=== PATIENT | female | born 1950 | race Caucasian/White ===

== ENCOUNTER 2022-07-15 12:17 | Outpatient (CLI) | payer BC, SELFPAY ==
--- NOTE | 2022-07-15 13:02 | ECHO_ITS ---
Patient Info Name: Elena Fernández Age: 71 years : 1950 Gender: Female Ht: 63 in Wt: 146 lbs BSA: 1.73 m2 HR: 78 bpm BP: 142 / 83 mmHg Technical Quality: Good Exam Date: 07/15/2022 1:45 PM Exam Location: [facility] Patient Status: Outpatient Admit Date: 07/15/2022 Staff Ordering Physician: Jareth Lopez MD Director Of Retail Operations: Zulay Izquierdo RDCS Attending Provider: Jareth Lopez MD Referring Physician: John MALIK; Exam Type: CA echo doppler color flow Study Info Indications - cardiac murmur Complete two-dimensional, color flow and Doppler transthoracic echocardiogram is performed. Summary 1. Complete two-dimensional, color flow and Doppler transthoracic echocardiogram is performed. 2. Left ventricular chamber dimension is normal. 3. Left ventricular systolic function is normal, estimated at 65-70%. 4. The left ventricular diastolic function is grade I diastolic dysfunction. 5. E/e' 10 is mildly elevated. 6. There is moderate aortic valve sclerosis. 7. There is mild aortic valve stenosis with a peak velocity of 222 cm/s, mean gradient of 11 mmHg, and aortic valve area of 1.7 cm2. 8. The mitral valve has mildly calcified annulus. 9. There is trace mitral valve regurgitation. 10. There is trace tricuspid valve regurgitation. 11. No pulmonary hypertension, estimated pulmonary arterial systolic pressure is 27 mmHg. Left Ventricle E/e' 10 is mildly elevated. Left ventricular chamber dimension is normal. Left ventricular systolic function is normal, estimated at 65-70%. The left ventricular diastolic function is grade I diastolic dysfunction. Right Ventricle Right ventricular chamber dimension is normal. Right ventricular systolic function is normal. Left Atria Left atrial chamber dimension is normal. Right Atria Right atrial chamber dimension is normal. Aortic Valve The aortic valve is trileaflet. There is moderate aortic valve sclerosis. There is mild aortic valve stenosis with a peak velocity of 222 cm/s, mean gradient of 11 mmHg, and aortic valve area of 1.7 cm2. There is no aortic valve regurgitation. Pulmonic Valve There is no pulmonic regurgitation. Mitral Valve The mitral valve has mildly calcified annulus. There is no mitral valve stenosis. There is trace mitral valve regurgitation. Tricuspid Valve There is trace tricuspid valve regurgitation. No pulmonary hypertension, estimated pulmonary arterial systolic pressure is 27 mmHg. Pericardium/Pleural There is no pericardial effusion. Inferior Vena Cava Normal inferior vena cava with >50% collapse upon inspiration consistent with normal right atrial pressure, 5 mmHg. Aorta The aortic root size at the sinus of Valsalva is normal. Left Ventricular Outflow Tract Name Value Normal LVOT 2D LVOT Diameter 2.0 cm LVOT Doppler LVOT Peak Gradient 8 mmHg LVOT Mean Gradient 5 mmHg LVOT VTI 26 cm LVOT VTI/AV VTI Ratio 0.5 LVOT Stroke Volume 80 ml
== END 2022-07-15 12:18 | disposition home or self-care (01) ==
LOC: ANHCARD 12:19
PROVIDERS: PCP Family Medicine; Visit Provider Family Medicine
DX: R01.1 Cardiac murmur, unspecified (principal); I70.0 Atherosclerosis of aorta; I77.1 Stricture of artery
CPT/HCPCS: 93306

== ENCOUNTER 2022-11-21 18:27 | Inpatient (IN) | payer MEDICARE, BC, SELFPAY ==
--- NOTE | ~2022-11-21 | XR_ITS ---
EXAMINATION: XR chest 2V Exam Date/Time: 11/21/2022 20:02 STACK SUPERVISOR HISTORY: Dyspnea on exertion, diarrhea, lightheadedness. hx htn Comparison: 11/30/2018. RESULT: Lines, tubes, and devices: Cholecystectomy clips. Lungs and pleura: Clear. Cardiomediastinal silhouette: Stable. Other: No acute osseous or upper abdominal finding. IMPRESSION: No acute cardiopulmonary process. Reviewed, dictated and finalized at location K. K SUPERVISOR
--- NOTE | ~2022-11-21 | CT_ITS ---
EXAMINATION: CT abdomen pelvis w con DATE: 11/21/2022 22:03 INDICATION: Diverticulitis. Diarrhea. Weakness. TECHNIQUE: Computed tomography (CT) of the abdomen and pelvis was performed with 100 cc Omnipaque 350 intravenous contrast. The dose-length product was 335.27 mGy-cm. Automated exposure control and iter ative reconstruction technique were employed. COMPARISON: CT dated 12/15/2012 FINDINGS: Lung bases are unremarkable. Heart size normal. No significant pleural or pericardial effus ion. Mild bilateral hydronephrosis. No obstructing stone or mass. Bladder is distended. There is alcira beto distention containing a large amount of debris. There are surgical changes of Whipple procedure. Proximal small bowel loops are mildly dilated possible transition point in the left lower abdomen. Ca nnot exclude obstruction. The liver otherwise is unremarkable. The spleen, adrenal glands and kidneys are unremarkable. No free air or free fluid there is mild diffuse thickening of the colon, consistent with colitis. There is a therosclerosis of the aorta without aneurysm. Severe lower thoracic and lumbar spondylosis. The appen konrad is not positively visualized. There is no pericecal inflammatory change to suggest appendicitis. No significant lymphadenopathy. IMPRESSION: 1. Diffuse colon wall thickening, consistent with colitis, most likely infectious or inflammatory. 2: Prominently distended stomach and proximal small bowel with associated surgical changes of Whipple procedure. Cannot exclude partial small bowel obstruction. 3: Mild bilateral hydronephrosis. No obstructing stone or mass identified. Reviewed, dictated and finalized at location A. E FLEX DEVELOPER IMPRESSION: 1. Diffuse colon wall thickening, consistent with colitis, most likely infectio us or inflammatory. 2: Prominently distended stomach and proximal small bowel with associated surgi lila changes of Whipple procedure. Cannot exclude partial small bowel obstructio n. 3: Mild bilateral hydronephrosis. No obstructing stone or mass identified.
[2022-11-21 18:38] VITALS: BP 146/62; PULSE 102; RESP 18; TEMP 36.7; O2SAT 100
[2022-11-21 19:13] LABS: Hematocrit 33.3 % (37.0-47.0); Hemoglobin 9.3 g/dL (12.0-15.0); Mean Corpuscular HGB Conc 27.9 g/dl (32-36); Mean Corpuscular Hemoglobin 20.7 pg (26-34); Mean Corpuscular Volume 74.2 fl (80-100); Platelet Count Result 356 k/mm3 (150-375); Red Blood Count 4.49 M/mm3 (4.2-5.4); Red Cell Distribution Width 16.6 % (11.5-14.5)
[2022-11-21 19:31] LABS: INR 1.2; Prothrombin Time 14.5 Seconds (11.1-14.7)
--- NOTE | 2022-11-21 19:31 | ECG_ITS ---
Measurements Intervals [place] Rate: 104 P: 26 MD: 104 QRS: 9 QRSD: 90 T: 47 QT: 362 QTc: 477 Interpretive Statements SINUS TACHYCARDIA WITH SHORT MD INTERVAL LOW-VOLTAGE QRS IN PRECORDIAL LEADS NONSPECIFIC ST ABNORMALITY BORDERLINE ECG NO PREVIOUS ECG AVAILABLE FOR COMPARISON Electronically Signed On 11-22-2022 14:40:17 FIRMWARE TEST ENGINEER by Jl Augustine M.D.
[2022-11-21 19:32] LABS: Partial Thromboplastin Time 23.2 SECONDS (22.3-36.8)
--- NOTE | 2022-11-21 19:32 | ED.GENADULT ---
HPI - General Adult General Chief complaint: GI Bleed Stated complaint: swollen epiglottis, chills Time Seen by Provider: 11/21/22 19:07 History of Present Illness HPI narrative: Is a 71-year-old female presenting to ED with chief complaint of sore throat. Symptoms started this morning associated with pain on swallowing, hoarse voice and generalized weakness. Patient has had chills but no fevers. She denies chest pain difficulty breathing, nausea vomiting or abdominal pain. Patient does note that she has been having multiple episodes of black diarrhea today. She denies any history of GI bleed although she has a history of pancreatic cancer treated with surgery. She does not take blood thinners. She does note dyspnea on exertion and generalized weakness. Related Data Home Medications Medication Instructions Recorded Confirmed albuterol sulfate 90 mcg/actuation 1 puff inhalation Q4H PRN 09/04/19 10/30/22 aerosol inhaler (ProAir HFA) rimegepant 75 mg disintegrating 75 mg PO ONCE PRN 02/24/21 10/30/22 tablet (Nurtec ODT) Allergies Allergy/AdvReac Type Severity Reaction Status Date / Time adhesive Allergy Mild Rash Verified 11/21/22 18:42 codeine Allergy Unknown Itching Verified 11/21/22 18:42 nickel Allergy Unknown Rash Verified 11/21/22 18:42 Penicillins Allergy Unknown Rash Verified 11/21/22 18:42 Sulfa (Sulfonamide Allergy Unknown Hives Verified 11/21/22 18:42 Antibiotics) acetaminophen AdvReac Intermediate ITCHING Verified 11/21/22 18:42 OVER ENTIRE BODY fish oil AdvReac Nausea Verified 11/21/22 18:42 sertraline [From Zoloft] AdvReac Blurry Verified 11/21/22 18:42 Vision METALS Allergy Mild BLISTERS Uncoded 11/21/22 18:42 Otley Allergy Mild Vomiting Uncoded 11/21/22 18:42 SULFA Allergy Unknown Rash Uncoded 11/21/22 18:42 lipitor AdvReac Severe elevated Uncoded 10/30/22 09:06 liver levels HYDROCODONE BIT AdvReac Intermediate ITCHING Uncoded 10/30/22 09:04 OVER ENTIRE BODY PMFSH Past Medical History Medical History BMI 25.0-25.9,adult BMI 26.0-26.9,adult Emesis, persistent Essential (primary) hypertension Heart murmur History of pancreatic cancer Leg pain, right Migraine headache Need for vaccination Sleep arousal disorder Spasm of thoracic back muscle Type 2 diabetes mellitus with hyperglycemia Surgical History Surgical History History of 2 sections 1972, 1976 History of appendectomy 2018 History of cataract extraction History of pancreatic surgery Whipple - 2013 Family History Family History Mother Family history of lung cancer Grandparent Family history of lung cancer Other Family history of malignant neoplasm Family history of malignant neoplasm of cervix Social History Social History Smoking status: Never smoker Alcohol intake: never Exam Narrative: APPEARANCE: No apparent distress. Head: atraumatic. EYES: EOMI, Pale conjunctiva NOSE: Atraumatic NECK: Trachea midline RESPIRATORY: No increased rate of breathing, clear to auscultation CARDIOVASCULAR: tachycardic, no peripheral edema ABDOMINAL: Non-distended soft nontender no guarding or rebound MUSCULOSKELETAl: No obvious deformities NEURO: Alert. Moving 4/4 extremities SKIN:: Warm, dry. Normal color PSYCHIATRIC: Normal affect Course Vital Signs Vital signs: Vital Signs Temperature 98.0 F 11/21/22 18:38 Pulse Rate 102 H 11/21/22 18:38 Respiratory Rate 18 11/21/22 18:38 Blood Pressure 146/62 H 11/21/22 18:38 Pulse Oximetry 100 11/21/22 18:38 Oxygen Delivery Room Air 11/21/22 18:38 Temperature 98.0 F 11/21/22 18:38 Pulse Rate 101 H 11/21/22 22:17 Respiratory Rate 18 11/21/22 22:17 Blood Pressure 129/69 11/21/22
[2022-11-21 19:41] LABS: Band Neutrophils Percent 4 % (0-6); Monocytes Absolute Manual 1.68 K/mm3 (0.1-0.90); Monocytes Percent Manual 7 % (3-9); Neutrophils Absolute Manual 21.12 K/mm3 (1.7-7.2); Neutrophils Percent Manual 84 % (46-73); Platelet Estimate Adequate (Adequate); Schistocytes None Seen (NORMAL); Total Cells Counted 100
[2022-11-21 19:42] LABS: Alanine Aminotransferase 43 U/L (6-35); Albumin Level 4.5 g/dL (3.5-5.1); Alkaline Phosphatase 109 U/L (38-126); Anion Gap 6 mmol/L (8-16); Anisocytosis 2+ (NORMAL); Aspartate Amino Transferase 61 U/L (14-36); Bilirubin,Total 0.3 mg/dL (0.2-1.3); Blood Urea Nitrogen 21 mg/dL (7-17); Calcium 8.7 mg/dL (8.4-10.2); Carbon Dioxide 28 mmol/L (22-30); Chloride 96 mmol/L (98-107); Estimated CRCL calculation 61 ml/min; Estimated Glomerular Filt Rate > 60; Glucose 150 mg/dL (65-110); Hypochromasia 1+ (NORMAL); Potassium 3.2 mmol/L (3.4-5.0); Sodium 130 mmol/L (137-145)
[2022-11-21 20:15] LABS: Strep Group A RT-PCR NOT DETECTED (Negative)
[2022-11-21 20:24] LABS: Influenza A QL RT-PCR Negative (Negative); Influenza B QL RT-PCR Negative (Negative); RSV RNA, RT-PCR Negative (Negative); SARS-CoV-2 RNA PCR Negative
[2022-11-21 20:44] LABS: Appearance Urine Clear (Clear); Bilirubin Urine Negative (Negative); Blood Urine Negative (Negative); Color Urine Yellow (Yellow); Glucose Urine UA 3+ mg/dL (Negative); Ketones Urine Negative (Negative); Leukocyte Esterase Ur Negative LEU/UL (Negative); Nitrate Urine Negative (Negative); Protein Urine Negative (Negative); Urobilinogen Urine 0.2 mg/dL (<2.0); pH Urine 5.5 (5.0-9.0)
[2022-11-21] MEDS: SODIUM CHLORIDE 0.9% IV 2,000 ML 999 ML IV CONT (20:51)
[2022-11-21 21:04] LABS: Mucus Urine Rare /lpf; RBC Urine 0-2 /hpf (0-2)
[2022-11-21 21:06] LABS: Add Urine Microscopic? YES
[2022-11-21] MEDS: POTASSIUM CHLORIDE INJ 40 MEQ in SODIUM CHLORIDE 0.9% IV 500 ML 130 MEQ IVPB (22:15)
[2022-11-21 22:17] VITALS: BP 129/69; PULSE 101; RESP 18; O2SAT 98
--- NOTE | 2022-11-21 23:30 | PC.NURSE ---
Received report from Ada STALLWORTH. First encounter w/ pt. Pt resting comfortably in bed, respirations even and unlabored, skin warm/dry. Updated pt on plan of care. All needs addressed, no question at this time.
[2022-11-22] VITALS (16 sets, daily range): BP systolic 103–147; BP diastolic 51–78; PULSE 77–103; RESP 14–20; TEMP 35.8–36.7; O2SAT 96–100; BMI 23.8
[2022-11-22 00:57] LABS: Hematocrit 29.1 % (37.0-47.0); Hemoglobin 8.1 g/dL (12.0-15.0)
[2022-11-22] MEDS: metroNIDAZOLE 500 MG/ISO 100ML 500 MG/100 ML BAG 100 MG IVPB ×3 (01:08→18:06)
--- NOTE | 2022-11-22 02:25 | PC.NURSE ---
This patient, Elena Fernández, was admitted to Medical Room 342-01. Patient/family oriented to hospital policies and general routines including ID bracelet, bed and alarms, visiting hours, pain management, procedures, bathroom and other care routines, personal items, smoking policy, room service/diet, and visiting hours. Information on how to activate the Rapid Response Team has been discussed. Patient/Family are encouraged to report perceived risks to care and to ask questions if they do not understand what they are told or what they should do.
[2022-11-22] MEDS: LACTATED RINGERS 1,000 ML 125 ML IV CONT (02:31)
--- NOTE | 2022-11-22 05:56 | PM.IMHP ---
H&P: HPI History of Present Illness Date/Time: 11/22/22 04:30 Chief Complaint: Diarrhea, swelling of her uvula Narrative: 71-year-old female with a past medical history of type 2 diabetes mellitus, pancreatic cancer status post Whipple procedure 2013, exocrine pancreatic insufficiency, essential hypertension, and hyperlipidemia who presented to the ER via private vehicle due to dry throat, swelling of her uvula, and black diarrheal stools. The patient reports that her primary care physician has recently been trying to start her on various fish wheels. He is him she tries fissure will it seems to cause severe GERD with acid washing up the back of her throat and burning her throat and uvula. This is resulted in decreased oral intake. She denies any true nausea but is having burning sour taste in her mouth. She had not discussed the recurrence of the symptoms with her primary care doctor but had stopped taking her facial will about 5-7 days ago. Heartburn symptoms have improved but the burning dry sensation in her throat and the swelling of her uvula has persisted. However she reports her uvula does not feel quite as swollen as it did previously. She denies any sensation of globus. She denies any him and emesis or coffee-ground emesis. She states that she is on omeprazole at home but this is not listed are home med rec. She states the following her removal procedures she has had frequent EGDs and colonoscopies as often as every 3 months immediately following her procedure but has graduated to where she only needs repeat scopes every 3 years. Her last scopes were in March 2021. She reports that today she had 1 large formed bowel movement that was black in color normal caliber with some cracked. After that bowel movement she then had a couple of episodes of dark black watery stools. Then the last several bowel movements that she has had have been yellow and watery in color. She has had a couple of episodes of near fecal incontinence. She denies any prior known history of a GI bleed. She has not been on any blood thinners. She does not take iron. In the ER hemoglobin was noted to be 9.3 down from prior values of 13.9 in April 2021. She is not mention a prior history of anemia. She denies any chest pain but does mention the burning sensation she had in her throat up into her chest associated with official will. She denies any dyspnea on exertion. She does frequently have sensation of resting her head when she stands too quickly but this is been going on for years and is unchanged from baseline. She has not had any loss of consciousness double vision blurred vision or history of CVA. She has a distant history kidney stones but denies any hematuria or dysuria. She does report that she urinates frequently. She denies sensation of incomplete bladder emptying. The last meal she was able to be with some Cheerios on the morning prior to coming to the ER for evaluation. She denies any abdominal pain associated with her diarrhea or other symptoms. She denies any fevers or chills or recent ill contacts. She has not had any recent travel or recent antibiotic use. In the ears contrasted CT was ordered which demonstrated diffuse colon wall thickening consistent with colitis most likely infectious or inflammatory chronic changes of prior Whipple procedure with prominently distended stomach and partial small-bowel obstruction cannot be excluded. Mild bilateral hydronephrosis without obstructing stone or mass. In the ER physician tried to obtain a rectal exam for Hemoccult stool. But there was no stool in the patient's rectal vault. Subsequently since her was no specimen the test came back negative. The patient reports that she has intentionally lost 6 lb over the last month or so code due to recommendations from her mobile product manager Dr. Grove. Viral in strep testing in the ER was negative. Patient was noted to be hyponatremic, hypokalemic and met sepsis criteria with leuko
[2022-11-22 08:13] LABS: Glucose Point of Care 118 mg/dl (65-105)
[2022-11-22 08:45] LABS: Basophils Percent Auto 0.2 % (0.2-1.2); Eosinophils Absolute Auto 0.1 K/mm3 (0-0.3); Eosinophils Percent Auto 0.7 % (0-4.4); Hematocrit 26.7 % (37.0-47.0); Hemoglobin 7.6 g/dL (12.0-15.0); Immature Granulocyte Absolute 0.07 K/mm3 (0.00-0.031); Immature Granulocyte Percent A 0.6 % (0-0.5); Immature Reticulocyte Fraction 27.4 % (3.0-15.9); Lymphocytes Absolute Auto 1.04 K/mm3 (0.9-3.2); Lymphocytes Percent Auto 9.1 % (18.3-44.2); Mean Corpuscular HGB Conc 28.5 g/dl (32-36); Mean Corpuscular Hemoglobin 21.5 pg (26-34); Mean Corpuscular Volume 75.4 fl (80-100); Mean Platelet Volume 10.3 fl (7.4-10.4); Monocytes Absolute Auto 0.9 K/mm3 (0.1-0.6); Monocytes Percent Auto 8.1 % (2.6-8.5); Neutrophils Absolute Auto 9.3 K/mm3 (1.3-6.7); Neutrophils Percent Auto 81.3 % (45.5-73.1); Platelet Count Result 265 k/mm3 (150-375); Red Blood Count 3.54 M/mm3 (4.2-5.4); Red Cell Distribution Width 16.9 % (11.5-14.5); Reticulocyte Hemoglobin Conten 19.8 pg (28.2-35.7); Reticulocyte Percent 1.83 % (0.7-4.3); Reticulocytes Absolute 0.07 B/L (32.2-175.7); White Blood Count 11.4 K/mm3 (4.5-10.0)
[2022-11-22 09:05] LABS: Transferrin 347 mg/dL (206-381)
[2022-11-22 09:07] LABS: Alanine Aminotransferase 35 U/L (6-35); Albumin Level 3.1 g/dL (3.5-5.1); Alkaline Phosphatase 82 U/L (38-126); Anion Gap 5 mmol/L (8-16); Aspartate Amino Transferase 30 U/L (14-36); Bilirubin,Total 0.3 mg/dL (0.2-1.3); Blood Urea Nitrogen 12 mg/dL (7-17); Calcium 7.7 mg/dL (8.4-10.2); Carbon Dioxide 24 mmol/L (22-30); Chloride 105 mmol/L (98-107); Estimated CRCL calculation 61 ml/min; Estimated Glomerular Filt Rate > 60; Glucose 107 mg/dL (65-110); Magnesium 1.7 mg/dL (1.6-2.3); Phosphorus 2.9 mg/dL (2.5-4.5); Potassium 2.7 mmol/L (3.4-5.0); Sodium 134 mmol/L (137-145)
[2022-11-22] MEDS: METOPROLOL SUCCINATE EXT REL 50 MG TABCR PO (09:25)
[2022-11-22] MEDS: EZETIMIBE 10 MG TABLET PO (09:25)
[2022-11-22] MEDS: PANTOPRAZOLE SODIUM IV 40 MG VIAL IV PUSH ×2 (09:26→20:28)
[2022-11-22 09:39] LABS: Iron 15 ug/dL (37-170)
[2022-11-22 09:48] LABS: Percent Iron Saturation 3 % (20-50)
[2022-11-22 10:05] LABS: Folic Acid > 20.0 ng/mL (2.76->20)
[2022-11-22] MEDS: POTASSIUM CHLORIDE 20 MEQ TABLET 40 MEQ PO (10:05)
[2022-11-22] MEDS: MAGNESIUM SULF 2 GM/WATER 50ML 2 GM/50 ML BAG IVPB (10:06)
[2022-11-22 10:12] LABS: Hepatitis B Surface Antigen Negative (Negative)
[2022-11-22 10:16] LABS: Ferritin 3.81 ng/mL (11.1-264)
[2022-11-22 10:18] LABS: HAV RESULT Negative (Negative); Hepatitis B Core IgM Result Negative (Negative)
[2022-11-22 10:22] LABS: Platelet Estimate Adequate (Adequate)
[2022-11-22 10:23] LABS: Anisocytosis 1+ (NORMAL); Hypochromasia 2+ (NORMAL); Poikilocytosis 1+ (NORMAL); Schistocytes None Seen (NORMAL)
[2022-11-22 10:29] LABS: Hepatitis C Virus Antibody Negative (Negative)
[2022-11-22 12:32] LABS: Glucose Point of Care 116 mg/dl (65-105)
[2022-11-22] MEDS: LIPASE/AMYLASE/PROTEASE 12,000 UNITS CAP 12 CAP PO (12:50)
[2022-11-22] MEDS: POTASSIUM CHLORIDE INJ 40 MEQ in SODIUM CHLORIDE 0.9% IV 500 ML 130 MEQ IVPB (12:51)
--- NOTE | 2022-11-22 13:27 | PHAR ---
The patient's home med of Creon [id number] units has been verified.
--- NOTE | 2022-11-22 14:42 | PM.IMPN ---
Progress Note: A&P Assessment and Plan (1) Sepsis: Qualifiers: Sepsis type: sepsis due to unspecified organism Sepsis acute organ dysfunction status: without acute organ dysfunction Qualified Code(s): A41.9 - Sepsis, unspecified organism Code(s): A41.9 - Sepsis, unspecified organism Status: Acute Assessment and Plan: Patient meets sepsis criteria with leukocytosis, tachycardia and source of infection with colitis. Patient received 2 L IV fluid bolus. Antibiotics were initiated in the ER as discussed below. leukocytosis improving. Will discontinue IV fluids at this time as patient has been adequately rehydrated and tolerating oral intake (2) Colitis: Code(s): K52.9 - Noninfective gastroenteritis and colitis, unspecified Status: Acute Assessment and Plan: I suspect likely infectious in nature given the patient's marked leukocytosis. Patient has been started on antibiotic therapy with Rocephin and Flagyl in the ER which is being continued. continue supportive care. Continue low-fat, diabetic diet. (3) Leukocytosis: Qualifiers: Leukocytosis type: leukemoid reaction Qualified Code(s): D72.823 - Leukemoid reaction Code(s): D72.829 - Elevated white blood cell count, unspecified Status: Acute Assessment and Plan: Likely due to colitis. marked improvement to 11 today. continue to monitor CBC with differential (4) Uvular edema: Code(s): K13.79 - Other lesions of oral mucosa Status: Acute Assessment and Plan: Likely due to reflux pharyngitis. Symptoms are not obstructing patient's airway. Continue to monitor. Will place patient on Protonix for reflux. (5) Reflux pharyngitis: Code(s): J02.9 - Acute pharyngitis, unspecified Status: Acute Assessment and Plan: Protonix as discussed above. (6) Acute hyponatremia: Code(s): E87.1 - Hypo-osmolality and hyponatremia Status: Acute Assessment and Plan: likely due to volume depletion. Sodium improved to 134 today. Continue to monitor. Holding triamterene-hydrochlorothiazide (7) Hypokalemia: Code(s): E87.6 - Hypokalemia Status: Acute Assessment and Plan: potassium declined to 2.7 today despite supplementation in the ED. administered 40 mEq IV KCl and 40 mEq p.o. KCl. Recheck potassium this afternoon and continue to supplement as needed. Mag 1.7 patient received 2 g IV magnesium sulfate and this will also be rechecked this afternoon (8) Transaminitis: Code(s): R74.01 - Elevation of levels of liver transaminase levels Status: Acute Assessment and Plan: resolved. Hepatitis panel negative. (9) Microcytic anemia: Code(s): D50.9 - Iron deficiency anemia, unspecified Status: Acute Assessment and Plan: The patient had a hemoglobin of 13 in 2020. No other recent hemoglobins available for comparison. hemoglobin 9.3 on presentation. Could be more acute in nature or a slow chronic anemia given multiple medical problems. Iron panel reviewed with mixed picture. Iron saturation very low and will begin iron supplementation. B12 is low and will begin supplementation. Stool occult blood test pending. May have GI losses in light of colitis. Consider GI consultation based on results. hemoglobin declined to 7.6 today. May have dilutional component, however given decline, will continue to trend H&H. Recheck this afternoon and monitor q.6 hours to ensure remaining stable. Subjective Date/time seen: 11/22/22 14:42 Interval history: date of service: 11/22/2022 Elena Fernández is a 71-year-old female with a history of pancreatic cancer s/p Whipple, hypertension, mitral valve prolapse, type 2 diabetes mellitus, and hyperlipidemia who is seen in follow-up for colitis. patient reports that she is feeling well. Ice she had 2 episodes of diarrhea today. She has no abdominal
[2022-11-22 15:04] LABS: Immunochemical Fecal Occult Bl Negative (N)
[2022-11-22 15:05] LABS: IFOB Positive Control Positive
[2022-11-22 15:23] LABS: Hemoglobin 7.3 g/dL (12.0-15.0)
[2022-11-22 15:32] LABS: Magnesium 2.3 mg/dL (1.6-2.3); Potassium 3.3 mmol/L (3.4-5.0)
[2022-11-22] MEDS: LACTATED RINGERS 1,000 ML 75 ML IV CONT (16:32)
[2022-11-22] MEDS: POTASSIUM CHLORIDE 20 MEQ TABLET.ER PO (16:38)
[2022-11-22 16:41] LABS: Glucose Point of Care 122 mg/dl (65-105)
[2022-11-22 20:28] LABS: Glucose Point of Care 196 mg/dl (65-105)
[2022-11-22] MEDS: POTASSIUM CHLORIDE 20 MEQ TABLET PO (21:12)
[2022-11-22] MEDS: IRON SUCROSE COMPLEX 500 MG in SODIUM CHLORIDE 0.9% IV 250 ML 78.57 MG IVPB (21:12)
[2022-11-22 21:58] LABS: Hematocrit 25.5 % (37.0-47.0); Hemoglobin 7.2 g/dL (12.0-15.0)
[2022-11-22 22:05] LABS: Lactate Dehydrogenase 122 U/L (120-246)
[2022-11-23] VITALS (11 sets, daily range): BP systolic 112–123; BP diastolic 52–57; PULSE 70–83; RESP 16–18; TEMP 36.7–36.8; O2SAT 96–100
[2022-11-23] MEDS: metroNIDAZOLE 500 MG/ISO 100ML 500 MG/100 ML BAG 100 MG IVPB ×3 (02:18→17:44)
[2022-11-23 05:50] LABS: Hematocrit 26.7 % (37.0-47.0); Hemoglobin 7.4 g/dL (12.0-15.0); Mean Corpuscular HGB Conc 27.7 g/dl (32-36); Mean Corpuscular Volume 75.9 fl (80-100); Mean Platelet Volume 11.2 fl (7.4-10.4); Platelet Count Result 286 k/mm3 (150-375); Red Blood Count 3.52 M/mm3 (4.2-5.4); Red Cell Distribution Width 17.3 % (11.5-14.5); White Blood Count 7.8 K/mm3 (4.5-10.0)
[2022-11-23 05:56] LABS: Alanine Aminotransferase 32 U/L (6-35); Alkaline Phosphatase 89 U/L (38-126); Anion Gap 2 mmol/L (8-16); Aspartate Amino Transferase 32 U/L (14-36); Bilirubin,Total 0.3 mg/dL (0.2-1.3); Blood Urea Nitrogen 8 mg/dL (7-17); Calcium 7.8 mg/dL (8.4-10.2); Carbon Dioxide 26 mmol/L (22-30); Chloride 109 mmol/L (98-107); Estimated CRCL calculation 61 ml/min; Estimated Glomerular Filt Rate > 60; Glucose 118 mg/dL (65-110); Magnesium 2.1 mg/dL (1.6-2.3); Potassium 3.8 mmol/L (3.4-5.0); Sodium 137 mmol/L (137-145)
[2022-11-23] MEDS: EZETIMIBE 10 MG TABLET PO (08:32)
[2022-11-23] MEDS: FERROUS SULFATE 324 MG TABLET PO (08:32)
[2022-11-23] MEDS: POTASSIUM CHLORIDE 20 MEQ TABLET.ER PO ×2 (08:34→16:41)
[2022-11-23] MEDS: CYANOCOBALAMIN 1,000 MCG TABLET 1000 MCG PO (08:34)
[2022-11-23] MEDS: PANTOPRAZOLE SODIUM IV 40 MG VIAL IV PUSH ×2 (08:34→19:49)
[2022-11-23] MEDS: METOPROLOL SUCCINATE EXT REL 50 MG TABCR PO (08:34)
[2022-11-23 09:09] LABS: Glucose Point of Care 127 mg/dl (65-105)
[2022-11-23 12:31] LABS: Glucose Point of Care 183 mg/dl (65-105)
--- NOTE | 2022-11-23 14:04 | PM.IMPN ---
Progress Note: A&P Assessment and Plan (1) Sepsis: Qualifiers: Sepsis type: sepsis due to unspecified organism Sepsis acute organ dysfunction status: without acute organ dysfunction Qualified Code(s): A41.9 - Sepsis, unspecified organism Code(s): A41.9 - Sepsis, unspecified organism Status: Acute Assessment and Plan: Patient met sepsis criteria on admission with leukocytosis, tachycardia and source of infection with colitis. Patient received 2 L IV fluid bolus. Continue antibiotics as below. Leukocytosis resolved. Preliminary blood cultures negative to date (2) Colitis: Code(s): K52.9 - Noninfective gastroenteritis and colitis, unspecified Status: Acute Assessment and Plan: CT of the abdomen/pelvis showed diffuse colon wall thickening consistent with colitis. Suspect likely infectious in nature given the patient's marked leukocytosis. Continue Rocephin and Flagyl. continue supportive care. Continue low-fat, diabetic diet. (3) Microcytic anemia: Code(s): D50.9 - Iron deficiency anemia, unspecified Status: Acute Assessment and Plan: The patient had a hemoglobin of 13 in 2020. No other recent labs available for comparison. Hemoglobin 9.3 on presentation with declined to 7.2 during admission. No evidence of active bleeding. Stool occult blood test is negative. Suspect acute on chronic anemia. May have dilutional component. iron panel reviewed with mixed picture. Iron saturation very low and patient has been started on iron supplementation. B12 also low and is being supplemented. H&H remaining stable at this time, hemoglobin 7.4 this morning. Recheck this evening to ensure remaining stable. Patient will need to follow-up with her primary napper runner for colonoscopy for complete workup as an outpatient following resolution of colitis. (4) Leukocytosis: Qualifiers: Leukocytosis type: leukemoid reaction Qualified Code(s): D72.823 - Leukemoid reaction Code(s): D72.829 - Elevated white blood cell count, unspecified Status: Resolved Assessment and Plan: Resolved. likely due to colitis as above. continue to monitor CBC with differential (5) Uvular edema: Code(s): K13.79 - Other lesions of oral mucosa Status: Acute Assessment and Plan: Likely due to reflux pharyngitis. Symptoms are not obstructing patient's airway. Continue to monitor. Continue protonix for reflux. (6) Reflux pharyngitis: Code(s): J02.9 - Acute pharyngitis, unspecified Status: Acute Assessment and Plan: Protonix as discussed above. Patient attributes reflux to fish oil medication which she has recently been started on. She has taken herself off of this as she did not tolerate. (7) Acute hyponatremia: Code(s): E87.1 - Hypo-osmolality and hyponatremia Status: Acute Assessment and Plan: Resolved. Sodium 137 today likely due to volume depletion and improved with rehydration. Home triamterene-hydrochlorothiazide on hold (8) Hypokalemia: Code(s): E87.6 - Hypokalemia Status: Acute Assessment and Plan: Resolved. Potassium improved with supplementation today to 3.8. Magnesium within normal limits. continue to monitor electrolytes. (9) Transaminitis: Code(s): R74.01 - Elevation of levels of liver transaminase levels Status: Acute Assessment and Plan: resolved. Hepatitis panel negative. Time Spent With Patient Time: 50 minutes Time with patient: Greater than 35 minutes Subjective Date/time seen: 11/23/22 14:04 Interval history: date of service: 11/22/2022 Elena Fernández is a 71-year-old female with a history of pancreatic cancer s/p Whipple, hypertension, mitral valve prolapse, type 2 diabetes mellitus, and hyperlipidemia who is seen in follow-up for colitis. She is feeling well. She has no abdominal pain. Reports no
[2022-11-23 17:02] LABS: Glucose Point of Care 133 mg/dl (65-105)
[2022-11-23 18:27] LABS: Hemoglobin 7.4 g/dL (12.0-15.0)
[2022-11-23 21:28] LABS: Glucose Point of Care 168 mg/dl (65-105)
[2022-11-24] VITALS (14 sets, daily range): BP systolic 109–126; BP diastolic 56–66; PULSE 70–97; RESP 16–18; TEMP 36.6–37.2; O2SAT 100
[2022-11-24] MEDS: metroNIDAZOLE 500 MG/ISO 100ML 500 MG/100 ML BAG 100 MG IVPB ×3 (02:21→17:39)
[2022-11-24 05:46] LABS: Hematocrit 27.5 % (37.0-47.0); Mean Corpuscular HGB Conc 25.5 g/dl (32-36); Mean Corpuscular Hemoglobin 21.1 pg (26-34); Mean Corpuscular Volume 83.1 fl (80-100); Mean Platelet Volume 10.9 fl (7.4-10.4); Platelet Count Result 261 k/mm3 (150-375); Red Blood Count 3.31 M/mm3 (4.2-5.4); Red Cell Distribution Width 17.5 % (11.5-14.5)
[2022-11-24 06:02] LABS: Anion Gap 4 mmol/L (8-16); Blood Urea Nitrogen 6 mg/dL (7-17); Calcium 8.1 mg/dL (8.4-10.2); Carbon Dioxide 24 mmol/L (22-30); Chloride 107 mmol/L (98-107); Estimated CRCL calculation 72 ml/min; Estimated Glomerular Filt Rate > 60; Glucose 112 mg/dL (65-110); Potassium 3.7 mmol/L (3.4-5.0); Sodium 135 mmol/L (137-145)
[2022-11-24] MEDS: CYANOCOBALAMIN 1,000 MCG TABLET 1000 MCG PO (08:32)
[2022-11-24] MEDS: PANTOPRAZOLE SODIUM IV 40 MG VIAL IV PUSH ×2 (08:32→21:13)
[2022-11-24] MEDS: POTASSIUM CHLORIDE 20 MEQ TABLET.ER PO ×2 (08:32→16:10)
[2022-11-24] MEDS: EZETIMIBE 10 MG TABLET PO (08:32)
[2022-11-24] MEDS: FERROUS SULFATE 324 MG TABLET PO (08:32)
[2022-11-24] MEDS: METOPROLOL SUCCINATE EXT REL 50 MG TABCR PO (08:34)
[2022-11-24 08:51] LABS: Glucose Point of Care 123 mg/dl (65-105)
[2022-11-24] MEDS: SODIUM CHLORIDE 0.9% IV 250 ML 30 ML IV CONT (11:59)
[2022-11-24 12:05] LABS: Glucose Point of Care 156 mg/dl (65-105)
--- NOTE | 2022-11-24 13:39 | PM.IMPN ---
Progress Note: A&P Assessment and Plan (1) Sepsis: Qualifiers: Sepsis type: sepsis due to unspecified organism Sepsis acute organ dysfunction status: without acute organ dysfunction Qualified Code(s): A41.9 - Sepsis, unspecified organism Code(s): A41.9 - Sepsis, unspecified organism Status: Acute Assessment and Plan: Patient met sepsis criteria on admission with leukocytosis, tachycardia and source of infection with colitis. Patient received 2 L IV fluid bolus. Continue antibiotics as below. Leukocytosis resolved. Preliminary blood cultures negative to date (2) Colitis: Code(s): K52.9 - Noninfective gastroenteritis and colitis, unspecified Status: Acute Assessment and Plan: CT of the abdomen/pelvis showed diffuse colon wall thickening consistent with colitis. Suspect likely infectious in nature given the patient's marked leukocytosis. Continue Rocephin and Flagyl. continue supportive care. Continue low-fat, diabetic diet. (3) Microcytic anemia: Code(s): D50.9 - Iron deficiency anemia, unspecified Status: Acute Assessment and Plan: The patient had a hemoglobin of 13 in 2020. No other recent labs available for comparison. Hemoglobin 9.3 on presentation with decline to 7.0 today. Proceed with 1 unit packed RBC transfusion. Check H&H 1 hour following completion of transfusion. Etiology is unclear. Concern for GI losses in the setting of colitis, however stool occult blood test is negative. Will proceed with GI consultation to consider colonoscopy for evaluation. Patient does have cancer history. iron panel was reviewed with mixed picture, however iron saturation very low and patient has been started on oral iron supplementation. B12 is low and is being supplemented. Retic count and LDH are within normal limits. (4) Leukocytosis: Qualifiers: Leukocytosis type: leukemoid reaction Qualified Code(s): D72.823 - Leukemoid reaction Code(s): D72.829 - Elevated white blood cell count, unspecified Status: Resolved Assessment and Plan: Resolved. likely due to colitis as above. continue to monitor CBC with differential (5) Uvular edema: Code(s): K13.79 - Other lesions of oral mucosa Status: Acute Assessment and Plan: Likely due to reflux pharyngitis. Symptoms are not obstructing patient's airway. Continue to monitor. Continue protonix for reflux. (6) Reflux pharyngitis: Code(s): J02.9 - Acute pharyngitis, unspecified Status: Acute Assessment and Plan: Protonix as discussed above. Patient attributes reflux to fish oil medication which she has recently been started on. She has taken herself off of this as she did not tolerate. (7) Acute hyponatremia: Code(s): E87.1 - Hypo-osmolality and hyponatremia Status: Acute Assessment and Plan: Resolved. Sodium 135 today. likely due to volume depletion and improved with rehydration. Home triamterene-hydrochlorothiazide on hold (8) Hypokalemia: Code(s): E87.6 - Hypokalemia Status: Acute Assessment and Plan: Resolved. Potassium improved with supplementation. Magnesium within normal limits. continue to monitor electrolytes. (9) Transaminitis: Code(s): R74.01 - Elevation of levels of liver transaminase levels Status: Acute Assessment and Plan: resolved. Hepatitis panel negative. Subjective Date/time seen: 11/24/22 13:39 Interval history: date of service: 11/24/2022 Elena Fernández is a 71-year-old female with a history of pancreatic cancer s/p Whipple, hypertension, mitral valve prolapse, type 2 diabetes mellitus, and hyperlipidemia who is seen in follow-up for colitis. doing well today. No bowel movements so far. She denies any rectal bleeding or dark and tarry stools. She denies hematuria. No dysuria, urgency, or frequency. She does endorse feeli
--- NOTE | 2022-11-24 13:51 | WPDGICN ---
Assessment and Plan Assessment and plan (1) Acute blood loss anemia: Code(s): D62 - Acute posthemorrhagic anemia Status: Acute Assessment and Plan: s/p blood transfusion monitor h/h (2) GERD (gastroesophageal reflux disease): Code(s): K21.9 - Gastro-esophageal reflux disease without esophagitis Status: Acute Assessment and Plan: more symptomatic gerd, given drop of hb, possible melena and previous history of pancreatic cancer s/p whipple will proceed with egd in am iv protonix (3) Sepsis: Qualifiers: Sepsis type: sepsis due to unspecified organism Sepsis acute organ dysfunction status: without acute organ dysfunction Qualified Code(s): A41.9 - Sepsis, unspecified organism Code(s): A41.9 - Sepsis, unspecified organism Status: Acute Assessment and Plan: on abx, ? from colitis (4) Colitis: Code(s): K52.9 - Noninfective gastroenteritis and colitis, unspecified Status: Acute Assessment and Plan: on antibiotics, denies abdominal pain (5) Leukocytosis: Qualifiers: Leukocytosis type: leukemoid reaction Qualified Code(s): D72.823 - Leukemoid reaction Code(s): D72.829 - Elevated white blood cell count, unspecified Status: Resolved (6) History of pancreatic cancer: Code(s): Z85.07 - Personal history of malignant neoplasm of pancreas Status: Acute GI Consult Note Consult date/time: 11/24/22 13:51 Reason for consult: gerd, colitis, acute blood loss anemia, h/o whipple procedure HPI: Elena Fernández is a 71 year old female with history of type 2 diabetes mellitus, pancreatic cancer status post Whipple procedure 2013, exocrine pancreatic insufficiency, essential hypertension, GERD on omeprazole since her abdominal surgery who had several egd (last one in 2020) who presented to the ER via private vehicle due to dry throat, swelling of her uvula , and black stools.?She says that her GERD has been acting up last 2 weeks and day before admission caused significant irritation to her uvula and sore throat. Also has been feeling very fatigue feeling like legs giving up on her, has not been drinking much and became dehydrated. Also had couple of episodes of dark black watery stools then yellow and watery in color.?Hemoglobin was noted to be 9.3 down from prior values of 13.9 in April 2021 but dropped further and now received blood transfusion. She denies any fevers or chills or recent ill contacts.? She has not had any recent travel or recent antibiotic use.? CT reviewed and demonstrated diffuse colon wall thickening consistent with colitis most likely infectious or inflammatory, chronic changes of prior Whipple procedure with prominently distended stomach and partial small-bowel obstruction cannot be excluded.? Mild bilateral hydronephrosis without obstructing stone or mass. She has been eating, doing better after blood transfusion. Started on iv protonix and antibiotics. She had colonoscopy in 2020 per patient. Review of Systems Constitutional: Constitutional: Reports fatigue and Reports weakness Eyes: Eyes: Denies blurry vision ENT: Reports Normal hearing present Cardiovascular: Cardiovascular: Denies chest pain Respiratory: Respiratory: Denies chest congestion Gastrointestinal: Gastrointestinal: Reports diarrhea Genitourinary: Genitourinary: Denies hematuria Musculoskeletal: Musculoskeletal: Denies arthralgias Integumentary/Breasts: Skin/Breast: Denies dry skin Neurologic: Denies Abnormal speech present Psychiatric: Psychiatric: Denies behavioral changes [facility] Past Medical History Medical History (Updated 11/24/22 @ 13:58 by Anselmo Flores MD) Acute blood loss anemia Aortic valve stenosis Echocardiogram 07/2022: EF 65-70%, grade 1 diastolic dysfunction, E/E 10 mildly elevated, moderate aortic valve sclerosis, mild aortic valve stenosis velocity of 222, gradient 11, valve area 1.7, trace
[2022-11-24 17:03] LABS: Glucose Point of Care 114 mg/dl (65-105)
[2022-11-24 18:20] LABS: Hemoglobin 9.7 g/dL (12.0-15.0)
[2022-11-24 21:18] LABS: Glucose Point of Care 143 mg/dl (65-105)
[2022-11-24 23:41] LABS: Hematocrit 31.4 % (37.0-47.0); Hemoglobin 9.3 g/dL (12.0-15.0)
[2022-11-25] VITALS (17 sets, daily range): BP systolic 71–145; BP diastolic 29–85; PULSE 68–83; RESP 14–30; TEMP 36.2–36.6; O2SAT 98–100
[2022-11-25] MEDS: metroNIDAZOLE 500 MG/ISO 100ML 500 MG/100 ML BAG 100 MG IVPB ×2 (01:38→12:31)
[2022-11-25 06:09] LABS: Basophils Percent Auto 0.5 % (0.2-1.2); Eosinophils Absolute Auto 0.3 K/mm3 (0-0.3); Eosinophils Percent Auto 4.4 % (0-4.4); Hematocrit 32.2 % (37.0-47.0); Hemoglobin 9.1 g/dL (12.0-15.0); Immature Granulocyte Absolute 0.06 K/mm3 (0.00-0.031); Immature Granulocyte Percent A 0.8 % (0-0.5); Lymphocytes Absolute Auto 1.19 K/mm3 (0.9-3.2); Lymphocytes Percent Auto 16.3 % (18.3-44.2); Mean Corpuscular HGB Conc 28.3 g/dl (32-36); Mean Corpuscular Hemoglobin 21.2 pg (26-34); Mean Corpuscular Volume 75.1 fl (80-100); Monocytes Absolute Auto 0.8 K/mm3 (0.1-0.6); Monocytes Percent Auto 10.4 % (2.6-8.5); Neutrophils Percent Auto 67.6 % (45.5-73.1); Nucleated Red Blood Cells Perc 0.5 % (0.0-0.2); Platelet Count Result 294 k/mm3 (150-375); Red Blood Count 4.29 M/mm3 (4.2-5.4); Red Cell Distribution Width 17.7 % (11.5-14.5); White Blood Count 7.3 K/mm3 (4.5-10.0)
[2022-11-25 06:25] LABS: Alanine Aminotransferase 32 U/L (6-35); Alkaline Phosphatase 74 U/L (38-126); Anion Gap 3 mmol/L (8-16); Aspartate Amino Transferase 38 U/L (14-36); Bilirubin,Total 0.3 mg/dL (0.2-1.3); Blood Urea Nitrogen 5 mg/dL (7-17); Calcium 8.1 mg/dL (8.4-10.2); Carbon Dioxide 26 mmol/L (22-30); Chloride 110 mmol/L (98-107); Estimated CRCL calculation 72 ml/min; Estimated Glomerular Filt Rate > 60; Glucose 124 mg/dL (65-110); Potassium 3.8 mmol/L (3.4-5.0); Sodium 139 mmol/L (137-145)
[2022-11-25 07:10] LABS: Anisocytosis 1+ (NORMAL); Hypochromasia 1+ (NORMAL); Microcytosis 1+ (NORMAL); Platelet Estimate Adequate (Adequate); Schistocytes None Seen (NORMAL)
[2022-11-25 08:34] LABS: Glucose Point of Care 133 mg/dl (65-105)
--- NOTE | 2022-11-25 10:30 | WPDANESEPPF ---
Anes - Initial Pre Proc Eval Procedure: Operation Date: 11/25/22 15:00 Proposed Procedures p Esophagogastroduodenoscopy - Anselmo Flores MD Date/Time: 11/25/22 10:30 Surgeon: Cassie Arriola DO Pre Op Diagnosis: colitis Patient Data Age: 71 Gender: F Height: 1.6 m Weight: 61.1 kg Last Vital Signs Temp 97.1 F L 11/25/22 10:10 Pulse 77 11/25/22 10:10 Resp 16 11/25/22 10:10 BP 145/72 H 11/25/22 10:10 Pulse Ox 100 11/25/22 10:10 O2 Del Method Room Air 11/25/22 10:10 Allergies Allergy/AdvReac Type Severity Reaction Status Date / Time Penicillins Allergy Severe Other Verified 11/25/22 10:23 adhesive Allergy Mild Rash Verified 11/25/22 10:23 codeine Allergy Unknown Itching Verified 11/25/22 10:23 nickel Allergy Unknown Rash Verified 11/25/22 10:23 Sulfa (Sulfonamide Allergy Unknown Hives Verified 11/25/22 10:23 Antibiotics) atorvastatin AdvReac Severe elevated Verified 11/25/22 10:25 liver levels fish oil AdvReac Nausea Verified 11/25/22 10:23 sertraline [From Zoloft] AdvReac Blurry Verified 11/25/22 10:23 Vision Ismay Allergy Mild Vomiting Uncoded 11/25/22 10:23 Home Medications Medication Instructions Recorded Confirmed Type albuterol sulfate 90 mcg/actuation 1 puff inhalation Q4H PRN 09/04/19 11/25/22 History aerosol inhaler (ProAir HFA) Shortness Of Breath Or Wheezing rimegepant 75 mg disintegrating 75 mg PO ONCE PRN Allergy Symptoms 02/24/21 11/25/22 History tablet (Nurtec ODT) empagliflozin 5 mg-metformin ER 2 tablet PO QAM #180 ea 08/13/22 11/25/22 Rx 1,000 mg tablet,extended release 24 hr (Synjardy XR) vdwysh-cdgowhvb-hszubfg 4 cap PO QID #1,080 caps 08/31/22 11/25/22 Rx 36,000-114,000-180,000 unit capsule,delay rel (Creon) ezetimibe 10 mg tablet (Zetia) 10 mg PO DAILY #90 tabs 10/30/22 11/25/22 Rx icosapent ethyl 1 gram capsule 2 g PO BID #120 caps 10/30/22 11/25/22 Rx (Vascepa) alprazolam 0.5 mg tablet (Xanax) 0.5 mg PO TID PRN anxiety #30 tabs 11/16/22 11/25/22 Rx metoprolol succinate 50 mg 50 mg PO DAILY 11/22/22 11/25/22 History tablet,extended release 24 hr triamterene 37.5 1 tablet PO DAILY 11/22/22 11/25/22 History mg-hydrochlorothiazide 25 mg tablet Laboratory Tests 11/21/22 11/24/22 11/24/22 19:00 12:00 16:58 WBC RBC Hgb Hct MCV MCH MCHC RDW Plt Count MPV Immature Gran % (Auto) Neut % (Auto) Lymph % (Auto) [place] % (Auto) Eos % (Auto) Baso % (Auto) Lymph # (Auto) [place] # (Auto) Eos # (Auto) Baso # (Auto) Abs Immat Gran (auto) Absolute Neuts (auto) Absolute Nucleated RBC Nucleated RBC % Platelet Estimate Hypochromasia Anisocytosis Microcytosis Schistocytes Sodium Potassium Chloride Carbon Dioxide Anion Gap BUN Creatinine Estim Creat Clear Calc Estimated GFR Glucose POC Capillary Glucose 156 mg/dl H mg/dl 114 mg/dl H mg/dl (65-105) (65-105) Calcium Total Bilirubin AST ALT Alkaline Phosphatase Total Protein Albumin Blood Type O Positive Antibody Screen Negative Crossmatch See Detail 11/24/22 11/24/22 11/24/22 18:12 19:48 23:11 WBC RBC Hgb 9.7 g/dL L g/dL 9.3 g/dL L g/dL (12.0-15.0) (12.0-15.0) Hct 33.0 % L % 31.4 % L % (37.0-47.0) (37.0-47.0) MCV MCH MCHC RDW Plt Count MP
[2022-11-25] MEDS: LACTATED RINGERS 1,000 ML 150 ML IV CONT (10:37)
[2022-11-25 10:39] LABS: Glucose Point of Care 114 mg/dl (65-105)
[2022-11-25 12:31] LABS: Glucose Point of Care 132 mg/dl (65-105)
[2022-11-25] MEDS: CYANOCOBALAMIN 1,000 MCG TABLET 1000 MCG PO (12:31)
[2022-11-25] MEDS: FERROUS SULFATE 324 MG TABLET PO (12:31)
[2022-11-25] MEDS: EZETIMIBE 10 MG TABLET PO (12:31)
[2022-11-25 16:34] LABS: Glucose Point of Care 261 mg/dl (65-105)
--- NOTE | 2022-11-25 17:00 | PM.IMPN ---
Progress Note: A&P Assessment and Plan (1) Sepsis: Qualifiers: Sepsis acute organ dysfunction status: without acute organ dysfunction Sepsis type: sepsis due to unspecified organism Qualified Code(s): A41.9 - Sepsis, unspecified organism Code(s): A41.9 - Sepsis, unspecified organism Status: Acute Assessment and Plan: Patient met sepsis criteria on admission with leukocytosis, tachycardia and source of infection with colitis. Patient received 2 L IV fluid bolus. Continue antibiotics as below. Leukocytosis resolved. Preliminary blood cultures negative to date (2) Colitis: Code(s): K52.9 - Noninfective gastroenteritis and colitis, unspecified Status: Acute Assessment and Plan: CT of the abdomen/pelvis showed diffuse colon wall thickening consistent with colitis. Suspect likely infectious in nature given the patient's marked leukocytosis. Continue Rocephin and Flagyl. continue supportive care. Continue low-fat, diabetic diet. (3) Microcytic anemia: Code(s): D50.9 - Iron deficiency anemia, unspecified Status: Acute Assessment and Plan: The patient had a hemoglobin of 13 in 2020. No other recent labs available for comparison. Hemoglobin 9.3 on presentation with decline to 7.0 this admission. Given 1 unit packed RBC transfusion. Repeat H/H 9.7 Etiology is unclear. Concern for GI losses in the setting of colitis, however stool occult blood test is negative. GI consulted and EGD shows some gastritis. Appreciate any further recommendations. Continue PPI daily. Patient does have cancer history. iron panel was reviewed with mixed picture, however iron saturation very low and patient has been started on oral iron supplementation. B12 is low and is being supplemented. Retic count and LDH are within normal limits. (4) Leukocytosis: Qualifiers: Leukocytosis type: leukemoid reaction Qualified Code(s): D72.823 - Leukemoid reaction Code(s): D72.829 - Elevated white blood cell count, unspecified Status: Resolved Assessment and Plan: Resolved. likely due to colitis as above. continue to monitor CBC with differential (5) Uvular edema: Code(s): K13.79 - Other lesions of oral mucosa Status: Resolved Assessment and Plan: Likely due to reflux pharyngitis. Symptoms are not obstructing patient's airway. Continue to monitor. Continue protonix for reflux. (6) Reflux pharyngitis: Code(s): J02.9 - Acute pharyngitis, unspecified Status: Resolved Assessment and Plan: Resolving. Protonix as discussed above. Patient attributes reflux to fish oil medication which she has recently been started on. She has taken herself off of this as she did not tolerate. (7) Acute hyponatremia: Code(s): E87.1 - Hypo-osmolality and hyponatremia Status: Acute Assessment and Plan: Resolved. Sodium 139 and stable. likely due to volume depletion and improved with rehydration. Holding triamterene-hydrochlorothiazide (8) Hypokalemia: Code(s): E87.6 - Hypokalemia Status: Acute Assessment and Plan: Resolved. Potassium improved with supplementation. Magnesium within normal limits. continue to monitor electrolytes. (9) Transaminitis: Code(s): R74.01 - Elevation of levels of liver transaminase levels Status: Acute Assessment and Plan: resolved. Hepatitis panel negative. Plan Code status: full code Disposition: home when stable. Time Spent With Patient Time: 30 minutes time spent reviewing nursing and specialist documentation, labs, vitals, and patient assessment.? Subjective Date/time seen: 11/25/22 17:00 Interval history: Patient is a 71-year-old female with a history of pancreatic cancer s/p Whipple, hypertension, mitral valve prolapse, type 2 diabetes mellitus, and hyperlipidemia admitted for management of colitis.
[2022-11-25] MEDS: levoFLOXacin 750 MG TABLET PO (17:31)
[2022-11-25] MEDS: POTASSIUM CHLORIDE 20 MEQ TABLET.ER PO (17:32)
[2022-11-25] MEDS: INSULIN ASPART (*BKC) 100 UNITS/ML SUB-Q (17:34)
[2022-11-25 21:19] LABS: Glucose Point of Care 137 mg/dl (65-105)
[2022-11-25] MEDS: metroNIDAZOLE 250 MG TABLET 500 MG PO (22:29)
[2022-11-26] VITALS: PULSE 82
[2022-11-26 04:00] VITALS: PULSE 75
[2022-11-26 04:29] VITALS: BP 133/69; PULSE 85; RESP 18; TEMP 36.2; O2SAT 100
[2022-11-26] MEDS: metroNIDAZOLE 250 MG TABLET 500 MG PO (05:35)
[2022-11-26 05:42] LABS: Hematocrit 32.5 % (37.0-47.0); Hemoglobin 9.6 g/dL (12.0-15.0)
[2022-11-26 08:00] VITALS: PULSE 78
[2022-11-26] MEDS: EZETIMIBE 10 MG TABLET PO (08:36)
[2022-11-26] MEDS: levoFLOXacin 750 MG TABLET PO (08:36)
[2022-11-26] MEDS: CYANOCOBALAMIN 1,000 MCG TABLET 1000 MCG PO (08:36)
[2022-11-26] MEDS: POTASSIUM CHLORIDE 20 MEQ TABLET.ER PO (08:36)
[2022-11-26] MEDS: FERROUS SULFATE 324 MG TABLET PO (08:36)
[2022-11-26] MEDS: PANTOPRAZOLE 40 MG TABLET PO (08:37)
[2022-11-26 08:39] VITALS: PULSE 87
[2022-11-26] MEDS: METOPROLOL SUCCINATE EXT REL 50 MG TABCR PO (08:39)
[2022-11-26 08:47] LABS: Glucose Point of Care 136 mg/dl (65-105)
--- NOTE | 2022-11-26 10:16 | WPDANESPN ---
Anes - Prog Note Post-Op Date/Time: 11/26/22 10:16 Cardiovascular status: normal Respiratory status: normal Airway patency: baseline Mental status: baseline Post-Op hydration status: normal Vital Signs: Last Vital Signs Temp 36.2 C L 11/26/22 04:29 Pulse 87 11/26/22 08:39 Resp 18 11/26/22 04:29 BP 133/69 11/26/22 04:29 Pulse Ox 100 11/26/22 04:29 O2 Del Method Room Air 11/26/22 08:00 Pain Score (VAS): 0 I/O: Intake & Output 11/25/22 11/26/22 11/26/22 23:59 07:59 15:59 Intake Total 290 300 240 Balance 290 300 240 Laboratory Tests 11/26/22 05:28 11/25/22 05:24 11/25/22 11/25/22 11/25/22 10:35 12:29 16:32 Hgb Hct POC Capillary Glucose 114 H 132 H 261 H 11/25/22 11/26/22 11/26/22 20:17 05:28 08:40 Hgb 9.6 L Hct 32.5 L POC Capillary Glucose 137 H 136 H Post-procedural complaints: none Patient Feedback: Patient satisfied with anesthetic care.
[2022-11-26 11:59] LABS: Glucose Point of Care 237 mg/dl (65-105)
[2022-11-26 12:00] VITALS: PULSE 85
[2022-11-26] MEDS: INSULIN ASPART (*BKC) 100 UNITS/ML SUB-Q (12:19)
--- NOTE | 2022-11-26 12:34 | PM.DS ---
DS: Admitting Diagnosis Discharge Date 11/26/22 1258 Admitting Diagnosis Sepsis Colitis Leukocytosis Uvular edema: Reflux pharyngitis Acute hyponatremia Hypokalemia Transaminitis Microcytic anemia DS: Discharge Diagnosis Discharge Diagnosis (1) Sepsis: Qualifiers: Sepsis acute organ dysfunction status: without acute organ dysfunction Sepsis type: sepsis due to unspecified organism Qualified Code(s): A41.9 - Sepsis, unspecified organism Code(s): A41.9 - Sepsis, unspecified organism Status: Acute Assessment and Plan: Patient met sepsis criteria on admission with leukocytosis, tachycardia and source of infection with colitis. Patient received 2 L IV fluid bolus. Treated with antibiotics as below. Leukocytosis resolved. blood cultures negative x2 (2) Colitis: Code(s): K52.9 - Noninfective gastroenteritis and colitis, unspecified Status: Acute Assessment and Plan: CT of the abdomen/pelvis showed diffuse colon wall thickening consistent with colitis. Suspect likely infectious in nature given the patient's marked leukocytosis. Treated with IV Rocephin and Flagyl, first dose 11/22/22. Transitioned to Levaquin 750 mg PO Q24 hours and PO metronidazole 500 mg PO TID on 11/25/22 and continue for 6 more days after discharge. Supportive care given. Continue low-fat, diabetic diet. (3) Microcytic anemia: Code(s): D50.9 - Iron deficiency anemia, unspecified Status: Acute Assessment and Plan: The patient had a hemoglobin of 13 in 2020. No other recent labs available for comparison. Hemoglobin 9.3 on presentation with decline to 7.0 this admission. Given 1 unit packed RBC transfusion. Repeat H/H 9.7 Etiology is unclear. Concern for GI losses in the setting of colitis, however stool occult blood test is negative. GI consulted and EGD completed 11/25/22 shows some gastritis. Continued PPI daily. Iron panel was reviewed with mixed picture, however iron saturation very low and patient has been started on oral iron supplementation. B12 is low and is being supplemented. Retic count and LDH are within normal limits. Presumed secondary to colitis. Repeat H/H in 1 week outpatient. (4) Leukocytosis: Qualifiers: Leukocytosis type: leukemoid reaction Qualified Code(s): D72.823 - Leukemoid reaction Code(s): D72.829 - Elevated white blood cell count, unspecified Status: Resolved Assessment and Plan: Resolved. likely due to colitis as above. (5) Uvular edema: Code(s): K13.79 - Other lesions of oral mucosa Status: Resolved Assessment and Plan: Resolved. Likely due to reflux pharyngitis. Symptoms are not obstructing patient's airway. Treated with protonix for reflux and significantly improved. (6) Reflux pharyngitis: Code(s): J02.9 - Acute pharyngitis, unspecified Status: Resolved Assessment and Plan: Resolved. Protonix as discussed above. Patient attributes reflux to fish oil medication which she has recently been started on. She has taken herself off of this as she did not tolerate. (7) Acute hyponatremia: Code(s): E87.1 - Hypo-osmolality and hyponatremia Status: Acute Assessment and Plan: Resolved. Sodium 130 on admission and up to 139 at discharge. likely due to volume depletion and improved with rehydration. Held triamterene-hydrochlorothiazide inpatient, but resumed on discharge. Repeat BMP in 1 week. (8) Hypokalemia: Code(s): E87.6 - Hypokalemia Status: Acute Assessment and Plan: Resolved. Potassium improved with supplementation inpatient and continued on discharge. Magnesium within normal limits. Monitor outpatient in 1 week. (9) Transaminitis: Code(s): R74.01 - Elevation of levels of liver transaminase levels Status: Acute Assessment and Plan: Resolved. Hepatitis panel negative. Likely secondary to s
== END 2022-11-26 14:02 | disposition home or self-care (01) | DRG 872 ==
LOC: ANHED 11-22 00:10 → ANH3MED 11-22 07:01
PROVIDERS: Internal Medicine Gastroenterology; Physician Assistant; Admitting Provider Internal Medicine; Emergency Provider Emergency Medicine; PCP Family Medicine; Visit Provider Nurse Practitioner Family
PROC: 0DJ08ZZ Inspection of Upper Intestinal Tract, Via Natural or Artificial Opening Endoscopic (ICD-10-PCS; CPT 43235; principal; 2022-11-25 15:00)
DX: A41.9 Sepsis, unspecified organism (principal); K52.9 Noninfective gastroenteritis and colitis, unspecified; E87.1 Hypo-osmolality and hyponatremia; D50.9 Iron deficiency anemia, unspecified; K13.79 Other lesions of oral mucosa; J02.9 Acute pharyngitis, unspecified; E87.6 Hypokalemia; I10 Essential (primary) hypertension; E11.9 Type 2 diabetes mellitus without complications; E78.5 Hyperlipidemia, unspecified; Z20.822 Contact with and (suspected) exposure to COVID-19; Z98.84 Bariatric surgery status; Z85.07 Personal history of malignant neoplasm of pancreas; Z88.5 Allergy status to narcotic agent; Z88.0 Allergy status to penicillin; Z88.2 Allergy status to sulfonamides; Z88.1 Allergy status to other antibiotic agents; Z79.899 Other long term (current) drug therapy; Z80.1 Family history of malignant neoplasm of trachea, bronchus and lung; Z80.8 Family history of malignant neoplasm of other organs or systems
CPT/HCPCS: 36415; 36430; 71046; 74177; 80048; 80053; 80074; 81001; 82274; 82607; 82728; 82746; 82948; 83540; 83550; 83615; 83735; 84100; 84132; 84443; 84466; 85014; 85018; 85025; 85027; 85046; 85610; 85730; 86850; 86900; 86901; 86923; 87040; 87637; 87651; 88305; 93005; 96361; 96365; 96366; 96367; 96375; 96376; 99285; A9270; C9113; G0378; J0696; J1756; J1815; J2704; J3475; J3480; J7030; J7040; J7050; J7120; P9016; Q9967

== ENCOUNTER 2022-12-04 06:33 | Outpatient (CLI) | payer BC, SELFPAY ==
[2022-12-04 07:30] LABS: Hematocrit 42.5 % (37.0-47.0); Hemoglobin 12.3 g/dL (12.0-15.0)
[2022-12-04 07:38] LABS: Anion Gap 5 mmol/L (8-16); Blood Urea Nitrogen 22 mg/dL (7-17); Calcium 9.1 mg/dL (8.4-10.2); Carbon Dioxide 33 mmol/L (22-30); Chloride 97 mmol/L (98-107); Estimated Glomerular Filt Rate > 60; Glucose 109 mg/dL (65-110); Potassium 4.2 mmol/L (3.4-5.0); Sodium 135 mmol/L (137-145)
== END 2022-12-04 06:34 | disposition home or self-care (01) ==
PROVIDERS: PCP Family Medicine; Visit Provider Nurse Practitioner Family
DX: D62 Acute posthemorrhagic anemia (principal); E87.6 Hypokalemia; E87.1 Hypo-osmolality and hyponatremia
CPT/HCPCS: 36415; 80048; 85014; 85018

== ENCOUNTER 2023-02-24 08:48 | Outpatient (CLI) | payer BC, SELFPAY ==
--- NOTE | ~2023-02-24 | DEXA_ITS ---
Bone Density Report Name: REBEL SCHULTZ Age: 72 Sex: Female Ethnicity: White Date of : 1950 Indication: postmenopausal; screening for osteoporosis; height loss; cancer; Referring Provider: DIONICIO BINGHAM Study: Bone densitometry was performed. Exam Date: February 24, 2023 Accession number: [id number] Bone Density: Region BMD T-score Z-score Classification AP Spine(L1, L2) 1.015 0.3 2.4 Normal Femoral Neck (Left) 0.707 -1.3 0.6 Osteopenia Total Hip (Left) 0.857 -0.7 0.9 Normal Femoral Neck (Right) 0.727 -1.1 0.8 Osteopenia Total Hip (Right) 0.856 -0.7 0.9 Normal Total Hip Mean 0.857 -0.7 0.9 Normal World Health Organization criteria for BMD impression classify patients as: Normal (T-score at or above -1.0), Osteopenia (T-score between -1.0 and -2.5), or Osteoporosis (T-score at or below -2.5). 10-year Fracture Risk(1): Major Osteoporotic Fracture 9.8% Hip Fracture 1.3% Reported Risk Factors: [place] (), Neck BMD=0.707, BMI=26.0 (1) FRAX(R) Version 3.08. Fracture probability calculated for an untreated patient. Fracture probability may be lower if the patient has received treatment. Previous Exams: Region Exam Age BMD T-score BMD Change BMD Change Date g/cm2 vs Baseline vs Previous AP Spine (L1-L2) 02/24/2023 72 1.015 0.3 -0.052 (-4.8%) -0.038 (-3.6%) 07/22/2019 68 1.053 0.7 -0.014 (-1.3%) 0.027 (2.6%)* 12/19/2016 66 1.026 0.4 -0.041 (-3.8%) -0.041 (-3.8%) 11/10/2014 63 1.067 0.8 Total Hip(Left) 02/24/2023 72 0.857 -0.7 -0.205 (-19.3% -0.136 (-13.7% 07/22/2019 68 0.993 0.4 -0.069 (-6.5%) -0.034 (-3.3%) 12/19/2016 66 1.027 0.7 -0.035 (-3.3%) -0.035 (-3.3%) 11/10/2014 63 1.062 1.0 Total Hip(Right) 02/24/2023 72 0.856 -0.7 -0.215 (-20.1% -0.143 (-14.4% 07/22/2019 68 1.000 0.5 -0.072 (-6.7%) 0.027 (2.8%)* 12/19/2016 66 0.972 0.2 -0.099 (-9.3%) -0.099 (-9.3%) 11/10/2014 63 1.071 1.1 *Denotes significance at 95% confidence level, LSC for AP Spine = 0.022 g/cm2, LSC for Total Hip = 0.027 g/cm2 Clinical Information Provided by Patient: Has used the following medications: Vitamin D Has the following medical conditions: Cancer Patient maximum height was 65 Menopause Age: 53 Onset of menses at age 10 Number of children 2 Impression: The patient has low bone mass, based on the Left Femoral Neck T-score. The patient has an e
--- NOTE | ~2023-02-24 | MM_ITS ---
EXAMINATION: MM screening [facility] w denny HISTORY: Screening mammogram TECHNIQUE: Craniocaudal and mediolateral oblique 3-D tomosynthesis images were obtained and synthetic 2-D images were generated. CAD analysis was submitted and interpreted. COMPARISON: 09/04/2019, 07/22/2019, 04/23/2018, 11/12/2015 BREAST PARENCHYMAL COMPOSITION: There are scattered areas of fibroglandular density. FINDINGS: No suspicious mass, calcification, or architectural distortion are identified in either sharon ast to suggest malignancy. There has been no suspicious interval change. IMPRESSION: 1. No mammographic evidence of malignancy. 2. Recommend routine screening mammography in one year. BI-RADS Category 1: Negative Reviewed, dictated and finalized at location A.
== END 2023-02-24 08:49 | disposition home or self-care (01) ==
LOC: ANHIMG 08:52
PROVIDERS: PCP Family Medicine; Visit Provider Obstetrics & Gynecology
DX: Z12.31 Encounter for screening mammogram for malignant neoplasm of breast (principal); Z78.0 Asymptomatic menopausal state; M85.852 Other specified disorders of bone density and structure, left thigh; M85.851 Other specified disorders of bone density and structure, right thigh
CPT/HCPCS: 77063; 77067; 77080

== ENCOUNTER 2023-06-22 12:46 | Outpatient (CLI) | payer BC, SELFPAY ==
--- NOTE | ~2023-06-22 | XR_ITS ---
Clinical Indication: Cough PA and lateral views of the chest: Comparison: 11/21/2022 Findings: The lungs are clear, without evidence of focal consolidation or pleural effusion. Cardiome diastinal silhouette is within normal limits. Bones and soft tissues are unremarkable. Impression: Normal chest. Reviewed, dictated and finalized at location . Impression: Normal chest.
== END 2023-06-22 12:47 | disposition home or self-care (01) ==
PROVIDERS: PCP Family Medicine; Visit Provider Nurse Practitioner Family
DX: R05.9 Cough, unspecified (principal); R06.02 Shortness of breath
CPT/HCPCS: 71046

== ENCOUNTER 2023-07-22 13:17 | Outpatient (CLI) | payer BC, SELFPAY ==
--- NOTE | 2023-07-22 13:30 | ECHO_ITS ---
Patient Info Name: Elena Fernández Age: 72 years : 1950 Gender: Female Ht: 63 in Wt: 155 lbs BSA: 1.79 m2 BP: 131 / 75 mmHg Technical Quality: Good Exam Date: 07/22/2023 1:39 PM Exam Location: [facility] Pulmonary Patient Status: Outpatient Admit Date: 07/22/2023 Staff Ordering Physician: Hany Grove DO Automatic Steel Tie Adjuster: Velma Caicedo RDCS Attending Provider: Hany Grove DO Referring Physician: Perfecto PATTERSON; Exam Type: CA echo doppler color flow Study Info Indications I35.0 - Nonrheumatic aortic (valve) stenosis Complete two-dimensional, color flow and Doppler transthoracic echocardiogram is performed. Summary 1. Complete two-dimensional, color flow and Doppler transthoracic echocardiogram is performed. 2. Left ventricular chamber dimension is normal. 3. Left ventricular systolic function is normal, estimated at 60-65%. 4. There is mild concentric increased left ventricular wall thickness. 5. The left ventricular diastolic function is grade II diastolic dysfunction. 6. E/e' 10 is mildly elevated. 7. Global longitudinal strain is mildly abnormal at -16.8%. 8. Left atrial chamber dimension is mildly enlarged. 9. There is severe aortic valve sclerosis. 10. There is mild aortic valve stenosis with a peak velocity of 181 cm/s, mean gradient of 8 mmHg, and aortic valve area of 1.8 cm2. 11. The mitral valve has moderately calcified annulus. 12. There is trace tricuspid valve regurgitation. 13. No pulmonary hypertension, estimated pulmonary arterial systolic pressure is 35 mmHg. Left Ventricle E/e' 10 is mildly elevated. Global longitudinal strain is mildly abnormal at -16.8%. Left ventricular chamber dimension is normal. Left ventricular systolic function is normal, estimated at 60-65%. There is mild concentric increased left ventricular wall thickness. The left ventricular diastolic function is grade II diastolic dysfunction. Right Ventricle Right ventricular chamber dimension is normal. Right ventricular systolic function is normal. Left Atria Left atrial chamber dimension is mildly enlarged. Right Atria Right atrial chamber dimension is normal. Aortic Valve The aortic valve is trileaflet. There is severe aortic valve sclerosis. There is mild aortic valve stenosis with a peak velocity of 181 cm/s, mean gradient of 8 mmHg, and aortic valve area of 1.8 cm2. There is no aortic valve regurgitation. Pulmonic Valve There is no pulmonic regurgitation. Mitral Valve The mitral valve has moderately calcified annulus. There is no mitral valve stenosis. There is no mitral valve regurgitation. Tricuspid Valve There is trace tricuspid valve regurgitation. No pulmonary hypertension, estimated pulmonary arterial systolic pressure is 35 mmHg. Pericardium/Pleural There is no pericardial effusion. Inferior Vena Cava Normal inferior vena cava with >50% collapse upon inspiration consistent with normal right atrial pressure, 5 mmHg. Aorta The aortic root size at the sinus of Valsalva is normal. Left Ventricular Outflow Tract Name Value Normal LVOT 2D LVOT Diameter 1.9 cm LVOT Doppler LVOT Peak Gradient 5 mmHg LVOT Mean Gradient 4 mmHg LVOT VTI
== END 2023-07-22 13:18 | disposition home or self-care (01) ==
PROVIDERS: PCP Family Medicine; Visit Provider Internal Medicine Cardiovascular Disease
DX: I35.0 Nonrheumatic aortic (valve) stenosis (principal); R93.1 Abnormal findings on diagnostic imaging of heart and coronary circulation
CPT/HCPCS: 93306

== ENCOUNTER 2024-08-12 16:41 | Emergency (ER) | payer BC, SELFPAY ==
--- NOTE | ~2024-08-12 | CT_ITS ---
EXAMINATION: CT abdomen pelvis wo con DATE: 08/12/2024 17:45 INDICATION: Right flank pain TECHNIQUE: Computed tomography (CT) of the abdomen and pelvis was performed without intravenous contr ast. Automated exposure control and iterative reconstruction technique were employed. The dose-length product was 280.30 mGy-cm. COMPARISON: 11/21/2022. FINDINGS: Lower thorax: Aortic valve and coronary artery calcification. Liver: Normal. Biliary/Gallbladder: Gallbladder is absent. No bile duct dilation. Pancreas: No mass or duct dilation. Surgical changes of a Whipple procedure. Spleen: Normal. Adrenals:No mass. Kidneys: No suspicious mass, obstructing stone, or hydronephrosis. GI tract: Gastric distention. Large volume of colonic feces. No small or large bowel dilation. Append ix not confidently identified. Diverticulosis without diverticulitis. Mesentery/Peritoneum: No ascites, mass, or free air. Retroperitoneum: No mass. Atherosclerotic abdominal aortic and/or arterial calcifications. Pelvis: Pelvic organs are within normal limits. Soft Tissues: Soft tissues and body wall unremarkable. Bones: No acute osseous finding. IMPRESSION: Gastric distention. Large volume of colonic feces as can be seen with constipation. Otherwise unremarkable CT abdomen and pelvis findings. Specifically, there is no evidence of obstruct chepe uropathy or nephrolithiasis Reviewed, dictated and finalized at location K. NT REP IMPRESSION: Gastric distention. Large volume of colonic feces as can be seen with constipat ion. Otherwise unremarkable CT abdomen and pelvis findings. Specifically, there is n o evidence of obstructive uropathy or nephrolithiasis
[2024-08-12 16:47] VITALS: BP 158/74; PULSE 86; RESP 16; TEMP 36.3; O2SAT 100
--- NOTE | 2024-08-12 17:13 | ED.GENADULT ---
HPI - General Adult General Chief complaint: Back Pain/Injury Stated complaint: R. flank pain x3 days Time Seen by Provider: 08/12/24 17:05 History of Present Illness HPI narrative: Patient is a 71-year-old female who presents emergency department chief complaint of right flank pain. Patient reports the pain is sharp reports that it is worsened by movement and improved with rest. The patient reports the pain has been ongoing for the last 3 days but has had some intermittent discomfort for the last few weeks. The patient reports she has prior history of a crystallization kidney reports that she has had kidney stones before in the past reports that she has prior history of a Whipple procedure for pancreatic cancer approximately 10 years ago patient reports also had appendectomy Related Data Home Medications Medication Instructions Recorded Confirmed coffee extract 50 mg-phosphatidyl tablet PO 12/25/22 07/28/24 serine 50 mg chewable tablet (Neuriva Original) niacin 500 mg tablet 500 mg PO DAILY 03/12/23 07/28/24 Allergies Allergy/AdvReac Type Severity Reaction Status Date / Time Penicillins Allergy Severe Other Verified 08/12/24 16:43 adhesive Allergy Mild Rash Verified 08/12/24 16:43 codeine Allergy Unknown Itching Verified 08/12/24 16:43 nickel Allergy Unknown Rash Verified 08/12/24 16:43 Sulfa (Sulfonamide Allergy Unknown Hives Verified 08/12/24 16:43 Antibiotics) atorvastatin AdvReac Severe elevated Verified 08/12/24 16:43 liver levels fish oil AdvReac Nausea Verified 08/12/24 16:43 sertraline [From Zoloft] AdvReac Blurry Verified 08/12/24 16:43 Vision [place] Allergy Mild Vomiting Uncoded 08/12/24 16:43 Review of Systems Review of Systems: A 10 system review of systems was completed on the patient and is negative except for what is stated in the HPI. Nursing and ancillary documentation was reviewed. 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 Essential (primary) hypertension Exocrine pancreatic insufficiency Fatigue Foot pain, bilateral GERD (gastroesophageal reflux disease) History of pancreatic cancer Hyperlipidemia Elevated LDL, high HDL Inflammatory arthritis Insomnia Kidney stones Migraine headache Mitral valve prolapse PAT (paroxysmal atrial tachycardia) Positive NICOLE (antinuclear antibody) Skin cancer screening Sleep arousal disorder Spasm of thoracic back muscle Type 2 diabetes mellitus Surgical History Surgical History History of 2 sections 1971, 1976 History of appendectomy 2017 History of colonoscopy History of esophagogastroduodenoscopy History of tonsillectomy and adenoidectomy History of Whipple procedure (2013) Status post cataract extraction of both eyes with insertion of intraocular lens Status post cholecystectomy Status post open reduction with internal fixation of fracture Family History Family History Mother Family history of lung cancer Tobacco abuse Grandparent Family history of lung cancer Father Blood infection Sibling Acute myocardial infarction Sibling No problems noted. Other Family history of malignant neoplasm Family history of malignant neoplasm of cervix Social History Social History Social History: Patient lives with her of 53 years. She retired from the [employer] 10/02/2022. She has 2 children. Code status: Full code. However she would not want to be on a ventilator long-term and would not want a tracheostomy or long-term care. 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 HEAD: Normocephalic, atraumatic. EYES: PERRLA and EOMI. ENT: Nares clear, no rhinorrhea or epistaxis. Mucous membranes moist. NECK: Supple. CHEST: Clear to auscultation. No respiratory distress. HEART: Regular rate and rhythm. No murmur heard. Normal peripheral pulses. ABDOMEN: Soft, nontender, nondistended, normal active bowel sounds. back: tenderness right flank EXTREMITIES: Normal range of motion. No edema. SKIN: Warm, dry, no rash. NEURO: No focal deficits. Alert and oriented x3. PSYCH: Normal mood and affect. Course Vital Signs Vital signs: Vital Signs Temperature 36.3 C L 08/12/24 16:47 Pulse Rate 86 08/12/24 16:47 Respiratory Rate 16 08/12/24 16:47 Blood Pressure 158/74 H 08/12/24 16:47 Pulse Oximetry 100 08/12/24 16:47 Temperature 36.3 C L 08/12/24 16:47 Pulse Rate 86 08/12/24 16:47 Respiratory Rate 16 08/12/24 16:47 Blood Pressure 158/74 H 08/12/24 16:47 Pulse Oximetry 100 08/12/24 16:47 Medical Decision Making MDM Narrative Medical decision making narrative: Differential diagnosis includes UTI, ureterolithiasis, intra-abdominal infection, abdominal aortic aneurysm, musculoskeletal back pain, constipation Laboratory studies were obtained on the patient showed CBC with white count 6.9 hemoglobin was 10.7 electrolytes are within normal limits glucose was 162 urinalysis showed trace leukocyte esterase no white blood cells no bacteria CT scan of the abdomen pelvis showed Gastric distention. Large volume of colonic feces as can be seen with constipation. Otherwise unremarkable CT abdomen and pelvis findings. Specifically, there is no evidence of obstructive uropathy or nephrolithiasis The patient will be given a dose of magnesium citrate will be started on Norflex for the back pain Vital Signs Vital Signs: Vital Signs Temperature 36.3 C L 08/12/24 16:47 Pulse Rate 86 08/12/24 16:47 Respiratory Rate 16 08/12/24 16:47 Blood Pressure 158/74 H 08/12/24 16:47 Pulse Oximetry 100 08/12/24 16:47 Temperature 36.3 C L 08/12/24 16:47 Pulse Rate 86 08/12/24 16:47 Respiratory Rate 16 08/12/24 16:47 Blood Pressure 158/74 H 08/12/24 16:47 Pulse Oximetry 100 08/12/24 16:47 Lab Data 08/12/24 17:05 08/12/24 17:06 Labs: Lab Results 08/12/24 08/12/24 Range/Units 17:05 17:06 WBC 6.9 (4.5-10.0) K/mm3 RBC 4.08 L (4.2-5.4) M/mm3 Hgb 10.7 L (12.0-15.0) g/dL Hct 36.4 L (37.0-47.0) % MCV 89.2 (80-100) fl MCH 26.2 (26-34) pg MCHC 29.4 L (32-36) g/dl RDW 18.3 H (11.5-14.5) % Plt Count 334 (150-375) k/mm3 MPV 10.9 H (7.4-10.4) fl Immature Gran % (Auto) 0.3 (0-0.5) % Neut % (Auto) 74.3 H (45.5-73.1) % Lymph % (Auto) 15.3 L (18.3-44.2) % [place] % (Auto) 8.1 (2.6-8.5) % Eos % (Auto) 1.7 (0-4.4) % Baso % (Auto) 0.3 (0.2-1.2) % Lymph # (Auto) 1.05 (0.9-3.2) K/mm3 [place] # (Auto) 0.6 (0.1-0.6) K/mm3 Eos # (Auto) 0.1 (0-0.3) K/mm3 Baso # (Auto) 0.0 (0.0-0.1) K/mm3 Abs Immat Gran (auto) 0.02 (0.00-0.031) K/mm3 Absolute Neuts (auto) 5.1 (1.3-6.7) K/mm3 Absolute Nucleated RBC 0.000 (0.0-0.012) K/mm3 Nucleated RBC % 0.0 (0.0-0.2) % Platelet Estimate Adequate (Adequate) Hypochromasia 1+ Anisocytosis 2+ Schistocytes None seen Sodium 137 (137-145) mmol/L Potassium 4.1 (3.4-5.0) mmol/L Chloride 100 (98-107) mmol/L Carbon Dioxide 27 (22-30) mmol/L Anion Gap 10 (4-12) mmol/L BUN 19 H (7-17) mg/dL Creatinine 0.70 (0.7-1.0) mg/dL Estim Creat Clear Calc 52 ml/min Estimated GFR > 60 (59 - ) Glucose 162 H (65-110) mg/dL Calcium 9.1 (8.4-10.2) mg/dL Total Bilirubin 0.1 L (0.2-1.3) mg/dL AST 22 (14-36) U/L ALT 18 (6-35) U/L Alkaline Phosphatase 119 (38-126) U/L Total Protein 7.0 (6.3-8.2) g/dL Albumin 3.8 (3.5-5.1) g/dL Urine Color Yellow (Yellow) Urine Appearance Clear (Clear) Urine pH 5.5 (5.0-9.0) Ur Specific [place] 1.018 (1.001-1.035) Urine Protein Negative (Negative) mg/dL Urine Glucose (UA) 3+ H (Negative) mg/dL Urine Ketones Negative (Negative) mg/dL Ur Blood (Man) Negative (Negative) Urine Nitrate Negative (Negative) Urine Bilirubin Negative (Negative) Urine Urobilinogen 0.2 (<2.0) mg/dL Leukocyte Esterase Rfl Trace H (Negative) OBINNA/UL Urine RBC 0-2 (0-2) /hpf Urine WBC 0-5 (0-3) /hpf Ur Squamous Epith Cells None seen (Few) /hpf Urine Bacteria None seen /hpf Urine Casts 0-2 Discharge Plan Discharge Clinical Impression: Acute right flank pain, Constipation Patient Disposition: Home, Self-Care Condition: Stable Instructions: Antibiotic Form, Constipation (ED), Flank Pain (ED) Additional Instructions: yoour CT scan showed no significant abnormality other than constipation. Laboratory studies did not show any significant abnormality improved improved follow-up with your primary care provider if your symptoms worsen please return to the emergency department Prescriptions: New orphenadrine citrate 100 mg tablet extended release 100 mg PO Q12H PRN (Reason: back pain) Qty: 20 0RF No Action niacin 500 mg tablet 500 mg PO DAILY Neuriva Original 50-50 mg tablet,chewable PO azithromycin [Zithromax] 250 mg tablet See Rx Instructions PO .COMPLEX Qty: 6 0RF Rx Instructions: take 500 mg today (day 1), then 250 mg for 4 days (days 2-5) PO trazodone 50 mg tablet 50 mg PO .qhs Qty: 30 2RF albuterol sulfate [ProAir HFA] 90 mcg/actuation HFA aerosol inhaler 2 inh inhalation Q4H PRN (Reason: shortness of breath or wheezing) Qty: 6.7 3RF cyanocobalamin (vitamin B-12) [Vitamin B-12] 1,000 mcg Tablet 1,000 mcg PO QAM Qty: 100 0RF potassium chloride [K-Tab] 20 mEq tablet extended release 20 meq PO DAILY Qty: 14 0RF Synjardy XR 10-1,000 mg tablet, IR - ER, biphasic 24hr 1 tablet PO QAM Qty: 90 1RF ferrous sulfate 325 mg (65 mg iron) tablet 325 mg PO DAILY@0800 Qty: 100 3RF clobetasol 0.05 % ointment 1 applic topical BID Qty: 45 0RF Zenpep 25,000-79,000- 105,000 unit capsule,delayed release(DR/EC) 3 cap PO QID Qty: 360 2RF Rx Instructions: administer with meals and/or snacks metoprolol succinate 50 mg tablet extended release 24 hr 50 mg PO DAILY Qty: 90 1RF Rx Instructions: Take 1 tablet by mouth once daily alprazolam 0.5 mg tablet 0.5 mg PO TID PRN (Reason: anxiety) Qty: 30 0RF levothyroxine 75 mcg tablet 75 mcg PO DAILY Qty: 90 0RF Rx Instructions: take by itself on an empty stomach and do not take iron within 3 hours of taking pantoprazole 40 mg tablet,delayed release (DR/EC) 40 mg PO QAM 30 Days Qty: 90 1RF Follow-up/Referrals: Jareth Lopez MD [Primary Care Provider] - Time of Disposition: 18:40
[2024-08-12 17:14] LABS: Basophils Percent Auto 0.3 % (0.2-1.2); Eosinophils Absolute Auto 0.1 K/mm3 (0-0.3); Eosinophils Percent Auto 1.7 % (0-4.4); Hematocrit 36.4 % (37.0-47.0); Hemoglobin 10.7 g/dL (12.0-15.0); Immature Granulocyte Absolute 0.02 K/mm3 (0.00-0.031); Immature Granulocyte Percent A 0.3 % (0-0.5); Lymphocytes Absolute Auto 1.05 K/mm3 (0.9-3.2); Lymphocytes Percent Auto 15.3 % (18.3-44.2); Mean Corpuscular HGB Conc 29.4 g/dl (32-36); Mean Corpuscular Hemoglobin 26.2 pg (26-34); Mean Corpuscular Volume 89.2 fl (80-100); Mean Platelet Volume 10.9 fl (7.4-10.4); Monocytes Absolute Auto 0.6 K/mm3 (0.1-0.6); Monocytes Percent Auto 8.1 % (2.6-8.5); Neutrophils Absolute Auto 5.1 K/mm3 (1.3-6.7); Neutrophils Percent Auto 74.3 % (45.5-73.1); Platelet Count Result 334 k/mm3 (150-375); Red Blood Count 4.08 M/mm3 (4.2-5.4); Red Cell Distribution Width 18.3 % (11.5-14.5); White Blood Count 6.9 K/mm3 (4.5-10.0)
[2024-08-12 17:20] LABS: Add Urine Microscopic? YES; Appearance Urine Clear (Clear); Bacteria Urine None Seen /hpf; Bilirubin Urine Negative (Negative); Blood Urine Negative (Negative); Color Urine Yellow (Yellow); Glucose Urine UA 3+ mg/dL (Negative); Ketones Urine Negative (Negative); Leukocyte Esterase Ur Trace LEU/UL (Negative); Nitrate Urine Negative (Negative); Non Pathogenic Casts 0-2; Protein Urine Negative (Negative); RBC Urine 0-2 /hpf (0-2); Specific Grav Ur 1.018 (1.001-1.035); Squamous Epithelial Cell Urine None Seen /hpf (Few); Urobilinogen Urine 0.2 mg/dL (<2.0); WBC Urine 0-5 /hpf (0-3); pH Urine 5.5 (5.0-9.0)
[2024-08-12 17:24] LABS: Alanine Aminotransferase 18 U/L (6-35); Albumin Level 3.8 g/dL (3.5-5.1); Alkaline Phosphatase 119 U/L (38-126); Anion Gap 10 mmol/L (4-12); Aspartate Amino Transferase 22 U/L (14-36); Bilirubin,Total 0.1 mg/dL (0.2-1.3); Blood Urea Nitrogen 19 mg/dL (7-17); Calcium 9.1 mg/dL (8.4-10.2); Carbon Dioxide 27 mmol/L (22-30); Chloride 100 mmol/L (98-107); Estimated CRCL calculation 52 ml/min; Estimated Glomerular Filt Rate > 60; Glucose 162 mg/dL (65-110); Potassium 4.1 mmol/L (3.4-5.0); Sodium 137 mmol/L (137-145)
[2024-08-12] MEDS: ONDANSETRON INJ 4 MG/2 ML VIAL IV PUSH (17:29)
[2024-08-12] MEDS: MORPHINE SULFATE (*CRX) 4 MG/ML INJ IV PUSH (17:29)
[2024-08-12 17:33] LABS: Platelet Estimate Adequate (Adequate); Schistocytes None Seen
[2024-08-12 17:34] LABS: Anisocytosis 2+; Hypochromasia 1+
[2024-08-12] MEDS: MAGNESIUM CITRATE 300 ML BTL PO (19:10)
[2024-08-12 19:12] VITALS: BP 142/84; PULSE 79; RESP 16; O2SAT 99
== END 2024-08-12 19:13 | disposition home or self-care (01) ==
PROVIDERS: Emergency Medicine; Emergency Provider Emergency Medicine; PCP Family Medicine
DX: K59.00 Constipation, unspecified (principal); I35.0 Nonrheumatic aortic (valve) stenosis; I10 Essential (primary) hypertension; I34.1 Nonrheumatic mitral (valve) prolapse; E08.9 Diabetes mellitus due to underlying condition without complications; K86.81 Exocrine pancreatic insufficiency; E03.9 Hypothyroidism, unspecified; E78.5 Hyperlipidemia, unspecified; K21.9 Gastro-esophageal reflux disease without esophagitis; Z85.07 Personal history of malignant neoplasm of pancreas; Z87.442 Personal history of urinary calculi; Z96.1 Presence of intraocular lens; Z98.42 Cataract extraction status, left eye; Z98.41 Cataract extraction status, right eye; Z90.49 Acquired absence of other specified parts of digestive tract; Z79.84 Long term (current) use of oral hypoglycemic drugs; Z79.899 Other long term (current) drug therapy
CPT/HCPCS: 36415; 74176; 80053; 81001; 85025; 96374; 96375; 99284; A9270; J2270; J2405

== ENCOUNTER 2024-09-18 13:53 | Inpatient (IN) | payer MEDICARE, BC, SELFPAY ==
--- NOTE | ~2024-09-18 | XR_ITS ---
EXAMINATION: [id number] DATE: 09/18/2024 17:20 INDICATION: Left rib pain post fall TECHNIQUE: A frontal inspiratory view of the chest and 3 views of the left ribs were obtained. COMPARISON: Chest radiograph dated 06/22/23 FINDINGS: No rib fractures identified. Lungs are clear with no focal airspace opacities, pulmonary edema, pleur al effusion or pneumothorax. Heart size is normal. Cholecystectomy clips in the right upper quadrant. Mild S-shaped scoliosis of the lumbar spine with severe spondylosis. IMPRESSION: 1. No rib fracture or acute cardiopulmonary disease. Reviewed, dictated and finalized at location A. [employer]
--- NOTE | ~2024-09-18 | XR_ITS ---
EXAMINATION: XR hip LT 2V w AP pelvis DATE: 09/18/2024 14:53 INDICATION: Left hip pain post fall TECHNIQUE: Anteroposterior view of the pelvis and anteroposterior and frog-leg lateral views of the l eft hip were obtained. COMPARISON: None. FINDINGS: Mildly displaced fracture of the left superior and inferior pubic rami. No other fractures identified . Mild osteoarthritis at the bilateral hip and sacroiliac joints. Mild lower lumbar dextrocurvature w ith moderate to severe spondylosis. IMPRESSION: 1. Mildly displaced left superior and inferior pubic rami fractures. Reviewed, dictated and finalized at location A. [employer]
[2024-09-18 14:02] VITALS: BP 150/95; PULSE 117; RESP 20; TEMP 36.8; O2SAT 100
--- NOTE | 2024-09-18 16:08 | ED_ITS ---
HPI - Extremity Injury (Lower) General Chief Complaint: Extremity Injury, Lower Stated Complaint: left hip pain after fall Time Seen by Provider: 09/18/24 14:04 History of Present Illness HPI Narrative: Patient is a 73-year-old female who presents ER with pain to left hip region. She was in [facility] when she was walking to her cabin that she is staying the night in and tripped and fell landing on her side. She is able to get to her room. Then in her room she felt a pop and has been unable to ambulate since then due to pain. She did not strike her head or lose consciousness. No shortening or external rotation leg. She is on no blood thinning medications. Related Data Home Medications ?Medication ?Instructions ?Recorded ?Confirmed ?Last Taken ?Type niacin 500 mg tablet 500 mg PO DAILY 03/12/23 09/18/24 09/17/24 History Allergies Allergy/AdvReac Type Severity Reaction Status Date / Time Penicillins Allergy Severe Other Verified 09/18/24 18:28 adhesive Allergy Mild Rash Verified 09/18/24 18:28 codeine Allergy Unknown Itching Verified 09/18/24 18:28 nickel Allergy Unknown Rash Verified 09/18/24 18:28 Sulfa (Sulfonamide Allergy Unknown Hives Verified 09/18/24 18:28 Antibiotics) atorvastatin AdvReac Severe elevated Verified 09/18/24 18:28 liver levels fish oil AdvReac Nausea Verified 09/18/24 18:28 sertraline (From Zoloft) AdvReac Blurry Verified 09/18/24 18:28 Vision [place] Allergy Mild Vomiting Uncoded 09/18/24 18:28 Review of Systems 2 Review of Systems: All systems reviewed & are unremarkable except as noted in HPI and below Constitutional: Constitutional: Reports no additional constitutional complaints Cardiovascular: Cardiovascular: Reports no additional cardiovascular complaints Respiratory: Respiratory: Reports no additional respiratory complaints [facility] Past Medical History Medical History Acquired hypothyroidism Acute blood loss anemia Aortic valve stenosis Echocardiogram 07/2022: EF 65-70%, grade 1 diastolic dysfunction, E/E 10 mildly elevated, moderate aortic valve sclerosis, mild aortic valve stenosis velocity of 222, gradient 11, valve area 1.7, trace mitral valve regurgitation, trace tricuspid regurgitation Arthralgia Bilateral hydronephrosis Bronchitis 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 Essential (primary) hypertension Exocrine pancreatic insufficiency Fatigue Foot pain, bilateral GERD (gastroesophageal reflux disease) History of pancreatic cancer Hyperlipidemia Elevated LDL, high HDL Inflammatory arthritis Insomnia Kidney stones Migraine headache Mitral valve prolapse PAT (paroxysmal atrial tachycardia) Positive NICOLE (antinuclear antibody) Skin cancer screening Sleep arousal disorder Spasm of thoracic back muscle Type 2 diabetes mellitus Surgical History Surgical History History of 2 sections 1971, 1976 History of appendectomy 2017 History of colonoscopy History of esophagogastroduodenoscopy History of tonsillectomy and adenoidectomy History of Whipple procedure (2013) Status post cataract extraction of both eyes with insertion of intraocular lens Status post cholecystectomy Status post open reduction with internal fixation of fracture Family History Family History Mother Family history of lung cancer Tobacco abuse Grandparent Family history of lung cancer Father Blood infection Sibling Acute myocardial infarction Sibling No problems noted. Other Family history of malignant neoplasm Family history of malignant neoplasm of cervix Social History Social History Social History: Patient lives with her of 53 years. She retired from the [employer] 10/02/2022. She has 2 children. Code status: Full code. However she would not want to be on a ventilator long- term and would not want a tracheostomy or long-term care. Surrogate decision maker: Smoking status: Never smoker Second hand tobacco smoke exposure: Yes Alcohol intake: never Substance use: never Substance use type: does not use Do You Feel Safe in your Home?: Yes Lack of Transportation: No Lack of Food: Never True Current Housing: I Have Housing Concerned About Future Housing: Decline to Answer Difficulty Paying Gas/Electric Bills: Decline to Answer Difficulty Paying for Meds: Decline to Answer Currently Unemployed: Decline to Answer Education: High School Diploma/GED Difficulty w/ Childcare or Family Care: Decline to Answer Living arrangements: with family Occupation/Education: retired 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 HEAD: Normocephalic, atraumatic. ENT: Mucous membranes moist. CHEST: Clear to auscultation. No respiratory distress. HEART: Regular rate and rhythm. Normal peripheral pulses. ABDOMEN: Soft, nontender, nondistended. EXTREMITIES: Limited range of motion left hip due to pain. Mainly uncomfortable at the inguinal crease. No deformity of the right lower extremity or upper extremities. SKIN: Warm, dry, no rash. NEURO: Alert and oriented x3. PSYCH: Normal mood and affect. Course Course Emergency Course: Admit to hospitalist service for pain control and PT/OT. May require placement. Orthopedic surgery consulted. Vital Signs Vital signs: Vital Signs Temperature 98.3 F 09/18/24 14:02 Pulse Rate 117 H 09/18/24 14:02 Respiratory Rate 20 09/18/24 14:02 Blood Pressure 150/95 H 09/18/24 14:02 Pulse Oximetry 100 09/18/24 14:02 Oxygen Delivery Room Air 09/18/24 14:02 Temperature 98.4 F 09/18/24 21:36 Pulse Rate 100 09/18/24 21:36 Respiratory Rate 18 09/18/24 21:36 Blood Pressure 155/61 H 09/18/24 21:36 Pulse Oximetry 98 09/18/24 21:36 Oxygen Delivery Room Air 09/18/24 14:02 MDM - Extremity Injury (Lower) Lab Data 09/18/24 16:21 09/18/24 16:21 Labs: Lab Results 09/18/24 Range/Units 16:21 WBC 10.3 H (4.5-10.0) K/mm3 RBC 3.62 L (4.2-5.4) M/mm3 Hgb 9.5 L (12.0-15.0) g/dL Hct 32.0 L (37.0-47.0) % MCV 88.4 (80-100) fl MCH 26.2 (26-34) pg MCHC 29.7 L (32-36) g/dl RDW 18.6 H (11.5-14.5) % Plt Count 360 (150-375) k/mm3 MPV 10.1 (7.4-10.4) fl Immature Gran % (Auto) 0.3 (0-0.5) % Neut % (Auto) 86.7 H (45.5-73.1) % Lymph % (Auto) 6.1 L (18.3-44.2) % [place] % (Auto) 6.7 (2.6-8.5) % Eos % (Auto) 0.1 (0-4.4) % Baso % (Auto) 0.1 L (0.2-1.2) % Lymph # (Auto) 0.63 L (0.9-3.2) K/mm3 [place] # (Auto) 0.7 H (0.1-0.6) K/mm3 Eos # (Auto) 0.0 (0-0.3) K/mm3 Baso # (Auto) 0.0 (0.0-0.1) K/mm3 Abs Immat Gran (auto) 0.03 (0.00-0.031) K/mm3 Absolute Neuts (auto) 9.0 H (1.3-6.7) K/mm3 Absolute Nucleated RBC 0.000 (0.0-0.012) K/mm3 Nucleated RBC % 0.0 (0.0-0.2) % Platelet Estimate Adequate (Adequate) Hypochromasia 1+ Anisocytosis 1+ Schistocytes None seen Sodium 136 L (137-145) mmol/L Potassium 3.9 (3.4-5.0) mmol/L Chloride 108 H (98-107) mmol/L Carbon Dioxide 26 (22-30) mmol/L Anion Gap 2 L (4-12) mmol/L BUN 13 D (7-17) mg/dL Creatinine 0.50 L (0.7-1.0) mg/dL Estim Creat Clear Calc 70 ml/min Estimated GFR > 60 (59 - ) Glucose 111 H (65-110) mg/dL Calcium 8.6 (8.4-10.2) mg/dL Total Bilirubin 0.4 (0.2-1.3) mg/dL AST 25 (14-36) U/L ALT 16 (6-35) U/L Alkaline Phosphatase 116 (38-126) U/L Total Protein 6.0 L (6.3-8.2) g/dL Albumin 3.4 L (3.5-5.1) g/dL Imaging Data Radiologist's impression: ITS Impressions Hip/Pelvis X-Ray 09/18/24 16:18 IMPRESSION: 1. Mildly displaced left superior and inferior pubic rami fractures. Discharge Plan Discharge Clinical Impression: Pelvic fracture Patient Disposition: Still a Patient Condition: Stable
[2024-09-18 16:12] VITALS: BP 138/65; PULSE 97; RESP 18; O2SAT 100
[2024-09-18] MEDS: MORPHINE SULFATE (*CRX) 2 MG/ML INJ IV PUSH (16:17)
[2024-09-18 16:26] LABS: Basophils Percent Auto 0.1 % (0.2-1.2); Eosinophils Percent Auto 0.1 % (0-4.4); Hemoglobin 9.5 g/dL (12.0-15.0); Immature Granulocyte Absolute 0.03 K/mm3 (0.00-0.031); Immature Granulocyte Percent A 0.3 % (0-0.5); Lymphocytes Absolute Auto 0.63 K/mm3 (0.9-3.2); Lymphocytes Percent Auto 6.1 % (18.3-44.2); Mean Corpuscular HGB Conc 29.7 g/dl (32-36); Mean Corpuscular Hemoglobin 26.2 pg (26-34); Mean Corpuscular Volume 88.4 fl (80-100); Mean Platelet Volume 10.1 fl (7.4-10.4); Monocytes Absolute Auto 0.7 K/mm3 (0.1-0.6); Monocytes Percent Auto 6.7 % (2.6-8.5); Neutrophils Percent Auto 86.7 % (45.5-73.1); Platelet Count Result 360 k/mm3 (150-375); Red Blood Count 3.62 M/mm3 (4.2-5.4); Red Cell Distribution Width 18.6 % (11.5-14.5); White Blood Count 10.3 K/mm3 (4.5-10.0)
[2024-09-18 16:35] LABS: Alanine Aminotransferase 16 U/L (6-35); Albumin Level 3.4 g/dL (3.5-5.1); Alkaline Phosphatase 116 U/L (38-126); Anion Gap 2 mmol/L (4-12); Aspartate Amino Transferase 25 U/L (14-36); Bilirubin,Total 0.4 mg/dL (0.2-1.3); Blood Urea Nitrogen 13 mg/dL (7-17); Calcium 8.6 mg/dL (8.4-10.2); Carbon Dioxide 26 mmol/L (22-30); Chloride 108 mmol/L (98-107); Estimated CRCL calculation 70 ml/min; Estimated Glomerular Filt Rate > 60; Glucose 111 mg/dL (65-110); Potassium 3.9 mmol/L (3.4-5.0); Sodium 136 mmol/L (137-145)
[2024-09-18 16:56] LABS: Platelet Estimate Adequate (Adequate)
[2024-09-18 16:57] LABS: Anisocytosis 1+; Hypochromasia 1+; Schistocytes None Seen
--- NOTE | 2024-09-18 18:15 | PC.NURSE ---
This patient, Elena Fernández, was admitted to 3 [facility] Surg Room 320-01. Patient/family oriented to hospital policies and general routines including ID bracelet, bed and alarms, visiting hours, pain management, procedures, bathroom and other care routines, personal items, smoking policy, room service/diet, and visiting hours. Information on how to activate the Rapid Response Team has been discussed. Patient/Family are encouraged to report perceived risks to care and to ask questions if they do not understand what they are told or what they should do.
[2024-09-18 18:23] VITALS: BP 146/66; PULSE 95; RESP 18; TEMP 36.5; O2SAT 100
[2024-09-18 18:28] VITALS: BMI 24.5
[2024-09-18] MEDS: fentaNYL CITRATE INJ (*CRX) 100 MCG/2 ML VIAL 25 MCG IV PUSH ×2 (20:48→23:49)
[2024-09-18 21:36] VITALS: BP 155/61; PULSE 100; RESP 18; TEMP 36.9; O2SAT 98
--- NOTE | 2024-09-18 23:38 | P.CONOP_ITS ---
Assessment and Plan Assessment and plan (1) Pelvic fracture: Qualifiers: Encounter type: initial encounter Fracture alignment: with stable disruption of pelvic ring Fracture type: closed Pelvic bone location: multiple parts Qualified Code(s): S32.810A - Multiple fractures of pelvis with stable disruption of pelvic ring, initial encounter for closed fracture Code(s): S32.9XXA - Fracture of unspecified parts of lumbosacral spine and pelvis, initial encounter for closed fracture Status: Acute Assessment and Plan: New patient evaluation status post injury. The history, physical exam and radiographs reviewed with the patient. fall at home onto left side. Type of fracture discussed in detail. Left pelvic fractures. Treatment options including operative and non operative treatment reviewed. Risks, benefits and alternatives of each treatment discussed in detail. The patient has declined surgical treatment. Risks of treatment decision discussed in detail. Potential problems with displacement of the fracture, loss of alignment, nonunion, malunion and dysfunction discussed in detail. The patient's questions were answered. They verbalized understanding and agreement. Conservative treatment with immobilization, ice, compression and elevation. Pain control. PT/OT with weight-bearing as tolerated. Will most likely need placement due to immobility. Currently unable to use commode. Will place Jeffers catheter until able to mobilize. History of Present Illness HPI Consult date: 09/19/24 Requesting physician: Adam Scott MD Chief complaint: pelvic fracture Narrative: 73yo woman lost balance and fell onto left side. Left hip pain, unable to bear weight. Presented to emergency room. Found to have left-sided pelvis fracture. Complains of severe pain left hip. Difficulty moving the leg. Denies loss of consciousness. Denies numbness or tingling Review of Systems 2 Constitutional: Constitutional: Denies fever(s) Eyes: Eyes: Denies blurry vision ENT: Reports Normal hearing present Cardiovascular: Cardiovascular: Denies chest pain and Denies dyspnea Respiratory: Respiratory: Denies dyspnea and Denies wheezing Gastrointestinal: Gastrointestinal: Denies abdominal pain Genitourinary: Genitourinary: Denies urinary urgency Musculoskeletal: Musculoskeletal: Reports as per HPI and Denies numbness Integumentary/Breasts: Skin/Breast: Denies changing lesions and Denies sores Neurologic: Reports Normal hearing present, Denies behavioral changes, Denies confusion, Denies numbness and Denies convulsions Psychiatric: Psychiatric: Denies behavioral changes, Denies confusion and Denies hallucinations Endocrine: Endocrine: Denies heat intolerance Hematologic/Lymphatic: Hematologic/Lymphatic: Denies easy bleeding Allergic/Immunologic: Allergic/Immunologic: Denies wheezing PMFSH Past Medical History Medical History Positive NICOLE (antinuclear antibody) Inflammatory arthritis Acquired hypothyroidism Arthralgia Foot pain, bilateral Bronchitis Insomnia Fatigue GERD (gastroesophageal reflux disease) Acute blood loss anemia Kidney stones Exocrine pancreatic insufficiency 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 Bilateral hydronephrosis Mitral valve prolapse Type 2 diabetes mellitus Sleep arousal disorder PAT (paroxysmal atrial tachycardia) Aortic valve stenosis Echocardiogram 07/2022: EF 65-70%, grade 1 diastolic dysfunction, E/E 10 mildly elevated, moderate aortic valve sclerosis, mild aortic valve stenosis velocity of 222, gradient 11, valve area 1.7, trace mitral valve regurgitation, trace tricuspid regurgitation Spasm of thoracic back muscle History of pancreatic cancer Hyperlipidemia Elevated LDL, high HDL Skin cancer screening Migraine headache Essential (primary) hypertension Surgical History Surgical History Status post open reduction with internal fixation of fracture Status post cholecystectomy History of colonoscopy History of esophagogastroduodenoscopy History of tonsillectomy and adenoidectomy History of Whipple procedure (2013) Status post cataract extraction of both eyes with insertion of intraocular lens History of appendectomy 2018 History of 2 sections 1971, 1976 Family History Family History Mother Family history of lung cancer Tobacco abuse Grandparent Family history of lung cancer Father Blood infection Sibling Acute myocardial infarction Sibling No problems noted. Other Family history of malignant neoplasm Family history of malignant neoplasm of cervix Social History Social History Social History: Patient lives with her of 53 years. She retired from the [employer] 10/02/2022. She has 2 children. Code status: Full code. However she would not want to be on a ventilator long- term and would not want a tracheostomy or long-term care. Surrogate decision maker: Smoking status: Never smoker Second hand tobacco smoke exposure: Yes Alcohol intake: never Substance use: never Substance use type: does not use Do You Feel Safe in your Home?: Yes Lack of Transportation: No Lack of Food: Never True Current Housing: I Have Housing Concerned About Future Housing: Decline to Answer Difficulty Paying Gas/Electric Bills: Decline to Answer Difficulty Paying for Meds: Decline to Answer Currently Unemployed: Decline to Answer Education: High School Diploma/GED Difficulty w/ Childcare or Family Care: Decline to Answer Living arrangements: with family Occupation/Education: retired 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[employer] Gender identity (if verbalized by the patient): Female Spiritual care concerns: No Meds Home Medications and Allergies Home Medications ?Medication ?Instructions ?Recorded ?Confirmed ?Type cyanocobalamin (vitamin B-12) 1,000 mcg PO QAM #100 tabs 11/26/22 09/18/24 Rx 1,000 mcg tablet (Vitamin B-12) potassium chloride 20 mEq 20 meq PO DAILY #14 tabs 11/26/22 09/18/24 Rx tablet,extended release (K-Tab) niacin 500 mg tablet 500 mg PO DAILY 03/12/23 09/18/24 History albuterol sulfate 90 mcg/actuation 2 inh inhalation Q4H PRN shortness 07/19/23 09/18/24 Rx aerosol inhaler (ProAir HFA) of breath or wheezing #6.7 grams ferrous sulfate 325 mg (65 mg 325 mg PO DAILY@0800 #100 tabs 03/05/24 09/18/24 Rx iron) tablet clobetasol 0.05 % topical ointment 1 applic topical BID #45 grams 03/27/24 09/18/24 Rx fbovir-[id number] 3 cap PO QID #360 caps 03/27/24 09/18/24 Rx 25,000-79,000-105,000 unit capsule,delayed rel (Zenpep) metoprolol succinate 50 mg 50 mg PO DAILY #90 tabs 06/05/24 09/18/24 Rx tablet,extended release 24 hr alprazolam 0.5 mg tablet 0.5 mg PO TID PRN anxiety #30 tabs 06/08/24 09/18/24 Rx levothyroxine 75 mcg tablet 75 mcg PO DAILY #90 tabs 07/26/24 09/18/24 Rx trazodone 50 mg tablet 50 mg PO .qhs #30 tabs 07/28/24 09/18/24 Rx pantoprazole 40 mg tablet,delayed 40 mg PO QAM 30 days #90 tabs 08/07/24 09/18/24 Rx release dicyclomine 10 mg capsule 10 mg PO TID PRN abdominal pain 08/15/24 09/18/24 Rx #60 caps empagliflozin 10 mg-metformin ER 1 tablet PO QAM #90 ea 08/18/24 09/18/24 Rx 1,000 mg tablet,extended release 24hr (Synjardy XR) plecanatide 3 mg tablet (Trulance) 3 mg PO DAILY #90 tabs 08/21/24 09/18/24 Rx Allergies Allergy/AdvReac Type Severity Reaction Status Date / Time Penicillins Allergy Severe Other Verified 09/18/24 18:28 adhesive Allergy Mild Rash Verified 09/18/24 18:28 codeine Allergy Unknown Itching Verified 09/18/24 18:28 nickel Allergy Unknown Rash Verified 09/18/24 18:28 Sulfa (Sulfonamide Allergy Unknown Hives Verified 09/18/24 18:28 Antibiotics) atorvastatin AdvReac Severe elevated Verified 09/18/24 18:28 liver levels fish oil AdvReac Nausea Verified 09/18/24 18:28 sertraline (From Zoloft) AdvReac Blurry Verified 09/18/24 18:28 Vision [place] Allergy Mild Vomiting Uncoded 09/18/24 18:28 Vital Signs Vital Signs - 24 hr 09/18/24 14:02 09/18/24 16:12 09/18/24 18:23 Temperature 98.3 F 97.7 F Pulse Rate 117 H 97 95 Respiratory Rate 20 18 18 Blood Pressure 150/95 H 138/65 146/66 H Pulse Oximetry 100 100 100 Oxygen Delivery Room Air 09/18/24 21:36 Temperature 98.4 F Pulse Rate 100 Respiratory Rate 18 Blood Pressure 155/61 H Pulse Oximetry 98 Oxygen Delivery Exam 2 Const: General: No confusion Orientation/consciousness: No confusion HENMT: Head: normal to inspection, normocephalic and atraumatic Eyes: Conjunctivae: conjunctivae normal Sclera: sclerae normal Neck: Neck: supple and nontender Chest: Chest palpation & inspection: normal inspection of the chest Resp: Effort & Inspection: normal respiratory effort and no audible wheezes Cardio: Rate: regular rate Rhythm: regular rhythm : General: Yes deferred Skin: General skin exam: no rashes or lesions noted Neuro: General: No confusion Extrem: General: capillary refill normal Right upper extremity: normal to inspection Left upper extremity: normal to inspection Right lower extremity: normal to inspection, hip/thigh Details: normal to inspection and normal ROM; no tenderness and no swelling, knee Details: no tenderness and no swelling, ankle Details: normal ROM (Able to flex and extend the ankle) and foot Details: vascular exam Details: dorsalis pedis pulse present and normal capillary refill, tendon exam (Moves all toes) and motor-sensory exam Details: light-touch normal Location: in all toes Left lower extremity: hip/thigh Details: tenderness Location: of the hip Location: laterally and anteriorly, swelling Location: of the hip and abnormal ROM Details: pain with passive ROM (Full motion deferred secondary to fracture) Details: with flexion, with internal rotation and with external rotation, ankle (no calf tenderness) Details: normal ROM (Able to flex/ extend ankle) and foot Details: toes with normal ROM (Moves all toes), vascular exam Details: dorsalis pedis pulse present and normal capillary refill and motor-sensory exam light-touch normal in all toes; no tenderness Psych: Affect: normal affect Results Labs 09/19/24 07:53 09/19/24 07:53 Labs: Abnormal lab results 09/18/24 Range/Units 16:21 WBC 10.3 H (4.5-10.0) K/mm3 RBC 3.62 L (4.2-5.4) M/mm3 Hgb 9.5 L (12.0-15.0) g/dL Hct 32.0 L (37.0-47.0) % MCHC 29.7 L (32-36) g/dl RDW 18.6 H (11.5-14.5) % Neut % (Auto) 86.7 H (45.5-73.1) % Lymph % (Auto) 6.1 L (18.3-44.2) % Baso % (Auto) 0.1 L (0.2-1.2) % Lymph # (Auto) 0.63 L (0.9-3.2) K/mm3 [place] # (Auto) 0.7 H (0.1-0.6) K/mm3 Absolute Neuts (auto) 9.0 H (1.3-6.7) K/mm3 Sodium 136 L (137-145) mmol/L Chloride 108 H (98-107) mmol/L Anion Gap 2 L (4-12) mmol/L Creatinine 0.50 L (0.7-1.0) mg/dL Glucose 111 H (65-110) mg/dL Total Protein 6.0 L (6.3-8.2) g/dL Albumin 3.4 L (3.5-5.1) g/dL H & H 12/16/24 Range/Units 16:21 Hgb 9.5 L (12.0-15.0) g/dL Hct 32.0 L (37.0-47.0) % All other labs normal. Diagnostic results Hip x-ray: image reviewed (left pelvis sup/inf rami fxs) Hip CT: image reviewed (left pubic rami fxs, lumbar spondylosis) Fracture/Casting/Strapping Pre Procedure Consent was obtained, Procedures/risks were explained, Questions were answered, Correct patient identified and Correct side and site confirmed Episode of Care New episode Location: Left hip Fracture Care Pelvis/hip/femur Pelvis, Hip, Femur: CLOSED TX PELVIC RING FX Application Exam of Affected Area: Color: Normal, Temp: Normal, Pulse: Normal, Blanching: Normal, Capillary Refill: Normal and Sensory Exam: Normal Swelling: No and Tenderness: Yes Skin Apperance: Clean and Dry and Intact Patient Tolerated Procedure Well: Yes Post Procedure Patient tolerated the procedure well?: Tolerated procedure well
[2024-09-19] MEDS: fentaNYL CITRATE INJ (*CRX) 100 MCG/2 ML VIAL 25 MCG IV PUSH (05:40)
[2024-09-19 06:00] VITALS: BP 155/67; PULSE 99; RESP 16; TEMP 36.9; O2SAT 99
--- NOTE | 2024-09-19 07:19 | PM.IMHP ---
H&P: HPI History of Present Illness Date/Time: 09/19/24 07:19 Chief Complaint: Left pelvic fractures Narrative: This is a 73-year-old female patient who reports that she was out of state when she tried to walk down a hill and began trying to run to keep from falling but ended up falling landing on her left pelvis and left ribs and left arm. Despite heavy clothing she had some scrapes to her left arm as well as felt a crack in her left pelvis. Patient had severe pain was not able to ambulate fully on her own. Her could not drive at nighttime so he helped her to bed and the next day drove back here from [facility]. Patient found to have mildly displaced left superior and inferior pubic rami fractures. Patient was evaluated by Orthopedics and decision made for non operative management. Patient was unable to stand with Orthopedics this morning so she was placed on bed rest and Jeffers catheter was inserted. PT and OT will be on board. Patient reports a past medical history of type 2 diabetes hypothyroidism pancreatic insufficiency related to Whipple procedure 10 years ago, inflammatory arthritis, recurrent bronchitis and hypertension. Patient reports having Whipple procedure in 2013 for pancreatic cancer with 3 tumors, no metastasis. Review of Systems Review of Systems: All systems reviewed & are unremarkable except as noted in HPI and below PMFSH Past Medical History Medical History Positive NICOLE (antinuclear antibody) Inflammatory arthritis Acquired hypothyroidism Arthralgia Foot pain, bilateral Bronchitis Insomnia Fatigue GERD (gastroesophageal reflux disease) Acute blood loss anemia Kidney stones Exocrine pancreatic insufficiency 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 Bilateral hydronephrosis Mitral valve prolapse Type 2 diabetes mellitus Sleep arousal disorder PAT (paroxysmal atrial tachycardia) Aortic valve stenosis Echocardiogram 07/2022: EF 65-70%, grade 1 diastolic dysfunction, E/E 10 mildly elevated, moderate aortic valve sclerosis, mild aortic valve stenosis velocity of 222, gradient 11, valve area 1.7, trace mitral valve regurgitation, trace tricuspid regurgitation Spasm of thoracic back muscle History of pancreatic cancer Hyperlipidemia Elevated LDL, high HDL Skin cancer screening Migraine headache Essential (primary) hypertension Surgical History Surgical History Status post open reduction with internal fixation of fracture Status post cholecystectomy History of colonoscopy History of esophagogastroduodenoscopy History of tonsillectomy and adenoidectomy History of Whipple procedure (2013) Status post cataract extraction of both eyes with insertion of intraocular lens History of appendectomy 2018 History of 2 sections 1972, 1976 Family History Family History Mother Family history of lung cancer Tobacco abuse Grandparent Family history of lung cancer Father Blood infection Sibling Acute myocardial infarction Sibling No problems noted. Other Family history of malignant neoplasm Family history of malignant neoplasm of cervix Social History Social History Social History: Patient lives with her of 53 years. She retired from the [employer] 10/02/2022. She has 2 children. Code status: Full code. However she would not want to be on a ventilator long-term and would not want a tracheostomy or long-term care. Surrogate decision maker: Smoking status: Never smoker Second hand tobacco smoke exposure: Yes Alcohol intake: never Substance use: never Substance use type: does not use Do You Feel Safe in your Home?: Yes Lack of Transportation: No Lack of Food: Never True Current Housing: I Have Housing Concerned About Future Housing: Decline to Answer Difficulty Paying Gas/Electric Bills: Decline to Answer Difficulty Paying for Meds: Decline to Answer Currently Unemployed: Decline to Answer Education: High School Diploma/GED Difficulty w/ Childcare or Family Care: Decline to Answer Living arrangements: with family Occupation/Education: retired 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[employer] Gender identity (if verbalized by the patient): Female Spiritual care concerns: No Meds Home Medications and Allergies Home Medications ?Medication ?Instructions ?Recorded ?Confirmed ?Type cyanocobalamin (vitamin B-12) 1,000 mcg PO QAM #100 tabs 11/26/22 09/18/24 Rx 1,000 mcg tablet (Vitamin B-12) potassium chloride 20 mEq 20 meq PO DAILY #14 tabs 11/26/22 09/18/24 Rx tablet,extended release (K-Tab) niacin 500 mg tablet 500 mg PO DAILY 03/12/23 09/18/24 History albuterol sulfate 90 mcg/actuation 2 inh inhalation Q4H PRN shortness 07/19/23 09/18/24 Rx aerosol inhaler (ProAir HFA) of breath or wheezing #6.7 grams ferrous sulfate 325 mg (65 mg 325 mg PO DAILY@0800 #100 tabs 03/05/24 09/18/24 Rx iron) tablet clobetasol 0.05 % topical ointment 1 applic topical BID #45 grams 03/27/24 09/18/24 Rx atmvdl-jngchxcm-vmcwvnv 3 cap PO QID #360 caps 03/27/24 09/18/24 Rx 25,000-79,000-105,000 unit capsule,delayed rel (Zenpep) metoprolol succinate 50 mg 50 mg PO DAILY #90 tabs 06/05/24 09/18/24 Rx tablet,extended release 24 hr alprazolam 0.5 mg tablet 0.5 mg PO TID PRN anxiety #30 tabs 06/08/24 09/18/24 Rx levothyroxine 75 mcg tablet 75 mcg PO DAILY #90 tabs 07/26/24 09/18/24 Rx trazodone 50 mg tablet 50 mg PO .qhs #30 tabs 07/28/24 09/18/24 Rx pantoprazole 40 mg tablet,delayed 40 mg PO QAM 30 days #90 tabs 08/07/24 09/18/24 Rx release dicyclomine 10 mg capsule 10 mg PO TID PRN abdominal pain 08/15/24 09/18/24 Rx #60 caps empagliflozin 10 mg-metformin ER 1 tablet PO QAM #90 ea 08/18/24 09/18/24 Rx 1,000 mg tablet,extended release 24hr (Synjardy XR) plecanatide 3 mg tablet (Trulance) 3 mg PO DAILY #90 tabs 08/21/24 09/18/24 Rx Allergies Allergy/AdvReac Type Severity Reaction Status Date / Time Penicillins Allergy Severe Other Verified 09/18/24 18:28 adhesive Allergy Mild Rash Verified 09/18/24 18:28 codeine Allergy Unknown Itching Verified 09/18/24 18:28 nickel Allergy Unknown Rash Verified 09/18/24 18:28 Sulfa (Sulfonamide Allergy Unknown Hives Verified 09/18/24 18:28 Antibiotics) atorvastatin AdvReac Severe elevated Verified 09/18/24 18:28 liver levels fish oil AdvReac Nausea Verified 09/18/24 18:28 sertraline (From Zoloft) AdvReac Blurry Verified 09/18/24 18:28 [facility] [place] Allergy Mild Vomiting Uncoded 09/18/24 18:28 Vital Signs Vital Signs - 24 hr 09/18/24 14:02 09/18/24 16:12 09/18/24 18:23 Temperature 36.8 C 36.5 C Pulse Rate 117 H 97 95 Respiratory Rate 20 18 18 Blood Pressure 150/95 H 138/65 146/66 H Pulse Oximetry 100 100 100 Oxygen Delivery Room Air 09/18/24 21:36 09/19/24 06:00 Temperature 36.9 C 36.9 C Pulse Rate 100 99 Respiratory Rate 18 16 Blood Pressure 155/61 H 155/67 H Pulse Oximetry 98 99 Oxygen Delivery Exam Narrative: GENERAL: Well-appearing, well-nourished, and in no acute distress. HEAD: Normocephalic, atraumatic. ENT: Mucous membranes moist. CHEST: Clear to auscultation. No respiratory distress. HEART: Regular rate and rhythm. Normal peripheral pulses. ABDOMEN: Soft, nontender, nondistended. EXTREMITIES: Limited range of motion left hip due to pain. Mainly uncomfortable at the inguinal crease. No deformity of the right lower extremity or upper extremities. SKIN: Warm, dry, no rash. Abrasions noted to the left knee left elbow left hand and a bruise to the right hand NEURO: Alert and oriented x3. PSYCH: Normal mood and affect. H&P: Results Labs Labs: Short CBC 09/18/24 Range/Units 16:21 WBC 10.3 H (4.5-10.0) K/mm3 Hgb 9.5 L (12.0-15.0) g/dL Hct 32.0 L (37.0-47.0) % Plt Count 360 (150-375) k/mm3 [facility] 09/18/24 16:21 Sodium 136 L Potassium 3.9 Chloride 108 H Carbon Dioxide 26 BUN 13 D Creatinine 0.50 L Glucose 111 H Calcium 8.6 Liver Function 09/18/24 Range/Units 16:21 Total Bilirubin 0.4 (0.2-1.3) mg/dL AST 25 (14-36) U/L ALT 16 (6-35) U/L Alkaline Phosphatase 116 (38-126) U/L Albumin 3.4 L (3.5-5.1) g/dL Pulse Oximetry SpO2 results: 95-99% on room air Attestation: I personally reviewed and interpreted this pulse oximetry as follows: Interpretation: No need for supplemental oxygenation at this time Imaging X-ray pelvis and left hip: Radiologist's impression: EXAMINATION: XR hip LT 2V w AP pelvis DATE: 09/18/2024 14:53 INDICATION: Left hip pain post fall TECHNIQUE: Anteroposterior view of the pelvis and anteroposterior and frog-leg lateral views of the left hip were obtained. COMPARISON: None. FINDINGS: Mildly displaced fracture of the left superior and inferior pubic rami. No other fractures identified. Mild osteoarthritis at the bilateral hip and sacroiliac joints. Mild lower lumbar dextrocurvature with moderate to severe spondylosis. IMPRESSION: 1. Mildly displaced left superior and inferior pubic rami fractures. Reviewed, dictated and finalized at location A. WARE DESIGN ANALYST Chest x-ray: Radiologist's impression: EXAMINATION: [id number] DATE: 09/18/2024 17:20 INDICATION: Left rib pain post fall TECHNIQUE: A frontal inspiratory view of the chest and 3 views of the left ribs were obtained. COMPARISON: Chest radiograph dated 06/22/23 FINDINGS: No rib fractures identified. Lungs are clear with no focal airspace opacities, pulmonary edema, pleural effusion or pneumothorax. Heart size is normal. Cholecystectomy clips in the right upper quadrant. Mild S-shaped scoliosis of the lumbar spine with severe spondylosis. IMPRESSION: 1. No rib fracture or acute cardiopulmonary disease. Reviewed, dictated and finalized at location A. WARE DESIGN ANALYST Assessment and Plan Assessment and plan (1) Pelvic fracture: Qualifiers: Encounter type: initial encounter Fracture alignment: with stable disruption of pelvic ring Fracture type: closed Pelvic bone location: multiple parts Qualified Code(s): S32.810A - Multiple fractures of pelvis with stable disruption of pelvic ring, initial encounter for closed fracture Code(s): S32.9XXA - Fracture of unspecified parts of lumbosacral spine and pelvis, initial encounter for closed fracture Status: Acute Assessment and Plan: Left inferior and superior pubic rami fractures Patient evaluated by Dr. Fowler, non operative management Patient currently on bed rest with Jeffers catheter per orthopedics PT and OT to see Patient will likely require SNF placement for rehab (2) Hypothyroidism: Code(s): E03.9 - Hypothyroidism, unspecified Status: Acute Assessment and Plan: Continue home levothyroxine (3) Inflammatory arthritis: Code(s): M19.90 - Unspecified osteoarthritis, unspecified site Status: Acute Assessment and Plan: Continue home medications, and no current inflamed joints (4) Type 2 diabetes mellitus with hyperglycemia: Qualifiers: Diabetes mellitus mcfp insulin use: without assistant terminal manager use Qualified Code(s): E11.65 - Type 2 diabetes mellitus with hyperglycemia Code(s): E11.65 - Type 2 diabetes mellitus with hyperglycemia Status: Acute Assessment and Plan: Type 2 diabetes family to bring Synjardy A1c 5.9 (5) Essential (primary) hypertension: Code(s): I10 - Essential (primary) hypertension Status: Acute Assessment and Plan: Continue home medications, blood pressure reviewed and no acute intervention necessary Quality VTE Prophylaxis VTE prophylaxis: mechanical ordered (Patient declining use stating that she is moving her legs frequently to keep them mobile) If No VTE Prophylaxis Answer both mechanical and pharmacologic: Reason no mechanical VTE proph: medical contraindication (Fresh left pubic rami fractures, defer to Orthopedics) Hospitalist MIPS Advance Care Plan I have confirmed that the patient's Advanced Care Plan is present, code status is documented, or surrogate decision maker is listed in patient medical record.: Yes Medication Reconciliation I have utilized all available resources to obtain, update and review the patients current medications (includes all prescriptions, OTC, herbals, cannabis, and nutritional supplements).: Yes
[2024-09-19 08:05] LABS: Basophils Percent Auto 0.1 % (0.2-1.2); Eosinophils Absolute Auto 0.1 K/mm3 (0-0.3); Eosinophils Percent Auto 0.8 % (0-4.4); Hematocrit 31.1 % (37.0-47.0); Hemoglobin 9.2 g/dL (12.0-15.0); Immature Granulocyte Absolute 0.05 K/mm3 (0.00-0.031); Immature Granulocyte Percent A 0.5 % (0-0.5); Lymphocytes Absolute Auto 0.57 K/mm3 (0.9-3.2); Lymphocytes Percent Auto 5.9 % (18.3-44.2); Mean Corpuscular HGB Conc 29.6 g/dl (32-36); Mean Corpuscular Hemoglobin 26.4 pg (26-34); Mean Corpuscular Volume 89.1 fl (80-100); Mean Platelet Volume 10.1 fl (7.4-10.4); Monocytes Absolute Auto 0.7 K/mm3 (0.1-0.6); Monocytes Percent Auto 7.1 % (2.6-8.5); Neutrophils Absolute Auto 8.2 K/mm3 (1.3-6.7); Neutrophils Percent Auto 85.6 % (45.5-73.1); Platelet Count Result 336 k/mm3 (150-375); Red Blood Count 3.49 M/mm3 (4.2-5.4); Red Cell Distribution Width 18.4 % (11.5-14.5); White Blood Count 9.6 K/mm3 (4.5-10.0)
[2024-09-19 08:13] LABS: Alanine Aminotransferase 13 U/L (6-35); Albumin Level 3.1 g/dL (3.5-5.1); Alkaline Phosphatase 101 U/L (38-126); Anion Gap 5 mmol/L (4-12); Aspartate Amino Transferase 22 U/L (14-36); Bilirubin,Total 0.3 mg/dL (0.2-1.3); Blood Urea Nitrogen 12 mg/dL (7-17); Calcium 8.4 mg/dL (8.4-10.2); Carbon Dioxide 27 mmol/L (22-30); Chloride 105 mmol/L (98-107); Estimated CRCL calculation 60 ml/min; Estimated Glomerular Filt Rate > 60; Glucose 139 mg/dL (65-110); Lipase 14 U/L (23-300); Magnesium 1.8 mg/dL (1.6-2.3); Potassium 3.8 mmol/L (3.4-5.0); Sodium 137 mmol/L (137-145)
[2024-09-19 08:38] VITALS: O2SAT 99
[2024-09-19 08:52] LABS: Anisocytosis 1+; Platelet Estimate Adequate (Adequate); Schistocytes None Seen
[2024-09-19 09:10] VITALS: PULSE 88
[2024-09-19] MEDS: METOPROLOL SUCCINATE EXT REL 50 MG TABCR PO (09:10)
[2024-09-19] MEDS: CYANOCOBALAMIN 1,000 MCG TABLET 1000 MCG PO (09:10)
[2024-09-19] MEDS: POTASSIUM CHLORIDE 20 MEQ ER TABLET PO (09:10)
[2024-09-19] MEDS: EMPAGLIFLOZIN 10 MG TABLET BY MOUTH (09:10)
[2024-09-19 09:25] LABS: Glucose Point of Care 185 mg/dl (65-105)
[2024-09-19] MEDS: NIACIN SA 500 MG TABLET PO (09:26)
[2024-09-19] MEDS: HYDROcodone/acetaminophen (*CRX) 5-325 MG TABLET 1 TAB PO ×2 (09:55→21:49)
[2024-09-19 11:57] LABS: Glucose Point of Care 147 mg/dl (65-105)
[2024-09-19] MEDS: FERROUS SULFATE 325 MG TABLET DR BY MOUTH (12:04)
[2024-09-19 13:19] LABS: Hemoglobin A1C 5.9 % (<5.7)
[2024-09-19 14:00] VITALS: BP 141/70; PULSE 86; RESP 17; TEMP 36.6; O2SAT 95
[2024-09-19 16:40] LABS: Glucose Point of Care 135 mg/dl (65-105)
[2024-09-19] MEDS: metFORMIN HCL 500 MG TABLET PO (18:32)
--- NOTE | 2024-09-19 18:56 | PHAR ---
PT'S HOME MED ZENPEP [id number] UNITS DELAYED RELEASE CAPSULE VERIFIED BY PHARMACY
[2024-09-19] MEDS: traZODone HCL 50 MG TABLET PO (21:49)
[2024-09-19] MEDS: PANTOPRAZOLE 40 MG TABLET PO (21:49)
[2024-09-19 22:00] VITALS: BP 136/68; PULSE 87; RESP 18; TEMP 36.5; O2SAT 97
[2024-09-19 22:14] LABS: Glucose Point of Care 136 mg/dl (65-105)
[2024-09-20 06:00] VITALS: BP 124/65; PULSE 82; RESP 16; TEMP 36.8; O2SAT 98
[2024-09-20] MEDS: LEVOTHYROXINE SODIUM 75 MCG TABLET PO (06:46)
[2024-09-20 07:16] LABS: Basophils Percent Auto 0.3 % (0.2-1.2); Eosinophils Absolute Auto 0.2 K/mm3 (0-0.3); Eosinophils Percent Auto 2.5 % (0-4.4); Hematocrit 33.2 % (37.0-47.0); Hemoglobin 9.6 g/dL (12.0-15.0); Immature Granulocyte Absolute 0.02 K/mm3 (0.00-0.031); Immature Granulocyte Percent A 0.3 % (0-0.5); Mean Corpuscular HGB Conc 28.9 g/dl (32-36); Mean Corpuscular Hemoglobin 26.2 pg (26-34); Mean Corpuscular Volume 90.5 fl (80-100); Mean Platelet Volume 10.4 fl (7.4-10.4); Monocytes Absolute Auto 0.8 K/mm3 (0.1-0.6); Monocytes Percent Auto 10.6 % (2.6-8.5); Neutrophils Absolute Auto 5.5 K/mm3 (1.3-6.7); Neutrophils Percent Auto 75.3 % (45.5-73.1); Platelet Count Result 336 k/mm3 (150-375); Red Blood Count 3.67 M/mm3 (4.2-5.4); Red Cell Distribution Width 17.8 % (11.5-14.5); White Blood Count 7.3 K/mm3 (4.5-10.0)
[2024-09-20 07:20] LABS: Alanine Aminotransferase 12 U/L (6-35); Albumin Level 3.5 g/dL (3.5-5.1); Alkaline Phosphatase 102 U/L (38-126); Anion Gap 5 mmol/L (4-12); Aspartate Amino Transferase 19 U/L (14-36); Bilirubin,Total 0.4 mg/dL (0.2-1.3); Blood Urea Nitrogen 12 mg/dL (7-17); Calcium 8.8 mg/dL (8.4-10.2); Carbon Dioxide 28 mmol/L (22-30); Chloride 102 mmol/L (98-107); Estimated CRCL calculation 60 ml/min; Estimated Glomerular Filt Rate > 60; Glucose 124 mg/dL (65-110); Magnesium 1.9 mg/dL (1.6-2.3); Potassium 4.1 mmol/L (3.4-5.0); Sodium 135 mmol/L (137-145)
[2024-09-20] MEDS: HYDROcodone/acetaminophen (*CRX) 5-325 MG TABLET 1 TAB PO ×2 (07:28→20:36)
[2024-09-20 07:40] LABS: Anisocytosis 1+; Platelet Estimate Adequate (Adequate); Schistocytes None Seen
[2024-09-20 07:52] LABS: Glucose Point of Care 114 mg/dl (65-105)
[2024-09-20] MEDS: AMYLASE PO ×4 (08:37→20:38)
[2024-09-20] MEDS: METOPROLOL SUCCINATE EXT REL 50 MG TABCR PO (08:37)
[2024-09-20] MEDS: [UNRECOGNIZED DRUG - OTHER] PO ×4 (08:37→20:38)
[2024-09-20] MEDS: CYANOCOBALAMIN 1,000 MCG TABLET 1000 MCG PO (08:37)
[2024-09-20] MEDS: NIACIN SA 500 MG TABLET PO (08:37)
[2024-09-20] MEDS: LIPASE PO ×4 (08:37→20:38)
[2024-09-20] MEDS: PROTEASE PO ×4 (08:37→20:38)
[2024-09-20] MEDS: POTASSIUM CHLORIDE 20 MEQ ER TABLET PO (08:37)
[2024-09-20] MEDS: EMPAGLIFLOZIN 10 MG TABLET BY MOUTH (08:37)
[2024-09-20] MEDS: metFORMIN HCL 500 MG TABLET PO ×2 (08:37→16:59)
[2024-09-20] MEDS: IBUPROFEN IV 800 MG/200 ML 800 MG/200 ML BAG 400 MG IVPB (10:44)
[2024-09-20] MEDS: ALPRAZolam (*CRX) 0.5 MG TABLET PO (10:44)
[2024-09-20] MEDS: FERROUS SULFATE 325 MG TABLET DR BY MOUTH (11:38)
[2024-09-20 11:39] LABS: Glucose Point of Care 143 mg/dl (65-105)
[2024-09-20 13:52] VITALS: BP 102/50; PULSE 71; RESP 16; TEMP 36.6; O2SAT 97
--- NOTE | 2024-09-20 15:35 | PM.IMPN ---
Progress Note: A&P Assessment and Plan (1) Pelvic fracture: Qualifiers: Encounter type: initial encounter Fracture alignment: with stable disruption of pelvic ring Fracture type: closed Pelvic bone location: multiple parts Qualified Code(s): S32.810A - Multiple fractures of pelvis with stable disruption of pelvic ring, initial encounter for closed fracture Code(s): S32.9XXA - Fracture of unspecified parts of lumbosacral spine and pelvis, initial encounter for closed fracture Status: Acute Assessment and Plan: Left inferior and superior pubic rami fractures Patient evaluated by Dr. Fowler, non operative management Patient currently on bed rest with Jeffers catheter per orthopedics PT and OT to see Patient will likely require SNF placement for rehab 09/20/24: Pt does not want to go to SNF. To be determined still. She is working with therapy. We will continue to monitor. APPRECIATE ORTHOPEDICS PERMISSION AND ADVISEMENT ON STARTING ANTICOAGULATION. (2) Hypothyroidism: Code(s): E03.9 - Hypothyroidism, unspecified Status: Chronic Assessment and Plan: Continue home levothyroxine (3) Inflammatory arthritis: Code(s): M19.90 - Unspecified osteoarthritis, unspecified site Status: Chronic Assessment and Plan: Continue home medications, and no current inflamed joints (4) Type 2 diabetes mellitus with hyperglycemia: Qualifiers: Diabetes mellitus vermin exterminator insulin use: without vermin exterminator use Qualified Code(s): E11.65 - Type 2 diabetes mellitus with hyperglycemia Code(s): E11.65 - Type 2 diabetes mellitus with hyperglycemia Status: Chronic Assessment and Plan: Type 2 diabetes family to bring Synjardy A1c 5.9 09/20/24: Continue current meds. Monitor glucose and trend. (5) Essential (primary) hypertension: Code(s): I10 - Essential (primary) hypertension Status: Chronic Assessment and Plan: Continue home medications, blood pressure reviewed and no acute intervention necessary Time Spent With Patient Time with patient: 15 - 25 minutes Subjective Date/time seen: 09/20/24 15:35 Interval history: This pleasant 73 year old was examined at the bedside and found to be sitting up in no acute distress. She is here and being followed by Ortho after sustaining a fall and displaced fractures of her pubic rami. She is working with PT and feels as though she is improving. Pain is currently well controlled. No CP, dyspnea, leg swelling Review of Systems Review of Systems: All systems reviewed & are unremarkable except as noted in HPI and below Exam Narrative: GENERAL: Well-appearing, well-nourished, and in no acute distress. HEAD: Normocephalic, atraumatic. ENT: Mucous membranes moist. CHEST: Clear to auscultation. No respiratory distress. HEART: Regular rate and rhythm. Normal peripheral pulses. ABDOMEN: Soft, nontender, nondistended. EXTREMITIES: Limited range of motion left hip due to pain. Mainly uncomfortable at the inguinal crease. No deformity of the right lower extremity or upper extremities. SKIN: Warm, dry, no rash. Abrasions noted to the left knee left elbow left hand and a bruise to the right hand NEURO: Alert and oriented x3. PSYCH: Normal mood and affect. Objective Data Vital Signs Vital Signs: Vital Signs - 24 hr 09/19/24 22:00 09/20/24 06:00 09/20/24 08:00 Temperature 97.7 F 98.2 F Pulse Rate 87 82 Respiratory Rate 18 16 Blood Pressure 136/68 124/65 Pulse Oximetry 97 98 Oxygen Delivery Room Air 09/20/24 08:29 09/20/24 09:58 09/20/24 13:52 Temperature 97.8 F Pulse Rate 71 Respiratory Rate 16 Blood Pressure 102/50 L Pulse Oximetry 97 Oxygen Delivery Room Air Room Air Intake/Output Intake/Output: Intake & Output 09/17/24 09/18/24 09/19/24 09/20/24 23:59 23:59 23:59 23:59 Intake Total 1367 1056 Output Total 1900 2700 Balance -536 -2921 Meds/Results Medications: Active Medications Generic Name Dose Route Start Last Admin Trade Name Freq PRN Reason Stop Dose Admin Acetaminophen 650 mg 09/18/24 16:35 Acetaminophen 325 Mg Tablet PO Q4H PRN Mild Pain (1-3) or Fever Hydrocodone Bitart/Acetaminophen 1 tab 09/19/24 09:06 09/20/24 07:28 Hydrocodone/Acetaminophen (*Crx) 5-325 Mg Tablet PO 1 tab Q4H PRN Administration Pain Rated 4-6 Albuterol 2 puff 09/19/24 07:25 Albuterol Sulfate (*Sp) Aerosol 1 Puff INHALATION Q4H PRN shortness of breath or wheezing Alprazolam 0.5 mg 09/19/24 07:25 09/20/24 10:44 Alprazolam (*Crx) 0.5 Mg Tablet PO 0.5 mg TID PRN Administration anxiety Clobetasol Propionate 1 applic 09/19/24 09:00 Clobetasol Propionate 0.05% Oint 30 Gm TOPICAL BID PRN Rash Cyanocobalamin 1,000 mcg 09/19/24 09:00 09/20/24 08:37 Cyanocobalamin 1,000 Mcg Tablet PO 1,000 mcg QAM ELODIA Administration Dextrose 12.5 gm 09/19/24 07:28 Dextrose 50% 25 Gm/50 Ml Syringe IV PUSH PRN PRN Hypoglycemia Protocol Dicyclomine HCl 10 mg 09/19/24 07:25 Dicyclomine Hcl 10 Mg Capsule PO TID PRN abdominal pain Empagliflozin 10 mg 09/19/24 09:00 09/20/24 08:37 Empagliflozin 10 Mg Tablet BY MOUTH 10 mg QAM ELODIA Administration Fentanyl Citrate 25 mcg 09/18/24 16:35 09/19/24 05:40 Fentanyl Citrate Inj (*Crx) 100 Mcg/2 Ml Vial IV PUSH 25 mcg Q2H PRN Administration Pain Rated 7-10 Ferrous Sulfate 325 mg 09/19/24 12:00 09/20/24 11:38 Ferrous Sulfate [address] BY MOUTH 325 mg Q24H ELODIA Administration Glucagon 1 mg 09/19/24 07:28 Glucagon For Inj 1 Mg Vial IM PRN PRN Hypoglycemia Protocol Glucose 15 gm 09/19/24 07:28 Glucose Oral Gel 15 Gm Of Glucse In 37.5 Gm Tube PO PRN PRN Hypoglycemia Protocol Dextrose 1,000 mls @ 100 mls/hr 09/19/24 07:28 Dextrose 5% 1,000 Ml IVPB PRN PRN Hypoglycemia Protocol Ibuprofen 800 mg in 200 mls @ 400 mls/hr 09/19/24 09:06 09/20/24 11:14 Caldolor 800 Mg/200 Ml IVPB Infused Q8HR PRN Infusion Pain Rated 4-6 Insulin Aspart 2 - 5 units 09/19/24 08:00 09/20/24 11:37 Insulin Aspart (*Bkc) 100 Units/Ml SUB-Q Not Given [facility] Protocol Levothyroxine Sodium 75 mcg 09/19/24 07:25 09/20/24 06:46 Levothyroxine Sodium 75 Mcg Tablet PO 75 mcg DAILY@0630 ELODIA Administration Metformin HCl 500 mg 09/19/24 08:00 09/20/24 08:37 Metformin Hcl 500 Mg Tablet PO 500 mg BIDWM ELODIA Administration Metoprolol Succinate 50 mg 09/19/24 09:00 09/20/24 08:37 Metoprolol Succinate Ext Rel 50 Mg Tabcr PO 50 mg DAILY ELODIA Administration Niacin 500 mg 09/19/24 09:00 09/20/24 08:37 Niacin Sa 500 Mg Tablet PO 500 mg QAM ELODIA Administration Non-Formulary ( 3 each 09/19/24 21:00 09/20/24 11:56 Lipase/Protease/ PO 10/19/24 20:59 3 each Amylase 25,000 Unit- QID ELODIA Administration 79,000 Unit-105,000 Unit Oral C...) Ondansetron HCl 4 mg 09/18/24 16:35 Ondansetron Inj 4 Mg/2 Ml Vial IV PUSH Q4H PRN Nausea Pantoprazole Sodium 40 mg 09/19/24 21:00 09/19/24 21:49 Pantoprazole 40 Mg Tablet PO 40 mg HS ELODIA Administration Potassium Chloride 20 meq 09/19/24 09:00 09/20/24 08:37 Potassium Chloride 20 Meq Er Tablet PO 20 meq DAILY ELODIA Administration Trazodone HCl 50 mg 09/19/24 21:00 09/19/24 21:49 Trazodone Hcl 50 Mg Tablet PO 50 mg HS ELODIA Administration Radiology Results: ITS Impressions Hip/Pelvis X-Ray 09/18/24 16:18 IMPRESSION: 1. Mildly displaced left superior and inferior pubic rami fractures. Ribs w/Chest X-Ray 09/18/24 17:21 IMPRESSION: 1. No rib fracture or acute cardiopulmonary disease. Labs Labs: Laboratory Results - last 24 hr 09/19/24 09/19/24 09/20/24 16:29 22:11 06:25 WBC 7.3 RBC 3.67 L Hgb 9.6 L Hct 33.2 L MCV 90.5 MCH 26.2 MCHC 28.9 L RDW 17.8 H Plt Count 336 MPV 10.4 Immature Gran % (Auto) 0.3 Neut % (Auto) 75.3 H Lymph % (Auto) 11.0 L [place] % (Auto) 10.6 H Eos % (Auto) 2.5 Baso % (Auto) 0.3 Lymph # (Auto) 0.80 L [place] # (Auto) 0.8 H Eos # (Auto) 0.2 Baso # (Auto) 0.0 Abs Immat Gran (auto) 0.02 Absolute Neuts (auto) 5.5 Absolute Nucleated RBC 0.000 Nucleated RBC % 0.0 Platelet Estimate Adequate Anisocytosis 1+ Schistocytes None seen Sodium 135 L Potassium 4.1 Chloride 102 Carbon Dioxide 28 Anion Gap 5 BUN 12 Creatinine 0.60 L Estim Creat Clear Calc 60 Estimated GFR > 60 Glucose 124 H POC Capillary Glucose 135 H 136 H Calcium 8.8 Magnesium 1.9 Total Bilirubin 0.4 AST 19 ALT 12 Alkaline Phosphatase 102 Total Protein 7.0 Albumin 3.5 09/20/24 09/20/24 07:44 11:36 WBC RBC Hgb Hct MCV MCH MCHC RDW Plt Count MPV Immature Gran % (Auto) Neut % (Auto) Lymph % (Auto) [place] % (Auto) Eos % (Auto) Baso % (Auto) Lymph # (Auto) [place] # (Auto) Eos # (Auto) Baso # (Auto) Abs Immat Gran (auto) Absolute Neuts (auto) Absolute Nucleated RBC Nucleated RBC % Platelet Estimate Anisocytosis Schistocytes Sodium Potassium Chloride Carbon Dioxide Anion Gap BUN Creatinine Estim Creat Clear Calc Estimated GFR Glucose POC Capillary Glucose 114 H 143 H Calcium Magnesium Total Bilirubin AST ALT Alkaline Phosphatase Total Protein Albumin Quality VTE Prophylaxis VTE prophylaxis: mechanical ordered
[2024-09-20 16:49] LABS: Glucose Point of Care 118 mg/dl (65-105)
[2024-09-20] MEDS: PANTOPRAZOLE 40 MG TABLET PO (20:35)
[2024-09-20] MEDS: traZODone HCL 50 MG TABLET PO (20:35)
[2024-09-20 21:11] LABS: Glucose Point of Care 180 mg/dl (65-105)
[2024-09-20 21:22] VITALS: BP 116/62; PULSE 78; RESP 18; TEMP 36.4; O2SAT 100
[2024-09-21] MEDS: LEVOTHYROXINE SODIUM 75 MCG TABLET PO (05:50)
[2024-09-21] MEDS: HYDROcodone/acetaminophen (*CRX) 5-325 MG TABLET 1 TAB PO ×3 (05:50→14:52)
[2024-09-21 06:00] VITALS: BP 130/52; PULSE 83; RESP 16; TEMP 36.4; O2SAT 97
[2024-09-21 06:53] LABS: Basophils Percent Auto 0.4 % (0.2-1.2); Eosinophils Absolute Auto 0.4 K/mm3 (0-0.3); Eosinophils Percent Auto 6.5 % (0-4.4); Hemoglobin 8.9 g/dL (12.0-15.0); Immature Granulocyte Absolute 0.08 K/mm3 (0.00-0.031); Immature Granulocyte Percent A 1.4 % (0-0.5); Lymphocytes Absolute Auto 0.73 K/mm3 (0.9-3.2); Lymphocytes Percent Auto 12.9 % (18.3-44.2); Mean Corpuscular HGB Conc 28.7 g/dl (32-36); Mean Corpuscular Hemoglobin 25.5 pg (26-34); Mean Corpuscular Volume 88.8 fl (80-100); Monocytes Absolute Auto 0.8 K/mm3 (0.1-0.6); Monocytes Percent Auto 14.1 % (2.6-8.5); Neutrophils Absolute Auto 3.7 K/mm3 (1.3-6.7); Neutrophils Percent Auto 64.7 % (45.5-73.1); Platelet Count Result 310 k/mm3 (150-375); Red Blood Count 3.49 M/mm3 (4.2-5.4); Red Cell Distribution Width 17.5 % (11.5-14.5); White Blood Count 5.7 K/mm3 (4.5-10.0)
[2024-09-21 07:07] LABS: Alanine Aminotransferase 10 U/L (6-35); Albumin Level 3.2 g/dL (3.5-5.1); Alkaline Phosphatase 89 U/L (38-126); Anion Gap 4 mmol/L (4-12); Aspartate Amino Transferase 16 U/L (14-36); Bilirubin,Total 0.3 mg/dL (0.2-1.3); Blood Urea Nitrogen 17 mg/dL (7-17); Calcium 8.5 mg/dL (8.4-10.2); Carbon Dioxide 28 mmol/L (22-30); Chloride 102 mmol/L (98-107); Estimated CRCL calculation 46 ml/min; Estimated Glomerular Filt Rate > 60; Glucose 136 mg/dL (65-110); Magnesium 1.9 mg/dL (1.6-2.3); Potassium 4.2 mmol/L (3.4-5.0); Sodium 134 mmol/L (137-145)
[2024-09-21 07:27] LABS: Glucose Point of Care 141 mg/dl (65-105)
[2024-09-21 07:27] LABS: Anisocytosis 1+; Platelet Estimate Adequate (Adequate); Schistocytes None Seen
[2024-09-21] MEDS: CYANOCOBALAMIN 1,000 MCG TABLET 1000 MCG PO (08:57)
[2024-09-21 08:58] VITALS: PULSE 83
[2024-09-21] MEDS: METOPROLOL SUCCINATE EXT REL 50 MG TABCR PO (08:58)
[2024-09-21] MEDS: POTASSIUM CHLORIDE 20 MEQ ER TABLET PO (08:58)
[2024-09-21] MEDS: metFORMIN HCL 500 MG TABLET PO ×2 (08:58→17:29)
[2024-09-21] MEDS: EMPAGLIFLOZIN 10 MG TABLET BY MOUTH (08:58)
[2024-09-21] MEDS: AMYLASE PO ×3 (08:59→17:29)
[2024-09-21] MEDS: NIACIN SA 500 MG TABLET PO (08:59)
[2024-09-21] MEDS: PROTEASE PO ×3 (08:59→17:29)
[2024-09-21] MEDS: [UNRECOGNIZED DRUG - OTHER] PO ×3 (08:59→17:29)
[2024-09-21] MEDS: LIPASE PO ×3 (08:59→17:29)
[2024-09-21 11:33] LABS: Glucose Point of Care 189 mg/dl (65-105)
[2024-09-21] MEDS: FERROUS SULFATE 325 MG TABLET DR BY MOUTH (11:59)
--- NOTE | 2024-09-21 12:19 | P.PNIM_ITS ---
Progress Note: A&P Assessment and Plan (1) Pelvic fracture: Qualifiers: Encounter type: initial encounter Fracture alignment: with stable disruption of pelvic ring Fracture type: closed Pelvic bone location: multiple parts Qualified Code(s): S32.810A - Multiple fractures of pelvis with stable disruption of pelvic ring, initial encounter for closed fracture Code(s): S32.9XXA - Fracture of unspecified parts of lumbosacral spine and pelvis, initial encounter for closed fracture Status: Acute Assessment and Plan: Left inferior and superior pubic rami fractures Patient evaluated by Dr. Fowler, non operative management Patient currently on bed rest with Jeffers catheter per orthopedics PT and OT to see Patient will likely require SNF placement for rehab 09/20/24: Pt does not want to go to SNF. To be determined still. She is working with therapy. We will continue to monitor. APPRECIATE ORTHOPEDICS PERMISSION AND ADVISEMENT ON STARTING ANTICOAGULATION. 09/21/24: Still no word from Ortho on anticoagulation, so they are messaged and I am awaiting to hear back. Continue pain meds as ordered prn. Continue PT/OT therapies. Currently awaiting Rehab placement. Pt was ordered an incentive spirometer to encourage deep breaths as she mentioned it was painful upon inspiration due to the bruised ribs. 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 Monitor glucose and trend. 09/21/24: Fasting glucose today is 136. Continue current regimen. (5) Essential (primary) hypertension: Code(s): I10 - Essential (primary) hypertension Status: Chronic Assessment and Plan: Continue home medications, blood pressure reviewed and no acute intervention necessary Subjective Date/time seen: 09/21/24 1115 Interval history: This pt was examined today at the bedside, sitting up in the chair immediately after physical therapy. She does complain of some pain in the hip today. She also states it is painful when she takes a deep breath, but no change in VS. No radiological evidence of rib fracture. She has chosen a non-operative course of management and is currently attempting to find placement. She has no new complaints to speak of. Review of Systems Review of Systems: All systems reviewed & are unremarkable except as noted in HPI and below Exam Narrative: GENERAL: Well-appearing, well-nourished, and in no acute distress. HEAD: Normocephalic, atraumatic. ENT: Mucous membranes moist. CHEST: Clear to auscultation. No respiratory distress. HEART: Regular rate and rhythm. Normal peripheral pulses. ABDOMEN: Soft, nontender, nondistended. EXTREMITIES: Limited range of motion left hip due to pain. Mainly uncomfortable at the inguinal crease. No deformity of the right lower extremity or upper extremities. SKIN: Warm, dry, no rash. Abrasions noted to the left knee left elbow left hand and a bruise to the right hand NEURO: Alert and oriented x3. PSYCH: Normal mood and affect. Objective Data Vital Signs Vital Signs: Vital Signs - 24 hr 09/20/24 13:52 09/20/24 20:00 09/20/24 21:22 Temperature 97.8 F 97.6 F Pulse Rate 71 78 Respiratory Rate 16 18 Blood Pressure 102/50 L 116/62 Pulse Oximetry 97 100 Oxygen Delivery Room Air 09/21/24 06:00 09/21/24 08:58 09/21/24 09:00 Temperature 97.6 F Pulse Rate 83 83 Respiratory Rate 16 Blood Pressure 130/52 L Pulse Oximetry 97 Oxygen Delivery Room Air Intake/Output Intake/Output: Intake & Output 09/18/24 09/19/24 09/20/24 09/21/24 23:59 23:59 23:59 23:59 Intake Total 1367 1976 740 Output Total 8147 [id number] [facility] [phone] Meds/Results Medications: Active Medications Generic Name Dose Route Start Last Admin Trade Name Freq PRN Reason Stop Dose Admin Acetaminophen 650 mg 09/18/24 16:35 Acetaminophen 325 Mg Tablet PO Q4H PRN Mild Pain (1-3) or Fever Hydrocodone Bitart/Acetaminophen 1 tab 09/19/24 09:06 09/21/24 10:13 Hydrocodone/Acetaminophen (*Crx) 5-325 Mg Tablet PO 1 tab Q4H PRN Administration Pain Rated 4-6 Albuterol 2 puff 09/19/24 07:25 Albuterol Sulfate (*Sp) Aerosol 1 Puff INHALATION Q4H PRN shortness of breath or wheezing Alprazolam 0.5 mg 09/19/24 07:25 09/20/24 10:44 Alprazolam (*Crx) 0.5 Mg Tablet PO 0.5 mg TID PRN Administration anxiety Clobetasol Propionate 1 applic 09/19/24 09:00 Clobetasol Propionate 0.05% Oint 30 Gm TOPICAL BID PRN Rash Cyanocobalamin 1,000 mcg 09/19/24 09:00 09/21/24 08:57 Cyanocobalamin 1,000 Mcg Tablet PO 1,000 mcg QAM ELODIA Administration Dextrose 12.5 gm 09/19/24 07:28 Dextrose 50% 25 Gm/50 Ml Syringe IV PUSH PRN PRN Hypoglycemia Protocol Dicyclomine HCl 10 mg 09/19/24 07:25 Dicyclomine Hcl 10 Mg Capsule PO TID PRN abdominal pain Empagliflozin 10 mg 09/19/24 09:00 09/21/24 08:58 Empagliflozin 10 Mg Tablet BY MOUTH 10 mg QAM ELODIA Administration Fentanyl Citrate 25 mcg 09/18/24 16:35 09/19/24 05:40 Fentanyl Citrate Inj (*Crx) 100 Mcg/2 Ml Vial IV PUSH 25 mcg Q2H PRN Administration Pain Rated 7-10 Ferrous Sulfate 325 mg 09/19/24 12:00 09/21/24 11:59 Ferrous Sulfate [address] BY MOUTH 325 mg Q24H ELODIA Administration Glucagon 1 mg 09/19/24 07:28 Glucagon For Inj 1 Mg Vial IM PRN PRN Hypoglycemia Protocol Glucose 15 gm 09/19/24 07:28 Glucose Oral Gel 15 Gm Of Glucse In 37.5 Gm Tube PO PRN PRN Hypoglycemia Protocol Dextrose 1,000 mls @ 100 mls/hr 09/19/24 07:28 Dextrose 5% 1,000 Ml IVPB PRN PRN Hypoglycemia Protocol Ibuprofen 800 mg in 200 mls @ 400 mls/hr 09/19/24 09:06 09/20/24 11:14 Caldolor 800 Mg/200 Ml IVPB Infused Q8HR PRN Infusion Pain Rated 4-6 Insulin Aspart 2 - 5 units 09/19/24 08:00 09/21/24 11:36 Insulin Aspart (*Bkc) 100 Units/Ml SUB-Q Not Given TIDWM [facility] Protocol Levothyroxine Sodium 75 mcg 09/19/24 07:25 09/21/24 05:50 Levothyroxine Sodium 75 Mcg Tablet PO 75 mcg DAILY@0630 ELODIA Administration Metformin HCl 500 mg 09/19/24 08:00 09/21/24 08:58 Metformin Hcl 500 Mg Tablet PO 500 mg BIDWM ELODIA Administration Metoprolol Succinate 50 mg 09/19/24 09:00 09/21/24 08:58 Metoprolol Succinate Ext Rel 50 Mg Tabcr PO 50 mg DAILY ELODIA Administration Niacin 500 mg 09/19/24 09:00 09/21/24 08:59 Niacin Sa 500 Mg Tablet PO 500 mg QAM ELODIA Administration Non-Formulary ( 3 each 09/19/24 21:00 09/21/24 12:00 Lipase/Protease/ PO 10/19/24 20:59 3 each Amylase 25,000 Unit- QID ELODIA Administration 79,000 Unit-105,000 Unit Oral C...) Ondansetron HCl 4 mg 09/18/24 16:35 Ondansetron Inj 4 Mg/2 Ml Vial IV PUSH Q4H PRN Nausea Pantoprazole Sodium 40 mg 09/19/24 21:00 09/20/24 20:35 Pantoprazole 40 Mg Tablet PO 40 mg HS ELODIA Administration Potassium Chloride 20 meq 09/19/24 09:00 09/21/24 08:58 Potassium Chloride 20 Meq Er Tablet PO 20 meq DAILY ELODIA Administration Trazodone HCl 50 mg 09/19/24 21:00 09/20/24 20:35 Trazodone Hcl 50 Mg Tablet PO 50 mg HS ELODIA Administration Radiology Results: ITS Impressions Hip/Pelvis X-Ray 09/18/24 16:18 IMPRESSION: 1. Mildly displaced left superior and inferior pubic rami fractures. Ribs w/Chest X-Ray 09/18/24 17:21 IMPRESSION: 1. No rib fracture or acute cardiopulmonary disease. Labs Labs: Laboratory Results - last 24 hr 09/20/24 09/20/24 09/21/24 16:41 20:42 06:36 WBC 5.7 RBC 3.49 L Hgb 8.9 L Hct 31.0 L MCV 88.8 MCH 25.5 L MCHC 28.7 L RDW 17.5 H Plt Count 310 MPV 10.0 Immature Gran % (Auto) 1.4 H Neut % (Auto) 64.7 Lymph % (Auto) 12.9 L [place] % (Auto) 14.1 H Eos % (Auto) 6.5 H Baso % (Auto) 0.4 Lymph # (Auto) 0.73 L [place] # (Auto) 0.8 H Eos # (Auto) 0.4 H Baso # (Auto) 0.0 Abs Immat Gran (auto) 0.08 H Absolute Neuts (auto) 3.7 Absolute Nucleated RBC 0.000 Nucleated RBC % 0.0 Platelet Estimate Adequate Anisocytosis 1+ Schistocytes None seen Sodium 134 L Potassium 4.2 Chloride 102 Carbon Dioxide 28 Anion Gap 4 BUN 17 Creatinine 0.80 Estim Creat Clear Calc 46 Estimated GFR > 60 Glucose 136 H POC Capillary Glucose 118 H 180 H Calcium 8.5 Magnesium 1.9 Total Bilirubin 0.3 AST 16 ALT 10 Alkaline Phosphatase 89 Total Protein 6.0 L Albumin 3.2 L 09/21/24 09/21/24 07:18 11:31 WBC RBC Hgb Hct MCV MCH MCHC RDW Plt Count MPV Immature Gran % (Auto) Neut % (Auto) Lymph % (Auto) [place] % (Auto) Eos % (Auto) Baso % (Auto) Lymph # (Auto) [place] # (Auto) Eos # (Auto) Baso # (Auto) Abs Immat Gran (auto) Absolute Neuts (auto) Absolute Nucleated RBC Nucleated RBC % Platelet Estimate Anisocytosis Schistocytes Sodium Potassium Chloride Carbon Dioxide Anion Gap BUN Creatinine Estim Creat Clear Calc Estimated GFR Glucose POC Capillary Glucose 141 H 189 H Calcium Magnesium Total Bilirubin AST ALT Alkaline Phosphatase Total Protein Albumin Quality VTE Prophylaxis VTE prophylaxis: mechanical ordered
--- NOTE | 2024-09-21 12:59 | PM.PNORT ---
Progress Note: A&P Assessment and Plan (1) Pelvic fracture: Qualifiers: Encounter type: initial encounter Fracture alignment: with stable disruption of pelvic ring Fracture type: closed Pelvic bone location: multiple parts Qualified Code(s): S32.810A - Multiple fractures of pelvis with stable disruption of pelvic ring, initial encounter for closed fracture Code(s): S32.9XXA - Fracture of unspecified parts of lumbosacral spine and pelvis, initial encounter for closed fracture Status: Acute Assessment and Plan: Radiographs on admission reveal mildly displaced left superior and inferior pubic rami fractures. Conservative and operative treatment options reviewed. Recommended conservative treatment with immobilization, ice, compression and elevation. Pain control. PT/OT with weight-bearing as tolerated. Discussed anticoagulation with the patient today. She adamantly refuses and states she will do all of the necessary exercises to prevent blood clotting. Discussed risks. Patient verbalized understanding and continues to refuse. Dispo: Awaiting placement currently. Follow up in 6-7 weeks in the outpatient orthopedic clinic for repeat radiographs. Will arrange appointment. Will follow peripherally in the interim. Please contact with us any further concerns or change in orthopedic condition. Subjective Subjective Date/Time Seen: 09/21/24 12:59 Interval history: Patient sitting up in chair at time of exam. Pain well controlled. Reports improvement in overall mobility. Review of Systems Constitutional: Constitutional: Denies fever(s) Eyes: Eyes: Denies blurry vision ENT: Reports Normal hearing present Cardiovascular: Cardiovascular: Denies chest pain and Denies dyspnea Respiratory: Respiratory: Denies dyspnea and Denies wheezing Gastrointestinal: Gastrointestinal: Denies abdominal pain Genitourinary: Genitourinary: Denies urinary urgency Musculoskeletal: Musculoskeletal: Reports as per HPI and Denies numbness Integumentary/Breasts: Skin/Breast: Denies changing lesions and Denies sores Neurologic: Reports Normal hearing present, Denies behavioral changes, Denies confusion, Denies numbness and Denies convulsions Psychiatric: Psychiatric: Denies behavioral changes, Denies confusion and Denies hallucinations Endocrine: Endocrine: Denies heat intolerance Hematologic/Lymphatic: Hematologic/Lymphatic: Denies easy bleeding Allergic/Immunologic: Allergic/Immunologic: Denies wheezing Exam Const: General: No confusion Orientation/consciousness: No confusion HENMT: Head: normal to inspection, normocephalic and atraumatic Eyes: Conjunctivae: conjunctivae normal Sclera: sclerae normal Neck: Neck: supple and nontender Chest: Chest palpation & inspection: normal inspection of the chest Resp: Effort & Inspection: normal respiratory effort and no audible wheezes Cardio: Rate: regular rate Rhythm: regular rhythm : General: Yes deferred Skin: General skin exam: no rashes or lesions noted Neuro: General: No confusion Extrem: General: capillary refill normal Right upper extremity: normal to inspection Left upper extremity: normal to inspection Right lower extremity: normal to inspection, hip/thigh Details: normal to inspection and normal ROM; no tenderness and no swelling, knee Details: no tenderness and no swelling, ankle Details: normal ROM (Able to flex and extend the ankle) and foot Details: vascular exam Details: dorsalis pedis pulse present and normal capillary refill, tendon exam (Moves all toes) and motor-sensory exam Details: light-touch normal Location: in all toes Left lower extremity: hip/thigh Details: tenderness Location: of the hip Location: laterally and anteriorly, swelling Location: of the hip and abnormal ROM Details: pain with passive ROM (Full motion deferred secondary to fracture) Details: with flexion, with internal rotation and with external rotation, ankle (no calf tenderness) Details: normal ROM (Able to flex/ extend ankle) and foot Details: toes with normal ROM (Moves all toes), vascular exam Details: dorsalis pedis pulse present and normal capillary refill and motor-sensory exam light-touch normal in all toes; no tenderness Psych: Affect: normal affect Objective Data Vital Signs Vital Signs: Vital Signs - 24 hr 09/20/24 13:52 09/20/24 20:00 09/20/24 21:22 Temperature 36.6 C 36.4 C Pulse Rate 71 78 Respiratory Rate 16 18 Blood Pressure 102/50 L 116/62 Pulse Oximetry 97 100 Oxygen Delivery Room Air 09/21/24 06:00 09/21/24 08:58 09/21/24 09:00 Temperature 36.4 C Pulse Rate 83 83 Respiratory Rate 16 Blood Pressure 130/52 L Pulse Oximetry 97 Oxygen Delivery Room Air Intake/Output Intake/Output: Intake & Output 09/18/24 09/19/24 09/20/24 09/21/24 23:59 23:59 23:59 23:59 Intake Total 1367 1976 740 Output Total 1900 4050 2350 Balance [phone] Meds/Results Medications: Active Medications Generic Name Dose Route Start Last Admin Trade Name Freq PRN Reason Stop Dose Admin Acetaminophen 650 mg 09/18/24 16:35 Acetaminophen 325 Mg Tablet PO Q4H PRN Mild Pain (1-3) or Fever Hydrocodone Bitart/Acetaminophen 1 tab 09/19/24 09:06 09/21/24 10:13 Hydrocodone/Acetaminophen (*Crx) 5-325 Mg Tablet PO 1 tab Q4H PRN Administration Pain Rated 4-6 Albuterol 2 puff 09/19/24 07:25 Albuterol Sulfate (*Sp) Aerosol 1 Puff INHALATION Q4H PRN shortness of breath or wheezing Alprazolam 0.5 mg 09/19/24 07:25 09/20/24 10:44 Alprazolam (*Crx) 0.5 Mg Tablet PO 0.5 mg TID PRN Administration anxiety Clobetasol Propionate 1 applic 09/19/24 09:00 Clobetasol Propionate 0.05% Oint 30 Gm TOPICAL BID PRN Rash Cyanocobalamin 1,000 mcg 09/19/24 09:00 09/21/24 08:57 Cyanocobalamin 1,000 Mcg Tablet PO 1,000 mcg QAM ELODIA Administration Dextrose 12.5 gm 09/19/24 07:28 Dextrose 50% 25 Gm/50 Ml Syringe IV PUSH PRN PRN Hypoglycemia Protocol Dicyclomine HCl 10 mg 09/19/24 07:25 Dicyclomine Hcl 10 Mg Capsule PO TID PRN abdominal pain Empagliflozin 10 mg 09/19/24 09:00 09/21/24 08:58 Empagliflozin 10 Mg Tablet BY MOUTH 10 mg QAM ELODIA Administration Fentanyl Citrate 25 mcg 09/18/24 16:35 09/19/24 05:40 Fentanyl Citrate Inj (*Crx) 100 Mcg/2 Ml Vial IV PUSH 25 mcg Q2H PRN Administration Pain Rated 7-10 Ferrous Sulfate 325 mg 09/19/24 12:00 09/21/24 11:59 Ferrous Sulfate [address] BY MOUTH 325 mg Q24H ELODIA Administration Glucagon 1 mg 09/19/24 07:28 Glucagon For Inj 1 Mg Vial IM PRN PRN Hypoglycemia Protocol Glucose 15 gm 09/19/24 07:28 Glucose Oral Gel 15 Gm Of Glucse In 37.5 Gm Tube PO PRN PRN Hypoglycemia Protocol Dextrose 1,000 mls @ 100 mls/hr 09/19/24 07:28 Dextrose 5% 1,000 Ml IVPB PRN PRN Hypoglycemia Protocol Ibuprofen 800 mg in 200 mls @ 400 mls/hr 09/19/24 09:06 09/20/24 11:14 Caldolor 800 Mg/200 Ml IVPB Infused Q8HR PRN Infusion Pain Rated 4-6 Insulin Aspart 2 - 5 units 09/19/24 08:00 09/21/24 11:36 Insulin Aspart (*Bkc) 100 Units/Ml SUB-Q Not Given TIDWM [facility] Protocol Levothyroxine Sodium 75 mcg 09/19/24 07:25 09/21/24 05:50 Levothyroxine Sodium 75 Mcg Tablet PO 75 mcg DAILY@0630 ELODIA Administration Metformin HCl 500 mg 09/19/24 08:00 09/21/24 08:58 Metformin Hcl 500 Mg Tablet PO 500 mg BIDWM ELODIA Administration Metoprolol Succinate 50 mg 09/19/24 09:00 09/21/24 08:58 Metoprolol Succinate Ext Rel 50 Mg Tabcr PO 50 mg DAILY ELODIA Administration Niacin 500 mg 09/19/24 09:00 09/21/24 08:59 Niacin Sa 500 Mg Tablet PO 500 mg QAM ELODIA Administration Non-Formulary ( 3 each 09/19/24 21:00 09/21/24 12:00 Lipase/Protease/ PO 10/19/24 20:59 3 each Amylase 25,000 Unit- QID ELODIA Administration 79,000 Unit-105,000 Unit Oral C...) Ondansetron HCl 4 mg 09/18/24 16:35 Ondansetron Inj 4 Mg/2 Ml Vial IV PUSH Q4H PRN Nausea Pantoprazole Sodium 40 mg 09/19/24 21:00 09/20/24 20:35 Pantoprazole 40 Mg Tablet PO 40 mg HS ELODIA Administration Potassium Chloride 20 meq 09/19/24 09:00 09/21/24 08:58 Potassium Chloride 20 Meq Er Tablet PO 20 meq DAILY ELODIA Administration Trazodone HCl 50 mg 09/19/24 21:00 09/20/24 20:35 Trazodone Hcl 50 Mg Tablet PO 50 mg HS ELODIA Administration Radiology Results: ITS Impressions Hip/Pelvis X-Ray 09/18/24 16:18 IMPRESSION: 1. Mildly displaced left superior and inferior pubic rami fractures. Ribs w/Chest X-Ray 09/18/24 17:21 IMPRESSION: 1. No rib fracture or acute cardiopulmonary disease. Labs Labs: Laboratory Results - last 24 hr 09/20/24 09/20/24 09/21/24 16:41 20:42 06:36 WBC 5.7 RBC 3.49 L Hgb 8.9 L Hct 31.0 L MCV 88.8 MCH 25.5 L MCHC 28.7 L RDW 17.5 H Plt Count 310 MPV 10.0 Immature Gran % (Auto) 1.4 H Neut % (Auto) 64.7 Lymph % (Auto) 12.9 L [place] % (Auto) 14.1 H Eos % (Auto) 6.5 H Baso % (Auto) 0.4 Lymph # (Auto) 0.73 L [place] # (Auto) 0.8 H Eos # (Auto) 0.4 H Baso # (Auto) 0.0 Abs Immat Gran (auto) 0.08 H Absolute Neuts (auto) 3.7 Absolute Nucleated RBC 0.000 Nucleated RBC % 0.0 Platelet Estimate Adequate Anisocytosis 1+ Schistocytes None seen Sodium 134 L Potassium 4.2 Chloride 102 Carbon Dioxide 28 Anion Gap 4 BUN 17 Creatinine 0.80 Estim Creat Clear Calc 46 Estimated GFR > 60 Glucose 136 H POC Capillary Glucose 118 H 180 H Calcium 8.5 Magnesium 1.9 Total Bilirubin 0.3 AST 16 ALT 10 Alkaline Phosphatase 89 Total Protein 6.0 L Albumin 3.2 L 09/21/24 09/21/24 07:18 11:31 WBC RBC Hgb Hct MCV MCH MCHC RDW Plt Count MPV Immature Gran % (Auto) Neut % (Auto) Lymph % (Auto) [place] % (Auto) Eos % (Auto) Baso % (Auto) Lymph # (Auto) [place] # (Auto) Eos # (Auto) Baso # (Auto) Abs Immat Gran (auto) Absolute Neuts (auto) Absolute Nucleated RBC Nucleated RBC % Platelet Estimate Anisocytosis Schistocytes Sodium Potassium Chloride Carbon Dioxide Anion Gap BUN Creatinine Estim Creat Clear Calc Estimated GFR Glucose POC Capillary Glucose 141 H 189 H Calcium Magnesium Total Bilirubin AST ALT Alkaline Phosphatase Total Protein Albumin
[2024-09-21 14:00] VITALS: BP 107/64; PULSE 83; RESP 16; TEMP 36.8; O2SAT 98
--- NOTE | 2024-09-21 14:39 | PM.DS ---
DS: Admitting Diagnosis Discharge Date 09/21/24 Admitting Diagnosis Pelvic Fracture DS: Discharge Diagnosis Discharge Diagnosis (1) Pelvic fracture: Qualifiers: Encounter type: initial encounter Fracture alignment: with stable disruption of pelvic ring Fracture type: closed Pelvic bone location: multiple parts Qualified Code(s): S32.810A - Multiple fractures of pelvis with stable disruption of pelvic ring, initial encounter for closed fracture Code(s): S32.9XXA - Fracture of unspecified parts of lumbosacral spine and pelvis, initial encounter for closed fracture Status: Acute Assessment and Plan: Left inferior and superior pubic rami fractures Patient evaluated by Dr. Fowler, non operative management Patient currently on bed rest with Jeffers catheter per orthopedics PT and OT to see Patient will likely require SNF placement for rehab 09/20/24: Pt does not want to go to SNF. To be determined still. She is working with therapy. We will continue to monitor. APPRECIATE ORTHOPEDICS PERMISSION AND ADVISEMENT ON STARTING ANTICOAGULATION. 09/21/24: Still no word from Ortho on anticoagulation, so they are messaged and I am awaiting to hear back. Continue pain meds as ordered prn. Continue PT/OT therapies. Currently awaiting Rehab placement. Pt was ordered an incentive spirometer to encourage deep breaths as she mentioned it was painful upon inspiration due to the bruised ribs. 09/21/24: 1440 - Accepted for placement at rehab today. (2) Hypothyroidism: Code(s): E03.9 - Hypothyroidism, unspecified Status: Chronic Assessment and Plan: Continue home levothyroxine (3) Inflammatory arthritis: Code(s): M19.90 - Unspecified osteoarthritis, unspecified site Status: Chronic Assessment and Plan: Continue home medications, and no current inflamed joints (4) Type 2 diabetes mellitus with hyperglycemia: Qualifiers: Diabetes mellitus manifold operator insulin use: without longterm use Qualified Code(s): E11.65 - Type 2 diabetes mellitus with hyperglycemia Code(s): E11.65 - Type 2 diabetes mellitus with hyperglycemia Status: Chronic Assessment and Plan: Type 2 diabetes family to bring Synjardy A1c 5.9 09/20/24: Continue current meds. Monitor glucose and trend. 09/21/24: Fasting glucose today is 136. Continue current regimen. (5) Essential (primary) hypertension: Code(s): I10 - Essential (primary) hypertension Status: Chronic Assessment and Plan: Continue home medications, blood pressure reviewed and no acute intervention necessary DS: Summary Hospital Course Reason for hospitalization: Pelvic fracture Hospital Course: This is a 73-year-old female patient who reports that she was out of state when she tried to walk down a hill and began trying to run to keep from falling but ended up falling landing on her left pelvis and left ribs and left arm. Despite heavy clothing she had some scrapes to her left arm as well as felt a crack in her left pelvis. Patient had severe pain was not able to ambulate fully on her own. Her could not drive at nighttime so he helped her to bed and the next day drove back here from [facility]. Patient found to have mildly displaced left superior and inferior pubic rami fractures. Patient was evaluated by Orthopedics and decision made for non operative management. Pt was evaluated by PT and OT who recommended rehab/SNF. Pt has been compliant and after talking with her today is agreeable to starting anticoagulation with full strength aspirin at 325 mg daily for 4 weeks. She is stable for discharge to rehab at this time and I believe has a good improvement potential for recovery. Status at Discharge Cognitive/behavioral status at discharge: At baseline Functional status at discharge: uses cane/walker Overall status at discharge: patient is progressing back to baseline Time Spent with Patient Time attestation: Total time spent providing and/or coordinating discharge services: Time spent: Greater than 30 minutes Specific discharge activities: follow up, medications Exam Narrative: GENERAL: Well-appearing, well-nourished, and in no acute distress. HEAD: Normocephalic, atraumatic. ENT: Mucous membranes moist. CHEST: Clear to auscultation. No respiratory distress. HEART: Regular rate and rhythm. Normal peripheral pulses. ABDOMEN: Soft, nontender, nondistended. EXTREMITIES: Limited range of motion left hip due to pain. Mainly uncomfortable at the inguinal crease. No deformity of the right lower extremity or upper extremities. SKIN: Warm, dry, no rash. Abrasions noted to the left knee left elbow left hand and a bruise to the right hand NEURO: Alert and oriented x3. PSYCH: Normal mood and affect. DS: Data Data Completed and Pending Completed studies during hospitalization: ITS Impressions Hip/Pelvis X-Ray 09/18/24 16:18 IMPRESSION: 1. Mildly displaced left superior and inferior pubic rami fractures. Ribs w/Chest X-Ray 09/18/24 17:21 IMPRESSION: 1. No rib fracture or acute cardiopulmonary disease. Labs on day of discharge: Labs from last 24 hours 09/21/24 09/21/24 09/21/24 11:31 07:18 06:36 WBC 5.7 RBC 3.49 L Hgb 8.9 L Hct 31.0 L MCV 88.8 MCH 25.5 L MCHC 28.7 L RDW 17.5 H Plt Count 310 MPV 10.0 Immature Gran % (Auto) 1.4 H Neut % (Auto) 64.7 Lymph % (Auto) 12.9 L Citrus % (Auto) 14.1 H Eos % (Auto) 6.5 H Baso % (Auto) 0.4 Lymph # (Auto) 0.73 L Citrus # (Auto) 0.8 H Eos # (Auto) 0.4 H Baso # (Auto) 0.0 Abs Immat Gran (auto) 0.08 H Absolute Neuts (auto) 3.7 Absolute Nucleated RBC 0.000 Nucleated RBC % 0.0 Platelet Estimate Adequate Anisocytosis 1+ Schistocytes None seen Sodium 134 L Potassium 4.2 Chloride 102 Carbon Dioxide 28 Anion Gap 4 BUN 17 Creatinine 0.80 Estim Creat Clear Calc 46 Estimated GFR > 60 Glucose 136 H POC Capillary Glucose 189 H 141 H Calcium 8.5 Magnesium 1.9 Total Bilirubin 0.3 AST 16 ALT 10 Alkaline Phosphatase 89 Total Protein 6.0 L Albumin 3.2 L 09/20/24 09/20/24 20:42 16:41 WBC RBC Hgb Hct MCV MCH MCHC RDW Plt Count MPV Immature Gran % (Auto) Neut % (Auto) Lymph % (Auto) Citrus % (Auto) Eos % (Auto) Baso % (Auto) Lymph # (Auto) Citrus # (Auto) Eos # (Auto) Baso # (Auto) Abs Immat Gran (auto) Absolute Neuts (auto) Absolute Nucleated RBC Nucleated RBC % Platelet Estimate Anisocytosis Schistocytes Sodium Potassium Chloride Carbon Dioxide Anion Gap BUN Creatinine Estim Creat Clear Calc Estimated GFR Glucose POC Capillary Glucose 180 H 118 H Calcium Magnesium Total Bilirubin AST ALT Alkaline Phosphatase Total Protein Albumin Discharge Plan Discharge Attending physician on discharge: Randi Salazar Consulting providers: Joel White Discharging Clinician: Randi Salazar Anticipated Discharge Date/Time: 09/21/24 14:44 Patient Disposition: Inpatient Rehab Facility Activity: may shower, no driving and follow weight bearing status Diet: as tolerated Wound Care Instructions: follow printed instructions Discharge Instructions: Orthopedic Recommendations Dr. Joel White/Shilpa Bourne NP [phone] Continue PT/OT. Weight bearing as tolerated. Pain control. Ice. Compression stockings. Incentive spirometry. Follow up appointment to be scheduled. See your PCP also within one week. If any new or worsening symptoms, return to the ER. Patient Instructions: Pelvic Fracture (DC) Patient Language: German Stand Alone Forms: General Discharge Information Follow-up/Referrals: Joel White MD [Physician] - 11/01/24 8:30 am Discharge Medications: New hydrocodone-acetaminophen 5-325 mg Tablet 1 tablet PO Q4H PRN (Reason: Pain Rated 4-6) Qty: 30 0RF aspirin 325 mg Tablet,Delayed Release (Dr/Ec) 325 mg PO QAM 30 Days Qty: 30 0RF insulin aspart U-100 [Novolog U-100 Insulin aspart] 100 unit/mL Solution 2 - 5 unit subcut TIDWM Qty: 10 0RF Protocol: Insulin Corrective Low-Dose Condition: glucose < 70 mg/dl Dose/Route: Follow Hypoglycemia Order Condition: glucose 70-200 mg/dl Dose/Route: No additional insulin Condition: glucose 201-250 mg/dl Dose/Route: 2 units sub-Q Condition: glucose 251-300 mg/dl Dose/Route: 3 units sub-Q Condition: glucose 301-350 mg/dl Dose/Route: 4 units sub-Q Condition: glucose 351-400 mg/dl Dose/Route: 5 units sub-Q Condition: glucose > 400 mg/dl Dose/Route: Call Protocol Text: *No Correction Dose at Bedtime* Continued niacin 500 mg tablet 500 mg PO DAILY trazodone 50 mg tablet 50 mg PO .qhs Qty: 30 2RF dicyclomine 10 mg capsule 10 mg PO TID PRN (Reason: abdominal pain) Qty: 60 0RF albuterol sulfate [ProAir HFA] 90 mcg/actuation HFA aerosol inhaler 2 inh inhalation Q4H PRN (Reason: shortness of breath or wheezing) Qty: 6.7 3RF cyanocobalamin (vitamin B-12) [Vitamin B-12] 1,000 mcg Tablet 1,000 mcg PO QAM Qty: 100 0RF potassium chloride [K-Tab] 20 mEq tablet extended release 20 meq PO DAILY Qty: 14 0RF ferrous sulfate 325 mg (65 mg iron) tablet 325 mg PO DAILY@0800 Qty: 100 3RF clobetasol 0.05 % ointment 1 applic topical BID Qty: 45 0RF Patient Comments: use if needed Zenpep 25,000-79,000- 105,000 unit capsule,delayed release(DR/EC) 3 cap PO QID Qty: 360 2RF Patient Comments: can take up to 4 a day Rx Instructions: administer with meals and/or snacks metoprolol succinate 50 mg tablet extended release 24 hr 50 mg PO DAILY Qty: 90 1RF Rx Instructions: Take 1 tablet by mouth once daily alprazolam 0.5 mg tablet 0.5 mg PO TID PRN (Reason: anxiety) Qty: 30 0RF levothyroxine 75 mcg tablet 75 mcg PO DAILY Qty: 90 0RF Rx Instructions: take by itself on an empty stomach and do not take iron within 3 hours of taking pantoprazole 40 mg tablet,delayed release (DR/EC) 40 mg PO QAM 30 Days Qty: 90 1RF Patient Comments: Takes at HS Synjardy XR 10-1,000 mg tablet, IR - ER, biphasic 24hr 1 tablet PO QAM Qty: 90 1RF Discontinued Trulance 3 mg tablet 3 mg PO DAILY Qty: 90 0RF Date of admission: 09/21/24 09:48 Primary Care Provider: Jareth Lopez Admitting Provider: Olga Lidia Lobato Attending physician on admission: Randi Salazar Condition: Stable Quality VTE Prophylaxis VTE prophylaxis: pharmacologic ordered Hospitalist MIPS Heart Failure (Exclusion) Patient has history of Heart Transplant or Left Ventricular Assistive Device?: No IF YES, STOP HERE Heart Failure (Qualifier) Patient has current or prior documentation of LVEF less than or equal to 40%, or mod/servere depressed LVSF?: No IF NO, STOP HERE
[2024-09-21] MEDS: polyethylene glycoL 3350 17 GM POWD.PACK PO (15:55)
[2024-09-21 17:02] LABS: Glucose Point of Care 120 mg/dl (65-105)
--- OUTSIDE RECORDS SUMMARY | 2024-09-27 17:39 | XMS_ITS | Encounter Summary ---
Author Organization [facility] Address [address] [place] [address] Care Team Providers Care Aircraft Design Engineer Name Role Phone Jareth Lopez MD Primary Care Provider Encounter Details Date Type Department Care Team (Late st Contact Info) Description 09/15/2023 External Device Data [facility] ABSTRACTION Provider, Abstract NO ADDRESS ON FILE Social History Tobacco Use Types Packs/Day Years Used Date Smoking Tobacco: Never Smokeless Tobacco: Never Alcohol Use Standard Drinks/Week Comments Not Currently 0 (1 standard drink = 0.6 oz pur e alcohol) rarely Sex and Gender Information Value Date Recorded Sex Assigned at Not on file Gender Identity Not on file Sexual Orientation Not on file documented as of this encounter Plan of Treatment Not on file documented as of this encounter Visit Diagnoses Not on filedocumented in this encounter Care Teams Aircraft Design Engineer Relationship Specialty Start Date End Date Jareth Lopez MD [address] [place] [address] PCP - General Family Practice 04/11/13 documented as of this encounter
--- OUTSIDE RECORDS SUMMARY | 2024-09-27 17:39 | XMS_ITS | Encounter Summary ---
Author Organization [facility] Address [address] [place] [address] Care Team Providers Care Field Care Manager Name Role Phone Jareth Lopez MD Primary Care Provider [phone] Reason for Visit * Auth/Cert Specialty Diagnoses / Procedures Referred By Contac t Referred To Contact Perioperative Procedures ESOPHAGOGASTRODUODENOSCOPY COLONOSCOPY [facility] [address] [place] [address] Referral ID Status Reason Start Date Expiration Date Visits Re quested Visits Authorized [id number] 1 1 Encounter Details Date Type Department Care Team (Late st Contact Info) Description 04/24/2021 11:38 AM CDT Anesthesia Event [facility] [place] [address] [address] Zan Londono MD [address] [place] [address] Brian Chaves, JACKELINE-Monserrat [address] [place] [address] Anesthesia Record Procedure Summary Procedure Name Responsible Anesthesiologist Anesthesia Start Time Anesthesia Stop Time COLONOSCOPY (Anus) Zan Londono MD 04/24/21 1138 04/24/21 1218 Events Date Time Event Comment 04/24/2021 1118 1118 AN Equip Check Anesthesia eq uipment and materials checked in accordance with local policy. 1138 An Start 1139 In Room This event disp lays the In Room time documented in the Surgical Log. Deleting this event will not remove it from the log but will remove it from the Grid and Graph timeline. 1139 An Start Data 1142 Pre-Induction Immediate pre- induction anesthetic assessment performed. Vital signs as noted on graphic. 1146 Quick Note Pulse-ox unable to get accurate reading 1149 An Induction 1149 Procedure Start This event d isplays the Procedure Start time documented in the Surgical Log. Deleting this event will not remove it from the log but will remove it from the Grid and Graph timeline. 1149 Anesthesia Ready 1150 Quick Note Pulse-ox placed on right ear lobe; accurate readings 1210 Procedure Stop This event di splays the Procedure Stop time documented in the Surgical Log. Deleting this event will not remove it from the log but will remove it from the Grid and Graph timeline. 1213 an stop data 1215 Out of Room This event disp lays the Out of Room time documented in the Surgical Log. Deleting this event will not remove it from the log but will remove it from the Grid and Graph timeline. 1218 An Stop 1218 Hand-off to Receiving Clinic pancho Post-Anesthetic transfer of care report elements to appropriate post-anesthesia recovery environment completed in accordance with procedure. Meds Name Total lidocaine PF (XYLOCAINE MPF) 20 mg/mL sy ringe 100 mg propofol (DIPRIVAN) 10??mg/mL injection 200 mg phenylephrine 1 mg/10 mL (100 mcg/mL) in jection 100 mcg lactated ringers infusion 900 mL * Agents Name O2 Inspired O2 N2O Inspired N2O * Blood No blood administrations on file. Lines, Drains, and Airways Type Details Placement Removal Peripheral IV Orientation: Anterio r, Distal, Left, Lower; Location: Arm; Device: Angiocath; Gauge: 22 gauge; Needle Length: 1 in length; Insertion Attempts: 1; Patient Tolerance: tolerated well 04/24/21 1042 by Judy Nye RN 04/24/21 1228 by Dorothea Romero RN Supraglottic Airway Type: simple mask; Confirmation: end tidal CO2, satisfactory chest rise 04/24/21 1142 by Brian Chaves AA-C 04/24/21 1212 by Brian Chaves AA-C documented in this encounter Social History Tobacco Use Types Packs/Day Years Used Date Smoking Tobacco: Never Smokeless Tobacco: Never Alcohol Use Standard Drinks/Week Comments Not Currently 0 (1 standard drink = 0.6 oz pur e alcohol) rarely Sex and Gender Information Value Date Recorded Sex Assigned at Not on file Gender Identity Not on file Sexual Orientation Not on file COVID-19 Exposure Response Date Recorded In the last month, have you been in contact with someone who was confirmed or suspected to have Coronavirus / COVID-19? No / Unsure 04/24/2021 10:05 AM CDT documented as of this encounter OR Notes * Anesthesia Postprocedure Evaluation - Zan Londono MD - 04/24/2021 12:57 PM CDT Post Anesthesia Evaluation Vitals: Vitals Value Taken Time BP 117/59 04/24/21 1230 Temp 36.1 ??C 04/24/21 1217 Resp 18 04/24/21 1230 SpO2 100 % 04/24/21 1230 Pulse 74 04/24/21 1230 Heart Rate Pain Rating: Anesthesia Post Evaluation Patient participation: patient was able to participate in the post op evaluation Level of consciousness: 0 = alert, responsive, answers simple questions appropriately, able to perform simple tasks Pain management: adequate Airway patency: patent Nausea or Vomiting: none Anesthetic complications: no Cardiovascular status: regular rate and rhythm Respiratory status: no respiratory symptoms Hydration status: well hydrated Phase II Postanesthesia Evaluation Including [facility] Modified Valerie Score Patient seen and evaluated: yes [facility] Modified Valerie Score: Score: 20 (04/24/211217) COMMENTS: No apparent Anesthesia related complications RESPIRATORY FUNCTION: Respiration: able to breath and cough freely (04/24/211217) [2=able to breathe and cough freely, 1=dyspnea, limited breathing or tachypnea, 0=apnea or mechanicventilator] O2 Saturation: able to maintain O2 saturation greater than 92% on room air (04/24/211217) [2=able to maintain O2 saturation greater than 92% on room air, 1=needs O2 inhalation to maintain O2 saturation greater than 90%, 0=O2 saturation less than 90% even with O2 supplement] Resp: 18 (04/24/21 1230)SpO2: 100 % (04/24/21 1230) CARDIOVASCULAR FUNCTION: BP: 117/59 (04/24/21 1230) Circulation: BP within 20% of preanesthetic level (04/24/211217) [2=BP within 20% of preanesthetic level, 1=BP within 20-49% of preanesthetic level, 0=BP within 50%of preanesthetic level] MENTAL STATUS, NEURO, ACTIVITY: PATIENT PARTICIPATION IN EVALUATIONyes Consciousness: fully awake (04/24/211217) [2=fully awake, 1=arousable on calling, 0=not responding] Activity: able to move 4 extremities voluntarily or on command (04/24/211217) [2=able to move 4 extremities voluntarily or on command, 1=able to move 2 extremities voluntarily or on command, 0=unable to move extremities voluntarily or on command] Ambulation: able to stand up and walk straight, on ordered bedrest, or performing at patient's prior level of function (04/24/211217) [2=able to stand up and walk straight, on ordered bedrest, or performing at patient's prior level of function, 1=vertigo when erect, 0=dizziness when supine] TEMPERATURE: Temp: 36.1 ??C (04/24/211216) PAIN: Pain: pain free (04/24/211217) [2=pain free, 1=pain handled by oral medication, 0=pain requiring parenteral medication] NAUSEA AND VOMITING: no nausea and no vomiting Fasting/Feeding: able to drink fluids, ice chips or NPO (04/24/211217) [2=able to drink fluids, ice chips or NPO, 1=nauseated, 0=nausea and vomiting] POSTOPERATIVE HYDRATION: well hydrated Intake/Output Summary (Last 24 hours) at 04/24/2021 1257 Last data filed at 04/24/2021 1221 Gross per 24 hour Intake 1020 ml Output -- Net 1020 ml Urine Output: has voided, adequate urine output per device, or not applicable (04/24/211217) [2=has voided, adequate urine output per device, or not applicable, 1=unable to void but comfortable, 0=unable to void and uncomfortable] WOUND: Dressing: dry and clean or not applicable (07/22/21 1218) [2=dry and clean or not applicable, 1=wet, marked and not increasing, 0=growing area of wetness] Zan Londono MD 04/24/2021 12:57 PM Zan Londono MD * Anesthesia Handoff - Brian Chaves AA-C - 04/24/2021 12:18 PM CDT Post-Anesthetic transfer of care report elements to appropriate post-anesthesia recovery environment completed in accordance with procedure. I completed my handoff to the receiving nurse during which we: 1. Identified the patient 2. Identified the responsible provider 3. Reviewed the pertinent medical history 4. Discussed the surgical course 5. Reviewed intra-op anesthesia management and issues during anesthesia 6. Set expectations for post-procedure period 7. Orders as necessary and appropriate for continuation of care are present in Epic. 8. Allowed opportunity for questions and acknowledgement of understanding. Vital Signs: BP: (!) 122/41 (04/24/2021 12:17 PM) Pulse: 74 (04/24/2021 12:17 PM) Temp: 36.1 ??C (04/24/2021 12:17 PM) Resp: 18 (04/24/2021 12:17 PM) SpO2: 100 % (04/24/2021 12:17 PM) 12:19 PM Brian Chaves AA-C * Anesthesia Preprocedure Evaluation - Zan Londono MD - 04/24/2021 11:17 AM CDT Relevant Problems No relevant active problems Anesthesia Evaluation Patient summary reviewed Airway Mallampati: II TM distance: >3 FB Neck ROM: full Dental - normal exam Pulmonary - normal exam breath sounds clear to auscultation (+) asthma (no recent issues), Cardiovascular - normal exam Exercise tolerance: good (+) hypertension, Rhythm: regular Rate: normal Neuro/Psych - negative ROS GI/Hepatic/Renal (+) GERD, bowel prep Endo/Other (+) diabetes mellitus type 2 well controlled, arthritis Abdominal - normal exam (-) obese Abdomen: soft. Anesthesia History No history of anesthetic complications. Anesthesia Plan ASA Final: 2 MAC Intravenous induction NPO status: >2 hours clears, >8 hours solids. Anesthetic plan and risks discussed with Patient. Plan discussed with Anesthesiologist Forensic Analyst. Post-op Pain Control Plan to use IV or IM medication for post-op pain control. Smoking Compliance Patient did not smoke on day of surgery documented in this encounter Plan of Treatment Not on file documented as of this encounter Visit Diagnoses Not on filedocumented in this encounter Administered Medications Inactive Administered Medications - up to 3 most recent administrations Medication Order MAR Action Action Date Dose Rate Site lactated ringers infusion IV, at 125 mL/hr, PRE-PROCEDURE CONTINUOUS, Starting on Marina 04/24/21 at 1045, Until Marina 04/24/21 at 1514, Routine, Pre-Procedure Continue from Pre-Op 04/24/2021 11:38 AM CDT 125 mL/hr New Bag 04/24/2021 10:42 AM CDT 125 mL/hr lidocaine (PF) (XYLOCAINE MPF) 60 mg/3 mL (2 %) injection syringe IV, INTRA-PROCEDURE PRN, Starting on Marina 04/24/21 at 1149, Until Marina 04/24/21 at 1218, Routine, Anesthesia Intra-op Given 04/24/2021 11:49 AM CDT 100 mg phenylephrine 1 mg/10 mL (100 mcg/mL) injection IV, INTRA-PROCEDURE PRN, Starting on Marina 04/24/21 at 1152, Until Marina 04/24/21 at 1218, Routine, Anesthesia Intra-op Given 04/24/2021 11:52 AM CDT 100 mcg propofoL (DIPRIVAN) injection IV, INTRA-PROCEDURE PRN, Starting on Marina 04/24/21 at 1149, Until Marina 04/24/21 at 1218, Anesthesia Intra-op Given 04/24/2021 12:05 PM CDT 30 mg Given 04/24/2021 12:02 PM CDT 30 mg Given 04/24/2021 11:59 AM CDT 20 mg documented in this encounter Care Teams Field Care Manager Relationship Specialty Start Date End Date Jareth Lopez MD [address] [place] [address] PCP - General Family Practice 04/11/13 documented as of this encounter
--- OUTSIDE RECORDS SUMMARY | 2024-09-27 17:39 | XMS_ITS | Encounter Summary ---
Author Organization [facility] Address [address] [place] [address] Care Team Providers Care Poacher Operator Name Role Phone Jareth Lopez MD Primary Care Provider [phone] Encounter Details Date Type Department Care Team (Late st Contact Info) Description 10/31/2023 External Device Data ST[facility] ABSTRACTION Provider, Abstract [...] on filedocumented in this encounter Care Teams Poacher Operator Relationship Specialty Start Date End Date Jareth Lopez MD [address] [place] [address] PCP - General Family Practice 04/11/13 documented as of this encounter
--- OUTSIDE RECORDS SUMMARY | 2024-09-27 17:39 | XMS_ITS | Encounter Summary ---
Author Organization [facility] Address 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 Name Role Phone Jareth Lopez MD Primary Care Provider Reason for Visit * Auth/Cert Specialty Diagnoses / Procedures Referred By Contmaggie t Referred To Contact Perioperative Diagnoses Cyclical vomiting syndrome unrelated to migraine Personal history of malignant neoplasm of pancreas Procedures ESOPHAGOGASTRODUODENOSCOPY [facility] [address] [place] [address] Referral ID Status Reason Start Date Expiration Date Visits Re quested Visits Authorized [id number] 1 1 Encounter Details Date Type Department Care Team (Latest Contact Info) Description 07/24/2021 6:09 AM CDT - 07/24/2021 8:19 AM T Hospital Encounter [facility] S [facility] [address] [place] [address] Edmond Gant MD [address] [address] Cyclical vomiting syndrome unrelated to migraine Discharge Disposition: Home or Self Care Social History Tobacco Use Types Packs/Day Years [...] have Coronavirus / COVID-19? No / Unsure 07/24/2021 6:11 AM CDT documented as of this encounter Last Filed Vital Signs Vital Sign Reading Time Taken Comments Blood Pressure 125/54 07/24/2021 8:06 AM CDT Pulse 75 07/24/2021 8:06 AM CDT Temperature 36.2 ??C (97.1 ??F) 07/24/2021 7:48 AM CD T Respiratory Rate 18 07/24/2021 8:06 AM CDT Oxygen Saturation 99% 07/24/2021 8:06 AM CDT Inhaled Oxygen Concentration - - Weight 65.6 kg (144 lb 9.6 oz) 07/24/2021 6:41 A M CDT Height 160 cm (5' 3 ) 07/24/2021 6:41 AM CDT Body Mass Index 25.61 07/24/2021 6:41 AM CDT documented in this encounter Discharge Instructions * Discharge Instructions* Paul Cuello RN - 07/24/2021 7:57 AM CDT If you should experience: Severe abdominal pain, chest pain, fever, chills, shortness of breath, inability to swallow, abnormal bleeding or any other concerns following your procedure. Call your physician or come to the Emergency Department. Please follow these instructions: 1. During your procedure you may have received sedation. You should rest at home for the remainder of the day. You should NOT drive or perform any activities that require a completely alert mind during this recovery period. Alcohol should NOT be used for at least 24 hours. 2. Following your upper endoscopy, you may have a sore throat. Try gargling with warm water or use Chloraseptic lozenges as needed. Once you are fully alert and feel you can swallow without difficulty, you may have a light meal. You may then progress on to your usual diet, unless otherwise instructed by your physician. 3. This includes your current and historical medications prescribed by your physician (s). Continue your current medications and any newly prescribed during this visit. If you have questions, please call the physician who prescribed the medication. documented in this encounter Medications at Time of Discharge Medication Sig Dispensed Refills Start Date End Date lipase/protease/amylase (CREON ORAL) Take 2 Capsules by mouth 2 times daily. metoprolol succinate (TOPROL XL) 50 mg Extended Release 24 hour tablet TAKE 1 TABLET BY MOUTH ONCE DAILY 11/14/2018 empagliflozin/metformin HCl (SYNJARDY ORAL)Indications:2 a day in the morning Take by mouth. docusate sodium (COLACE) 100 mg capsule Take 1 Capsule (100 mg) by mouth 2 times daily Take while taking narcotics for pain. 30 Capsule 0 02/07/2016 POTASSIUM GLUCONATE ORAL Take 595 mg by mouth Daily LATE. Cholecalciferol, Vitamin D3, 3,000 unit Tablet Take 2,000 Units by mouth daily. MULTIVITAMIN WITH MINERALS (HAIR,SKIN AND NAILS ORAL) Take by mouth. omeprazole (PRILOSEC) 20 mg Capsule, Delayed Release(E.C.) Take 20 mg by mouth daily. multivitamin (DAILY-JASPER) tablet Take 1 Tab by mouth daily. triamterene-hydrochloro thiazide (MAXZIDE 25) 37.5-25 mg tablet Take 1 Tab by mouth daily. L GASSERI/B BIFIDUM/B LONGUM ([employer] ORAL) Take by mouth. documented as of this encounter H&P Notes * Edmond Gant MD - 07/24/2021 7:28 AM CDT PRE PROCEDURE EVALUATION - EGD DATE: 07/24/2021 HPI: This is a 70 y.o. female patient scheduled for EGD for- nausea, vomiting. Diarrhea. History of gastric hyperplastic polyp Patient Active Problem List Diagnosis Date Noted ??? Uncomplicated alcohol abuse 12/16/2018 ??? Pancreatic adenocarcinoma 01/04/2014 Overview Note: Found incidentally at the time of her Whipple pathology. Tumors were small in the setting of a intraductal papillary mucinous neoplasm and no further adjuvant therapy is needed. She will need a screening CAT scan every 6 months for 2 years to be sure there is no sign of recurrence ??? Electrolyte imbalance 12/06/2013 ??? Hypertension 12/05/2013 ??? Diabetes mellitus 12/05/2013 ??? GERD (gastroesophageal reflux disease) 12/05/2013 ??? Hyperlipidemia 12/05/2013 ??? Elevated LFTs 12/05/2013 Past Medical History: Diagnosis Date ??? Arthritis ??? Asthma as a child ??? At risk for obstructive sleep apnea 01/27/2016 stop bang 2 ??? Cancer pancreas- surg only ??? COVID-19 vaccine series completed Pfizer ??? Diabetes mellitus type 2 ??? Diverticulitis ??? Edema, lower extremity pt takes triameterene/hctz ??? HTN (hypertension) ??? Kidney calculus Crystals in my kidneys ??? MVP (mitral valve prolapse) does not cause CP/SOB ??? 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 CHG ANES COLONOSCOPY,DIAGNOSTIC ??? CHG ANESTH,DX ARTHROSCOPIC PROC KNEE JOINT right ??? ENDOSCOPY, GI ??? HX APPENDECTOMY ??? HX SECTION 1971 1976 ??? HX CYST REMOVAL Left index and pointer finger ??? HX EYE SURGERY age 5 cross eyed/glaucoma ??? HX FOOT SURGERY Bilateral four different surgeries ??? HX HERNIA INCISIONAL REPAIR N/A 02/07/2016 HERNIA VENTRAL INCISIONAL REPAIR performed by Andi Marley MD at [facility] OR [facility] ??? HX LUMBAR DISKECTOMY Left 03/29/2015 SPINAL MICRODISCECTOMY MINIMALLY INVASIVE - LEFT L5-S1 M.I. DISCECTOMY performed by Truman Streeter MD at [facility] OR [facility] ??? HX SINUS SURGERY ??? HX TONSILLECTOMY age 6 ??? MI COLONOSCOPY FLX DX W/COLLJ SPEC WHEN PFRMD N/A 04/11/2018 COLONOSCOPY performed by Edmond Gant MD at [facility] GI [facility] ??? MI COLONOSCOPY FLX DX W/COLLJ SPEC WHEN PFRMD N/A 04/24/2021 COLONOSCOPY performed by Edmond Gant MD at [facility] ??? MI ESOPHAGOGASTRODUODENOSCOPY TRANSORAL DIAGNOSTIC N/A 04/11/2018 ESOPHAGOGASTRODUODENOSCOPY performed by Edmond Gant MD at [facility] ??? MI PART REMV PANC,PROX+REMV DUOD 12/04/2013 WHIPPLE performed by Andi Marley MD at [facility] OR [facility] Medications Prior to Admission Medication Sig Dispense Refill Last Dose ??? lipase/protease/amylase (CREON ORAL) Take 2 Capsules by mouth 2 times daily. Past Week at Unknown time ??? metoprolol succinate (TOPROL XL) 50 mg Extended Release 24 hour tablet TAKE 1 TABLET BY MOUTH ONCE DAILY 07/23/2021 at Unknown time ??? empagliflozin/metformin HCl (SYNJARDY ORAL) Take by mouth. Past Week at Unknown time ??? docusate sodium (COLACE) 100 mg capsule Take 1 Capsule (100 mg) by mouth 2 times daily Take while taking narcotics for pain. 30 Capsule 0 ??? POTASSIUM GLUCONATE ORAL Take 595 mg by mouth Daily LATE. Past Week at Unknown time ??? Cholecalciferol, Vitamin D3, 3,000 unit Tablet Take 2,000 Units by mouth daily. Past Week at Unknown time ??? MULTIVITAMIN WITH MINERALS (HAIR,SKIN AND NAILS ORAL) Take by mouth. Past Week at Unknown time ??? omeprazole (PRILOSEC) 20 mg Capsule, Delayed Release(E.C.) Take 20 mg by mouth daily. Past Weekat Unknown time ??? multivitamin (DAILY-JASEPR) tablet Take 1 Tab by mouth daily. Past Week at Unknown time ??? triamterene-hydrochlorothiazide (MAXZIDE 25) 37.5-25 mg tablet Take 1 Tab by mouth daily. Past Week at Unknown time ??? L GASSERI/B BIFIDUM/B LONGUM ([employer] ORAL) Take by mouth. Past Week at Unknown time Allergies Allergen Reactions ??? Penicillins Anaphylaxis ??? Sulfa (Sulfonamide Antibiotics) Hives ??? Codeine Other (See Comments) Respiratory arrest ??? Oxycodone Other (See Comments) Can tolerate small dose ??? Adhesive Other (See Comments) Blisters ??? Nickel Other (See Comments) Sores Social History Tobacco Use ??? Smoking status: Never Smoker ??? Smokeless tobacco: Never Used Substance Use Topics ??? Alcohol use: Not Currently Comment: rarely Family History Problem Relation Name Age of Onset ??? Healthy Father ??? Other Father blood poisoning ??? Lung Cancer Mother ??? Lung Cancer Maternal Grandfather ??? Cancer Maternal Aunt colon ??? Cancer Maternal Aunt leukemia ??? Lung Cancer Maternal Aunt ??? Colon Cancer Neg Hx Head: atraumatic, Normocephalic, without obvious abnormality Lungs: clear to auscultation bilaterally, normal respiratory effort Airway: No apparent abnormality Heart: normal rate, regular rhythm, normal S1, S2, no murmurs, rubs, clicks or gallops Abdomen: Soft, non-tender. Bowel sounds normal. No masses, no organomegaly. Neurologic: Grossly normal ASA Classification: ASA 2 - Patient with mild systemic disease with no functional limitations Informed Consent: The patient was informed of the indications for the procedure, the risks/benefits and the alternatives, and agreed to proceed. In particular, the patient was informed of the risk of perforation/(1:1000), medication side effect, infection, a missed lesion, or incomplete examination. In the case of dilatation, the patient was informed of the risk of perforation (1 to 5%). There was nothing onhistory or physical examination precluding the procedure. IMPRESSION & PLAN: Indications for procedure as noted in HPI. Will proceed with the above mentioned procedure(s) as scheduled. Edmond Gant MD Advanced Endoscopy, EUS/ERCP documented in this encounter Procedure Notes * Edmond Gant MD - 07/24/2021 8:00 AM CDTAssociated Order(s): UPPER ENDOSCOPY REPORT [facility] Endoscopy Patient Name: Elena Fernández Procedure Date: 07/24/2021 Date of : 1950 Attending MD: Edmond Gant MD Procedure: Upper GI endoscopy Indications: Nausea vomiting diarrhea. History of Whipple surgery with anatomy. History of hyperplastic gastric polyp. Providers: Edmond Gant MD Referring MD: Jareth Lopez MD Medicines: Propofol per Anesthesia Complications: No immediate complications. Procedure: Informed consent was obtained for the procedure, including moderate sedation after risks were discussed. Based on the pre-procedure assessment, including review of the patient's medical history, medications, allergies, and review of systems, the patient was deemed to be an appropriate candidate for sedation. A timeout was performed. Continuous ECG monitoring, pulse oximetry, blood pressure monitoring, and direct observation were performed. The Endoscope was introduced through the mouth, and advanced to the third part of duodenum. The upper GI endoscopy was accomplished without difficulty. The patient tolerated the procedure well. Estimated Blood Loss: Estimated blood loss: none. Findings: The esophageal mucosa was without erythema or ulceration. The GE junction was intact. The gastric mucosa showed diffuse erythematous changes but was without discrete ulcerations or erosions. There were surgical changes consistent with previous Whipple surgery involving the distal stomach. The gastro enteral anastomosis was patent. The small bowel afferent and efferent limb were identified and normal in appearance. The enteral mucosa and lumen were normal in appearance. The endoscope was withdrawn to the gastric body. Biopsies were taken from the gastric mucosa and sent for histologic review. There was mild friability of the gastric mucosa post biopsy. Self-limited bleeding. Retroflexion showed a grossly normal proximal stomach. Impression: Mild gastropathy by endoscopic appearance. Biopsies taken from the stomach body and sent for histologic review. Patent gastro enteral anastomosis with normal antral mucosa and lumen. Normal esophagus. Recommendation: Continue PPI regimen. Continue pancreatic enzyme supplement. Further management pending clinical course. Edmond Gant MD 07/24/2021 8:00:34 AM This report has been signed electronically. Number of Addenda: 0 [address] [facility]; [place] [address] * Elena John RN - 07/17/2021 12:35 PM CDT Images from the original note were not included. [facility] GI Nurse Assessment Patient: Elena Fernández : 1950 Endoscopist: Surgeon(s): Edmond Gant MD Upcoming Procedure: Procedure to be Performed: Procedure(s): ESOPHAGOGASTRODUODENOSCOPY Procedure Date/Time: 07/24/2021 at 0700 Diagnosis/Indication for procedure: Pre-Op Diagnosis Codes: * Cyclical vomiting syndrome unrelated to migraine [R11.15] * Personal history of malignant neoplasm of pancreas [Z85.07] Location: [facility] GI LAB Referring Physician: Jareth Lopez Patient's BMI: Body mass index is 26.57 kg/m??. Is patient a candidate for offsite location? no Medications Type of prep given: EGD with 3 days of clear liquids Anticoagulants: no none Relevant prior procedure/pathology: Last Pathology: Past Surgical History: Past Surgical History: Procedure Laterality Date ??? CHG ANES COLONOSCOPY,DIAGNOSTIC ??? CHG ANESTH,DX ARTHROSCOPIC PROC KNEE JOINT right ??? ENDOSCOPY, GI ??? HX APPENDECTOMY ??? HX SECTION 1972 1976 ??? HX CYST REMOVAL Left index and pointer finger ??? HX EYE SURGERY age 5 cross eyed/glaucoma ??? HX FOOT SURGERY Bilateral four different surgeries ??? HX HERNIA INCISIONAL REPAIR N/A 02/07/2016 HERNIA VENTRAL INCISIONAL REPAIR performed by Andi Marley MD at [facility] OR [facility] ??? HX LUMBAR DISKECTOMY Left 03/29/2015 SPINAL MICRODISCECTOMY MINIMALLY INVASIVE - LEFT L5-S1 M.I. DISCECTOMY performed by Truman Streeter MD at [facility] OR [facility] ??? HX SINUS SURGERY ??? HX TONSILLECTOMY age 6 ??? MI COLONOSCOPY FLX DX W/COLLJ SPEC WHEN PFRMD N/A 04/11/2018 COLONOSCOPY performed by Edmond Gant MD at [facility] GI [facility] ??? MI COLONOSCOPY FLX DX W/COLLJ SPEC WHEN PFRMD N/A 04/24/2021 COLONOSCOPY performed by Edmond Gant MD at [facility] GI [facility] ??? MI ESOPHAGOGASTRODUODENOSCOPY TRANSORAL DIAGNOSTIC N/A 04/11/2018 ESOPHAGOGASTRODUODENOSCOPY performed by Edmond Gant MD at [facility] GI [facility] ??? MI PART REMV PANC,PROX+REMV DUOD 12/04/2013 WHIPPLE performed by Andi Marley MD at [facility] OR [facility] Past Medical History: Past Medical History: Diagnosis Date ??? Arthritis ??? Asthma as a child ??? At risk for obstructive sleep apnea 01/27/2016 stop bang 2 ??? Cancer pancreas- surg only ??? COVID-19 vaccine series completed Pfizer ??? Diabetes mellitus type 2 ??? Diverticulitis ??? Edema, lower extremity pt takes triameterene/hctz ??? HTN (hypertension) ??? Kidney calculus Crystals in my kidneys ??? MVP (mitral valve prolapse) does not cause CP/SOB ??? 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 Current Outpatient Medications on File Prior to Encounter Medication Sig Dispense Refill ??? lipase/protease/amylase (CREON ORAL) Take 2 Capsules by mouth 2 times daily. ??? metoprolol succinate (TOPROL XL) 50 mg Extended Release 24 hour tablet TAKE 1 TABLET BY MOUTH ONCE DAILY ??? empagliflozin/metformin HCl (SYNJARDY ORAL) Take by mouth. ??? docusate sodium (COLACE) 100 mg capsule Take 1 Capsule (100 mg) by mouth 2 times daily Take while taking narcotics for pain. 30 Capsule 0 ??? POTASSIUM GLUCONATE ORAL Take 595 mg by mouth Daily LATE. ??? Cholecalciferol, Vitamin D3, 3,000 unit Tablet Take 2,000 Units by mouth daily. ??? MULTIVITAMIN WITH MINERALS (HAIR,SKIN AND NAILS ORAL) Take by mouth. ??? omeprazole (PRILOSEC) 20 mg Capsule, Delayed Release(E.C.) Take 20 mg by mouth daily. ??? multivitamin (DAILY-JASPER) tablet Take 1 Tab by mouth daily. ??? triamterene-hydrochlorothiazide (MAXZIDE 25) 37.5-25 mg tablet Take 1 Tab by mouth daily. ??? L GASSERI/B BIFIDUM/B LONGUM ([employer] ORAL) Take by mouth. documented in this encounter OR Notes * Amirah-OP - Candice Aguirre RN - 07/24/2021 6:43 AM CDT Patient/Family discussion included an explanation that: Standard practice for endoscopists at [facility] includes use of an oral bite block to facilitate upper endoscopy and to prevent you from biting onto the scope or yourself during the procedure.This bite block is placed by a [facility] procedure room nurse/nuclear medicine technician prior to the procedure. Pressure that you place on this bite block during the procedure may cause damage to teeth, fillings, and/or dental appliances that may be due to pre-existing dental disease or the age/wear of your dental appliance or structural weakness of teeth or a dental appliance; that may be a known or unknown condition. Should you experience new dental symptoms or a dental complication, if you choose, an effort will be made to facilitate a same day or prompt dental evaluation by [facility] Dental Medicine. * Amirah-OP - Elena John RN - 07/17/2021 12:35 PM CDT Routine Pre-Anesthesia Protocol for GI Lab Procedures [facility] Approved by: [facility] - Medical Executive Committee Approval Date: 02/20/2021 ORDERS ARE ENTERED ???PER PROTOCOL?? Enter the protocol in the patient???s electronic health record using [employer]: [email or web address] NURSING ORDERS: Monitoring: o Obtain and record vital signs o Continuous vital signs (Non-invasive blood pressure, pulse oximetry and cardiac monitoring) for all inpatients and all patients currently taking beta-blockers o Place #20 gauge IV in non-dominant, non-operative or not otherwise excluded upper extremity o Contact responsible anesthesiologist if recommending use of a #22 gauge IV o See medication section for local Anesthetic to use to initiate IV LABORATORY ORDERS: Screening Protocol: o Urine bHCG (serum if necessary) Female of menses, or age > 12 y/o Point of Care Testing: FOR PATIENTS WITH A HISTORY OF DIABETES, RECEIVING INSULIN, OR EXHIBITING SIGNS AND SYMPTOMS OF HYPOGLYCEMIA. o POC glucose on initial assessment o POC glucose every 4 hours if NPO o POC glucose within 30 minutes of discharge or transfer to another unit (the time based intra-procedure POC check may be deferred during short procedures at the discretion of the provider) o POC for any patient exhibiting signs and symptoms of hypoglycemia o If POC Glucose results are critical, do not delay treatment. If appropriate, may confirm POC with: Nursing Only [id number] (this lab can be obtained at no cost to the patient when confirming a criticalhigh or critical low POC glucose MEDICATION ORDERS: o Local Anesthetic to use to initiate IV line: Lidocaine 2% 0.3mL intradermal ONE TIME to numb areaof IV catheter insertion PRN. IV Fluid - Adult patients (age 18 years or greater): o Lactated ringer???s solution to infuse at 125mL/hr, may discontinue upon discharge from procedurearea o Patient specific modification as indicated: ? If patient is found to have a serum creatinine >2 or history of renal failure, RN may change fluid to NS at 10ml/hr Contact provider to consider dextrose containing fluids for: o NPO patients who have received PO or injectable antihyperglycemic agents and glucose is less [id number] mg/dl o NPO patients who have NOT received PO or injectable antiHYPERglycemic agents and POC glucose is less than 70 mg/dL. o When receiving report on an inpatient, confirm if patient is receiving dextrose containing fluidsto prevent hypoglycemia. Communicate with the anesthesiologist and request glucose containing fluids be continued or added to intraoperative Fluids. o Any time a patient???s enteral or parenteral nutrition is interrupted for longer than four hours and POC glucose or serum glucose is less than 100 mg/dL contact provider for dextrose containing fluids o Notify provider for any POC glucose or serum glucose less than 70 mg/dL. RESCUE MEDICATION ORDERS - entered by the Pharmacist conveyor loader RESCUE ORDERS - entered by the Pharmacist or the newspaper managing editor Orders Patient has IV access and UNCONCIOUS, UNWILLING to swallow or NPO Glucose Level Treatment 40-69 mg/dL Dextrose 50% IV, give 12.5 grams (25 ml), IV push ONE TIME Less than 40 mg/dL Dextrose 50% IV, give 25 grams (50 ml), IV push ONE TIME Patient has no IV access, patient UNCONCIOUS, unable to swallow or NPO Glucose Level Treatment Less than 70 mg/dL Administer IM GLUCAGON 1 mg one time. After administration of glucagon is complete insert peripheral IV and notify physician. Patient is CONCIOUS and able to swallow and no longer NPO Glucose Level Treatment 40-69 mg/dL Give 15 gram food choice such as: Regular soda (6 oz), Apple juice (4 oz), or 1/2 cup regular jello Less Than 40 mg/dL Give 30 gram food choice such as: Regular soda (12 oz), Apple juice (8 oz), or 1cup regular jello Nursing Communication for Subsequent Care: ??? Check POC glucose 15 minutes after rescue. ??? Recheck and retreat every 15 minutes until blood glucose is greater than or equal to 70 mg/dL. ??? Once POC glucose result is 70 mg/dL or greater: o Check POC glucose every 30 minutes for 3 occurrences o Resume previous POC Glucose check orders. After Hypoglycemic Symptoms Subside, Give a Snack or Ask Provider for Dextrose Containing Fluids SNACK CHOICES: 1 carb and 1 fat servin saltine crackers and 2 teaspoons peanut butter; or 1 slice of bread and 2 teaspoons peanut butter; or 1 oz cheese and 6 saltine crackers; or 1 cup 2% milk and 6 saltine crackers. * Amirah-OP - Elena John RN - 07/17/2021 12:33 PM CDT Precall completed. Already has prep , diabetic, and preprocedure instructions. Is to be on clear liquids 3 days per physician instructions. Reviewed with pt. Discussed visitor restrictions, use of masks, and COVID 19 screenings prior to entering hospital. Verbalizes understanding. Pt aware of need for skip load driver. All of the patients questions answered. Encouraged to call back with any further questions. documented in this encounter Plan of Treatment Not on file documented as of this encounter Procedures Procedure Name Priority Date/Time Associated Diagnosis Comments UPPER ENDOSCOPY REPORT 8:01 AM CDT POC GLUCOSE Routine 07/24/2021 7:53 AM CDT PATHOLOGY Pathology 07/24/2021 7:45 AM CDT Cyclical vomiting syndrome unrelated to migraine Personal history of malignant neoplasm of pancreas ESOPHAGOGASTRODUODENOSCOPY 07/24 7:00 AM CDT Cyclical vomiting syndrome unrelated to migraine Personal history of malignant neoplasm of pancreas Case Notes 07/17 no mm or email POC GLUCOSE Routine 07/24/2021 6:52 AM CDT documented in this encounter Results * UPPER ENDOSCOPY REPORT (07/24/2021 8:01 AM CDT) Narrative Procedure Note Edmond Gant MD - 07/24/2021 8:00 AM CDT [facility] Endoscopy Patient Name: Elena Fernández Procedure Date: 07/24/2021 Date of : 1950 Attending MD: Edmond Gant MD Procedure: Upper GI endoscopy Indications: Nausea vomiting diarrhea. History of Whipple surgery with anatomy. History of hyperplastic gastric polyp. Providers: Edmond Gant MD Referring MD: Jareth Lopez MD Medicines: Propofol per Anesthesia Complications: No immediate complications. Procedure: Informed consent was obtained for the procedure, including moderate sedation after risks were discussed. Based on the pre-procedure assessment, including review of the patient's medical history, medications, allergies, and review of systems, the patient was deemed to be an appropriate candidate for sedation. A timeout was performed. Continuous ECG monitoring, pulse oximetry, blood pressure monitoring, and direct observation were performed. The Endoscope was introduced through the mouth, and advanced to the third part of duodenum. The upper GI endoscopy was accomplished without difficulty. The patient tolerated the procedure well. Estimated Blood Loss: Estimated blood loss: none. Findings: The esophageal mucosa was without erythema or ulceration. The GE junction was intact. The gastric mucosa showed diffuse erythematous changes but was without discrete ulcerations or erosions. There were surgical changes consistent with previous Whipple surgery involving the distal stomach. The gastro enteral anastomosis was patent. The small bowel afferent and efferent limb were identified and normal in appearance. The enteral mucosa and lumen were normal in appearance. The endoscope was withdrawn to the gastric body. Biopsies were taken from the gastric mucosa and sent for histologic review. There was mild friability of the gastric mucosa post biopsy. Self-limited bleeding. Retroflexion showed a grossly normal proximal stomach. Impression: Mild gastropathy by endoscopic appearance. Biopsies taken from the stomach body and sent for histologic review. Patent gastro enteral anastomosis with normal antral mucosa and lumen. Normal esophagus. Recommendation: Continue PPI regimen. Continue pancreatic enzyme supplement. Further management pending clinical course. Edmond Gant MD 07/24/2021 8:00:34 AM This report has been signed electronically. Number of Addenda: 0 [address] [facility] [place] [address] Edmond Gant MD GI PROCEDURE ORDERAB LES * POC GLUCOSE (07/24/2021 7:53 AM CDT) GLUCOSE POC 84 74 - 99 mg/dL 07/24/2021 7:53 AM CDT [facility] FLEECE TIER NAME LÓPEZ MEDINA (SCHOELCH) 07/24/2021 7:53 AM CDT [facility] Blood, whole 07/24/2021 7:53 AM CDT 07/24/2021 8:03 AM CDT Edmond Gant MD POINT OF CARE TESTIN G [facility]# [id number] [address] [place] [id number] * PATHOLOGY (07/24/2021 7:45 AM CDT) CASE REPORT Surgical Pathology R eport ? Case: [id number] ? Authorizing Provider: ??Edmond Gant MD ?Collected: ? 07/24/2021 07:45 AM ? Ordering Location: ? [facility] [address] ??Received: ?07/24/2021 09:26 AM ? Pathologist: ? Staci Lu MD ? Specimen: ?Small Intestine, bx ? 9:37 AM [facility] FINAL DIAGNOSIS Small intestine, biopsy: - Oxyntic mucosa with proton pump inhibitor effect (see microscopic). - No Helicobacter-type organisms identified on routine sections. 9:37 AM [facility] S DESCRIPTION Received in one container labeled Elena Fernández and small intestine biopsy are 4 pieces of pink-mackay tissue ranging from 0.1 to 0.2 cm in greatest dimension. All are submitted in cassette A1. [facility] 9:37 AM [facility] MICROSCOPIC DESCRIPTION The slides are labeled [id number] and Elena Fernández. Although the specimen is labeled small intestine biopsy, the endoscopic report states that biopsies of the gastric body were performed. Histologic sections show oxyntic mucosa with proton pump inhibitor effect with no significant inflammation. No Helicobacter-type organisms are identified on routine sections. 9:37 AM [facility] OPERATIVE PROCEDURE 1: ESOPHAGOGASTRODUODENOSCOP Y 9:37 AM [facility] CLINICAL INFORMATION Small bowel Bx's. Rule out sprue (chronic diarrhea and/or Iron deficiency anemia). Cyclical vomiting syndrome unrelated to migraine [R11.15] Personal history of malignant neoplasm of pancreas [Z85.07] 9:37 AM [facility] COMMENT Special stain and/or immunohistochemical results are interpreted with controls that demonstrate appropriate staining reactions. Note on use of immunocytochemistry reagents: This test was developed and its performance characteristics determined by [facility], Department of Laboratory Medicine. It has not been cleared or approved by the U.S. Food and Drug Administration. The FDA has determined that such clearance or approval is not necessary. The test is used for clinical purposes. It should not be regarded as investigational or for research. This laboratory is certified to perform high complexity testing. Frozen section/operating room consultation, gross examination and dissection, and case sign out may have been performed in part or completely in the following laboratories: [facility], [place] #[id number] [address] [place] [address] [facility][id number] [address] [place] [address] [facility]/[place], [place] #[id number] [address] [place] [address] This report was created with the Emme E2MS voice-activated dictation system. Inherent to this system is the possibility of syntax, grammar, punctuation and other errors that could impact the interpretation of the report. If there are interpretative questions about aspects of this report, please contact the performing pathologist. 9:37 AM CDT [facility] Tissue (Small Intestine) Collection / Unknown 07/24/2021 7:45 AM CDT 07/24/2021 9:26 AM CDT Comment:Small bowel Bx's. Ru le out sprue (chronic diarrhea and/or Iron deficiency anemia. Edmond Gant MD PATHOLOGY[facility] [id number] [address] [address] * POC GLUCOSE (07/24/2021 6:52 AM CDT) GLUCOSE POC 98 74 - 99 mg/dL 07/24/2021 6:52 AM CDT [facility] FLEECE TIER NAME POC OCTAVIO ADAMES 07/24/2021 6:52 AM CDT [facility] Blood, whole 07/24/2021 6:52 AM CDT 07/24/2021 6:59 AM CDT Edmond Gant MD POINT OF CARE TESTIN G [facility] CLIA# [id number] [address] [place] [address] documented in this encounter Visit Diagnoses Diagnosis Cyclical vomiting syndrome unrelated to migraine Personal history of malignant neoplasm of pancreas Personal history of malignant neoplasm of other site in gastrointestinal tract documented in this encounter Administered Medications Inactive Administered Medications - up to 3 most recent administrations Medication Order MAR Action Action Date Dose Rate Site lactated ringers infusion IV, at 125 mL/hr, PRE-PROCEDURE CONTINUOUS, Starting on Marina 07/24/21 at 0645, Until Marina 07/24/21 at 1103, Routine, Pre-Procedure Restarted 07/24/2021 7:40 AM CDT Continue from Pre-Op 07/24/2021 7:35 AM CDT 125 mL/hr New Bag 07/24/2021 6:52 AM CDT 125 mL/hr documented in this encounter Active and Recently Administered Medications Times are shown in CDT. Continuous Medication Order 07/22/2021 07/23/2021 07/24/2021 lactated ringers infusion IV, at 125 mL/hr, PRE-PROCEDURE CONTINUOUS, Starting on Marina 07/24/21 at 0645, Until Marina 07/24/21 at 1103, Routine, Pre-Procedure 0652 (New Bag - Prov ider: Candice Aguirre RN)0735 (Continue from Pre-Op - Provider: CASANDRA Thompson)0739 (Paused - Provider: CASANDRA Thompson - Comment: Switch to gravity)0740 (Restarted - Provider: CASANDRA Thompson)0750 (Stopped - Provider: CASANDRA Thompson) documented in this encounter Care Teams Juke Box Mechanic Relationship Specialty Start Date End Date Jareth Lopez MD [address] [place] [address] PCP - General Family Practice 04/11/13 documented as of this encounter
--- OUTSIDE RECORDS SUMMARY | 2024-09-27 17:39 | XMS_ITS | Encounter Summary ---
Author Organization [facility] Address [address] [place] [address] Care Team Providers Care Skin Tanner Name Role Phone Jareth Lopez MD Primary Care Provider Encounter Details Date Type Department Care Team (Late st Contact Info) Description 05/15/2021 Orders Only [facility] Gastroenterology [place] A [address] [place] [address] Edmond Gant MD [address] [place] [address] Social History Tobacco Use Types Packs/Day Years [...] AM CDT documented as of this encounter Progress Notes * Tamika Danielle - 05/15/2021 8:45 AM CDT Received on 05/14/2021 a incoming referral (outside [facility]) entered referral into chart electronically and scanned referral + outside records into chart under Media tab. documented in this encounter Plan of Treatment Not on file documented as of this encounter Visit Diagnoses Not on filedocumented in this encounter Care Teams Skin Tanner Relationship Specialty Start Date End Date Jareth Lopez MD [address] [place] [address] PCP - General Family Practice 04/11/13 documented as of this encounter
--- OUTSIDE RECORDS SUMMARY | 2024-09-27 17:39 | XMS_ITS | Patient Health Summary ---
Author Organization [facility] Address [address] [place] [address] Care Team Providers Care Stone Breaker Name Role Phone Jareth Lopez MD Primary Care Provider [phone] Note from [facility],non-owned Affiliates and Associated Physician Practices is amultiple site organization consisting of ambulatory clinics and hospital sitesin [place], [place], [place] and [place]. This disclosure is being madepursuant to the Care Everywhere program and may not contain all information available regarding this patient. Last updated 18.[facility] Allergies * Codeine(Shortness of Breath) * Penicillins(Shortness of Breath) * Sulfa Drugs(Skin Reactions) Active Problems Problem Noted Date Diagnosed Date Other specified disorders of nose and nasal sinu ses 06/21/2012 Dysphonia 02/16/2012 Allergic rhinitis 08/14/2011 Chronic maxillary sinusitis 08/14/2011 Immunizations * TDAP (7yrs+)(Given 04/19/2020) Social History Tobacco Use Types Packs/Day Years Used Date Smoking Tobacco: Never Smokeless Tobacco: Never Alcohol Use Standard Drinks/Week Comments No 0 (1 standard drink = 0.6 oz pur e alcohol) Sex and Gender Information Value Date Recorded Sex Assigned at Not on file Gender Identity Not on file Sexual Orientation Not on file Procedures * LAB HISTORICAL RESULTS-ONBASE(Performed 11/24/2011) * LAB HISTORICAL RESULTS-ONBASE(Performed 11/24/2011) * LAB HISTORICAL RESULTS-ONBASE(Performed 11/24/2011) Results * LAB HISTORICAL RESULTS-ONBASE (11/24/2011) Only the most recent of3 resultswithin the time period is included. 11/24/2011 Charan Wang MD LAB - CHEMISTRY ORD ERABLES Performing Organization Address City/State/[facility] Co de Phone Number [facility] [address] [place] [address], [facility] Care Teams Stone Breaker Relationship Specialty Start Date End Date Jareth Lopez MD [address] [place] [address] PCP - General 05/31/09
--- OUTSIDE RECORDS SUMMARY | 2024-09-27 17:39 | XMS_ITS | Encounter Summary ---
Author Organization [facility] Address [address] [place] [address] Dr. Downingn: Epic Prelude ADT [place] [address] Care Team Providers Care Training And Development Professional Name Role Phone Jareth Lopez MD Primary Care Provider Encounter Details Date Type Department Care Team (Latest Contact Info) Description 01/22/2023 Travel Social History Tobacco Use Types Packs/Day Years [...] Exposure Response Date Recorded In the last 10 days, have yo u been in contact with someone who was confirmed or suspected to have Coronavirus/COVID-19? No / Unsure 01/22/2023 8:53 AM CDT documented as of this encounter Plan of Treatment Not on file documented as of this encounter Visit Diagnoses Not on filedocumented in this encounter Care Teams Training And Development Professional Relationship Specialty Start Date End Date Jareth Lopez MD [address] [place] [address] PCP - General Family Practice 04/11/13 documented as of this encounter
--- OUTSIDE RECORDS SUMMARY | 2024-09-27 17:39 | XMS_ITS | Encounter Summary ---
Author Organization [facility] Address [address] [place] [address] Care Team Providers Care Lens Edge Grinder Machine Name Role Phone Jareth Lopez MD Primary Care Provider [phone] Encounter Details Date Type Department Care Team (Latest Contact Info) Description 04/19/2020 Travel Social History Tobacco Use Types Packs/Day [...] have Coronavirus / COVID-19? No / Unsure 04/19/2020 9:56 AM CDT documented as of this encounter Plan of Treatment Not on file documented as of this encounter Visit Diagnoses Not on filedocumented in this encounter Care Teams Lens Edge Grinder Machine Relationship Specialty Start Date End Date Jareth Lopez MD [address] [place] [address] PCP - General 05/31/09 documented as of this encounter
--- OUTSIDE RECORDS SUMMARY | 2024-09-27 17:39 | XMS_ITS | Encounter Summary ---
Author Organization [facility] Address [address] [place] [address] Attn: Epic Prelude ADT [place] [address] Care Team Providers Care Junior Web Designer Name Role Phone Jareth Lopez MD Primary Care Provider [phone] Encounter Details Date Type Department Care Team (Latest Contact Info) Description 04/24/2021 Travel Social History Tobacco Use Types Packs/Day [...] on filedocumented in this encounter Care Teams Junior Web Designer Relationship Specialty Start Date End Date Jareth Lopez MD [address] [place] [address] PCP - General Family Practice 04/11/13 documented as of this encounter
--- OUTSIDE RECORDS SUMMARY | 2024-09-27 17:39 | XMS_ITS ---
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 Tumors were small in the setting of a intraductal papillary mucinous neoplasm and no further adjuvant therapy is needed. She will need a screening CAT scan every 6 months for 2 years to be sure there is no sign of recurrence Electrolyte imbalance 12/06/2013 Hypertension 12/05/2013 Diabetes mellitus 12/05/2013 GERD (gastroesophageal reflux disease) 4 Hyperlipidemia 12/05/2013 Elevated LFTs 12/05/2013 Current Oncology Plans No current plan information found. Past Plans No past plan information found. Radiation Treatments * No radiation treatments are documented for this patient in [facility]. Treatments may have been administered in another system. Lifetime Dose Tracking * Chemical Lifetime Dose Automatic Entry Manual Entr y Effective Dose 33.7 mSv 33.7 mSv 0 mSv Total DLP 1,971 DLP 1,971 DLP 0 DLP CTDIvol Max 33.5 mGy 33.5 mGy 0 mGy CTDIvol Min 30.8 mGy 30.8 mGy 0 mGy Resolved Problems Problem Noted Date Diagnosed Date Resolved Date Pancreas cyst 04/13/2013 01/04/2014 Overview (04/13/2013): Multiple cysts/mucinous neoplasm of the pancreatic head less than 2 cm being observed with serial endoscopic ultrasound
--- OUTSIDE RECORDS SUMMARY | 2024-09-27 17:39 | XMS_ITS | Referral Summary ---
Author Organization [facility] Address [address] [place] [address] Care Team Providers Care Silicator Name Role Phone Jareth Lopez MD Primary Care Provider [phone] Source Comments [facility],non-owned Affiliates and Associated Physician Practices is amultiple site organization consisting of ambulatory clinics and hospital sitesin [place], [place], [place] and [place]. This disclosure is being madepursuant to the Care Everywhere program and may not contain all information available regarding this patient. Last updated 18.[facility] Allergies Active Allergy Reactions Criticality Noted Date Comments Codeine Shortness of Breath 08/14/2011 Penicillins Shortness of Breath 08/14/2011 Sulfa Drugs Skin Reactions 08/14/2011 Active Problems Problem Noted Date Diagnosed Date Other specified disorders of nose and nasal sinu ses 06/21/2012 Dysphonia 02/16/2012 Allergic rhinitis 08/14/2011 Chronic maxillary sinusitis 08/14/2011 Immunizations Name Administration Dates Next Due TDAP (7yrs+) 04/19/2020 Social History Tobacco Use Types Packs/Day Years Used Date Smoking Tobacco: Never Smokeless Tobacco: Never Alcohol Use Standard Drinks/Week Comments No 0 (1 standard drink = 0.6 oz pur e alcohol) Sex and Gender Information Value Date Recorded Sex Assigned at Not on file Gender Identity Not on file Sexual Orientation Not on file Plan of Treatment Not on file Care Teams Silicator Relationship Specialty Start Date End Date Jareth Lopez MD [address] [place] [address] PCP - General 05/31/09
--- OUTSIDE RECORDS SUMMARY | 2024-09-27 17:39 | XMS_ITS | Encounter Summary ---
Author Organization [facility] Address [address] [place] [address] Care Team Providers Care Respiratory Support Technician Name Role Phone Jareth Lopez MD Primary Care Provider Reason for Visit * Auth/Cert Specialty Diagnoses / Procedures Referred By Contmaggie t Referred To Contact Perioperative Procedures ESOPHAGOGASTRODUODENOSCOPY COLONOSCOPY [facility] [address] [place] [address] Referral ID Status Reason Start Date Expiration Date Visits Re quested Visits Authorized [id number] 1 1 Encounter Details Date Type Department Care Team (Late st Contact Info) Description 04/24/2021 11:00 AM CDT - 04/24/2021 11:40 AM CDT Surgery [facility] [address] [place] [address] Edmond Gant MD [address] [address] COLONOSCOPY Surgery Details Date/Time Status Location OR Service Patient Class Case Class Case Type Trauma Case? 04/24/2021 11:00 AM Posted [facility] GI 05 Gastroenterology Outpatient Elective No Panel 1 Procedure LRB Anes Op Region Wound Class Comments COLONOSCOPY N/A General Anus Surgeon Surgeon Role Service Panel Edmond Gant MD Primary Gastroenterology 1 documented in this encounter Social History Tobacco [...] Sign Reading Time Taken Comments Blood Pressure 155/71 04/24/2021 10:39 AM CDT Pulse 83 04/24/2021 10:39 AM CDT Temperature 36.3 ??C (97.3 ??F) 04/24/2021 10:39 AM C DT Respiratory Rate 18 04/24/2021 10:39 AM CDT Oxygen Saturation 100% 04/24/2021 10:39 AM CDT Inhaled Oxygen Concentration - - Weight 65.6 kg (144 lb 9.6 oz) 04/24/2021 10:39 AM CDT Height 160 cm (5' 3 ) 04/24/2021 10:39 AM CDT Body Mass Index 25.61 04/24/2021 10:39 AM CDT documented in this encounter Discharge Instructions * Discharge Instructions* FriendDorothea RN - 04/24/2021 12:22 PM CDT If you should experience: Severe abdominal [...] at least 24 hours. 2. Following your colonoscopy you may expect your bowel habits to return to normal in 2-3 days. 3. Following your upper endoscopy, you may have a sore throat. Try gargling with warm water or use Chloraseptic lozenges as needed. Once you are fully alert and feel you can swallow without difficulty, you may have a light meal. You may then progress on to your usual diet, unless otherwise instructed by your physician. 4. This includes your current and historical medications prescribed by your physician (s). Continue your current medications and any newly prescribed during this visit. If you have questions, please call the physician who prescribed the medication. documented in this encounter Medications at Time of Discharge Medication Sig Dispensed Refills Start Date End Date metoprolol succinate (TOPROL XL) 50 mg Extended [...] by mouth daily. L GASSERI/B BIFIDUM/B LONGUM ([employer] ORAL) Take by mouth. documented as of this encounter H&P Notes * Edmond Gant MD - 04/24/2021 11:40 AM CDT PRE PROCEDURE EVALUATION - Colonoscopy DATE: 04/24/2021 HPI: This is a 70 y.o. female patient scheduled for Colonoscopy for- diarrhea. History of pancreatic cancer, sp whipple. History of gastric hyperplastic polyps in 2018. Planned for endoscopic surveillance of the gastric hyperplastic polyp noting risk for malignant transformation. However insurance company does not approve surveillance for hyperplastic polyps. Discussed peer to peer with Dr Tabitha Bain on the denial of c overage. In discussion with the patient today she does admit to episodes of severe abdominal pain and vomiting. Will need to schedule procedure (EGD) on separate day after re submitting for insurance approval. Patient Active Problem List Diagnosis Date Noted [...] Edema, lower extremity pt takes triameterene/hctz ??? GERD (gastroesophageal reflux disease) patient denies ??? Kidney calculus Crystals in my kidneys ??? MVP (mitral valve prolapse) does not cause CP/SOB ??? 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 [...] REPAIR performed by Andi Marley MD at [facility] OR [facility] ??? HX LUMBAR DISKECTOMY Left 03/29/2015 SPINAL MICRODISCECTOMY MINIMALLY INVASIVE - LEFT L5-S1 M.I. DISCECTOMY performed by Truman Streeter MD at [facility] OR [facility] ??? HX SINUS SURGERY ??? HX TONSILLECTOMY age 6 ??? MA COLONOSCOPY FLX DX W/COLLJ SPEC WHEN PFRMD N/A 04/11/2018 COLONOSCOPY performed by Edmond Gant MD at [facility] GI LAB ??? MA ESOPHAGOGASTRODUODENOSCOPY TRANSORAL DIAGNOSTIC N/A 04/11/2018 ESOPHAGOGASTRODUODENOSCOPY performed by Edmond Gant MD at [facility] GI [facility] ??? MA PART REMV PANC,PROX+REMV DUOD 12/04/2013 WHIPPLE performed by Andi Marley MD at [facility] OR [facility]IN Medications Prior to Admission Medication Sig Dispense Refill Last Dose ??? metoprolol succinate (TOPROL XL) 50 mg Extended Release 24 hour tablet TAKE 1 TABLET BY MOUTH ONCE DAILY 04/24/2021 at Unknown time ??? empagliflozin/metformin HCl (SYNJARDY ORAL) Take by mouth. 04/23/2021 at Unknown time ??? docusate sodium (COLACE) 100 mg capsule Take 1 Capsule (100 mg) by mouth 2 times daily Take while taking narcotics for pain. 30 Capsule 0 04/23/2021 at Unknown time ??? POTASSIUM GLUCONATE ORAL Take 595 mg by mouth Daily LATE. Past Week at Unknown time ??? Cholecalciferol, Vitamin D3, 3,000 unit Tablet Take 2,000 Units by mouth daily. ??? MULTIVITAMIN WITH MINERALS (HAIR,SKIN AND NAILS ORAL) Take by mouth. Past Week at Unknown time ??? omeprazole (PRILOSEC) 20 mg Capsule, Delayed Release(E.C.) Take 20 mg by mouth daily. 04/23/2021t Unknown time ??? multivitamin (DAILY-JASPER) tablet Take 1 Tab by mouth daily. Past Week at Unknown time ??? triamterene-hydrochlorothiazide (MAXZIDE 25) 37.5-25 mg tablet Take 1 Tab by mouth daily. 04/23/2021 at Unknown time ??? L GASSERI/B BIFIDUM/B LONGUM ([employer] ORAL) Take by mouth. Allergies Allergen Reactions ??? Penicillins Anaphylaxis ??? [...] organomegaly. Neurologic: Grossly normal ASA Classification: ASA 3 - Patient with moderate systemic disease with functional limitations Informed Consent: The patient was [...] Procedure Notes * Edmond Gant MD - 04/24/2021 12:19 PM CDTAssociated Order(s): COLONOSCOPY REPORT [facility] Endoscopy Patient Name: Elena Fernández Procedure Date: 04/24/2021 Date of : 1950 Attending MD: Edmond Gant MD Procedure: Colonoscopy Indications: Surveillance: Personal history of adenomatous polyps on last colonoscopy > 5 years ago Providers: Edmond Gant MD Referring MD: Jareth [...] monitoring, and direct observation were performed. The Colonoscope was introduced through the anus and advanced to the cecum, identified by appendiceal orifice and ileocecal valve. The colonoscopy was performed without difficulty. The patient tolerated the procedure well. The quality of the bowel preparation was good. Estimated Blood Loss: Estimated blood loss: none. Findings: The colonic mucosa was without erythema or ulceration. There was left-sided diverticulosis noted. The colon prep was good. Within the cecum there was a flat 12 mm benign-appearing polyp removed using cold snare polypectomy technique and collected for pathologic review. Within the ascending colon there was a 10 to 11 mm benign-appearing polyp removed using cold snare polypectomy technique. Slightly more distal within the ascending colon there was a benign 7 to 8 mm benign-appearing polyp removed using cold snare polypectomy technique and collected for pathologic review. Retroflexion showed internal hemorrhoids. Impression: Benign-appearing colon polyps status post polypectomy as dictated. Internal hemorrhoids. Left-sided diverticulosis. Recommendation: For colon polyp surveillance recommend follow-up colonoscopy in 5 years Edmond Gant MD 04/24/2021 12:19:04 PM This report has been signed electronically. Number of Addenda: 0 [address] [facility]; [place] [address] * Elena John RN - 04/16/2021 12:02 PM CDT Images from the original note were not included. [facility] GI Nurse Assessment Patient: Elena Fernández : 1950 Endoscopist: Surgeon(s): Edmond Gant MD Upcoming Procedure: Procedure to be Performed: Procedure(s): ESOPHAGOGASTRODUODENOSCOPY COLONOSCOPY Procedure Date/Time: 04/24/2021 at 1100 Diagnosis/Indication for procedure: Z86.010-hx colonic polyps, K31.7 Gastric polyps Location: [facility] Referring Physician: Jareth Lopez Patient's BMI: Body mass index is 25.15 kg/m??. Is patient a candidate for offsite location? yes Medications Type of prep given: CSP Anticoagulants: no none Relevant prior procedure/pathology: Findings: The colonic mucosa was without erythema or ulceration. There was moderate left sided diverticulosis. Within the right colon there were several (5-6) adenomatous appearing polyps ranging in size from 5-15 mm. The polyps were resected using cold snare polypectomy and collected for pathologic review. Retroflexion showed internal hemorrhoids. Impression: Benign appearing colon polyps sp polypectomy as indicted. Mild left sided diverticulosis. Internae hemorrhoids. Recommendation: For colon polyp surveillance recommend follow up colonoscopy in 3-4 years (2020). Edmond Gant MD 04/11/2018 8:19:02 AM This report has been signed electronically. Number of Addenda: [address]; [place] [address] Last Pathology: Collected: 04/11/2018 ??7:56 AM Received: 04/11/2018 ??8:56 AM Colon Polyp(s). ??Adenomatous vs hyperplastic vs other. PATHOLOGY: [id number] Order: [id number] Collected: 04/11/2018 07:39 Status: Final result ?Visible to patient: No (not released) 1 Result Note ?? 1 Follow-up Encounter Component FINAL DIAGNOSIS Stomach, distal nodule, endoscopic biopsy: - Hyperplastic polyp, inflamed. - Adjacent mucosa with reactive (chemical) gastropathy. ?? Large bowel, right colon polyps, endoscopic biopsy: - Tubular adenoma. - Sessile serrated adenoma, several fragments. at 1811 SPECIMEN DESCRIPTION (A) Distal stomach nodule; (B) right colon polyps. Past Surgical History: Past Surgical History: Procedure [...] REPAIR performed by Andi Marley MD at [facility] OR [facility] ??? HX LUMBAR DISKECTOMY Left 03/29/2015 SPINAL MICRODISCECTOMY MINIMALLY INVASIVE - LEFT L5-S1 M.I. DISCECTOMY performed by Truman Streeter MD at [facility] OR [facility] ??? HX SINUS SURGERY ??? HX TONSILLECTOMY age 6 ??? MA COLONOSCOPY FLX DX W/COLLJ SPEC WHEN PFRMD N/A 04/11/2018 COLONOSCOPY performed by Edmond Gant MD at [facility] GI LAB ??? MA ESOPHAGOGASTRODUODENOSCOPY TRANSORAL DIAGNOSTIC N/A 04/11/2018 ESOPHAGOGASTRODUODENOSCOPY performed by Edmond Gant MD at [facility] GI [facility] ??? MA PART REMV PANC,PROX+REMV DUOD 12/04/2013 WHIPPLE performed by Andi Marley MD at [facility] OR [facility] Past Medical History: Past Medical History: Diagnosis Date ??? Arthritis ??? Asthma as a child ??? At risk for obstructive sleep apnea 01/27/2016 stop bang 2 ??? Cancer pancreas- surg only ??? COVID-19 vaccine series completed Pfizer ??? Diabetes mellitus type 2 ??? Diverticulitis ??? Edema, lower extremity pt takes triameterene/hctz ??? GERD (gastroesophageal reflux disease) patient denies ??? Kidney calculus Crystals in my kidneys ??? MVP (mitral valve prolapse) does not cause CP/SOB ??? 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 Current Outpatient Medications on File Prior to Encounter Medication Sig Dispense Refill ??? empagliflozin/metformin HCl (SYNJARDY ORAL) Take by mouth. ??? POTASSIUM GLUCONATE ORAL Take 595 mg by mouth Daily LATE. ??? Cholecalciferol, Vitamin D3, 3,000 unit Tablet Take 2,000 Units by mouth daily. ??? omeprazole (PRILOSEC) 20 mg Capsule, Delayed Release(E.C.) Take 20 mg by mouth daily. ??? multivitamin (DAILY-JASPER) tablet Take 1 Tab by mouth daily. ??? triamterene-hydrochlorothiazide (MAXZIDE 25) 37.5-25 mg tablet Take 1 Tab by mouth daily. ??? metoprolol succinate (TOPROL XL) 50 mg Extended Release 24 hour tablet TAKE 1 TABLET BY MOUTH ONCE DAILY ??? docusate sodium (COLACE) 100 mg capsule Take 1 Capsule (100 mg) by mouth 2 times daily Take while taking narcotics for pain. 30 Capsule 0 ??? MULTIVITAMIN WITH MINERALS (HAIR,SKIN AND NAILS ORAL) Take by mouth. ??? [DISCONTINUED] docusate sodium (COLACE) 100 mg capsule Take 100 mg by mouth 2 times daily as needed for Constipation. ??? L GASSERI/B BIFIDUM/B LONGUM ([employer] ORAL) Take by mouth. documented in this encounter OR Notes * Amirah-OP - Judy Nye RN - 04/24/2021 10:43 AM CDT Patient/Family discussion included an explanation that: Standard practice for endoscopists at [facility] includes use of an oral bite block to facilitate upper endoscopy and to prevent you from biting onto the scope or yourself during the procedure.This bite block is placed by a [facility] procedure room nurse/structured cabling technician prior to the procedure. Pressure that [...] same day or prompt dental evaluation by [facility] Dental Medicine. * Amirah-OP Judy Paul RN - 04/24/2021 10:29 AM CDT Patient/Family discussion included an explanation that: Standard practice for endoscopists at [facility] includes use of an oral bite block to facilitate upper endoscopy and to prevent you from biting onto the scope or yourself during the procedure.This bite block is placed by a [facility] procedure room nurse/structured cabling technician prior to the procedure. Pressure that [...] same day or prompt dental evaluation by [facility] Dental Medicine. * Amirah-OP - Elena John RN - 04/16/2021 12:02 PM CDT Routine Pre-Anesthesia Protocol for GI Lab Procedures [facility] Approved by: [facility] - Medical Executive Committee Approval Date: 02/20/2021 ORDERS ARE ENTERED ???PER PROTOCOL?? Enter the protocol in the patient???s electronic health record using [employer]: .anestprotocolgilab NURSING ORDERS: Monitoring: o Obtain and [...] appropriate, may confirm POC with: Nursing Only [id number] (this lab can be obtained at no [...] injectable antihyperglycemic agents and glucose is less [id number] mg/dl o NPO patients who have NOT [...] MEDICATION ORDERS - entered by the Pharmacist motorman/woman RESCUE ORDERS - entered by the Pharmacist or the machine precision engraver Orders Patient has IV access and UNCONCIOUS, [...] * Amirah-OP - Elena John RN - 04/16/2021 11:51 AM CDT Precall completed. Pt familiar with prep and preprocedure instructions. Reviewed briefly. Prescription for prep sent to pt's pharmacy. Faxed Colyte prep, COVID and preprocedure instructions to pt. Instructed to take beta melvin with a sip of water the morning of the procedure. Given specific instructions concerning use of diabetic medicines the day of the preparation and the day of the procedure. Discussed visitor restrictions, use of masks, and COVID 19 screenings prior to entering hospital. Verbalizes understanding. Pt aware of need for swing driver. All of the patients questions answered. Encouraged to call back with any further questions. documented in this encounter Miscellaneous Notes * Query - Edmond Gant MD - 04/24/2021 6:49 AM CDT Please respond within 48 hours. Thank you! The authenticated query note is part of the Legal Health Record Patient Name: Elena Fernández Admission Date: 04/24/2021 [facility] #: [id number] Dear Doctor, Clinical indicators and/or treatment for this patient include diarrhea and screening colonoscopy. Screening test - testing for disease/disease precursors in a seemingly well individual (no signs and symptoms present) so that early detection/treatment can be provided for those who test positive. Diagnostic test - testing of an individual with signs and/or symptoms to rule out or confirm a suspected diagnosis. The signs and symptoms are the reason for the test; when a definitive diagnosis is made, assign that diagnosis code. Follow-Up - As documented by the Physician, the follow-up codes are used to explain continuing surveillance following completed treatment of a disease, condition, or injury. They imply that the condition has been fully treated and no longer exists. Follow-up is usually within designated time framesor intervals following removal of the pathology (i.e. 6 months, 1 yr.) Note: To answer the following question(s), please click EDIT button on the activity bar then click F2 in front of the highlighted area(s). OP note Procedure: Colonoscopy Indications: Surveillance: Personal history of adenomatous polyps on last colonoscopy > 5 years ago H&P?? DATE: 04/24/2021 HPI: This is a 70 y.o. female patient scheduled for Colonoscopy for- diarrhea. Answer 1: High Risk Screening/Surveillance for Personal Hx of adenomatous colon polyp(s) Question 2: The symptom(s) of diarrhea found in the H&P, conflicts with the indication for the procedure stated as Screening found in the operative report. Clarify the significance of the symptom(s) as it relates to the clinical indication(s) for the procedure: - The listed symptom(s) is a clinically significant indication(s) for the procedure ( diarrhea of unexplained origin requiring diagnostic work-up). - The listed symptom(s) is not a clinically significant indication(s) for the procedure ( Screening procedure). - Other (Specify) Answer 2: Other (Specify) - error in cafeteria server. No biopsies for diarrhea taken in diagnostic In responding to this query, please exercise your independent professional judgment. Please be advised that coding regulations for inpatient admissions allow the physician to document presumptive/probable diagnoses. The fact that a question is asked does not imply that any particular answer is desired or expected. Thank you, This query was initiated by Linda Dudley. For questions on this coding query please contact me Jozef Dudley at [phone] documented in this encounter Plan of Treatment Not on file documented as of this encounter Procedures Procedure Name Priority Date/Time Associated Diagnosis Comments POC GLUCOSE Routine 04/24/2021 12:22 PM CDT COLONOSCOPY REPORT 04/24/2021 12 :19 PM CDT PATHOLOGY Pathology 04/24/2021 12:05 PM CDT COLONOSCOPY 04/24/2021 11:00 AM CDT POC GLUCOSE Routine 04/24/2021 10:38 AM CDT documented in this encounter Results * POC GLUCOSE (04/24/2021 12:22 PM CDT) GLUCOSE POC 83 74 - 99 mg/dL 04/24/2021 12:22 PM CDT [facility] LEGAL OFFICE ADMINISTRATOR NAME POC SHUBHAM CORTES 04/24/2021 12:22 PM CDT [facility] Blood, whole 04/24/2021 12:2 2 PM CDT 04/24/2021 12:31 PM CDT Edmond Gant MD POINT OF CARE TESTIN G [facility]# [id number] [address] [place] [address] * COLONOSCOPY REPORT (04/24/2021 12:19 PM CDT) Narrative Procedure Note Edmond Gant MD - 04/24/2021 12:19 PM CDT [facility] Endoscopy Patient Name: Elena Fernández Procedure Date: 04/24/2021 Date of : 1950 Attending MD: Edmond Gant MD Procedure: Colonoscopy Indications: Surveillance: Personal history of adenomatous polyps on last colonoscopy > 5 years ago Providers: Edmond Gant MD Referring MD: Jareth [...] monitoring, and direct observation were performed. The Colonoscope was introduced through the anus and advanced to the cecum, identified by appendiceal orifice and ileocecal valve. The colonoscopy was performed without difficulty. The patient tolerated the procedure well. The quality of the bowel preparation was good. Estimated Blood Loss: Estimated blood loss: none. Findings: The colonic mucosa was without erythema or ulceration. There was left-sided diverticulosis noted. The colon prep was good. Within the cecum there was a flat 12 mm benign-appearing polyp removed using cold snare polypectomy technique and collected for pathologic review. Within the ascending colon there was a 10 to 11 mm benign-appearing polyp removed using cold snare polypectomy technique. Slightly more distal within the ascending colon there was a benign 7 to 8 mm benign-appearing polyp removed using cold snare polypectomy technique and collected for pathologic review. Retroflexion showed internal hemorrhoids. Impression: Benign-appearing colon polyps status post polypectomy as dictated. Internal hemorrhoids. Left-sided diverticulosis. Recommendation: For colon polyp surveillance recommend follow-up colonoscopy in 5 years Edmond Gant MD 04/24/2021 12:19:04 PM This report has been signed electronically. Number of Addenda: 0 [address] ; [place] [address] Edmond Gant MD GI PROCEDURE ORDERAB LES * PATHOLOGY (04/24/2021 12:05 PM CDT) CASE REPORT Surgical Pathology Report ? Case: [id number] ? Authorizing Provider: ??Edmond Gant MD ?Collected: ? 04/24/2021 12:05 PM ? Ordering Location: ? [facility] [address] ??Received: ?04/24/2021 02:00 PM ? Pathologist: ? Jarred Butler MD ? Specimen: ?Colon, polyps ? 04/25/2021 12:35 PM [facility] [employer] [facility] FINAL DIAGNOSIS A. Colon, polyps, biopsy: - Tubular adenoma, fragments of. - Sessile serrated adenoma, separate fragments of. 04/25/2021 12:35 PM [facility] S DESCRIPTION Received in one container labeled Elena Fernández and colon polyps are multiple (greater than 10) pieces of red-mackay tissue ranging from 0.2 to 1.0 cm in greatest dimension. All are submitted in cassette A1. [facility] 04/25/2021 12:35 PM [facility] [employer] [facility] MICROSCOPIC DESCRIPTION The slides are labeled [id number] and Elena Fernández. The colon polyps show multiple fragments of colonic mucosa with altered tubular glands lined by cells with cytologic dysplasia (reduced mucus content, nuclear pseudostratification, and nuclear hyperchromasia). High grade dysplasia and malignancy are not identified. Separate fragments show a mucosal proliferation with architectural serrations that extend to the base of glandular crypts and with branching, blunted, and/or and dilated crypts that are irregular in shape or contour. 04/25/2021 12:35 PM CDT [facility] OPERATIVE PROCEDURE 1: COLONOSCOPY 04/25/2021 12:35 PM CDT [facility] CLINICAL INFORMATION 04/25/2021 12:35 PM CDT [facility] COMMENT Special stain and/or immunohistochemical results are interpreted with controls that demonstrate appropriate staining reactions. Note on use of immunocytochemistry reagents: This test was developed and its performance characteristics determined by [facility], Department of Laboratory Medicine. It has not [...] part or completely in the following laboratories: [facility], CLIA #[id number] [address] [place] [address] [id number] [address] [place] [address] [id number] [address] [place] [address] 04/25/2021 12:35 PM CDT [facility] Tissue SPECIMEN FROM COLON / Unknown Collection / Unknown 04/24/2021 12:05 PM CDT 04/24/2021 2:00 PM CDT Edmond Gant MD PATHOLOGY/CYTOLOGY O RDERABLES [facility] CLIA# [id number] [address] [place] [address] * POC GLUCOSE (04/24/2021 10:38 AM CDT) GLUCOSE POC 88 74 - 99 mg/dL 04/24/2021 10:38 AM CDT [facility] LEGAL OFFICE ADMINISTRATOR NAME POC PRISCILA ( pn. - JUDY SINGLETARY 04/24/2021 10:38 AM CDT [facility] Blood, whole 04/24/2021 10:3 8 AM CDT 04/24/2021 10:51 AM CDT Edmond Gant MD POINT OF CARE TESTIN G [facility] CLIA# [id number] [address] [place] [address] documented in this encounter Visit Diagnoses Not on filedocumented [...] Bag 04/24/2021 10:42 AM CDT 125 mL/hr documented in this encounter Active and Recently Administered Medications Times are shown in CDT. Continuous Medication Order 04/22/2021 04/23/2021 04/24/2021 lactated ringers infusion IV, at 125 mL/hr, PRE-PROCEDURE CONTINUOUS, Starting on Marina 04/24/21 at 1045, Until Marina 04/24/21 at 1514, Routine, Pre-Procedure 1042 (New Bag - Prov ider: Judy Nye RN)1138 (Continue from Pre-Op - Provider: Edmond Gant MD)1218 (Fluid Volume - Provider: CASANDRA Iniguez)1223 (Stopped - Provider: Dorothea Romero RN) documented in this encounter Care Teams Respiratory Support Technician Relationship Specialty Start Date End Date Jareth Lopez MD [address] [place] [address] PCP - General Family Practice 04/11/13 documented as of this encounter
--- OUTSIDE RECORDS SUMMARY | 2024-09-27 17:39 | XMS_ITS | Encounter Summary ---
Author Organization [facility] Address [address] [place] [address] Care Team Providers Care Vendor Management Specialist Name Role Phone Jareth Lopez MD Primary Care Provider [phone] Encounter Details Date Type Department Care Team (Late st Contact Info) Description 11/03/2023 External Device Data ST[facility] ABSTRACTION Provider, Abstract [...] on filedocumented in this encounter Care Teams Vendor Management Specialist Relationship Specialty Start Date End Date Jareth Lopez MD [address] [place] [address] PCP - General Family Practice 04/11/13 documented as of this encounter
--- OUTSIDE RECORDS SUMMARY | 2024-09-27 17:39 | XMS_ITS | Encounter Summary ---
Author Organization [facility] Address 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 Personal history of malignant neoplasm of pancreas Procedures ESOPHAGOGASTRODUODENOSCOPY [facility] [address] [place] [address] Referral ID Status Reason Start Date Expiration Date Visits Re quested Visits Authorized [id number] 1 1 Encounter Details Date Type Department Care Team (Late st Contact Info) Description 07/24/2021 7:35 AM CDT Anesthesia Event [facility] S [facility] [address] [place] [address] Paul De Paz DO [address] [place] [address] Anesthesia Record Procedure Summary Procedure Name Responsible Anesthesiologist Anesthesia Start Time Anesthesia Stop Time ESOPHAGOGASTRODUODENOSCOPY (Mouth) Paul De Paz DO 07/24/21 0735 07/24/21 0750 Events Date Time Event Comment 07/24/2021 0645 AN Equip Check Anesthesia eq uipment and materials checked in accordance with local policy. 0654 0735 An Start 0737 An Start Data 0737 In Room This event disp lays the In Room time documented in the Surgical Log. Deleting this event will not remove it from the log but will remove it from the Grid and Graph timeline. 0739 Pre-Induction Immediate pre- induction anesthetic assessment performed. Vital signs as noted on graphic. 0740 An Induction 0741 Anesthesia Ready 0742 Procedure Start This event d isplays the Procedure Start time documented in the Surgical Log. Deleting this event will not remove it from the log but will remove it from the Grid and Graph timeline. 0744 Procedure Stop This event di splays the Procedure Stop time documented in the Surgical Log. Deleting this event will not remove it from the log but will remove it from the Grid and Graph timeline. 0746 an stop data 0748 Out of Room This event disp lays the Out of Room time documented in the Surgical Log. Deleting this event will not remove it from the log but will remove it from the Grid and Graph timeline. 0750 An Stop 0750 Hand-off to Receiving Clinic pancho Post-Anesthetic transfer of care report elements to appropriate post-anesthesia recovery environment completed in accordance with procedure. BP: (!) 96/36 (07/24/2021 7:48 AM) Pulse: 76 (07/24/2021 7:48 AM) Temp: 36.2 ??C (07/24/2021 7:48 AM) Resp: 16 (07/24/2021 7:48 AM) SpO2: 100 % (07/24/2021 7:48 AM) Meds Name Total lidocaine (XYLOCAINE) 2% injection 30 mg propofol (DIPRIVAN) 10??mg/mL injection 90 mg ketamine (KETALAR) 10??mg/mL injection 1 0 mg benzocaine (HURRICAINE ONE) 20% PF spray 2 [place] lactated ringers infusion 600 mL * Agents Name O2 Inspired O2 N2O Inspired N2O O2 * Blood No blood administrations on file. Lines, Drains, and Airways Type Details Placement Removal Supraglottic Airway Type: nasal cannula; Confirmation: end tidal CO2, satisfactory chest rise 07/24/21 0645 by Jacki Latham AA-C 07/24/21 0805 by Samantha Martin RN Peripheral IV Orientation: Anterio r, Left; Location: Wrist; Gauge: 20 gauge; Insertion Attempts: 1; Patient Tolerance: tolerated well 07/24/21 0651 by Candice Agarwal RN 07/24/21 08 by Samantha Martin RN documented in this encounter Social History Tobacco [...] OR Notes * Anesthesia Postprocedure Evaluation - Jacki Latham AA-C - 07/24/2021 8:14 AM CDT Post Anesthesia Evaluation Vitals: Vitals Value Taken Time BP 125/54 07/24/21 0806 Temp 36.2 ??C 07/24/21 0748 Resp 18 07/24/21 0806 SpO2 99 % 07/24/21 0806 Pulse 75 07/24/21 0806 Heart Rate Pain Rating: Anesthesia Post Evaluation Patient location during evaluation: PACU Patient participation: patient was able to participate in the post op evaluation Level of consciousness: 0 = alert, responsive, answers simple questions appropriately, able to perform simple tasks Pain management: adequate Airway patency: patent Nausea or Vomiting: none Anesthetic complications: no Respiratory status: no respiratory symptoms Hydration status: well hydrated CASANDRA Mathews * Anesthesia Postprocedure Evaluation - Paul De Paz DO - 07/24/2021 8:01 AM CDT Phase II Postanesthesia Evaluation Including Juliy Modified Valerie Score Patient seen and evaluated: Chiquis Modified Valerie Score: Score: 20 (07/24/21749) COMMENTS: No apparent Anesthesia related complications RESPIRATORY FUNCTION: Respiration: able to breath and cough freely (07/24/21 075) [2=able to breathe and cough freely, 1=dyspnea, limited breathing or tachypnea, 0=apnea or mechanicventilator] O2 Saturation: able to maintain O2 saturation greater than 92% on room air (07/24/21749) [2=able to maintain O2 saturation greater than 92% on room air, 1=needs O2 inhalation to maintain O2 saturation greater than 90%, 0=O2 saturation less than 90% even with O2 supplement] Resp: 16 (07/24/21758)SpO2: 99 % (07/24/21758) CARDIOVASCULAR FUNCTION: BP: 124/64 (07/24/21758) Circulation: BP within 20% of preanesthetic level (07/24/21749) [2=BP within 20% of preanesthetic level, 1=BP within 20-49% of preanesthetic level, 0=BP within 50%of preanesthetic level] MENTAL STATUS, NEURO, ACTIVITY: PATIENT PARTICIPATION IN EVALUATIONyes Consciousness: fully awake (07/24/21749) [2=fully awake, 1=arousable on calling, 0=not responding] Activity: able to move 4 extremities voluntarily or on command (07/24/21749) [2=able to move 4 extremities voluntarily or on command, 1=able to move 2 extremities voluntarily or on command, 0=unable to move extremities voluntarily or on command] Ambulation: able to stand up and walk straight, on ordered bedrest, or performing at patient's prior level of function (07/24/21749) [2=able to stand up and walk straight, on ordered bedrest, or performing at patient's prior level of function, 1=vertigo when erect, 0=dizziness when supine] TEMPERATURE: Temp: 36.2 ??C (07/24/21 0748) PAIN: Pain: pain free (07/24/21749) [2=pain free, 1=pain handled by oral medication, 0=pain requiring parenteral medication] NAUSEA AND VOMITING: no nausea and no vomiting Fasting/Feeding: able to drink fluids, ice chips or NPO (07/24/21749) [2=able to drink fluids, ice chips or NPO, 1=nauseated, 0=nausea and vomiting] POSTOPERATIVE HYDRATION: well hydrated Intake/Output Summary (Last 24 hours) at 07/24/2021 0801 Last data filed at 07/24/2021 0755 Gross per 24 hour Intake 840 ml Output -- Net 840 ml Urine Output: has voided, adequate urine output per device, or not applicable (07/24/21 0750) [2=has voided, adequate urine output per device, or not applicable, 1=unable to void but comfortable, 0=unable to void and uncomfortable] WOUND: Dressing: dry and clean or not applicable (07/24/21 0750) [2=dry and clean or not applicable, 1=wet, marked and not increasing, 0=growing area of wetness] Paul De Paz DO 07/24/2021 8:01 AM * Anesthesia Handoff - Jacki Latham AA-C - 07/24/2021 7:50 AM CDT Post-Anesthetic transfer of care report elements [...] acknowledgement of understanding. Vital Signs: BP: (!) 96/36 (07/24/2021 7:48 AM) Pulse: 76 (07/24/2021 7:48 AM) Temp: 36.2 ??C (07/24/2021 7:48 AM) Resp: 16 (07/24/2021 7:48 AM) SpO2: 100 % (07/24/2021 7:48 AM) 7:50 AM CASANDRA Mathews * Anesthesia Preprocedure Evaluation - Paul De Paz DO - 07/24/2021 6:49 AM CDT Relevant Problems CARDIOVASCULAR (+) Hypertension GI (+) GERD (gastroesophageal reflux disease) Anesthesia Evaluation Patient summary reviewed and Nursing notes reviewed Airway Mallampati: II TM distance: >3 FB Neck ROM: full Dental - normal exam (+) natural Pulmonary - normal exam breath sounds clear to auscultation (+) asthma, Cardiovascular - normal exam Exercise tolerance: good (+) hypertension well controlled, valvular problems/murmurs MVP, Rhythm: regular Rate: normal Neuro/Psych (+) psychiatric history GI/Hepatic/Renal (+) GERD well controlled, Endo/Other (+) diabetes mellitus type 2 well controlled, arthritis Abdominal - normal exam Anesthesia History No history of anesthetic complications. Anesthesia Plan ASA Final: 2 General and MAC Intravenous induction Supraglottic airway maintenance NPO status: prep finished 1929. Anesthetic plan and risks discussed with Patient. Plan discussed with Anesthesiologist Android Framework Developer and Surgeon. Post-op Pain Control Plan to use Per surgeon for post-op pain control. Smoking Compliance Patient did not smoke on day of surgery documented in this encounter Plan of Treatment Not on file documented as of this encounter Visit Diagnoses Not on filedocumented in this encounter Administered Medications Inactive Administered Medications - up to 3 most recent administrations Medication Order MAR Action Action Date Dose Rate Site benzocaine PF (HURRICAINE ONE) 20 % spray Mouth/Throat, INTRA-PROCEDURE PRN, Starting on Marina 07/24/21 at 0738, Until Marina 07/24/21 at 0751, Routine, Anesthesia Intra-op Given 07/24/2021 7:38 AM CDT 2 Sprays ketamine (KETALAR) 10 mg/mL injection IV, INTRA-PROCEDURE PRN, Starting on Marina 07/24/21 at 0740, Until Marina 07/24/21 at 0750, Routine, Anesthesia Intra-op Given 07/24/2021 7:40 AM CDT 10 mg lactated ringers infusion IV, at 125 mL/hr, PRE-PROCEDURE CONTINUOUS, Starting on Marina 07/24/21 at 0645, Until Marina 07/24/21 at 1103, Routine, Pre-Procedure Restarted 07/24/2021 7:40 AM CDT Continue from Pre-Op 07/24/2021 7:35 AM CDT 125 mL/hr New Bag 07/24/2021 6:52 AM CDT 125 mL/hr lidocaine 2 % (XYLOCAINE) injection IV, INTRA-PROCEDURE PRN, Starting on Marina 07/24/21 at 0743, Until Marina 07/24/21 at 0750, Routine, Anesthesia Intra-op Given 07/24/2021 7:40 AM CDT 30 mg propofoL (DIPRIVAN) injection IV, INTRA-PROCEDURE PRN, Starting on Marina 07/24/21 at 0740, Until Marina 07/24/21 at 0750, Anesthesia Intra-op Given 07/24/2021 7:43 AM CDT 20 mg Given 07/24/2021 7:41 AM CDT 20 mg Given 07/24/2021 7:40 AM CDT 50 mg documented in this encounter Care Teams Information Security Consultant Relationship Specialty Start Date End Date Jareth Lopez MD [address] [place] [address] PCP - General Family Practice 04/11/13 documented as of this encounter
--- OUTSIDE RECORDS SUMMARY | 2024-09-27 17:39 | XMS_ITS | Encounter Summary ---
Author Organization [facility] Address [address] [place] [address] Care Team Providers Care Remotely Piloted Vehicle Controller Name Role Phone Jareth Lopez MD Primary Care Provider [phone] Encounter Details Date Type Department Care Team (Late st Contact Info) Description 12/04/2022 Abstract [facility] Gastroenterology [facility] [address] [facility] [address] [place] [address] Edmond Gant MD [address] [facility] [address] [place] [address] Social History Tobacco Use Types [...] on filedocumented in this encounter Care Teams Remotely Piloted Vehicle Controller Relationship Specialty Start Date End Date Jareth Lopez MD [address] [place] [address] PCP - General Family Practice 04/11/13 documented as of this encounter
--- OUTSIDE RECORDS SUMMARY | 2024-09-27 17:39 | XMS_ITS | Clinical Summary ---
Author Organization [facility] Address [address] [place] [address] Phone Care Team Providers Care Machine Maintenance Supervisor Name Role Phone Jareth Lopez MD Primary Care Provider [phone] Allergies Active Allergy Reactions Criticality Noted Date Comments Adhesive Other (See Comments) Low 04/11/2013 Blisters Codeine Other (See Comments) 04/11/2013 Respiratory arrest Nickel Other (See Comments) Low 04/11/2013 Sores Ozmit-8-Jtb-Fish Oil Unknown 01/22/2023 Oxycodone Other (See Comments) 03/21/2015 Can tolerate small dose Penicillins Anaphylaxis High 04/11/2013 Sulfa (Sulfonamide Antibiotics) Hives High 04/11/2013 Medications Medication Sig Dispensed Refills Start Date End Date Status triamterene-hydroch lorothiazide (MAXZIDE 25) 37.5-25 mg tablet Take 1 Tab by mouth daily. Active L GASSERI/B BIFIDUM/B LONGUM (Second Funnel HEALTH ORAL) Take by mouth. Active omeprazole (PRILOSEC) 20 mg Capsule, Delayed Release(E.C.) Take 20 mg by mouth daily. Active multivitamin (DAILY-JASPRE) tablet Take 1 Tab by mouth daily. Active POTASSIUM GLUCONATE ORAL Take 595 mg by mouth Daily LATE. Active Cholecalciferol, Vitamin D3, 3,000 unit Tablet Take 2,000 Units by mouth daily. Active MULTIVITAMIN WITH MINERALS (HAIR,SKIN AND NAILS ORAL) Take by mouth. Activ e docusate sodium (COLACE) 100 mg capsule Take 1 Capsule (100 mg) by mouth 2 times daily Take while taking narcotics for pain. 30 Capsule 0 02/07/2016 Active empagliflozin/metfo rmin HCl (SYNJARDY ORAL)Indications:2 a day in the morning Take by mouth. Active metoprolol succinate (TOPROL XL) 50 mg Extended Release 24 hour tablet TAKE 1 TABLET BY MOUTH ONCE DAILY 11/14/2018 Active lipase/protease/prieto lase (CREON ORAL) Take 2 Capsules by mouth 2 times daily. Active pantoprazole (PROTONIX) 40 mg Tablet, Delayed Release (E.C.) Take 40 mg by mouth daily. Active ezetimibe (ZETIA) 10 mg tablet Take 10 mg by mouth daily. Active ALPRAZolam (XANAX) 0.5 mg tablet Take 0.5 mg by mouth nightly as needed for Anxiety. Active Active Problems Problem Noted Date Diagnosed Date [...] disease) 4 Hyperlipidemia 12/05/2013 Elevated LFTs 12/05/2013 Resolved Problems Problem Noted Date Diagnosed Date Resolved Date Pancreas cyst 04/13/2013 01/04/2014 Overview (04/13/2013): Multiple cysts/mucinous neoplasm of the pancreatic head less than 2 cm being observed with serial endoscopic ultrasound Immunizations Name Administration Dates Next Due Influenza Seasonal Unspecified Formulation IM Family History Medical History Relation Name Comments Healthy Father Other Father blood poisoning Cancer Maternal Aunt 1 colon Cancer Maternal Aunt 2 leukemia Lung Cancer Maternal Aunt 3 Lung Cancer Maternal Grandfather Lung Cancer Mother Colon Cancer Neg Hx Relation Name Status Comments Father Maternal Aunt 1 Maternal Aunt 2 Maternal Aunt 3 Maternal Grandfather Mother Social History Tobacco Use Types Packs/Day Years Used Date Smoking Tobacco: Never Smokeless Tobacco: Never Alcohol Use Standard Drinks/Week Comments Not Currently 0 (1 standard drink = 0.6 oz pur e alcohol) rarely Sex and Gender Information Value Date Recorded Sex Assigned at Not on file Gender Identity Not on file Sexual Orientation Not on file Last Filed Vital Signs Vital Sign Reading Time Taken Comments Blood Pressure 137/73 01/22/2023 9:07 AM CDT Pulse 73 01/22/2023 9:07 AM CDT Temperature 36.2 ??C (97.1 ??F) 07/24/2021 7:48 AM CD T Respiratory Rate 18 07/24/2021 8:06 AM CDT Oxygen Saturation 99% 07/24/2021 8:06 AM CDT Inhaled Oxygen Concentration - - Weight 68 kg (150 lb) 01/22/2023 9:07 AM CDT Height 160 cm (5' 3 ) 01/22/2023 9:07 AM CDT Body Mass Index 26.57 01/22/2023 9:07 AM CDT Plan of Treatment Health Maintenance Due Date Last Done Comments PNEUMOCOCCAL VACCINE 65+ YEA RS (1 of 2 - PCV) 12/08/1957 DIABETES ANNUAL FOOT EXAM 12/08/1969 DIABETES ANNUAL RETINAL EXAM 12/08/1969 DIABETES HBA1C Q 6 MONTHS 12/08/1969 DIABETES MICROALBUMIN ANNUAL SCREEN 12/08/1969 LDL CHOLESTEROL ANNUAL 12/08/1969 BREAST CANCER SCREENING 1991 FIT-DNA Q 3 years 12/08/1996 FIT/FOBT Q 1 year 12/08/1996 Flex Sig/CT Colonography Q 5 years 12/08/1996 ZOSTER VACCINE (1 of 2) 12/08/2001 RSV VACCINE (60+ or ) (1 - Risk 60-74 years 1-dose series) 2011 OSTEOPOROSIS SCREENING 12/08/2016 INFLUENZA VACCINE (#1) 2024 08/04/2015 COLORECTAL SCREENING 04/24/2026 04/24/2021, 04/24/2021, 04/11/2018, Additional history exists Colorectal Cancer Screening 04/24/2026 DTAP/TDAP/TD VACCINES (2 - T d or Tdap) 04/19/2030 04/19/2020 Medical Devices Implanted Type Area Filler Sifter Machine Device Identifier Shelf Expiration Date Model / Serial / Lot Tube Feed Odessa [id number] - [id number] Implanted:Qty : 1 on 12/04/2013 by Andi Marley MD at [facility] Feeding Device [employer]IFF- [employer] [place] [id number] / / [id number] Description:used as stent in duct Mesh Proceed Med Pvpm - Spvpm Implanted:Qty : 1 on 02/07/2016 by Andi Marley MD at [facility] Mesh N/A: Abdomen J[employer]J- [employer] 06/03/2017 PVPM / PVPM / [id number] Sealant Floseal W/ Adptr 10ml [id number] - [id number] Implanted:Qty : 1 on 03/29/2015 by Truman Streeter MD at [facility] Sealant Left: Spine Lumbar Kibin- [employer] 06/03/2016 [id number] / / [id number] Procedures Procedure Name Priority Date/Time Associated Diagnosis Comments COLONOSCOPY REPORT 04/24/2021 12 :19 PM CDT from Last 3 Months or Most Recently Relevant to Health Maintenance Results * COLONOSCOPY REPORT (04/24/2021 12:19 PM CDT) Narrative Procedure Note Edmond Gant MD - 04/24/2021 12:19 PM CDT [facility] Endoscopy Patient Name: Elena Fernández Procedure Date: [...] Number of Addenda: [address]; [place] [address] Edmond Gant MD GI PROCEDURE ORDERAB LES from Last 3 Months or Most Recently Relevant to Health Maintenance Advance Directives For more information, please contact: [phone] * Full Code (Latest Code Status on File) Date Activated Date Inactivated Comments 04/11/2018 6:39 AM 04/11/2018 11:04 AM * Full Code Date Activated Date Inactivated Comments 02/07/2016 12:44 PM 02/07/2016 6:39 PM * Full Code Date Activated Date Inactivated Comments 02/07/2016 8:43 AM 02/07/2016 12:44 PM * Full Code Date Activated Date Inactivated Comments 03/29/2015 11:14 AM 03/29/2015 4:32 PM * Full Code Date Activated Date Inactivated Comments 03/29/2015 9:16 AM 03/29/2015 11:14 AM Care Teams Machine Maintenance Supervisor Relationship Specialty Start Date End Date Jareth Lopez MD [address] [place] [address] PCP - General Family Practice 04/11/13
--- OUTSIDE RECORDS SUMMARY | 2024-09-27 17:39 | XMS_ITS | Clinical Summary ---
Author Organization [facility] Address [address] [place] [address] Care Team Providers Care Certified Marine Mechanic Name Role Phone Jareth Lopez MD Primary Care Provider [phone] Source Comments [facility],non-owned Affiliates and Associated Physician Practices is amultiple site organization consisting of ambulatory clinics and hospital sitesin [place], [place], [place] and [place]. This disclosure is being madepursuant to the Care Everywhere program and may not contain all information available regarding this patient. Last updated 18.[facility] Allergies Active Allergy Reactions Criticality Noted Date Comments Codeine Shortness of Breath 08/14/2011 Penicillins Shortness of Breath 08/14/2011 Sulfa Drugs Skin Reactions 08/14/2011 Active Problems Problem Noted Date Diagnosed Date Other specified disorders of nose and nasal sinu ses 06/21/2012 Dysphonia 02/16/2012 Allergic rhinitis 08/14/2011 Chronic maxillary sinusitis 08/14/2011 Immunizations Name Administration Dates Next Due TDAP (7yrs+) 04/19/2020 Family History Medical History Relation Name Comments Cancer Mother Relation Name Status Comments Mother Social History Tobacco Use Types Packs/Day Years Used Date Smoking Tobacco: Never Smokeless Tobacco: Never Alcohol Use Standard Drinks/Week Comments No 0 (1 standard drink = 0.6 oz pur e alcohol) Sex and Gender Information Value Date Recorded Sex Assigned at Not on file Gender Identity Not on file Sexual Orientation Not on file Plan of Treatment Health Maintenance Due Date Last Done Comments BONE DENSITY TESTING 1950 COLOGUARD (AGES 45-75) - COL ON CA SCREENING 1950 COLON MONITORING 1950 COLONOSCOPY - COLON CA SCREENING 1950 CT COLONOGRAPHY - COLON CA SCREENING 1950 Colorectal Cancer Screening 1950 FIT - COLON CA SCREENING 1950 FLEX SIG - COLON CA SCREENING 1950 LIPID TESTING 1950 MAMMOGRAM 1950 HEPATITIS C SCREENING 12/04/1969 ZOSTER VACCINE (1 of 2) 12/08/2001 PNEUMOCOCCAL VACCINE 65+ (1 of 1 - PCV) 12/08/2016 DEPRESSION SCREENING 10/04/2023 COVID-19 VACCINE ( - 2023-2 5 season) 2024 INFLUENZA VACCINE (#1) 2024 08/04/2015 Respiratory Syncytial Virus (RSV) Vaccine Pt: or over 60 yrs (1 - 1-dose 75+ series) 12/08/2026 DTAP/TDAP/TD VACCINES (2 - T d or Tdap) 04/19/2030 04/19/2020 HEPATITIS B VACCINE Aged Out No longe r eligible based on patient's age to complete this topic HIB VACCINE Aged Out No longer eligi ble based on patient's age to complete this topic HPV VACCINE Aged Out No longer eligi ble based on patient's age to complete this topic MENINGOCOCCAL VACCINE Aged Out No nathanael kenji eligible based on patient's age to complete this topic Care Teams Certified Marine Mechanic Relationship Specialty Start Date End Date Jareth Lopez MD [address] [place] [address] PCP - General 05/31/09
--- OUTSIDE RECORDS SUMMARY | 2024-09-27 17:39 | XMS_ITS | Encounter Summary ---
Author Organization [facility] Address [address] [place] [address] Care Team Providers Care Prosthetic Dentist Name Role Phone Jareth Lopez MD Primary Care Provider [phone] Encounter Details Date Type Department Care Team (Late st Contact Info) Description 04/19/2020 10:00 AM CDT Office Visit [facility] [address] [place] [address] Provider, Joie Exp Nameokcydney Encounter for vaccination (Primary Dx) Social History Tobacco Use Types Packs/Day Years [...] as of this encounter Progress Notes * Megan Reed APRN-CNP - 04/19/2020 10:10 AM CDT Patient here for TDaP vaccine today. Patient stepped on a nail, and was instructed by physician to receive a TdaP vaccination. Allergies reviewed. Vaccine consent signed, reviewed with patient, and scanned into record. Education materials provided to patient. Patient tolerated well. Megan Reed APRN, MEAT BUTCHER-C documented in this encounter Plan of Treatment Not on file documented as of this encounter Visit Diagnoses Diagnosis Encounter for vaccination- Primary documented in this encounter Care Teams Prosthetic Dentist Relationship Specialty Start Date End Date Jareth Lopez MD [address] [place] [address] PCP - General 05/31/09 documented as of this encounter
--- OUTSIDE RECORDS SUMMARY | 2024-09-27 17:39 | XMS_ITS | Clinical Summary ---
Author Organization [facility] Care Team Providers Care Body Maker Machine Setter Name Role Phone Unavailable Primary Care Provider Unavailabl e Allergies Active Allergy Reactions Criticality Noted Date Comments Adhesive Tape Unknown Codeine Sulfate Unknown Other Unknown metals Penicillins Unknown Sulfa Antibiotics Unknown Medications methylcellulose (CITRUCEL) 500 MG Tablet daily. Active Multiple Vitamin (MULTI-VITAMIN) Tablet daily. Active Calcium Carbonate-Vit D-Min (CALTRATE 600+D PLUS MINERALS) 600-800 MG-UNIT Chewable Tablet daily. Active Probiotic Product (Brightkit) Capsule daily. Acti ve Ginkgo Biloba 120 MG Tablet daily. Active Omeprazole Magnesium (PRILOSEC OTC) 20 MG Tablet Delayed Response daily. Active Nutritional Supplements (ESTROVEN MAXIMUM STRENGTH) Tablet daily. Act chepe triamterene-hydro chlorothiazide (MAXZIDE) 37.5-25 MG Tablet daily. Active Choline Fenofibrate (TRILIPIX) 135 MG CAPSULE DELAYED RELEASE daily. Active metFORMIN (GLUCOPHAGE-XR) 500 MG TABLET SR 24 HR daily. Active Active Problems Problem Noted Date Diagnosed Date DM (diabetes mellitus) Disease of pancreas Pancreatic disorder Overview (08/26/2015): Pancreatic cyst IPMN Pancreatic neoplasm Pancreatic cyst Social History Tobacco Use Types Packs/Day Years Used Date Smoking Tobacco: Never Assessed Comments Unknown Sex and Gender Information Value Date Recorded Sex Assigned at Not on file Legal Sex Female 7:14 PM CDT Gender Identity Not on file Sexual Orientation Not on file Plan of Treatment Health Maintenance Due Date Last Done Comments DEXA Bone Density 1950 Diabetes: Eye Exam 1950 Diabetes: Foot Exam 1950 Diabetes: Hemoglobin A1c 1950 Hepatitis C Virus (HCV) Screening 1950 TdaP Immunization 1950 Pneumococcal Immunization (5 0+ years) (1 of 2 - PCV) 12/08/1957 Diabetes: Nephropathy Screening 12/08/1969 Cologuard 12/08/2001 Immunochemical Fecal Occult Blood 12/08/2001 Mammogram 12/08/2001 Zoster Immunization (1 of 2) 12/08/2001 SARS-COV-2 Immunization ( - season) 2023 Influenza Immunization (Seas on Ended) 2024 Colonoscopy 08/03/2024 08/03/2014 Colorectal Cancer Screening 08/03/2024 08/03/2014 Hepatitis B Immunization Aged Out No longer eligible based on patient's age to complete this topic Meningococcal Immunization (ACWY) Aged Out No longer eligible based on patient's age to complete this topic Rotavirus Immunization Aged Out No lo nger eligible based on patient's age to complete this topic Procedures Procedure Name Priority Date/Time Associated Diagnosis Comments COLONOSCOPY Routine 08/03/2014 from Last 3 Months or Most Recently Relevant to Health Maintenance Results * HM COLONOSCOPY (08/03/2014) us Jarethsrinath Lopez MD PROCEDURE/MINOR SURGICAL ORDE AMANDA Final Result from Last 3 Months or Most Recently Relevant to Health Maintenance
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
--- OUTSIDE RECORDS SUMMARY | 2024-09-27 17:39 | XMS_ITS | Encounter Summary ---
Author Organization [facility] Address [address] [place] [address] Attn: Epic Prelude ADT LOLA RIVERA [address] Care Team Providers Care Woodyard Crane Operator Name Role Phone Jareth Lopez MD Primary Care Provider [phone] Encounter Details Date Type Department Care Team (Latest Contact Info) Description 07/23/2021 Travel Social History Tobacco Use Types Packs/Day [...] have Coronavirus / COVID-19? No / Unsure 07/23/2021 8:50 AM CDT documented as of this encounter Plan of Treatment Not on file documented as of this encounter Visit Diagnoses Not on filedocumented in this encounter Care Teams Woodyard Crane Operator Relationship Specialty Start Date End Date Jareth Lopez MD [address] [place] [address] PCP - General Family Practice 04/11/13 documented as of this encounter
--- OUTSIDE RECORDS SUMMARY | 2024-09-27 17:39 | XMS_ITS | Encounter Summary ---
Author Organization [facility] Address [address] [place] [address] Attn: Epic Prelude ADT [place] [address] Care Team Providers Care Communication Center Operator Name Role Phone Jareth Lopez MD Primary Care Provider Encounter Details Date Type Department Care Team (Latest Contact Info) Description 07/24/2021 Travel Social History Tobacco Use Types Packs/Day [...] on filedocumented in this encounter Care Teams Communication Center Operator Relationship Specialty Start Date End Date Jareth Lopez MD [address] [place] [address] PCP - General Family Practice 04/11/13 documented as of this encounter
--- OUTSIDE RECORDS SUMMARY | 2024-09-27 17:39 | XMS_ITS | Encounter Summary ---
Author Organization [facility] Address [address] [place] [address] Care Team Providers Care Science Job Titles Name Role Phone Jareth Lopez MD Primary Care Provider Encounter Details Date Type Department Care Team (Late st Contact Info) Description 10/30/2023 External Device Data STL ABSTRACTION Provider, Abstract [...] on filedocumented in this encounter Care Teams Science Job Titles Relationship Specialty Start Date End Date Jareth Lopez MD [address] [place] [address] PCP - General Family Practice 04/11/13 documented as of this encounter
--- OUTSIDE RECORDS SUMMARY | 2024-09-27 17:39 | XMS_ITS | Encounter Summary ---
Author Organization [facility] Address [address] [place] [address] Care Team Providers Care Kardex Clerk Name Role Phone Jareth Lopez MD Primary Care Provider Reason for Visit * Reason Comments Follow Up Encounter Details Date Type Department Care Team (Latest Contact Info) Description 01/22/2023 9:00 AM CDT Office Visit [facility] Gastroenterology [address] [address] Edmond Gant MD [address] [place] [phone] Acute blood loss anemia (Primary Dx) Social History Tobacco Use Types [...] Pulse 73 01/22/2023 9:07 AM CDT Temperature - - Respiratory Rate - - Oxygen Saturation - - Inhaled Oxygen Concentration - - Weight 68 kg (150 lb) 01/22/2023 9:07 AM CDT Height 160 cm (5' 3 ) 01/22/2023 9:07 AM CDT Body Mass Index 26.57 01/22/2023 9:07 AM CDT documented in this encounter Progress Notes * Edmond Gant MD - 01/22/2023 9:57 AM CDT [facility] Gastroenterology - Advanced Endoscopy Office Note- Edmond Gant M.D. Patient: Elena Fernández / 72 y.o. / female : 1950 Date: 01/22/2023 CSN: [id number] PCP: Jareth Lopez MD Impression/Plan: Anemia. Unclear etiology however responding to blood transfusion during hospitalization with stableblood counts. She is up-to-date on colonoscopy. Will not pursue at this time unless there is signs of lack of response/drop in her hemoglobin levels. Suspect was an upper GI related source or non-GI related source. We will follow clinically. If any significant drop in hemoglobin levels will consider repeat endoscopic evaluations. Otherwise due for colonoscopy in 2025. History of Present Illness: Elena Fernández is a 72 y.o. female Here for follow-up recent hospitalization at [facility] secondary to oropharyngeal pain thought secondary to medication allergy. Significant reflux related to the oral pharyngeal pain. Underwent upper endoscopy which overall showed mild reactive changes but was otherwise unremarkable. Also noted to have significant anemia requiring blood transfusion. Her blood counts per report have returned to normal levels. No visible blood per rectum. Denies melena. She states she feels was upper related noting a metallic taste within her mouth she thought secondary to blood. She is up-to-date on colonoscopy. She has had colon polyps but colonoscopy was within the past 2 years with a good bowel prep. Upper endoscopy performed at that time. She does have surgical anatomy with history of a Whipplesurgery. She reports overall she is doing well. Denies complaints. No issues with nausea or vomiting or bowel habit changes. Review of Systems: See also HPI. 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 MVP (mitral valve prolapse) does not cause CP/SOB Temporomandibular joint disorder wears border guard Past Surgical History: Procedure Laterality Date CHG ANES COLONOSCOPY,DIAGNOSTIC CHG ANESTH,DX ARTHROSCOPIC PROC KNEE JOINT right ENDOSCOPY, GI HX APPENDECTOMY HX SECTION 1971 1976 HX CYST REMOVAL Left index and pointer finger HX EYE SURGERY age 5 cross eyed/glaucoma HX FOOT SURGERY Bilateral four different surgeries HX HERNIA INCISIONAL REPAIR N/A 02/07/2016 HERNIA VENTRAL INCISIONAL REPAIR performed by Andi Marley MD at [facility] OR [facility] LUMBAR DISKECTOMY Left 03/29/2015 SPINAL MICRODISCECTOMY MINIMALLY INVASIVE - LEFT L5-S1 M.I. DISCECTOMY performed by Truman Streeter MD at [facility] OR [facility] HX SINUS SURGERY HX TONSILLECTOMY age 6 GA COLONOSCOPY FLX DX W/COLLJ SPEC WHEN PFRMD N/A 04/11/2018 COLONOSCOPY performed by Edmond Gant MD at [facility] GI LAB GA COLONOSCOPY FLX DX W/COLLJ SPEC WHEN PFRMD N/A 04/24/2021 COLONOSCOPY performed by Edmond Gant MD at [facility] GI LAB GA ESOPHAGOGASTRODUODENOSCOPY TRANSORAL DIAGNOSTIC N/A 04/11/2018 ESOPHAGOGASTRODUODENOSCOPY performed by Edmond Gant MD at [facility] GI LAB GA ESOPHAGOGASTRODUODENOSCOPY TRANSORAL DIAGNOSTIC N/A 07/24/2021 ESOPHAGOGASTRODUODENOSCOPY performed by Edmond Gant MD at [facility] GI LAB GA PNCRTECT WHIPPLE W/O PANCREATOJEJUNOSTOMY 12/04/2013 WHIPPLE performed by Andi Marley MD at [facility] OR [facility] Family History Problem Relation Name Age of Onset Healthy Father Other Father blood poisoning Lung Cancer Mother Lung Cancer Maternal Grandfather Cancer Maternal Aunt colon Cancer Maternal Aunt leukemia Lung Cancer Maternal Aunt Colon Cancer Neg Hx Social History Socioeconomic History Marital status: Spouse name: Not on file Number of children: Not on file Years of education: Not on file Highest education level: Not on file Occupational History Employer: [employer] Tobacco Use Smoking status: Never Smokeless tobacco: Never Vaping Use Vaping Use: Never used Substance and Sexual Activity Alcohol use: Not Currently Comment: rarely Drug use: No Sexual activity: Not on file Other Topics Concern Not on file Social History Narrative Not on file Social Determinants of Health Financial Resource Strain: Not on file Food Insecurity: Not on file Transportation Needs: Not on file Social Connections: Not on file Intimate Partner Violence: Not on file Housing Stability: Not on file (Not in a hospital admission) Allergies Allergen Reactions Penicillins Anaphylaxis Sulfa (Sulfonamide Antibiotics) Hives Codeine Other (See Comments) Respiratory arrest [id number]-Fish Oil Unknown Oxycodone Other (See Comments) Can tolerate small dose Adhesive Other (See Comments) Blisters Nickel Other (See Comments) Sores TOBACCO COUNSELING She is not a tobacco user. Physical Exam: General appearance: alert, oriented x 3, in no distress. Head: - icterus. EOM's intact. Lungs: normal respiratory effort Heart: normal rate Abdomen: Soft, non tender, non distended. - guarding. Skin: Skin color without jaundice. Neurologic: Grossly normal 30 minutes were spent in the care of this patient in direct contact including interview, exam, and over 50% counseling. I discussed risks, benefits, alternatives and complications of endoscopic procedure as above including the possibility of dilatation, biopsy, injection, cautery, and polypectomy, stent placement in detail with the patient. Risks informed and discussed included but not limited to risks of conscious sedation, risks of infection, perforation, intraprocedural and post procedural bleeding, adverse drug reaction, missed identification of polyps and aspiration. The patient understood the risks, benefits, alternatives and complications and consented for the procedure. Thank you for allowing me to participate in the care of your patient. If I can provide any additional information or further assistance, please do not hesitate to call. This note was transcribed using [employer] speaking computerized voice recognition without a human spectroscopist. This report may or may not have been adjusted for typographical, grammaticaland syntax errors. Edmond Gant MD Advanced Endoscopy, EUS/ERCP Office: documented in this encounter Plan of Treatment Not on file documented as of this encounter Visit Diagnoses Diagnosis Acute blood loss anemia- Primary Acute posthemorrhagic anemia documented in this encounter Care Teams Kardex Clerk Relationship Specialty Start Date End Date Jareth Lopez MD [address] [place] [address] PCP - General Family Practice 04/11/13 documented as of this encounter
--- OUTSIDE RECORDS SUMMARY | 2024-09-27 17:39 | XMS_ITS | Encounter Summary ---
Author Organization [facility] Address [address] [place] [address] Care Team Providers Care Bark Scaler Name Role Phone Jareth Lopez MD Primary Care Provider Encounter Details Date Type Department Care Team (Late st Contact Info) Description 12/30/2020 Orders Only [facility] - COVID Vax [address] [place] [address] Sanjay Dinh MD [address] [facility] [address] [place] [address] Need for vaccination Social History Tobacco Use Types Packs/Day Years [...] as of this encounter Visit Diagnoses Diagnosis Need for vaccination Need for prophylactic vaccination and inoculation against unspecified single disease documented in this encounter Care Teams Bark Scaler Relationship Specialty Start Date End Date Jareth Lopez MD [address] [place] [address] PCP - General 05/31/09 documented as of this encounter
--- OUTSIDE RECORDS SUMMARY | 2024-09-27 17:39 | XMS_ITS | Encounter Summary ---
Author Organization [facility] Address [address] [place] [address] Care Team Providers Care Jig And Fixture Builder Apprentice Name Role Phone Jareth Lopez MD Primary Care Provider [phone] Encounter Details Date Type Department Care Team (Late st Contact Info) Description 10/29/2023 External Device Data [facility] ABSTRACTION Provider, Abstract [...] on filedocumented in this encounter Care Teams Jig And Fixture Builder Apprentice Relationship Specialty Start Date End Date Jareth Lopez MD [address] [place] [address] PCP - General Family Practice 04/11/13 documented as of this encounter
--- OUTSIDE RECORDS SUMMARY | 2024-09-27 17:40 | XMS_ITS | Encounter Summary ---
Author Organization [facility] Address [address] [place] [address] Care Team Providers Care Smoking Pipe Coater Name Role Phone Jareth Lopez MD Primary Care Provider Encounter Details Date Type Department Care Team (Late st Contact Info) Description 12/29/2017 Orders Only [facility] [address] [facility] [address] [place] [address] Edmond Gant MD [address] [place] [address] Social History Tobacco Use Types Packs/Day Years Used Date Smoking Tobacco: Never Smokeless Tobacco: Never Alcohol Use Standard Drinks/Week Comments Yes 0 (1 standard drink = 0.6 oz pur e alcohol) rarely Sex and Gender Information Value Date Recorded Sex Assigned at Not on file Gender Identity Not on file Sexual Orientation Not on file documented as of this encounter Plan of Treatment Not on file documented as of this encounter Visit Diagnoses Not on filedocumented in this encounter Care Teams Smoking Pipe Coater Relationship Specialty Start Date End Date Jareth Lopez MD [address] [place] [address] PCP - General Family Practice 04/11/13 documented as of this encounter
--- OUTSIDE RECORDS SUMMARY | 2024-09-27 17:40 | XMS_ITS | Encounter Summary ---
Author Organization [facility] Address [address] [place] [address] Care Team Providers Care Marketing Senior Recruiter Name Role Phone Jareth Lopez MD Primary Care Provider Reason for Visit * Auth/Cert Specialty Diagnoses / Procedures Referred By Contac t Referred To Contact General Surgery Diagnoses Ventral incisional hernia Procedures HERNIA VENTRAL REPAIR [facility] Or [address] [place] [address] Referral ID Status Reason Start Date Expiration Date Visits Re quested Visits Authorized [id number] 1 1 Encounter Details Date Type Department Care Team (Late st Contact Info) Description 02/07/2016 11:15 AM CDT - 02/07/2016 12:45 PM CDT Surgery [facility] Operating Room [address] [place] [address] Andi Marley MD [address] [facility] [address] [place] [address] HERNIA VENTRAL INCISIONAL REPAIR Surgery Details Date/Time Status Location OR Service Patient Class Case Class Case Type Trauma Case? 02/07/2016 11:[address] OR MAIN OR 12 General Surgery Surgical OP/Extended Care Elective No Panel 1 Procedure LRB Anes Op Region Wound Class Comments HERNIA VENTRAL INCISIONAL REPAIR N/A General Abdomen Clean-I Surgeon Surgeon Role Service Panel Andi Marley MD Primary General Surgery 1 documented in this encounter Social History [...] on file documented as of this encounter Last Filed Vital Signs Vital Sign Reading Time Taken Comments Blood Pressure 109/61 02/07/2016 12:45 PM CDT Pulse 73 02/07/2016 12:45 PM CDT Temperature 36.8 ??C (98.3 ??F) 02/07/2016 12:42 PM C DT Respiratory Rate 8 02/07/2016 12:45 PM CDT Oxygen Saturation 100% 02/07/2016 12:45 PM CDT Inhaled Oxygen Concentration - - Weight 76 kg (167 lb 8 oz) 02/07/2016 8:41 AM CD T Height 160 cm (5' 3 ) 01/27/2016 3:10 PM CDT Body Mass Index 29.67 01/27/2016 3:10 PM CDT documented in this encounter Discharge Instructions * Discharge Instructions* Renea Cary RN - 02/07/2016 3:48 PM CDT POSTOPERATIVE INSTRUCTIONS AFTER ABDOMINAL SURGERY 1. You may resume a regular diet as soon as tolerated. Small frequent meals to begin with may be tolerated easier in the early postoperative stage. Increase at your own pace. 2. The patient may experience either constipation or diarrhea after surgery and this may be caused by anesthesia, pain medications or reaction to surgery. This is not uncommon. The patient may take any ahhd-qzl-nzwaskr medication(s) that have worked previously to correct the situation of diarrhea or constipation. Suggestions are: Milk of Magnesia, Dulcolax tablets or suppositories as directed forconstipation. Also increasing fluids such as water, juices, etc. will help with elimination. Suggestions for diarrhea include Pepto-Bismol and Imodium AD as directed for diarrhea. Also drinking Gatorade and BRAT diet (bananas, rice, applesauce, toast) may help to alleviate and correct some of the side effects of diarrhea. 3. The patient may shower 48 hours after surgery. The patient may remove the dressing at this time.The dressing may be replaced if the patient desires or left off. This is strictly the choice of thepatient. Suggestion: Some patients state a light dressing to the incisional area(s) (which may drain) is more comfortable if clothing at the incision site(s) rubs or irritates. If the patient observes Steri-strips (small strips of textured adhesive tape at the incisions or over sutures), please leave intact. The patient may get them wet in the shower and pat dry. The sutures or niya (if the patient has sutures of niya) should be left intact. 4. The patient needs to call the office for postoperative appointment ([phone]). The patient will need to be seen in the office 1-2 weeks after the surgery date. Please call ahead for appointment. At the time of postoperative office visit, physical activity/work release will be discussed and release forms given. 5. The patient may resume activity slowly. The patient may not engage in strenuous activity or heavy lifting (>10lbs) until cleared by physician, which can be discussed at postoperative appointment. However, the patient should listen to their body in response to certain activities. Gradually increase activities at a comfortable individual pace. There are no restrictions regarding stairs, however, the patient should be cautious initially and advance slowly. 6. The patient may resume driving when not taking pain medication which may impair judgment and response during driving. The patient should also feel capable of having physical strength and capability to respond quickly to any situation which may occur while driving. 7. The patient may use ice to incisional sites postoperatively to decrease pain and/or swelling on days 1 to 3. It is not at all uncommon for patients to have swelling and bruising at incision(s), which may extend to genital areas. 8. 9. The patient may experience some drainage from the incisions, which is not uncommon. If patient experiences a small amount of bloody drainage, ice to the area should alleviate this. Any other drainage may be due to normal body response which a light dressing can be applied and changed as needed. The patient may also experience slight redness at incision ends where a suture may be noted. These areas can be cleaned a few times per day with Hydrogen Peroxide and a Q-tip. Bruising at these sites is not uncommon. 10. Please contact the office should you develop any problems such as prolonged nausea/vomiting, temperature elevations above 101.5 or other difficulties. These recommendations are suggested for otherwise healthy postoperative patients without underlyinghealth problems. Please call if there are any concerns or questions. SAFETY For the next 24 hours, you may feel sleepy due to medicines used during your procedure. For the next 24 hour period or while you are on pain medication, DO NOT make any important decisions or sign any important papers. DO NOT drink any alcoholic beverages, including beer. DO NOT drive a car or operate machinery and power tools. For your safety and protection, we strongly recommend that a responsible adult be with you today and throughout the night. Medication Pain Medication Percocet given at 3:45pm. Next dose due at 7:45pm, if needed. ADDITIONAL INFORMATION Once you are home, if you develop any of the following symptoms, call your physician. Difficulty in breathing, persistent nausea or vomiting, pain that is unusual, excessive swelling orredness at incision site, trouble swallowing, temperature greater than 101 degrees, excessive bleeding at incision site. If you cannot contact your physician, call or come to the Emergency Room at [facility] ([phone]) or the nearest Emergency Room. In an emergency, Call 911. documented in this encounter Medications at Time of Discharge Medication Sig Dispensed Refills Start Date End Date docusate sodium (COLACE) 100 mg capsule Take [...] tablet Take 1 Tab by mouth daily. triamterene-hydrochlor othiazide (MAXZIDE 25) 37.5-25 mg tablet Take 1 Tab by mouth daily. L GASSERI/B BIFIDUM/B LONGUM (Cernium ORAL) Take by mouth. cyclobenzaprine (FLEXERIL) 10 mg tablet Take 1 Tablet (10 mg) by mouth 3 times daily as needed for Pain or Spasm. 20 Tablet 0 02/07/2016 12/15/2016 oxyCODONE-acetaminophe n (PERCOCET) 5-325 mg tablet Take 1-2 Tablet by mouth every 4 hours as needed for Pain. Max Daily Amount: 12 Tablet 30 Tablet 0 02/07/2016 03/17/2016 docusate sodium (COLACE) 100 mg capsule Take 100 mg by mouth 2 times daily as needed for Constipation. 04/16/2021 documented as of this encounter H&P Notes * Andi Marley MD - 02/07/2016 10:56 AM CDT Subjective:?? 65-year-old female follows up for her pancreatic adenocarcinoma resected 2 years ago. She has a continued bulge in the center of her abdomen at her incision. She has no nausea or vomiting. Her bowel movements are normal in color. She has been gaining some weight. The bulge in her abdomen becomes more prominent when she stands or lifts something heavy. There is mild pain which is a 3 on scale of 1- 10 and does not radiate. She has no trouble with micturition ? Patient Active Problem List? Diagnosis?? Date Noted? Incisional hernia?? 12/26/2015? Pancreatic adenocarcinoma?? 01/04/2014? Overview Note:? Found incidentally at the time of her Whipple pathology. Tumors were small in the setting of a intraductal papillary mucinous neoplasm and no further adjuvant therapy is needed. She will need ascreening CAT scan every 6 months for 2 years to be sure there is no sign of recurrence ? Electrolyte imbalance?? 12/06/2013? Hypertension?? 12/05/2013? Diabetes mellitus?? 12/05/2013? GERD (gastroesophageal reflux disease)?? 12/05/2013? Hyperlipidemia?? 12/05/2013? Elevated LFTs?? 12/05/2013?? Past Medical History Past Medical History?? Diagnosis?? Date? Diabetes mellitus? Gastrointestinal disorder? diverticulitis? Heart disease, unspecified? MVP? Arthritis? Hyperlipidemia? Diverticulitis? GERD (gastroesophageal reflux disease)? patient denies? Cancer? Pancrease? Past Surgical History Past Surgical History?? Procedure?? Laterality?? Date? Hx eye surgery? age 5? cross eyed/glaucoma? Hx appendectomy? Hx section? 1972 1977? Hx sinus surgery? Hx foot surgery?? Bilateral? four different surgeries? Hx tonsillectomy? age 6? Hx cyst removal?? Left? index and pointer finger? Chg anesth,dx arthroscopic proc knee joint? right? Endoscopy, gi? Chg colonoscopy,diagnostic? Pr part remv panc,prox+remv duod? 12/04/2013? WHIPPLE?? performed by Andi Marley MD at [facility] OR [facility]? Hx lumbar diskectomy?? Left?? 03/29/2015? SPINAL MICRODISCECTOMY MINIMALLY INVASIVE - LEFT L5-S1 M.I. DISCECTOMY performed by Truman Streeter MD at [facility] OR [facility]? Prescriptions Prior to Admission (Not in a hospital admission) Allergies?? Allergen?? Reactions? Adhesive?? Other (See Comments)? Blisters? Codeine?? Other (See Comments)? Respiratory arrest? Nickel?? Other (See Comments)? Sores? Oxycodone?? Other (See Comments)? Can tolerate small dose? Penicillins?? Anaphylaxis? Respiratory distress? Sulfa (Sulfonamide Antibiotics)?? Hives? Internal and external hives? History?? Substance Use Topics? Smoking status:?? Never Smoker ? Smokeless tobacco:?? Not on file? Alcohol Use:?? No? Family History Family History?? Problem?? Relation?? Age of Onset? Healthy?? Father? Other?? Father? blood poisoning? Lung Cancer?? Mother? Lung Cancer?? Maternal Grandfather? Cancer?? Maternal Aunt? colon? Cancer?? Maternal Aunt? leukemia? Lung Cancer?? Maternal Aunt? Review of Symptoms Head-no headaches or recent trauma Eyes-no eye pain or blurred vision Ears, nose, throat-no tinnitus epistaxis or dysphasia Endocrine-no intolerance to heat or cold, no polyuria or polydipsia Cardiac-no chest pain or palpitations Pulmonary-no cough hemoptysis or recent bouts of pneumonia GI-no constipation diarrhea -no dysuria frequency or hematuria Heme/lymph-no difficulty finding off infections no episodes of bruising easily Skin-no abnormal rashes or lesions Neurologic-no history of stroke or seizures Psychiatric-no suicidal ideation no major depressive episodes requiring hospitalization ? Objective:?? BP 126/75 mmHg Pulse 105 Resp 20 Ht 5' 3 (1.6 m) Wt 76.658 kg (169 lb) BMI 29.94 kg/m2 General: ?? Alert, cooperative, no distress, appears stated age.?? Head: ?? Normocephalic, without obvious abnormality, atraumatic.?? Eyes: ?? Conjunctivae/corneas clear. PERRL, EOMs intact. Fundi benign.?? Ears: ?? Normal TMs and external ear canals both ears.?? Nose:?? Nares normal. Septum midline. Mucosa normal. No drainage or sinus tenderness.?? Throat:?? Lips, mucosa, and tongue normal. Teeth and gums normal.?? Neck:?? Supple, symmetrical, trachea midline, no adenopathy, thyroid: no enlargment/tenderness/nodules, no carotid bruit and no JVD.?? Back:? Symmetric, no curvature. ROM normal. No CVA tenderness.?? Lungs:? Clear to auscultation bilaterally.?? Chest wall: ?? No tenderness or deformity.?? Heart: ?? Regular rate and rhythm, S1, S2 normal, no murmur, click, rub or gallop.?? Abdomen:? Soft, non-tender. Bowel sounds normal. No masses,?? No organomegaly.reducible ventralincisional hernia ? Extremities:?? Extremities normal, atraumatic, no cyanosis or edema.?? Pulses:?? 2+ and symmetric all extremities.?? Skin:?? Skin color, texture, turgor normal. No rashes or lesions.?? Lymph nodes:?? Cervical, supraclavicular, and axillary nodes normal.?? Neurologic:?? CNII-XII intact. Normal strength, sensation and reflexes throughout. ?? DATA REVIEW CT scan of the abdomen and pelvis was reviewed by myself shows no signs of metastatic or locally recurrent pancreatic adenocarcinoma. There is a ventral incisional hernia containing omentum Assessment:?? 65-year-old female status post Whipple for pancreatic adenocarcinoma with no recurrence and a ventral incisional hernia ? Plan:?? Ventral incisional hernia repair. We had a long discussion on the nature of hernias and there etiology and the need for repair to prevent future complications such as incarceration and/or strangulation of underlying organs. We talked about the elective versus emergent repairs and the fact that elective operations tend to have better outcomes. We discussed the repair utilizing mesh as this decreases recurrence rates of the hernia. We talked about the possible complications such as bleeding, infection, injury to adjacent structures and/or organs and the possibility of hernia recurrence. We Talked about the need for weight limitations on lifting after surgery and the use of a binder.?? I also p rovided an informational packet to the patient documented in this encounter OR Notes * Operative Report - Andi Marley MD - 02/07/2016 11:04 PM CDT [place], [place] [address] Operative Report CSN: [id number] DATE OF SERVICE: 02/07/2016 SURGEON Andi Marley M.D. PREOPERATIVE DIAGNOSIS Ventral incisional hernia. POSTOPERATIVE DIAGNOSIS Ventral incisional hernia. OPERATION NAME 1. Ventral incisional hernia repair. 2. Abdominal scar revision. ANESTHESIA General. EBL Minimal. OPERATIVE FINDINGS 2 x 3 cm ventral hernia repaired with a 6.4 cm mesh in the preperitoneal position. DESCRIPTION OF PROCEDURE The patient was identified in the preoperative area and brought to the operating room where she underwent general anesthesia, was prepped and draped in usual sterile fashion over the abdominal cavity. Preoperative antibiotics already given and pneumatic compression boots on for DVT prophylaxis. Thepatient complains of pain under previous scar. Both lateral aspects of the previous scar were excised and carried in the subcutaneous tissue where in the midline I was able to dissect out the hernia sac and separate this from the surrounding subcutaneous structures down to the midline fascia. The defect was in the midline. I was able to elevate this with Iván clamps once the hernia sac was from the fascia. Preperitoneal dissection then proceeded for 3 to 4 cm on all sides, and once there was no injury noted to adjacent structures with sharp dissection with Metzenbaum scissors I was able to then have enough space to place a 6.4 cm mesh into the preperitoneal position and it was secured at 4 quadrants with interrupted 0 Tycron sutures. Interrupted 0 Tycron sutures were then used to close the fascia in a superior inferior direction in a figure-eight fashion and the mesh was completely covered. At this point, I then reapproximated the space left by the hernia with interrupted 3-0 Vicryl sutures. Interrupted 3-0 Vicryl sutures were then used to close the dermis and Rupal's fascia. Running 4-0 Monocryls were then used to close the skin. Dressings were placed, and the patient was brought to recovery room in stable condition. RLN:MEDQ DID: [id number] Dictated by: Andi Marley M.D. * Amirah-OP - Мария Alatorre RN - 02/07/2016 2:01 PM CDT Patient instructed on use of incentive spirometer. * Brief Op Note - Andi Marley MD - 02/07/2016 12:42 PM CDT Brief Postoperative Note Elena Fernández [id number] Pre-operative Diagnosis: Ventral incisional hernia [K43.2] Post-operative Diagnosis: Same Procedure(s) and Anesthesia Type: * HERNIA VENTRAL INCISIONAL REPAIR - General Surgeon(s) and Role: * Andi Marley MD - Primary Procedure Start: 1154 Procedure End: 1235 Findings: See path Specimens: ID Type Source Tests Collected by Time Destination A : abdominal scar Tissue Abdomen PATHOLOGY Andi Marley MD 02/07/2016 1220 Implants: Implant Name Type Inv. Item Serial No. String Cutter Lot No. LRB No. Used Action MESH PROCEED MED PVPM - [id number] Mesh MESH PROCEED MED PVPM pvpm [employer] [id number] N/A1 Implanted Estimated Blood Loss: [address] Andi Marley MD * Amirah-OP - Lorna Yepez RN - 02/07/2016 9:31 AM CDT glucoscan 142 documented in this encounter Miscellaneous Notes * Care Plan - Renea Cary RN - 02/07/2016 3:57 PM CDT Potential for pain related to surgical/procedural intervention Interventions: Assess level of pain/comfort utilizing verbal/nonverbal pain scales; assess culturalor gnosticism indicators attached to pain; administer pain medications as prescribed; utilize non-pharmacologic pain control and comfort measures Expected Outcome: Patient demonstrates and reports adequate pain control Outcome Met: yes * Care Plan - Nathalie Jovel - 02/07/2016 3:07 PM CDT Knowledge deficit related to post-discharge care Interventions: Assess learning needs and willingness to learn; give clear, concise explanations of the care required post-discharge; address patient/family questions and concerns; provide teaching asindicated Expected Outcome: Patient and/or family/significant other demonstrate(s) behaviors required for performance of activities enhancing recovery post-discharge Outcome Met: Discharge instructions explained to patient and responsible green party understanding verified. * Care Ksenia - Мария Alatorre RN - 02/07/2016 12:52 PM CDT Potential for pain related to surgical/procedural intervention Interventions: Assess level of pain/comfort utilizing verbal/nonverbal pain scales; assess culturalor gnosticism indicators attached to pain; administer pain medications as prescribed; utilize non-pharmacologic pain control and comfort measures Expected Outcome: Patient demonstrates and reports adequate pain control Outcome Met: Pain meds effective. Potential for alteration in thermoregulatory, circulatory, respiratory fluid & electrolyte status Interventions: Perform ongoing physical assessment; maintenance of airway or mechanical ventilation; monitor level of consciousness; initiate safety measures; observe patient???s respiratory status and oxygen saturation; obtain measurements of ongoing hemodynamic parameters, cardiac rhythm, and temperature; monitor intake and output; inspect wound dressings and/or drain output; perform prescribedtherapeutic regimens, treatments and tests; document and/or communicate care given Expected Outcome: Patient will maintain functional status compatible with preoperative status Outcome Met: Weaned from face mask. * Care Ksenia - Lorna Yepez RN - 02/07/2016 8:46 AM CDT Potential for anxiety related to surgical intervention Interventions: convey caring/supportive attitude; offer emotional support as needed; provide comfort measures (warm blanket, pillow, quiet environment); allow patient opportunity to verbalize concerns/fears/questions; explore coping behaviors; allow age-specific/special needs family support Expected Outcome: Patient will demonstrate decreased anxiety or adaptive coping strategies Outcome Met: calm comfortable Knowledge deficit related to procedure/environment Interventions: Assess learning needs and willingness to learn; give clear, concise explanations of the environment and sequence of events surrounding the periop experience; address patient/family questions and concerns; provide teaching as indicated, provide teaching related to postoperative pain assessment utilizing pain scales Expected Outcome: Patient verbalizes or demonstrates awareness/understanding of surgery and perioperative experience Outcome Met: discussed pre op protocols questions answered pt and family understand documented in this encounter Plan of Treatment Not on file documented as of this encounter Procedures Procedure Name Priority Date/Time Associated Diagnosis Comments TELEMETRY REPORT 02/07/2016 9:56 PM CDT POC GLUCOSE Routine 02/07/2016 1:07 PM CDT PATHOLOGY Pathology 02/07/2016 12:20 PM CDT HERNIA VENTRAL REPAIR 02/07/2016 11:00 AM CDT Ventral incisional hernia POC GLUCOSE Routine 02/07/2016 9:29 AM CDT documented in this encounter Results * TELEMETRY REPORT (02/07/2016 9:56 PM CDT) Provider Scanning ECG ORDERABLES * (ABNORMAL) POC GLUCOSE (02/07/2016 1:07 PM CDT) GLUCOSE POC 117(H) 79 - 99 mg/dL 02/07/2016 1:10 PM CDT [facility] Whole blood specimen (specimen) 02/07/2016 1:07 PM CDT 02/07/2016 1:10 PM CDT Andi Marley MD POINT OF CARE GREER Carrasco Performing Organization Address [facility] Co de Phone Number [facility]# [id number] [address] [place] [address] * PATHOLOGY (02/07/2016 12:20 PM CDT) CASE REPORT Surgical Pathology Report ? Case: [id number] ? Authorizing Provider: ??Andi Marley MD ? Collected: ? 02/07/2016 12:20 PM ? Ordering Location: ? [facility] ?Received: ?02/07/2016 12:48 PM ? Operating Room ? Pathologist: ? Isai Olson MD ? Specimen: ?Skin, abdominal scar ? 02/10/2016 11:35 AM [facility] FINAL DIAGNOSIS SKIN, ABDOMEN, EXCISION: - DERMAL SCAR AND KELOID. 02/10/2016 11:35 AM [facility] IMEN DESCRIPTION Abdominal scar. 02/10/2016 11:35 AM [facility] OPERATIVE PROCEDURE Hernia ventral incisional repair. 02/10/2016 11:35 AM [facility] CLINICAL INFORMATION Ventral incisional hernia, K43.2. 02/10/2016 11:35 AM [facility] GROSS DESCRIPTION Received in a single container labeled Elena Fernández, abdominal scar is a 20.5 x 1.7 x 1.9-cm unoriented excision of mackay skin. The skin surface is remarkable for a 20.5-cm long healed linear scar. No additional lesions are identified. Maintenance Shop Technician sections are submitted in cassette A1. MARTIR/silvia 02/10/2016 11:35 AM [facility] MICROSCOPIC DESCRIPTION The slide is labeled [id number] and Elena Fernández. The abdominal excision demonstrates dermal scar with lobulated collections of increased number of fibroblasts, blood vessels, and entrapped thick, eosinophilic, keloidal collagen bundles. 02/10/2016 11:35 AM [facility] COMMENT Special stain and/or immunohistochemical results are interpreted with controls that demonstrate appropriate staining reactions. Note on use of immunocytochemistry reagents: This test was developed and its performance characteristic determined by [facility], Department of Laboratory Medicine. It has not been cleared or approved by the U.S. Food and Drug Administration. The FDA has determined that such clearance or approval is not necessary. The test is used for clinical purpose. It should not be regarded as investigational or for research. This laboratory is certified to perform high complexity testing. Case types starting with WS, WF, WB and WH are performed by [address], [address]. All other case types are performed by [address], [address]. 02/10/2016 11:35 AM [facility] Tissue TISSUE SPECIMEN FROM SKIN / Unknown 02/07/2016 12:20 PM CDT 02/07/2016 12:48 PM CDT Andi Marley MD PATHOLOGY/CYTOLOGY O RDERABLES Performing Organization Address [facility]/ZIP Co de Phone Number [facility] [employer] [facility]# [id number] [address] [place] [address] * (ABNORMAL) POC GLUCOSE (02/07/2016 9:29 AM CDT) GLUCOSE POC 142(H) 79 - 99 mg/dL 02/07/2016 9:40 AM CDT [facility] [facility] Whole blood specimen (specimen) 02/07/2016 9:29 AM CDT 02/07/2016 9:40 AM CDT Andi Marley MD POINT OF CARE TESTIN G Performing Organization Address [facility]/ZIP Co de Phone Number [facility] [employer] [facility]# [id number] [address] [place] [address] documented in this encounter Visit Diagnoses Diagnosis Incisional hernia, without obstruction or gangrene- Primary Incisional hernia without mention of obstruction or gangrene Incisional hernia Incisional hernia without mention of obstruction or gangrene Ventral incisional hernia documented in this encounter Administered Medications Inactive Administered Medications - up to 3 most recent administrations Medication Order MAR Action Action Date Dose Rate Site bupivacaine-EPINEPHrine (SENSORCAINE-EPINEPHRIN E) 0.5 %-1:200,000 injection INTRA-PROCEDURE PRN, Starting on Wed02/07/16 at 1200, Until Wed02/07/16 at 1239, Routine, Intra-op Given 02/07/2016 12:00 PM CDT 10 mL Operative Site lactated ringers solution IV, at 100 mL/hr, PRE-PROCEDURE CONTINUOUS, Starting on Wed02/07/16 at 0930, Until Wed02/07/16 at 1839, Routine New Bag 02/07/2016 9:26 AM CDT 1,000 mL 100 mL/hr Arm, Left morphine 4 mg/mL injection 2 mg 2 mg, IV, POST-PROCEDURE Q 5 MINUTES PRN, 5 doses, Starting on Wed02/07/16 at 0941, Until Wed02/07/16 at 1839, Pain, Mild, For pain scale 1-3, Routine, PACU Given 02/07/2016 1:14 PM CDT 2 mg oxyCODONE-acetaminophen (PERCOCET) 5-325 mg per tablet 1 Tablet 1 Tablet, Oral, EVERY 4 HOURS PRN, Starting on Wed02/07/16 at 1243, Until Wed02/07/16 at 1839, Pain, Moderate, For Pain Scale 4-6, Routine, Post-op Phase II Given 02/07/2016 3:47 PM CDT 1 Tablet sodium chloride 0.9% infusion CONTINUOUS PRN, Starting on Wed02/07/16 at 1201, Until Wed02/07/16 at 1239, Routine, Intra-op New Bag 02/07/2016 12:01 PM CDT 1,000 mL Operative Site vancomycin in sodium chloride 0.9% (VANCOCIN) 1250 MG IVPB 1,250 mg 1,250 mg (rounded from 1,140 mg = 15 mg/kg ? 76 kg), IV, PRE-PROCEDURE ONCE, 1 dose, Starting on Wed02/07/16 at 0843, Until Wed02/07/16 at 1207, Routine, Pre-op, Antibiotic Indication: Surgical prophylaxis New Bag 02/07/2016 10:37 AM CDT 1,250 mg 167 mL/hr Arm, Left documented in this encounter Active and Recently Administered Medications Times are shown in CDT. Scheduled Medication Order 02/05/2016 02/06/2016 02/07/2016 vancomycin in sodium chloride 0.9% (VANCOCIN) 1250 MG IVPB 1,250 mg (COMPLETED)(Linked Group 1) 1,250 mg (rounded from 1,140 mg = 15 mg/kg ? 76 kg), IV, PRE-PROCEDURE ONCE, 1 dose, Starting on Wed02/07/16 at 0843, Until Wed02/07/16 at 1207, Routine, Pre-op, Antibiotic Indication: Surgical prophylaxis 1037 (New Bag - Prov ider: Lorna Yepez RN)1207 (Due: Stopped - Provider: Lorna Yepez RN) Continuous Medication Order 02/05/2016 02/06/2016 02/07/2016 lactated ringers solution (CANCELED) IV, at 100 mL/hr, PRE-PROCEDURE CONTINUOUS, Starting on Wed02/07/16 at 0930, Until Wed02/07/16 at 1839, Routine 0926 (New Bag - Prov ider: Lorna Yepez, RN)1235 (Fluid Volume - Provider: Michaela Ryan CRNA)1621 (Stopped - Provider: Renea Cary RN) PRN Medication Order 02/05/2016 02/06/2016 02/07/2016 bupivacaine-EPINEPHrine (SENSORCAINE-EPINEPHRINE) 0.5 %-1:200,000 injection (CANCELED) INTRA-PROCEDURE PRN, Starting on Wed02/07/16 at 1200, Until Wed02/07/16 at 1239, Routine, Intra-op 1200 (Given - Provid er: Andi Marley MD) cyclobenzaprine (FLEXERIL) tablet 10 mg 10 mg, Oral, THREE TIMES DAILY PRN, Starting on Wed02/07/16 at 1243, Until Wed02/07/16 at 1839, Spasm, Routine morphine 4 mg/mL injection 2 mg (CANCELED) 2 mg, IV, POST-PROCEDURE Q 5 MINUTES PRN, 5 doses, Starting on Wed02/07/16 at 0941, Until Wed02/07/16 at 1839, Pain, Mild, For pain scale 1-3, Routine, PACU 1314 (Given - Provid er: Мария Alatorre RN) oxyCODONE-acetaminophen (PERCOCET) 5-325 mg per tablet 1 Tablet (CANCELED) 1 Tablet, Oral, EVERY 4 HOURS PRN, Starting on Wed02/07/16 at 1243, Until Wed02/07/16 at 1839, Pain, Moderate, For Pain Scale 4-6, Routine, Post-op Phase II 1547 (Given - Provid er: Renea Cary, [place]) sodium chloride 0.9% infusion (CANCELED) CONTINUOUS PRN, Starting on Wed02/07/16 at 1201, Until Wed02/07/16 at 1239, Routine, Intra-op 1201 (New Bag - Prov ider: Andi Marley MD - Comment: irrigation prn and clean up) Linked Groups Order Group 1: vancomycin in sodium chloride 0.9% (VANCOCIN) 1250 MG IVPB 1,250 mg (COMPLETED)Jump to med 1,250 mg (rounded from 1,140 mg = 15 mg/kg ? 76 kg), IV, PRE-PROCEDURE ONCE, 1 dose, Starting on Wed02/07/16 at 0843, Until Wed02/07/16 at 1207, Routine, Pre-op, Antibiotic Indication: Surgical prophylaxis And REASON FOR ADMINISTERING VANCOMYCIN (CANCELED) Routine, ONGOING, Starting on Wed02/07/16 at 0845, Until Specified, Reason for using as an antimicrobial prophylaxis: Other, Pre-op documented in this encounter Care Teams Marketing Senior Recruiter Relationship Specialty Start Date End Date Jareth Lopez MD [address] [place] [address] PCP - General Family Practice 04/11/13 documented as of this encounter
--- OUTSIDE RECORDS SUMMARY | 2024-09-27 17:40 | XMS_ITS | Encounter Summary ---
Author Organization [facility] Address [address] [place] [address] Care Team Providers Care Chief Dog License Inspector Name Role Phone Jareth Lopez MD Primary Care Provider Reason for Referral * Outpatient Services (Urgent) - Closed Specialty Diagnoses / Procedures Referred By Armandoac bernie Referred To Contact CT Scan Diagnoses Pancreas cancer Vomiting bile Procedures CT ABDOMEN PELVIS W CONTRAST Andi Marley MD [address] [place] [address] Referral ID Status Reason Start Date Expiration Date V isits Requested Visits Authorized [id number] Closed [facility] 02/07/2014 03/08/2014 1 1 Reason for Visit * Outpatient Services (Urgent) - Closed Specialty Diagnoses / Procedures Referred By Contac bernie Referred To Contact CT Scan Diagnoses Pancreas cancer Vomiting bile Procedures CT ABDOMEN PELVIS W CONTRAST Andi Marley MD [address] [place] [id number] Referral ID Status Reason Start Date Expiration Date V isits Requested Visits Authorized [id number] Closed [facility] 02/07/2014 03/08/2014 1 1 Encounter Details Date Type Department Care Team (Latest Contact Info) Description 02/07/2014 1:58 PM CDT - 02/07/2014 11:59 PM CDT Hospital Encounter [facility] CT Scan [address] [place] [address] Andi Marley MD [address] [place] [address] Discharge Disposition: Home or Self Care Social History Tobacco Use Types Packs/Day Years Used Date Smoking Tobacco: Never Alcohol Use Standard Drinks/Week Comments No 0 (1 standard drink = 0.6 oz pur e alcohol) Sex and Gender Information Value Date Recorded Sex Assigned at Not on file Gender Identity Not on file Sexual Orientation Not on file documented as of this encounter Medications at Time of Discharge Medication Sig Dispensed Refills Start Date End Date triamterene-hydrochloro thiazide (MAXZIDE 25) 37.5-25 mg tablet Take 1 Tab by mouth daily. L GASSERI/B BIFIDUM/B LONGUM ([facility] HEALTH ORAL) Take by mouth. cyclobenzaprine (FLEXERIL) 5 mg TabletIndications:Pancr eas cyst Take 1 Tab by mouth 3 times daily as needed for Spasm. 30 Tab 0 01/04/2014 07/03/2014 docusate sodium (COLACE) 100 mg capsule Take 1 Cap by mouth 2 times daily. Take while taking narcotics for pain 30 Cap 0 12/10/2013 12/25/2014 METFORMIN HCL (METFORMIN ORAL) Take 500 mg by mouth Daily LATE. 12/25/2014 FENOFIBRIC ACID, CHOLINE, (TRILIPIX ORAL) Take 135 mg by mouth daily. 07/03/2014 METHYLCELLULOSE (CITRUCEL ORAL) Take by mouth daily. 06/05 documented as of this encounter Progress Notes * Megan Allen RN - 02/07/2014 2:32 PM CDT IMAGING SERVICES MEDICATION and FLUSH PROTOCOL [facility] ORDERS ARE ENTERED ???PER PROTOCOL?? Communication Orders: o For ordered imaging procedures requiring intravenous access: Initiate a peripheral IV, if not already in place, and discontinue IV prior to discharge. Medication Orders: o For respiratory distress, initiate oxygen and/or increase O2 to maintain saturations greater than90% o Sodium chloride 0.9% (normal saline) flush 10 mLs PRN for saline lock or medication administration. Procedure Specific Medications: o Hepatobiliary scan with ejection fraction give: For immediate use - Kinevac (Sincalide) 0.02 micrograms/Kg, one time, diluted with NS to a total infused volume of 30 mLs. Infuse via an infusion device over 30 minutes. o Thyroid cancer Thyrogen injections give: Thyrogen 0.9 mg deep IM every 24 hours for two doses. o Renal scan with Lasix give: Lasix (Furosemide) 1 mg/kg one time IV push over 2 minutes. Maximum dose of 40mg. o Renal scan with Enalapril give: Vasotec (Enalapril) 0.04 mg/kg one time diluted with NS to a total infused volume of 5mLs. Infuse via an infusion device over 5 minutes. Maximum dose 2.5mg. o Lymphoscintigraphy: Tc99m(Technetcium 99) 0.2mL filtered sulfur colloid with 0.2mL lidocaine 1% and 0.6mL sodium chloride. Give 500uCi (0.5mL) subcutaneously, in divided doses, ONE TIME at specified site(s). Add any instructions here Initiating Department(s): 10/2013 Nuclear Medicine and Pharmacy Reviewed: Revised: Approved by: Medical Executive Committee, Imaging Services and Pharmacy & Therapeutics_ Date: _10/2013 IMAGING SERVICES MEDICATION and FLUSH PROTOCOL [facility] ORDERS ARE ENTERED ???PER PROTOCOL?? Communication Orders: o For ordered imaging procedures requiring intravenous access: Initiate a peripheral IV, if not already in place, and discontinue IV prior to discharge. Medication Orders: o For respiratory distress, initiate oxygen and/or increase O2 to maintain saturations greater than90% o Sodium chloride 0.9% (normal saline) flush 10 mLs PRN for saline lock or medication administration. Procedure Specific Medications: o Hepatobiliary scan with ejection fraction give: For immediate use - Kinevac (Sincalide) 0.02 micrograms/Kg, one time, diluted with NS to a total infused volume of 30 mLs. Infuse via an infusion device over 30 minutes. o Thyroid cancer Thyrogen injections give: Thyrogen 0.9 mg deep IM every 24 hours for two doses. o Renal scan with Lasix give: Lasix (Furosemide) 1 mg/kg one time IV push over 2 minutes. Maximum dose of 40mg. o Renal scan with Enalapril give: Vasotec (Enalapril) 0.04 mg/kg one time diluted with NS to a total infused volume of 5mLs. Infuse via an infusion device over 5 minutes. Maximum dose 2.5mg. o Lymphoscintigraphy: Tc99m(Technetcium 99) 0.2mL filtered sulfur colloid with 0.2mL lidocaine 1% and 0.6mL sodium chloride. Give 500uCi (0.5mL) subcutaneously, in divided doses, ONE TIME at specified site(s). Add any instructions here Initiating Department(s): 10/2013 Nuclear Medicine and Pharmacy Reviewed: Revised: Approved by: Medical Executive Committee, Imaging Services and Pharmacy & Therapeutics_ Date: _10/2013 IMAGING SERVICES MEDICATION and FLUSH PROTOCOL [facility] ORDERS ARE ENTERED ???PER PROTOCOL?? Communication Orders: o For ordered imaging procedures requiring intravenous access: Initiate a peripheral IV, if not already in place, and discontinue IV prior to discharge. Medication Orders: o For respiratory distress, initiate oxygen and/or increase O2 to maintain saturations greater than90% o Sodium chloride 0.9% (normal saline) flush 10 mLs PRN for saline lock or medication administration. Procedure Specific Medications: o Hepatobiliary scan with ejection fraction give: For immediate use - Kinevac (Sincalide) 0.02 micrograms/Kg, one time, diluted with NS to a total infused volume of 30 mLs. Infuse via an infusion device over 30 minutes. o Thyroid cancer Thyrogen injections give: Thyrogen 0.9 mg deep IM every 24 hours for two doses. o Renal scan with Lasix give: Lasix (Furosemide) 1 mg/kg one time IV push over 2 minutes. Maximum dose of 40mg. o Renal scan with Enalapril give: Vasotec (Enalapril) 0.04 mg/kg one time diluted with NS to a total infused volume of 5mLs. Infuse via an infusion device over 5 minutes. Maximum dose 2.5mg. o Lymphoscintigraphy: Tc99m(Technetcium 99) 0.2mL filtered sulfur colloid with 0.2mL lidocaine 1% and 0.6mL sodium chloride. Give 500uCi (0.5mL) subcutaneously, in divided doses, ONE TIME at specified site(s). Add any instructions here Initiating Department(s): 10/2013 Nuclear Medicine and Pharmacy Reviewed: Revised: Approved by: Medical Executive Committee, Imaging Services and Pharmacy & Therapeutics_ Date: IMAGING SERVICES MEDICATION and FLUSH PROTOCOL [facility] ORDERS ARE ENTERED ???PER PROTOCOL?? Communication Orders: o For ordered imaging procedures requiring intravenous access: Initiate a peripheral IV, if not already in place, and discontinue IV prior to discharge. Medication Orders: o For respiratory distress, initiate oxygen and/or increase O2 to maintain saturations greater than90% o Sodium chloride 0.9% (normal saline) flush 10 mLs PRN for saline lock or medication administration. Procedure Specific Medications: o Hepatobiliary scan with ejection fraction give: For immediate use - Kinevac (Sincalide) 0.02 micrograms/Kg, one time, diluted with NS to a total infused volume of 30 mLs. Infuse via an infusion device over 30 minutes. o Thyroid cancer Thyrogen injections give: Thyrogen 0.9 mg deep IM every 24 hours for two doses. o Renal scan with Lasix give: Lasix (Furosemide) 1 mg/kg one time IV push over 2 minutes. Maximum dose of 40mg. o Renal scan with Enalapril give: Vasotec (Enalapril) 0.04 mg/kg one time diluted with NS to a total infused volume of 5mLs. Infuse via an infusion device over 5 minutes. Maximum dose 2.5mg. o Lymphoscintigraphy: Tc99m(Technetcium 99) 0.2mL filtered sulfur colloid with 0.2mL lidocaine 1% and 0.6mL sodium chloride. Give 500uCi (0.5mL) subcutaneously, in divided doses, ONE TIME at specified site(s). Add any instructions here Initiating Department(s): 10/2013 Nuclear Medicine and Pharmacy Reviewed: Revised: Approved by: Medical Executive Committee, Imaging Services and Pharmacy & Therapeutics_ Date: documented in this encounter Plan of Treatment Not on file documented as of this encounter Procedures Procedure Name Priority Date/Time Associated Diagnosis Comments CT ABDOMEN PELVIS W CONTRAST Stat 02/07/2014 3:58 PM CDT Pancreas cancer Vomiting bile documented in this encounter Results * CT ABDOMEN PELVIS W CONTRAST (02/07/2014 3:58 PM CDT) Anatomical Region Laterality Modality Abdomen Computed Tomogra phy 02/07/2014 3:34 PM CDT Impressions 02/07/2014 4:25 PM CDT IMPRESSION: 1. Minimal distention of the proximal jejunum, however there is no evidence of obstruction, wall thickening, active inflammatory change, or other acute process. 2. Right omental infarct. 3. Other incidental findings as discussed above. Dictated from [facility] 02/07/2014 4:[address] abdomen pelvis with contrast, 02/07/2014 INDICATION: Pancreas cancer, vomiting bile, postoperative Whipple Technique: Multislice helical axial with oral and intravenous contrast COMPARISON: None FINDINGS: Post surgical changes related to prior Whipple surgery are seen. The liver is normal. The gallbladder is absent. The spleen is normal. The residual pancreatic body and neck are normal. There is no pancreatic ductal dilatation, pseudocyst formation, or surrounding inflammation. The adrenal glands and kidneys are within normal limits. Oral contrast passes into the distal ileum. There is mild distention of the proximal jejunum measuring 3 cm in diameter, however no abnormal wall thickening or fold thickening is seen. There is no contrast extravasation, free air, free fluid, abscess, lymphadenopathy, or localized inflammatory change. A rounded fat density abnormality in the anterior omentum measuring 2 cm within the right abdomen is most compatible with an omental infarct. Colonic diverticulosis is present without acute diverticulitis. Atherosclerotic aortic calcification is present without aneurysm. The uterus is small. No large adnexal mass or cyst is seen. The lung bases are clear. There are no acute osseous abnormalities. A calcified granuloma within the posterior right lower lobe is incidentally noted. Procedure Note Farooq Montes MD - 02/07/2014 CT abdomen pelvis with contrast, 02/07/2014 INDICATION: Pancreas cancer, vomiting bile, postoperative Whipple Technique: Multislice helical axial with oral and intravenous contrast COMPARISON: None FINDINGS: Post surgical changes related to prior Whipple surgery are seen. The liver is normal. The gallbladder is absent. The spleen is normal. The residual pancreatic body and neck are normal. There is no pancreatic ductal dilatation, pseudocyst formation, or surrounding inflammation. The adrenal glands and kidneys are within normal limits. Oral contrast passes into the distal ileum. There is mild distention of the proximal jejunum measuring 3 cm in diameter, however no abnormal wall thickening or fold thickening is seen. There is no contrast extravasation, free air, free fluid, abscess, lymphadenopathy, or localized inflammatory change. A rounded fat density abnormality in the anterior omentum measuring 2 cm within the right abdomen is most compatible with an omental infarct. Colonic diverticulosis is present without acute diverticulitis. Atherosclerotic aortic calcification is present without aneurysm. The uterus is small. No large adnexal mass or cyst is seen. The lung bases are clear. There are no acute osseous abnormalities. A calcified granuloma within the posterior right lower lobe is incidentally noted. IMPRESSION IMPRESSION: 1. Minimal distention of the proximal jejunum, however there is no evidence of obstruction, wall thickening, active inflammatory change, or other acute process. 2. Right omental infarct. 3. Other incidental findings as discussed above. Dictated from [facility] Andi Marley MD CT ORDERABLES documented in this encounter Visit Diagnoses Diagnosis Pancreas cancer Malignant neoplasm of pancreas, part unspecified Vomiting bile Bilious emesis documented in this encounter Administered Medications Inactive Administered Medications - up to 3 most recent administrations Medication Order MAR Action Action Date Dose Rate Site iohexol (OMNIPAQUE) 240 mg/mL oral solution 50 mL 50 mL, Oral, PRE-PROCEDURE ONCE, 1 dose, Starting on Wed02/07/14 at 1534, Until Wed02/07/14 at 1534, Routine Given 02/07/2014 3:34 PM CDT 50 mL ioversol (OPTIRAY 320) 320 mg iodine/mL syringe 125 mL 125 mL, IV, INTRA-PROCEDURE ONCE, 1 dose, Starting on Wed02/07/14 at 1534, Until Wed02/07/14 at 1558 Given 02/07/2014 3:58 PM CDT 125 mL documented in this encounter Care Teams Chief Dog License Inspector Relationship Specialty Start Date End Date Jareth Lopez MD [address] [place] [id number] PCP - General Family Practice 04/11/13 documented as of this encounter
--- OUTSIDE RECORDS SUMMARY | 2024-09-27 17:40 | XMS_ITS | Encounter Summary ---
Author Organization [facility] Address [address] [place] [address] Care Team Providers Care Athletic Agent Name Role Phone Jareth Lopez MD Primary Care Provider Encounter Details Date Type Department Care Team (Late st Contact Info) Description 04/03/2021 Abstract [facility] [place] [address] [place] [address] Edmond Gant MD [address] [facility] [place][note 2] [address] [place] [address] Social History Tobacco Use Types [...] on filedocumented in this encounter Care Teams Athletic Agent Relationship Specialty Start Date End Date Jareth Lopez MD [address] [place] [address] PCP - General Family Practice 04/11/13 documented as of this encounter
--- OUTSIDE RECORDS SUMMARY | 2024-09-27 17:40 | XMS_ITS | Encounter Summary ---
Author Organization [facility] Address [address] [place] [address] Care Team Providers Care Hose Sprayer Name Role Phone Jareth Lopez MD Primary Care Provider Reason for Visit * Reason Comments Follow Up Encounter Details Date Type Department Care Team (Latest Contact Info) Description 12/15/2016 1:00 PM CDT Office Visit [facility] Surgical Spec [place] [id number] [place] [address] Andi Marley MD [address] [place] [address] Pancreatic adenocarcinoma (Primary Dx) Social History Tobacco Use Types [...] Sign Reading Time Taken Comments Blood Pressure 153/96 12/15/2016 12:46 PM CDT rt wrist Pulse 79 12/15/2016 12:46 PM CDT Temperature - - Respiratory Rate - - Oxygen Saturation - - Inhaled Oxygen Concentration - - Weight 81.2 kg (179 lb) 12/15/2016 12:46 PM CDT Height 160 cm (5' 2.99 ) 12/15/2016 12:46 PM CDT Body Mass Index 31.72 12/15/2016 12:46 PM CDT documented in this encounter Progress Notes * Andi Marley MD - 12/16/2016 4:23 PM CDT Subjective: 66-year-old female presents 3 years after her Whipple procedure for pancreatic adenocarcinoma. She has gained all of her weight back, 30 pounds over the past year since prior to her surgery. She has no nausea or vomiting. Her bowel movements are normal in color. She has some abdominal discomfort onthe right side from time to time but nothing persistent and it is a one on a scale of 1- 10. She hasno vomiting. There are no hospital problems to display for this patient. Past Medical History Diagnosis Date ??? Arthritis ??? Asthma as a child ??? At risk for obstructive sleep apnea 01/27/2016 stop bang 2 ??? Cancer pancreas ??? Diabetes mellitus ??? Diverticulitis ??? Edema, lower extremity pt takes triameterene/hctz ??? Gastrointestinal disorder diverticulitis ??? GERD (gastroesophageal reflux disease) patient denies ??? Heart disease, unspecified MVP ??? Temporomandibular joint disorder wears overnight associate Past Surgical History Procedure Laterality Date ??? Hx eye surgery age 5 cross eyed/glaucoma ??? Hx appendectomy ??? Hx section 1972 1976 ??? Hx sinus surgery ??? Hx foot surgery Bilateral four different surgeries ??? Hx tonsillectomy age 6 ??? Hx cyst removal Left index and pointer finger ??? Chg anesth,dx arthroscopic proc knee joint right ??? Endoscopy, gi ??? Chg anes colonoscopy,diagnostic ??? Pr part remv panc,prox+remv duod 12/04/2013 WHIPPLE performed by Andi Marley MD at [facility] OR [facility] ??? Hx lumbar diskectomy Left 03/29/2015 SPINAL MICRODISCECTOMY MINIMALLY INVASIVE - LEFT L5-S1 M.I. DISCECTOMY performed by Truman Streeter MD at [facility] ??? Hx hernia incisional repair N/A 02/07/2016 HERNIA VENTRAL INCISIONAL REPAIR performed by Andi Marley MD at [facility] (Not in a hospital admission) Allergies Allergen Reactions ??? Adhesive Other (See Comments) Blisters ??? Codeine Other (See Comments) Respiratory arrest ??? Nickel Other (See Comments) Sores ??? Oxycodone Other (See Comments) Can tolerate small dose ??? Penicillins Anaphylaxis Respiratory distress ??? Sulfa (Sulfonamide Antibiotics) Hives Internal and external hives Social History Substance Use Topics ??? Smoking status: Never Smoker ??? Smokeless tobacco: Never Used ??? Alcohol use Yes Comment: rarely Family History Problem Relation Age of Onset ??? Healthy Father ??? Other Father blood poisoning ??? Lung Cancer Mother ??? Lung Cancer Maternal Grandfather ??? Cancer Maternal Aunt colon ??? Cancer Maternal Aunt leukemia ??? Lung Cancer Maternal Aunt Review of Symptoms Head-no headaches or recent [...] ideation no major depressive episodes requiring hospitalization Objective: Visit Vitals ??? BP (!) 153/96 Comment: rt wrist ??? Pulse 79 ??? Ht 5' 2.99 (1.6 m) ??? Wt 81.2 kg (179 lb) ??? BMI 31.72 kg/m2 General: Alert, cooperative, no distress, appears stated age. Head: Normocephalic, without obvious abnormality, atraumatic. Eyes: Conjunctivae/corneas clear. PERRL, EOMs intact. Fundi benign. Ears: Normal TMs and external ear canals both ears. Nose: Nares normal. Septum midline. Mucosa normal. No drainage or sinus tenderness. Throat: Lips, mucosa, and tongue normal. Teeth and gums normal. Neck: Supple, symmetrical, trachea midline, no adenopathy, thyroid: no enlargment/tenderness/nodules, no carotid bruit and no JVD. Back: Symmetric, no curvature. ROM normal. No CVA tenderness. Lungs: Clear to auscultation bilaterally. Chest wall: No tenderness or deformity. Heart: Regular rate and rhythm, S1, S2 normal, no murmur, click, rub or gallop. Abdomen: Soft, non-tender. Bowel sounds normal. No masses, No organomegaly.Well- healed upper abdominal incision with no signs of recurrent hernia or ascites Extremities: Extremities normal, atraumatic, no cyanosis or edema. Pulses: 2+ and symmetric all extremities. Skin: Skin color, texture, turgor normal. No rashes or lesions. Lymph nodes: Cervical, supraclavicular, and axillary nodes normal. Neurologic: CNII-XII intact. Normal strength, sensation and reflexes throughout. DATA REVIEW CT scan of the chest abdomen and pelvis was reviewed by myself which shows trace no sign of metastatic disease and repair of a previous ventral hernia Assessment: 66-year-old female 3 years status post Whipple procedure for pancreatic adenocarcinoma Plan: See me back in 6 monthsContinue efforts at weight loss If everything is okay on clinical examination 6 months I will repeat a CAT scan in one year documented in this encounter Plan of Treatment Not on file documented as of this encounter Visit Diagnoses Diagnosis Pancreatic adenocarcinoma- Primary Malignant neoplasm of pancreas, part unspecified documented in this encounter Care Teams Hose Sprayer Relationship Specialty Start Date End Date Jareth Lopez MD [address] [place] [id number] PCP - General Family Practice 04/11/13 documented as of this encounter
--- OUTSIDE RECORDS SUMMARY | 2024-09-27 17:40 | XMS_ITS | Encounter Summary ---
Author Organization [facility] Address [address] [place] [address] Care Team Providers Care Supervisor Fireworks Assembly Name Role Phone Jareth Lopez MD Primary Care Provider [phone] Reason for Visit * Auth/Cert - Closed Specialty Diagnoses / Procedures Referred By Contac t Referred To Contact General Surgery Diagnoses HERNIATED LUMBAR DISC Procedures SPINAL MICRODISCECTOMY MINIMALLY INVASIVE [facility] [address] [place] [address] Referral ID Status Reason Start Date Expiration Date Visits Re quested Visits Authorized [id number] Closed 1 1 Encounter Details Date Type Department Care Team (Latest Contact Info) Description 03/29/2015 6:53 AM CDT - 03/29/2015 2:31 PM CDT Hospital Encounter [facility] [address] [place] [address] Truman Streeter MD [address] [place] [phone] Discharge Disposition: Home or Self Care Social [...] Sign Reading Time Taken Comments Blood Pressure 132/76 03/29/2015 1:45 PM CDT Pulse 80 03/29/2015 1:45 PM CDT Temperature 36.4 ??C (97.6 ??F) 03/29/2015 12:47 PM C DT Respiratory Rate 18 03/29/2015 1:45 PM CDT Oxygen Saturation 96% 03/29/2015 1:45 PM CDT Inhaled Oxygen Concentration - - Weight 68.2 kg (150 lb 6.4 oz) 03/29/2015 7:20 A M CDT Height 160 cm (5' 3 ) 03/21/2015 3:39 PM CDT Body Mass Index 26.64 03/21/2015 3:39 PM CDT documented in this encounter Discharge Instructions * Discharge Instructions* Clau Guzmán RN - 03/29/2015 1:33 PM CDT SAFETY For the next 24 hours, you may feel sleepy due to medicines used during your procedure. For this 24hour period or while you are on pain medication, DO NOT make any important decisions or sign any important papers. DO NOT drink any alcoholic beverages, including beer. DO NOT drive a car or operate machinery and power tools. For your safety and protection, we strongly recommend that a responsible adult be with you today and throughout the night. ACTIVITY Do not bend, twist or lift heavy objects (more than 10 pounds) until you see your physician. Do Walk. Walking is beneficial exercise and should be your only form of exercise until you see the physician. You should be walking with little or no assistance at home. There may be some numbness and/or tingling in your extremities. You also may climb stairs at your home. You may ride in a car, but do not drive until you have your physician???s permission. You may return to work when advised by your physician. DIET Stay on light diet today, you may resume a regular diet as tolerated. Small frequent meals to begin with may be tolerated more easily in the early post-operative stage. MEDICATIONS Use over the counter pain relievers such as Tylenol, Advil, Nuprin, Ibuprofen for discomfort. It is not uncommon to experience constipation or diarrhea due to anesthesia, pain medications or reaction to surgery. For Constipation-Use Milk of Magnesia, Dulcolax tablets or suppositories as directed. Drink fluids such as water, juices, etc. Eat more fruit and high fiber. For Diarrhea--Use Pepto-Bismol or Imodium AD as directed. Drink Gatorade and eat the BRAT diet (Bananas, Rice, Applesauce and [place]). Pain Medication given at . Next dose due @ . WOUND CARE Daily showering helps to keep the incision clean and can be taken days after surgery. No tub baths or swimming for 1 week. FOLLOW-UP Call the office to make a follow-up appointment with your surgeon. Once you are home, if you develop any of the following symptoms, call your physician: Difficulty in Breathing, excessive swelling or redness at the incision site, persistent nausea or vomiting, pain that is severe in your arms or legs, excessive bleeding, temperature greater than 101 degrees, significant increase in numbness, tingling in arms or legs. If you cannot contact your physician, call or come to the Emergency Room at [facility] ([phone]) or the nearest Emergency Room. In an emergency, Call 911. documented in this encounter Medications at Time of Discharge Medication Sig Dispensed Refills Start Date End Date omeprazole (PRILOSEC) 20 mg Capsule, Delayed Release(E.C.) Take 20 mg by mouth daily. multivitamin (DAILY-JASPER) tablet Take 1 Tab by mouth daily. triamterene-hydrochloroth iazide (MAXZIDE 25) 37.5-25 mg tablet Take 1 Tab by mouth daily. L GASSERI/B BIFIDUM/B LONGUM ([facility] ORAL) Take by mouth. HYDROcodone-acetaminophen (NORCO) 10-325 mg Tablet Take 1 Tab by mouth every 4 hours as needed (Pain). Max Daily Amount: 6 Tabs 60 Tab 0 03/29/2015 06/25/2015 traMADol (ULTRAM) 50 mg tablet Take 2 Tabs (100 mg) by mouth every 6 hours as needed for Pain. 60 Tab 0 03/29/2015 06/25/2015 sulindac (CLINORIL) 200 mg Tablet Take 200 mg by mouth. 06/25/2015 traMADol (ULTRAM) 50 mg tablet Take 50 mg by mouth every 6 hours as needed for Pain. 06/25/2015 METHYLCELLULOSE (CITRUCEL ORAL) Take by mouth daily. 015 documented as of this encounter Progress Notes * Truman Streeter MD - 03/29/2015 12:15 PM CDT Post-Op Check S: No complaints. States that pain in right leg resolved O: AF/VSS Motor 5/5 Sensation intact Incision c/d/i A: S/p Right L5-S1 microdiscectomy P: Mobilize DC home RTC six weeks Truman Streeter MD Neurosurgery documented in this encounter H&P Notes * Truman Streeter MD - 03/29/2015 9:40 AM CDT Update H&P Patient seen and examined, previous H&P reviewed. No changes since last H&P. Plan: To OR for Right L5-S1 microdiscectomy The risks, benefits, and alternatives of the procedure were explained to the patient, including butnot limited to bleeding, infection, stroke, paralysis, coma, , pain, numbness, tingling, weakness, CSF leak, bowel and bladder dysfunction, and need for future surgery. The patient verbalized understanding of these risks and wished to proceed with surgery. Informed consent was obtained Truman Streeter MD, FACS Neurosurgery documented in this encounter OR Notes * Operative Report - Truman Streeter MD - 03/29/2015 8:15 PM CDT [place], [place] [address] Operative Report CSN: [id number] DATE OF SERVICE: 03/29/2015 SURGEON Truman Streeter MD PREOPERATIVE DIAGNOSIS Right L5-S1 disk herniation with radiculopathy. POSTOPERATIVE DIAGNOSIS Right L5-S1 disk herniation with radiculopathy. OPERATION NAME 1. Right L5-S1 microdiskectomy and foraminotomy. 2. Interpretation of intraoperative fluoroscopy. 3. Utilization of intraoperative microsurgical technique. FAILURE ANALYSIS TECHNICIAN YANCY Benjamin ANESTHESIA Endotracheal. COMPLICATION None. ESTIMATED BLOOD LOSS Minimal. INDICATION FOR PROCEDURE Ms. Fernández is a 64-year-old female who presents with right leg radicular pain. She has a right diskherniation with nerve root compression, and presents today for elective microdiskectomy. DESCRIPTION OF PROCEDURE The patient was brought to the operating room and placed under anesthetic. She was turned prone on the Shane frame which was mounted on top of the Андрей table. All pressure points were padded. Thepatient's posterior back was shaved, prepped, and draped in the normal sterile fashion. A right paramedian incision was localized over the L5-S1 interspace. The incision was infiltrated with Marcaineand epinephrine mixture. Incision was made with #10 blade, and the fascia was incised sharply. The 5 cm retractor was placed for exposure. The intraoperative microscope was draped and brought on field. Microsurgical techniques were utilized for remainder of the procedure. Soft tissue and paraspinal musculature were dissected free from the base of spinous process lamina facet of L5 on the patient's right side. The trailing edge of the L5 lamina was delineated with straight angled curettes, and confirmed with intraoperative fluoroscopy. A hemilaminotomy was performed on the inferior aspect of the L5 lamina. The medial aspect of the set was drilled with [employer] high-speed air drill. The ligamentum flavum was removed exposing the thecal sac and the exiting nerve root.These were retracted medially, and there was a large free disk fragment and clear annular tear. Using the [place] and down pushing curettes, several large free disk fragments were removed from the epidural space without difficulty. The epidural space and frame were then palpated and found to be free of compressive lesions. The wound was copiously irrigated with saline solution. Meticulous hemostasis was obtained with bipolar electrocautery and Surgiflo. 40 mg of Depo-Medrol was placed over theexiting nerve root. Closure was obtained with 0 and 3-0 Vicryl suture for successive layers of fascia and subcutaneous tissue. Skin was closed with SureClose. The patient was extubated in the operating room and transported to the recovery room in stable condition. All sponge and needle counts were correct x2. I was present for the duration of the procedure. KE:MEDQ DID: [id number] Dictated by: Truman Streeter MD * Anesthesia Handoff - Sanjay Chanel AA-C - 03/29/2015 11:46 AM CDT Post-Anesthetic transfer of care report elements to appropriate post-anesthesia recovery environment completed in accordance with procedure. Vital Signs: BP: 143/79 mmHg (03/29/2015 11:44 AM) Pulse: 92 (03/29/2015 7:20 AM) Heart Rate: 92 bpm (03/29/2015 11:44 AM) Temp: 36.9 ??C (03/29/2015 11:44 AM) Resp: 12 (03/29/2015 11:44 AM) SpO2: 100 % (03/29/2015 11:44 AM) 11:46 AM CASANDRA Estrella * Operative Report - Truman Streeter MD - 03/29/2015 11:17 AM CDT Dictation #: [id number] * Operative Report - Truman Streeter MD - 03/29/2015 11:16 AM CDT Brief Post-Operative Note Pre-Operative Diagnosis: Right L5-S1 disc herniation with radiculopathy Post-Operative Diagnosis: Right L5-S1 disc herniation with radiculopathy Operation: Right L5-S1 microdiscectomy Surgeon: Truman Streeter MD, FACS Petrophysicist: YANCY Benjamin Anesthetic: General Endotracheal Complications:None EBL: Minimal Truman Streeter MD, FACS Neurosurgery documented in this encounter Miscellaneous Notes * Care Plan - Clau Guzmán RN - 03/29/2015 1:35 PM CDT Potential for pain related to surgical/procedural intervention Interventions: Assess level of pain/comfort utilizing verbal/nonverbal pain scales; assess culturalor worship indicators attached to pain; administer pain medications as prescribed; utilize non-pharmacologic pain control and comfort measures Expected Outcome: Patient demonstrates and reports adequate pain control Outcome Met: Patient reports adequate pain control. Knowledge deficit related to post-discharge care Interventions: Assess learning needs and willingness to learn; give clear, concise explanations of the care required post-discharge; address patient/family questions and concerns; provide teaching asindicated Expected Outcome: Patient and/or family/significant other demonstrate(s) behaviors required for performance of activities enhancing recovery post-discharge Outcome Met: Parents voice understanding of post-op instructions. * Care Plan - Milady Moody RN - 03/29/2015 7:19 AM CDT Potential for anxiety related to surgical intervention Interventions: convey caring/supportive attitude; offer emotional support as needed; provide comfort measures (warm blanket, pillow, quiet environment); allow patient opportunity to verbalize concerns/fears/questions; explore coping behaviors; allow age-specific/special needs family support Expected Outcome: Patient will demonstrate decreased anxiety or adaptive coping strategies Outcome Met: comfort measures offered Potential for pain related to surgical/procedural intervention Interventions: Assess level of pain/comfort utilizing verbal/nonverbal pain scales; assess culturalor worship indicators attached to pain; administer pain medications as prescribed; utilize non-pharmacologic pain control and comfort measures Expected Outcome: Patient demonstrates and reports adequate pain control Outcome Met: denies any pain documented in this encounter Plan of Treatment Not on file documented as of this encounter Procedures Procedure Name Priority Date/Time Associated Diagnosis Comments TELEMETRY REPORT 04/01/2015 9:43 PM CDT XR FLUORO LESS THAN 1 HOUR Routine 03/29/2015 11:19 AM CDT SPINAL MICRODISCECTOMY MINIMALLY INVASIVE 03/29/2015 9:43 AM CDT HERNIATED LUMBAR DISC Case Notes [facility], # [id number], CPT: 32930 POC GLUCOSE Routine 03/29/2015 7:32 AM CDT documented in this encounter Results * TELEMETRY REPORT (04/01/2015 9:43 PM CDT) Provider Scanning ECG ORDERABLES * XR FLUORO LESS THAN 1 HOUR (03/29/2015 11:19 AM CDT) Anatomical Region Laterality Modality Computed Radiogr aphy 03/29/2015 10:4 0 AM CDT Impressions 03/31/2015 8:20 AM CDT IMPRESSION: Intraoperative fluoroscopy provided. Narrative 03/31/2015 8:20 AM CDT FLUOROSCOPY LESS THAN ONE HOUR, 03/29/2015 HISTORY: Pain. TECHNIQUE: 0.15 minutes of intraoperative fluoroscopy was provided. Four intraoperative images were obtained. FINDINGS: ??These demonstrate a metallic instrument pointed from a posterior approach at the L5-S1 disc space. Truman Streeter MD DIAGNOSTIC IMAGING O RDERABLES * (ABNORMAL) POC GLUCOSE (03/29/2015 7:32 AM CDT) GLUCOSE POC 103(H) 79 - 99 mg/dL 03/29/2015 7:35 AM CDT [facility] Blood, capillary 03/29/2015 7:32 AM CDT 03/29/2015 7:35 AM CDT Truman Streeter MD POINT OF CARE TESTIN G [facility]# [id number] [address] [place] [address] documented in this encounter Visit Diagnoses Not on filedocumented in this encounter Administered Medications Inactive Administered Medications - up to 3 most recent administrations Medication Order MAR Action Action Date Dose Rate Site hydromorPHONE (DILAUDID) 1 mg/mL injection 0.3 mg 0.3 mg, IV, POST-PROCEDURE Q 5 MINUTES PRN, Starting on Wed03/29/15 at 0916, Until Wed03/29/15 at 1631, Pain, Mild, For pain scale 1-3, Routine, PACU Given 03/29/2015 12:20 PM CDT 0.3 mg Given 03/29/2015 12:04 PM CDT 0.3 mg Given 03/29/2015 11:59 AM CDT 0.3 mg lactated ringers solution IV, at 150 mL/hr, PRE-PROCEDURE CONTINUOUS, Starting on Wed03/29/15 at 0730, Until Wed03/29/15 at 1631, Routine, Pre-op New Bag 03/29/2015 10:49 AM CDT New Bag 03/29/2015 7:29 AM CDT 150 mL/hr lidocaine 2 % (XYLOCAINE) injection 0.3 mL 0.3 mL, See Admin Instructions, PRE-PROCEDURE ONCE, Starting on Wed03/29/15 at 0725, Until Wed03/29/15 at 1631, Routine, Pre-op Given 03/29/2015 7:30 AM CDT 0.3 mL Arm, Left vancomycin (VANCOCIN) IVPB 1,000 mg 1,000 mg (rounded from 1,027.5 mg = 15 mg/kg ? 68.5 kg), IV, PRE-PROCEDURE ONCE, 1 dose, Starting on Wed03/29/15 at 0725, Until Wed03/29/15 at 0930, Routine, Pre-op, Antibiotic Indication: Surgical prophylaxis New Bag 03/29/2015 8:30 AM CDT 1,000 mg documented in this encounter Active and Recently Administered Medications Times are shown in CDT. Scheduled Medication Order 03/27/2015 03/28/2015 03/29/2015 lidocaine 2 % (XYLOCAINE) injection 0.3 mL (CANCELED) 0.3 mL, See Admin Instructions, PRE-PROCEDURE ONCE, Starting on Wed03/29/15 at 0725, Until Wed03/29/15 at 1631, Routine, Pre-op 0730 (Given - Provid er: Milady Moody RN) vancomycin (VANCOCIN) IVPB 1,000 mg (COMPLETED) 1,000 mg (rounded from 1,027.5 mg = 15 mg/kg ? 68.5 kg), IV, PRE-PROCEDURE ONCE, 1 dose, Starting on Wed03/29/15 at 0725, Until Wed03/29/15 at 0930, Routine, Pre-op, Antibiotic Indication: Surgical prophylaxis 0830 (New Bag - Prov ider: Milady Moody RN)0930 (Due: Stopped - Provider: Milady Moody RN) Continuous Medication Order 03/27/2015 03/28/2015 03/29/2015 lactated ringers solution (CANCELED) IV, at 150 mL/hr, PRE-PROCEDURE CONTINUOUS, Starting on Wed03/29/15 at 0730, Until Wed03/29/15 at 1631, Routine, Pre-op 0729 (New Bag - Prov ider: Milady Moody RN)1049 (New Bag - Provider: CASANDRA Estrella)1145 (Fluid Volume - Provider: CASANDRA Estrella)1419 (Stopped - Provider: Clau Guzmán RN) PRN Medication Order 03/27/2015 03/28/2015 03/29/2015 bacitracin (BACI-IM) 50,000 Units in sodium chloride 0.9 % irrigation 500 mL IRRIGATION (CANCELED) INTRA-PROCEDURE PRN, Starting on Wed03/29/15 at 1059, Until Wed03/29/15 at 1143, Routine, Intra-op 1059 (Given - Provid er: Truman Streeter MD - Comment: Remaining 50mL used for prep.) bupivacaine-EPINEPHrine (PF) (SENSORCAINE MPF WITH EPI) 0.5 %-1:200,000 injection (CANCELED) INTRA-PROCEDURE PRN, Starting on Wed03/29/15 at 1110, Until Wed03/29/15 at 1143, Routine, Intra-op 1110 (Given - Provid er: Truman Streeter MD) hydromorPHONE (DILAUDID) 1 mg/mL injection 0.3 mg (CANCELED) 0.3 mg, IV, POST-PROCEDURE Q 5 MINUTES PRN, Starting on Wed03/29/15 at 0916, Until Wed03/29/15 at 1631, Pain, Mild, For pain scale 1-3, Routine, PACU 1159 (Given - Provid er: Adam Bettencourt RN)1204 (Given - Provider: Adam Bettencourt RN)1220 (Given - Provider: Adam Bettencourt RN) methylPREDNISolone Acetate (DEPO-MEDROL) 40 mg/mL injection (CANCELED) INTRA-PROCEDURE PRN, Starting on Wed03/29/15 at 1105, Until Wed03/29/15 at 1143, Routine, Intra-op 1105 (Given - Provid er: Truman Streeter MD) documented in this encounter Care Teams Supervisor Fireworks Assembly Relationship Specialty Start Date End Date Jareth Lopez MD [address] [place] [address] PCP - General Family Practice 04/11/13 documented as of this encounter
--- OUTSIDE RECORDS SUMMARY | 2024-09-27 17:40 | XMS_ITS | Encounter Summary ---
Author Organization [facility] Address [address] [place] [address] Care Team Providers Care Cushion Worker Name Role Phone Jareth Lopez MD Primary Care Provider [phone] Reason for Visit * Reason Onset Date Comments Results 04/28/2018 Encounter Details Date Type Department Care Team (Late st Contact Info) Description 04/28/2018 Telephone [facility] Gastroenterology [place] A [address] [place] [address] Edmond Gant MD [address] [place] [address] Results Social History Tobacco Use Types Packs/Day Years Used Date Smoking Tobacco: Never Smokeless Tobacco: Never Alcohol Use Standard Drinks/Week Comments Yes 0 (1 standard drink = 0.6 oz pur e alcohol) rarely Sex and Gender Information Value Date Recorded Sex Assigned at Not on file Gender Identity Not on file Sexual Orientation Not on file documented as of this encounter Miscellaneous Notes * Telephone Encounter - Aarti Elizondo LPN - 04/28/2018 9:08 AM CDT Pt given results voiced understanding * Telephone Encounter - Aarti Elizondo LPN - 04/28/2018 9:08 AM CDT ----- Message from Aarti Elizondo LPN sent at 04/21/2018 2:34 PM CDT ----- Polyp identified as benign but pre cancerous lesion. Based on these results and endoscopic findingsrecommend repeat colonoscopy for surveillance in 3 years. Health maintenance updated. documented in this encounter Plan of Treatment Not on file documented as of this encounter Visit Diagnoses Not on filedocumented in this encounter Care Teams Cushion Worker Relationship Specialty Start Date End Date Jareth Lopez MD [address] [place] [address] PCP - General Family Practice 04/11/13 documented as of this encounter
--- OUTSIDE RECORDS SUMMARY | 2024-09-27 17:40 | XMS_ITS | Encounter Summary ---
Author Organization [facility] Address [address] [place] [address] Care Team Providers Care Ironing Worker Name Role Phone Jareth Lopez MD Primary Care Provider Reason for Referral * Outpatient Services (Routine) - Closed Specialty Diagnoses / Procedures Referred By Contac t Referred To Contact CT Scan Diagnoses Nodule of left lung Procedures CT CHEST W CONTRAST Andi Marley MD [address] [place] [address] Referral ID Status Reason Start Date Expiration Date V isits Requested Visits Authorized [id number] Closed [facility] CTS 09/05/2015 10/04/2015 1 1 Reason for Visit * Reason Onset Date Comments Other 06/26/[address] Chest 3 mo [facility] Encounter Details Date Type Department Care Team (Late st Contact Info) Description 06/26/2015 Patient Outreach [facility] Surgical Spec [place] [id number] [place] [address] Judy Suh, RN Other (fu CT Chest 3 months) Social History Tobacco Use Types Packs/Day Years Used Date Smoking Tobacco: Never Alcohol Use Standard Drinks/Week Comments No 0 (1 standard drink = 0.6 oz pur e alcohol) Sex and Gender Information Value Date Recorded Sex Assigned at Not on file Gender Identity Not on file Sexual Orientation Not on file documented as of this encounter Miscellaneous Notes * Telephone Encounter - Judy Suh RN - 06/26/2015 11:57 AM CDT Fu chest CT 3 months documented in this encounter Plan of Treatment Not on file documented as of this encounter Results * CT CHEST W CONTRAST (09/26/2015 8:45 AM PAPER HANGER) Anatomical Region Laterality Modality Chest Computed Tomogra phy 09/26/2015 8:36 AM PAPER HANGER Impressions 09/30/2015 7:42 AM PAPER HANGER IMPRESSION: 1. The previous described left lower lobe nodule is unchanged. With the dedicated chest imaging, several additional groundglass nodules are identified, primarily within the left lower lobe. The findings are most suggestive of an infectious or inflammatory process, but nonetheless continued followup is recommended. 2. Additional findings as above. Dictated from Location 1: [facility] Narrative 09/30/2015 7:[address] CHEST WITH INTRAVENOUS CONTRAST DATE: September 26, 2015, 09:02:33 AM HISTORY: Nodule of left lung. TECHNIQUE: Multislice helical axial imaging with intravenous Optiray 320. FINDINGS: Comparison is made with prior CT of 06/25/2015 which identified a 4 mm left lower lobe nodule. In addition to the 4 mm nodule that is previous described and unchanged within the left lower lobe, there are additional scattered groundglass nodules in the left lower lobe. The appearance is most suggestive of an infectious or inflammatory process. There is a 3 mm focus of nodular pleural thickening in the right apex. No dense consolidation is present. No pleural effusion or pneumothorax is present. There is a calcified nodule in the right lower lobe. No pathologic lymphadenopathy is present. There are postoperative changes along the stomach and there has been prior cholecystectomy. There may be a small amount of pneumobilia. Procedure Note Edmond Mcdaniels MD - 09/30/2015 CT CHEST WITH INTRAVENOUS CONTRAST DATE: September 26, 2015, 09:02:33 AM HISTORY: Nodule of left lung. TECHNIQUE: Multislice helical axial imaging with intravenous Optiray 320. FINDINGS: Comparison is made with prior CT of 06/25/2015 which identified a 4 mm left lower lobe nodule. In addition to the 4 mm nodule that is previous described and unchanged within the left lower lobe, there are additional scattered groundglass nodules in the left lower lobe. The appearance is most suggestive of an infectious or inflammatory process. There is a 3 mm focus of nodular pleural thickening in the right apex. No dense consolidation is present. No pleural effusion or pneumothorax is present. There is a calcified nodule in the right lower lobe. No pathologic lymphadenopathy is present. There are postoperative changes along the stomach and there has been prior cholecystectomy. There may be a small amount of pneumobilia. IMPRESSION IMPRESSION: 1. The previous described left lower lobe nodule is unchanged. With the dedicated chest imaging, several additional groundglass nodules are identified, primarily within the left lower lobe. The findings are most suggestive of an infectious or inflammatory process, but nonetheless continued followup is recommended. 2. Additional findings as above. Dictated from Location 1: [facility] Andi Marley MD CT ORDERABLES documented in this encounter Visit Diagnoses Diagnosis Nodule of left lung- Primary Solitary pulmonary nodule Nodule of left lung Solitary pulmonary nodule documented in this encounter Care Teams Ironing Worker Relationship Specialty Start Date End Date Jareth Lopez MD [address] [place] [address] PCP - General Family Practice 04/11/13 documented as of this encounter
--- OUTSIDE RECORDS SUMMARY | 2024-09-27 17:40 | XMS_ITS | Encounter Summary ---
Author Organization [facility] Address [address] [place] [address] Care Team Providers Care Red Cap Name Role Phone Jareth Lopez MD Primary Care Provider [phone] Reason for Referral * Outpatient Services (Routine) - Closed Specialty Diagnoses / Procedures Referred By Contac t Referred To Contact CT Scan Diagnoses Pancreatic adenocarcinoma Procedures CT ABDOMEN PELVIS W CONTRAST Andi Marley MD [address] [place] [address] Referral ID Status Reason Start Date Expiration Date V isits Requested Visits Authorized [id number] Closed [facility] CTS 12/24/2014 01/22/2015 1 1 Reason for Visit * Reason Comments Follow Up Encounter Details Date Type Department Care Team (Latest Contact Info) Description 07/03/2014 1:00 PM CDT Office Visit [facility] Surgical Spec [place] [id number] [place] [address] Andi Marley MD [address] [place] [address] Pancreatic adenocarcinoma (Primary Dx) Social [...] Sign Reading Time Taken Comments Blood Pressure 124/74 07/03/2014 12:59 PM CDT ri ght wrist Pulse 97 07/03/2014 12:59 PM CDT Temperature - - Respiratory Rate 20 07/03/2014 12:59 PM CDT Oxygen Saturation - - Inhaled Oxygen Concentration - - Weight 72.6 kg (160 lb) 07/03/2014 12:59 PM CDT Height 162.6 cm (5' 4 ) 07/03/2014 12:59 PM CDT Body Mass Index 27.46 07/03/2014 12:59 PM CDT documented in this encounter Progress Notes * Andi Marley MD - 07/06/2014 6:23 AM CDT Subjective: 63year-old female who presents for followup of a Whipple procedure done 6 months ago for an IVP andthen which found incidentally foci of adenocarcinoma of her pancreas. She is a stage I pancreatic cancer patient. She has some abdominal bloating from time to time with certain meals such as beef andpossible. The pain is self-limited and does not change with position. She has no vomiting with the pain but notices relieved with defecation. She is no blood per rectum or proximal. Her weight has stayed stable she notices a decrease in abdominal muscle tone. Patient Active Problem List Diagnosis Date Noted ??? Pancreatic adenocarcinoma 01/04/2014 Overview Note: Found [...] 12/05/2013 ??? Elevated LFTs 12/05/2013 Past Medical History Diagnosis Date ??? Diabetes mellitus ??? Gastrointestinal disorder diverticulitis ??? Heart disease, unspecified MVP ??? Arthritis ??? GERD (gastroesophageal reflux disease) patient denies ??? Hyperlipidemia ??? Diverticulitis Past Surgical History Procedure Laterality Date ??? Hx eye surgery age 5 cross eyed/glaucoma ??? Hx appendectomy ??? Hx section 1972 1977 ??? Hx sinus surgery ??? Hx foot surgery Bilateral four different surgeries ??? Hx tonsillectomy age 6 ??? Hx cyst removal Left index and pointer finger ??? Chg anesth,dx arthroscopic proc knee joint right ??? Endoscopy, gi ??? Chg colonoscopy,diagnostic ??? Pr part remv panc,prox+remv duod 12/04/2013 WHIPPLE performed by Andi Marley MD at [facility] OR [facility] (Not in a hospital admission) Allergies Allergen Reactions ??? Adhesive Other (See Comments) Blisters ??? Codeine Other (See Comments) Respiratory arrest ??? Nickel Other (See Comments) Sores ??? Penicillins Anaphylaxis Respiratory distress ??? Sulfa (Sulfonamide Antibiotics) Hives Internal and external hives History Substance Use Topics ??? Smoking status: Never Smoker ??? Smokeless tobacco: Not on file ??? Alcohol Use: No Family History Problem Relation Age of Onset [...] no major depressive episodes requiring hospitalization Objective: BP 124/74 Pulse 97 Resp 20 Ht 5' 4 (1.626 m) Wt 160 lb (72.576 kg) BMI 27.45 kg/m2 General: Alert, cooperative, no distress, appears [...] non-tender. Bowel sounds normal. No masses, No organomegaly.well- healed incision with no signs of hernia Extremities: Extremities normal, atraumatic, no cyanosis or edema. Pulses: 2+ and symmetric all extremities. Skin: Skin color, texture, turgor normal. No rashes or lesions. Lymph nodes: Cervical, supraclavicular, and axillary nodes normal. Neurologic: CNII-XII intact. Normal strength, sensation and reflexes throughout. DATA REVIEW CT scan of the abdomen and pelvis was reviewed by myself from earlier today which demonstrated no signs of local or nicholas recurrence Assessment: 63-year-old female 6 months status post a Whipple procedure for a pancreatic high p.m. in with an incidental adenocarcinoma found in 2 foci Plan: Continue observation. She's see me back in [address] scan of her abdomen and pelvis I told her to continue experimentation with diet as most people have continued improvement for up to a year after a Whipple procedure. I also told her to limit carbohydrate intake as this can producea dumping syndrome. Continue proton pump inhibitor to prevent marginal ulcer documented in this encounter Plan of Treatment Not on file documented as of this encounter Results * CT ABDOMEN PELVIS W CONTRAST (12/25/2014 9:44 AM CDT) Anatomical Region Laterality Modality Abdomen Computed Tomogra phy 12/25/2014 9:34 AM CDT Impressions 12/25/2014 11:30 AM CDT IMPRESSION: 1. Fatty infiltration of the liver. 2. Status post Whipple procedure. 3. No convincing radiographic evidence of acute abdominal or pelvic disease. Dictated from location 1 - [facility]. DLP = ??[id number] Narrative 12/25/2014 11:30 AM CDT Exam: ??CT ABDOMEN PELVIS W CONTRAST . ??Dec 25, 2014 09:46:20 AM . History: . ??Malignant neoplasm of pancreas, part unspecified . Scans were performed during the intravenous injection of 125 cc Optiray-320. There is fatty infiltration of the liver. The liver is free of distinct solid masses. No abnormalities of bile ducts are seen. The gallbladder is normal. The spleen is unremarkable. The patient is status post Whipple procedure. No recurrent masses or abnormal fluid collections are identified. No renal cyst are seen. No solid renal lesions are seen. No renal stones are seen. ??No renal obstruction is seen. The ureters descend without evidence of obstruction or displacement. The urinary bladder is grossly normal. . No pelvic masses, cysts or abnormal fluid collections are seen. No periaortic or pelvic adenopathy is seen. A normal appendix cannot be identified but no right lower quadrant inflammatory changes are seen. . No abnormalities of bowel loop and mesentery are identified. Procedure Note Alek Valverde MD - 12/25/2014 Exam: CT ABDOMEN PELVIS W CONTRAST . Dec 25, 2014 09:46:20 AM . History: . Malignant neoplasm of pancreas, part unspecified . Scans were performed during the intravenous injection of 125 cc Optiray-320. There is fatty infiltration of the liver. The liver is free of distinct solid masses. No abnormalities of bile ducts are seen. The gallbladder is normal. The spleen is unremarkable. The patient is status post Whipple procedure. No recurrent masses or abnormal fluid collections are identified. No renal cyst are seen. No solid renal lesions are seen. No renal stones are seen. No renal obstruction is seen. The ureters descend without evidence of obstruction or displacement. The urinary bladder is grossly normal. . No pelvic masses, cysts or abnormal fluid collections are seen. No periaortic or pelvic adenopathy is seen. A normal appendix cannot be identified but no right lower quadrant inflammatory changes are seen. . No abnormalities of bowel loop and mesentery are identified. IMPRESSION IMPRESSION: 1. Fatty infiltration of the liver. 2. Status post Whipple procedure. 3. No convincing radiographic evidence of acute abdominal or pelvic disease. Dictated from location 1 - [facility]. DLP = [phone] ORDERABLES documented in this encounter Visit Diagnoses Diagnosis Pancreatic adenocarcinoma- Primary Malignant neoplasm of pancreas, part unspecified Pancreatic adenocarcinoma Malignant neoplasm of pancreas, part unspecified documented in this encounter Care Teams Red Cap Relationship Specialty Start Date End Date Jareth Lopez MD [address] [place] [address] PCP - General Family Practice 04/11/13 documented as of this encounter
--- OUTSIDE RECORDS SUMMARY | 2024-09-27 17:40 | XMS_ITS | Encounter Summary ---
Author Organization [facility] Address [address] [place] [address] Care Team Providers Care Locker Room Attendant Name Role Phone Jareth Lopez MD Primary Care Provider Encounter Details Date Type Department Care Team (Late st Contact Info) Description 01/16/2021 Abstract [facility] Gastroenterology [place] A [address] [place] [address] Edmond Gant MD [address] [place] [address] Social History Tobacco Use Types [...] on filedocumented in this encounter Care Teams Locker Room Attendant Relationship Specialty Start Date End Date Jareth Lopez MD [address] [place] [address] PCP - General Family Practice 04/11/13 documented as of this encounter
--- OUTSIDE RECORDS SUMMARY | 2024-09-27 17:40 | XMS_ITS | Encounter Summary ---
Author Organization [facility] Address [address] [place] [address] Care Team Providers Care Concert Manager Name Role Phone Jareth Lopez MD Primary Care Provider Reason for Referral * Outpatient Services (Routine) - Closed Specialty Diagnoses / Procedures Referred By Contac t Referred To Contact CT Scan Diagnoses Pancreatic adenocarcinoma Procedures CT ABDOMEN PELVIS W CONTRAST Andi Marley MD [address] [place] [address] Referral ID Status Reason Start Date Expiration Date V isits Requested Visits Authorized [id number] Closed [facility] CTS 11/26/2015 12/25/2015 1 1 UCTION MACHINIST Reason for Visit * Reason Comments Follow Up spot on lung Encounter Details Date Type Department Care Team (Latest Contact Info) Description 09/26/2015 11:30 AM PRODUCTION MACHINIST Office Visit [facility] Surgical Spec [place] [id number] [place] [address] Andi Marley MD [address] [place] [address] Pancreatic adenocarcinoma (Primary Dx) Social [...] Sign Reading Time Taken Comments Blood Pressure 119/68 09/26/2015 10:41 AM PRODUCTION MACHINIST ri ght arm Pulse 80 09/26/2015 10:41 AM PRODUCTION MACHINIST Temperature - - Respiratory Rate - - Oxygen Saturation - - Inhaled Oxygen Concentration - - Weight 68.9 kg (152 lb) 09/26/2015 10:41 AM PRODUCTION MACHINIST Height 160 cm (5' 3 ) 09/26/2015 10:41 AM PRODUCTION MACHINIST Body Mass Index 26.93 09/26/2015 10:41 AM PRODUCTION MACHINIST documented in this encounter Progress Notes * Andi Marley MD - 09/26/2015 11:44 AM CST Subjective: 64-year-old female who follows up for a spot in her lung seen on surveillance CT scan of the abdomen and pelvis. She has minimal incisional pain at the skin and is tried numerous remedies to prevent a keloid formation. She has no weight loss. She has no nausea or vomiting. Her bowel movements are unchanged and have no blood to them. Patient Active Problem List Diagnosis Date Noted [...] Heart disease, unspecified MVP ??? Arthritis ??? Hyperlipidemia ??? Diverticulitis ??? GERD (gastroesophageal reflux disease) patient denies ??? Cancer Pancrease Past Surgical History Procedure Laterality Date ??? [...] WHIPPLE performed by Andi Marley MD at [facility] OR [facility] ??? Hx lumbar diskectomy Left 03/29/2015 SPINAL MICRODISCECTOMY MINIMALLY INVASIVE - LEFT L5-S1 M.I. DISCECTOMY performed by Truman Streeter MD at [facility] OR [facility] (Not in a hospital admission) Allergies Allergen [...] major depressive episodes requiring hospitalization Objective: BP 119/68 mmHg Pulse 80 Ht 5' 3 (1.6 m) Wt 152 lb (68.947 kg) BMI 26.93 kg/m2 General: Alert, cooperative, no distress, appears [...] murmur, click, rub or gallop. Abdomen: Soft, small ventral hernia at the middle portion of her incision Bowel sounds normal. No masses, No organomegaly. Extremities: Extremities normal, atraumatic, no cyanosis or edema. Pulses: 2+ and symmetric all extremities. Skin: Skin color, texture, turgor normal. No rashes or lesions. Lymph nodes: Cervical, supraclavicular, and axillary nodes normal. Neurologic: CNII-XII intact. Normal strength, sensation and reflexes throughout. 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 She is going to continue topical treatment to the incision to prevent keloid formation. She will call me if her hernia becomes painful or gets larger. Otherwise she'll see me back in December for a6 month check UCTION MACHINIST documented in this encounter Plan of Treatment Not on file documented as of this encounter Results * CT ABDOMEN PELVIS W CONTRAST (12/24/2015 11:17 AM CDT) Anatomical Region Laterality Modality Abdomen Computed Tomogra phy 12/24/2015 11:1 8 AM CDT Impressions 12/24/2015 4:58 PM CDT IMPRESSION: 1. No evidence of metastatic disease. Narrative 12/24/2015 4:[address] ABDOMEN PELVIS W IV CONTRAST DATE: ??12/24/2015 11:17 AM HISTORY: Pancreatic adenocarcinoma. TECHNIQUE: Multislice helical axial with oral and intravenous contrast. COMPARISON: CT from 06/25/2015. DLP: 568 mGy-cm. ?? FINDINGS: The abnormality described in the left hepatic lobe is not clearly seen currently. There is no focal liver lesion. Post surgical changes of a Whipple procedure are stable. The spleen, residual pancreas, adrenal glands, and kidneys are normal. Oral contrast passes into the ileum. The bowel loops demonstrate no acute change. There is mild colonic diverticulosis. No ascites, adenopathy, mass, or active inflammatory fat stranding is seen. A small midline abdominal wall hernia containing fat is stable. The abdominal aorta is normal in caliber and demonstrates atherosclerotic disease. The imaged lung bases are clear. The previously reported left lower lobe groundglass nodule is not well seen currently. No acute osseous abnormalities are seen. Procedure Note Farooq Montes MD - 12/24/2015 CT ABDOMEN PELVIS W IV CONTRAST DATE: 12/24/2015 11:17 AM HISTORY: Pancreatic adenocarcinoma. TECHNIQUE: Multislice helical axial with oral and intravenous contrast. COMPARISON: CT from 06/25/2015. DLP: 568 mGy-cm. FINDINGS: The abnormality described in the left hepatic lobe is not clearly seen currently. There is no focal liver lesion. Post surgical changes of a Whipple procedure are stable. The spleen, residual pancreas, adrenal glands, and kidneys are normal. Oral contrast passes into the ileum. The bowel loops demonstrate no acute change. There is mild colonic diverticulosis. No ascites, adenopathy, mass, or active inflammatory fat stranding is seen. A small midline abdominal wall hernia containing fat is stable. The abdominal aorta is normal in caliber and demonstrates atherosclerotic disease. The imaged lung bases are clear. The previously reported left lower lobe groundglass nodule is not well seen currently. No acute osseous abnormalities are seen. IMPRESSION IMPRESSION: 1. No evidence of metastatic disease. Andi Marley MD CT ORDERABLES documented in this encounter Visit Diagnoses Diagnosis Pancreatic adenocarcinoma- Primary Malignant neoplasm of pancreas, part unspecified Pancreatic adenocarcinoma Malignant neoplasm of pancreas, part unspecified documented in this encounter Care Teams Concert Manager Relationship Specialty Start Date End Date Jareth Lopez MD [address] [place] [address] PCP - General Family Practice 04/11/13 documented as of this encounter
--- OUTSIDE RECORDS SUMMARY | 2024-09-27 17:40 | XMS_ITS | Encounter Summary ---
Author Organization [facility] Address [address] [place] [address] Care Team Providers Care Commercial Appraiser Name Role Phone Jareth Lopez MD Primary Care Provider Encounter Details Date Type Department Care Team (Latest Contact Info) Description 01/27/2016 2:48 PM CDT - 01/27/2016 11:59 PM T Hospital Encounter [facility] [address] [place] [address] Ann Griggs MD [address] [place] [address] Discharge Disposition: Home or Self Care Anesthesia Record Procedure Summary Procedure Name Responsible Anesthesiologist Anesthesia Start Time Anesthesia Stop Time HERNIA VENTRAL INCISIONAL REPAIR (Abdomen) Jamar Syed MD 02/07/16 1135 02/07/16 1245 Events Date Time Event Comment 02/07/2016 0933 AN Equip Check Anesthesia eq uipment and materials checked in accordance with local policy. 0942 1135 An Start 1137 An Start Data 1141 Pre-Induction Immediate pre- induction anesthetic assessment performed. Vital signs as noted on graphic. 1142 An Induction 1143 An LMA 1144 Anesthesia Ready 1237 Supraglottic Removed Spontan eous respirations. LMA discontinued without difficulty. Oropharynx suctioned as indicated. 1239 an stop data 1245 An Stop 1245 Hand-off to Receiving Clinic pancho Post-Anesthetic transfer of care report elements to appropriate post-anesthesia recovery environment completed in accordance with procedure. Meds * Agents No agents on file. * Blood No blood administrations on file. Lines, Drains, and Airways Type Details Placement Removal Peripheral IV Pre-Hospital Start: No; Orientation: Right; Location: AC; Device: Angiocath; Gauge: 22 gauge; Needle Length: 1 in length; Insertion Attempts: 1; Patient Tolerance: tolerated well; Power Injectable Compatible: Yes 06/25/15923 by Beverly Montano RN 04/11/18823 by Suzan Ortiz RN Endotracheal Airway Type: ETT; Cuff Pressure: minimal leak technique, minimal occluding volume, cuff inflated; Secured: secured with tape; Verification: Auscultated bilateral breath sounds, Equal chest movement, Continuous waveform capnography 02/07/16 08 by Michaela Ryan CRNA 02/07/16 08 by Brian Chaves AA-C Peripheral IV Pre-Hospital Start: No; Orientation: Left; Location: Arm; Device: Angiocath; Gauge: 20 gauge; Insertion Attempts: 1; Patient Tolerance: tolerated well; Removal Indication: no longer indicated; Removal Interventions: pressure dressing, direct pressure, catheter intact 02/07/16 09 by Lorna Yepez RN 02/07/16 1620 by Renea Cary, [place] Adult Incision 02/07/16; 1214; surgical incision; other (comment); abdomen; 02/08/16; 0439 02/07/16 1214 by Brie León RN 02/08/16 0439 by PROVIDER, DISCHARGE PATIENT documented in this encounter Social History Tobacco [...] Sign Reading Time Taken Comments Blood Pressure 143/77 01/27/2016 3:04 PM CDT Pulse 77 01/27/2016 3:04 PM CDT Temperature - - Respiratory Rate - - Oxygen Saturation 99% 01/27/2016 3:04 PM CDT Inhaled Oxygen Concentration - - Weight 78.5 kg (173 lb) 01/27/2016 3:04 PM CDT Height 160 cm (5' 3 ) 01/27/2016 3:04 PM CDT Body Mass Index 30.65 01/27/2016 3:04 PM CDT documented in this encounter Medications at Time [...] by mouth daily. L GASSERI/B BIFIDUM/B LONGUM ([facility] [employer] HEALTH ORAL) Take by mouth. cyclobenzaprine (FLEXERIL) 10 [...] Constipation. 04/16/2021 documented as of this encounter OR Notes * OR Anesthesia - Contreras Moulton FNP - 01/27/2016 3:29 PM CDT .Pre-Procedure Anesthesiology Consultation and Evaluation (PACE) Service 01/27/2016 3:29 PM Name: Elena Schultz Age: 65 y.o. Sex: female CSN: [id number] Procedure: HERNIA VENTRAL INCISIONAL REPAIR Dr. Griggs Allergies Allergen Reactions ??? Adhesive Other (See Comments) Blisters ??? Codeine Other (See Comments) Respiratory arrest ??? Nickel Other (See Comments) Sores ??? Oxycodone Other (See Comments) Can tolerate small dose ??? Penicillins Anaphylaxis Respiratory distress ??? Sulfa (Sulfonamide Antibiotics) Hives Internal and external hives (Not in a hospital admission) Current Outpatient Prescriptions Medication Sig Dispense Refill ??? POTASSIUM GLUCONATE ORAL Take 595 mg by mouth Daily LATE. ??? docusate sodium (COLACE) 100 mg capsule Take 100 mg by mouth 2 times daily as needed for Constipation. ??? Cholecalciferol, Vitamin D3, 3,000 unit Tablet Take 2,000 mg by mouth. ??? MULTIVITAMIN WITH MINERALS (HAIR,SKIN AND NAILS ORAL) Take by mouth. ??? Ginkgo Biloba 120 mg Tablet daily.. ??? omeprazole (PRILOSEC) 20 mg Capsule, Delayed Release(E.C.) Take 20 mg by mouth daily. ??? multivitamin (DAILY-JASPER) tablet Take 1 Tab by mouth daily. ??? triamterene-hydrochlorothiazide (MAXZIDE 25) 37.5-25 mg tablet Take 1 Tab by mouth daily. ??? L GASSERI/B BIFIDUM/B LONGUM ([employer] HEALTH ORAL) Take by mouth. ??? B.ANI/L.ACI/L.YONATAN/L.PLAN/L.GUERA (PROBIOTIC FORMULA ORAL) Take by mouth daily. ??? Omeprazole Magnesium (PRILOSEC) 2.5 mg Oral SuDR Take by mouth daily. No current facility-administered medications for this encounter. Advised patient to take the following medications AM DOS with a small sip of water: maxzide and prilosec Advised patient: No asa, nsaids, or supplements one week prior to surgery per surgeons request. Patient Active Problem List Diagnosis Date Noted ??? Incisional hernia 12/26/2015 ??? Pancreatic adenocarcinoma 01/04/2014 Overview Note: Found [...] Heart disease, unspecified MVP ??? Arthritis ??? Diverticulitis ??? GERD (gastroesophageal reflux disease) patient denies ??? Cancer Pancrease ??? Asthma as a child ??? Temporomandibular joint disorder wears watch guard gate ??? At risk for obstructive sleep apnea 01/27/2016 stop bang 2 ??? Edema, lower extremity pt takes triameterene/hctz Past Surgical History Procedure Laterality Date ??? [...] remv panc,prox+remv duod 12/04/2013 WHIPPLE performed by Ann Griggs MD at [facility] OR [facility] ??? Hx lumbar diskectomy Left 03/29/2015 SPINAL MICRODISCECTOMY MINIMALLY INVASIVE - LEFT L5-S1 M.I. DISCECTOMY performed by Truman Streeter MD at [facility] OR [facility] History Substance Use Topics ??? Smoking status: Never Smoker ??? Smokeless tobacco: Never Used ??? Alcohol Use: Yes Comment: rarely Family History Problem Relation Age of Onset ??? Healthy Father ??? Other Father blood poisoning ??? Lung Cancer Mother ??? Lung Cancer Maternal Grandfather ??? Cancer Maternal Aunt colon ??? Cancer Maternal Aunt leukemia ??? Lung Cancer Maternal Aunt Previous Anesthesia Problems/Concerns: No anesthesia problems/complications History of PONV: No Review of Systems Cardiovascular: HTN, Hx of MVP negative for chest pain, chest pressure/discomfort, exertional chestpressure/discomfort, palpitations, shortness of breath/dyspnea 2 flight of stairs without SOB/CP Respiratory: negative History Smoking status ??? Never Smoker Smokeless tobacco ??? Never Used Snoring: No, JUDITH: No Gastrointestinal: positive for reflux symptoms. Ventral hernia. Genitourinary: negative. Musculoskeletal: positive for arthralgias and stiff joints. TMJ. Neurological: negative Endocrine: DM II. Controlled with diet. Hematology/Oncology: Pancreatic CA 2014. Whipple. PHYSICAL EXAM BP 143/77 mmHg Pulse 77 Ht 5' 3 (1.6 m) Wt 78.472 kg (173 lb) BMI 30.65 kg/m2 SpO2 99% ? No Weight: Weight: 78.472 kg (173 lb) (01/27/16 1504) Height: Ht Readings from Last 1 Encounters: 01/27/16 5' 3 (1.6 m) BMI: Body mass index is 30.65 kg/(m^2). General Appearance: Alert, oriented, no acute distress Airway: normal range of motion; Airway Class: II (soft palate, uvula, fauces visible); Special Considerations None Dentition: good Lungs: clear to auscultation bilaterally, normal respiratory effort Heart: regular rate and rhythm, S1, S2 normal, no murmur, click, rub or gallop Neuro: alert, oriented x 3, no defects noted in general exam. Extremities: moves all extremities equally LABS Lab Results Component Value Date/Time WBC 8.2 03/21/2015 04:12 PM WBC 12.9* 12/21/2013 04:00 PM HEMOGLOBIN 14.0 03/21/2015 04:12 PM HEMOGLOBIN 13.3 12/21/2013 04:00 PM HEMATOCRIT 40.6 03/21/2015 04:12 PM HEMATOCRIT 41.1 12/21/2013 04:00 PM PLATELETS 266 03/21/2015 04:12 PM PLATELETS 450* 12/21/2013 04:00 PM MCV 92.7 03/21/2015 04:12 PM MCV 93.6 12/21/2013 04:00 PM Lab Results Component Value Date/Time SODIUM 138 03/21/2015 04:12 PM SODIUM 139 12/21/2013 04:00 PM POTASSIUM 4.0 03/21/2015 04:12 PM POTASSIUM 4.2 12/21/2013 04:00 PM CHLORIDE 96* 03/21/2015 04:12 PM CHLORIDE 94* 12/21/2013 04:00 PM CO2 31* 03/21/2015 04:12 PM CO2 28 12/21/2013 04:00 PM CALCIUM 9.6 03/21/2015 04:12 PM CALCIUM 10.4* 12/21/2013 04:00 PM BUN 14 03/21/2015 04:12 PM BUN 20 12/21/2013 04:00 PM CREATININE 0.58 03/21/2015 04:12 PM CREATININE 0.83 12/21/2013 04:00 PM POC CREATININE 0.70 12/24/2015 10:44 AM POC CREATININE 0.7 12/25/2014 09:29 AM GLUCOSE 115* 03/21/2015 04:12 PM GLUCOSE 160* 12/21/2013 04:00 PM ANION GAP 11 03/21/2015 04:12 PM Lab Results Component Value Date/Time INR 1.1 03/21/2015 04:12 PM INR 1.0 11/27/2013 03:00 PM PROTIME 13.6 03/21/2015 04:12 PM PROTIME 13.5 11/27/2013 03:00 PM No results found for: HCGURPOC, HCGQUALUR, HCGQUAL, HCGQUANT, HCGINTACT EK01/27/2016 normal sinus rhythm Other Studies/Considerations: None See prior anesthesia record from 03/2015. No complications. Type: ETT, Oral (no stylet used); Cuff Pressure: minimal occluding volume, cuff inflated, minimal leak technique; Size: 6; Site: mouth; Attempts: 1; FOV: I; cm: 21; Device: Curved Blade; Blade: 3; Secured: secured with tape; Verification: Auscultated bilateral breath sounds, Equal chest movement, Continuous waveform capnography Risks/Alternatives discussed. Questions solicited and answered. Yes Postop pain management discussed: yes; Recommendations:None ATTESTATIONS: Patient screened for tobacco use and identified as a Non-User of tobacco. I obtained, updated or reviewed the patient's current medications including dosage, frequency, and route of administration. This information was obtained directly from the patient or sales representative adding machines or caregiver or another available healthcare resource and updated in [facility] EMR. REPORT AND NECESSARY FOLLOW-UP History and physical performed in [facility], tests (ECG and/or blood work) reviewed. Abnormal Results Found: no Further Testing or Evaluation Required: no Final [facility] Center Review: May proceed with procedure/surgery: yes Stop bang score is 2. Contreras Moulton INFORMATION SYSTEMS SECURITY ANALYST-C * Amirah-OP - Deidre Donovan RN - 01/27/2016 3:07 PM CDT Patient was instructed to avoid shaving the surgical site for 24 hours prior to surgery. Patient instructed to not use/wear lotion, oils, cream or deodorant day of surgery. documented in this encounter Plan of Treatment Not on file documented as of this encounter Procedures Procedure Name Priority Date/Time Associated Diagnosis Comments BASIC METABOLIC PANEL Stat 01/27/2016 4:36 PM CDT EKG 12-LEAD Routine 01/27/2016 3:33 PM CDT documented in this encounter Results * (ABNORMAL) BASIC METABOLIC PANEL (01/27/2016 4:36 PM CDT) SODIUM 141 136 - 145 mmol/L 01/27/2016 5:51 PM CDT [facility] POTASSIUM 3.9 3.5 - 5.0 mmol/L 01/27/2016 5:51 PM CDT [facility] CHLORIDE 99 98 - 107 mmol/L 01/27/2016 5:51 PM CDT [facility] CO2 26 22 - 29 mmol/L 01/27/2016 5:51 PM CDT [facility] . [facility] CALCIUM 8.7 8.6 - 10.2 mg/dL 01/27/2016 5:51 PM CDT [facility] BUN 14 8 - 23 mg/dL 01/27/2016 5:51 PM CDT [facility] . [facility] CREATININE 0.71 0.51 - 0.95 mg/dL 01/27/2016 5:51 PM CDT [facility] . [facility] GLUCOSE 138(H) 79 - 99 mg/dL 01/27/2016 5:51 PM CDT [facility] GFR >60 >=60 mL/min/1.7 3 sq meter 01/27/2016 5:51 PM CDT [facility] Comment: eGFR has not been validated for use in the elderly (> 70 years of age), women, patients with serious co-morbid conditions, or persons with extremes of body size or muscle mass and should also be interpreted with caution in patients with acute kidney failure, dialysis dependent patients, patients reporting exceptional dietary intake (e.g. vegetarian diet, high protein diets, creatine supplementation), and patients with severe liver disease. Based on National Kidney Disease Education Program If patient is , please refer to the GFR result. GFR, >60 >=60 mL/min/1.7 3 sq meter 01/27/2016 5:51 PM CDT [facility] ANION GAP 16 8 - 16 mmol/L 01/27/2016 5:51 PM CDT [facility] Blood Collection / Unknown 01/27/2016 4:36 PM CDT 01/27/2016 4:36 PM CDT Landen Osman MD CHEMISTRY ORDERABLES [facility]# [id number] [address] [place] [address] * EKG 12-LEAD (01/27/2016 3:33 PM CDT) 01/27/2016 3:33 PM CDT Narrative INTERFACE SYSTEM - 01/27/2016 5:00 PM CDT ? Stationary ECG Study ? [facility] ? Test Date: ?01/27/2016 3:33 PM Pat Name: ? ELENA SCHULTZ ?Department: ?? 7 ?Room: ? Gender: ? 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 : ?1950 ? Requested By: ANN GRIGGS L Order Number: [id number] ?Reading MD: ?? Allan Barrera ? Measurements Intervals ?[place] ? Rate: ? 77 ? P: ?43 [place]: ? 152 ?QRS: ?37 QRSD: ? 93 ? T: ?67 QT: ? 393 ? QTc: ?446 ? Interpretive Statements ? 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: : 1950 Requested By: ANN Wells Order Number: [id number] Reading MD: Allan Barrera Measurements Intervals [place] Rate: 77 P: 43 [place]: 152 QRS: 37 QRSD: 93 T: 67 QT: 393 QTc: 446 Interpretive Statements SINUS RHYTHM Nonspecific ST Segment Abnormality Electronically Signed On 01-27-2016 17:00:51 CDT by Allan Barrera Landen Osman MD ECG ORDERABLES Performing Organization Address City/State/[facility] Co de Phone Number INTERFACE SYSTEM Refer to clinic/hospital department documented in this encounter Visit Diagnoses Not on filedocumented in this encounter Care Teams Commercial Appraiser Relationship Specialty Start Date End Date Jareth Lopez MD [address] [place] [address] PCP - General Family Practice 04/11/13 documented as of this encounter
--- OUTSIDE RECORDS SUMMARY | 2024-09-27 17:40 | XMS_ITS | Encounter Summary ---
Author Organization [facility] Address [address] [place] [address] Care Team Providers Care Certified Legal Secretary Specialist Name Role Phone Jareth Lopez MD Primary Care Provider Reason for Visit * Auth/Cert - Closed Specialty Diagnoses / Procedures Referred By Contac t Referred To Contact General Surgery Diagnoses HERNIATED LUMBAR DISC Procedures SPINAL MICRODISCECTOMY MINIMALLY INVASIVE [facility] Or [address] [place] [address] Referral ID Status Reason Start Date Expiration Date Visits Re quested Visits Authorized [id number] Closed 1 1 Encounter Details Date Type Department Care Team (Late st Contact Info) Description 03/29/2015 10:08 AM CDT Anesthesia Event [facility] Operating Room [address] [place] [address] Celia Rowell MD [address] [place] [address] [place] [address] Anesthesia Record Procedure Summary Procedure Name Responsible Anesthesiologist Anesthesia Start Time Anesthesia Stop Time SPINAL MICRODISCECTOMY MINIMALLY INVASIVE - LEFT L5-S1 M.I. DISCECTOMY (Left: Spine Lumbar) Celia Rowell MD 03/29/15 1008 03/29/15 1146 Events Date Time Event Comment 03/29/2015 0813 AN Equip Check Anesthesia eq uipment and materials checked in accordance with local policy. 0915 1008 An Start Patient ID and chart reviewed, consent/procedure verified, anesthesia plan explained to patient & family. Questions solicited & answered. Patient and/or family verbalized understanding of plan and consent to proceed. Pre-op medication given as documented, transport to OR, patient moved self to surgical bed, all pressure/stretch points padded and confirmed with patient, ASA monitors applied, patient pre-oxygenated for at least 3 minutes. 1013 An Start Data 1013 Pre-Induction Immediate pre- induction anesthetic assessment performed. Vital signs as noted on graphic. 1015 An Induction Smooth inductio n, eyes protected immediately after induction, able to bag mask patient easily. 1018 An Intubation DLx1 by AA-S Rosibel Dudley), atraumatic, vocal cords visualized, ETT passed easily, positive CO2, BSBE, vital signs stable, all pressure/strech points padded, teeth/lips/tongue same as pre-op. 1019 Anesthesia Ready 1020 Quick Note Pt placed in pr one position, all pressure points padded/head neutral, eyes checked, breasts/groin checked, BSBE, arms abducted <90 degrees, VSS. Eyes/PPP checked every 5 minutes. 1058 Handoff - Intraop Anesthesio logy transfer of care elements completed in accordance with procedure. 1134 An Extubation Emergence unev entful Awake, spontaneous respirations. Adequate muscle strength demonstrated Adequate tidal volume. Orapharynx suctioned. Extubated with positive pressure ventilation. 1138 an stop data 1146 An Stop Meds Name Total vancomycin (VANCOCIN) IVPB 1,000 mg 0 mg midazolam (VERSED) 1??mg/mL injection 2 mg propofol (DIPRIVAN) 10??mg/mL injection 150 mg lidocaine (XYLOCAINE) 2% injection 60 mg fentaNYL (SUBLIMAZE) PF 50??mcg/mL injec tion 100 mcg rocuronium (ZEMURON) 10mg/mL injection 5 0 mg dexamethasone (DECADRON) 4 mg/mL injecti on 4 mg diphenhydrAMINE (BENADRYL) 50 mg/mL inje ction 12.5 mg ondansetron (ZOFRAN) 4??mg/2 mL injectio n 4 mg ketorolac (TORADOL) 30??mg/mL injection 15 mg glycopyrrolate (ROBINUL) 0.2 mg/mL injec tion 0.8 mg neostigmine (PROSTIGMINE) 1 mg/mL inject ion 4 mg esmolol (BREVIBLOC) 10??mg/mL injection 20 mg lactated ringers solution 1,500 mL * Agents Name Sevoflurane % Sevoflurane O2 Inspired O2 N2O Inspired N2O O2 * Blood No blood administrations on file. Lines, Drains, and Airways Type Details Placement Removal Peripheral IV Pre-Hospital Start: No; Orientation: Right; Location: AC; Device: Angiocath; Gauge: 20 gauge; Insertion Attempts: 1; Patient Tolerance: tolerated well; Removal Indication: no longer indicated; Removal Interventions: pressure dressing 02/07/14 1442 by Megan Nails RN 03/29/15 1149 by Adam Bettencourt RN Peripheral IV Pre-Hospital Start: No; Orientation: Left; Location: Arm; Device: Angiocath; Gauge: 20 gauge; Insertion Attempts: 1; Patient Tolerance: tolerated well, appears comfortable; Removal Indication: no longer indicated, removed per policy; Removal Interventions: pressure dressing, direct pressure, catheter intact 03/29/15 0729 by Milady Moody RN 03/29/15 1420 by Clau Guzmán RN Endotracheal Airway Type: ETT, Oral (no stylet used); Cuff Pressure: minimal occluding volume, cuff inflated, minimal leak technique; Size: 6; Site: mouth; Attempts: 1; FOV: I; cm: 21; Device: Curved Blade; Blade: 3; Secured: secured with tape; Verification: Auscultated bilateral breath sounds, Equal chest movement, Continuous waveform capnography 03/29/15 1018 by Sanjay Chanel AA-C 03/29/15 1134 by Sanjay Chanel AA-C Adult Incision 03/29/15; 1112; surgical incision; Right; back; 03/30/15; 0231 03/29/15 1112 by Isai Alcaraz RN 03/30/15 0231 by PROVIDER, DISCHARGE PATIENT documented in this [...] on file documented as of this encounter OR Notes * Anesthesia Postprocedure Evaluation - Yan Andrews MD - 03/29/2015 11:56 AM CDT Post Anesthesia Evaluation Vitals: BP 143/79 mmHg Pulse 95 Temp(Src) 36.9 ??C (Skin) Resp 25 Ht 5' 3 (1.6 m) Wt 150lb 6.4 oz (68.221 kg) BMI 26.65 kg/m2 SpO2 100% Phase I Postanesthesia Evaluation Including Modified Valerie Score Patient seen and evaluated: Modified Valerie Score: Score: 9 (03/29/15 114) COMMENTS: No apparent Anesthesia related complications RESPIRATORY FUNCTION: Respiration: able to breath and cough freely (03/29/151148) [2=able to breathe and cough freely, 1=dyspnea, limited breathing or tachypnea, 0=apnea or mechanicventilator] O2 Saturation: able to maintain O2 saturation greater than 92% on room air (03/29/15 114) [2=able to maintain O2 saturation greater than 92% on room air, 1=needs O2 inhalation to maintain O2 saturation greater than 90%, 0=O2 saturation less than 90% even with O2 supplement] Resp: 25 (03/29/15 1150)SpO2: 100 % (03/29/15 1150) CARDIOVASCULAR FUNCTION: Heart Rate: 96 bpm (03/29/15 1150) BP: 143/79 mmHg (03/29/15 1144) Circulation: BP within 20% of preanesthetic level (03/29/15 114) [2=BP within 20% of preanesthetic level, 1=BP within 20-49% of preanesthetic level, 0=BP within 50%of preanesthetic level] MENTAL STATUS, NEURO, ACTIVITY: PATIENT PARTICIPATION IN EVALUATION:yes Consciousness: arousable on calling (03/29/15 114) [2=fully awake, 1=arousable on calling, 0=not responding] Activity: able to move 4 extremities voluntarily or on command (03/29/15 114) [2=able to move 4 extremities voluntarily or on command, 1=able to move 2 extremities voluntarily or on command, 0=unable to move extremities voluntarily or on command] TEMPERATURE: Temp: 36.9 ??C (06/26/15 1144) PAIN: Presence of Pain: denies pain/discomfort (03/29/15 1144) NAUSEA AND VOMITING: no nausea and no vomiting POSTOPERATIVE HYDRATION: well hydrated Intake/Output Summary (Last 24 hours) at 03/29/15 1156 Last data filed at 03/29/15 1145 Gross per 24 hour Intake 1500 ml Output 25 ml Net 1475 ml Yan Andrews MD 03/29/2015 11:56 AM Yan Andrews MD * Anesthesia Preprocedure Evaluation - Celia Rowell MD - 03/29/2015 9:14 AM CDT Anesthesia Evaluation Airway Mallampati: II TM distance: >3 FB Neck ROM: full Dental - normal exam Pulmonary breath sounds clear to auscultation (-) asthma, sleep apnea ROS comment: Non-smoker Cardiovascular Exercise tolerance: good (+) hypertension, ECG reviewed Rhythm: regular Rate: normal Neuro/Psych - negative ROS GI/Hepatic/Renal (+) GERD well controlled, Comments: Diverticulitis in the past Incidentally found pancreatic CA on CT scan for diverticulitis; s/p whipple with no further intervention required Endo/Other (+) diabetes mellitus (off metformin, now diet controlled), arthritis Abdominal Anesthesia History No history of anesthetic complications. Anesthesia Plan ASA 2 General Intravenous induction Oral ETT airway maintenance NPO status > 8 hours Anesthetic plan and risks discussed with Patient and Spouse. Plan discussed with Anesthesiologist [employer] Specialist. Post-op Pain Control Plan to use IV or IM medication for post-op pain control. documented in this encounter Plan of Treatment Not on file documented as of this encounter Visit Diagnoses Not on filedocumented in this encounter Administered Medications Inactive Administered Medications - up to 3 most recent administrations Medication Order MAR Action Action Date Dose Rate Site dexamethasone (DECADRON) injection INTRA-PROCEDURE PRN, Starting on Wed03/29/15 at 1043, Until Wed03/29/15 at 1149, Routine, Anesthesia Intra-op Given 03/29/2015 10:43 AM CDT 4 mg diphenhydrAMINE (BENADRYL) injection INTRA-PROCEDURE PRN, Starting on Wed03/29/15 at 1043, Until Wed03/29/15 at 1149, Routine, Anesthesia Intra-op Given 03/29/2015 10:43 AM CDT 12.5 mg esmolol (BREVIBLOC) 100 mg/10 mL injection INTRA-PROCEDURE PRN, Starting on Wed03/29/15 at 1135, Until Wed03/29/15 at 1149, Routine, Anesthesia Intra-op Given 03/29/2015 11:35 AM CDT 20 mg fentaNYL PF (SUBLIMAZE) 50 mcg/mL injection INTRA-PROCEDURE PRN, Starting on Wed03/29/15 at 1015, Until Wed03/29/15 at 1149, Routine, Anesthesia Intra-op Given 03/29/2015 10:15 AM CDT 100 mcg glycopyrrolate (ROBINUL) injection INTRA-PROCEDURE PRN, Starting on Wed03/29/15 at 1120, Until Wed03/29/15 at 1149, Routine, Anesthesia Intra-op Given 03/29/2015 11:29 AM CDT 0.2 mg Given 03/29/2015 11:20 AM CDT 0.6 mg ketorolac (TORADOL) injection INTRA-PROCEDURE PRN, Starting on Wed03/29/15 at 1115, Until Wed03/29/15 at 1149, Routine, Anesthesia Intra-op Given 03/29/2015 11:15 AM CDT 15 mg lactated ringers solution IV, at 150 mL/hr, PRE-PROCEDURE CONTINUOUS, Starting on Wed03/29/15 at 0730, Until Wed03/29/15 at 1631, Routine, Pre-op New Bag 03/29/2015 10:49 AM CDT New Bag 03/29/2015 7:29 AM CDT 150 mL/hr lidocaine 2 % (XYLOCAINE) injection INTRA-PROCEDURE PRN, Starting on Wed03/29/15 at 1015, Until Wed03/29/15 at 1149, Other (See Comment), Routine, Anesthesia Intra-op Given 03/29/2015 10:15 AM CDT 60 mg midazolam (VERSED) injection INTRA-PROCEDURE PRN, Starting on Wed03/29/15 at 1008, Until Wed03/29/15 at 1149, Routine, Anesthesia Intra-op Given 03/29/2015 10:08 AM CDT 2 mg neostigmine (PROSTIGMINE) 1 mg/mL injection INTRA-PROCEDURE PRN, Starting on Wed03/29/15 at 1120, Until Wed03/29/15 at 1149, Routine, Anesthesia Intra-op Given 03/29/2015 11:29 AM CDT 1 mg Given 03/29/2015 11:20 AM CDT 3 mg ondansetron (ZOFRAN) 4 mg/2 mL injection INTRA-PROCEDURE PRN, Starting on Wed03/29/15 at 1112, Until Wed03/29/15 at 1149, Nausea/Emesis, Routine, Anesthesia Intra-op Given 03/29/2015 11:12 AM CDT 4 mg propofol (DIPRIVAN) injection INTRA-PROCEDURE PRN, Starting on Wed03/29/15 at 1015, Until Wed03/29/15 at 1149, Anesthesia Intra-op Given 03/29/2015 10:15 AM CDT 150 mg rocuronium (ZEMURON) injection INTRA-PROCEDURE PRN, Starting on Wed03/29/15 at 1015, Until Wed03/29/15 at 1149, Routine, Anesthesia Intra-op Given 03/29/2015 11:03 AM CDT 10 mg Given 03/29/2015 10:15 AM CDT 40 mg documented in this encounter Care Teams Certified Legal Secretary Specialist Relationship Specialty Start Date End Date Jareth Lopez MD [address] [place] [id number] PCP - General Family Practice 04/11/13 documented as of this encounter
--- OUTSIDE RECORDS SUMMARY | 2024-09-27 17:40 | XMS_ITS | Encounter Summary ---
Author Organization [facility] Address [address] [place] [address] Care Team Providers Care Wool Handler Name Role Phone Jareth Lopez MD Primary Care Provider Reason for Referral * Outpatient Services (Routine) - Closed Specialty Diagnoses / Procedures Referred By Vasquez gibbs Referred To Contact CT Scan Diagnoses Pancreatic adenocarcinoma Procedures CT CHEST ABDOMEN PELVIS W Andi Mas MD [address] [place] [address] Referral ID Status Reason Start Date Expiration Date V isits Requested Visits Authorized [id number] Closed [facility] 12/01/2016 12/30/2016 1 1 Reason for Visit * Outpatient Services (Routine) - Closed Specialty Diagnoses / Procedures Referred By Contmaggie gibbs Referred To Contact CT Scan Diagnoses Pancreatic adenocarcinoma Procedures CT CHEST ABDOMEN PELVIS W Andi Mas MD [address] [place] [address] Referral ID Status Reason Start Date Expiration Date V isits Requested Visits Authorized [id number] Closed [facility] 12/01/2016 12/30/2016 1 1 Encounter Details Date Type Department Care Team (Latest Contact Info) Description 12/15/2016 9:45 AM CDT - 12/15/2016 11:59 PM CDT Hospital Encounter [facility] CT Scan [address] [place] [address] Andi Marley MD [address] [place] [address] Discharge Disposition: Home or Self [...] by mouth daily. L GASSERI/B BIFIDUM/B LONGUM ([employer] HE[employer] ORAL) Take by mouth. docusate sodium (COLACE) 100 mg capsule Take 100 mg by mouth 2 times daily as needed for Constipation. 04/16/2021 documented as of this encounter Miscellaneous Notes * Treatment Plan - Cynthia Steele RN - 12/15/2016 10:13 AM CDT Images from the original note were not included. documented in this encounter Plan of Treatment Not on file documented as of this encounter Procedures Procedure Name Priority Date/Time Associated Diagnosis Comments CT CHEST ABDOMEN PELVIS W CONT Routine 12/15/2016 11:36 AM CDT Pancreatic adenocarcinoma POC CREATININE Routine 12/15/2016 10:48 AM CDT documented in this encounter Results * CT CHEST ABDOMEN PELVIS W CONT (12/15/2016 11:36 AM CDT) Anatomical Region Laterality Modality Chest Computed Tomogra phy 12/15/2016 11:3 6 AM CDT Impressions 12/16/2016 2:34 PM CDT IMPRESSION: 1. No evidence of metastatic disease. Abdomen and pelvis: Prior postsurgical changes of a Whipple procedure are noted. The liver is normal with no focal lesion. The spleen and residual pancreas are normal. The gallbladder is absent. There is no biliary dilatation. The adrenal glands and kidneys are within normal limits. Oral contrast passes into the ileum. Colonic diverticulosis is present. The bowel loops demonstrate no acute process. No ascites, abdominal mass, lymphadenopathy, or acute inflammatory fat stranding is seen. The abdominal aorta is normal in caliber with atherosclerotic calcification. The uterus is normal in size. There is no large adnexal mass or cyst. The bladder is normal. No osseous lesions are seen. IMPRESSION: 1. No evidence of metastatic disease. DICTATION LOCATION: Location 1 - [facility] 12/16/2016 2:[address] CHEST, ABDOMEN AND PELVIS WITH INTRAVENOUS CONTRAST DATE: ??12/15/2016 11:36 AM HISTORY: Pancreatic adenocarcinoma. TECHNIQUE: Multislice helical axial with oral and intravenous contrast. COMPARISON: None. FINDINGS: Chest: The heart size is normal. The thoracic aorta is normal in caliber. There are calcified mediastinal lymph nodes. Otherwise no adenopathy is present. 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 No osseous abnormalities are identified. No suspicious pulmonary nodule or mass is seen. There is no acute infiltrate or consolidation. A calcified granuloma within the posterior right lower lobe is noted. There is no pleural effusion or pneumothorax. Procedure Note Farooq Montes MD - 12/16/2016 CT CHEST, ABDOMEN AND PELVIS WITH INTRAVENOUS CONTRAST DATE: 12/15/2016 11:36 AM HISTORY: Pancreatic adenocarcinoma. TECHNIQUE: Multislice helical axial with oral and intravenous contrast. COMPARISON: None. FINDINGS: Chest: The heart size is normal. The thoracic aorta is normal in caliber. There are calcified mediastinal lymph nodes. Otherwise no adenopathy is present. 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 No osseous abnormalities are identified. No suspicious pulmonary nodule or mass is seen. There is no acute infiltrate or consolidation. A calcified granuloma within the posterior right lower lobe is noted. There is no pleural effusion or pneumothorax. IMPRESSION IMPRESSION: 1. No evidence of metastatic disease. Abdomen and pelvis: Prior postsurgical changes of a Whipple procedure are noted. The liver is normal with no focal lesion. The spleen and residual pancreas are normal. The gallbladder is absent. There is no biliary dilatation. The adrenal glands and kidneys are within normal limits. Oral contrast passes into the ileum. Colonic diverticulosis is present. The bowel loops demonstrate no acute process. No ascites, abdominal mass, lymphadenopathy, or acute inflammatory fat stranding is seen. The abdominal aorta is normal in caliber with atherosclerotic calcification. The uterus is normal in size. There is no large adnexal mass or cyst. The bladder is normal. No osseous lesions are seen. IMPRESSION: 1. No evidence of metastatic disease. DICTATION LOCATION: Location 1 [facility] Andi Marley MD CT ORDERABLES * POC CREATININE (12/15/2016 10:48 AM CDT) CREATININE POC 0.70 0.50 - 1.00 mg/dL 12/15/2016 10:55 AM T [facility] GFR >60 >=60 mL/min/1.7 3 sq meter 12/15/2016 10:55 AM [facility] Comment: eGFR has not been [...] GFR, >60 >=60 mL/min/1.7 3 sq meter 12/15/2016 10:55 AM [facility] Blood, capillary 12/15/2016 10:48 AM CDT 12/15/2016 10:55 AM CDT Andi Marley MD POINT OF CARE [facility]# [id number] [address] [place] [id number] documented in this encounter Visit Diagnoses Diagnosis Pancreatic adenocarcinoma Malignant neoplasm of pancreas, part unspecified documented in this encounter Administered Medications Inactive Administered Medications - up to 3 most recent administrations Medication Order MAR Action Action Date Dose Rate Site iohexol (OMNIPAQUE) 240 mg/mL oral solution 50 mL 50 mL, Oral, PRE-PROCEDURE ONCE, 1 dose, Starting on Wed12/15/16 at 1107, Until Wed12/15/16 at 1000, Routine Given 12/15/2016 10:00 AM CDT 50 mL iopamidol (ISOVUE-300) 61 % injection 125 mL 125 mL, IV, INTRA-PROCEDURE ONCE, 1 dose, Starting on Wed12/15/16 at 1107, Until Tu12/15/16 at 1108, Routine Contrast Given 12/15/2016 11:08 AM CDT 125 mL documented in this encounter Care Teams Wool Handler Relationship Specialty Start Date End Date Jareth Lopez MD [address] [place] [address] PCP - General Family Practice 04/11/13 documented as of this encounter
--- OUTSIDE RECORDS SUMMARY | 2024-09-27 17:40 | XMS_ITS | Encounter Summary ---
Author Organization [facility] Address [address] [place] [address] Care Team Providers Care Audit Practice Intern Name Role Phone Jareth Lopez MD Primary Care Provider Reason for Visit * Auth/Cert Specialty Diagnoses / Procedures Referred By Contac t Referred To Contact Gastroenterology Procedures COLONOSCOPY ESOPHAGOGASTRODUODENOSCOP [facility] [address] [place] [address] Referral ID Status Reason Start Date Expiration Date Visits Re quested Visits Authorized [id number] 1 1 Encounter Details Date Type Department Care Team (Late st Contact Info) Description 04/11/2018 7:00 AM CDT - 04/11/2018 7:[address] [facility] [address] [place] [address] Edmond Gant MD [address] [address] COLONOSCOPY Surgery Details Date/Time Status Location OR Service Patient Class Case Class Case Type Trauma Case? 04/11/2018 7:00 AM Posted [facility] GI 09 Gastroenterology Outpatient Elective No Panel 1 Procedure LRB Anes Op Region Wound Class Comments COLONOSCOPY N/A General Anus ESOPHAGOGASTRODUODENOSCOPY N/A General Mouth Surgeon Surgeon Role Service Panel Edmond Gant [...] Sign Reading Time Taken Comments Blood Pressure 152/78 04/11/2018 6:47 AM CDT Pulse 78 04/11/2018 6:47 AM CDT Temperature 36.3 ??C (97.4 ??F) 04/11/2018 6:47 AM CD T Respiratory Rate 16 04/11/2018 6:47 AM CDT Oxygen Saturation 100% 04/11/2018 6:47 AM CDT Inhaled Oxygen Concentration - - Weight 67 kg (147 lb 12.8 oz) 04/11/2018 6:37 AM CDT Height 160 cm (5' 3 ) 04/11/2018 6:37 AM CDT Body Mass Index 26.18 04/11/2018 6:37 AM CDT documented in this encounter Discharge Instructions * Discharge Instructions* Suzan Ortiz RN - 04/11/2018 8:10 AM CDT If you should experience: Severe [...] Sig Dispensed Refills Start Date End Date empagliflozin/metformi n HCl (SYNJARDY ORAL)Indications:2 a day in the [...] by mouth daily. L GASSERI/B BIFIDUM/B LONGUM (Testt ORAL) Take by mouth. docusate sodium (COLACE) 100 mg capsule Take 100 mg by mouth 2 times daily as needed for Constipation. 04/16/2021 documented as of this encounter H&P Notes * Edmond Gant MD - 04/11/2018 7:15 AM CDT PRE PROCEDURE EVALUATION - Colonoscopy/EGD DATE: 04/11/2018 HPI: This is a 67 y.o. female patient scheduled for Colonoscopy/EGD for-epigastric pain, colonoscopy for screening purposes. Patient Active Problem List Diagnosis Date Noted ??? Abdominal pain 12/21/2017 ??? Incisional hernia 12/26/2015 ??? Pancreatic adenocarcinoma [...] 2 ??? Cancer pancreas ??? Diabetes mellitus type 2 ??? Diverticulitis ??? Edema, lower extremity pt takes triameterene/hctz ??? Gastrointestinal disorder diverticulitis ??? GERD (gastroesophageal reflux disease) patient denies ??? Heart disease, unspecified MVP ??? Temporomandibular joint disorder wears aquatics lifeguard Past Surgical History: Procedure Laterality Date ??? [...] REPAIR performed by Andi Marley MD at [facility] ??? HX LUMBAR DISKECTOMY Left 03/29/2015 SPINAL MICRODISCECTOMY MINIMALLY INVASIVE - LEFT L5-S1 M.I. DISCECTOMY performed by Truman Streeter MD at [facility] ??? HX SINUS SURGERY ??? HX TONSILLECTOMY age 6 ??? AR PART REMV PANC,PROX+REMV DUOD 12/04/2013 WHIPPLE performed by Andi Marley MD at [facility] Prescriptions Prior to Admission Medication Sig Dispense Refill Last Dose ??? empagliflozin/metformin HCl (SYNJARDY ORAL) Take by mouth. 04/10/2018 at Unknown time ??? triamterene-hydrochlorothiazide (MAXZIDE 25) 37.5-25 mg tablet Take 1 Tab by mouth daily. 04/10/2018 at Unknown time ??? docusate sodium (COLACE) 100 mg capsule Take 1 Capsule (100 mg) by mouth 2 times daily Take while taking narcotics for pain. 30 Capsule 0 12/15/2016 ??? POTASSIUM GLUCONATE ORAL Take 595 mg by mouth Daily LATE. 04/09/2018 ??? docusate sodium (COLACE) 100 mg capsule Take 100 mg by mouth 2 times daily as needed for Constipation. 12/15/2016 ??? Cholecalciferol, Vitamin D3, 3,000 unit Tablet Take 2,000 mg by mouth. 04/09/2018 ??? MULTIVITAMIN WITH MINERALS (HAIR,SKIN AND NAILS ORAL) Take by mouth. 04/09/2018 ??? Ginkgo Biloba 120 mg Tablet daily.. 12/15/2016 ??? omeprazole (PRILOSEC) 20 mg Capsule, Delayed Release(E.C.) Take 20 mg by mouth daily. 04/09/2018 ??? multivitamin (DAILY-JASPER) tablet Take 1 Tab by mouth daily. 04/09/2018 ??? L GASSERI/B BIFIDUM/B LONGUM ([employer] ORAL) Take by mouth. 12/15/2016 ??? Omeprazole Magnesium (PRILOSEC) 2.5 mg Oral SuDR Take by mouth daily. 12/15/2016 ??? B.ANI/L.ACI/L.YONATAN/L.PLAN/L.GUERA (PROBIOTIC FORMULA ORAL) Take by mouth daily. 04/09/2018 Allergies Allergen Reactions ??? Adhesive Other (See [...] Procedure Notes * Edmond Gant MD - 04/11/2018 8:19 AM CDTAssociated Order(s): COLONOSCOPY REPORT [facility] Endoscopy Patient Name: Elena Fernández Procedure Date: 04/11/2018 Date of : 1950 Admit Type: Outpatient Attending MD: Edmond Gant MD Procedure: Colonoscopy Indications: Screening for colorectal malignant neoplasm Providers: Edmond Gant MD Referring MD: Jareth [...] Number of Addenda: [address]; [place] [address] * Edmond Gant MD - 04/11/2018 8:15 AM CDTAssociated Order(s): UPPER ENDOSCOPY REPORT [facility] Endoscopy Patient Name: Elena Fernández Procedure Date: 04/11/2018 Date of : 1950 Admit Type: Outpatient Attending MD: Edmond Gant MD Procedure: Upper GI endoscopy Indications: epigastric pain, history of Whipple for neoplastic process of the pancreas. Providers: Edmond Gant MD Referring MD: Jareth [...] esophageal mucosa was without erythema or ulceration. There was evidence of prior surgical anatomy consistent with her history of Whipple surgery. The anastomosis was clean and intact with patent efferent and afferent limbs. Just proximal to the anastomosis there was a 10-12 mm nodular area of tissue questionable for hyperplastic versus reactive tissue. The nodule was resected using cold snare polypectomy and collected for review. A single endoclip was placed across the wound. The efferent and afferent lumen and mucosa were normal. Retroflexion from the stomach showed a small hiatal hernia otherwise normal proximal stomach. Impression: Surgical anatomy, Whipple, intact with patent efferent and afferent limbs. no ulcers. Small distal gastric nodule/polyp, sp polypectomy. Normal efferent and afferent jejunal mucosa. Recommendation: Follow clinically Follow up histology from polyp to determine need for surveillance. Edmond Gant MD 04/11/2018 8:15:13 AM This report has been signed electronically. Number of Addenda: 0 [address] [facility]; [place] [address] documented in this encounter OR Notes * Amirah-OP - Fabiola Sapp RN - 04/11/2018 6:38 AM CDT Patient/Family discussion included an explanation that: Standard practice for endoscopists at [facility] includes use of an oral bite block to facilitate upper endoscopy and to prevent you from biting onto the scope or yourself during the procedure.This bite block is placed by a [facility] procedure room nurse/biology specimen technician prior to the procedure. Pressure that [...] same day or prompt dental evaluation by [facility] Dental Medicine. * Amirah-OP - Fabiola Sapp RN - 04/11/2018 6:38 AM CDT Routine Pre-Anesthesia Protocol for GI Lab Procedures ?? [facility] ? ORDERS ARE ENTERED ???PER PROTOCOL? Enter the protocol in the patient???s electronic health record using [employer]: .anestprotocolgilab ?? NURSING ORDERS: Monitoring: ?? Obtain and record vital signs ?? Continuous vital signs (Non-invasive blood pressure, pulse oximetry and cardiac monitoring) for all inpatients and all patients currently taking beta-blockers ?? Place #20 gauge IV in non-dominant, non-operative or not otherwise excluded upper extremity ?? Contact responsible anesthesiologist if recommending use of a #22 gauge IV ?? See medication section for local Anesthetic to use to initiate IV ?? LABORATORY ORDERS: Screening Protocol: ? Urine bHCG (serum if necessary) Female of menses, or age > 12 y/o ?? Point of Care Testing: FOR PATIENTS WITH A HISTORY OF DIABETES, RECEIVING INSULIN, OR EXHIBITING SIGNS AND SYMPTOMS OF HYPOGLYCEMIA. ? POC glucose on initial assessment ?? POC glucose every 4 hours if NPO ?? POC glucose within 30 minutes of discharge or transfer to another unit (the time based intra-procedure POC check may be deferred during short procedures at the discretion of the provider) ?? POC for any patient exhibiting signs and symptoms of hypoglycemia ?? If POC Glucose results are critical, do not delay treatment. If appropriate, may confirm POC with: Nursing Only [id number] (this lab can be obtained at no cost to the patient when confirming a criticalhigh or critical low POC glucose ?? MEDICATION ORDERS: ? Local Anesthetic to use to initiate IV line: Lidocaine 2% 0.3mL intradermal ONE TIME to numb area of IV catheter insertion PRN. ?IV Fluid - Adult patients (age 18 years or greater): ? Lactated ringer???s solution to infuse at 125mL/hr, may discontinue upon discharge from procedure area ?? Patient specific modification as indicated: ? If patient is found to have a serum creatinine >2 or history of renal failure, RN may change fluid to NS at 10ml/hr ?? Contact provider to consider dextrose containing fluids for: ? NPO patients who have received PO or injectable antihyperglycemic agents and glucose is less than 100 mg/dl ?? NPO patients who have NOT received PO or injectable antiHYPERglycemic agents and POC glucose is less than 70 mg/dL. ? When receiving report on an inpatient, confirm if patient is receiving dextrose containing fluids to prevent hypoglycemia. Communicate with the anesthesiologist and request glucose containing fluids be continued or added to intraoperative fluids. ?? Any time a patient???s enteral or parenteral nutrition is interrupted for longer than four hoursand POC glucose or serum glucose is less than 100 mg/dL contact provider for dextrose containing fluids ? Notify provider for any POC glucose or serum glucose less than 70 mg/dL. RESCUE MEDICATION ORDERS - entered by the Pharmacist second language tutor ? Meter Glucose less than 70, patient CONSCIOUS, able to swallow and allowed oral intake: ?? ? Give carbohydrates orally, choose one: ?? Give 15 gram food choice such as: Regular soda (6 oz), Apple juice (4 oz), Sugar, 1 tablespoon (4 packets or 5 cubes), or 1 container regular Jello. ?? Reminder: avoid mixing sugar into a drink such as soda or juice, as this will constitute 30 grams of carbs with the sugar and drink. ? Recheck POC Glucose: ?? Recheck POC Glucose every 15 minutes and re-treat with 15 grams of carbohydrates until blood glucose is 70 mg/dL or greater. Once POC glucose result is 70 mg/dL or greater after hypoglycemic episode, POC glucose to be checked every 30 minutes for 3 consecutive occurrences with results of 70 mg/dL or greater, then resume previous POC Glucose check orders. ? Meter Glucose less than 70, IV Access, patient UNCONSCIOUS, unable to swallow and/or NPO ?? ? Give dextrose IV: ?? Dextrose 50%, give 12.5grams IV push ONE TIME ? Recheck POC Glucose: ?? Recheck POC Glucose and re-treat every 15 minutes with 12.5 g of Dextrose 50%. Once POC Glucose 70 mg/dL or greater after hypoglycemic episode, POC glucose to be checked every 30 minutes for 3 occurrences, then resume previous POC Glucose check orders ? Meter Glucose less than 70, NO IV Accessible, patient UNCONSCIOUS, unable to swallow and/or NPO ?? ? Give glucagon IM ?? Glucagon (GLUCAGEN) 1 mg IM ONE TIME ?? Recheck POC Glucose: ?? Recheck blood glucose 15 minutes after administration of glucagon and re- treat accordingly. After administration of glucagon is complete insert peripheral IV and notify physician. ?? Once POC Glucose result is 70 mg/dL or greater after hypoglycemic episode, POC glucose to be checked every 30 minutes for 3 consecutive occurrences with results 70 mg/dL or greater, then resume previous POC orders ?? After Hypoglycemic Symptoms Subside and NOT NPO, Give a Snack o?SNACK CHOICES: Should include 1 carb and 1 fat servin saltine crackers and 2 teaspoonspeanut butter; or 1 slice of bread and 2 teaspoons peanut butter; or 1 oz cheese and 6 saltine crackers; or 1 cup 2% milk and 6 saltine crackers. ? Initiating Department(s): 07/2009 OR; Anesthesia; Nursing; GI Lab Reviewed: 09/03/2012, 06/2015, 10/2017 Revised: 09/03/2012, 06/2015 ?Approved by: Medical Executive Committee, Nursing Leadership, Pharmacy &??Therapeutics Committee ?Date:11/2017 documented in this encounter Plan of Treatment Not on file documented as of this encounter Procedures Procedure Name Priority Date/Time Associated Diagnosis Comments COLONOSCOPY REPORT 04/11/2018 8: 20 AM CDT UPPER ENDOSCOPY REPORT 8 8:16 AM CDT POC GLUCOSE Routine 04/11/2018 8:12 AM CDT PATHOLOGY Pathology 04/11/2018 7:39 AM CDT ESOPHAGOGASTRODUODENOSCOPY 04/11 7:21 AM CDT COLONOSCOPY 04/11/2018 7:21 AM CDT POC GLUCOSE Routine 04/11/2018 6:50 AM CDT documented in this encounter Results * COLONOSCOPY REPORT (04/11/2018 8:20 AM CDT) Narrative Procedure Note Edmond Gant MD - 04/11/2018 8:19 AM CDT [facility] Endoscopy Patient Name: Elena Fernández Procedure Date: 04/11/2018 Date of : 1950 Admit Type: Outpatient Attending MD: Edmond Gant MD Procedure: Colonoscopy Indications: Screening for colorectal malignant neoplasm Providers: Edmond Gant MD Referring MD: Jareth [...] of Addenda: 0 [address] ; [place] [address] Edmond Gant MD GI PROCEDURE ORDERAB LES * UPPER ENDOSCOPY REPORT (04/11/2018 8:16 AM CDT) Narrative Procedure Note Edmond Gant MD - 04/11/2018 8:15 AM CDT [facility] Patient Name: Elena Fernández Procedure Date: 04/11/2018 Date of : 1950 Admit Type: Outpatient Attending MD: Edmond Gant MD Procedure: Upper GI endoscopy Indications: epigastric pain, history of Whipple for neoplastic process of the pancreas. Providers: Edmond Gant MD Referring MD: Jareth [...] esophageal mucosa was without erythema or ulceration. There was evidence of prior surgical anatomy consistent with her history of Whipple surgery. The anastomosis was clean and intact with patent efferent and afferent limbs. Just proximal to the anastomosis there was a 10-12 mm nodular area of tissue questionable for hyperplastic versus reactive tissue. The nodule was resected using cold snare polypectomy and collected for review. A single endoclip was placed across the wound. The efferent and afferent lumen and mucosa were normal. Retroflexion from the stomach showed a small hiatal hernia otherwise normal proximal stomach. Impression: Surgical anatomy, Whipple, intact with patent efferent and afferent limbs. no ulcers. Small distal gastric nodule/polyp, sp polypectomy. Normal efferent and afferent jejunal mucosa. Recommendation: Follow clinically Follow up histology from polyp to determine need for surveillance. Edmond Gant MD 04/11/2018 8:15:13 AM This report has been signed electronically. Number of Addenda: 0 [address] ; [place] [address] Edmond Gant MD GI PROCEDURE ORDERAB LES * (ABNORMAL) POC GLUCOSE (04/11/2018 8:12 AM CDT) GLUCOSE POC 114(H) 74 - 99 mg/dL 04/11/2018 8:24 AM CDT [facility] [employer] [facility] [employer] LABORER NAME JUAN GOODMAN 04/11/2018 8:24 AM CDT [facility] Whole blood specimen (specimen) 04/11/2018 8:12 AM CDT 04/11/2018 8:24 AM CDT Edmond Gant MD POINT OF CARE TESTIN G [facility] CLIA# [id number] [address] [place] [address] * PATHOLOGY (04/11/2018 7:39 AM CDT) CASE REPORT Surgical Pathology Report ? Case: [id number] ? Authorizing Provider: ??Edmond Gant MD ?Collected: ? 04/11/2018 07:39 AM ? Ordering Location: ? [facility] [address] ??Received: ?04/11/2018 08:56 AM ? Pathologist: ? Liborio Wall, DO ? Specimens: ?? A) - Stomach, distal stomach nodule ? B) - Colon, right polyps ? 04/12/2018 6:11 PM [facility] [employer] [facility] FINAL DIAGNOSIS Stomach, distal nodule, endoscopic biopsy: - Hyperplastic polyp, inflamed. - Adjacent mucosa with reactive (chemical) gastropathy. Large bowel, right colon polyps, endoscopic biopsy: - Tubular adenoma. - Sessile serrated adenoma, several fragments. 04/12/2018 6:11 PM [facility] [employer] [facility] IMEN DESCRIPTION (A) Distal stomach nodule; (B) right colon polyps. 04/12/2018 6:11 PM [facility] OPERATIVE PROCEDURE Colonoscopy and EGD. 04/12/2018 6:11 PM [facility] CLINICAL DIAGNOSIS (A) Rule out dysplasia. (B) Colon polyp(s). Adenomatous vs. hyperplastic vs. other. 04/12/2018 6:11 PM [facility] GROSS DESCRIPTION Received are two containers labeled Elena Fernández. Received in the first container, additionally labeled (A) distal stomach nodule is a 0.9 x 0.7 x 0.5-cm, polypoid piece of glistening, pink-mackay mucosa. The margin is inked blue. The specimen is bisected and entirely submitted in cassette A1. Received in the second container labeled (B) righ colon polyps are seven pieces of red-mackay, glistening, mucosa-covered tissue ranging from 0.4 to 2.0 cm in greatest dimension. All are submitted as follows: B1-four pieces and fragments of clotted blood; B2-one piece bisected; B3-one piece bisected; B4-one piece trisected. ABEL/cassy 04/12/2018 6:11 PM [facility] [employer] [facility] MICROSCOPIC DESCRIPTION The slides are received labeled [id number] and Elena Fernández. Sections of the distal stomach nodule show a polypoid fragment of gastric mucosa with hyperplastic foveolar glands, compatible with a hyperplastic polyp. There is fairly brisk acute and chronic inflammation with associated reactive epithelial changes. At the base of the polyp, there are changes compatible with mucosal prolapse. Foci of pancreatic acinar metaplasia are noted. No dysplasia or carcinoma is identified. There is benign mucosa adjacent to the polyp with changes compatible with a reactive (chemical) gastropathy. This portion of the case has been reviewed at the pathology intradepartmental review conference on April 12, 2018. Sections of the right colon polyps show a tubular adenoma and several fragments of sessile serrated adenoma. No high grade dysplasia or invasive carcinoma is identified. 04/12/2018 6:11 PM CDT [facility] COMMENT Special stain and/or immunohistochemical results are interpreted with controls that demonstrate appropriate staining reactions. Note on use of immunocytochemistry reagents: This test was developed and its performance characteristic determined by [facility], Department of Laboratory Medicine. It has not [...] WF, WB and WH are performed by [address], [address]. All other case types are performed by [facility] [address] [facility], [address]. 04/12/2018 6:11 PM CDT [facility] Tissue ENTIRE STOMACH / Unknown Collection / Unknown 04/11/2018 7:39 AM CDT 04/11/2018 8:56 AM CDT Comment:R/o dysplasia Tissue specimen (specimen) SPECIMEN FROM COLON / Unknown 04/11/2018 7:56 AM CDT 04/11/2018 8:56 AM CDT Comment:Colon Polyp(s). El omatous vs hyperplastic vs other. Edmond Gant MD PATHOLOGY/CYTOLOGY O RDERABLES [facility] CLIA# [id number] [address] [place] [address] [place] [address] * (ABNORMAL) POC GLUCOSE (04/11/2018 6:50 AM CDT) GLUCOSE POC 121(H) 74 - 99 mg/dL 04/11/2018 7:05 AM CDT [facility]ORATORY [facility] COMMENT, GLU POC Notified RN/MD 04/11/2018 7:05 AM CDT [facility] [employer] LAB[employer]ER NAME POC FABIOLA SAPP 04/11/2018 7:05 AM CDT [facility] Whole blood specimen (specimen) 04/11/2018 6:50 AM CDT 04/11/2018 7:05 AM CDT Edmond Gant MD POINT OF CARE TESTIN G [facility] CLIA# [id number] [address] [place] [address] documented in this encounter Visit Diagnoses Not on filedocumented in this encounter Administered Medications Inactive Administered Medications - up to 3 most recent administrations Medication Order MAR Action Action Date Dose Rate Site lactated Ringers solution IV, at 125 mL/hr, PRE-PROCEDURE CONTINUOUS, Starting on Wed04/11/18 at 0645, Until Wed04/11/18 at 1104, Routine, Pre-Procedure Continue from Pre-Op 04/11/2018 7:24 AM CDT New Bag 04/11/2018 6:54 AM CDT 125 mL/hr documented in this encounter Active and Recently Administered Medications Times are shown in CDT. Continuous Medication Order 04/09/2018 04/10/2018 04/11/2018 lactated Ringers solution IV, at 125 mL/hr, PRE-PROCEDURE CONTINUOUS, Starting on Wed04/11/18 at 0645, Until Wed04/11/18 at 1104, Routine, Pre-Procedure 0654 (New Bag - Prov ider: Fabiola Sapp RN)0724 (Continue from Pre-Op - Provider: Bigg Back)0803 (Fluid Volume - Provider: Bigg Back)0820 (Stopped - Provider: Suzan Ortiz RN) documented in this encounter Care Teams Audit Practice Intern Relationship Specialty Start Date End Date Jareth Lopez MD [address] [place] [id number] PCP - General Family Practice 04/11/13 documented as of this encounter
--- OUTSIDE RECORDS SUMMARY | 2024-09-27 17:40 | XMS_ITS | Encounter Summary ---
Author Organization [facility] Address [address] [place] [address] Care Team Providers Care Sheeter Waxer Operator Name Role Phone Jareth Lopez MD Primary Care Provider [phone] Reason for Referral * Outpatient Services (Urgent) - Closed Specialty Diagnoses / Procedures Referred By Contac t Referred To Contact CT Scan Diagnoses Pancreas cancer Vomiting bile Procedures CT ABDOMEN PELVIS W CONTRAST Andi Marley MD [address] [place] [address] Referral ID Status Reason Start Date Expiration Date V isits Requested Visits Authorized [id number] Closed [facility] CTS 02/07/2014 03/08/2014 1 1 Reason for Visit * Reason Onset Date Comments Results 02/07/2014 Encounter Details Date Type Department Care Team (Late st Contact Info) Description 02/07/2014 Telephone [facility] Surgical Spec [place] [address] [place] [address] Zohreh Suh, RN Results Social History Tobacco Use Types Packs/Day Years Used Date Smoking Tobacco: Never Alcohol Use Standard Drinks/Week Comments No 0 (1 standard drink = 0.6 oz pur e alcohol) Sex and Gender Information Value Date Recorded Sex Assigned at Not on file Gender Identity Not on file Sexual Orientation Not on file documented as of this encounter Miscellaneous Notes * Addendum Note - Zohreh Suh, RN - 02/07/2014 10:59 AM CDTAddended by: ZOHREH SUH on: 02/07/2014 10:59 AM Modules accepted: Orders * Telephone Encounter - Zohreh Suh RN - 02/07/2014 10:56 AM CDT Pt made aware Dr Marley wishes her to have CT this week Will order * Telephone Encounter - Zohreh Suh RN - 02/07/2014 9:38 AM CDT Pt called and states nausea and vomiting on and off since 02/01/2014 yellow bile. Compazine not helping. Pt states on and off low grade temp but no readings done.She states and cramps but no pain Will discuss with Dr Marley documented in this encounter Plan of Treatment [...] discussed above. Dictated from [facility] Narrative 02/07/2014 4:[address] abdomen pelvis [...] discussed above. Dictated from [facility] Andi Marley MD CT ORDERABLES documented in this encounter Visit Diagnoses Diagnosis Pancreas cancer- Primary Malignant neoplasm of pancreas, part unspecified Vomiting bile Bilious emesis Pancreas cancer Malignant neoplasm of pancreas, part unspecified Vomiting bile Bilious emesis documented in this encounter Care Teams Sheeter Waxer Operator Relationship Specialty Start Date End Date Jareth Lopez MD [address] [place] [address] PCP - General Family Practice 04/11/13 documented as of this encounter
--- OUTSIDE RECORDS SUMMARY | 2024-09-27 17:40 | XMS_ITS | Encounter Summary ---
Author Organization [facility] Address [address] [place] [address] Care Team Providers Care Automotive Specialty Technician Name Role Phone Jareth Lopez MD Primary Care Provider [phone] Reason for Visit * Reason Comments Post-op Visit Encounter Details Date Type Department Care Team (Late st Contact Info) Description 02/25/2016 4:15 PM CDT Office Visit [facility] Surgical Spec [place] [address] [place] [address] Andi Marley MD [address] [place] [address] Incisional hernia, without obstruction or gangrene (Primary Dx) Social History Tobacco Use Types [...] Sign Reading Time Taken Comments Blood Pressure 128/70 02/25/2016 4:14 PM CDT rig ht wrist Pulse 88 02/25/2016 4:14 PM CDT Temperature - - Respiratory Rate 20 02/25/2016 4:14 PM CDT Oxygen Saturation - - Inhaled Oxygen Concentration - - Weight 74.4 kg (164 lb) 02/25/2016 4:14 PM CDT Height 160 cm (5' 3 ) 02/25/2016 4:14 PM CDT Body Mass Index 29.05 02/25/2016 4:14 PM CDT documented in this encounter Progress Notes * Andi Marley MD - 02/26/2016 2:57 PM CDT Patient returns after her ventral incisional hernia repair. She has no trouble with her incision other than some slight ecchymosis. She is pleased with the result of the incision. She has no need forpain medication. She has no nausea or vomiting. Exam-well healed upper transverse incision. No evidence of recurrent hernia Plan-continue light activities and wearing her binder for another 3 weeks. Return to see me at thattime. We'll do another CT scan in a year for followup of her pancreatic adenocarcinoma documented in this encounter Plan of Treatment Not on file documented as of this encounter Visit Diagnoses Diagnosis Incisional hernia, without obstruction or gangrene- Primary Incisional hernia without mention of obstruction or gangrene documented in this encounter Care Teams Automotive Specialty Technician Relationship Specialty Start Date End Date Jareth Lopez MD [address] [place] [address] PCP - General Family Practice 04/11/13 documented as of this encounter
--- OUTSIDE RECORDS SUMMARY | 2024-09-27 17:40 | XMS_ITS | Encounter Summary ---
Author Organization [facility] Address [address] [place] [address] Care Team Providers Care Sheet Rock Sander Name Role Phone Jareth Lopez MD Primary Care Provider [phone] Reason for Referral * Outpatient Services (Routine) - Closed Specialty Diagnoses / Procedures Referred By Vasquez gibbs Referred To Contact CT Scan Diagnoses Pancreatic adenocarcinoma Procedures CT ABDOMEN PELVIS W CONTRAST Andi Marley MD [address] [place] [address] Referral ID Status Reason Start Date Expiration Date V isits Requested Visits Authorized [id number] Closed [facility] CTS 12/24/2014 01/22/2015 1 1 Reason for Visit * Auth/Cert - Closed Specialty Diagnoses / Procedures Referred By Vasquez gibbs Referred To Contact Radiology [facility] Scan [address] [place] [address] Referral ID Status Reason Start Date Expiration Date Visits Re quested Visits Authorized [id number] Closed 1 1 Encounter Details Date Type Department Care Team (Latest Contact Info) Description 12/25/2014 8:59 AM CDT - 12/25/2014 11:59 PM CDT Hospital [facility] [address] [address] [place] [address] Andi Marley MD [address] [place] [id number] Discharge Disposition: Home or Self Care Social [...] Sig Dispensed Refills Start Date End Date triamterene-hydrochloroth iazide (MAXZIDE 25) 37.5-25 mg tablet Take 1 Tab by mouth daily. L GASSERI/B BIFIDUM/B LONGUM ([employer] ORAL) Take by mouth. METHYLCELLULOSE (CITRUCEL ORAL) Take by mouth daily. 015 documented as of this encounter Miscellaneous Notes * Treatment Plan - Amira Arteaga RN - 12/25/2014 9:23 AM CDT Images from the original note were not included. documented in this encounter Plan of Treatment Not on file documented as of this encounter Procedures Procedure Name Priority Date/Time Associated Diagnosis Comments CT ABDOMEN PELVIS W CONTRAST Routine 12/25/2014 9:44 AM CDT Pancreatic adenocarcinoma POC CREATININE Routine 12/25/2014 9:29 AM CDT documented in this encounter Results * CT ABDOMEN PELVIS W CONTRAST (12/25/2014 9:44 AM CDT) Anatomical Region Laterality Modality Abdomen Computed Tomogra phy 12/25/2014 9:34 AM CDT Impressions 12/25/2014 11:30 AM CDT IMPRESSION: 1. Fatty infiltration of the liver. 2. Status post Whipple procedure. 3. No convincing radiographic evidence of acute abdominal or pelvic disease. Dictated from location [address] [place] [address]. DLP = ??[id number] Narrative 12/25/2014 11:30 AM [...] abdominal or pelvic disease. Dictated from location - [facility]. DLP = [phone] ORDERABLES * POC CREATININE (12/25/2014 9:29 AM CDT) CREATININE POC 0.7 0.5 - 1.0 mg/dL INTERFACE SYSTEM Comment: The calculation for the estimated GFR on the i-STAT POC instrument has been changed to correspond to the IDMS-traceable MDRD Study, upon the recommendation of the newspaper carrier of the i-STAT instrument. ??The change was effective in our laboratory 09/10/2008. ??The impact of this change to the estimated GFR is minimal. ??This calculation is used by the main laboratory methodology also. [employer] LICENSE [id number] 1 INTERFACE SYSTEM GFR, >60 >=60 mL/min/1. 7 sq meter INTERFACE SYSTEM GFR >60 >=60 mL/min/1. 7 sq meter INTERFACE SYSTEM Blood 12/25/2014 9:29 AM CDT 12/25/2014 9:29 AM CDT Andi Marley MD POINT OF CARE TESTIN Danilo INTERFACE SYSTEM Refer to clinic/hospital department documented in this encounter Visit Diagnoses Diagnosis Pancreatic adenocarcinoma Malignant neoplasm of pancreas, part unspecified documented in this encounter Administered Medications Inactive Administered Medications - up to 3 most recent administrations Medication Order MAR Action Action Date Dose Rate Site iohexol (OMNIPAQUE) 240 mg/mL oral solution 50 mL 50 mL, Oral, PRE-PROCEDURE ONCE, 1 dose, Starting on 12/25/14 at 0944, Until Tu12/25/14 at 0900, Routine Given 12/25/2014 9:00 AM CDT 50 mL ioversol (OPTIRAY 320) 320 mg iodine/mL syringe 125 mL 125 mL, IV, INTRA-PROCEDURE ONCE, 1 dose, Starting on 12/25/14 at 0944, Until 12/25/14 at 0945 Given 12/25/2014 9:45 AM CDT 125 mL documented in this encounter Care Teams Sheet Rock Sander Relationship Specialty Start Date End Date Jareth Lopez MD [address] [place] [address] PCP - General Family Practice 04/11/13 documented as of this encounter
--- OUTSIDE RECORDS SUMMARY | 2024-09-27 17:40 | XMS_ITS | Encounter Summary ---
Author Organization [facility] Address [address] [place] [address] Care Team Providers Care Finish Specialist Name Role Phone Jareth Lopez MD Primary Care Provider Encounter Details Date Type Department Care Team (Late st Contact Info) Description 04/03/2021 Abstract [facility] Gastroenterology [place] [address] [place] [address] Edmond Gant MD [address] [facility] [address] [place] [address] Social History Tobacco Use Types [...] on filedocumented in this encounter Care Teams Finish Specialist Relationship Specialty Start Date End Date Jareth Lopez MD [address] [place] [address] PCP - General Family Practice 04/11/13 documented as of this encounter
--- OUTSIDE RECORDS SUMMARY | 2024-09-27 17:40 | XMS_ITS | Encounter Summary ---
Author Organization [facility] Address [address] [place] [address] Care Team Providers Care Clinical Statistical Programmer Name Role Phone Jareth Lopez MD Primary Care Provider Reason for Visit * Reason Comments Post-op Visit panc Encounter Details Date Type Department Care Team (Latest Contact Info) Description 01/18/2014 10:30 AM CDT Office Visit [facility] Surgical Spec [place] [address] [place] [address] Andi Marley MD [address] [place] [address] Pancreatic adenocarcinoma (Primary Dx) Social [...] Sign Reading Time Taken Comments Blood Pressure 138/83 01/18/2014 10:38 AM CDT Pulse 103 01/18/2014 10:38 AM CDT Temperature - - Respiratory Rate 18 01/18/2014 10:38 AM CDT Oxygen Saturation - - Inhaled Oxygen Concentration - - Weight 78.9 kg (174 lb) 01/18/2014 10:38 AM CDT Height 163.8 cm (5' 4.5 ) 01/18/2014 10:38 AM CD T Body Mass Index 29.41 01/18/2014 10:38 AM CDT documented in this encounter Progress Notes * Andi Marley MD - 01/18/2014 4:25 PM CDT Patient returns for further followup after her Whipple procedure. She is having intermittent nauseabut no vomiting. Her energy level is improving. Her bowel movements are normal color and are not floating. She has not lost any further weight. [id number] transverse incision with no signs of infection or hernia. Abdomen is otherwise soft nondistended nontender Plan-continue weight loss her diet. She can exercise as tolerated. Return to see me in 5 months with a repeat [address] scan to be sure there is no recurrence of her pancreatic adenocarcinoma documented in this encounter Plan of Treatment Not on file documented as of this encounter Visit Diagnoses Diagnosis Pancreatic adenocarcinoma- Primary Malignant neoplasm of pancreas, part unspecified documented in this encounter Care Teams Clinical Statistical Programmer Relationship Specialty Start Date End Date Jareth Lopez MD [address] [place] [address] PCP - General Family Practice 04/11/13 documented as of this encounter
--- OUTSIDE RECORDS SUMMARY | 2024-09-27 17:40 | XMS_ITS | Encounter Summary ---
Author Organization [facility] Address [address] [place] [address] Care Team Providers Care Hse Specialist Name Role Phone Jareth Lopez MD Primary Care Provider Reason for Referral * Outpatient Services (Routine) - Closed Specialty Diagnoses / Procedures Referred By Contac t Referred To Contact CT Scan Diagnoses History of pancreatic cancer Procedures CT ABDOMEN PELVIS W CONTRAST CT ABDOMEN PELVIS W WO CONTRAST Andi Marley MD [address] [place] [address] Referral ID Status Reason Start Date Expiration Date V isits Requested Visits Authorized [id number] Closed [facility] CTS 11/24/2017 12/23/2017 1 1 NDER RUNNER Encounter Details Date Type Department Care Team (Late st Contact Info) Description 11/10/2017 Orders Only [facility] Surgical Spec [place] [address] [place] [address] Judy Suh RN History of pancreatic cancer (Primary Dx) Social History Tobacco Use Types [...] Results * CT ABDOMEN PELVIS W CONTRAST (12/21/2017 9:44 AM CDT) Anatomical Region Laterality Modality Abdomen Computed Tomogra phy 12/21/2017 9:48 AM CDT Impressions 12/21/2017 10:03 AM CDT IMPRESSION: ?? Stable CT of the abdomen and pelvis without evidence of metastatic disease. DICTATION LOCATION: Location 1 - [facility] 12/21/2017 10:[address] OF THE ABDOMEN AND PELVIS WITH INTRAVENOUS CONTRAST DATE: 12/21/2017 9:44 AM HISTORY: History of pancreatic cancer. COMPARISON: 12/15/2016 TECHNIQUE: Spiral volumetric acquisition of the abdomen and pelvis was performed with intravenous contrast. Gastrointestinal contrast was utilized. CONTRAST: Iopamidol 61% intravenous solution Given:120 mL FINDINGS: Images of the lung bases demonstrate a calcified nodule within the right lower lobe. Images of the abdomen demonstrate homogeneous enhancement of the liver and spleen without focal lesions. The adrenal glands are unremarkable. The patient is status post Whipple procedure. No mass lesions are noted in the remaining pancreas. No pancreatic or biliary ductal dilatation is seen. The kidneys are functioning bilaterally without evidence of hydronephrosis or renal lesions. No adenopathy or ascites is present. No bowel dilatation is seen. Scattered atherosclerotic vascular calcification is noted. Images of the pelvis demonstrate no adenopathy or ascites. No bowel dilatation is seen. The uterus is within normal limits in size. No adnexal masses are seen. Diverticulosis of the sigmoid colon is present without evidence of diverticulitis. The urinary bladder is largely decompressed. Procedure Note Cristiana Rosenberg MD - 12/21/2017 CT OF THE ABDOMEN AND PELVIS WITH INTRAVENOUS CONTRAST DATE: 12/21/2017 9:44 AM HISTORY: History of pancreatic cancer. COMPARISON: 12/15/2016 TECHNIQUE: Spiral volumetric acquisition of the abdomen and pelvis was performed with intravenous contrast. Gastrointestinal contrast was utilized. CONTRAST: Iopamidol 61% intravenous solution Given:120 mL FINDINGS: Images of the lung bases demonstrate a calcified nodule within the right lower lobe. Images of the abdomen demonstrate homogeneous enhancement of the liver and spleen without focal lesions. The adrenal glands are unremarkable. The patient is status post Whipple procedure. No mass lesions are noted in the remaining pancreas. No pancreatic or biliary ductal dilatation is seen. The kidneys are functioning bilaterally without evidence of hydronephrosis or renal lesions. No adenopathy or ascites is present. No bowel dilatation is seen. Scattered atherosclerotic vascular calcification is noted. Images of the pelvis demonstrate no adenopathy or ascites. No bowel dilatation is seen. The uterus is within normal limits in size. No adnexal masses are seen. Diverticulosis of the sigmoid colon is present without evidence of diverticulitis. The urinary bladder is largely decompressed. IMPRESSION: Stable CT of the abdomen and pelvis without evidence of metastatic disease. DICTATION LOCATION: Location 1 - [facility] Andi Marley MD CT ORDERABLES documented in this encounter Visit Diagnoses Diagnosis History of pancreatic cancer- Primary Personal history of malignant neoplasm of other site in gastrointestinal tract History of pancreatic cancer Personal history of malignant neoplasm of other site in gastrointestinal tract documented in this encounter Care Teams Hse Specialist Relationship Specialty Start Date End Date Jareth Lopez MD [address] [place] [address] PCP - General Family Practice 04/11/13 documented as of this encounter
--- OUTSIDE RECORDS SUMMARY | 2024-09-27 17:40 | XMS_ITS | Encounter Summary ---
Author Organization [facility] Address [address] [place] [address] Care Team Providers Care Lawn Mower Repairer Name Role Phone Jareth Lopez MD Primary Care Provider Encounter Details Date Type Department Care Team (Latest Contact Info) Description 03/21/2015 3:06 PM CDT - 03/21/2015 11:59 PM [facility] Hospital Encounter [facility] [address] [place] [id number] Truman Streeter MD [address] [facility] [address] [place] [address] Discharge Disposition: Home or Self Care Anesthesia [...] an stop data 1146 An Stop Meds * Agents No agents on file. [...] Sign Reading Time Taken Comments Blood Pressure 134/82 03/21/2015 3:33 PM CDT Pulse 88 03/21/2015 3:33 PM CDT Temperature - - Respiratory Rate - - Oxygen Saturation 98% 03/21/2015 3:33 PM CDT Inhaled Oxygen Concentration - - Weight 68.5 kg (151 lb) 03/21/2015 3:33 PM CDT Height 160 cm (5' 3 ) 03/21/2015 3:33 PM CDT Body Mass Index 26.75 03/21/2015 3:33 PM CDT documented in this encounter Medications at Time of Discharge Medication Sig Dispensed Refills Start Date End Date omeprazole (PRILOSEC) 20 mg Capsule, Delayed Release(E.C.) Take 20 mg by mouth daily. multivitamin (DAILY-JASPER) tablet Take 1 Tab by mouth daily. triamterene-hydrochloroth iazide (MAXZIDE 25) 37.5-25 mg tablet Take 1 Tab by mouth daily. L GASSERI/B BIFIDUM/B LONGUM ([facility] Repair Report [facility] ORAL) Take by mouth. HYDROcodone-acetaminophen (NORCO) 10-325 [...] daily. 015 documented as of this encounter OR Notes * Anesthesia PAT Evaluation - Landen Osman MD - 03/21/2015 3:55 PM CDT Pre-Procedure Anesthesiology Consultation and Evaluation (PACE) Service 03/21/2015 3:55 PM Name: Elena Schultz Age: 64 y.o. Sex: female CSN: [id number] Procedure:SPINAL MICRODISCECTOMY MINIMALLY INVASIVE - LEFT L5-S1 M.I. DISCECTOMY (Left Spine Lumbar) Surgeon: Truman Streeter MD Allergies Allergen Reactions ??? Adhesive Other (See Comments) Blisters ??? Codeine Other (See Comments) Respiratory arrest ??? Nickel Other (See Comments) Sores ??? Oxycodone Other (See Comments) Can tolerate small dose ??? Penicillins Anaphylaxis Respiratory distress ??? Sulfa (Sulfonamide Antibiotics) Hives Internal and external hives Current Outpatient Prescriptions Medication Sig Dispense Refill ??? omeprazole (PRILOSEC) 20 mg Capsule, Delayed Release(E.C.) Take 20 mg by mouth daily. ??? sulindac (CLINORIL) 200 mg Tablet Take 200 mg by mouth. ??? cyclobenzaprine (FLEXERIL) 10 mg tablet Take 10 mg by mouth 2 times daily. ??? multivitamin (DAILY-JASPER) tablet Take 1 Tab by mouth daily. ??? traMADol (ULTRAM) 50 mg tablet Take 50 mg by mouth every 6 hours as needed for Pain. ??? triamterene-hydrochlorothiazide (MAXZIDE 25) 37.5-25 mg tablet Take 1 Tab by mouth daily. ??? L GASSERI/B BIFIDUM/B LONGUM ([facility] ORAL) Take by mouth. ??? Omeprazole Magnesium (PRILOSEC) 2.5 mg Oral SuDR Take by mouth daily. ??? B.ANI/L.ACI/L.YONATAN/L.PLAN/L.GUERA (PROBIOTIC FORMULA ORAL) Take by mouth daily. ??? METHYLCELLULOSE (CITRUCEL ORAL) Take by mouth daily. ??? ACETAMINOPHEN (TYLENOL ORAL) Take by mouth. Prn headache No current facility-administered medications for this encounter. Advised pt to take the following medications on the morning of surgery: Omeprazole, maxide Advised pt to stop taking the following medications one week prior to surgery: ASA/ NSAIDs Patient Active Problem List Diagnosis Date Noted [...] performed by Andi Marley MD at [facility] History Substance Use Topics ??? Smoking status: Never Smoker ??? Smokeless tobacco: Not on file ??? Alcohol Use: No Family History Problem Relation Age of Onset ??? Healthy Father ??? Other Father blood poisoning ??? Lung Cancer Mother ??? Lung Cancer Maternal Grandfather ??? Cancer Maternal Aunt colon ??? Cancer Maternal Aunt leukemia ??? Lung Cancer Maternal Aunt Previous Anesthesia Problems/Concerns:: No anesthesia problems/complications History of PONV: No S/P Whipple (12/04/2013) S/P Whipple Type: ETT; Cuff Pressure: cuff inflated; Size: 7; Site: mouth; Attempts: 1; FOV: I; cm: 23; Device:Straight Blade; Blade: 2; Secured: secured with tape; Circoid: Yes; Verification: Auscultated bilateral breath sounds, Equal chest movement, Continuous waveform capnography Review of Systems Cardiovascular: positive for lower extremity edema, negative for chest pain, chest pressure/discomfort, claudication, diaphoresis, exertional chest pressure/discomfort, fatigue, heart racing, irregular heart beats, lightheadedness, nausea, near-syncope, no new cardiac symptoms, orthopnea, palpitations, paroxysmal nocturnal dyspnea, shortness of breath/dyspnea, syncope Positive for MVP; HTN Exercise Tolerance:Level of Stairs 2 Respiratory: negative Tobacco:Never Snores: none JUDITH:no Gastroenterology: positive for reflux symptoms and history of pancreatic Cancer S/P Whipple (12/04/2013) Neurological: negative Renal:negative Endocrine: Diabetes Type II; thyroid disease negative Musculoskeletal: positive for back pain Hepatic:negative Hematologic:negative PHYSICAL EXAM BP 134/82 mmHg Pulse 88 Ht 5' 3 (1.6 m) Wt 151 lb (68.493 kg) BMI 26.76 kg/m2 SpO2 98% Weight: Weight: 151 lb (68.493 kg) (03/21/15 1533) Height: Ht Readings from Last 1 Encounters: 03/21/15 5' 3 (1.6 m) BMI: Body mass index is 26.76 kg/(m^2). General Appearance: Alert, oriented, no acute distress Airway: normal range of motion and supple; Airway Class: II (soft palate, uvula, fauces visible); Special Considerations Mouth Opening 3+ Finger Breadth Dentition: good Lungs: clear to auscultation bilaterally, normal respiratory effort Heart: regular rate and rhythm, S1, S2 normal, no murmur, click, rub or gallop Neuro: alert, oriented x 3, no defects noted in general exam. Extremities: extremities normal, atraumatic, no cyanosis or edema LABS Lab Results Component Value Date/Time WBC 12.9* 12/21/2013 04:00 PM HEMOGLOBIN 13.3 12/21/2013 04:00 PM HEMATOCRIT 41.1 12/21/2013 04:00 PM PLATELETS 450* 12/21/2013 04:00 PM MCV 93.6 12/21/2013 04:00 PM Lab Results Component Value Date/Time SODIUM 139 12/21/2013 04:00 PM POTASSIUM 4.2 12/21/2013 04:00 PM CHLORIDE 94* 12/21/2013 04:00 PM CO2 28 12/21/2013 04:00 PM CALCIUM 10.4* 12/21/2013 04:00 PM BUN 20 12/21/2013 04:00 PM CREATININE 0.83 12/21/2013 04:00 PM POC CREATININE 0.7 12/25/2014 09:29 AM GLUCOSE 160* 12/21/2013 04:00 PM Lab Results Component Value Date/Time INR 1.0 11/27/2013 03:00 PM PROTIME 13.5 11/27/2013 03:00 PM No results found for: HCGURPOC, HCGQUALUR, HCGQUAL, HCGQUANT, HCGINTACT EKG: (03/21/2015) normal sinus rhythm with sinus arrythmia, unchanged from 11/27/2013 Other Studies/Considerations: None Risks/Alternatives discussed. Questions solicited and answered. Yes Postop pain management discussed no Smoking/Tobacco Counseling: None Recommendations:GERD Attestations: (Not in a hospital admission) History Smoking status ??? Never Smoker Smokeless tobacco ??? Not on file Patient screened for tobacco use and identified as a Non-User of tobacco. I obtained, updated or reviewed the patient's current medications including dosage, frequency, and route of administration. This information was obtained directly from the patient or credit representative or caregiver or another available healthcare resource and updated in [facility] EMR. REPORT AND NECESSARY FOLLOW-UP History and physical performed in [place], tests (ECG, blood work) reviewed. Abnormal Results Found: no Further Testing or Evaluation Required: no Final [place] Center Review: May proceed with procedure/surgery: yes Landen Osman MD 3:55 PM 03/21/2015 Zone documented in this encounter Plan of Treatment Not on file documented as of this encounter Procedures Procedure Name Priority Date/Time Associated Diagnosis Comments TYPE AND SCREEN Routine 03/21/2015 4:43 PM CDT CBC WITH DIFFERENTIAL Routine 03/21/2015 4:12 PM CDT PTT Routine 03/21/2015 4:12 PM CDT PROTIME-INR Routine 03/21/2015 4:12 PM CDT BASIC METABOLIC PANEL Routine 03/21/2015 4:12 PM CDT EKG 12-LEAD Routine 03/21/2015 3:36 PM CDT URINALYSIS WITH REFLEX CULTURE Routine 03/21/2015 3:31 PM CDT URINE CULTURE Routine 03/21/2015 3:31 PM CDT documented in this encounter Results * TYPE AND SCREEN (03/21/2015 4:43 PM CDT) ABO GROUP O 03/21/2015 11:12 PM CDT [facility] RH (D) TYPE Positive 03/21/2015 11:12 PM CDT [facility] ANTIBODY SCREEN Negative 03/21/2015 11:12 PM CDT [facility] Blood specimen (specimen) 03/21/2015 4:43 PM CDT 03/21/2015 4:43 PM CDT Truman Streeter MD BLOOD BANK ORDERABLE S [facility] CLIA# [id number] [address] [place] [address] * CBC WITH DIFFERENTIAL (03/21/2015 4:12 PM CDT) WBC 8.2 4.0 - 9.8 K/uL 03/21/2015 4:35 PM CDT [facility] RBC 4.38 3.90 - 4.90 M/uL 03/21/2015 4:35 PM CDT [email or web address] HEMOGLOBIN 14.0 11.8 - 14.8 g/dL 03/21/2015 4:35 PM CDT [email or web address] HEMATOCRIT 40.6 35.5 - 44.0 % 03/21/2015 4:35 PM CDT [email or web address] MCV 92.7 82.0 - 99.0 fL 03/21/2015 4:35 PM CDT [email or web address] MCH 32.0 27.2 - 32.6 pg 03/21/2015 4:35 PM CDT [email or web address] MCHC 34.5 30.0 - 36.0 g/dL 03/21/2015 4:35 PM CDT [email or web address] RDW 12.7 11.5 - 14.5 % 03/21/2015 4:35 PM CDT [email or web address] RDW-STDEV 42.1 37.1 - 48.7 fL 03/21/2015 4:35 PM CDT [email or web address] PLATELETS 266 140 - 350 K/uL 03/21/2015 4:35 PM CDT [email or web address] MPV 11.5 9.3 - 12.4 fL 03/21/2015 4:35 PM CDT [email or web address] NEUTROPHILS 65 45 - 70 % 03/21/2015 4:35 PM CDT [email or web address] LYMPHOCYTES 23 16 - 45 % 03/21/2015 4:35 PM CDT [email or web address] - . [facility] MONOCYTES 8 3 - 13 % 03/21/2015 4:35 PM CDT [email or web address] - . [facility] EOSINOPHILS 4 <7 % 03/21/2015 4:35 PM CDT [facility] . [facility] BASOPHILS 0 <3 % 03/21/2015 4:35 PM CDT [email or web address] NEUTROPHIL ABSOLUTE 5.31 1.90 - 7.00 K/uL 03/21/2015 4:35 PM CDT [email or web address] LYMPHOCYTE ABSOLUTE 1.91 0.70 - 4.50 K/uL 03/21/2015 4:35 PM CDT [facility] . [facility] MONOCYTE ABSOLUTE 0.62 0.10 - 1.30 K/uL 03/21/2015 4:35 PM CDT [facility]. [facility] EOSINOPHIL ABSOLUTE 0.29 <0.70 K/uL 03/21/2015 4:35 PM CDT [facility] - . [facility] BASOPHILS ABSOLUTE 0.02 <0.30 K/uL 03/21/2015 4:35 PM CDT [facility] - . [facility] Blood 03/21/2015 4:12 PM CDT 03/21/2015 4:12 PM CDT Truman Streeter MD HEMATOLOGY ORDERABLE S [facility] - [facility]# [id number] [address] [facility] [place] [address] * (ABNORMAL) BASIC METABOLIC PANEL (03/21/2015 4:12 PM CDT) SODIUM 138 136 - 145 mmol/L 03/21/2015 4:59 PM CDT [email or web address] POTASSIUM 4.0 3.5 - 5.0 mmol/L 03/21/2015 4:59 PM CDT [email or web address] CHLORIDE 96(L) 98 - 107 mmol/L 03/21/2015 4:59 PM CDT [email or web address] CO2 31(H) 22 - 29 mmol/L 03/21/2015 4:59 PM CDT [email or web address] - . [facility] CALCIUM 9.6 8.6 - 10.2 mg/dL 03/21/2015 4:59 PM CDT [email or web address] - . [facility] BUN 14 8 - 23 mg/dL 03/21/2015 4:59 PM CDT [email or web address] - . [facility] CREATININE 0.58 0.51 - 0.95 mg/dL 03/21/2015 4:59 PM CDT [email or web address] - . [facility] GLUCOSE 115(H) 79 - 99 mg/dL 03/21/2015 4:59 PM CDT [email or web address] - . [facility] GFR >60 >=60 mL/min/1.7 3 sq meter 03/21/2015 4:59 PM CDT [email or web address] Comment: eGFR has not been validated for [...] GFR, >60 >=60 mL/min/1.7 3 sq meter 03/21/2015 4:59 PM CDT [facility] ANION GAP 11 8 - 16 mmol/L 03/21/2015 4:59 PM CDT [facility] Blood 03/21/2015 4:12 PM CDT 03/21/2015 4:12 PM CDT Truman Streeter MD CHEMISTRY ORDERABLES [facility] [employer] [facility]# [id number] [address] [facility] [place] [address] * PROTIME-INR (03/21/2015 4:12 PM CDT) PROTIME 13.6 12.7 - 15.1 Seconds 03/21/2015 4:39 PM CDT [facility] INR 1.1 0.9 - 1.1 03/21/2015 4:39 PM CDT [email or web address] Comment: INR Therapeutic Range: Adult: ?? 2.0 - 3.0 for pulmonary embolism or prophylaxis against venous ?thrombosis or systemic embolization. 2.0 - 3.0 for patients with tissue heart valves. 2.5 - 3.5 for patients with mechanical heart valves or post VA. Pediatric ??(12 years and under): 1.5 - 3.0 Although the target range in children is not well established, ?INR values of 1.5 - 3.0 are recommended for most patients. ?Higher values have been used in children with prosthetic ?cardiac valves and hereditary clotting disorders. [place] (<3 days) therapeutic ranges have not been established. Blood 03/21/2015 4:12 PM CDT 03/21/2015 4:12 PM CDT Truman Streeter MD HEMATOLOGY ORDERABLE S Performing Organization Address [facility] de Phone Number [facility] [employer] [facility]# [id number] [address] [place] [address] * PTT (03/21/2015 4:12 PM CDT) PTT 28.0 24.4 - 36.4 seconds 03/21/2015 4:40 PM CDT [facility] [employer] [facility] Comment: PTT Therapeutic Range: Heparin Level ? PTT (seconds) <0.10 units/mL ? <53 0.10 - 0.30 units/mL ? 53 - 67 0.30 - 0.70 units/mL* ?67 - 95* 0.70 - 1.00 units/mL ? 95 - 116 *corresponds to therapeutic range for unfractionated heparin Blood 03/21/2015 4:12 PM CDT 03/21/2015 4:12 PM CDT Truman Streeter MD HEMATOLOGY ORDERABLE S Performing Organization Address [facility] de Phone Number [facility] [employer] [facility]# [id number] [address] [place] [address] * EKG 12-LEAD (03/21/2015 3:36 PM CDT) 03/21/2015 3:36 PM CDT Narrative INTERFACE SYSTEM - 03/22/2015 8:35 AM CDT ? Stationary ECG Study ? [facility] ? Test Date: ?03/21/2015 3:36 PM Pat Name: ? ELENA SCHULTZ ?Department: ?? 7 ?Room: ? Gender: ? F ?Mill Tender Second Operator: ?? : ?1950 ? Requested By: TRUMAN Almeida Order Number: [id number] ?Reading MD: ?? López Downey ? Measurements Intervals ?[place] ? Rate: ? 88 ? P: ?53 [place]: ? 153 ?QRS: ?29 QRSD: ? 102 ?T: ?74 QT: ? 364 ? QTc: ?442 ? Interpretive Statements ? SINUS RHYTHM WITH SINUS ARRHYTHMIA IN A PATTERN OF BIGEMINY ABNORMAL RHYTHM ECG Electronically Signed On 03-22-2015 8:35:39 CDT by López Downey Procedure Note Provider, Mega Pacheco MD - 12/16/2021 Stationary ECG Study [facility] Test Date: 03/21/2015 3:36 PM Pat Name: ELENA SCHULTZ Department: 7 Room: Gender: F Mill Tender Second Operator: : 1950 Requested By: TRUMAN Almeida Order Number: [id number] Reading MD: López Downey Measurements Intervals [place] Rate: 88 P: 53 [place]: 153 QRS: 29 QRSD: 102 T: 74 QT: 364 QTc: 442 Interpretive Statements SINUS RHYTHM WITH SINUS ARRHYTHMIA IN A PATTERN OF BIGEMINY ABNORMAL RHYTHM ECG Electronically Signed On 03-22-2015 8:35:39 CDT by López Downey Truman Streeter MD ECG ORDERABLES Performing Organization Address City/State/[facility] Co de Phone Number INTERFACE SYSTEM Refer to clinic/hospital department * URINE CULTURE (03/21/2015 3:31 PM CDT) CULTURE No growth at 24 hours ANGELA METHOD AEROBIC CULTURE 03/22/2015 3:11 PM CDT [email or web address] Urine, clean catch URINE SPECIMEN OBTAINED BY CLEAN CATCH PROCEDURE / Unknown Collection / Unknown 03/21/2015 3:31 PM CDT 03/21/2015 4:11 PM CDT Truman Streeter MD MICROBIOLOGY - GENER AL ORDERABLES [facility] CLIA# [id number] [address] [facility] [place] [address] * (ABNORMAL) URINALYSIS WITH REFLEX CULTURE (03/21/2015 3:31 PM CDT) COLOR UA Yellow Pale to Dark Yellow 03/21/2015 4:55 PM CDT [email or web address] CLARITY UA Clear Clear 03/21/2015 4:55 PM T [email or web address] SPECIFIC GRAVITY UA 1.004 1.003 - 1.035 03/21/2015 4:55 PM T [email or web address] PH UA 6.0 5.0 - 8.0 03/21/2015 4:55 PM T [email or web address] LEUKOCYTE ESTERASE UA 1+(A) Negative 03/21/2015 4:55 PM T [email or web address] NITRITE UA Negative Negative 03/21/2015 4:55 PM CDT [email or web address] PROTEIN UA Negative Negative 03/21/2015 4:55 PM CDT [employer] [facility] GLUCOSE UA Negative Negative 03/21/2015 4:55 PM CDT [email or web address] KETONES UA Negative Negative 03/21/2015 4:55 PM T [email or web address] UROBILINOGEN UA Normal <2.0 mg/dL 03/21/2015 4:55 PM CDT [email or web address] BILIRUBIN UA Negative Negative 03/21/2015 4:55 PM CDT [email or web address] BLOOD UA Negative Negative 03/21/2015 4:55 PM CDT [facility] - [facility] WBC UA 6-10(A) 0 - 2 /hpf 03/21/2015 4:55 PM CDT [facility] RBC UA 0-2 0 - 2 /hpf 03/21/2015 4:55 PM CDT [facility] BACTERIA UA Negative Negative /hpf 03/21/2015 4:55 PM CDT [facility] Urine, clean catch Collection / Unknown 03/21/2015 3:31 PM CDT 03/21/2015 4:11 PM CDT Narrative [facility] - 03/21/2015 4:55 PM CDT Based on results, a urine culture has been reflexed. Truman Streeter MD URINE ORDERABLES [facility]# [id number] [address] [facility] [place] [address] documented in this encounter Visit Diagnoses Not on filedocumented in this encounter Care Teams Lawn Mower Repairer Relationship Specialty Start Date End Date Jareth Lopez MD [address] [place] [address] PCP - General Family Practice 04/11/13 documented as of this encounter
--- OUTSIDE RECORDS SUMMARY | 2024-09-27 17:40 | XMS_ITS | Encounter Summary ---
Author Organization [facility] Address [address] [place] [address] Care Team Providers Care Security Police Name Role Phone Jareth Lopez MD Primary Care Provider Reason for Visit * Reason Onset Date Comments Insurance Issues 04/17/2021 Peer to Peer Encounter Details Date Type Department Care Team (Late st Contact Info) Description 04/17/2021 Telephone [facility] [place] [address] [facility] [address] [place] [address] Edmond Gant MD [address] [address] Insurance Issues (Peer to Peer) Social History Tobacco Use Types Packs/Day Years [...] have Coronavirus / COVID-19? No / Unsure 04/11/2021 3:59 PM CDT documented as of this encounter Miscellaneous Notes * Telephone Encounter - Dorcas Greene - 04/18/2021 9:[address]T Good Morning Dr. Gant, This pt has a colon/EGD scheduled with you on 04/24/21. [facility] (Antonella) authorized the colonoscopy but they are requiring a peer to peer for the EGD. You last saw the pt in 2018. Would you like to have them in for an OV prior to the peer to peer? I can withdraw the request if so. If you would like to go ahead with a peer to peer their number is [phone] and the Order ID is [id number]. Please advise how to proceed. Thank you so much! Dorcas Greene Auth/Cert Team GI documented in this encounter Plan of Treatment Not on file documented as of this encounter Visit Diagnoses Not on filedocumented in this encounter Care Teams Security Police Relationship Specialty Start Date End Date Jareth Lopez MD [address] [place] [address] PCP - General Family Practice 04/11/13 documented as of this encounter
--- OUTSIDE RECORDS SUMMARY | 2024-09-27 17:40 | XMS_ITS | Encounter Summary ---
Author Organization [facility] Address [address] [place] [address] Care Team Providers Care Tray Packer Name Role Phone Jareth Lopez MD Primary Care Provider Reason for Referral * Outpatient Services (Routine) - Closed Specialty Diagnoses / Procedures Referred By Contac t Referred To Contact CT Scan Diagnoses Nodule of left lung Procedures CT CHEST W CONTRAST Andi Marley MD [address] [place] [phone] Referral ID Status Reason Start Date Expiration Date V isits Requested Visits Authorized [id number] Closed [facility] CTS 09/05/2015 10/04/2015 1 1 RIAL CONTROL ASSOCIATE Reason for Visit * Outpatient Services (Routine) - Closed Specialty Diagnoses / Procedures Referred By Contac bernie Referred To Contact CT Scan Diagnoses Nodule of left lung Procedures CT CHEST W CONTRAST Andi Marley MD [address] [place] [phone] Referral ID Status Reason Start Date Expiration Date V isits Requested Visits Authorized [id number] Closed STL CTS 09/05/2015 10/04/2015 1 1 Encounter Details Date Type Department Care Team (Latest Contact Info) Description 09/26/2015 8:26 AM MATERIAL CONTROL ASSOCIATE - 09/26/2015 11:59 PM MATERIAL CONTROL ASSOCIATE Hospital Encounter [facility] CT Scan [address] [place] [address] Andi Marley MD [address] [facility] [address] [place] [address] Discharge Disposition: Home or Self [...] tablet Take 1 Tab by mouth daily. triamterene-hydrochlorothi azide (MAXZIDE 25) 37.5-25 mg tablet Take 1 Tab by mouth daily. L GASSERI/B BIFIDUM/B LONGUM ([place] ORAL) Take by mouth. documented as of this encounter Miscellaneous Notes * Treatment Plan - Edmond Manuel, RT - 09/26/2015 8:35 AM CST Images from the original note were not included. RIAL CONTROL ASSOCIATE documented in this encounter Plan of Treatment Not on file documented as of this encounter Procedures Procedure Name Priority Date/Time Associated Diagnosis Comments CT CHEST W CONTRAST Routine 09/26/2015 8 :45 AM MATERIAL CONTROL ASSOCIATE Nodule of left lung POC CREATININE Routine 09/26/2015 8:35 AM MATERIAL CONTROL ASSOCIATE documented in this encounter Results * CT CHEST W CONTRAST (09/26/2015 8:45 AM MATERIAL CONTROL ASSOCIATE) Anatomical Region Laterality Modality Chest Computed Tomogra phy 09/26/2015 8:36 AM MATERIAL CONTROL ASSOCIATE Impressions 09/30/2015 7:42 AM MATERIAL CONTROL ASSOCIATE IMPRESSION: 1. The previous described left lower lobe nodule is unchanged. With the dedicated chest imaging, several additional groundglass nodules are identified, primarily within the left lower lobe. The findings are most suggestive of an infectious or inflammatory process, but nonetheless continued followup is recommended. 2. Additional findings as above. Dictated from Location 1: [facility] Narrative 09/30/2015 7:42 AM [address]ERIAL CONTROL ASS[address] CHEST WITH INTRAVENOUS CONTRAST DATE: September [...] findings as above. Dictated from Location 1: [facility] Andi Marley MD CT ORDERABLES * POC CREATININE (09/26/2015 8:35 AM MATERIAL CONTROL ASSOCIATE) CREATININE POC 0.70 0.50 - 1.00 mg/dL 09/26/2015 8:40 AM MATERIAL CONTROL ASSOCIATE [facility] GFR >60 >=60 mL/min/1.7 3 sq meter 09/26/2015 8:40 AM MATERIAL CONTROL ASSOCIATE [facility] Comment: eGFR has not been validated for [...] GFR, >60 >=60 mL/min/1.7 3 sq meter 09/26/2015 8:40 AM MATERIAL CONTROL ASSOCIATE [facility] Blood, capillary 09/26/2015 8:35 AM MATERIAL CONTROL ASSOCIATE 09/26/2015 8:40 AM MATERIAL CONTROL ASSOCIATE Andi Marley MD POINT OF CARE TESTIN G [facility]# [id number] [address] [facility] [address] documented in this encounter Visit Diagnoses Diagnosis Nodule of left lung Solitary pulmonary nodule documented in this encounter Administered Medications Inactive Administered Medications - up to 3 most recent administrations Medication Order MAR Action Action Date Dose Rate Site ioversol (OPTIRAY 320) 320 mg iodine/mL syringe 125 mL 125 mL, IV, INTRA-PROCEDURE ONCE, 1 dose, Starting on Marina 09/26/15 at 0834, Until Marina 09/26/15 at 0901 Given 09/26/2015 9:01 AM MATERIAL CONTROL ASSOCIATE 125 mL documented in this encounter Care Teams Tray Packer Relationship Specialty Start Date End Date Jareth Lopez MD [address] [place] [address] PCP - General Family Practice 04/11/13 documented as of this encounter
--- OUTSIDE RECORDS SUMMARY | 2024-09-27 17:40 | XMS_ITS | Encounter Summary ---
Author Organization [facility] Address [address] [place] [address] Care Team Providers Care Airport Representative Name Role Phone Jareth Lopez MD Primary Care Provider [phone] Reason for Referral * Outpatient Services (Routine) - Closed Specialty Diagnoses / Procedures Referred By Vasquez gibbs Referred To Contact CT Scan Diagnoses Pancreatic adenocarcinoma Procedures CT ABDOMEN PELVIS W CONTRAST Andi Marley MD [address] [place] [phone] Referral ID Status Reason Start Date Expiration Date V isits Requested Visits Authorized [id number] Closed STL CTS 06/04/2015 07/03/2015 1 1 Reason for Visit * Auth/Cert - Closed Specialty Diagnoses / Procedures Referred By Vasquez gibbs Referred To Contact Radiology [facility] Scan [address] [place] [address] Referral ID Status Reason Start Date Expiration Date Visits Re quested Visits Authorized [id number] Closed 1 1 Encounter Details Date Type Department Care Team (Latest Contact Info) Description 06/25/2015 9:10 AM CDT - 06/25/2015 11:59 PM CDT Hospital [facility] [address] [place] [address] Andi Marley MD [address] [place] [phone] Discharge Disposition: Home or Self Care Social [...] by mouth daily. L GASSERI/B BIFIDUM/B LONGUM ([place] ORAL) Take by mouth. documented as of this encounter Miscellaneous Notes * Treatment Plan - Beverly Montano RN - 06/25/2015 7:49 AM CDT Images from the original note were not included. documented in this encounter Plan of Treatment Not on file documented as of this encounter Procedures Procedure Name Priority Date/Time Associated Diagnosis Comments CT ABDOMEN PELVIS W CONTRAST Routine 06/25/2015 10:44 AM CDT Pancreatic adenocarcinoma POC CREATININE Routine 06/25/2015 9:26 AM CDT documented in this encounter Results * CT ABDOMEN PELVIS W CONTRAST (06/25/2015 10:44 AM CDT) Anatomical Region Laterality Modality Abdomen Computed Tomogra phy 06/25/2015 10:4 0 AM CDT Impressions 06/26/2015 10:58 AM CDT IMPRESSION: 1. There is a 1 cm density in the left hepatic lobe, which could represent a liver lesion. It is not seen on the prior exam and further evaluation is recommended to exclude metastatic disease. This can be obtained by MRI. 2. Colonic diverticulosis. There is some thickening of the sigmoid colon, which could be due to underdistention. Please correlate with bowel symptoms. 3. A 4 mm groundglass nodule in the left lower lobe, which is new. Chest CT in three months is recommended to exclude metastatic disease. DLP: 312.29 mGy-cm Dictated from Location 1: [facility] Narrative 06/26/2015 10:[address] ABDOMEN AND PELVIS WITH INTRAVENOUS CONTRAST, 06/25/2015 INDICATION: 64-year-old female with pancreatic adenocarcinoma. TECHNIQUE: Helical scanning of the abdomen and pelvis was performed with intravenous contrast material. COMPARISONS: CT 12/25/2014. FINDINGS: Images through the lung bases demonstrate a calcified pulmonary nodule in the right lower lobe. There is a groundglass a nodule in the left lower lobe measuring 4 mm, which is nonspecific. There is diffuse fatty infiltration of the liver. There is a possible 1 cm lesion in the left hepatic lobe lateral segment (image 49, series 2) not definitely seen on the prior exam. There is no intrahepatic biliary ductal dilatation. The spleen is within normal limits in size. There are postsurgical changes associated with prior Whipple procedure. The adrenal glands are unremarkable. Both kidneys enhance symmetrically and there is no hydronephrosis. No pathologically enlarged upper abdominal or retroperitoneal lymph nodes are seen. There is atherosclerosis of the aorta and iliac arteries. The uterus is present. There is colonic diverticulosis. There is some thickening of the proximal sigmoid colon, which could be due to underdistention or colitis. Please correlate with bowel symptoms. No inflammatory changes are seen around this segment of the colon. The appendix is not well seen. There is a small fat containing ventral hernia. There are degenerative changes in the lumbar spine. There is an 11 mm density in the right anterior abdomen. This could be due to some fat necrosis. It is grossly stable. Andi Marley MD CT ORDERABLES * POC CREATININE (06/25/2015 9:26 AM CDT) CREATININE POC 0.80 0.50 - 1.00 mg/dL 06/25/2015 9:30 AM CDT [facility] GFR >60 >=60 mL/min/1.7 3 sq meter 06/25/2015 9:30 AM CDT [facility] Comment: eGFR has not been validated for [...] GFR, >60 >=60 mL/min/1.7 3 sq meter 06/25/2015 9:30 AM CDT [facility] Blood, capillary 06/25/2015 9:26 AM CDT 06/25/2015 9:30 AM CDT Andi Marley MD POINT OF CARE TESTIN G [facility] Organization Address City/State/ZIP Co de Phone Number [facility]# [id number] [address] [facility] [place] [address] documented in this encounter Visit Diagnoses Diagnosis Pancreatic adenocarcinoma Malignant neoplasm of pancreas, part unspecified documented in this encounter Administered Medications Inactive Administered Medications - up to 3 most recent administrations Medication Order MAR Action Action Date Dose Rate Site iohexol (OMNIPAQUE) 240 mg/mL oral solution 50 mL 50 mL, Oral, PRE-PROCEDURE ONCE, 1 dose, Starting on Wed06/25/15 at 1047, Until Wed06/25/15 at 1047, Routine Given 06/25/2015 10:47 AM CDT 50 mL ioversol (OPTIRAY 320) 320 mg iodine/mL syringe 125 mL 125 mL, IV, INTRA-PROCEDURE ONCE, 1 dose, Starting on Wed06/25/15 at 1045, Until Wed06/25/15 at 1048 Given 06/25/2015 10:48 AM CDT 125 mL documented in this encounter Care Teams Airport Representative Relationship Specialty Start Date End Date Jareth Lopez MD [address] [place] [address] PCP - General Family Practice 04/11/13 documented as of this encounter
--- OUTSIDE RECORDS SUMMARY | 2024-09-27 17:40 | XMS_ITS | Encounter Summary ---
Author Organization [facility] Address [address] [place] [address] Care Team Providers Care Resource Management Specialist Name Role Phone Jareth Lopez MD Primary Care Provider Reason for Visit * Auth/Cert - Closed Specialty Diagnoses / Procedures Referred By Contac t Referred To Contact General Surgery Diagnoses HERNIATED LUMBAR DISC Procedures SPINAL MICRODISCECTOMY MINIMALLY INVASIVE [facility] [address] [place] [address] Referral ID Status Reason Start Date Expiration Date Visits Re quested Visits Authorized [id number] Closed 1 1 Encounter Details Date Type Department Care Team (Late st Contact Info) Description 03/29/2015 9:15 AM CDT - 03/29/2015 11:15 AM CDT Surgery [facility] Operating Room [address] [place] [address] Truman Streeter MD [address] [phone] SPINAL MICRODISCECTOMY MINIMALLY INVASIVE - LEFT L5-S1 M.I. DISCECTOMY Surgery Details Date/Time Status Location OR Service Patient Class Case Class Case Type Trauma Case? 03/29/2015 9:15 AM Posted [facility] OR MAIN OR 30 Neurological Surgery Surgical OP/Extended Care Elective No Panel 1 Procedure LRB Anes Op Region Wound Class Comments SPINAL MICRODISCECTOMY MINIMALLY INVASIVE - LEFT L5-S1 M.I. DISCECTOMY Left General Spine Lumbar Clean-I 23HR NICKEL NEEDS: АНДРЕЙ FLAT WITH SHANE FRAME, MICROSCOPE, MIDAS DRILL, MEDTRONIC METRIX, FLORO PQ 03/21 Surgeon Surgeon Role Service Panel Truman Streeter MD Primary Neurological Surgery 1 Case Notes BCBS, # [id number], CPT: 76612 documented in this encounter Social History Tobacco [...] Sign Reading Time Taken Comments Blood Pressure 149/79 03/29/2015 7:20 AM CDT Pulse 92 03/29/2015 7:20 AM CDT Temperature 36.4 ??C (97.5 ??F) 03/29/2015 7:20 AM CD T Respiratory Rate 18 03/29/2015 7:20 AM CDT Oxygen Saturation 99% 03/29/2015 7:20 AM CDT Inhaled Oxygen Concentration - - [...] the BRAT diet (Bananas, Rice, Applesauce and [place]). Pain Medication given at . Next dose [...] or come to the Emergency Room at [facility] ([phone]) or the nearest Emergency Room. In an [...] by mouth daily. L GASSERI/B BIFIDUM/B LONGUM ([place] ORAL) Take by mouth. HYDROcodone-acetaminophen (NORCO) 10-325 [...] Streeter MD - 03/29/2015 8:15 PM CDT [place], [place] [address] Operative Report CSN: [id number] DATE OF SERVICE: 03/29/2015 SURGEON Truman tSreeter MD PREOPERATIVE DIAGNOSIS Right L5-S1 disk herniation with radiculopathy. POSTOPERATIVE DIAGNOSIS Right L5-S1 disk herniation with radiculopathy. OPERATION NAME 1. Right L5-S1 microdiskectomy and foraminotomy. 2. Interpretation of intraoperative fluoroscopy. 3. Utilization of intraoperative microsurgical technique. PLASTICS BENCH MECHANIC YANCY Benjamin ANESTHESIA Endotracheal. COMPLICATION None. ESTIMATED [...] aspect of the set was drilled with Viewpoints high-speed air drill. The ligamentum flavum was removed exposing the thecal sac and the exiting nerve root.These were retracted medially, and there was a large free disk fragment and clear annular tear. Using the [place] and down pushing curettes, several large free [...] present for the duration of the procedure. KE:CHANDRAKANT DID: [id number] Dictated by: Truman Streeter MD * Anesthesia [...] - 03/29/2015 11:17 AM CDT Dictation #: [id number] * Operative Report - Truman Streeter MD - 03/29/2015 11:16 AM CDT Brief Post-Operative Note Pre-Operative Diagnosis: Right L5-S1 disc herniation with radiculopathy Post-Operative Diagnosis: Right L5-S1 disc herniation with radiculopathy Operation: Right L5-S1 microdiscectomy Surgeon: Truman Streeter MD, FACS Basket Braider: YANCY Benjamin Anesthetic: General Endotracheal Complications:None EBL: Minimal Truman Streeter MD, FACS Neurosurgery documented in this encounter Miscellaneous Notes * Care Plan - Clau Guzmán RN - 03/29/2015 1:35 PM CDT Potential for pain related to surgical/procedural intervention Interventions: Assess level of pain/comfort utilizing verbal/nonverbal pain scales; assess culturalor mandaen indicators attached to pain; administer pain medications [...] pain/comfort utilizing verbal/nonverbal pain scales; assess culturalor mandaen indicators attached to pain; administer pain medications [...] AM CDT HERNIATED LUMBAR DISC Case Notes BCBS, # [id number], CPT: 46709 POC GLUCOSE Routine 03/29/2015 7:32 AM CDT [...] - 99 mg/dL 03/29/2015 7:35 AM CDT [facility] Blood, capillary 03/29/2015 7:32 AM CDT 03/29/2015 7:35 AM CDT Truman Streeter MD POINT OF CARE [facility]ER [facility] Organization Address City/State/[facility] Co de Phone Number [facility]# [id number] [address] [place] [address] documented in this encounter Visit Diagnoses Not on filedocumented in this encounter Administered Medications Inactive Administered Medications - up to 3 most recent administrations Medication Order MAR Action Action Date Dose Rate Site bacitracin (BACI-IM) 50,000 Units in sodium chloride 0.9 % irrigation 500 mL IRRIGATION INTRA-PROCEDURE PRN, Starting on Wed03/29/15 at 1059, Until Wed03/29/15 at 1143, Routine, Intra-op Given 03/29/2015 10:59 AM CDT 450 mL Operative Site bupivacaine-EPINEPHrine (PF) (SENSORCAINE MPF WITH EPI) 0.5 %-1:200,000 injection INTRA-PROCEDURE PRN, Starting on Wed03/29/15 at 1110, Until Wed03/29/15 at 1143, Routine, Intra-op Given 03/29/2015 11:10 AM CDT 10 mL Operative Site hydromorPHONE (DILAUDID) 1 mg/mL injection 0.3 [...] 7:30 AM CDT 0.3 mL Arm, Left methylPREDNISolone Acetate (DEPO-MEDROL) 40 mg/mL injection INTRA-PROCEDURE PRN, Starting on Wed03/29/15 at 1105, Until Wed03/29/15 at 1143, Routine, Intra-op Given 03/29/2015 11:05 AM CDT 40 mg Operative Site vancomycin (VANCOCIN) IVPB 1,000 mg 1,000 mg [...] MD) documented in this encounter Care Teams Resource Management Specialist Relationship Specialty Start Date End Date Jareth Lopez MD [address] [place] [address] PCP - General Family Practice 04/11/13 documented as of this encounter
--- OUTSIDE RECORDS SUMMARY | 2024-09-27 17:40 | XMS_ITS | Encounter Summary ---
Author Organization [facility] Address [address] [place] [address] Attn: Epic Prelude ADT [place]A RIVERA [address] Care Team Providers Care Linen Folder Name Role Phone Jareth Lopez MD Primary Care Provider [phone] Encounter Details Date Type Department Care Team (Latest Contact Info) Description 04/11/2021 Travel Social History Tobacco Use Types Packs/Day [...] PM CDT documented as of this encounter Plan of Treatment Not on file documented as of this encounter Visit Diagnoses Not on filedocumented in this encounter Care Teams Linen Folder Relationship Specialty Start Date End Date Jareth Lopez MD [address] [place] [address] PCP - General Family Practice 04/11/13 documented as of this encounter
--- OUTSIDE RECORDS SUMMARY | 2024-09-27 17:40 | XMS_ITS | Encounter Summary ---
Author Organization [facility] Address [address] [place] [address] Care Team Providers Care Pressurised Container Filler Name Role Phone Jareth Lopez MD Primary Care Provider [phone] Encounter Details Date Type Department Care Team (Late st Contact Info) Description 12/27/2015 Orders Only [facility] Surgical Spec [place] [address] [place] [address] Andi Marley MD [address] [place] [address] Social History Tobacco Use Types Packs/Day Years [...] on filedocumented in this encounter Care Teams Pressurised Container Filler Relationship Specialty Start Date End Date Jareth Lopez MD [address] [place] [address] PCP - General Family Practice 04/11/13 documented as of this encounter
--- OUTSIDE RECORDS SUMMARY | 2024-09-27 17:40 | XMS_ITS | Encounter Summary ---
Author Organization [facility] Address [address] [place] [address] Care Team Providers Care Blast Furnace Keeper Name Role Phone Jareth Lopez MD Primary Care Provider Reason for Visit * Reason Comments Follow Up Encounter Details Date Type Department Care Team (Latest Contact Info) Description 12/24/2015 1:00 PM CDT Office Visit [facility] Surgical Spec [place] [address] [place] [address] Andi Marley MD [address] [place] [address] Pancreatic adenocarcinoma (Primary Dx); Incisional hernia, without obstruction or gangrene Social History Tobacco Use Types Packs/Day Years [...] Sign Reading Time Taken Comments Blood Pressure 126/75 12/24/2015 1:00 PM CDT rig ht wrist Pulse 105 12/24/2015 1:00 PM CDT Temperature - - Respiratory Rate 20 12/24/2015 1:00 PM CDT Oxygen Saturation - - Inhaled Oxygen Concentration - - Weight 76.7 kg (169 lb) 12/24/2015 1:00 PM CDT Height 160 cm (5' 3 ) 12/24/2015 1:00 PM CDT Body Mass Index 29.94 12/24/2015 1:00 PM CDT documented in this encounter Progress Notes * Andi Marley MD - 12/26/2015 9:14 AM CDT Subjective: 65-year-old female follows up for her pancreatic [...] radiate. She has no trouble with micturition Patient Active Problem List Diagnosis Date Noted [...] WHIPPLE performed by Andi Marley MD at [facility] ??? Hx lumbar diskectomy Left 03/29/2015 SPINAL MICRODISCECTOMY MINIMALLY INVASIVE - LEFT L5-S1 M.I. DISCECTOMY performed by Truman Streeter MD at [facility] (Not in a hospital admission) Allergies [...] major depressive episodes requiring hospitalization Objective: BP 126/75 mmHg Pulse 105 Resp 20 Ht 5' 3 (1.6 m) Wt 76.658 kg (169 lb) BMI 29.94 kg/m2 General: Alert, cooperative, no distress, appears [...] non-tender. Bowel sounds normal. No masses, No organomegaly.reducible ventral incisional hernia Extremities: Extremities normal, atraumatic, no cyanosis [...] is a ventral incisional hernia containing omentum Assessment: 65-year-old female status post Whipple for pancreatic adenocarcinoma with no recurrence and a ventral incisional hernia Plan: Ventral incisional hernia repair. We had a [...] after surgery and the use of a binder. I also pro vided an informational packet to the patient I will see her back in 6 months without a scan for her adenocarcinoma. I'll see her back in a year otherwise repeat scan documented in this encounter Plan of Treatment Not on file documented as of this encounter Visit Diagnoses Diagnosis Pancreatic adenocarcinoma- Primary Malignant neoplasm of pancreas, part unspecified Incisional hernia, without obstruction or gangrene Incisional hernia without mention of obstruction or gangrene documented in this encounter Care Teams Blast Furnace Keeper Relationship Specialty Start Date End Date Jareth Lopez MD [address] [place] [phone] PCP - General Family Practice 04/11/13 documented as of this encounter
--- OUTSIDE RECORDS SUMMARY | 2024-09-27 17:40 | XMS_ITS | Encounter Summary ---
Author Organization [facility] Address [address] [place] [address] Care Team Providers Care Cable Splicing Technician Name Role Phone Jareth Lopez MD Primary Care Provider Reason for Referral * Outpatient Services (Routine) - Closed Specialty Diagnoses / Procedures Referred By Contac t Referred To Contact CT Scan Diagnoses Pancreatic adenocarcinoma Procedures CT ABDOMEN PELVIS W CONTRAST Andi Marley MD [address] [place] [address] Referral ID Status Reason Start Date Expiration Date V isits Requested Visits Authorized [id number] Closed STL CTS 06/04/2015 07/03/2015 1 1 Reason for Visit * Reason Comments Follow Up 6 months Encounter Details Date Type Department Care Team (Latest Contact Info) Description 12/25/2014 1:00 PM CDT Office Visit [facility] Surgical Spec [place] [address] [place] [address] Andi Marley MD [address] [place] [address] Pancreatic adenocarcinoma (Primary Dx) Social [...] Sign Reading Time Taken Comments Blood Pressure 125/72 12/25/2014 12:49 PM CDT ri gt wrist Pulse 103 12/25/2014 12:49 PM CDT Temperature - - Respiratory Rate 20 12/25/2014 12:49 PM CDT Oxygen Saturation - - Inhaled Oxygen Concentration - - Weight 72.6 kg (160 lb) 12/25/2014 12:49 PM CDT Height 160 cm (5' 3 ) 12/25/2014 12:49 PM CDT Body Mass Index 28.34 12/25/2014 12:49 PM CDT documented in this encounter Progress Notes * Andi Marley MD - 12/25/2014 2:06 PM CDT Subjective: 64-year-old female who follows him one year after a 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 She is very pleased with her overall health as she has recently lost weight and off for diabetes medication. She has had one episode and nausea since being here 6 months ago but no further vomiting as she has stayed away from . She has alterations in her bowel habits but they are normal color. He has no incisional pain. She does feel a slight bulge at her incision. The bulge is slightly in the center and has minimal discomfort except when palpated. Discomfort is a 3 on scale 1-10. Patient Active Problem List Diagnosis Date Noted [...] WHIPPLE performed by Andi Marley MD at [facility] (Not in a hospital admission) Allergies [...] major depressive episodes requiring hospitalization Objective: BP 125/72 Pulse 103 Resp 20 Ht 5' 3 (1.6 m) Wt 160 lb (72.576 kg) BMI 28.35 kg/m2 General: Alert, cooperative, no distress, appears [...] non-tender. Bowel sounds normal. No masses, No organomegaly.small reducible ventral incisional hernia at the midline Extremities: Extremities normal, atraumatic, no cyanosis or edema. Pulses: 2+ and symmetric all extremities. Skin: Skin color, texture, turgor normal. No rashes or lesions. Lymph nodes: Cervical, supraclavicular, and axillary nodes normal. Neurologic: CNII-XII intact. Normal strength, sensation and reflexes throughout. DATA REVIEW CT scan abdomen pelvis was reviewed by myself which shows small ventral incisional hernia at the midline and no signs of recurrent pancreatic adenocarcinoma. Assessment: 64-year-old female one year status post Whipple procedure for a mucinous neoplasm which showed a small focus of pancreatic adenocarcinoma and currently has a ventral hernia Plan: Pancreatic carcinoma-no signs recurrence on exam. Followup with me in [address] scan Ventral incisional hernia repair. We had a [...] vided an informational packet to the patient patient will call back if this becomes more symptomatic as we discussed that we do not one to proceed with an emergent repair. documented in this encounter Plan of Treatment [...] DLP: 312.29 mGy-cm Dictated from Location 1: [facility] Narrative 06/26/2015 10:[address] ABDOMEN [...] grossly stable. Andi Marley MD CT ORDERABLES documented in this encounter Visit Diagnoses Diagnosis Pancreatic adenocarcinoma- Primary Malignant neoplasm of pancreas, part unspecified Pancreatic adenocarcinoma Malignant neoplasm of pancreas, part unspecified documented in this encounter Care Teams Cable Splicing Technician Relationship Specialty Start Date End Date Jareth Lopez MD [address] [place] [address] PCP - General Family Practice 04/11/13 documented as of this encounter
--- OUTSIDE RECORDS SUMMARY | 2024-09-27 17:40 | XMS_ITS | Encounter Summary ---
Author Organization [facility] Address [address] [place] [address] Care Team Providers Care Assembler Musical Equipment Name Role Phone Jareth Lopez MD Primary Care Provider [phone] Reason for Visit * Reason Comments Post-op Visit panc Encounter Details Date Type Department Care Team (Latest Contact Info) Description 01/04/2014 10:30 AM CDT Office Visit [facility] Surgical Spec [place] [address] [place] [address] Andi Marley MD [address] [place] [address] Pancreas cyst (Primary Dx); Pancreatic adenocarcinoma Social History Tobacco Use Types Packs/Day Years [...] Sign Reading Time Taken Comments Blood Pressure 131/80 01/04/2014 10:30 AM CDT Pulse 114 01/04/2014 10:30 AM CDT Temperature - - Respiratory Rate 18 01/04/2014 10:30 AM CDT Oxygen Saturation - - Inhaled Oxygen Concentration - - Weight 78.9 kg (174 lb) 01/04/2014 10:30 AM CDT Height 163.8 cm (5' 4.5 ) 01/04/2014 10:30 AM CD T Body Mass Index 29.41 01/04/2014 10:30 AM CDT documented in this encounter Progress Notes * Andi Marley MD - 01/04/2014 11:20 AM CDT Patient returns 3 weeks after her Whipple procedure for pancreatic adenocarcinoma. She has incisional pain which gets worse when she is since up or lifts something. She has no vomiting but has a lackof appetite. Her bowel movements are normal. She has no drainage from the incision. [id number] transverse incision with no signs of infection, abdomen is soft nondistended and other than incisional tenderness it feels appropriate Plan-follow with me in another 2 weeks. Continue small frequent meals. Report if she has any feversor persistent nausea vomiting documented in this encounter Plan of Treatment Not on file documented as of this encounter Visit Diagnoses Diagnosis Pancreas cyst- Primary Cyst and pseudocyst of pancreas Pancreatic adenocarcinoma Malignant neoplasm of pancreas, part unspecified documented in this encounter Care Teams Assembler Musical Equipment Relationship Specialty Start Date End Date Jareth Lopez MD [address] [place] [address] PCP - General Family Practice 04/11/13 documented as of this encounter
--- OUTSIDE RECORDS SUMMARY | 2024-09-27 17:40 | XMS_ITS | Encounter Summary ---
Author Organization [facility] Address [address] [place] [address] Care Team Providers Care Frame Stripper And Crusher Name Role Phone Jareth Lopez MD Primary Care Provider Reason for Visit * Auth/Cert Specialty Diagnoses / Procedures Referred By Contac t Referred To Contact General Surgery Diagnoses Ventral incisional hernia Procedures HERNIA VENTRAL REPAIR [facility] [address] [place] [address] Referral ID Status Reason Start Date Expiration Date Visits Re quested Visits Authorized [id number] 1 1 Encounter Details Date Type Department Care Team (Late st Contact Info) Description 02/07/2016 11:35 AM CDT Anesthesia Event [facility] Operating Room [address] [place] [address] Jamar Syed MD [address] [place] [address] Michaela Ryan CRNA [address] [place] [address] Anesthesia Record Procedure Summary Procedure [...] in accordance with procedure. Meds Name Total midazolam (VERSED) 1??mg/mL injection 2 mg lidocaine (XYLOCAINE) 2% injection 60 mg propofol (DIPRIVAN) 10??mg/mL injection 200 mg fentaNYL (SUBLIMAZE) PF 50??mcg/mL injec tion 100 mcg dexamethasone (DECADRON) 4 mg/mL injecti on 10 mg ondansetron (ZOFRAN) 4??mg/2 mL injectio n 4 mg diphenhydrAMINE (BENADRYL) 50 mg/mL inje ction 25 mg famotidine PF (PEPCID) 20mg/2 mL injecti on 20 mg hydromorPHONE (DILAUDID) 1 mg/mL injecti on 1 mg ketorolac (TORADOL) 30??mg/mL injection 15 mg lactated ringers solution 700 mL * Agents Name Sevoflurane % Sevoflurane O2 Inspired O2 N2O Inspired N2O * Blood No blood administrations on file. Lines, Drains, and Airways Type Details Placement Removal Peripheral IV Pre-Hospital Start: No; Orientation: Right; Location: AC; Device: Angiocath; Gauge: 22 gauge; Needle Length: 1 in length; Insertion Attempts: 1; Patient Tolerance: tolerated well; Power Injectable Compatible: Yes 06/25/15923 by Beverly Montano RN 04/11/18823 by Suzan Ortiz, [place] Endotracheal Airway Type: ETT; Cuff Pressure: minimal leak technique, minimal occluding volume, cuff inflated; Secured: secured with tape; Verification: Auscultated bilateral breath sounds, Equal chest movement, Continuous waveform capnography 02/07/16810 by Michaela Ryan, DISK GRINDER 02/07/16810 by Brian Chaves AA-C Peripheral IV Pre-Hospital Start: No; Orientation: Left; Location: Arm; Device: Angiocath; Gauge: 20 gauge; Insertion Attempts: 1; Patient Tolerance: tolerated well; Removal Indication: no longer indicated; Removal Interventions: pressure dressing, direct pressure, catheter intact 02/07/16923 by Lorna Yepez RN 02/07/16 162 by Renea Cary RN Adult Incision 02/07/16; 1214; surgical incision; other [...] OR Notes * Anesthesia Postprocedure Evaluation - Jennifer Hooper MD - 02/07/2016 1:40 PM CDT Phase I Postanesthesia Evaluation Including Modified Valerie Score Patient seen and evaluated: Modified Valerie Score: Score: 10 (02/07/161326) COMMENTS: No apparent Anesthesia related complications RESPIRATORY FUNCTION: Respiration: able to breath and cough freely (02/07/16 132) [2=able to breathe and cough freely, 1=dyspnea, limited breathing or tachypnea, 0=apnea or mechanicventilator] O2 Saturation: able to maintain O2 saturation greater than 92% on room air (02/07/16 1327) [2=able to maintain O2 saturation greater than 92% on room air, 1=needs O2 inhalation to maintain O2 saturation greater than 90%, 0=O2 saturation less than 90% even with O2 supplement] Resp: 13 (02/07/16 1330)SpO2: 94 % (02/07/16 1330) CARDIOVASCULAR FUNCTION: Heart Rate: 85 bpm (02/07/16 1330) BP: 133/63 mmHg (02/07/16 1330) Circulation: BP within 20% of preanesthetic level (02/07/16 1327) [2=BP within 20% of preanesthetic level, 1=BP within 20-49% of preanesthetic level, 0=BP within 50%of preanesthetic level] MENTAL STATUS, NEURO, ACTIVITY: PATIENT PARTICIPATION IN EVALUATION:yes Consciousness: fully awake (02/07/16 1327) [2=fully awake, 1=arousable on calling, 0=not responding] Activity: able to move 4 extremities voluntarily or on command (02/07/16 1327) [2=able to move 4 extremities voluntarily or on command, 1=able to move 2 extremities voluntarily or on command, 0=unable to move extremities voluntarily or on command] TEMPERATURE: Temp: 36.8 ??C (02/07/16 1242) PAIN: Pain Rating: Rest: 4 (02/07/16 1314) Presence of Pain: denies pain/discomfort (02/07/16 0845) NAUSEA AND VOMITING: no nausea and no vomiting POSTOPERATIVE HYDRATION: well hydrated Intake/Output Summary (Last 24 hours) at 02/07/16 1341 Last data filed at 02/07/16 1235 Gross per 24 hour Intake 700 ml Output 15 ml Net 685 ml Jennfier Hooper MD 02/07/2016 1:41 PM Jennifer Hooper MD * Anesthesia Handoff - Michaela Ryan CRNA - 02/07/2016 12:45 PM CDT Post-Anesthetic transfer of care report [...] 6. Set expectations for post-procedure period 7. Allowed opportunity for questions and acknowledgement of understanding. Vital Signs: BP: 112/63 mmHg (02/07/2016 12:42 PM) Pulse: 74 (02/07/2016 8:41 AM) Heart Rate: 75 bpm (02/07/2016 12:42 PM) Temp: 36.8 ??C (02/07/2016 12:42 PM) Resp: 16 (02/07/2016 12:42 PM) SpO2: 100 % (02/07/2016 12:42 PM) 12:45 PM Michaela Ryan CRNA * Anesthesia Preprocedure Evaluation - Jamar Syed MD - 02/07/2016 9:33 AM CDT Anesthesia Evaluation Anesthesia Plan ASA 2 MAC Intravenous induction Oral ETT airway maintenance NPO status > 8 hours Anesthetic plan and risks discussed with Patient. Plan discussed with Nurse National Accounts Recruiter. Pre-Anesthesia Evaluation - Long Form 02/07/2016 9:42 AM Name: Elena Fernández Age: 65 y.o. Sex: female CSN: [id number] Allergies Allergen Reactions ??? Adhesive Other (See Comments) Blisters ??? Codeine Other (See Comments) Respiratory arrest ??? Nickel Other (See Comments) Sores ??? Oxycodone Other (See Comments) Can tolerate small dose ??? Penicillins Anaphylaxis Respiratory distress ??? Sulfa (Sulfonamide Antibiotics) Hives Internal and external hives Prescriptions prior to admission Medication Sig Dispense Refill Last Dose ??? POTASSIUM GLUCONATE ORAL Take 595 mg by mouth Daily LATE. 02/06/2016 at Unknown time ??? docusate sodium (COLACE) 100 mg capsule Take 100 mg by mouth 2 times daily as needed for Constipation. 02/06/2016 at Unknown time ??? omeprazole (PRILOSEC) 20 mg Capsule, Delayed Release(E.C.) Take 20 mg by mouth daily. 02/07/2016 at 0530 ??? triamterene-hydrochlorothiazide (MAXZIDE 25) 37.5-25 mg tablet Take 1 Tab by mouth daily. 02/07/2016 at 0530 ??? Cholecalciferol, Vitamin D3, 3,000 unit Tablet Take 2,000 mg by mouth. 01/31/2016 ??? MULTIVITAMIN WITH MINERALS (HAIR,SKIN AND NAILS ORAL) Take by mouth. 01/31/2016 ??? Ginkgo Biloba 120 mg Tablet daily.. 01/31/2016 ??? multivitamin (DAILY-JASPER) tablet Take 1 Tab by mouth daily. 01/31/2016 ??? L GASSERI/B BIFIDUM/B LONGUM ([employer] [facility] ORAL) Take by mouth. Unknown ??? Omeprazole Magnesium (PRILOSEC) 2.5 mg Oral SuDR Take by mouth daily. not taking ??? B.ANI/L.ACI/L.YONATAN/L.PLAN/L.GUERA (PROBIOTIC FORMULA ORAL) Take by mouth daily. 06/25/2015 Current Facility-Administered Medications Medication Dose Route Frequency Provider Last Rate Last Dose ??? vancomycin in sodium chloride 0.9% (VANCOCIN) 1250 MG IVPB 1,250 mg 15 mg/kg IV Pre-Proc Once Andi Marley MD ??? lactated ringers solution IV Pre-Proc Continuous Lisandro Rose MD 100 mL/hr at 02/07/16 0926 1,000 mL at 02/07/16 09 ??? morphine 4 mg/mL injection 2 mg 2 mg IV Post-Proc q 5 min PRN Jamar Syed MD ??? fentaNYL PF (SUBLIMAZE) 50 mcg/mL injection 25 mcg 25 mcg IV Post-Proc q 3 min PRN Jamar Syed MD ??? fentaNYL PF (SUBLIMAZE) 50 mcg/mL injection 50 mcg 50 mcg IV Post-Proc q 3 min PRN Jamar Syed MD ??? ondansetron (ZOFRAN) 4 mg/2 mL injection 4 mg 4 mg IV Post-Proc Once PRN Jamar Syed MD ??? diphenhydrAMINE (BENADRYL) injection 25 mg 25 mg IV Post-Proc Once PRN Jamar Syed MD Patient Active Problem List Diagnosis Date Noted [...] GERD (gastroesophageal reflux disease) patient denies ??? Asthma as a child ??? 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 At risk for obstructive sleep apnea 01/27/2016 stop bang 2 ??? Edema, lower extremity pt takes triameterene/hctz ??? Cancer pancreas Past Surgical History Procedure Laterality Date ??? [...] Marley MD at [facility] ??? Hx lumbar diskectomy Left 03/29/2015 SPINAL MICRODISCECTOMY MINIMALLY INVASIVE - LEFT L5-S1 M.I. DISCECTOMY performed by Truman Streeter MD at [facility] History Substance Use Topics ??? Smoking status: [...] Anesthesia Problems/Concerns: No anesthesia problems/complications History of PONV No Review of Systems Cardiovascular: negative Respiratory: negative Gastroenterology: negative PHYSICAL EXAM BP 133/76 mmHg Pulse 74 Temp(Src) 36.3 ??C (Temporal) Resp 16 Ht 5' 3 (1.6 m) Wt 75.978 kg (167 lb 8 oz) BMI 29.68 kg/m2 SpO2 99% Weight: Weight: 75.978 kg (167 lb 8 oz) (02/07/16 0841) Height: Ht Readings from Last 1 Encounters: 01/27/16 5' 3 (1.6 m) BMI: Body mass index is 29.68 kg/(m^2). Airway: normal range of motion: Airway Class: II (soft palate, uvula, fauces visible); None Lungs: clear to auscultation bilaterally, normal respiratory effort Heart: regular rate and rhythm, S1, S2 normal, no murmur, click, rub or gallop Neuro: alert, oriented x 3, no defects noted in general exam. Vascular Access: None LABS Lab Results Component Value Date/Time WBC 8.2 03/21/2015 04:12 PM WBC 12.9* 12/21/2013 04:00 PM HEMOGLOBIN 14.0 03/21/2015 04:12 PM HEMOGLOBIN 13.3 12/21/2013 04:00 PM HEMATOCRIT 40.6 03/21/2015 04:12 PM HEMATOCRIT 41.1 12/21/2013 04:00 PM PLATELETS 266 03/21/2015 04:12 PM PLATELETS 450* 12/21/2013 04:00 PM MCV 92.7 03/21/2015 04:12 PM MCV 93.6 12/21/2013 04:00 PM Lab Results Component Value Date/Time SODIUM 141 01/27/2016 04:36 PM SODIUM 139 12/21/2013 04:00 PM POTASSIUM 3.9 01/27/2016 04:36 PM POTASSIUM 4.2 12/21/2013 04:00 PM CHLORIDE 99 01/27/2016 04:36 PM CHLORIDE 94* 12/21/2013 04:00 PM CO2 26 01/27/2016 04:36 PM CO2 28 12/21/2013 04:00 PM CALCIUM 8.7 01/27/2016 04:36 PM CALCIUM 10.4* 12/21/2013 04:00 PM BUN 14 01/27/2016 04:36 PM BUN 20 12/21/2013 04:00 PM CREATININE 0.71 01/27/2016 04:36 PM CREATININE 0.83 12/21/2013 04:00 PM POC CREATININE 0.70 12/24/2015 10:44 AM POC CREATININE 0.7 12/25/2014 09:29 AM GLUCOSE 138* 01/27/2016 04:36 PM GLUCOSE 160* 12/21/2013 04:00 PM ANION GAP 16 01/27/2016 04:36 PM Lab Results Component Value Date/Time INR 1.1 03/21/2015 04:12 PM INR 1.0 11/27/2013 03:00 PM PROTIME 13.6 03/21/2015 04:12 PM PROTIME 13.5 11/27/2013 03:00 PM No results found for: HCGURPOC, HCGQUALUR, HCGQUAL, HCGQUANT, HCGINTACT Lab Results Component Value Date/Time POC GLUCOSE 142* 02/07/2016 09:29 AM POC GLUCOSE 171* 12/10/2013 08:34 AM EKG: normal EKG, normal sinus rhythm Other Studies/Considerations: None Postop pain management discussed yes Smoking/Tobacco Counseling: None Recommendations: None [facility] report reviewed. No interval changes in patient's history or review of systems.Yes ASA Physical Status: ASA 2 - Patient with mild systemic disease with no functional limitations I have seen and examined this patient and confirm that all data is current and accurate. Yes Choice of Anesthesia/Anesthesia Plan: Proceed and General I have discussed the anesthetic options and the risks/benefits with the patient/family. Questions have been solicited and answered. Yes Jamar Syed MD documented in this encounter Plan of Treatment Not on file documented as of this encounter Visit Diagnoses Not on filedocumented in this encounter Administered Medications Inactive Administered Medications - up to 3 most recent administrations Medication Order MAR Action Action Date Dose Rate Site dexamethasone (DECADRON) injection INTRA-PROCEDURE PRN, Starting on Wed02/07/16 at 1148, Until Wed02/07/16 at 1245, Routine, Anesthesia Intra-op Given 02/07/2016 11:48 AM CDT 10 mg diphenhydrAMINE (BENADRYL) injection INTRA-PROCEDURE PRN, Starting on Wed02/07/16 at 1151, Until Wed02/07/16 at 1245, Routine, Anesthesia Intra-op Given 02/07/2016 11:51 AM CDT 25 mg famotidine PF (PEPCID) 20 mg/2 mL injection INTRA-PROCEDURE PRN, Starting on Wed02/07/16 at 1135, Until Wed02/07/16 at 1245, Routine, Anesthesia Intra-op Given 02/07/2016 11:35 AM CDT 20 mg fentaNYL PF (SUBLIMAZE) 50 mcg/mL injection INTRA-PROCEDURE PRN, Starting on Wed02/07/16 at 1140, Until Wed02/07/16 at 1245, Routine, Anesthesia Intra-op Given 02/07/2016 11:40 AM CDT 100 mcg HYDROmorphone (PF) (DILAUDID) 1 mg/mL injection INTRA-PROCEDURE PRN, Starting on Wed02/07/16 at 1208, Until Wed02/07/16 at 1245, Routine, Anesthesia Intra-op Given 02/07/2016 12:39 PM CDT 0.4 mg Given 02/07/2016 12:32 PM CDT 0.2 mg Given 02/07/2016 12:24 PM CDT 0.2 mg ketorolac (TORADOL) injection INTRA-PROCEDURE PRN, Starting on Wed02/07/16 at 1232, Until Wed02/07/16 at 1245, Routine, Anesthesia Intra-op Given 02/07/2016 12:32 PM CDT 15 mg lidocaine 2 % (XYLOCAINE) injection INTRA-PROCEDURE PRN, Starting on Wed02/07/16 at 1142, Until Wed02/07/16 at 1245, Other (See Comment), Routine, Anesthesia Intra-op Given 02/07/2016 11:42 AM CDT 60 m g midazolam (VERSED) injection INTRA-PROCEDURE PRN, Starting on Wed02/07/16 at 1135, Until Wed02/07/16 at 1245, Routine, Anesthesia Intra-op Given 02/07/2016 11:35 AM CDT 2 mg ondansetron (ZOFRAN) 4 mg/2 mL injection INTRA-PROCEDURE PRN, Starting on Wed02/07/16 at 1208, Until Wed02/07/16 at 1245, Nausea/Emesis, Routine, Anesthesia Intra-op Given 02/07/2016 12:08 PM CDT 4 mg propofol (DIPRIVAN) injection INTRA-PROCEDURE PRN, Starting on Wed02/07/16 at 1142, Until Wed02/07/16 at 1245, Anesthesia Intra-op Given 02/07/2016 11:49 AM CDT 50 mg Given 02/07/2016 11:42 AM CDT 150 mg documented in this encounter Care Teams Frame Stripper And Crusher Relationship Specialty Start Date End Date Jareth Lopez MD [address] [place] [id number] PCP - General Family Practice 04/11/13 documented as of this encounter
--- OUTSIDE RECORDS SUMMARY | 2024-09-27 17:40 | XMS_ITS | Encounter Summary ---
Author Organization [employer] [facility] Address [address] [place] [address] Care Team Providers Care Accounting Officer Name Role Phone Jareth Lopez MD Primary Care Provider [phone] Reason for Referral * Outpatient Services (Routine) - Closed Specialty Diagnoses / Procedures Referred By Armandoac bernie Referred To Contact CT Scan Diagnoses Pancreatic adenocarcinoma Procedures CT ABDOMEN PELVIS W CONTRAST Anid Marley MD [address] [place] [phone] Referral ID Status Reason Start Date Expiration Date V isits Requested Visits Authorized [id number] Closed [facility] CTS 11/26/2015 12/25/2015 1 1 Reason for Visit * Outpatient Services (Routine) - Closed Specialty Diagnoses / Procedures Referred By Vasquez gibbs Referred To Contact CT Scan Diagnoses Pancreatic adenocarcinoma Procedures CT ABDOMEN PELVIS W CONTRAST Andi Marley MD [address] [place] [phone] Referral ID Status Reason Start Date Expiration Date V isits Requested Visits Authorized [id number] Closed [facility] CTS 11/26/2015 12/25/2015 1 1 Encounter Details Date Type Department Care Team (Latest Contact Info) Description 12/24/2015 9:54 AM CDT - 12/24/2015 11:59 PM CDT Hospital Encounter [facility] CT Scan [address] [place] [phone] Andi Marley MD [address] [facility] [address] [place] [address] Discharge Disposition: Home or Self [...] Sign Reading Time Taken Comments Blood Pressure - - Pulse - - Temperature - - Respiratory Rate - - Oxygen Saturation - - Inhaled Oxygen Concentration - - Weight 68.9 kg (152 lb) 12/24/2015 10:29 AM CDT Height - - Body Mass Index 26.93 09/26/2015 10:41 AM 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 multivitamin (DAILY-JASPER) tablet Take 1 Tab by mouth daily. triamterene-hydrochlorothi azide (MAXZIDE 25) 37.5-25 mg tablet Take 1 Tab by mouth daily. L GASSERI/B BIFIDUM/B LONGUM (Fitfu ORAL) Take by mouth. documented as of this encounter Miscellaneous Notes * Treatment Plan - Renea Webster RN - 12/24/2015 10:28 AM CDT Images from the original note were not included. documented in this encounter Plan of Treatment Not on file documented as of this encounter Procedures Procedure Name Priority Date/Time Associated Diagnosis Comments CT ABDOMEN PELVIS W CONTRAST Routine 12/24/2015 11:17 AM CDT Pancreatic adenocarcinoma POC CREATININE Routine 12/24/2015 10:44 AM CDT documented in this encounter Results [...] metastatic disease. Andi Marley MD CT ORDERABLES * POC CREATININE (12/24/2015 10:44 AM CDT) CREATININE POC 0.70 0.50 - 1.00 mg/dL 12/24/2015 10:50 AM CDT [facility] GFR >60 >=60 mL/min/1.7 3 sq meter 12/24/2015 10:50 AM CDT [facility] Comment: eGFR has not been validated for [...] GFR, >60 >=60 mL/min/1.7 3 sq meter 12/24/2015 10:50 AM CDT [facility] Blood, capillary 12/24/2015 10:44 AM CDT 12/24/2015 10:50 AM CDT Andi Marley MD POINT OF CARE TESTIN G [facility] [facility]# [id number] [address] [place] [address] [place] [address] documented in this encounter Visit Diagnoses Diagnosis Pancreatic adenocarcinoma Malignant neoplasm of pancreas, part unspecified documented in this encounter Administered Medications Inactive Administered Medications - up to 3 most recent administrations Medication Order MAR Action Action Date Dose Rate Site iohexol (OMNIPAQUE) 240 mg/mL oral solution 50 mL 50 mL, Oral, PRE-PROCEDURE ONCE, 1 dose, Starting on Wed12/24/15 at 1115, Until Wed12/24/15 at 1005, Routine Given 12/24/2015 10:05 AM CDT 50 mL ioversol (OPTIRAY 320) 320 mg iodine/mL syringe 125 mL 125 mL, IV, INTRA-PROCEDURE ONCE, 1 dose, Starting on 12/24/15 at 1115, Until Wed12/24/15 at 1117 Given 12/24/2015 11:17 AM CDT 125 mL documented in this encounter Care Teams Accounting Officer Relationship Specialty Start Date End Date Jareth Lopez MD [address] [place] [address] PCP - General Family Practice 04/11/13 documented as of this encounter
--- OUTSIDE RECORDS SUMMARY | 2024-09-27 17:40 | XMS_ITS | Encounter Summary ---
Author Organization [facility] Address [address] [place] [address] Care Team Providers Care Log Hauler Name Role Phone Jareth Lopez MD Primary Care Provider [phone] Reason for Referral * Outpatient Services (Routine) - Closed Specialty Diagnoses / Procedures Referred By Contac t Referred To Contact CT Scan Diagnoses History of pancreatic cancer Procedures CT ABDOMEN PELVIS W CONTRAST CT ABDOMEN PELVIS W WO CONTRAST Andi Marley MD [address] [place] [phone] Referral ID Status Reason Start Date Expiration Date V isits Requested Visits Authorized [id number] Closed [facility] CTS 11/24/2017 12/23/2017 1 1 Reason for Visit * Outpatient Services (Routine) - Closed Specialty Diagnoses / Procedures Referred By Contac t Referred To Contact CT Scan Diagnoses History of pancreatic cancer Procedures CT ABDOMEN PELVIS W CONTRAST CT ABDOMEN PELVIS W WO CONTRAST Andi Marley MD [address] [place] [phone] Referral ID Status Reason Start Date Expiration Date V isits Requested Visits Authorized [id number] Closed [facility] CTS 11/24/2017 12/23/2017 1 1 Encounter Details Date Type Department Care Team (Latest Contact Info) Description 12/21/2017 8:19 AM CDT - 12/21/2017 11:59 PM CDT Hospital En[facility] [address] [facility] [address] [place] [address] Andi Marley MD [address] [facility] [address] [place] [address] Discharge Disposition: Home or Self [...] by mouth daily. L GASSERI/B BIFIDUM/B LONGUM ([employer] [facility] ORAL) Take by mouth. docusate sodium (COLACE) 100 mg capsule Take 100 mg by mouth 2 times daily as needed for Constipation. 04/16/2021 documented as of this encounter Progress Notes * Minnie Roman, RN - 12/21/2017 8:59 AM CDT For any pts 50 yrs of age or older, or any one with any history of renal disease; will need a creatine/GFR results from the past [address] Instructed pt to drink water for next 48 hrs to help flush contrast out of system. States understanding.IMAGING SERVICES- CT, MRI, and NUCLEAR MEDICINE MEDICATION and FLUSH PROTOCOL [facility] ORDERS ARE ENTERED ???PER PROTOCOL?? Enter the protocol in the patient???s electronic health record using Velti: .imagingmedflushprotocol Communication Orders: o For ordered imaging procedures requiring intravenous access : ??? Initiate a peripheral IV, if not already in place, and discontinue IV prior to discharge (if outpatient). ??? Enter order if needed: Insert Peripheral IV Medication Orders: o Local Anesthetic for use to initiate IV ADULT ??? Lidocaine 4% (L.M.X.4) applied topically ONE TIME prior to IV catheter insertion PRN (L.M.X.4 %should be applied 15 minutes prior to procedure) PEDIATRIC ??? Lidocaine 4% (L.M.X.4) applied topically ONE TIME prior to IV catheter insertion PRN (apply 15 minutes prior to procedure) ??? Sucrose 24% (Tootsweet; Sweet-Ease) oral solution, 0.2mL given orally prior to IV catheter insertion (administer 1 - 2 minutes prior to procedure) o Sodium chloride 0.9% (normal saline) flush 10 mLs PRN for saline lock or medication administration. o For respiratory distress, initiate oxygen and/or increase O2 to maintain saturation greater than 90% Procedure Specific Medications: o Cystogram (CT Pelvis): Iopamidol (Isovue 300) 61%, diluted with 270mL of sterile NS. Mix solution of Isovue and NS in a sterile bowl. Clamp lorenzo catheter prior to instilling solution via catheter. ??? Instill up to 300mL of Isovue and NS solution into bladder via catheter, one time. o Hepatobiliary scan with ejection fraction : For immediate use - Sincalide (Kinevac) 0.02 mcg/kg IV, one time, diluted with NS to a total infused volume of 30 mLs. Infuse via an infusion device over 30 minutes. o Thyroid cancer Thyrogen injections : Thyrotropin Anson (Thyrogen) 0.9 mg deep IM every 24 hours for two doses. o Renal scan with Lasix : Furosemide (Lasix) 1 mg/kg one time IV push over 2 minutes. Maximum dose of 40mg. o Renal scan with Enalapril : Enalapril (Vasotec) 0.04 mg/kg (maxium of 2.5mg) IV one time IV. Dilute to 5mL total volume with normal saline and infuse via infusion device over 5 minutes. o Lymphoscintigraphy : ??? Tc99m(Technetcium 99) 0.2mL filtered sulfur colloid with 0.2mL lidocaine 1% and 0.6mL sodium chloride. Give 500uCi (0.5mL) subcutaneously, in divided doses, ONE TIME at specified site(s). ??? Lidocaine 4% (L.M.X.4) applied topically ONE TIME PRN to the site(s) of injection (L.M.X.4 % should be applied 15 minutes prior to procedure). CT ORAL CONTRAST PROTOCOLS FOR ADULTS ??? Use Iohexol (Omnipaque) 240 mg/mL for CT scan unless patient has a documented allergy to contrast dye. ??? If allergy present, use Barium Sulfate (EZ Paque or Vanilla SILQ) for procedure. ??? If at any time the Bodybuilder has a question about which option to administer, seek clarification from a Radiologist. o Iohexol (Omnipaque) 240 mg/mL: 50ml added to 960mL of clear liquid of patients choice. Preferred route is oral. May use nasoenteric tube if needed. ??? Administer 900mL of the diluted Omnipaque 240, orally, one time only. o Barium Sulfate (EZ Paque /Vanilla Silq) 96% oral suspension: Preferred route is oral. May use nasoenteric tube if needed. ??? Administer 900mL of barium sulfate, orally, one time only. CT ORAL CONTRAST PROTOCOLS FOR PEDIATRICS Pediatrics = up to age 18 o Pediatric Radiologist will approve of one of the following products selected for procedure. ??? Barium Sulfate (EZ Paque /Vanilla Silq) 96% oral suspension: preferred route is oral. May use nasoenteric tube if needed. to 3 months Administer up to 90mL of Barium Sulfate, orally, one time only 4 months to 1 year old Administer up to 240mL of Barium sulfate , Orally, One Time Only 1 year old to 5 years old Administer up to 360mL of Barium sulfate , Orally, One Time Only 5 years old to 10 years old Administer up to 480mL of Barium sulfate , Orally, One Time Only Over 10 years old Administer up to 600mL of Barium sulfate , Orally, One Time Only ??? Iohexol (Omnipaque) 240 mg/mL oral solution ??? Dilute 25mL of iohexol with 480mL of clear liquid of patient???s choice. Administer the dilutedsolution per age as follows: Preferred route is orally. May use nasoenteric tube if needed. ??? Send any remaining diluted Iohexol solution with the pateint???s nurse to CT [place] Administer 45mL of diluted Iohexol oral solution, orally every 30 minutes x 2 doses. 1 month to 1 year old Administer 120mL of diluted Iohexol oral solution, orally every 30 min x 2 doses. 1 year old to 5 years old Administer 180mL of Iohexol orally every 30 min x 2 doses. 5 years old to 10 years old Administer 240mL of Iohexol orally every 30 min x 2 doses. Over 10 years old Administer 300mL of Iohexol orally every 30 min x [address] IV CONTRAST PROTOCOLS ADULTS: (If patient is less than 55kg and confirm dose with radiologist) o Iopadmidol (Isovue-300): Administer 2.2mL/kg (to MAX of 125mL) of Iopamidol 61%, intravenously, one time only PEDIATRICS: Use weight based dosing if patient is less than 55kg and confirm dose with radiologist. to 15 years old Administer 2.2mL/kg (to MAX of 80 mL) of Iopamidol (Isovue-300) 61%, intravenously, one time only 15 years old and older Administer 2.2mL/kg (to MAX of 125mL) of Iopamidol (Isovue-300) 61%, intravenously, one time only MRI IV CONTRAST PROTOCOLS ADULTS: o Multihance is used for most MRIs. For Liver studies, contact Radiologist to determine use of one of the following: Gadobenate Dimeglumine (Multihance) (0.1mmol/0.2mL), Administer 0.1mmol/kg = 0.2mL/kg up to MAX of 30mL, intravenously, one time only OR Gadoxetate (Eovist) 2.5 mmol/10mL, Administer 0.025mmol/kg = 0.1mL/kg MAX of 15mL, intravenously, one time only PEDIATRICS: o Radiologist to determine need for contrast Term neonates up to 2 years: Gadobutrol (Gadavist) 1mmol/mL injection, Administer 0.1mmol/kg = 0.1mL/kg up to MAX of 14mmol = 14mL, intravenously, one time only 2 years and older Gadobenate Dimeglumine (Multihance) (0.1mmol/0.2mL), Administer 0.1mmol/kg = 0.2mL/kg up to MAX of 20mL, intravenously, one time only \ Initiating Department(s): 10/2013 Nuclear Medicine and Pharmacy Reviewed: 07/2014 ,02/2016, 02/2017; 05/2017 Revised: 07/2014, 11/2016, 02/2017; 05/2017 Approved by: Medical Executive Committee, Imaging Services, and Pharmacy & Therapeutics Committee Date: 05/2017 documented in this encounter Plan of Treatment Not on file documented as of this encounter Procedures Procedure Name Priority Date/Time Associated Diagnosis Comments CT ABDOMEN PELVIS W CONTRAST Routine 12/21/2017 9:44 AM CDT History of pancreatic cancer POC CREATININE Routine 12/21/2017 9:31 AM CDT documented in this encounter Results * CT ABDOMEN PELVIS W CONTRAST (12/21/2017 9:44 AM CDT) Anatomical Region Laterality Modality Abdomen Computed Tomogra phy 12/21/2017 9:48 AM CDT Impressions 12/21/2017 10:03 AM CDT IMPRESSION: ?? Stable CT of the abdomen and pelvis without evidence of metastatic disease. DICTATION LOCATION: Location [address] [place] [address] 12/21/2017 10:[address] OF THE [...] disease. DICTATION LOCATION: Location 1 - [facility] Andi Marley MD CT ORDERABLES * POC CREATININE (12/21/2017 9:31 AM CDT) CREATININE POC 0.80 0.50 - 1.00 mg/dL 12/21/2017 9:35 AM CDT [facility] GFR >60 >=60 mL/min/1.7 3 sq meter 12/21/2017 9:35 AM CDT [facility] Comment: eGFR has not been validated [...] GFR, >60 >=60 mL/min/1.7 3 sq meter 12/21/2017 9:[address] [facility] [employer] [facility] Blood, capillary 12/21/2017 9:31 AM CDT 12/21/2017 9:35 AM CDT Andi Marley MD POINT OF CARE TESTFREDI [facility] Organization Address City/State/ZIP Co de Phone Number [facility] [employer] [facility]# [id number] [address] [facility] [address] documented in this encounter Visit Diagnoses Diagnosis History of pancreatic cancer Personal history of malignant neoplasm of other site in gastrointestinal tract documented in this encounter Administered Medications Inactive Administered Medications - up to 3 most recent administrations Medication Order MAR Action Action Date Dose Rate Site iohexol (OMNIPAQUE) 240 mg/mL oral solution 50 mL 50 mL, Oral, PRE-PROCEDURE ONCE, 1 dose, Starting on Wed12/21/17 at 0933, Until Wed12/21/17 at 0825, Routine Given 12/21/2017 8:25 AM CDT 50 mL iopamidol (ISOVUE-300) 61 % injection 120 mL 120 mL, IV, INTRA-PROCEDURE ONCE, 1 dose, Starting on Wed12/21/17 at 0933, Until Wed12/21/17 at 0944, Routine Contrast Given 12/21/2017 9:44 AM CDT 120 mL sodium chloride flush injection 10 mL 10 mL, IV, SEE ADMIN INSTRUCTIONS, 1 dose, Starting on Wed12/21/17 at 0858, Until Wed12/21/17 at 0929, Routine Given 12/21/2017 9:29 AM CDT 10 mL documented in this encounter Care Teams Log Hauler Relationship Specialty Start Date End Date Jareth Lopez MD [address] [place] [address] PCP - General Family Practice 04/11/13 documented as of this encounter
--- OUTSIDE RECORDS SUMMARY | 2024-09-27 17:40 | XMS_ITS | Encounter Summary ---
Author Organization [facility] Address [address] [place] [address] Care Team Providers Care Commercial Loan Analyst Name Role Phone Jareth Lopez MD Primary Care Provider Reason for Visit * Auth/Cert Specialty Diagnoses / Procedures Referred By Contac t Referred To Contact Gastroenterology Procedures COLONOSCOPY ESOPHAGOGASTRODUODENOSCOP Y [facility] [address] [place] [address] Referral ID Status Reason Start Date Expiration Date Visits Re quested Visits Authorized [id number] 1 1 Encounter Details Date Type Department Care Team (Late st Contact Info) Description 04/11/2018 7:24 AM CDT Anesthesia Event [facility] GI Lab S [facility] [address] [place] [address] Dorian Foster MD [address] [place] [address] Anesthesia Record Procedure Summary Procedure Name Responsible Anesthesiologist Anesthesia Start Time Anesthesia Stop Time COLONOSCOPY (Anus) Dorian Foster MD 04/11/18 0724 0811 Events Date Time Event Comment 04/11/2018 0641 0724 AN Equip Check Anesthesia eq uipment and materials checked in accordance with local policy. 0724 An Start 0724 An Start Data 0724 Pre-Induction Immediate pre- induction anesthetic assessment performed. Vital signs as noted on graphic. 0729 An Induction 0729 Anesthesia Ready 0805 an stop data 0811 An Stop Meds Name Total lidocaine PF (XYLOCAINE MPF) 2% cardiac injection 40 mg propofol (DIPRIVAN) 10??mg/mL injection 460 mg benzocaine (HURRICAINE ONE) 20% PF spray 1 Ogden lactated Ringers solution 900 mL * Agents Name O2 N2O Inspired N2O O2 * Blood No blood administrations on file. Lines, Drains, and Airways Type Details Placement Removal Peripheral IV Pre-Hospital Start: No; Orientation: Right; Location: AC; Device: Angiocath; Gauge: 22 gauge; Needle Length: 1 in length; Insertion Attempts: 1; Patient Tolerance: tolerated well; Power Injectable Compatible: Yes 06/25/15923 by Beverly Montano RN 04/11/18823 by Suzan Ortiz RN Peripheral IV Orientation: Right; Location: AC; Device: Angiocath; Gauge: 20 gauge; Insertion Attempts: 2 (started by Christi STALLWORTH); Patient Tolerance: tolerated well, appears comfortable 04/11/18651 by Fabiola Sapp RN 04/11/18819 by Suzan Ortiz RN Supraglottic Airway Type: nasal cannula; Confirmation: end tidal CO2, satisfactory chest rise 04/11/18723 by Bigg Back 04/11/18819 by Suzan Otriz RN documented in this encounter Social History [...] OR Notes * Anesthesia Postprocedure Evaluation - Bigg Back - 04/11/2018 8:12 AM CDT Post Anesthesia Evaluation Vitals: BP 108/63 (BP Location: Right arm, Patient Position (BP): Lying left side) Pulse 72 Temp 36 ??C (Temporal) Resp 16 Ht 5' 3 (1.6 m) Wt 67 kg (147 lb 12.8 oz) SpO2 100% BMI 26.18kg/m?? Pain Rating: Nausea/Vomiting: no nausea and no vomiting Post-Op hydration: well hydrated Respiratory function: no respiratory symptoms Airway patency: normal Cardiovascular function: Normal - Regular rate and rhythm Mental status, LOC: 0=alert; keenly responsive Patient participated in evaluation: yes Unanticipated Events: no Bigg Back * Anesthesia Handoff - Bigg Back - 04/11/2018 8:10 AM CDT Post-Anesthetic transfer of care report [...] and acknowledgement of understanding. Vital Signs: BP: 108/63 (04/11/2018 8:09 AM) Pulse: 72 (04/11/2018 8:09 AM) Temp: 36 ??C (04/11/2018 8:09 AM) Resp: 16 (04/11/2018 8:09 AM) SpO2: 100 % (04/11/2018 8:09 AM) 8:10 AM Bigg Back * Anesthesia Preprocedure Evaluation - Dorian Foster MD - 04/11/2018 6:40 AM CDT Relevant Problems No active problems are marked relevant to this note. Anesthesia Evaluation Patient summary reviewed Airway TM distance: >3 FB Neck ROM: full Dental - normal exam Pulmonary - normal exam breath sounds clear to auscultation (+) asthma, Cardiovascular - normal exam (+) hypertension, Rhythm: regular Rate: normal ROS comment: No cp angina, no known ASCAD, good et Neuro/Psych - negative ROS GI/Hepatic/Renal (+) GERD, Endo/Other (+) diabetes mellitus type 2, Abdominal - normal exam Anesthesia History Anesthesia Plan ASA 2 MAC Intravenous induction Mask airway maintenance NPO status > 8 hours Anesthetic plan and risks discussed with Patient. Post-op Pain Control Plan to use IV [...] benzocaine PF (HURRICAINE ONE) 20 % spray INTRA-PROCEDURE PRN, Starting on Wed04/11/18 at 0729, Until Wed04/11/18 at 0812, Routine, Anesthesia Intra-op Given 04/11/2018 7:29 AM CDT 1 Ogden lactated Ringers solution IV, at 125 mL/hr, PRE-PROCEDURE CONTINUOUS, Starting on Wed04/11/18 at 0645, Until Wed04/11/18 at 1104, Routine, Pre-Procedure Continue from Pre-Op 04/11/2018 7:24 AM CDT New Bag 04/11/2018 6:54 AM CDT 125 mL/hr lidocaine (XYLOCAINE MPF) 20 mg/mL (2 %) cardiac injection INTRA-PROCEDURE PRN, Starting on Wed04/11/18 at 0729, Until Wed04/11/18 at 0812, Other (See Comment), Routine, Anesthesia Intra-op Given 04/11/2018 7:29 AM CDT 40 mg propofol (DIPRIVAN) injection INTRA-PROCEDURE PRN, Starting on Wed04/11/18 at 0800, Until Wed04/11/18 at 0812, Anesthesia Intra-op Given 04/11/2018 8:00 AM CDT 460 mg documented in this encounter Care Teams Commercial Loan Analyst Relationship Specialty Start Date End Date Jareth Lopez MD [address] [place] [address] PCP - General Family Practice 04/11/13 documented as of this encounter
--- OUTSIDE RECORDS SUMMARY | 2024-09-27 17:40 | XMS_ITS | Encounter Summary ---
Author Organization [facility] Address [address] [place] [address] Care Team Providers Care Pr Internship Name Role Phone Jareth Lopez MD Primary Care Provider [phone] Reason for Visit * Reason Comments Follow Up pancreatic ca 1 year check, hx whipple Encounter Details Date Type Department Care Team (Latest Contact Info) Description 12/16/2018 10:00 AM CDT Office Visit [facility] Surgical Spec [place] [address] [facility] [address] [place] [address] Andi Marley MD [address] [place] [address] Pancreatic adenocarcinoma (Primary Dx); Uncomplicated alcohol abuse Social History Tobacco Use Types Packs/Day Years [...] - Inhaled Oxygen Concentration - - Weight 70.8 kg (156 lb) 12/16/2018 10:05 AM CDT Height 160 cm (5' 3 ) 12/16/2018 10:05 AM CDT Body Mass Index 27.63 12/16/2018 10:05 AM CDT documented in this encounter Progress Notes * Andi Marley MD - 12/16/2018 5:35 PM CDT Subjective: 68-year-old female who follows up 5 years after her Whipple operation for pancreatic adenocarcinoma. She has occasional incisional pain. She has no further weight loss. She is about to start on medications for diabetes type 2. She has no nausea or vomiting. Her bowel movements are normal in color. There are no hospital problems to display for this patient. Past Medical History: Diagnosis Date ??? Arthritis ??? Asthma as a child ??? At risk for obstructive sleep apnea 01/27/2016 stop bang 2 ??? Cancer pancreas ??? Diabetes mellitus type 2 ??? Diverticulitis ??? Edema, lower extremity pt takes triameterene/hctz ??? Gastrointestinal disorder diverticulitis ??? GERD (gastroesophageal reflux disease) patient denies ??? Heart disease, unspecified MVP ??? Temporomandibular joint disorder wears chief guard Past Surgical History: Procedure Laterality Date [...] REPAIR performed by Andi Marley MD at [facility] OR [facility] ??? HX LUMBAR DISKECTOMY Left 03/29/2015 SPINAL MICRODISCECTOMY MINIMALLY INVASIVE - LEFT L5-S1 M.I. DISCECTOMY performed by Truman Streeter MD at [facility] OR [facility] ??? HX SINUS SURGERY ??? HX TONSILLECTOMY age 6 ??? WI COLONOSCOPY FLX DX W/COLLJ SPEC WHEN PFRMD N/A 04/11/2018 COLONOSCOPY performed by Edmond Gant MD at [facility] GI LAB ??? WI ESOPHAGOGASTRODUODENOSCOPY TRANSORAL DIAGNOSTIC N/A 04/11/2018 ESOPHAGOGASTRODUODENOSCOPY performed by Edmond Gant MD at [facility] GI LAB ??? WI PART REMV PANC,PROX+REMV DUOD 12/04/2013 WHIPPLE performed by Andi Marley MD at [facility] OR [facility] (Not in a hospital admission) Allergies Allergen [...] Maternal Aunt ??? Colon Cancer Neg Hx Review of Symptoms Head-no headaches or recent [...] no major depressive episodes requiring hospitalization Objective: Ht 5' 3 (1.6 m) Wt 70.8 kg (156 lb) BMI 27.63 kg/m?? General: Alert, cooperative, no distress, appears stated [...] non-tender. Bowel sounds normal. No masses, No organomegaly. Well-healed incision with no hernia Extremities: Extremities normal, atraumatic, no cyanosis or edema. Pulses: 2+ and symmetric all extremities. Skin: Skin color, texture, turgor normal. No rashes or lesions. Lymph nodes: Cervical, supraclavicular, and axillary nodes normal. Neurologic: CNII-XII intact. Normal strength, sensation and reflexes throughout. DATA REVIEW CT scan of the abdomen pelvis was reviewed by myself shows no suspicious masses for pancreatic cancer metastasis Assessment: 68-year-old female who has no signs of pancreatic cancer status post Whipple 5 years ago Plan: I do not think that further surveillance is necessary for her stage I pancreatic cancer She will see me back as needed I have no dietary restrictions for although I told her that weight loss is preferred documented in this encounter Plan of Treatment Not on file documented as of this encounter Visit Diagnoses Diagnosis Pancreatic adenocarcinoma- Primary Malignant neoplasm of pancreas, part unspecified Uncomplicated alcohol abuse Alcohol abuse, unspecified documented in this encounter Care Teams Pr Internship Relationship Specialty Start Date End Date Jareth Lopez MD [address] [place] [id number] PCP - General Family Practice 04/11/13 documented as of this encounter
--- OUTSIDE RECORDS SUMMARY | 2024-09-27 17:40 | XMS_ITS | Encounter Summary ---
Author Organization [facility] Address [address] [place] [address] Care Team Providers Care Registered Radiologic Technologist Name Role Phone Jareth Lopez MD Primary Care Provider [phone] Reason for Visit * Auth/Cert Specialty Diagnoses / Procedures Referred By Contac t Referred To Contact General Surgery Diagnoses Ventral incisional hernia Procedures HERNIA VENTRAL REPAIR [facility] [address] [place] [address] Referral ID Status Reason Start Date Expiration Date Visits Re quested Visits Authorized [id number] 1 1 Encounter Details Date Type Department Care Team (Latest Contact Info) Description 02/07/2016 6:50 AM CDT - 02/07/2016 4:35 PM CDT Hospital Encounter [facility] [address] [facility] [address] [place] [address] [place] [address] Andi Marley MD [address] [facility] [place] [address] Ventral incisional hernia Discharge Disposition: Home or Self Care Social [...] Sign Reading Time Taken Comments Blood Pressure 136/72 02/07/2016 3:41 PM CDT Pulse 71 02/07/2016 3:41 PM CDT Temperature 36.7 ??C (98.1 ??F) 02/07/2016 3:41 PM CD T Respiratory Rate 18 02/07/2016 3:02 PM CDT Oxygen Saturation 95% 02/07/2016 3:41 PM CDT Inhaled Oxygen Concentration - - [...] not uncommon. The patient may take any ceml-dvu-vvzpitx medication(s) that have worked previously to correct [...] to call the office for postoperative appointment ([phone]). The patient will need to be seen [...] or come to the Emergency Room at [facility] ([phone]) or the nearest Emergency Room. In an [...] by mouth daily. L GASSERI/B BIFIDUM/B LONGUM ([facility] COLON [facility] ORAL) Take by mouth. cyclobenzaprine (FLEXERIL) 10 [...] WHIPPLE?? performed by Andi Marley MD at [facility]? Hx lumbar diskectomy?? Left?? 03/29/2015? SPINAL MICRODISCECTOMY MINIMALLY INVASIVE - LEFT L5-S1 M.I. DISCECTOMY performed by Truman Streeter MD at [facility]? Prescriptions Prior to Admission (Not in [...] Marley MD - 02/07/2016 11:04 PM CDT [place], [place] [address] Operative Report CSN: [id number] DATE OF SERVICE: 02/07/2016 SURGEON Andi Marley [...] recovery room in stable condition. RLN:MEDQ DID: [id number] Dictated by: Andi Marley M.D. * Amirah-OP - Мария Alatorre RN - 02/07/2016 2:01 PM CDT Patient instructed on use of incentive spirometer. * Brief Op Note - Andi Marley MD - 02/07/2016 12:42 PM CDT Brief Postoperative Note Elena Fernández [id number] Pre-operative Diagnosis: Ventral incisional hernia [K43.2] Post-operative [...] Implant Name Type Inv. Item Serial No. V Belt Inspector Lot No. LRB No. Used Action MESH PROCEED MED PVPM - [id number] Mesh MESH PROCEED MED PVPM pvpm [employer] [id number] N/A1 Implanted Estimated Blood Loss: [address] Andi Marley MD * Amirah-OP - Lorna Yepez RN - 02/07/2016 9:31 AM CDT glucoscan 142 documented in this encounter Miscellaneous Notes * Care Plan - Renea Cary RN - 02/07/2016 3:57 PM CDT Potential for pain related to surgical/procedural intervention Interventions: Assess level of pain/comfort utilizing verbal/nonverbal pain scales; assess culturalor yazidi indicators attached to pain; administer pain medications [...] responsible green party understanding verified. * Care Plan - Мария Alatorre RN - 02/07/2016 12:52 PM CDT Potential for pain related to surgical/procedural intervention Interventions: Assess level of pain/comfort utilizing verbal/nonverbal pain scales; assess culturalor yazidi indicators attached to pain; administer pain medications [...] Met: Weaned from face mask. * Care Plan - Lorna Yepez RN - 02/07/2016 8:46 [...] - 99 mg/dL 02/07/2016 1:10 PM CDT [facility] [employer] [facility] Whole blood specimen (specimen) 02/07/2016 1:07 PM CDT 02/07/2016 1:10 PM CDT Andi Marley MD POINT OF CARE TESTIN G [facility] [employer] [facility] CLIA# [id number] [address] [place] [address] * PATHOLOGY (02/07/2016 12:20 PM CDT) CASE REPORT Surgical Pathology Report ? Case: [id number] ? Authorizing Provider: ??Andi Marley MD ? Collected: ? 02/07/2016 12:20 PM ? Ordering Location: ? [facility] ?Received: ?02/07/2016 12:48 PM ? Operating Room ? Pathologist: ? Isai Olson MD ? Specimen: ?Skin, abdominal scar ? 02/10/2016 11:35 AM CDT [facility] FINAL DIAGNOSIS SKIN, ABDOMEN, EXCISION: - DERMAL SCAR AND KELOID. 02/10/2016 11:35 AM T [facility] IMEN DESCRIPTION Abdominal scar. 02/10/2016 11:35 AM T [facility] OPERATIVE PROCEDURE Hernia ventral incisional repair. 02/10/2016 11:35 AM T [facility] CLINICAL INFORMATION Ventral incisional hernia, K43.2. 02/10/2016 11:35 AM CDT [facility] GROSS DESCRIPTION Received in a single container labeled Elena Fernández, abdominal scar is a 20.5 x 1.7 x 1.9-cm unoriented excision of mackay skin. The skin surface is remarkable for a 20.5-cm long healed linear scar. No additional lesions are identified. Machine Turner sections are submitted in cassette A1. KLA/jmp 02/10/2016 11:35 AM T [facility] MICROSCOPIC DESCRIPTION The slide is labeled [id number] and Elena Fernández. The abdominal excision demonstrates dermal scar with lobulated collections of increased number of fibroblasts, blood vessels, and entrapped thick, eosinophilic, keloidal collagen bundles. 02/10/2016 11:35 AM T [facility] COMMENT Special stain and/or immunohistochemical results are interpreted with controls that demonstrate appropriate staining reactions. Note on use of immunocytochemistry reagents: This test was developed and its performance characteristic determined by [facility], Department of Laboratory Medicine. It has [...] WF, WB and WH are performed by [address], [address]. All other case types are performed by [address] [facility], [address]. 02/10/2016 11:35 AM T [facility] Tissue TISSUE SPECIMEN FROM SKIN / Unknown 02/07/2016 12:20 PM CDT 02/07/2016 12:48 PM CDT Andi Marley MD PATHOLOGY/CYTOLOGY Corinne JIMENEZ [facility] CLIA# [id number] [address] [place] [address] * (ABNORMAL) POC GLUCOSE (02/07/2016 9:29 AM CDT) GLUCOSE POC 142(H) 79 - 99 mg/dL 02/07/2016 9:40 AM CDT [facility] Whole blood specimen (specimen) 02/07/2016 9:29 AM CDT 02/07/2016 9:40 AM CDT Andi Marley MD POINT OF CARE TESTIN G [facility] [employer] [facility]# [id number] [address] [place] [address] documented in this encounter Visit Diagnoses Diagnosis Incisional hernia, without obstruction or gangrene- Primary Incisional hernia without mention of obstruction or gangrene Incisional hernia Incisional hernia without mention of obstruction or gangrene documented in this encounter Administered Medications Inactive Administered Medications - up to 3 most recent administrations Medication Order MAR Action Action Date Dose Rate Site lactated ringers solution IV, at 100 [...] Given 02/07/2016 3:47 PM CDT 1 Tablet vancomycin in sodium chloride 0.9% (VANCOCIN) 1250 [...] 1037 (New Bag - Prov ider: Lorna Yepez, [place])1207 (Due: Stopped - Provider: Lorna Yepez RN) Continuous Medication Order 02/05/2016 02/06/2016 02/07/2016 lactated ringers solution (CANCELED) IV, at 100 mL/hr, PRE-PROCEDURE CONTINUOUS, Starting on Wed02/07/16 at 0930, Until Wed02/07/16 at 1839, Routine 0926 (New Bag - Prov ider: Lorna Yepez RN)1235 (Fluid Volume - Provider: Michaela Ryan CRNA)1621 (Stopped - Provider: Renea Cary, [place]) PRN Medication Order 02/05/2016 02/06/2016 02/07/2016 bupivacaine-EPINEPHrine [...] II 1547 (Given - Provid er: Renea Cary RN) sodium chloride 0.9% infusion (CANCELED) CONTINUOUS PRN, [...] Pre-op documented in this encounter Care Teams Registered Radiologic Technologist Relationship Specialty Start Date End Date Jareth Lopez MD [address] [place] [address] PCP - General Family Practice 04/11/13 documented as of this encounter
--- OUTSIDE RECORDS SUMMARY | 2024-09-27 17:40 | XMS_ITS | Encounter Summary ---
Author Organization [facility] Address [address] [place] [address] Care Team Providers Care Dinkey Driver Name Role Phone Jareth Lopez MD Primary Care Provider [phone] Reason for Referral * Outpatient Services (Routine) - Closed Specialty Diagnoses / Procedures Referred By Contac t Referred To Contact CT Scan Diagnoses Pancreatic adenocarcinoma Procedures CT CHEST ABDOMEN PELVIS W CONT Andi Marley MD [address] [place] [address] Referral ID Status Reason Start Date Expiration Date V isits Requested Visits Authorized [id number] Closed [facility] CTS 12/01/2016 12/30/2016 1 1 Reason for Visit * Reason Comments Post-op Visit Encounter Details Date Type Department Care Team (Latest Contact Info) Description 03/17/2016 2:15 PM CDT Office Visit [facility] Surgical Spec [place] [address] [place] [address] Andi Marley MD [address] [place] [address] Pancreatic adenocarcinoma (Primary Dx); Incisional [...] Sign Reading Time Taken Comments Blood Pressure 153/84 03/17/2016 2:10 PM CDT rig ht wrist Pulse 97 03/17/2016 2:10 PM CDT Temperature - - Respiratory Rate 20 03/17/2016 2:10 PM CDT Oxygen Saturation - - Inhaled Oxygen Concentration - - Weight 75.3 kg (166 lb) 03/17/2016 2:10 PM CDT Height 160 cm (5' 3 ) 03/17/2016 2:10 PM CDT Body Mass Index 29.41 03/17/2016 2:10 PM CDT documented in this encounter Progress Notes * Andi Marley MD - 03/17/2016 2:28 PM CDT Patient returns after her ventral incisional hernia repair and abdominal scar revision. She has no trouble with her incision is extremely happy with the way it looks. She has minimal to no pain. She is wearing her binder reluctantly. She has no trouble bending over and lifting objects Exam-well healed abdominal incision, abdomen is completely soft nondistended nontender Plan-continue light activities for another 2 weeks. Return to see me in one year for followup of her pancreatic adenocarcinoma documented in this encounter Plan of Treatment Not on file documented as of this encounter Results * CT CHEST ABDOMEN [...] metastatic disease. DICTATION LOCATION: Location 1 - [facility] 12/16/2016 2:[address] CHEST, ABDOMEN [...] metastatic disease. DICTATION LOCATION: Location 1 - [facility] Andi Marley MD CT ORDERABLES documented in this encounter Visit Diagnoses Diagnosis Pancreatic adenocarcinoma- Primary Malignant neoplasm of pancreas, part unspecified Incisional hernia, without obstruction or gangrene Incisional hernia without mention of obstruction or gangrene Pancreatic adenocarcinoma Malignant neoplasm of pancreas, part unspecified documented in this encounter Care Teams Dinkey Driver Relationship Specialty Start Date End Date Jareth Lopez MD [address] [place] [address] PCP - General Family Practice 04/11/13 documented as of this encounter
--- OUTSIDE RECORDS SUMMARY | 2024-09-27 17:40 | XMS_ITS | Encounter Summary ---
Author Organization [facility] Address [address] [place] [address] Care Team Providers Care Side Puller Name Role Phone Jareth Lopez MD Primary Care Provider [phone] Reason for Visit * Auth/Cert Specialty Diagnoses / Procedures Referred By Vasquez gibbs Referred To Contact Perioperative Procedures ESOPHAGOGASTRODUODENOSCOPY COLONOSCOPY [facility] [address] [place] [address] Referral ID Status Reason Start Date Expiration Date Visits Re quested Visits Authorized [id number] 1 1 Encounter Details Date Type Department Care Team (Latest Contact Info) Description 04/24/2021 10:00 AM CDT - 04/24/2021 1:14 PM CDT Hospital Encounter [facility] [address] [place] [address] Edmond Gant MD [address] [address] Discharge Disposition: Home or Self Care Social [...] Sign Reading Time Taken Comments Blood Pressure 117/59 04/24/2021 12:30 PM CDT Pulse 74 04/24/2021 12:30 PM CDT Temperature 36.1 ??C (97 ??F) 04/24/2021 12:17 PM CDT Respiratory Rate 18 04/24/2021 12:30 PM CDT Oxygen Saturation 100% 04/24/2021 12:30 PM CDT Inhaled Oxygen Concentration - - Weight 65.6 kg (144 lb 9.6 oz) 04/24/2021 10:39 AM CDT Height 160 cm (5' 3 ) 04/24/2021 10:39 AM CDT Body Mass Index 25.61 04/24/2021 10:39 AM CDT documented in this encounter Discharge Instructions * Discharge Instructions* Dorothea Romero RN - 04/24/2021 12:22 PM CDT If [...] by mouth daily. L GASSERI/B BIFIDUM/B LONGUM (UYA100 ORAL) Take by mouth. documented as of [...] cause CP/SOB ??? Temporomandibular joint disorder wears plumber helper Past Surgical History: Procedure Laterality Date ??? [...] REPAIR performed by Andi Marley MD at [facility] ??? HX LUMBAR DISKECTOMY Left 03/29/2015 SPINAL MICRODISCECTOMY MINIMALLY INVASIVE - LEFT L5-S1 M.I. DISCECTOMY performed by Truman Streeter MD at [facility] ??? HX SINUS SURGERY ??? HX TONSILLECTOMY age 6 ??? [place] COLONOSCOPY FLX DX W/COLLJ SPEC WHEN PFRMD N/A 04/11/2018 COLONOSCOPY performed by Edmond Gant MD at [facility] ??? NH ESOPHAGOGASTRODUODENOSCOPY TRANSORAL DIAGNOSTIC N/A 04/11/2018 ESOPHAGOGASTRODUODENOSCOPY performed by Edmond Gant MD at [facility] ??? NH PART REMV PANC,PROX+REMV DUOD 12/04/2013 WHIPPLE performed by Andi Marley MD at [facility] OR MAIN Medications Prior to Admission Medication [...] Release(E.C.) Take 20 mg by mouth daily. 1at Unknown time ??? multivitamin (DAILY-JASPER) tablet Take 1 Tab by mouth daily. Past Week at Unknown time ??? triamterene-hydrochlorothiazide (MAXZIDE 25) 37.5-25 mg tablet Take 1 Tab by mouth daily. 04/23/2021 at Unknown time ??? L GASSERI/B BIFIDUM/B LONGUM (UYA100 ORAL) Take by mouth. Allergies Allergen Reactions [...] 04/24/2021 12:19 PM CDTAssociated Order(s): COLONOSCOPY REPORT [facility] Endoscopy Patient Name: Elena Fernández Procedure [...] electronically. Number of Addenda: 0 [address] [facility]; [place] [address] * Elena John RN - 04/16/2021 12:02 PM CDT Images from the original note were not included. [facility] GI Nurse Assessment Patient: Elena Fernández : 1950 Endoscopist: Surgeon(s): Edmond Gant MD Upcoming Procedure: Procedure to be Performed: Procedure(s): ESOPHAGOGASTRODUODENOSCOPY COLONOSCOPY Procedure Date/Time: 04/24/2021 at 1100 Diagnosis/Indication for procedure: Z86.010-hx colonic polyps, K31.7 Gastric polyps Location: [facility] Referring Physician: Jareth Lopez [...] of Addenda: [address]; [place] [address] Last Pathology: Collected: 04/11/2018 ??7:56 AM Received: 04/11/2018 ??8:56 AM Colon Polyp(s). ??Adenomatous vs hyperplastic vs other. PATHOLOGY: [id number] Order: [id number] Collected: 04/11/2018 07:39 Status: Final result ?Visible [...] REPAIR performed by Andi Marley MD at [facility] ??? HX LUMBAR DISKECTOMY Left 03/29/2015 SPINAL MICRODISCECTOMY MINIMALLY INVASIVE - LEFT L5-S1 M.I. DISCECTOMY performed by Truman Streeter MD at [facility] ??? HX SINUS SURGERY ??? HX TONSILLECTOMY age 6 ??? [place] COLONOSCOPY FLX DX W/COLLJ SPEC WHEN PFRMD N/A 04/11/2018 COLONOSCOPY performed by Edmond Gant MD at [facility] ??? NH ESOPHAGOGASTRODUODENOSCOPY TRANSORAL DIAGNOSTIC N/A 04/11/2018 ESOPHAGOGASTRODUODENOSCOPY performed by Edmond Gant MD at [facility] ??? NH PART REMV PANC,PROX+REMV DUOD 12/04/2013 WHIPPLE performed by Andi Marley MD at [facility] Past Medical History: Past Medical History: Diagnosis [...] cause CP/SOB ??? Temporomandibular joint disorder wears plumber helper No current facility-administered medications on file prior [...] for Constipation. ??? L GASSERI/B BIFIDUM/B LONGUM (Pricing Assistant HEALTH ORAL) Take by mouth. documented in this encounter OR Notes * Amirah-OP - Judy Nye RN - 04/24/2021 10:43 AM CDT Patient/Family discussion included an explanation that: Standard practice for endoscopists at [facility] includes use of an oral bite block to facilitate upper endoscopy and to prevent you from biting onto the scope or yourself during the procedure.This bite block is placed by a [facility] procedure room nurse/fuel cell technician prior to the procedure. Pressure that [...] same day or prompt dental evaluation by [facility] Dental Medicine. * Amirah-OP - Judy Nye RN - 04/24/2021 10:29 AM CDT Patient/Family discussion included an explanation that: Standard practice for endoscopists at [facility] includes use of an oral bite block to facilitate upper endoscopy and to prevent you from biting onto the scope or yourself during the procedure.This bite block is placed by a [facility] procedure room nurse/fuel cell technician prior to the procedure. Pressure that [...] same day or prompt dental evaluation by [facility] Dental Medicine. * Amirah-OP - Elena John RN - 04/16/2021 12:02 PM CDT Routine Pre-Anesthesia Protocol for GI Lab Procedures [facility] Approved by: [facility] - Medical Executive Committee Approval Date: 02/20/2021 ORDERS ARE ENTERED ???PER PROTOCOL?? Enter the protocol in the patient???s electronic health record using [employer]: .anestprotocolgilab NURSING ORDERS: Monitoring: o Obtain and [...] appropriate, may confirm POC with: Nursing Only [id number] (this lab can be obtained at no [...] injectable antihyperglycemic agents and glucose is less owat601 mg/dl o NPO patients who have NOT [...] MEDICATION ORDERS - entered by the Pharmacist doctor of medicine RESCUE ORDERS - entered by the Pharmacist or the edi programmer Orders Patient has IV access and UNCONCIOUS, [...] Verbalizes understanding. 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 All of the patients questions answered. Encouraged to call back with any further questions. documented in this encounter Miscellaneous Notes * Query - Edmond Gant MD - 04/24/2021 6:49 AM CDT Please respond within 48 hours. Thank you! The authenticated query note is part of the Legal Health Record Patient Name: Elena Fernández Admission Date: 04/24/2021 [facility] #: [id number] Dear Doctor, Clinical indicators and/or treatment for [...] Answer 2: Other (Specify) - error in line o scribe operator. No biopsies for diarrhea taken in diagnostic [...] query please contact me Jozef Dudley at [phone] documented in this encounter Plan of Treatment [...] - 99 mg/dL 04/24/2021 12:22 PM CDT [facility] FURNACE ROASTER NAME POC SHUBHAM CORTES 04/24/2021 12:22 PM CDT [facility] Blood, whole 04/24/2021 12:2 2 PM CDT 04/24/2021 12:31 PM CDT Edmond Gant MD POINT OF CARE TESTIN G Performing Organization Address City/State/[facility] Co de Phone Number [facility]# [id number] [address] [facility] [place] [address] * COLONOSCOPY REPORT (04/24/2021 12:19 PM CDT) Narrative Procedure Note Edmond Gant MD - 04/24/2021 12:19 PM CDT [facility] Endoscopy Patient Name: Elena Fernández Procedure [...] of Addenda: 0 [address] ; [place] [address] Edmond Gant MD GI PROCEDURE ORDERAB LES * PATHOLOGY (04/24/2021 12:05 PM CDT) CASE REPORT Surgical Pathology Report ? Case: [id number] ? Authorizing Provider: ??Edmond Gant MD ?Collected: ? 04/24/2021 12:05 PM ? Ordering Location: ? [facility] [address] ??Received: ?04/24/2021 02:00 PM ? Pathologist: ? Jarred Butler MD ? Specimen: ?Colon, polyps ? 04/25/2021 12:35 PM [facility] FINAL DIAGNOSIS A. Colon, polyps, biopsy: - Tubular adenoma, fragments of. - Sessile serrated adenoma, separate fragments of. 04/25/2021 12:35 PM [facility] S DESCRIPTION Received in one container labeled Elena Fernández and colon polyps are multiple (greater than 10) pieces of red-mackay tissue ranging from 0.2 to 1.0 cm in greatest dimension. All are submitted in cassette A1. [facility] 04/25/2021 12:35 PM [facility] MICROSCOPIC DESCRIPTION The slides are labeled [id number] and Elena Fernández. The colon polyps show [...] in shape or contour. 04/25/2021 12:35 PM [facility] OPERATIVE PROCEDURE 1: COLONOSCOPY 04/25/2021 12:35 PM [facility] CLINICAL INFORMATION 04/25/2021 12:35 PM [facility] COMMENT Special stain and/or immunohistochemical results are interpreted with controls that demonstrate appropriate staining reactions. Note on use of immunocytochemistry reagents: This test was developed and its performance characteristics determined by [facility] Department of Laboratory Medicine. It has not [...] part or completely in the following laboratories: [facility], CLIA #[id number] [address] [place] [address] [facility] CLIA #[id number] [address] [place] [address] [facility], CLIA #[id number] [address] [place] [address] 04/25/2021 12:35 PM CDT [facility] Tissue SPECIMEN FROM COLON / Unknown Collection / Unknown 04/24/2021 12:05 PM CDT 04/24/2021 2:00 PM CDT Edmond Gant MD PATHOLOGY/CYTOLOGY O RDERABLES Performing Organization Address [facility]/State/ZIP Co de Phone Number [id number] [address] [place] [address] * POC GLUCOSE (04/24/2021 10:38 AM CDT) GLUCOSE POC 88 74 - 99 mg/dL 04/24/2021 10:38 AM CDT [facility] FURNACE ROASTER NAME POC PRISCILA ( pn. - GUERRERO )JUDY 04/24/2021 10:38 AM CDT [facility] Blood, whole 04/24/2021 10:3 8 AM CDT 04/24/2021 10:51 AM CDT Edmond Gant MD POINT OF CARE TESTIN G [facility]# [id number] [address] [place] [address] documented in this encounter Visit Diagnoses Not [...] RN) documented in this encounter Care Teams Side Puller Relationship Specialty Start Date End Date Jareth Lopez MD [address] [place] [phone] PCP - General Family Practice 04/11/13 documented as of this encounter
--- OUTSIDE RECORDS SUMMARY | 2024-09-27 17:40 | XMS_ITS | Encounter Summary ---
Author Organization [facility] Address [address] [place] [address] Care Team Providers Care Edge Drummer Name Role Phone Jareth Lopez MD Primary Care Provider [phone] Encounter Details Date Type Department Care Team (Late st Contact Info) Description 12/28/2017 Orders Only [facility] Gastroenterology [place] [address] [place] [address] Edmond Gant MD [address] [facility] [address] [place] [address] Social History Tobacco Use Types [...] on filedocumented in this encounter Care Teams Edge Drummer Relationship Specialty Start Date End Date Jareth Lopez MD [address] [place] [address] PCP - General Family Practice 04/11/13 documented as of this encounter
--- OUTSIDE RECORDS SUMMARY | 2024-09-27 17:40 | XMS_ITS | Encounter Summary ---
Author Organization [facility] Address [address] [place] [address] Care Team Providers Care Shift Supervisor Name Role Phone Jareth Lopez MD Primary Care Provider [phone] Encounter Details Date Type Department Care Team (Late st Contact Info) Description 12/22/2017 Chart Note [facility] Gastroenterology [place] A [address] [place] [address] Edmond Gant MD [address] [place] [address] Social History Tobacco Use Types Packs/Day Years Used Date Smoking Tobacco: Never Smokeless Tobacco: Never Alcohol Use Standard Drinks/Week Comments Yes 0 (1 standard drink = 0.6 oz pur e alcohol) rarely Sex and Gender Information Value Date Recorded Sex Assigned at Not on file Gender Identity Not on file Sexual Orientation Not on file documented as of this encounter [facility] * Mihai Schultz - 12/22/2017 7:50 AM CDT Images from the original note were not included. Message Received: Yesterday Message Contents Edmond Gant MD Cook, [place] ?? Okay to schedule Previous Messages ----- Message ----- From: Mihai Schultz Sent: 12/21/2017 ?? 1:45 PM To: Edmond Gant MD, Mihai Schultz Hi, I have a referral for pt to get colon and egd, dx:Pancreatic adenocarcinoma, can you look at chart and let me know if okay to schedule for both procedures. Thanks so much. documented in this encounter Plan of Treatment Not on file documented as of this encounter Visit Diagnoses Not on filedocumented in this encounter Care Teams Shift Supervisor Relationship Specialty Start Date End Date Jareth Lopez MD [address] [place] [address] PCP - General Family Practice 04/11/13 documented as of this encounter
--- OUTSIDE RECORDS SUMMARY | 2024-09-27 17:40 | XMS_ITS | Encounter Summary ---
Author Organization [facility] Address [address] [place] [address] Care Team Providers Care Incising Machine Operator Name Role Phone Jareth Lopez MD Primary Care Provider Reason for Referral * Outpatient Services (Routine) - Closed Specialty Diagnoses / Procedures Referred By Contac t Referred To Contact CT Scan Diagnoses Pancreatic adenocarcinoma Procedures CT ABDOMEN PELVIS W CONTRAST Andi Marley MD [address] [facility] [address] [place] [address] Referral ID Status Reason Start Date Expiration Date V isits Requested Visits Authorized [id number] Closed STL CTS 12/13/2018 01/11/2019 1 1 * Eval and Treat (Routine) - Closed Specialty Diagnoses / Procedures Referred By Contac t Referred To Contact Gastroenterology Diagnoses Pancreatic adenocarcinoma Epigastric pain Andi Marley MD [address] [facility] [address] [place] [phone] Edmond Gant MD [address] [address] Referral ID Status Reason Start Date Expiration Date V isits Requested Visits Authorized [id number] Closed CRS To Schedule (STL) 12/21/2017 12/22/2018 1 1 Reason for Visit * Reason Comments Follow Up Encounter Details Date Type Department Care Team (Latest Contact Info) Description 12/21/2017 2:00 PM CDT Office Visit [facility] Surgical Spec [place] [id number] [place] [address] Andi Marley MD [address] [place] [address] Pancreatic adenocarcinoma (Primary Dx); Epigastric pain Social History Tobacco Use Types Packs/Day Years [...] Sign Reading Time Taken Comments Blood Pressure 150/87 12/21/2017 1:08 PM CDT Pulse 98 12/21/2017 1:08 PM CDT Temperature - - Respiratory Rate - - Oxygen Saturation - - Inhaled Oxygen Concentration - - Weight 70.8 kg (156 lb) 12/21/2017 1:08 PM CDT Height 160 cm (5' 3 ) 12/21/2017 1:08 PM CDT Body Mass Index 27.63 12/21/2017 1:08 PM CDT documented in this encounter [facility] * Andi Marley MD - 12/21/2017 1:37 PM CDT Subjective: 67-year-old female who is 4 years status post a Whipple operation for a stage I pancreatic adenocarcinoma. she has an intentional 15 pound weight loss. She has no change in her abdominal incision. Her bowelmovements are normal in color. Her urine is normal in color. She has no blood per rectum. There is occasional epigastric pain which occurs several times a week after eating fatty meals. She has no positional changes make the pain better or worse. The pain does not radiate. Patient is a 3 to a 5 on a scale of 1-10 in her upper abdomen. She thinks the pain is similar to the pain she had prior to surgery. The pain as I compare with bowel movements There are no hospital problems to display [...] unspecified MVP ??? Temporomandibular joint disorder wears camp guard Past Surgical History: Procedure Laterality Date [...] REPAIR performed by Andi Marley MD at [facility] ??? HX LUMBAR DISKECTOMY Left 03/29/2015 SPINAL MICRODISCECTOMY MINIMALLY INVASIVE - LEFT L5-S1 M.I. DISCECTOMY performed by Truman Streeter MD at [facility] ??? HX SINUS SURGERY ??? HX TONSILLECTOMY age 6 ??? OR PART REMV PANC,PROX+REMV DUOD 12/04/2013 WHIPPLE performed by Andi Marley MD at [facility] (Not in a hospital admission) Allergies [...] major depressive episodes requiring hospitalization Objective: BP (!) 150/87 Pulse 98 Ht 5' 3 (1.6 m) Wt 70.8 [...] sounds normal. No masses, No organomegaly.Well- healed transverse incision with no signs of hernia Extremities: Extremities normal, atraumatic, no cyanosis or edema. Pulses: 2+ and symmetric all extremities. Skin: Skin color, texture, turgor normal. No rashes or lesions. Lymph nodes: Cervical, supraclavicular, and axillary nodes normal. Neurologic: CNII-XII intact. Normal strength, sensation and reflexes throughout. DATA REVIEW CT scan of the abdomen and pelvis and chest was reviewed by myself shows trace no sign of metastatic disease and no recurrent hernia. There is no bowel obstruction. Assessment: 67-year-old female 4 years status post Whipple for pancreatic adenocarcinoma with no sign of recurrence but does have epigastric abdominal pain and is in need of a screening colonoscopy Plan: The patient's cook vacuum kettle in [facility] does not do EGDs and colonoscopies at the same time. Iwould like for her to have an EGD to see if she has an anastomotic ulcer is causing her postprandial epigastric pain. I referred her to Dr. Gant for this. Otherwise, I'll see her back in one year. documented in this encounter Plan of Treatment Scheduled Referrals Name Type Priority Associated Diagnoses Order Schedule AMB REFERRAL TO GASTROENTEROLOGY Outpatient Referral Routine Pancreatic adenocarcinoma Epigastric pain Ordered: 12/21/2017 documented as of this encounter Results * CT ABDOMEN PELVIS W CONTRAST (12/16/2018 8:17 AM CDT) Anatomical Region Laterality Modality Abdomen Computed Tomogra phy 12/16/2018 8:21 AM CDT Impressions 12/16/2018 8:39 AM CDT IMPRESSION: Stable appearance of abdomen and pelvis. No evidence of metastatic or recurrent disease. DICTATION LOCATION: Location 1 [facility] Narrative 12/16/2018 8:[address] abdomen and pelvis with contrast 12/16/2018. HISTORY: Pancreatic adenocarcinoma. TECHNIQUE: Contiguous 1.25 mm axial enhanced images were obtained through the abdomen and pelvis. The examination was performed with the adjustment of mA according to the patient size and/or the use of Iterative Reconstruction Technique. FINDINGS: Comparison study is dated 12/21/2017. The lung bases are unremarkable. The liver, spleen, and adrenal glands are normal. 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 No mass lesion is seen in the remaining pancreas. No retroperitoneal lymphadenopathy is identified. Kidneys enhance symmetrically without focal lesion or hydronephrosis. No bowel obstruction or focal bowel wall thickening is seen. The urinary bladder appears normal. No pelvic mass or lymphadenopathy is seen. Degenerative disc disease is seen in the lumbar spine. There is mild levoscoliosis. Procedure Note Nohemy Billingsley MD - 12/16/2018 CT abdomen and pelvis with contrast 12/16/2018. HISTORY: Pancreatic adenocarcinoma. TECHNIQUE: Contiguous 1.25 mm axial enhanced images were obtained through the abdomen and pelvis. The examination was performed with the adjustment of mA according to the patient size and/or the use of Iterative Reconstruction Technique. FINDINGS: Comparison study is dated 12/21/2017. The lung bases are unremarkable. The liver, spleen, and adrenal glands are normal. 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 No mass lesion is seen in the remaining pancreas. No retroperitoneal lymphadenopathy is identified. Kidneys enhance symmetrically without focal lesion or hydronephrosis. No bowel obstruction or focal bowel wall thickening is seen. The urinary bladder appears normal. No pelvic mass or lymphadenopathy is seen. Degenerative disc disease is seen in the lumbar spine. There is mild levoscoliosis. IMPRESSION: Stable appearance of abdomen and pelvis. No evidence of metastatic or recurrent disease. DICTATION LOCATION: Location 1 - [facility] Andi Marley MD CT ORDERABLES documented in this encounter Visit Diagnoses Diagnosis Pancreatic adenocarcinoma- Primary Malignant neoplasm of pancreas, part unspecified Epigastric pain Abdominal pain, epigastric Pancreatic adenocarcinoma Malignant neoplasm of pancreas, part unspecified documented in this encounter Care Teams Incising Machine Operator Relationship Specialty Start Date End Date Jareth Lopez MD [address] [place] [address] PCP - General Family Practice 04/11/13 documented as of this encounter
--- OUTSIDE RECORDS SUMMARY | 2024-09-27 17:40 | XMS_ITS | Encounter Summary ---
Author Organization [facility] Address [address] [place] [address] Care Team Providers Care Wheelchair Van Operator First Responder Name Role Phone Jareth Lopez MD Primary Care Provider [phone] Reason for Referral * Outpatient Services (Routine) - Closed Specialty Diagnoses / Procedures Referred By Contac t Referred To Contact CT Scan Diagnoses Pancreatic adenocarcinoma Procedures CT ABDOMEN PELVIS W CONTRAST [facility] Surgical [facility] [place] [address] [place] [address] [place] [phone] Referral ID Status Reason Start Date Expiration Date V isits Requested Visits Authorized [id number] Closed [facility] CTS 06/12/2014 07/13/2014 1 1 Reason for Visit * Outpatient Services (Routine) - Closed Specialty Diagnoses / Procedures Referred By Contac t Referred To Contact CT Scan Diagnoses Pancreatic adenocarcinoma Procedures CT ABDOMEN PELVIS W CONTRAST [facility] Surgical [facility] [place] [address] [address] [place] [address] Referral ID Status Reason Start Date Expiration Date V isits Requested Visits Authorized [id number] Closed [facility] CTS 06/12/2014 07/13/2014 1 1 Encounter Details Date Type Department Care Team (Latest Contact Info) Description 07/03/2014 8:18 AM CDT - 07/03/2014 11:59 PM CDT Hospital Encounter [facility] CT Scan [place] [address] [place] [address] nAdi Marley MD [address] [facility] [address] [place] [address] Discharge Disposition: Home or Self [...] by mouth daily. L GASSERI/B BIFIDUM/B LONGUM ([employer] HEALTH ORAL) Take by mouth. docusate sodium (COLACE) 100 mg capsule Take 1 Cap by mouth 2 times daily. Take while taking narcotics for pain 30 Cap 0 12/10/2013 12/25/2014 METFORMIN HCL (METFORMIN ORAL) Take 500 mg by mouth Daily LATE. 12/25/2014 METHYLCELLULOSE (CITRUCEL ORAL) Take by mouth daily. 06/05 documented as of this encounter Miscellaneous Notes * Treatment Plan - Amira Arteaga RN - 07/03/2014 9:02 AM CDT IMAGING SERVICES MEDICATION and FLUSH PROTOCOL [facility] ORDERS ARE ENTERED ???PER PROTOCOL?? Communication Orders: [...] Services and Pharmacy & Therapeutics_ Date: _10/2013 documented in this encounter Plan of Treatment Not on file documented as of this encounter Procedures Procedure Name Priority Date/Time Associated Diagnosis Comments CT ABDOMEN PELVIS W CONTRAST Routine 07/03/2014 9:51 AM CDT Pancreatic adenocarcinoma POC CREATININE Routine 07/03/2014 9:03 AM CDT documented in this encounter Results * CT ABDOMEN PELVIS W CONTRAST (07/03/2014 9:51 AM CDT) Anatomical Region Laterality Modality Abdomen Computed Tomogra phy 07/03/2014 9:34 AM CDT Impressions 07/03/2014 10:55 AM CDT IMPRESSION: 1. Prior Whipple procedure. 2. No evidence of metastatic disease or other acute abnormality. Dictated from Location 1, [facility] ? Narrative 07/03/2014 10:[address] SCAN OF THE ABDOMEN AND PELVIS WITH IV CONTRAST, 07/03/2014 CLINICAL HISTORY: Pancreatic adenocarcinoma. TECHNIQUE: Axial images were obtained from the lung bases through the symphysis pubis following oral and IV contrast administration. Comparison is made to a prior exam dated 02/07/2014. TOTAL EXAM DLP: 413.54 mGy-cm. FINDINGS: The lung bases are clear. There are postsurgical changes consistent with a prior Whipple procedure. The liver, spleen, pancreatic body and tail, adrenal glands and kidneys are within normal limits. The aorta is atherosclerotic but not aneurysmal. There is no bowel dilatation or wall thickening. There is no lymphadenopathy, free air or free fluid. In the pelvis, the bowel loops and bladder appear normal. The uterus is present. There is no lymphadenopathy or free fluid. There are degenerative changes in the thoracolumbar spine. Procedure Note Charo Palacios MD - 07/03/2014 CT SCAN OF THE ABDOMEN AND PELVIS WITH IV CONTRAST, 07/03/2014 CLINICAL HISTORY: Pancreatic adenocarcinoma. TECHNIQUE: Axial images were obtained from the lung bases through the symphysis pubis following oral and IV contrast administration. Comparison is made to a prior exam dated 02/07/2014. TOTAL EXAM DLP: 413.54 mGy-cm. FINDINGS: The lung bases are clear. There are postsurgical changes consistent with a prior Whipple procedure. The liver, spleen, pancreatic body and tail, adrenal glands and kidneys are within normal limits. The aorta is atherosclerotic but not aneurysmal. There is no bowel dilatation or wall thickening. There is no lymphadenopathy, free air or free fluid. In the pelvis, the bowel loops and bladder appear normal. The uterus is present. There is no lymphadenopathy or free fluid. There are degenerative changes in the thoracolumbar spine. IMPRESSION IMPRESSION: 1. Prior Whipple procedure. 2. No evidence of metastatic disease or other acute abnormality. Dictated from Location 1, [facility] Andi Marley MD CT ORDERABLES * POC CREATININE (07/03/2014 9:03 AM CDT) CREATININE POC 0.9 0.5 - 1.0 mg/dL INTERFACE SYSTEM Comment: The calculation for the estimated GFR on the i-STAT POC instrument has been changed to correspond to the IDMS-traceable MDRD Study, upon the recommendation of the curriculum writer of the i-STAT instrument. ??The change was effective in our laboratory 09/10/2008. ??The impact of this change to the estimated GFR is minimal. ??This calculation is used by the main laboratory methodology also. CLIA LICENSE [id number] INTERFACE SYSTEM GFR, >60 >=60 mL/min/1. 7 sq meter INTERFACE SYSTEM GFR >60 >=60 mL/min/1. 7 sq meter INTERFACE SYSTEM Blood 07/03/2014 9:03 AM CDT 07/03/2014 9:03 AM CDT Andi Marley MD POINT OF [...] Oral, PRE-PROCEDURE ONCE, 1 dose, Starting on Wed07/03/14 at 0951, Until Wed07/03/14 at 0951, Routine Given 07/03/2014 9:51 AM CDT 50 mL ioversol (OPTIRAY 320) 320 mg iodine/mL syringe 125 mL 125 mL, IV, INTRA-PROCEDURE ONCE, 1 dose, Starting on Wed07/03/14 at 0951, Until Wed07/03/14 at 0952 Given 07/03/2014 9:52 AM CDT 125 mL documented in this encounter Care Teams Wheelchair Van Operator First Responder Relationship Specialty Start Date End Date Jareth Lopez MD [address] [place] [address] PCP - General Family Practice 04/11/13 documented as of this encounter
--- OUTSIDE RECORDS SUMMARY | 2024-09-27 17:41 | XMS_ITS | Encounter Summary ---
Author Organization [facility] Address [address] [place] [address] Care Team Providers Care Organ Teacher Name Role Phone Jareth Lopez MD Primary Care Provider [phone] Reason for Visit * Reason Comments Post-op Visit Encounter Details Date Type Department Care Team (Late st Contact Info) Description 12/21/2013 3:00 PM CDT Office Visit [facility] Surgical Spec [place] [address] [place] [address] [place] [address] Andi Marley MD [address] [place] [address] Pancreas cyst (Primary Dx) Social History Tobacco Use Types [...] Sign Reading Time Taken Comments Blood Pressure 126/84 12/21/2013 2:59 PM CDT Pulse 92 12/21/2013 2:59 PM CDT Temperature - - Respiratory Rate - - Oxygen Saturation - - Inhaled Oxygen Concentration - - Weight 80.3 kg (177 lb) 12/21/2013 2:59 PM CDT Height 162.6 cm (5' 4 ) 12/21/2013 2:59 PM CDT Body Mass Index 30.38 12/21/2013 2:59 PM CDT documented in this encounter Progress Notes * Andi Marley MD - 12/26/2013 5:25 PM CDT Patient returns to the office 2 weeks after her will procedure for pancreatic adenocarcinoma. She'shad emesis on 2 separate occasions. She has no trouble with liquids but has mild nausea with large solid meals. Her bowel movements are floating sometimes and sinking at other times. She has minimal incisional pain that is controlled with medication. She is having no fevers. She has no drainage from her incision. [id number] transverse incision with no signs of infection. She has minimal incisional tenderness. Abdomen is otherwise soft and nondistended and it is still obese Plan-check labs in the office today. Follow with me in another 2 weeks. We discussed her pathology report showed 2 small foci of adenocarcinoma which I do not think she needs any adjuvant therapy fora period documented in this encounter Plan of Treatment Not on file documented as of this encounter Results * (ABNORMAL) COMPREHENSIVE METABOLIC PANEL (12/21/2013 4:00 PM CDT) SODIUM 139 135 - 145 mmol/L [facility] - [facility] POTASSIUM 4.2 3.5 - 4.9 mmol/L [facility] - . [facility] CHLORIDE 94(L) 96 - 108 mmol/L [facility] - . [facility] CO2 28 22 - 30 mmol/L [facility] - . [facility] CALCIUM 10.4(H) 8.6 - 10.2 mg/dL [facility] - . NEAL BUN 20 6 - 20 mg/dL [facility] - . [facility] CREATININE 0.83 0.51 - 0.95 mg/dL [facility] - . [facility] GLUCOSE 160(H) 65 - 99 mg/dL [facility] - . [facility] TOTAL PROTEIN 8.0 6.3 - 8.6 g/dL [facility] - . [facility] ALBUMIN 4.4 3.4 - 4.8 g/dL [facility] - . [facility] BILIRUBIN TOTAL 0.3 0.2 - 1.0 mg/dL [facility] - . [facility] ALKALINE PHOSPHATASE 75 35 - 104 U/L [facility] - [facility] AST 22 12 - 32 U/L [facility] ALT 18 0 - 31 U/L [facility] GFR, >60 >=60 mL/min/1.7 sq meter [facility] GFR >60 >=60 mL/min/1.7 sq meter [facility] Comment: eGFR has not been validated for use in the elderly (>70 years of age), women, patients with serious co-morbid conditions, or persons with extremes of body size or muscle mass and should also be interpreted with caution in patients with acute kidney failure, dialysis dependant patients, patients reporting exceptional dietary intake (e.g.vegetarian diet, high protein diets, creatine supplementation), and patients with severe liver disease. eGFR is not valid for patients <18 years of age. ?? Based on National Kidney Disease Education Program. Blood specimen (specimen) 12/21/2013 4:00 PM CDT 12/22/2013 9:16 AM CDT Andi Marley MD CHEMISTRY ORDERABLES [facility] CLIA# [id number] [address] [facility] [place] [id number] * (ABNORMAL) CBC WITH DIFFERENTIAL (12/21/2013 4:00 PM CDT) WBC 12.9(H) 4.0 - 9.8 K/uL [facility] RBC 4.39 3.90 - 4.90 M/uL [facility] HEMOGLOBIN 13.3 11.8 - 14.8 g/dL [facility] HEMATOCRIT 41.1 35.5 - 44.0 % [facility] MCV 93.6 82.0 - 99.0 fL [facility] MCH 30.3 27.2 - 32.6 pg [facility] MCHC 32.4 31.5 - 35.5 % [facility] PLATELETS 450(H) 140 - 350 K/uL [facility] MPV 11.1 9.3 - 12.4 [facility] RDW 13.7 11.5 - 14.5 % [facility] RDW-STDEV 46.1 37.1 - 48.7 [place] [facility] NEUTROPHILS 74(H) 45 - 70 % [facility] LYMPHOCYTES 17 16 - 45 % [facility] - . [facility] MONOCYTES 7 3 - 13 % [facility] EOSINOPHILS 2 0 - 7 % [facility] - . [facility] BASOPHILS 0 0 - 2 % [facility] NEUTROPHIL ABSOLUTE 9.50(H) 1.90 - 7.00 K/uL [facility] LYMPHOCYTE ABSOLUTE 2.20 0.70 - 4.50 K/uL [facility] MONOCYTE ABSOLUTE 0.96 0.10 - 1.30 K/uL [facility] EOSINOPHIL ABSOLUTE 0.22 0.00 - 0.70 K/uL [facility] BASOPHILS ABSOLUTE 0.02 0.00 - 0.20 K/uL [facility] Blood specimen (specimen) 12/21/2013 4:00 PM CDT 12/22/2013 9:38 AM CDT Andi Marley MD HEMATOLOGY ORDERABLE S [facility]# [id number] [address] [place] [address] documented in this encounter Visit Diagnoses Diagnosis Pancreas cyst- Primary Cyst and pseudocyst of pancreas documented in this encounter Care Teams Organ Teacher Relationship Specialty Start Date End Date Jareth Lopez MD [address] [place] [address] PCP - General Family Practice 04/11/13 documented as of this encounter
--- OUTSIDE RECORDS SUMMARY | 2024-09-27 17:41 | XMS_ITS | Encounter Summary ---
Author Organization [facility] Address [address] [place] [address] Care Team Providers Care Line Supervisor Name Role Phone Jareth Lopez MD Primary Care Provider Encounter Details Date Type Department Care Team (Late st Contact Info) Description 04/20/2013 Abstract [facility] Ict Programmer [address] [address] Jareth Lopez MD [address] [place] [address] Social History Tobacco Use Types Packs/Day Years Used Date Smoking Tobacco: Never Alcohol Use Standard Drinks/Week Comments Not Asked 0 (1 standard drink = 0.6 oz pur e alcohol) Sex and Gender Information Value Date Recorded Sex Assigned at Not on file Gender Identity Not on file Sexual Orientation Not on file documented as of this encounter Plan of Treatment Not on file documented as of this encounter Visit Diagnoses Not on filedocumented in this encounter Care Teams Line Supervisor Relationship Specialty Start Date End Date Jareth Lopez MD [address] [place] [address] PCP - General Family Practice 04/11/13 documented as of this encounter
--- OUTSIDE RECORDS SUMMARY | 2024-09-27 17:41 | XMS_ITS | Encounter Summary ---
Author Organization [facility] Address [address] [place] [address] Care Team Providers Care Book Publisher Name Role Phone Jareth Lopez MD Primary Care Provider Encounter Details Date Type Department Care Team (Late st Contact Info) Description 09/15/2013 Orders Only [facility] Surgical Spec [place] [address] [place] [address] Solo Capps MD [address] [facility] [address] [place] [phone] Social History Tobacco Use Types Packs/Day Years [...] Procedure Name Priority Date/Time Associated Diagnosis Comments ENDOSCOPY, UPPER GI Routine 09/07/2013 documented in this encounter Results * (ABNORMAL) ENDOSCOPY, UPPER GI (09/07/2013) Solo Capps MD GI PROCEDURE [facility] documented in this encounter Visit Diagnoses Not on filedocumented in this encounter Care Teams Book Publisher Relationship Specialty Start Date End Date Jareth Lopez MD [address] [place] [address] PCP - General Family Practice 04/11/13 documented as of this encounter
--- OUTSIDE RECORDS SUMMARY | 2024-09-27 17:41 | XMS_ITS | Encounter Summary ---
Author Organization [facility] Address 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 Automatic Name Role Phone Jareth Lopez MD Primary Care Provider [phone] Reason for Visit * Auth/Cert - Closed Specialty Diagnoses / Procedures Referred By Vasquez gibbs Referred To Contact General Surgery Procedures [facility] Or [address] [place] [address] Referral ID Status Reason Start Date Expiration Date Visits Re quested Visits Authorized [id number] Closed 1 1 Encounter Details Date Type Department Care Team (Late st Contact Info) Description 12/04/2013 7:15 AM PCAT INSTRUCTOR - 12/04/2013 12:45 PM PCAT INSTRUCTOR Surgery [facility] Operating Room [address] [place] [address] Ann Griggs MD [address] [facility] [address] [place] [address] [place] Surgery Details Date/Time Status Location OR Service Patient Class Case Class Case Type Trauma Case? 12/04/2013 7:15 AM Posted [facility] OR General Surgery Surgery Admit Elective No Panel 1 Procedure LRB Anes Op Region Wound Class Comments [place] N/A General Abdomen Clean Contaminated-I I Surgeon Surgeon Role Service Panel Ann Griggs MD Primary General Surgery 1 Case Notes JOSE RAFAEL, [phone] YULIANA Gibbs [id number] documented in this encounter Social History Tobacco [...] Sign Reading Time Taken Comments Blood Pressure 134/62 12/04/2013 12:30 PM PCAT INSTRUCTOR Pulse 84 12/04/2013 6:21 AM PCAT INSTRUCTOR Temperature 37 ??C (98.6 ??F) 12/04/2013 11:45 AM PCAT INSTRUCTOR Respiratory Rate 16 12/04/2013 12:30 PM PCAT INSTRUCTOR Oxygen Saturation 97% 12/04/2013 12:30 PM PCAT INSTRUCTOR Inhaled Oxygen Concentration - - Weight 88 kg (194 lb) 12/04/2013 6:21 AM PCAT INSTRUCTOR Height 163.8 cm (5' 4.5 ) 11/27/2013 3:20 PM PCAT INSTRUCTOR Body Mass Index 32.95 11/27/2013 3:20 PM PCAT INSTRUCTOR documented in this encounter Discharge Summaries * Ann Griggs MD - 12/10/2013 8:37 AM CDT Patient: Rebel Schultz / 63 y.o. / female : 1950 Admit date: 12/04/2013 Discharge date: 12/10/2013 Admission Dx: Patient Active Problem List Diagnosis Code ??? 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 Hypertension 401.9 ??? Diabetes mellitus 250.00 ??? GERD (gastroesophageal reflux disease) 530.81 ??? Hyperlipidemia 272.4 ??? Elevated LFTs 790.6 ??? Electrolyte imbalance 276.9 Discharge Dx: Same as problem list. Attending Physician: Dr. Ann Griggs Procedures: Procedure(s): [facility] Course: underwent [place] and was d/c'd POD 6 Discharge Condition: good. Disposition: home. Discharge medications: Current Discharge Medication List START taking these medications docusate sodium 100 mg capsule Commonly known as: COLACE Take 1 Cap by mouth 2 times daily. Take while taking narcotics for pain Provider: Ann Griggs Quantity: 30 Cap Refills: 0 oxyCODONE-acetaminophen 5-325 mg tablet Commonly known as: PERCOCET Take 1-2 Tabs by mouth every 4 hours as needed for Pain for 30 days. Provider: Ann Griggs Quantity: 30 Tab Refills: 0 CONTINUE taking these medications CALTRATE PLUS ORAL Take by mouth daily. Refills: 0 CITRUCEL ORAL Take by mouth daily. Refills: 0 ESTROVEN PM ORAL Take by mouth. Refills: 0 METFORMIN ORAL Take 500 mg by mouth Daily LATE. Refills: 0 MULTIVITAMIN ORAL Take by mouth daily. Refills: 0 [facility] ORAL Take by mouth. Refills: 0 POTASSIUM ORAL Take by mouth daily. Refills: 0 PriLOSEC 2.5 mg Sudr Take by mouth daily. Refills: 0 Generic drug: Omeprazole Magnesium PROBIOTIC FORMULA ORAL Take by mouth daily. Refills: 0 triamterene-hydrochlorothiazide 37.5-25 mg tablet Commonly known as: MAXZIDE 25 Take 1 Tab by mouth daily. Refills: 0 TRILIPIX ORAL Take 135 mg by mouth daily. Refills: 0 TYLENOL ORAL Take by mouth. Prn headache Refills: 0 Where to Get Your Medications Information on where to get these meds is not yet available. Ask your nurse or doctor. - docusate sodium 100 mg capsule - oxyCODONE-acetaminophen 5-325 mg tablet Patient instructions: 1. Discharge to home 2. Follow-up two weeks Office- [phone] 3. May shower without restrictions. No tub baths for 2 weeks. 4. Routine wound care/teach wound care if applicable. 5. Activity no restrictions 6. Prescription on chart. Please give to patient. 7. Call if temperature is greater than 101.5, severe pain, nausea, vomiting, wound drainage, questions or concerns. 8. Diet: No restriction. Signed: Dr Ann Griggs MD 12/10/2013, 8:38 AM documented in this encounter Discharge Instructions * Discharge Instructions* Ann Griggs MD - 12/10/2013 8:38 AM CDT POSTOPERATIVE INSTRUCTIONS AFTER ABDOMINAL SURGERY 1. You may resume a regular diet as soon as tolerated but avoid raw vegetables and foods that you need to chew a fair amount as this increases the amount of air you swallow and can cause abdominal discomfort. Small frequent meals to begin with may be tolerated easier in the early postoperative stage. Increase at your own pace. 2. The patient may experience either constipation or diarrhea after surgery and this may be caused by anesthesia, pain medications or reaction to surgery. This is not uncommon. The patient may take any vfps-dga-hrhyduv medication(s) that have worked previously to correct [...] to call the office for postoperative appointment ([phone]). The patient will need to be seen in the office 2 weeks after the surgery date. Please call ahead for appointment.At the time of postoperative office visit, physical activity/work release will be discussed and release forms given. 5. The patient may resume activity slowly. The patient may not engage in strenuous activity or heavy lifting (>15 lbs) until cleared by physician, which can be [...] if there are any concerns or questions. documented in this encounter Medications at Time of Discharge Medication Sig Dispensed Refills Start Date End Date triamterene-hydrochloro thiazide (MAXZIDE 25) 37.5-25 mg tablet Take 1 Tab by mouth daily. L GASSERI/B BIFIDUM/B LONGUM (whistleBox ORAL) Take by mouth. oxyCODONE-acetaminophen (PERCOCET) 5-325 mg tablet Take 1-2 Tabs by mouth every 4 hours as needed for Pain for 30 days. 30 Tab 0 12/10/2013 01/09/2014 docusate sodium (COLACE) 100 mg capsule Take 1 Cap by mouth 2 times daily. Take while taking narcotics for pain 30 Cap 0 12/10/2013 12/25/2014 MULTIVIT,CA,MIN/D3/HERB AL #161 (ESTROVEN PM ORAL) Take by mouth. 01/04/2014 METFORMIN HCL (METFORMIN ORAL) Take 500 mg by mouth Daily LATE. 12/25/2014 FENOFIBRIC ACID, CHOLINE, (TRILIPIX ORAL) Take 135 mg by mouth daily. 07/03/2014 CALCIUM CARB/VIT D2/MINERALS (CALTRATE PLUS ORAL) Take by mouth daily. 014 MULTIVITAMIN ORAL Take by mouth daily. POTASSIUM ORAL Take by mouth daily. 01/04 METHYLCELLULOSE (CITRUCEL ORAL) Take by mouth daily. 06/05 documented as of this encounter Progress Notes * Ann Griggs MD - 12/12/2013 8:00 AM CDT Response to query. 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 * Jennifer Cowan RN - 12/10/2013 9:07 AM CDT Rebel Schultz will be discharged via wheelchair to home. Rebel Schultz is accompanied by spouse andwill be transported via private vehicle. Went over AVS, scripts given. * Ann Griggs MD - 12/10/2013 8:36 AM CDT tristen PO, no n/v, pain controlled AVSS abd soft, nd Inc c/d/i Wbc nml POD 6 D/c home F/up with me in 2 weeks Ayaka * Jillian Gonzalez MD - 2013 2:59 PM CST k 2.8- replace with iv and po kcl INSTRUCTOR * Ann Griggs MD - 2013 7:29 AM CST Min nausea, no emesis, + BM AVSS abd soft, nd, inc c/d/i Drains serosang Wbc 10 POD 5 Inc diet OOB Likely home w/in the next day or two Ayaka INSTRUCTOR * Jillian Gonzalez MD - 12/08/2013 11:37 AM CST [facility] Hospitalist Progress Note Admit Date: 12/04/2013 Date of Note: 12/08/2013, 11:37 AM PCP: Jareth Lopez MD LOS: 4 days Previous history of present illness, review of systems, medications, labs, studies, notes, orders and consults have been reviewed today. Subjective: Pain controlled, no other complaints, full liquids today Objective: BP 174/75 Pulse 84 Temp(Src) 99 ??F (37.2 ??C) (Oral) Resp 16 Ht 5' 4.5 (1.638 m) Wt 195lb (88.451 kg) BMI 32.97 kg/m2 SpO2 98% Exam: General appearance alert, cooperative, no distress, appears stated age, NGT now removed Lungs clear to auscultation bilaterally Heart regular rate and rhythm, S1, S2 normal, no murmur, click, rub or gallop Abdomen abd binder on, BS [resent Extremities extremities normal, atraumatic, no cyanosis or edema Pulses 2+ and symmetric neuro No gross deficits, a and o x 3 Data Base: I have reviewed all labs and pertinent ones are noted below. 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 GERD (gastroesophageal reflux disease)- cont on iv H2 melvin , change to po in am Hyperlipidemia- on triplix at home, resume when taking po Elevated transaminases- likely due to surgery, monitor, improving Hypokalemia- replace prn, bmp in am On prophy heparin per primary team Aury present Full code Current Planned Disposition - per primary team Plan discussed with patient and her ; questions answered; patient agrees with current plan. More than 35 minutes were spent in the care of this patient today; this may include family conference, nursing conference and discussion with any consultants; of this time (time-x)minutes were spent counseling the patient and family on the following: . Jillian Gonzalez MD MD [facility] Hospitalist [phone] INSTRUCTOR * Ann Griggs MD - 12/08/2013 8:00 AM CST C/o RUQ pain this am relieved with +flatus/BM Afeb, VSS abd soft, nd Inc c/d/i Drains serosang POD 4 Trial full liquids OOB D/c epidural, d/c lorenzo 6 hrs after INSTRUCTOR * Jamar Syed MD - 12/07/2013 5:56 PM CST Patient alert and up in chair. Epidural site hurts when laying in bed but not when up walking around. This was checked by Noman WOODS earlier in the day. No erythema. Pain control good. Wiggles feet well. Itching no longer bothersome. Continue epidural till tomorrow. INSTRUCTOR * Jillian Gonzalez MD - 12/07/2013 10:31 AM CST Did not finish iv kcl as it was painful and iv infiltrated. Will give 20 meq po once NGT removed and she startes po later today, k this am was 3.4, she received up to 20 meq thru iv. BG now 70-145, changed her fluids to dextrose half NS yesterday, cont for now as she is npo, cont SSI INSTRUCTOR * Ann Griggs MD - 12/07/2013 6:44 AM CST BS better controlled Pain is a 6 of 10 Afeb, VSS abd soft, nd NGT bilious Drains serosang POD 3 Clamping trial NGT OOB Cont epidural another day Cont lorenzo / epirual INSTRUCTOR * Jillian Gonzalez MD - 12/06/2013 8:16 PM CST [facility] Hospitalist Progress Note Admit Date: 12/04/2013 Date of Note: 12/06/2013, 8:16 PM PCP: Jareth Lopez MD LOS: 2 days Previous history of present illness, review of systems, medications, labs, studies, notes, orders and consults have been reviewed today. Subjective: Pain controlled, no other complaints Objective: BP 126/45 Pulse 91 Temp(Src) 98.4 ??F (36.9 ??C) (Oral) Resp 16 Ht 5' 4.5 (1.638 m) Wt 195 lb (88.451 kg) BMI 32.97 kg/m2 SpO2 95% Exam: General appearance alert, cooperative, no distress, appears stated age, NGT noted Lungs clear to auscultation bilaterally Heart regular rate and rhythm, S1, S2 normal, no murmur, click, rub or gallop Abdomen abd binder on, drains noted, BS not heard Extremities extremities normal, atraumatic, no cyanosis or edema Pulses 2+ and symmetric neuro No gross deficits, a and o x 3 Data Base: I have reviewed all labs and pertinent ones are noted below. 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 BG low, change fluids to D5 half NS if ok with surgery GERD (gastroesophageal reflux disease)- cont on iv H2 melvin Hyperlipidemia- on triplix at home, resume when taking po Elevated transaminases- likely due to surgery, monitor, improving Hypokalemia- replace with iv kcl On prophy heparin per primary team Aury present Full code Current Planned Disposition - per primary team Plan discussed with patient; questions answered; patient agrees with current plan. More than 30 minutes were spent in the care of this patient today; this may include family conference, nursing conference and discussion with any consultants; of this time (time-x)minutes were spent counseling the patient and family on the following: . Jillian Gonzalez MD MD [facility] Hospitalist [phone] INSTRUCTOR * Yi Mckee RN - 12/05/2013 3:17 PM CST Undress and Assess performed by ADRIAN stallworth and does not have skin breakdown. Wound care consult was notinitiated. Abdominal surgical sites covered by dressing; c/d/i. INSTRUCTOR * Maile West MD - 12/05/2013 11:06 AM CST 12/05/2013 11:06 AM Acute Pain Service Name: Rebel Schultz Age: 62 y.o. Sex: female CSN: [id number] POD # 1. Rebel is doing well, she is awake, alert, pain is well controlled. Epidural Infusing at 6 cc/hr Pain scale at rest: 0/10 Pain scale with movement/cough: 2/10 Sedation: no Pruritis: no Nausea/vomiting: no--NGT in place Urinary retention: No--lorenzo catheter BP 102/41 Pulse 84 Temp(Src) 36.8 ??C (Axillary) Resp 16 Ht 5' 4.5 (1.638 m) Wt 194 lb (87.998 kg) BMI 32.8 kg/m2 SpO2 99% Alert: yes Motor block: no Sensory block: yes Epidural site C/D/I: yes Infusing: yes LABS Lab Results Component Value Date/Time WBC 13.3* 12/05/2013 4:15 AM HEMOGLOBIN 10.9* 12/05/2013 4:15 AM HEMATOCRIT 33.6* 12/05/2013 4:15 AM PLATELETS 236 12/05/2013 4:15 AM Lab Results Component Value Date/Time INR 1.0 11/27/2013 3:00 PM PROTIME 13.5 11/27/2013 3:00 PM Continue epidural at 6 cc/hr Plan to discontinue epidural on POD 3- when pt is tolerating po and NGT out.. Maile West MD INSTRUCTOR * Ann Griggs MD - 12/05/2013 11:03 AM CST No issues o/n AVSS u/o adequate abd soft, nd Inc c/d/i Drains serosang hgb stable POD 1 OOICU to 4th floor surgery only, my service hospitalist c/s Cont drains/NGT/lorenzo/epidural Lorenzo needed 2/2 epidural Ayaka INSTRUCTOR * Ann Muhammad DO - 12/05/2013 7:52 AM CST [facility] Transfer Note 12/05/2013 7:52 AM Patient transferring to Medicine Physician /PA/ SENIOR TECH MANUFACTURING ENGINEERING Communication: Ann Muhammad DO to Physician Date/Time: 12/05/13 at 0810 Is the accepting physician aware that patient needs to be seen on day of transfer? yes (regarding patient's not seen by [facility] attending prior to transfer) Family Member Communication: Physician to patient; Relationship to patient: patient Transfer orders have been reviewed with the RN and the team caring for the patient: yes Any special needs for this patient? no If yes, describe: Attending Physician changed to accepting Hospitalist, if applicable: N/A INSTRUCTOR Ann Anaya DO - 12/05/2013 7:31 AM CST CRITICAL CARE MEDICINE DAILY PROGRESS NOTE ICU Timeline: Rebel Schultz is a 62 y.o. 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 This tumor had increased in size over the last 6 months, and at the time of the procedure measured 3cm. Surgery was chosen to prevent malignant transformationand ensure no present malignancy. Rebel arrives in the ICU extubated and alert, no pain when lyingstill in bed, and 5/10 pain when moving. She denies nausea, vomiting, chest pain, sob at this time.Denies paraesthesia or numbness ?? Assessment and Plan: Neuro/Psych: Pain control: Epidural in place, pain service to manage; morphine for breakthrough Cardiovascular/Fluids: MVP: stable Hyperlipidemia: trilipix po; will hold LR 150ml/hr Pulmonary: Room air- stable Mechanical Ventilation: N/A GI/NUT: S/P Whipple procedure for pancreatic head mucinous tumor; path pending Plan for transfer to medicine floor with hospitalist consult for diabetic management per Dr. Griggs GERD- Pepcid BID Diverticulosis- Stable NG tube in place NPO Renal/LYTES/Acid-Base: To follow CMP for lytes; stable at current time Infectious Disease: Clinda/Gent/flagyl for surgical prophylaxis Hem/Onc/Coag: Hgb stable 10.9; will follow and treat per ICU protocol if necessary Heparin 5000 q12 hrs and SCDs for DVT prophy Endocrine: Diabetes Mellitus: Recent BS 146, stable; accucheck q 4, Novolog LDSSI for management Musculoskeletal/Skin: Arthritis- stable Trauma: N/a Subjective: 24 hour events- admitted to ICU s/p uncomplicated Whipple procedure, hgb stable (10.9); LDSSI Objective: Current vital signs Blood pressure 93/49, pulse 84, temperature 98.9 ??F (37.2 ??C), temperature source Axillary, resp.rate 15, height 5' 4.5 (1.638 m), weight 194 lb (87.998 kg), SpO2 98.00%. 24 hour BP and temperature range BP: (93-143)/(41-85) Temp (24hrs), Av.1 ??F (36.7 ??C), Min:96.8 ??F (36 ??C), Max:99.1 ??F (37.3 ??C) Input/Output 12/04 0700 - 12/05 0659 In: 6019.8 [I.V.:5917.5] Out: 1700 [Urine:1200; Drains:200] Physical Exam Gen: Alert, oriented x3; Pleasant. Cooperative. Neuro: Follows all commands as directed. CN II-XII intact. No neuro deficits noted. HEENT: + PERRLA. EOMI. Oropharynx clear, no oral lesions noted. Neck supple. Trachea midline. Cardiac: S1, S2 normal. Normal rate, regular rhythm. Systolic flow murmur noted; No rubs, clicks orgallops appreciated. Pulm: Lungs CTA in all lobes. Resp deep, even and unlabored. Good yesenia air entry with symmetrical chest wall movement. Abdomen: Bandage in place, C/D/I, two RYDER drains intact and draining; Round, soft, Appropriately tender, distension+ No masses or organomegaly. No bowel sounds. Skin: cool, normal cap refill Extremities: Peripheral pulses 2+ with no edema noted. Data Review: BMP: Recent Labs 12/05/13 0415 GLUCOSE 156* BUN 22* CREAT 0.87 NA 141 K 4.0 CL 104 CO2 29 estimated creatinine clearance is 73.6 ml/min (based on Cr of 0.87). LFTs: Recent Labs 12/05/13 0415 ALKPHOS 37 ALT 130* AST 118* BILITOTAL 0.4 ALBUMIN 3.5 CBC: Recent Labs 12/05/13 0415 WBC 13.3* HGB 10.9* HCT 33.6* PLT 236 MCV 93.3 Coagulation: No results found for this basename: PT, INR, APTT, in the last 72 hours ABG: No results found for this basename: PHARTERIAL, SEE0HWD, PO2ART, ZWV1XBD, BASEEXCESS, SO2ABG, FOHBABG Central VBG: No results found for this basename: PHMIXEDVEN, MW7JQSQNEB, QFK3GECFFO, GJM6YIKDR, CL5HQHD Lactic acid: No results found for this basename: LACTATE Radiology: n/a INSTRUCTOR * Clara Diaz, [place] - 12/04/2013 2:00 PM CST Undress and Assess performed by: Clara Diaz RN & Celia Mcgrath RN does not have skin breakdown. Location of breakdown: Description of breakdown: Wound care consult was not initiated. INSTRUCTOR documented in this encounter H&P Notes * Jb Ann, DO - 12/04/2013 3:47 PM CST CRITICAL CARE MEDICINE HISTORY & PHYSICAL Reason for ICU admission: Whipple Surgery HPI: Rebel Schultz is a 62 y.o. female admitted 12/04/2013 after undergoing a whipple procedure this morning for a pancreatic head mucinous tumor. This tumor had increased in size over the last 6 months, and at the time of the procedure measured 3cm. Surgery was chosen to prevent malignant transformation and ensure no present malignancy. Rebel arrives in the ICU extubated and alert, no pain when lying still in bed, and 5/10 pain when moving. She denies nausea, vomiting, chest pain, sob at this time. Denies paraesthesia or numbness Past Medical History Diagnosis Date ??? Diabetes [...] right ??? Endoscopy, gi ??? Chg colonoscopy,diagnostic Family History Problem Relation Age of Onset ??? Healthy Father ??? Other Father blood poisoning ??? Lung Cancer Mother ??? Lung Cancer Maternal Grandfather ??? Cancer Maternal Aunt colon ??? Cancer Maternal Aunt leukemia ??? Lung Cancer Maternal Aunt No current facility-administered medications on file prior to encounter. Current Outpatient Prescriptions on File Prior to Encounter Medication Sig Dispense Refill ??? METFORMIN HCL (METFORMIN ORAL) Take 500 mg by mouth Daily LATE. ??? FENOFIBRIC ACID, CHOLINE, (TRILIPIX ORAL) Take 135 mg by mouth daily. ??? Omeprazole Magnesium (PRILOSEC) 2.5 mg Oral SuDR Take by mouth daily. ??? CALCIUM CARB/VIT D2/MINERALS (CALTRATE PLUS ORAL) Take by mouth daily. ??? MULTIVITAMIN ORAL Take by mouth daily. ??? METHYLCELLULOSE (CITRUCEL ORAL) Take by mouth daily. ??? ACETAMINOPHEN (TYLENOL ORAL) Take by mouth. Prn headache ??? dexamethasone (DECADRON) 1 mg Oral Tab Take 1 mg by mouth daily. ??? POTASSIUM ORAL Take by mouth daily. ??? B.ANI/L.ACI/L.YONATAN/L.PLAN/L.GUERA (PROBIOTIC FORMULA ORAL) Take by mouth daily. Allergies Allergen Reactions ??? Adhesive Other (See Comments) Blisters ??? Codeine Other (See Comments) Respiratory arrest ??? Nickel Other (See Comments) Sores ??? Penicillins Anaphylaxis Respiratory distress ??? Sulfa (Sulfonamide Antibiotics) Hives Internal and external hives History Social History ??? Marital Status: Spouse Name: N/A Number of Children: N/A ??? Years of Education: N/A Occupational History ??? Social History Main Topics ??? Smoking status: Never Smoker ??? Smokeless tobacco: Not on file ??? Alcohol Use: No ??? Drug Use: No ??? Sexually Active: Not on file Other Topics Concern ??? Not on file Social History Narrative ??? No narrative on file Review of Systems CONSTITUTIONAL: Denies: fever, chills, diaphoresis, weakness, fatigue, weight loss, and weight gain. ALLERGIES: Denies: urticaria, hay fever, and angioedema. EYES: denies blurry vision, scotoma ENT: Denies: sore throat, nasal congestion, nasal discharge, epistaxis, tinnitus, and hearing loss. CARDIOVASCULAR: Denies: chest pain, dyspnea on exertion, orthopnea, paroxysmal nocturnal dyspnea, edema, and palpitations. RESPIRATORY: Denies: cough, hemoptysis, shortness of breath, pleuritic chest pain, and wheezing. ENDOCRINE: Denies: polydipsia/polyuria, palpitations, skin changes, temperature intolerance, and unexpected weight changes. HEME-LYMPH: Denies: swollen lymph nodes, bleeding, and bruising. GI: appropriate abd pain; Denies: flank pain, nausea, vomiting, diarrhea, constipation, black stool, and blood in stool. : Denies: dysuria, frequency/urgency, and hematuria. NEURO: Denies: dizzy/vertigo, headache, focal weakness, numbness/tingling, speech problems, loss ofconsciousness, confusion, and memory loss. MUSCULOSKELETAL: Denies: back pain, joint pain, joint stiffness, joint swelling, muscle pain, and muscle weakness. SKIN: Denies: rash, itching, and hives. PSYCH: Denies: anxiety and depression. Objective: Current vital signs Blood pressure 111/51, pulse 84, temperature 96.8 ??F (36 ??C), temperature source Axillary, resp. rate 13, height 5' 4.5 (1.638 m), weight 194 lb (87.998 kg), SpO2 95.00%. 24 hour BP and temperature range BP: (100-143)/(45-85) Temp (24hrs), Av.9 ??F (36.6 ??C), Min:96.8 ??F (36 ??C), Max:98.7 ??F (37.1 ??C) Input/Output 12/03 1500 - 12/04 1459 In: 3505 [I.V.:3500] Out: 605 [Urine:225; Drains:80] Physical Exam Gen: Alert, oriented x3; Pleasant. Cooperative. Neuro: Follows all commands as directed. CN II-XII intact. No neuro deficits noted. HEENT: + PERRLA. EOMI. Oropharynx clear, no oral lesions noted. Neck supple. Trachea midline. Cardiac: S1, S2 normal. Normal rate, regular rhythm. Systolic flow murmur noted; No rubs, clicks orgallops appreciated. Pulm: Lungs CTA in all lobes. Resp deep, even and unlabored. Good yesenia air entry with symmetrical chest wall movement. Abdomen: Bandage in place, C/D/I, two RYDER drains intact and draining; Round, soft, Appropriately tender, distension+ No masses or organomegaly. No bowel sounds. Skin: cool, normal cap refill Extremities: Peripheral pulses 2+ with no edema noted. Data Review: BMP:No results found for this basename: GLUCOSE, BUN, CREAT, NA, K, CL, CO2, ANIONGAP, CAIONIZED, MG, PO4, in the last 72 hours estimated creatinine clearance is 84.3 ml/min (based on Cr of 0.76). LFTs:No results found for this basename: ALKPHOS, ALT, AST, BILITOTAL, ALBUMIN, AMYLASE, LIPASE, inthe last 72 hours CBC: No results found for this basename: WBC, HGB, HCT, PLT, MCV, in the last 72 hours Coagulation: No results found for this basename: PT, INR, APTT, in the last 72 hours ABG: No results found for this basename: PHARTERIAL, QMW0DSM, PO2ART, NTZ4NPS, BASEEXCESS, SO2ABG, FOHBABG Central VBG: No results found for this basename: PHMIXEDVEN, [id number], [id number], [id number], OM4VHLM Lactic acid: No results found for this basename: LACTATE Radiology: n/a Assessment and Plan: Neuro/Psych: ?? Pain control: Epidural in place, pain service to manage; morphine for breakthrough Cardiovascular/Fluids: ?? MVP: stable ?? Hyperlipidemia: trilipix po; will hold ?? LR 150ml/hr Pulmonary: ?? Room air- stable ?? Mechanical Ventilation: N/A GI/NUT: ?? 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 GERD- Pepcid BID ?? Diverticulosis- Stable ?? NG tube in place Renal/LYTES/Acid-Base: ?? To follow CMP for lytes; stable at current time Infectious Disease: ?? Clinda/Gent/flagyl for surgical prophylaxis Hem/Onc/Coag: ?? CBC stable 12.9; will follow and treat per ICU protocol if necessary ?? Heparin 5000 q12 hrs and SCDs for DVT prophy Endocrine: ?? Diabetes Mellitus: Recent BS 146, stable; accucheck q 4, Novolog MDSSI for management Musculoskeletal/Skin: ?? Arthritis- stable Trauma: ?? N/a Discussed above with Fellow, who is in agreement INSTRUCTOR * Ann Griggs MD - 12/04/2013 6:40 AM CST Subjective: 62-year-old female who follows up with me for a pancreatic head mucinous tumor. She recently had a repeat endoscopic ultrasound which demonstrated that there still is a mucinous component to the cyst. She has intermittent right upper quadrant pain and a loose bowel movements. She has no nausea or vomiting. The pain as a dull constant ache which is not made better by positional changes. Patient Active Problem List Diagnosis Date Noted ??? Pancreas cyst 04/13/2013 Overview Note: Multiple cysts/mucinous neoplasm of the pancreatic head less than 2 cm being observed with serial endoscopic ultrasound Past Medical History Diagnosis Date ??? Diabetes mellitus ??? Gastrointestinal disorder diverticulitis ??? Heart disease, unspecified MVP ??? Arthritis Past Surgical History Procedure Laterality Date ??? Hx eye surgery age 5 cross eyed/glaucoma ??? Hx appendectomy ??? Hx section 1972 1976 ??? Hx sinus surgery ??? Hx foot surgery Bilateral four different surgeries ??? Hx tonsillectomy age 6 ??? Hx knee replacment Right ??? Hx cyst removal Left index and pointer finger (Not in a hospital admission) Allergies Allergen Reactions ??? Adhesive Other (See Comments) Blisters ??? Codeine Other (See Comments) Respiratory arrest ??? Nickel Other (See Comments) Sores ??? Penicillins Anaphylaxis Respiratory distress ??? Sulfa (Sulfonamide Antibiotics) Hives Internal and external hives History Substance Use Topics ??? Smoking status: Never Smoker ??? Smokeless tobacco: Not on file ??? Alcohol Use: Not on file Family History Problem Relation Age of Onset [...] major depressive episodes requiring hospitalization Objective: BP 144/81 Pulse 105 Resp 20 Ht 5' 5 (1.651 m) Wt 189 lb (85.73 kg) BMI 31.45 kg/m2 General: Alert, cooperative, no distress, appears [...] strength, sensation and reflexes throughout. DATA REVIEW MRI from an outside facility was review by myself which demonstrates a 3 cm collection of mucinous cyst in the pancreatic head with no invasion of the superior mesenteric or portal vein Assessment: 62-year-old female with a persistent pancreatic head mucinous tumor which has increased in size over the past 6 months Plan: I discussed the mucinous cyst at length with the patient and her (45 minutes) and given thesize being over 3 cm at this point she would be a candidate for surgery. Surgery would be gained atpreventing malignant transformation of the mass and further establishing that there is no malignancy present at this time. I explained to the patient that the longer she has a cyst there is a chance that it could turn into malignancy and that adenocarcinoma as of the pancreas regardless of the timeof diagnosis carry a dismal prognosis. Patient would not like to worry about the mass and even withresection of the mass being a large procedure she is going to undergo this now rather than wait forher help to deteriorate and possibly the mass enlarging in the future. Resection of the mass/cyst/tumors would entail a pancreaticoduodenectomy or Whipple procedure. I outlined the anatomy of the right upper quadrant and the close proximity of structures such as the pancreatic head/duodenum/bile duct. Surgical extirpation of masses in these regions requires an en bloc removal of the structures along with a cholecystectomy if it has not been performed already. I outlined the reconstruction necessary to provide continuity of the alimentary tract with anastomosis from the intestine to the pancreas, bile duct, and stomach. The risks of a Whipple procedure were explained in great detail which carry a 1-2% mortality and 20-30% morbidity with a hospital stay anywhere between one to 2 weeks. We talked about perioperative complications such as bleeding, infection, anastomotic leak, delayed gastric emptying, and injury to adjacent structures, and systemic complications such as DVT/pneumonia/myocardial infarction/pulmonary embolus. Postoperative recovery out of the hospital explained in this would last several weeks to months which in detail eating small frequent meals instead of 3 large meals and possible intermittent nausea and vomiting. We went over the lack of effective systemic therapies for malignancies in this region such as chemotherapy and/or radiation but the possibility of adjuvant therapy was discussed. We also talked about the prognosis for malignancies in this region. Patient verbalized their understanding of the procedure and is willing to proceed. INSTRUCTOR documented in this encounter Consult Notes * Saima Tian RN - 2013 4:42 PM CSTAssociated Order(s): IP CONSULT TO IV TEAM IV CONSULT: Request for IV consult. Reviewed electronic record and completed a vascular assessment. PIV [facility]and documented in [facility]. PIV is appropriate at this time. Bed in low position,HOB up 35 degrees,?? side rails up X2. Safety check completed. RN notified. ?? INSTRUCTOR * Jillian Gonzalez MD - 12/05/2013 12:23 PM CSTAssociated Order(s): IP CONSULT TO INTERNAL MEDICINE [facility] Hospitalist Consultation Consult requested by Ann Humphreys MD Patient Name: Rebel Schultz Primary Care Physician: Jareth Lopez MD Date of admission: 12/04/2013 Date of Service: 12/05/2013 Impression: ?? Active Problems: ?? Pancreas cyst: Multiple cysts/mucinous neoplasm of the pancreatic head 3 cm, s/p whipple's, mnmgper primary team ? Hypertension- holding home triamterene/HCTZ, kcl supplement, BP actually low, cont on fluids ?? Diabetes mellitus- cont on LD SSI, home meds on hold, now NPO with NGT to suction. Monitor for hypoglycemia ?? GERD (gastroesophageal reflux disease)- cont on iv H2 melvin ?? Hyperlipidemia- on triplix at home, resume when taking po ?? Elevated transaminases- likely due to surgery, monitor, CMP in am On prophy heparin per primary team Aury present Full code Plan d/w pt and her family at bedside Reason for consultation: mnmg of HTN,DM,HLD,GERD HPI: Patient is a 62 y.o. female who was admitted on 12/04/2013 for elective surgery of a pancreatic cyst, she underwent whipple's, was sent to ICU post op for observation, she was extubated before going to the unit, transferred out this am and hospitalists consulted for med mnmg She denies any CAD or CVD, denies any cp,sob, abd pain now controlled Past Medical History: Past Medical History Diagnosis Date ??? Diabetes mellitus ??? Gastrointestinal disorder diverticulitis ??? Heart disease, unspecified MVP ??? Arthritis ??? GERD (gastroesophageal reflux disease) patient denies ??? Hyperlipidemia ??? Diverticulitis Past Surgical History: Past Surgical History Procedure Laterality Date ??? [...] WHIPPLE performed by Ann Griggs MD at [facility] Current Medications: Current Facility-Administered Medications Medication Dose Route Frequency Provider Last Rate Last Dose ??? insulin aspart (NOVOLOG) 100 unit/mL variable dose subCUT PC TID Ann Muhammad DO ??? diphenhydrAMINE (BENADRYL) injection 12.5 mg 12.5 mg IV q 6 hour PRN Maile West MD 12.5 mg at 12/05/13 0411 ??? nalBUPHine (NUBAIN) injection 3 mg 3 mg IV q 3 hour PRN Maile West MD ??? nalOXone (NARCAN) 0.4 mg/mL injection 0.4 mg 0.4 mg IV q 5 min PRN Maile West MD ??? bupivacaine PF 0.1 %, morphine PF 0.1 mg/mL in sodium chloride 0.9% 383.3 mL EPIDURAL Epidural Continuous Maile West MD 5 mL/hr at 12/04/13 1400 ??? morphine injection 2 mg 2 mg IV q 3 hour PRN Maile West MD ??? nalOXone (NARCAN) 0.4 mg/mL injection 0.1 mg 0.1 mg IV See Admin Notes Ann Griggs MD ??? lactated ringers solution IV Continuous Ann Griggs MD 110 mL/hr at 12/05/13 1105 ??? alvimopan (ENTEREG) capsule 12 mg 12 mg Oral BID Ann Griggs MD 12 mg at 12/05/13 0858 ??? metoclopramide HCl (REGLAN) injection 10 mg 10 mg IV q 6 hour PRN Ann Griggs MD ??? ondansetron (ZOFRAN) 4 mg/2 mL injection 4 mg 4 mg IV q 6 hour PRN Ann Griggs MD ??? [COMPLETED] metroNIDAZOLE (FLAGYL) IVPB 500 mg 500 mg IV q 8 hour Ann Griggs MD 500 mg at 12/04/13 2217 And ??? [COMPLETED] gentamicin (GARAMYCIN) 100 mg in sodium chloride 0.9% 100 mL traditional dose IVPB 100 mg IV q 8 hour Ann Griggs MD 100 mg at 12/04/13 2321 ??? famotidine PF (PEPCID) 20 mg/2 mL injection 20 mg 20 mg IV BID Ayaka, Ann L, MD 20 mg at 12/05/13 0904 ??? dextrose 50% (D50) syringe 25 Gram 25 Gram IV See Admin Notes Ann Griggs MD ??? glucagon (Human Recombinant) (GLUCAGEN) 1 mg/mL injection 1 mg 1 mg IM See Admin Notes Ann Griggs MD ??? heparin injection 5,000 Units 5,000 Units subCUT q 12 hour (BID) Ann Griggs MD 5,000 Units at 12/05/13 0502 ??? [DISCONTINUED] lactated ringers solution IV Pre-Proc Continuous Lisandro Rose MD ??? [DISCONTINUED] lidocaine 2 % (XYLOCAINE) injection 0.3 mL 0.3 mL Infiltration Pre-Proc Once Lisandro Rose MD ??? [DISCONTINUED] ondansetron (ZOFRAN) 4 mg/2 mL injection 4 mg 4 mg IV q 6 hour PRN Maile West MD ??? [DISCONTINUED] fentaNYL PF (SUBLIMAZE) 50 mcg/mL injection 25 mcg 25 mcg IV Post-Proc q 3 min PRN Jamar Arora MD 25 mcg at 12/04/13 1223 ??? [DISCONTINUED] diphenhydrAMINE (BENADRYL) injection 12.5 mg 12.5 mg IV Post- Proc q 6 hours PRN Jamar Arora MD ??? [DISCONTINUED] diphenhydrAMINE (BENADRYL) injection 25 mg 25 mg IV Post-Proc Once PRN Jamar Arora MD ??? [DISCONTINUED] heparin injection 5,000 Units 5,000 Units subCUT See Admin Notes Ann Griggs MD ??? [DISCONTINUED] insulin aspart (NOVOLOG) 100 unit/mL variable dose subCUT TID Meals Ann Griggs MD ??? [DISCONTINUED] insulin aspart (NOVOLOG) 100 unit/mL variable dose subCUT Daily BEDTIME Ann Griggs MD ??? [DISCONTINUED] insulin aspart (NOVOLOG) 100 unit/mL variable dose subCUT q 4 hour Ann Muhammad DO 3 Units at 12/05/13 0409 Medication Allergies: Allergies Allergen Reactions ??? Adhesive Other (See Comments) Blisters ??? Codeine Other (See Comments) Respiratory arrest ??? Nickel Other (See Comments) Sores ??? Penicillins Anaphylaxis Respiratory distress ??? Sulfa (Sulfonamide Antibiotics) Hives Internal and external hives Family History: Family History Problem Relation Age of Onset ??? Healthy Father ??? Other Father blood poisoning ??? Lung Cancer Mother ??? Lung Cancer Maternal Grandfather ??? Cancer Maternal Aunt colon ??? Cancer Maternal Aunt leukemia ??? Lung Cancer Maternal Aunt Social History: History Substance Use Topics ??? Smoking status: Never Smoker ??? Smokeless tobacco: Not on file ??? Alcohol Use: No Review of Systems:as per hpi GEN: Has had weight loss, now tired Skin: No rashes or eruptions HEENT: no sinus complaints Lungs: No cough, shortness of breath, or wheezing Cardiac: No CP, SOB, History of OR or angina GI: abd pain controlled : No dysuria Musculoskeletal: No back pain, neck pain or joint pain or swelling NEURO: no prior cva or seizure All other ROS reviewed and are negative Physical Exam: Patient Vitals for the past 8 hrs: BP Temp Temp src Pulse Resp SpO2 12/05/13 1111 96/49 mmHg 97.3 ??F (36.3 ??C) Axillary 93 16 96 % 12/05/13 1035 - - - - 16 99 % 12/05/13 1030 102/41 mmHg - - - 17 99 % 12/05/13 1009 - - - - 13 98 % 12/05/13 1000 89/47 mmHg - - - 22 99 % 12/05/13 0900 91/37 mmHg - - - 14 98 % 12/05/13 0800 97/42 mmHg 98.3 ??F (36.8 ??C) Axillary - 16 99 % 12/05/13 0700 104/49 mmHg - - - 12 98 % 12/05/13 0600 93/49 mmHg - - - 15 98 % 12/05/13 0500 96/41 mmHg - - - 12 96 % Intake/Output Summary (Last 24 hours) at 12/05/13 1223 Last data filed at 12/05/13 1134 Gross per 24 hour Intake 3179.84 ml Output 1520 ml Net 1659.84 ml General: Alert, cooperative, no distress,ill appearing, appears stated age. Head: Normocephalic, without obvious abnormality, atraumatic. Eyes: Conjunctivae/corneas clear. PERRL, EOMs intact. Throat: Lips, mucosa, and tongue dry Neck: Supple, s Back: Epidural analgesia- noted. Lungs: Clear to auscultation bilaterally. Heart: Regular rate and rhythm, S1, S2 normal, no murmur, click, rub or gallop. Abdomen: abd binder on, 2 surgical drains with serosanguinous drainage noted, BS- not heard Extremities: Extremities normal, atraumatic, no cyanosis or edema. Pulses: 2+ and symmetric all extremities. Skin: No rashes or lesions. Lymph nodes: Cervical, supraclavicular nodes normal. Neurologic: CNII-XII intact. Normal strength, sensation and reflexes , no gross deficits. DATA BASE: Data Review: CBC: Lab Results Component Value Date/Time WBC 13.3* 12/05/2013 4:15 AM RBC 3.60* 12/05/2013 4:15 AM HGB 10.9* 12/05/2013 4:15 AM HCT 33.6* 12/05/2013 4:15 AM PLT 236 12/05/2013 4:15 AM BMP: Lab Results Component Value Date/Time GLUCOSE 156* 12/05/2013 4:15 AM NA 141 12/05/2013 4:15 AM K 4.0 12/05/2013 4:15 AM CL 104 12/05/2013 4:15 AM CO2 29 12/05/2013 4:15 AM BUN 22* 12/05/2013 4:15 AM CREAT 0.87 12/05/2013 4:15 AM CA 8.4* 12/05/2013 4:15 AM Coagulation: Lab Results Component Value Date/Time PT 13.5 11/27/2013 3:00 PM INR 1.0 11/27/2013 3:00 PM Thank you for consulting [facility] for this interesting case. I have taken the liberty of writing orders consistent with my recommendations. We will gladly follow the patient throughout their stay. Jillian Gonzalez MD INSTRUCTOR documented in this encounter OR Notes * Operative Report - Ayaka, Ann Wells MD - 12/22/2013 7:01 PM CDT [place], [place] [address] Operative Report CSN: [id number] DATE OF SERVICE: 12/04/2013 SURGEON Ann Griggs M.D. PREOPERATIVE DIAGNOSIS Pancreatic mucinous cystic neoplasm. POSTOPERATIVE DIAGNOSIS Pancreatic mucinous cystic neoplasm. OPERATION NAME Whipple procedure. ANESTHESIA General. ESTIMATED BLOOD LOSS 200 mL. OPERATIVE FINDINGS 1. Localized mass of the pancreatic head adjacent to the portal vein in the superior aspect of the uncinate process. 2. Hand-sewn, well-vascularized, end-to-side Blumgart-style pancreaticojejunostomy. 3. Very small 3-mm bile duct, which was reapproximated to the intestinal tract with a tension-free,well-vascularized, end-to-side hepaticojejunostomy. 4. Retrocolic, hand-sewn, well-vascularized, tension-free, end-to-side gastrojejunostomy. DESCRIPTION OF PROCEDURE The patient was identified in the preoperative area and brought to the operating room where she underwent general anesthesia, was then prepped and draped in usual sterile fashion over the abdominal cavity. Preoperative antibiotics were already given and pneumatic compression boots on for DVT prophylaxis. A transverse separate style incision was made, carried down throughout the subcutaneous tissues onto the midline fascia, which was elevated and entered sharply into the peritoneal cavity. The incision was then lengthened both to the left and right through the rectus muscle, anterior rectus sheath and posterior rectus sheath without injuring adjacent organs. I palpated the abdominal cavity. There were no signs of carcinomatosis. The omentum was then lifted off the transverse colon and the lesser sac was entered. Dissection then proceeded off of the anterior aspect of the pancreas, the posterior aspect of the stomach from the pancreas. I then dissected out laterally, ligated the right gastroepiploic arcade as it went down to right half of the transverse colon and then mobilized the hepatic flexure with the LigaSure. This closed the C-sweep of the duodenum. I then dissected medially onto the gastroepiploic vein on the right and followed this up to the superior mesenteric vein. Plane was entered of the superior mesenteric vein and the pancreatic neck and there was a clean plane underneath this. I then mobilized the duodenum by performing a wide Iván maneuver to evaluate and see the left renal vein. I then was able to dissect the gallbladder off of the liver in a dome down fashion, and given the fact this was a tumor in the uncinate process, I did not feel like I had to do a high portal dissection, so I stayed inferior to the edges of the cystic duct onto the bile duct and subsequently identified the cystic artery and cystic duct and clipped and transected these. I then the lymphadenopathy from the lateral aspect of the portal vein and the lateral aspect of the bile duct. I then dissected out the lesser omentum and divided the hepatogastric ligament. The right gastric artery and vein were then individually identified and ligated with HarmonicScalpel. Dissection proceeded on the lateral aspect of the hepatic artery in order to identify the 3 and 6 o'clock arteries of the bile duct, which were subsequently transected with a Harmonic scalpel. The bile duct and transected and a bulldog clamp was placed on the proximal aspect and a pursestri ng 2-0 silk suture was then used to close off the distal aspect of the bile duct. I then dissected on the anterior aspect of the portal vein to identify the gastroduodenal artery and duodenum vein and they were subsequently individually ligated with interrupted 3-0 silk ties and transected. There were two 3-0 silk ties left on the gastroduodenal artery stump. The next step in the procedure was then to dissect some lymphadenopathy off of the hepatic artery in order to free up the pancreas even further. A vessel loop was then placed around the pancreatic neck. The stomach was then transected atits junction between the antrum and body with a ALEXIS 80-mm green stapler and the lesser and greater o mentums were then transected with the LigaSure. I then was able to dissect below the transverse colon and repositioned the retractors in order to elevate up the jejunum, which was divided with a ALEXIS 80 mm blue stapler and the distal aspect was oversewn with a pursestring 3-0 silk suture. The mesentery and ligament of Treitz were then taken with a Harmonic scalpel and this was able to then free up into the right upper quadrant without injuring the inferior mesenteric vein. Once into the right upper quadrant, retractors were then repositioned and I placed pursestring sutures at the 4 corners ofthe pancreatic neck and transected the pancreatic neck with a #10 blade scalpel, and 2 of the subsequent pancreatic arteries were then cauterized. This was a 3 mm pancreatic duct and I was able to divide the superior and inferior pancreaticoduodenal veins with the Harmonic scalpel and this was a good plane as there was no evidence of any malignant tumor inferiorly, so I started inferiorly and took the uncinate process with the LigaSure and this was able to then come superiorly staying lateral to the superior mesenteric artery, and the uncinate process was then transected with the LigaSure inferiorly and I dissected superiorly the uncinate process off the portal vein, ligating the superior and inferior pancreaticoduodenal arteries with the Harmonic scalpel. The next step in the procedure was then to pass a specimen off the field. The mass was seen to be in the superior aspect of the uncinate process. Reconstruction then proceeded with a pancreaticojejunostomy as the jejunum was brought up through the ligament of Treitz, and an end-to-side tension-free, well vascularized Blumgart-style pancreaticojejunostomy was created with 5 interrupted 3-0 Maxon sutures placed full-thickness through the pancreas in order to take the posterior wall of the jejunum. A ductal mucosa pancreaticojejunostomy was completed with 9 interrupted 5-0 PDS sutures over a #5 pediatric feeding tube. The anterior aspect of the jejunum was then reapproximated to the pancreas with the 3-0 Maxon sutures. The next step in the procedure was then to remove the bulldog clamp and the bile duct was very small in nature being approximately 3 mm and a jejunotomy was created and an end-to-side hepaticojejunostomy was created with interrupted 5-0 PDS sutures with the posterior row having knots on the inside and the anterior row having knots on the outside. It was a tension-free, well-vascularized anastomosis, and the next step in the procedure was then to tack down the jejunum to the Mary's capsule of the liver to alleviate any tension on the anastomosis. Distal to the ligament of Treitz, approximately 20to 30 cm, I was able to satisfactorily piece the jejunum for a gastrojejunostomy and the transversemesocolon was then incised and the jejunum brought through this in a retrocolic fashion. The stapleline of the stomach was then oversewn with a running 3-0 Maxon suture in the superior half. The staple line in the inferior half was then excised and the next step in the procedure was then to excisethe staple line of the stomach and create a longitudinal jejunotomy and an end-to-side gastrojejunostomy was completed with interrupted 3-0 silk sutures with full-thickness bites with the posterior row having knots on the inside and the anterior row having knots on the outside. There was a good palpable lumen at this point, and there was no tension on the anastomosis. Sutures were placed at the angle of sorrow in order to alleviate any leakage at the corners of the anastomosis. At this point,sponge and needle counts were correct. The #19 Fernando drains were brought out on the right side of the abdomen posterior to the hepaticojejunostomy and pancreaticojejunostomy and anterior to the hepati cojejunostomy. At this point, the drains were secured with 2-0 silk suture and closure followed. Posterior rectus sheath was closed with running #0 Vicryl suture. The anterior rectus sheath was closed with running #0 looped Maxon suture and this closed the midline fascia as well. Skin was reapproximated with interrupted 3-0 Vicryl sutures and niya and the patient was brought to recovery room in stable condition. RLN:MEDQ DID: [id number] Dictated by: Ann Griggs M.D. * Operative Report - Ann Griggs MD - 12/20/2013 11:13 AM CDT [place], [place] [address] Operative Report CSN: [id number] DATE OF SERVICE: 12/04/2013 SURGEON Ann Griggs M.D. PREOPERATIVE DIAGNOSIS Pancreatic mucinous cystic neoplasm. POSTOPERATIVE DIAGNOSIS Pancreatic mucinous cystic neoplasm. OPERATION NAME Whipple procedure. ANESTHESIA General. EBL 200 mL. OPERATIVE FINDINGS 1. Localized mass of the uncinate process of the pancreas, just lateral and posterior to the portalvein. 2. Blumgart style pancreaticojejunostomy for reconstruction. 3. End-to-side tension-free well-vascularized hepaticojejunostomy with a 2 mm bile duct. DESCRIPTION OF PROCEDURE The patient was identified in the preoperative area and brought to the operating room where she underwent general endotracheal anesthesia. She was then prepped and draped in the usual sterile fashionover the abdominal cavity with preoperative antibiotics already given. Pneumatic compression boots on for DVT prophylaxis. Upper transverse incision was made on the abdomen, dissected down throughoutthe subcutaneous tissue through the anterior and posterior rectus sheath, dividing the rectus muscle. Posterior sheath was elevated and entered sharply to prevent injury to the underlying organs. Once in the abdominal cavity, I palpated the peritoneum. There were no signs of carcinomatosis. The omentum was raised and incised off of the transverse colon gaining entrance into the lesser sac and exposing the pancreas. I then dissected laterally and ligated the attachments from the hepatic flexure to the right retroperitoneum with the LigaSure device. The white line of Toldt on the right side wasthen divided with the LigaSure and this allowed the transverse colon and right colon to be reflected inferiorly. A wide Iván maneuver was then performed to expose the left renal vein. The middle colic vein was identified and traced superiorly to the superior mesenteric vein and a plane was created posterior to the neck of the pancreas, and this was clear. At this point, I then started my portal dissection by incising the gallbladder and taking it down in a dome down fashion down to the cysticduct. Cystic duct was clipped and transected. I then dissected the hepatic artery proper medial in the hepatoduodenal ligament and stayed lateral to this and ligated both the 3 and 6 o'clock arteriesof the bile duct. Subsequently, the portal vein was identified lateral and lymph nodes lateral to the portal vein were cleared off with a Harmonic Scalpel. The bile duct was subsequently isolated andclamped off proximally with a bulldog clamp. The distal half was then transected with cautery better exposing the anterior aspect of the portal vein. The right gastric artery and vein were then identi fied and ligated with interrupted 3-0 silk ties and continued to dissect on the hepatic artery to identify the gastroduodenal artery and vein. The gastroduodenal artery was then ligated with interrupted 3-0 silk ties x3 and transected with a 15 blade scalpel leaving a good cuff of gastroduodenal artery, ligated with two 3-0 silk ties. I then dissected down onto the gastroduodenal vein, which was ligated with interrupted 3-0 silk ties and transected with a Harmonic Scalpel. Dissection then proceeded on the anterior aspect of the portal vein and connected the dissection along the inferior aspect of the pancreatic neck, and a Vesseloop was then used to isolate this. The stomach was then identified and the lesser and greater omentum was taken with a LigaSure and subsequently the stomach was stapled at the juncture between the body and antrum with a ALEXIS 80 mm green stapler x2. I then was able to over sew the superior half of the staple line with a running 3-0 Maxon suture in a seromuscular fashion. I then flipped the transverse colon superiorly and identified the ligament of Treitz, and 20 cm distal to this, the jejunum was transected with a ALEXIS 80 mm blue stapler and the next step of the procedure was then to over sew the distal staple line with a pursestring 3-0 silk suture. I then ligated attachments to the ligament of Treitz, and the jejunal mesentery with a combination of LigaSure and Harmonic Scalpel in order to flip the jejunum up into the right upper quadrant. Transversecolon was then retracted inferiorly and I was then able to reflect the uncinate process of the pancreas off of the superior mesenteric vein and ligated the inferior pancreaticoduodenal vein with interrupted 3-0 silk ties and transected this. I then ligated the branch of the right gastroepiploic vein with interrupted 3-0 silk ties and transected this. The pancreatic neck was then isolated and repair for transection with interrupted 3-0 silk sutures placed in 4 quadrants. Subsequently, the pancreas was transected with a 15 blade scalpel and the pancreatic duct was seen. At this point, the pancreatic parenchyma was cauterized the bleeding points and the anterior aspect of the portal vein was exposed. Superior pancreaticoduodenal artery and vein were then isolated from the uncinate process right on the portal vein and superior mesenteric artery with hemostats and 3-0 silk suture ligatures. I then continued to dissect the mucinous neoplasm away from the portal vein. This was a clean plane off of the superior mesenteric artery, and subsequently this inferior pancreaticoduodenal artery wasidentified in the uncinate process and transected with a Harmonic scalpel. There was no evidence ofbleeding. At this point, I then continued to dissect the rest of the retroperitoneal attachments ofthe uncinate process and specimen was freed. At this point, there was no gross evidence of uncinateprocess left behind and there was good palpation of pulse to the superior mesenteric artery. Superior mesenteric vein and portal vein were not narrowed and I then proceeded with reconstruction. The jejunum was then brought up through ligament of Treitz and a Blumgart style pancreaticojejunostomy was performed with interrupted 3-0 Maxon sutures x5, placed through the pancreas, and the posterior bite of the jejunum was performed and brought out through the pancreas on the anterior aspect again. Ductal mucosa pancreaticojejunostomy was then performed over a #5 pediatric feeding tube with 8 interrupted 5-0 PDS sutures with the knots on the outside except for the posterior knot tying down the inside, which was used to tack down the stent, which was placed through the mucosa of the jejunum intothe duct of the pancreas. At this point, once the mucosal to duct anastomosis was complete, the anterior layer of the jejunum was brought over to the anterior aspect of the pancreas with a 3-0 Maxon and this completed my pancreaticojejunostomy. Bull dog clamp was then removed from the bile duct dania duct to mucosa well- vascularized tension-free hepaticojejunostomy was performed with interrupted 5-0 Maxon sutures for a total 8 sutures being placed with 4 sutures being placed in the posterior row and 4 sutures being placed on the anterior row with an anterior row having knots on the inside andthe posterior row having knots on the inside. Jejunum was then tacked up to the gallbladder fossa with interrupted 4- 0 PDS sutures to alleviate any tension on the anastomoses and subsequently the jejunum was brought up distal to the ligament of Treitz approximately 40 cm for a gastrojejunostomy. The staple line on the inferior aspect of the stomach was excised and the longitudinal jejunotomy was created and a hand-sewn well- vascularized tension-free anastomosis was completed with a single layer interrupted 3-0 silk sutures in order to restore intestinal continuity. There is good palpable lumen at the completion of this. There was a watertight closure of the anastomosis. At this point, 19 Fernando drains were brought out through 2 separate stab incisions to drain both the pancreatico and hepaticojejunostomy. The next step of the procedure was then to assure NG tube was in good position and subsequently the wound was closed in layers with a running #0 Vicryl suture used to close the posterior rectus sheath. The anterior rectus sheath and midline fascia were closed with a running #0 loop Maxon sutures x2. Skin was closed with niya. The patient was subsequently extubated and brought to recovery room in stable condition. RLN:MEDQ DID: [id number] Dictated by: Ann Griggs M.D. * OR Anesthesia - Jamar Syed MD - 12/08/2013 9:12 AM CST 12/08/2013 9:12 AM Acute Pain Service Name: Rebel Schultz Age: 63 y.o. Sex: female CSN: [id number] POD # 4 Epidural Infusing Pain scale at rest: 3/10 Pain scale with movement/cough: 4/10 Sedation: no Pruritis: no Nausea/vomiting: no Urinary retention: no BP 174/75 Pulse 84 Temp(Src) 37.2 ??C (Oral) Resp 16 Ht 5' 4.5 (1.638 m) Wt 195 lb (88.451 kg) BMI 32.97 kg/m2 SpO2 98% Alert: yes Motor block: no . Epidural site C/D/I: yes LABS Lab Results Component Value Date/Time WBC 14.8* 12/07/2013 6:12 AM HEMOGLOBIN 11.0* 12/07/2013 6:12 AM HEMATOCRIT 34.4* 12/07/2013 6:12 AM PLATELETS 241 12/07/2013 6:12 AM Lab Results Component Value Date/Time INR 1.0 11/27/2013 3:00 PM PROTIME 13.5 11/27/2013 3:00 PM Epidural discontinued - tip intact. No erythema or tenderness at site Epidural orders discontinued. The following pain medications were ordered: percocet Future pain management per surgeon. The Acute Pain Service may be contacted through [email or web address] phones [phone] and [phone] during daytime resourcehours, or pager [phone] at any time. If there is no answer within 20 minutes, call [phone] for the Anesthesiologist educational guidance counselor. Jamar Syed MD INSTRUCTOR * OR Anesthesia - Joe Sanchez PA - 12/07/2013 8:01 AM CST Rebel Schultz POD # 3 Epidural Infusing at 5 cc/hr Pain scale at rest: 4/10 Pain scale with movement/cough: 6/10 The patient states she is having some pain in the back where the epidural is. This is new and she feels this more than the surgical pain. Sedation: no Pruritis: yes; mild controlled with Benadryl Nausea/vomiting: no, has NGT Urinary retention: no, has lorenzo Filed Vitals: 12/07/13 1746 12/07/13 2120 12/07/13 2326 12/08/13 0358 BP: 166/73 181/73 175/68 167/71 Pulse: 90 90 84 Temp: 36.4 ??C 36.9 ??C 37 ??C TempSrc: Oral Oral Oral Resp: 20 18 18 Height: Weight: SpO2: 97% 98% 97% Alert: yes Motor block: no Epidural site C/D/I: Yes There is no erythema, or warmth around the epidural site. There is no drainage from the site. (it is easily visualized because of Tegaderm over it) There is some palpable tenderness over the insertion site and about a half dollar size area surrounding it. There is No spinal tenderness or any other area of the back that is tender. IV Morphine helps with the pain. Infusing: yes Results for orders placed during the hospital encounter of 12/04/13 (from the past 24 hour(s)) POC GLUCOSE Result Value Range POC GLUCOSE 142 (*) 65 - 99 mg/dL CLIA LICENSE [id number] POC GLUCOSE Result Value Range POC GLUCOSE 154 (*) 65 - 99 mg/dL CLIA LICENSE [id number] POC GLUCOSE Result Value Range POC GLUCOSE 155 (*) 65 - 99 mg/dL CLIA LICENSE [id number] POC GLUCOSE Result Value Range POC GLUCOSE 137 (*) 65 - 99 mg/dL CLIA LICENSE [id number] Continue epidural at 5 cc/hr Discussed the epidural tenderness with Attending MD Dr. Syed. Recommendation to continue to monitor, continue IV Morphine for breakthrough. I notified the RN caring for the patient Re: the concerns and recommendations. Plan to discontinue epidural tomorrow, sooner if any further issues with the epidural. CHUCK Perez * OR Anesthesia - Jamar Syed MD - 12/06/2013 8:32 AM CST 12/06/2013 8:32 AM Acute Pain Service Name: Rebel Schultz Age: 62 y.o. Sex: female CSN: [id number] POD # 2 Epidural Infusing at 5 cc/hr Pain scale at rest: 3/10 Pain scale with movement/cough: 5/10 Sedation: no Pruritis: yes; receiving Benadryl- discussed if itching is worse than pain epidural rate can be decreased. Pt states she does not wish for it to be turned down, as she is going to be up walking in the halls today and wants to see how she feels then. States itching is not bad enough to decrease epidural presently Nausea/vomiting: no, NGT in place Urinary retention: no, lorenzo catheter BP 114/56 Pulse 99 Temp(Src) 36.7 ??C (Oral) Resp 14 Ht 5' 4.5 (1.638 m) Wt 195 lb (88.451 kg) BMI 32.97 kg/m2 SpO2 95% Alert: yes Motor block: no Sensory block: no as noted by tess. Epidural site C/D/I: yes Infusing: yes LABS Lab Results Component Value Date/Time WBC 12.9* 12/06/2013 5:25 AM HEMOGLOBIN 10.1* 12/06/2013 5:25 AM HEMATOCRIT 32.7* 12/06/2013 5:25 AM PLATELETS 203 12/06/2013 5:25 AM Lab Results Component Value Date/Time INR 1.0 11/27/2013 3:00 PM PROTIME 13.5 11/27/2013 3:00 PM Continue epidural at 5 cc/hr Plan to discontinue epidural tomorrow, or after NGT is out and tolerating PO. Celia Diaz, FILLER AND TRIMMER Although patient is having some itching, but is happy with taking the benadryl. She is alert and with good pain control. Will leave epidural at current rate INSTRUCTOR * Anesthesia Handoff - Bria Jacobson CRNA - 12/04/2013 11:51 AM CST Post-Anesthetic transfer of care report elements to appropriate post-anesthesia recovery environment completed in accordance with procedure. Vital Signs: BP: 100/45 mmHg (12/04/2013 11:45 AM) Pulse: 84 (12/04/2013 6:21 AM) Heart Rate (Monitored): 95 bpm (12/04/2013 11:45 AM) Temp: 37 ??C (12/04/2013 11:45 AM) Resp: 16 (12/04/2013 11:45 AM) SpO2: 98 % (12/04/2013 11:45 AM) 11:51 AM Bria Jacobson CRNA INSTRUCTOR * OR Anesthesia - Maile West MD - 12/04/2013 7:35 AM CST Epidural Procedure Note 12/04/2013 7:35 AM I have discussed with the patient, and/or surrogate, the placement of an epidural catheter and/or the use of epidural narcotics/local anesthetic for postoperative pain management, including potentialrisks, benefits, complications and side effects. I have also discussed alternative methods of postoperative analgesia. The patient, and/or surrogate, understands and wishes to proceed with the epidural narcotic/local anesthetic for postoperative analgesia. A pre-procedural time-out was completed immediately before starting the procedure and confirmed thecorrect: Paitent, site, procedure, patient position and immediate availablity of correct implants and any speical equipment or requirements. Patient Position: sitting on the right, paramedian Monitors: Pulse oximetry: Yes NIBP: Yes ECG: No Sedation: Versed: Yes, total: 4 mg IV Fentanyl: No, total: 0 mcg IV Skin Prep: Betadine:No Chlorhexidine: Yes Sterile Drapes: Yes Needle: 18 ga Tuohy-Schliff: Yes Catheter: 20 ga catheter: Yes Technique: Loss of Resistance: Yes Level of Insertion: T8-9 Catheter at Skin: 13 cm Amount of catheter in epidural space: 6 cm Local Anesthetic Agents: Skin Anesthesia: 1% lidocaine 3 ml Test Dose Injectate: 1.5% Lidocaine with 1:200,000 Epi 3 ml given @ 700 Test dose response negative for intravascular or intrathecal injection: Yes Observations: Monitored vital signs remained stable throughout the procedure: Yes Blood: no CSF: no Pain: no Paresthesia: no Resistance: no Complications: None. Recommended initial epidural bolus dose: Duramorph 3 mg +fentanyl 100 mcg and Bupivacaine 0.25% with epinephrine 5 mL as BP tolerates. Maile West MD INSTRUCTOR documented in this encounter Miscellaneous Notes * Query - TannerShannon Russell - 12/12/2013 7:20 AM CDT Please respond within 48 hours. Thank you! The authenticated query note is part of the Legal Health Record Patient Name: Rebel Schultz Admission Date: 12/04/2013 [facility] #: [id number] Dear Doctor, Note: To answer the following question(s), please click F2 in front of the highlighted area(s). 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 - PANCREATIC INTRAEPITHELIAL NEOPLASIA, GRADE 2. - LYMPH NODES, NEGATIVE FOR MALIGNANCY (0/16, N0). - DUODENUM, WITH PYLORIC GLAND ADENOMA, WITH LOW-GRADE DYSPLASIA. - ALL MARGINS OF RESECTION ARE NEGATIVE FOR MALIGNANCY. GALLBLADDER, CHOLECYSTECTOMY: - CHRONIC CHOLECYSTITIS, WITH MILD ACTIVE INFLAMMATION. - CHOLESTEROLOSIS. OMENTUM, EXCISION: - NEGATIVE FOR MALIGNANCY. per pathology report: 1) Concur with insert finding(s) 2) Other (Please Specify) 3) Incidental finding without clinical relevance 4) Unable to determine Answered in Dr Griggs's 12/12 progress note In responding to this query, please exercise your independent professional judgment. Please be advised that coding regulations for inpatient admissions allow the physician to document presumptive/possible diagnoses. The fact that a question is asked does not imply that any particular answer is desired or expected. Thank you, This query was initiated by Shannon. For questions on this coding query please contact me at [email or web address] or [phone] * Care Plan - Clara Doty RN - 12/10/2013 4:40 AM CDT Problem: General Plan of Care (Adult, Obstetrics) Goal: Individualization/Patient-Specific Goal (Adult, Obstetrics) The patient and/or their community health program representative will achieve their patient-specific goals related to the plan of care. The patient-specific goals include: Rebel will have pain controlled with po medication and be free from s/s of infection. Outcome: Progressing Rebel rested well overnight. She is tolerating percocet for pain control. She continues having a lot of gas pains, zofran given for upset stomach. No other issues overnight. She is anticipating discharge home today. Fall Interventions provided throughout shift: yellow signs on door, bracelet intact, Non-skid yellow socks on, bed/chair alarms activated, gait belt available in room, SRx3, staff assist when out of bed, and Preventing Falls education handout reviewed. Call light within reach. * Care Plan - Jennifer Cowan RN - 2013 3:42 PM CST Problem: General Plan of Care (Adult, Obstetrics) Goal: Individualization/Patient-Specific Goal (Adult, Obstetrics) The patient and/or their community health program representative will achieve their patient-specific goals related to the plan of care. The patient-specific goals include: Rebel will have pain controlled with po medication and be free from s/s of infection. Outcome: Progressing Pt has done well today. Pt is voiding without difficulty and had a couple of soft bms. Dr. Griggs removed her RYDER's early this morning. Pt showered. Placed ABD pads over incision and changed dressing toold RYDER site. Binder remains in place. Pt ambulating the halls and moves around frequently in the room. Pt was advanced to a soft diet. Pt is tolerating it well, but states she got full easily. Monitoring her blood sugar and treating accordingly, however pt didn't want any insulin with the lunch dose because she didn't want to eat. Pt did drink a Glucerna. Pt's IV infiltrated. Will start a new IV since the hospitalist ordered IV Potassium for a level of 2.8. Pt was informed of possible dc tomorrow. Pt has been free of falls. Pt is aware and agrees with POC. Problem: Fall/Trauma/Injury Risk (Adult) Goal: Fall/Trauma/Injury Risk: Absence of Trauma/Injury/Falls Patient will demonstrate the desired outcomes. Outcome: Progressing Fall Interventions provided throughout shift: yellow signs on door, bracelet intact, Non-skid yellow socks on, bed/chair alarms activated, gait belt available in room, SRx3, staff assist when out of bed, and Preventing Falls education handout reviewed. Problem: Pain, Acute (Adult) Intervention: Acute Pain: Related Risk Factors Pt has only requested pain medication once and she took Percocet. INSTRUCTOR * Care Plan - Clara Doty RN - 2013 5:21 AM CST Problem: General Plan of Care (Adult, Obstetrics) Goal: Individualization/Patient-Specific Goal (Adult, Obstetrics) The patient and/or their community health program representative will achieve their patient-specific goals related to the plan of care. The patient-specific goals include: Rebel will have pain controlled with po medication and be free from s/s of infection. Outcome: Progressing Rebel rested well overnight. She is tolerating percocet for pain control. She is ambulating with SBA, voiding without difficulty. She did have a BM yesterday, entereg given per pt request. She is tolerating full liquid diet. She did complain this am of gas pain and unable to belch. Zofran given toprevent emesis. No other issues overnight. Call light within reach. INSTRUCTOR * Care Plan - Samantha Perez RN - 12/08/2013 4:07 PM CST Problem: General Plan of Care (Adult, Obstetrics) Goal: Plan of Care Review (Adult, Obstetrics) The patient and/or their community health program representative will communicate an understanding of their plan of care. Outcome: Progressing Rebel has c/o abdominal pain today, managed well with epidural in the morning and PO Percocet thisafternoon. Epidural d/c'ed per anesthesia this morning, pt tolerated well. Abdominal incision c/d, niya intact, no drainage, binder on. RYDER drains have small amount of serosanguinous ouput. VS stable, afebrile. Lorenzo removed 6 hours after epidural d/c'ed, pt has voided without difficulty since removal. Bowel sounds present, passing flatus, had BM that sank today. Tolerating full liquid diet, denies n/v. Ambulation promoted, pt walked halls today. POC discussed with pt and she is agreeable. Pt resting quietly in chair with call light in reach. Will continue to monitor. Problem: Fall/Trauma/Injury Risk (Adult) Goal: Fall/Trauma/Injury Risk: Absence of Trauma/Injury/Falls Patient will demonstrate the desired outcomes. Outcome: Progressing Pt has remained free from falls this shift. Fall precautions followed: BA utilized, sign on door, stand-by assist when ambulating. INSTRUCTOR * Care Plan - Carolyn Lei, VALENICA - 12/08/2013 10:30 AM CST Nutrition diet screen: Rebel Schultz is a 63 y.o. female admitted for Active Problems: Pancreas cyst Overview: Multiple cysts/mucinous neoplasm of the pancreatic head less than 2 cm being observed with serial endoscopic ultrasound Hypertension Diabetes mellitus GERD (gastroesophageal reflux disease) Hyperlipidemia Elevated LFTs Electrolyte imbalance PMH: diabetes, diverticulitis, GERD, HLD Labs: K+ 3.4, gluc 156, gluc POC 137, alb 3.3, AST 58, ALT 74 Meds: Pepcid, Novolog, reglan, maxzide Serafin:17 Skin:inc bilateral abd Ht: 5'4.5 Wt: 195 lbs Diet: full liq PO intake: 90% x1 LBM 3/ Pt states she needs sugar free liquids since she is diabetic. States she drinks Glucerna once/day at home. Appetite fair. Plan: Send Glucerna at lunch As diet advances will add diabetic restriction Continue to monitor po intake, wts, labs, skin and f/u q4days/prn INSTRUCTOR * Care Plan - Roddy Marley RN - 12/08/2013 5:49 AM CST Problem: General Plan of Care (Adult, Obstetrics) Goal: Individualization/Patient-Specific Goal (Adult, Obstetrics) The patient and/or their community health program representative will achieve their patient-specific goals related to the plan of care. The patient-specific goals include: Rebel will have pain controlled with po medication and be free from s/s of infection. Outcome: Progressing Rebel has been tolerating a clear liquid diet and has denied feelings of nausea throughout the night. Her pain has been well controled with her epidural. Has been sleeping between care throughout the night. She is currently resting in bed with call light and personal items within reach. Problem: Fall/Trauma/Injury Risk (Adult) Goal: Fall/Trauma/Injury Risk: Absence of Trauma/Injury/Falls Patient will demonstrate the desired outcomes. Outcome: Progressing Fall Interventions provided throughout shift: yellow signs on door, bracelet intact, Non-skid yellow socks on, bed/chair alarms activated, gait belt available in room, SRx3, staff assist when out of bed, and Preventing Falls education handout reviewed. INSTRUCTOR * Care Plan - Brea Galan RN - 12/07/2013 5:49 PM CST Problem: General Plan of Care (Adult, Obstetrics) Goal: Individualization/Patient-Specific Goal (Adult, Obstetrics) The patient and/or their community health program representative will achieve their patient-specific goals related to the plan of care. The patient-specific goals include: Rebel will have pain controlled with po medication and be free from s/s of infection. Rebel has maintained fall precautions by utilizing staff for standby assistance. Pt continues epidural, which adequately controls pain. NG tube dc'd today, pt tolerated well, diet advanced to clear liquids per MD communication order, pt is tolerating well and remains free of N/V. +BS and pt had 1 BM today. Dressings to abd are c/d/i, niya also intact and well approximated. at bedside throughout day. Pt remains in good spirits. Will continue to monitor. INSTRUCTOR * Care Plan - Roddy Marley RN - 12/07/2013 8:15 AM CST Problem: General Plan of Care (Adult, Obstetrics) Goal: Individualization/Patient-Specific Goal (Adult, Obstetrics) The patient and/or their community health program representative will achieve their patient-specific goals related to the plan of care. The patient-specific goals include: Rebel will have pain controlled with po medication and be free from s/s of infection. Outcome: Progressing Rebel's pain has been well controled with her epidural. NG was at low intermittent suction throughout the night. This A.M. Clamp trial started. Slept between care throughout the night. Call light and personal items within reach. INSTRUCTOR * Care Plan - Brea Galan RN - 12/06/2013 5:55 PM CST Problem: General Plan of Care (Adult, Obstetrics) Goal: Individualization/Patient-Specific Goal (Adult, Obstetrics) The patient and/or their community health program representative will achieve their patient-specific goals related to the plan of care. The patient-specific goals include: Rebel will have pain controlled with po medication and be free from s/s of infection. Rebel has maintained fall precautions by calling staff to assist with ambulation. Pt has denied pain throughout day, epidural adequate for pain management. Abd dressing changed per MD, sutures in place and are c/d/i. VSS. NG tube to low, intermittent suction has green output. IVF continue to infuse. Pt appears in good spirits today and has increased ambulation. Will continue to monitor. INSTRUCTOR * Care Plan - Anupam Marley RN - 12/06/2013 8:19 AM CST Problem: General Plan of Care (Adult, Obstetrics) Goal: Identify Discharge Needs Patients discharge needs are identified. Outcome: Progressing Initial Discharge Planning Assessment completed in the Discharge Planning Doc Flowsheet. Introductory Care Management letter given. Care Management reviewed patient's chart, visited with patient, and discussed Care Management role and discharge planning. Patient admitted through same day surgery. Patient s/p [facility] 12/04/13. Prior to admission, patient's functional level was independent. PCP verified as Dr. Lopez. Discussed discharge goals and possible discharge needs. Post hospital disposition is likely home. No discharge needs were identified at this time. Care Management contact information provided. Care Management will continue to follow and assist asneeded. Anupam Marley [employer] SAL[employer] REPRESENTATIVE Care Management [id number] INSTRUCTOR * Care Plan - Kay Hollingsworth RN - 12/06/2013 6:11 AM CST Problem: General Plan of Care (Adult, Obstetrics) Goal: Individualization/Patient-Specific Goal (Adult, Obstetrics) The patient and/or their community health program representative will achieve their patient-specific goals related to the plan of care. The patient-specific goals include: Rebel will have pain controlled with po medication and be free from s/s of infection. Outcome: Progressing Rebel rested well in between care and denied pain due to her epidural, she complained of generalized itching, benadryl was given patient stated some relief. NG to low-int w/Q4hr flushes and clear green output, epidural dressing w/dried drainage, catheter to bedside drainage with clear dinorah output, RYDER's w/ moderate amounts of serosanguinous output, bowels are hypoactive, per patient she is passing gas but no BM, on 2L of O2, small temp of 99.6 but went back down, ACCU checks Q 6 hr but no coverage needed, fall precautions maintained, personal belongings and call light within reach, patient is anxious to get up later this AM and walk. INSTRUCTOR * Care Plan - Yi Mckee RN - 12/05/2013 4:36 PM CST Problem: General Plan of Care (Adult, Obstetrics) Goal: Individualization/Patient-Specific Goal (Adult, Obstetrics) The patient and/or their community health program representative will achieve their patient-specific goals related to the plan of care. The patient-specific goals include: Rebel will have pain controlled with po medication and be free from s/s of infection. Outcome: Progressing Rebel has been resting comfortably since arriving to room 441. Abdominal dressings are c/d/i with binder in place. JPs draining a serosanguinous liquid. Denies flatus. BS hypoactive. NG @ LIWS with a thin green output. Remains NPO with ice chips. Epidural running at 5cc/hr; dried drainage noted todressing. She has been up to the chair with a x 1 assist and did well. VSS. On 2LO2 NC. Independently using her incentive spirometer. Will continue to monitor. Problem: Fall/Trauma/Injury Risk (Adult) Goal: Fall/Trauma/Injury Risk: Absence of Trauma/Injury/Falls Patient will demonstrate the desired outcomes. Outcome: Progressing Fall Interventions provided throughout shift: yellow signs on door, bracelet intact, Non-skid yellow socks on, bed/chair alarms activated, gait belt available in room, SRx3, staff assist when out of bed, and Preventing Falls education handout reviewed. INSTRUCTOR * Care Plan - Federico Byrd RN - 12/05/2013 1:53 PM CST Pt. Arrived to room 662 from 490 stable and un changed. Per Dr. Griggs's note pt. Trans. To room 44, report called to Adrian STALLWORTH. INSTRUCTOR * Care Plan - Sidney Tatum RN - 12/05/2013 4:58 AM CST Problem: Fall/Trauma/Injury Risk (Adult) Goal: Fall/Trauma/Injury Risk: Absence of Trauma/Injury/Falls Patient will demonstrate the desired outcomes. Outcome: Progressing Fall precautions maintained. Bed alarm on. Problem: Pain, Acute (Adult) Goal: Acute Pain: Acceptable Pain Control/Comfort Level Patient will demonstrate the desired outcomes. Outcome: Progressing Pain is managed through pt's epidermal. Pt states that pain is easily tolerable rating it a 5/10. Pt moving independently in bed without grimacing or statements of pain. Problem: Infection, Risk/Actual (Adult) Goal: Infection, Risk/Actual: Infection Prevention/Resolution/Control Patient will demonstrate the desired outcomes. Outcome: Progressing Monitoring I&O's and lab values. Monitoring temps. INSTRUCTOR * Care Plan - Clara Diaz RN - 12/04/2013 7:11 PM CST Problem: Fall/Trauma/Injury Risk (Adult) Goal: Fall/Trauma/Injury Risk: Absence of Trauma/Injury/Falls Patient will demonstrate the desired outcomes. Outcome: Progressing No fall or injury during this shift. Safety measures taken. Bed low and locked, side rails up x 3, call light in reach. Problem: Pain, Acute (Adult) Goal: Acute Pain: Acceptable Pain Control/Comfort Level Patient will demonstrate the desired outcomes. Outcome: Progressing Pt pain controlled with Epidural per DEC. Pt drowsy but awakens to voice. INSTRUCTOR * Care Plan - Nevaeh Bazzi RN - 12/04/2013 6:33 AM CST Knowledge deficit related to procedure/environment Interventions: Assess learning needs and willingness to learn; give clear, concise explanations of the environment and sequence of events surrounding the periop experience; address patient/family questions and concerns; provide teaching as indicated, provide teaching related to postoperative pain assessment utilizing pain scales Expected Outcome: Patient verbalizes or demonstrates awareness/understanding of surgery and perioperative experience Outcome Met: Pt/family understands instructions INSTRUCTOR documented in this encounter Plan of Treatment Not on file documented as of this encounter Procedures Procedure Name Priority Date/Time Associated Diagnosis Comments TELEMETRY REPORT 12/19/2013 5:32 PM CDT POC GLUCOSE Routine 12/10/2013 8:34 AM CDT BASIC METABOLIC PANEL Routine 12/10/2013 4:50 AM CDT POC GLUCOSE Routine 2013 8:50 PM PCAT INSTRUCTOR POC GLUCOSE Routine 2013 5:08 PM PCAT INSTRUCTOR POC GLUCOSE Routine 2013 2:04 PM PCAT INSTRUCTOR POC GLUCOSE Routine 2013 9:37 AM PCAT INSTRUCTOR CBC WITH DIFFERENTIAL Routine 2013 4:37 AM PCAT INSTRUCTOR BASIC METABOLIC PANEL Routine 2013 4:37 AM PCAT INSTRUCTOR POC GLUCOSE Routine 12/08/2013 9:18 PM PCAT INSTRUCTOR POC GLUCOSE Routine 12/08/2013 5:51 PM PCAT INSTRUCTOR POC GLUCOSE Routine 12/08/2013 1:43 PM PCAT INSTRUCTOR CBC WITH DIFFERENTIAL Routine 12/08/2013 11:20 AM PCAT INSTRUCTOR POC GLUCOSE Routine 12/08/2013 5:29 AM PCAT INSTRUCTOR POC GLUCOSE Routine 12/07/2013 11:24 PM PCAT INSTRUCTOR POC GLUCOSE Routine 12/07/2013 5:52 PM PCAT INSTRUCTOR POC GLUCOSE Routine 12/07/2013 12:44 PM PCAT INSTRUCTOR CBC WITH DIFFERENTIAL Routine 12/07/2013 6:12 AM PCAT INSTRUCTOR COMPREHENSIVE METABOLIC PANEL Routine 12/07/2013 6:12 AM PCAT INSTRUCTOR POC GLUCOSE Routine 12/07/2013 5:44 AM PCAT INSTRUCTOR POC GLUCOSE Routine 12/07/2013 12:50 AM PCAT INSTRUCTOR POC GLUCOSE Routine 12/06/2013 6:47 PM PCAT INSTRUCTOR POC GLUCOSE Routine 12/06/2013 12:12 PM PCAT INSTRUCTOR CBC WITH DIFFERENTIAL Routine 12/06/2013 5:25 AM PCAT INSTRUCTOR COMPREHENSIVE METABOLIC PANEL Routine 12/06/2013 5:25 AM PCAT INSTRUCTOR POC GLUCOSE Routine 12/06/2013 5:11 AM PCAT INSTRUCTOR POC GLUCOSE Routine 12/05/2013 11:13 PM PCAT INSTRUCTOR POC GLUCOSE Routine 12/05/2013 5:09 PM PCAT INSTRUCTOR POC GLUCOSE Routine 12/05/2013 1:01 PM PCAT INSTRUCTOR POC GLUCOSE Routine 12/05/2013 9:10 AM PCAT INSTRUCTOR CBC WITH DIFFERENTIAL Routine 12/05/2013 4:15 AM PCAT INSTRUCTOR COMPREHENSIVE METABOLIC PANEL Routine 12/05/2013 4:15 AM PCAT INSTRUCTOR POC GLUCOSE Routine 12/05/2013 4:06 AM PCAT INSTRUCTOR POC GLUCOSE Routine 12/04/2013 11:16 PM PCAT INSTRUCTOR POC GLUCOSE Routine 12/04/2013 8:15 PM PCAT INSTRUCTOR POC GLUCOSE Routine 12/04/2013 5:57 PM PCAT INSTRUCTOR PATHOLOGY Routine 12/04/2013 12:33 PM PCAT INSTRUCTOR POC GLUCOSE Routine 12/04/2013 11:48 AM PCAT INSTRUCTOR POC GLUCOSE Routine 12/04/2013 7:11 AM PCAT INSTRUCTOR HILTONS 12/04/2013 6:55 AM PCAT INSTRUCTOR Case Notes JOSE RAFAEL, [phone] YULIANA Gibbs [id number] documented in this encounter Results * TELEMETRY REPORT (12/19/2013 5:32 PM CDT) Provider Scanning ECG ORDERABLES * (ABNORMAL) POC GLUCOSE (12/10/2013 8:34 AM CDT) GLUCOSE POC 171(H) 65 - 99 mg/dL INTERFACE SYSTEM CLIA LICENSE [id number] INTERF YANY SYSTEM Blood specimen (specimen) 12/10/2013 8:34 AM CDT 12/10/2013 8:34 AM CDT Ann Griggs MD POINT OF CARE TESTIN G INTERFACE SYSTEM Refer to clinic/hospital department * (ABNORMAL) BASIC METABOLIC PANEL (12/10/2013 4:50 AM CDT) SODIUM 138 135 - 145 mmol/L [facility] - [facility] POTASSIUM 3.7 3.5 - 4.9 mmol/L [facility] - [facility] CHLORIDE 100 96 - 108 mmol/L [facility] - [facility] CO2 28 22 - 30 mmol/L [facility] - [facility] CALCIUM 9.1 8.6 - 10.2 mg/dL [facility] BUN 11 6 - 20 mg/dL [facility] CREATININE 0.73 0.51 - 0.95 mg/dL [facility] GLUCOSE 149(H) 65 - 99 mg/dL [facility] GFR, >60 >=60 mL/min/1. 7 sq meter [facility] GFR >60 >=60 mL/min/1. 7 sq meter [facility] Comment: GFR is calculated using the IDMS-Traceable Modification of Diet in Renal Disease (MDRD) Study formula and is only valid for patients 18 years or older. Further interpretative information is available in the Laboratory Services Policy Manual on the [facility] at: [email or web address]/ Blood specimen (specimen) 12/10/2013 4:50 AM CDT 12/10/2013 5:45 AM CDT Jillian Gonzalez MD CHEMISTRY ORDERABLES [facility] CLIA# [id number] [address] [place], [place] [address] * (ABNORMAL) POC GLUCOSE (2013 8:50 PM PCAT INSTRUCTOR) GLUCOSE POC 161(H) 65 - 99 mg/dL INTERFACE SYSTEM CLIA LICENSE [id number] INTERF YANY SYSTEM Blood specimen (specimen) 2013 8:50 PM PCAT INSTRUCTOR 2013 8:50 PM PCAT INSTRUCTOR Ann Griggs MD POINT OF CARE TESTFREDI Carrasco Performing Organization Address City/[facility] Co de Phone Number INTERFACE SYSTEM Refer to clinic/hospital department * (ABNORMAL) POC GLUCOSE (2013 5:08 PM PCAT INSTRUCTOR) GLUCOSE POC 169(H) 65 - 99 mg/dL INTERFACE SYSTEM CLIA LICENSE [id number] INTERF YANY SYSTEM Blood specimen (specimen) 2013 5:08 PM PCAT INSTRUCTOR 2013 5:08 PM PCAT INSTRUCTOR Ann Griggs MD POINT OF CARE TESTFREDI Carrasco Performing Organization Address City/[facility]/ZIP Co de Phone Number INTERFACE SYSTEM Refer to clinic/hospital department * (ABNORMAL) POC GLUCOSE (2013 2:04 PM PCAT INSTRUCTOR) GLUCOSE POC 160(H) 65 - 99 mg/dL INTERFACE SYSTEM CLIA LICENSE [id number] INTERF YANY SYSTEM Blood specimen (specimen) 2013 2:04 PM PCAT INSTRUCTOR 2013 2:04 PM PCAT INSTRUCTOR Ann Griggs MD POINT OF CARE TESTFREDI Carrasco INTERFACE SYSTEM Refer to clinic/hospital department * (ABNORMAL) POC GLUCOSE (2013 9:37 AM PCAT INSTRUCTOR) GLUCOSE POC 144(H) 65 - 99 mg/dL INTERFACE SYSTEM CLIA LICENSE [id number] INTERF YANY SYSTEM Blood specimen (specimen) 2013 9:37 AM PCAT INSTRUCTOR 2013 9:37 AM PCAT INSTRUCTOR Ann Griggs MD POINT OF CARE TESTIN G INTERFACE SYSTEM Refer to clinic/hospital department * (ABNORMAL) CBC WITH DIFFERENTIAL (2013 4:37 AM PCAT INSTRUCTOR) Pathologist [facility] WBC 10.6(H) 4.0 - 9.8 K/uL [facility] - [facility] RBC 4.00 3.90 - 4.90 M/uL [facility] - [facility] HEMOGLOBIN 12.0 11.8 - 14.8 g/dL [facility] - [facility] HEMATOCRIT 35.9 35.5 - 44.0 % [facility] MCV 89.8 82.0 - 99.0 fL [facility] - [facility] MCH 30.0 27.2 - 32.6 pg [facility] MCHC 33.4 31.5 - 35.5 % [facility] - [facility] PLATELETS 347 140 - 350 K/uL [facility] - [facility] MPV 10.7 9.3 - 12.4 fL [facility] - [facility] RDW 13.1 11.5 - 14.5 % [facility] RDW-STDEV 42.6 37.1 - 48.7 fL [facility] - [facility] NEUTROPHILS 72(H) 45 - 70 % [facility] LYMPHOCYTES 13(L) 16 - 45 % [facility] MONOCYTES 11 3 - 13 % [facility] EOSINOPHILS 3 0 - 7 % [facility] BASOPHILS 0 0 - 2 % [facility] NEUTROPHIL ABSOLUTE 7.66(H) 1.90 - 7.00 K/uL [facility] LYMPHOCYTE ABSOLUTE 1.34 0.70 - 4.50 K/uL [facility] - . [facility] MONOCYTE ABSOLUTE 1.21 0.10 - 1.30 K/uL [facility] EOSINOPHIL ABSOLUTE 0.35 0.00 - 0.70 K/uL [facility] - [facility] BASOPHILS ABSOLUTE 0.01 0.00 - 0.20 K/uL [facility] Blood specimen (specimen) 2013 4:37 AM PCAT INSTRUCTOR 2013 5:34 AM PCAT INSTRUCTOR Ann Griggs MD HEMATOLOGY ORDERABLE S [facility] [id number] [address] [facility] [place] [address] * (ABNORMAL) BASIC METABOLIC PANEL (2013 4:37 AM PCAT INSTRUCTOR) SODIUM 140 135 - 145 mmol/L [facility] POTASSIUM 2.8(L) 3.5 - 4.9 mmol/L [facility] CHLORIDE 98 96 - 108 mmol/L [facility] CO2 26 22 - 30 mmol/L [facility] CALCIUM 9.4 8.6 - 10.2 mg/dL [facility] BUN 6 6 - 20 mg/dL [facility] CREATININE 0.72 0.51 - 0.95 mg/dL [facility] GLUCOSE 160(H) 65 - 99 mg/dL [facility] GFR, >60 >=60 mL/min/1. 7 sq meter [facility] GFR >60 >=60 mL/min/1. 7 sq meter [facility] Comment: GFR is calculated using the IDMS-Traceable Modification of Diet in Renal Disease (MDRD) Study formula and is only valid for patients 18 years or older. Further interpretative information is available in the Laboratory Services Policy Manual on the [facility] [place] [facility] at: [email or web address]/ Blood specimen (specimen) 2013 4:37 AM PCAT INSTRUCTOR 2013 5:32 AM PCAT INSTRUCTOR Jillian Gonzalez MD CHEMISTRY ORDERABLES [facility] CLIA# [id number] [address] [place] [address] * (ABNORMAL) POC GLUCOSE (12/08/2013 9:18 PM PCAT INSTRUCTOR) GLUCOSE POC 176(H) 65 - 99 mg/dL INTERFACE SYSTEM CLIA LICENSE [id number] INTERF YANY SYSTEM Blood specimen (specimen) 12/08/2013 9:18 PM PCAT INSTRUCTOR 12/08/2013 9:18 PM PCAT INSTRUCTOR Ann Griggs MD POINT OF CARE TESTIN G Performing Organization Address City/[facility]/ZIP Co de Phone Number INTERFACE SYSTEM Refer to clinic/hospital department * (ABNORMAL) POC GLUCOSE (12/08/2013 5:51 PM PCAT INSTRUCTOR) GLUCOSE POC 162(H) 65 - 99 mg/dL INTERFACE SYSTEM COMMENT, GLU POC Notified RN/MD INTERFACE SYSTEM CLIA LICENSE [id number] INTERF YANY SYSTEM Blood specimen (specimen) 12/08/2013 5:51 PM PCAT INSTRUCTOR 12/08/2013 5:51 PM PCAT INSTRUCTOR Ann Griggs MD POINT OF CARE TESTIN G INTERFACE SYSTEM Refer to clinic/hospital department * (ABNORMAL) POC GLUCOSE (12/08/2013 1:43 PM PCAT INSTRUCTOR) GLUCOSE POC 137(H) 65 - 99 mg/dL INTERFACE SYSTEM CLIA LICENSE [id number] INTERF YANY SYSTEM Blood specimen (specimen) 12/08/2013 1:43 PM PCAT INSTRUCTOR 12/08/2013 1:43 PM PCAT INSTRUCTOR Ann Griggs MD POINT OF CARE TESTIN G INTERFACE SYSTEM Refer to clinic/hospital department * (ABNORMAL) CBC WITH DIFFERENTIAL (12/08/2013 11:20 AM PCAT INSTRUCTOR) WBC 12.1(H) 4.0 - 9.8 K/uL [facility] RBC 3.98 3.90 - 4.90 M/uL [facility] HEMOGLOBIN 11.9 11.8 - 14.8 g/dL [facility] - [facility] HEMATOCRIT 36.0 35.5 - 44.0 % [facility] MCV 90.5 82.0 - 99.0 fL [facility] - [facility] MCH 29.9 27.2 - 32.6 pg [facility] MCHC 33.1 31.5 - 35.5 % [facility] - [facility] PLATELETS 303 140 - 350 K/uL [facility] MPV 10.6 9.3 - 12.4 fL [facility] - [facility] RDW 13.1 11.5 - 14.5 % [facility] - [facility] RDW-STDEV 42.8 37.1 - 48.7 fL [facility] NEUTROPHILS 79(H) 45 - 70 % [facility] LYMPHOCYTES 11(L) 16 - 45 % [facility] MONOCYTES 8 3 - 13 % [facility] EOSINOPHILS 1 0 - 7 % [facility] BASOPHILS 0 0 - 2 % [facility] NEUTROPHIL ABSOLUTE 9.64(H) 1.90 - 7.00 K/uL [facility] LYMPHOCYTE ABSOLUTE 1.32 0.70 - 4.50 K/uL [facility] MONOCYTE ABSOLUTE 1.03 0.10 - 1.30 K/uL [facility] EOSINOPHIL ABSOLUTE 0.13 0.00 - 0.70 K/uL [facility] BASOPHILS ABSOLUTE 0.01 0.00 - 0.20 K/uL [facility] Blood specimen (specimen) 12/08/2013 11:20 AM PCAT INSTRUCTOR 12/08/2013 11:25 AM PCAT INSTRUCTOR Ann Griggs MD HEMATOLOGY ORDERABLE S [facility] CLIA# [id number] [address] [place] [address] * (ABNORMAL) POC GLUCOSE (12/08/2013 5:29 AM PCAT INSTRUCTOR) GLUCOSE POC 137(H) 65 - 99 mg/dL INTERFACE SYSTEM CLIA LICENSE [id number] INTERF YANY SYSTEM Blood specimen (specimen) 12/08/2013 5:29 AM PCAT INSTRUCTOR 12/08/2013 5:29 AM PCAT INSTRUCTOR Ann Griggs MD POINT OF CARE TESTIN G Performing Organization Address [facility] Co de Phone Number INTERFACE SYSTEM Refer to clinic/hospital department * (ABNORMAL) POC GLUCOSE (12/07/2013 11:24 PM PCAT INSTRUCTOR) GLUCOSE POC 155(H) 65 - 99 mg/dL INTERFACE SYSTEM CLIA LICENSE [id number] INTERF YANY SYSTEM Blood specimen (specimen) 12/07/2013 11:24 PM PCAT INSTRUCTOR 12/07/2013 11:24 PM PCAT INSTRUCTOR Ann Griggs MD POINT OF CARE TESTIN G Performing Organization Address City/[facility]/ZIP Co de Phone Number INTERFACE SYSTEM Refer to clinic/hospital department * (ABNORMAL) POC GLUCOSE (12/07/2013 5:52 PM PCAT INSTRUCTOR) GLUCOSE POC 154(H) 65 - 99 mg/dL INTERFACE SYSTEM CLIA LICENSE [id number] INTERF YANY SYSTEM Blood specimen (specimen) 12/07/2013 5:52 PM PCAT INSTRUCTOR 12/07/2013 5:52 PM PCAT INSTRUCTOR Jillian Gonzalez MD POINT OF CARE TESTIN G INTERFACE SYSTEM Refer to clinic/hospital department * (ABNORMAL) POC GLUCOSE (12/07/2013 12:44 PM PCAT INSTRUCTOR) GLUCOSE POC 142(H) 65 - 99 mg/dL INTERFACE SYSTEM CLIA LICENSE [id number] INTERF YANY SYSTEM Blood specimen (specimen) 12/07/2013 12:44 PM PCAT INSTRUCTOR 12/07/2013 12:44 PM PCAT INSTRUCTOR Ann Griggs MD POINT OF CARE TESTFREDI Carrasco INTERFACE SYSTEM Refer to clinic/hospital department * (ABNORMAL) COMPREHENSIVE METABOLIC PANEL (12/07/2013 6:12 AM PCAT INSTRUCTOR) SODIUM 138 135 - 145 mmol/L [facility] POTASSIUM 3.4(L) 3.5 - 4.9 mmol/L [facility] CHLORIDE 99 96 - 108 mmol/L [facility] CO2 27 22 - 30 mmol/L [facility] CALCIUM 8.9 8.6 - 10.2 mg/dL [facility] BUN 9 6 - 20 mg/dL [facility] CREATININE 0.67 0.51 - 0.95 mg/dL [facility] GLUCOSE 156(H) 65 - 99 mg/dL [facility] TOTAL PROTEIN 6.5 6.3 - 8.6 g/dL [facility] ALBUMIN 3.3(L) 3.4 - 4.8 g/dL [facility] BILIRUBIN TOTAL 0.6 0.2 - 1.0 mg/dL [facility] ALKALINE PHOSPHATASE 51 35 - 104 U/L [facility] AST 58(H) 12 - 32 U/L [facility] ALT 74(H) 0 - 31 U/L [facility] GFR, >60 >=60 mL/min/1. 7 sq meter [facility] GFR >60 >=60 mL/min/1. 7 sq meter [facility] Comment: GFR is calculated using the IDMS-Traceable Modification of Diet in Renal Disease (MDRD) Study formula and is only valid for patients 18 years or older. Further interpretative information is available in the Laboratory Services Policy Manual on the [facility] at: [email or web address]/ Blood specimen (specimen) 12/07/2013 6:12 AM PCAT INSTRUCTOR 12/07/2013 6:39 AM PCAT INSTRUCTOR Jillian Gonzalez MD CHEMISTRY ORDERABLES [facility] CLIA# [id number] [address] [facility] [place] [address] * (ABNORMAL) CBC WITH DIFFERENTIAL (12/07/2013 6:12 AM PCAT INSTRUCTOR) WBC 14.8(H) 4.0 - 9.8 K/uL [facility] RBC 3.68(L) 3.90 - 4.90 M/uL [facility] HEMOGLOBIN 11.0(L) 11.8 - 14.8 g/dL [facility] HEMATOCRIT 34.4(L) 35.5 - 44.0 % [facility] MCV 93.5 82.0 - 99.0 fL [facility] MCH 29.9 27.2 - 32.6 pg [facility] MCHC 32.0 31.5 - 35.5 % [facility] PLATELETS 241 140 - 350 K/uL [facility] MPV 11.2 9.3 - 12.4 fL [facility] RDW 13.4 11.5 - 14.5 % [facility] RDW-STDEV 45.8 37.1 - 48.7 fL [facility] NEUTROPHILS 83(H) 45 - 70 % [facility] LYMPHOCYTES 9(L) 16 - 45 % [facility] MONOCYTES 8 3 - 13 % [facility] EOSINOPHILS 0 0 - 7 % [facility] BASOPHILS 0 0 - 2 % [facility] NEUTROPHIL ABSOLUTE 12.28(H) 1.90 - 7.00 K/uL [facility] LYMPHOCYTE ABSOLUTE 1.36 0.70 - 4.50 K/uL [facility] MONOCYTE ABSOLUTE 1.14 0.10 - 1.30 K/uL [facility] EOSINOPHIL ABSOLUTE 0.05 0.00 - 0.70 K/uL [facility] BASOPHILS ABSOLUTE 0.01 0.00 - 0.20 K/uL [facility] Blood specimen (specimen) 12/07/2013 6:12 AM PCAT INSTRUCTOR 12/07/2013 6:38 AM PCAT INSTRUCTOR Jillian Gonzalez MD HEMATOLOGY ORDERABLE S [facility] CLIA# [id number] [address] [place] [address] * (ABNORMAL) POC GLUCOSE (12/07/2013 5:44 AM PCAT INSTRUCTOR) GLUCOSE POC 148(H) 65 - 99 mg/dL INTERFACE SYSTEM CLIA LICENSE [id number] [facility] Blood specimen (specimen) 12/07/2013 5:44 AM PCAT INSTRUCTOR 12/07/2013 5:44 AM PCAT INSTRUCTOR Jillian Gonzalez MD POINT OF CARE TESTIN G INTERFACE SYSTEM Refer to clinic/hospital department * (ABNORMAL) POC GLUCOSE (12/07/2013 12:50 AM PCAT INSTRUCTOR) GLUCOSE POC 102(H) 65 - 99 mg/dL INTERFACE SYSTEM CLIA LICENSE [id number] [facility] Blood specimen (specimen) 12/07/2013 12:50 AM PCAT INSTRUCTOR 12/07/2013 12:50 AM PCAT INSTRUCTOR Ann Griggs MD POINT OF CARE TESTIN G INTERFACE SYSTEM Refer to clinic/hospital department * POC GLUCOSE (12/06/2013 6:47 PM PCAT INSTRUCTOR) GLUCOSE POC 78 65 - 99 mg/dL INTERFACE SYSTEM CLIA LICENSE [id number] [employer] SYSTEM Blood specimen (specimen) 12/06/2013 6:47 PM PCAT INSTRUCTOR 12/06/2013 6:47 PM PCAT INSTRUCTOR Ann Griggs MD POINT OF CARE TESTIN G INTERFACE SYSTEM Refer to clinic/hospital department * POC GLUCOSE (12/06/2013 12:12 PM PCAT INSTRUCTOR) GLUCOSE POC 87 65 - 99 mg/dL INTERFACE SYSTEM COMMENT, GLU POC Notified RN/MD INTERFACE SYSTEM CLIA LICENSE [id number] [employer] Blood specimen (specimen) 12/06/2013 12:12 PM PCAT INSTRUCTOR 12/06/2013 12:12 PM PCAT INSTRUCTOR Jillian Gonzalez MD POINT OF CARE TESTIN G Performing Organization Address City/[facility] Co de Phone Number INTERFACE SYSTEM Refer to clinic/hospital department * (ABNORMAL) COMPREHENSIVE METABOLIC PANEL (12/06/2013 5:25 AM PCAT INSTRUCTOR) SODIUM 141 135 - 145 mmol/L [facility] - [facility] POTASSIUM 3.3(L) 3.5 - 4.9 mmol/L [facility] - [facility] CHLORIDE 101 96 - 108 mmol/L [facility] CO2 32(H) 22 - 30 mmol/L [facility] CALCIUM 8.6 8.6 - 10.2 mg/dL [facility] - [facility] BUN 16 6 - 20 mg/dL [facility] CREATININE 0.86 0.51 - 0.95 mg/dL [facility] GLUCOSE 92 65 - 99 mg/dL [facility] TOTAL PROTEIN 5.6(L) 6.3 - 8.6 g/dL [facility] ALBUMIN 3.2(L) 3.4 - 4.8 g/dL [facility] BILIRUBIN TOTAL 0.4 0.2 - 1.0 mg/dL [facility] ALKALINE PHOSPHATASE 38 35 - 104 U/L [facility] AST 92(H) 12 - 32 U/L [facility] ALT 104(H) 0 - 31 U/L [facility] GFR, >60 >=60 mL/min/1. 7 sq meter [facility] GFR >60 >=60 mL/min/1. 7 sq meter [facility] Comment: GFR is calculated using the IDMS-Traceable Modification of Diet in Renal Disease (MDRD) Study formula and is only valid for patients 18 years or older. Further interpretative information is available in the Laboratory Services Policy Manual on the [facility] [place] [facility] at: [email or web address] center[facility]/ Blood specimen (specimen) 12/06/2013 5:25 AM PCAT INSTRUCTOR 12/06/2013 6:26 AM PCAT INSTRUCTOR Jillian Gonzalez MD CHEMISTRY ORDERABLES [id number] [address] [place] [address] * (ABNORMAL) CBC WITH DIFFERENTIAL (12/06/2013 5:25 AM PCAT INSTRUCTOR) WBC 12.9(H) 4.0 - 9.8 K/uL [facility] RBC 3.42(L) 3.90 - 4.90 M/uL [facility] HEMOGLOBIN 10.1(L) 11.8 - 14.8 g/dL [facility] HEMATOCRIT 32.7(L) 35.5 - 44.0 % [facility] MCV 95.6 82.0 - 99.0 fL [facility] MCH 29.5 27.2 - 32.6 pg [facility] MCHC 30.9(L) 31.5 - 35.5 % [facility] PLATELETS 203 140 - 350 K/uL [facility] MPV 11.1 9.3 - 12.4 OK [facility] RDW 14.0 11.5 - 14.5 % [facility] RDW-STDEV 48.4 37.1 - 48.7 OK [facility] NEUTROPHILS 80(H) 45 - 70 % [facility] LYMPHOCYTES 11(L) 16 - 45 % [facility] MONOCYTES 9 3 - 13 % [facility] EOSINOPHILS 0 0 - 7 % [facility] BASOPHILS 0 0 - 2 % [facility] NEUTROPHIL ABSOLUTE 10.28(H) 1.90 - 7.00 K/uL [facility] LYMPHOCYTE ABSOLUTE 1.44 0.70 - 4.50 K/uL [facility] MONOCYTE ABSOLUTE 1.17 0.10 - 1.30 K/uL [facility] EOSINOPHIL ABSOLUTE 0.02 0.00 - 0.70 K/uL [facility] BASOPHILS ABSOLUTE 0.01 0.00 - 0.20 K/uL [facility] Blood specimen (specimen) 12/06/2013 5:25 AM PCAT INSTRUCTOR 12/06/2013 6:26 AM PCAT INSTRUCTOR Jillian Gonzalez MD HEMATOLOGY ORDERABLE S [facility] - [facility] CLIA# [id number] [address] [place] [address] * POC GLUCOSE (12/06/2013 5:11 AM PCAT INSTRUCTOR) GLUCOSE POC 95 65 - 99 mg/dL INTERFACE SYSTEM CLIA LICENSE [id number] [facility] Blood specimen (specimen) 12/06/2013 5:11 AM PCAT INSTRUCTOR 12/06/2013 5:11 AM PCAT INSTRUCTOR Ann Griggs MD POINT OF CARE TESTIN G INTERFACE SYSTEM Refer to clinic/hospital department * (ABNORMAL) POC GLUCOSE (12/05/2013 11:13 PM PCAT INSTRUCTOR) GLUCOSE POC 107(H) 65 - 99 mg/dL INTERFACE SYSTEM CLIA LICENSE [id number] [facility] Blood specimen (specimen) 12/05/2013 11:13 PM PCAT INSTRUCTOR 12/05/2013 11:13 PM PCAT INSTRUCTOR Ann Griggs MD POINT OF CARE TESTIN G Performing Organization Address [facility] Co de Phone Number INTERFACE SYSTEM Refer to clinic/hospital department * (ABNORMAL) POC GLUCOSE (12/05/2013 5:09 PM PCAT INSTRUCTOR) GLUCOSE POC 125(H) 65 - 99 mg/dL INTERFACE SYSTEM CLIA LICENSE [id number] [facility] Blood specimen (specimen) 12/05/2013 5:09 PM PCAT INSTRUCTOR 12/05/2013 5:09 PM PCAT INSTRUCTOR Ann Griggs MD POINT OF CARE TESTIN G Performing Organization Address [facility] Co de Phone Number INTERFACE SYSTEM Refer to clinic/hospital department * (ABNORMAL) POC GLUCOSE (12/05/2013 1:01 PM PCAT INSTRUCTOR) GLUCOSE POC 115(H) 65 - 99 mg/dL INTERFACE SYSTEM CLIA LICENSE [id number] [facility] Blood specimen (specimen) 12/05/2013 1:01 PM PCAT INSTRUCTOR 12/05/2013 1:01 PM PCAT INSTRUCTOR Ann Griggs MD POINT OF CARE TESTFREDI G Performing Organization Address [facility] Co de Phone Number INTERFACE SYSTEM Refer to clinic/hospital department * (ABNORMAL) POC GLUCOSE (12/05/2013 9:10 AM PCAT INSTRUCTOR) GLUCOSE POC 140(H) 65 - 99 mg/dL INTERFACE SYSTEM CLIA LICENSE [id number] [facility] Blood specimen (specimen) 12/05/2013 9:10 AM PCAT INSTRUCTOR 12/05/2013 9:10 AM PCAT INSTRUCTOR Ann Griggs MD POINT OF CARE TESTIN Danilo INTERFACE SYSTEM Refer to clinic/hospital department * (ABNORMAL) COMPREHENSIVE METABOLIC PANEL (12/05/2013 4:15 AM PCAT INSTRUCTOR) SODIUM 141 135 - 145 mmol/L [facility] POTASSIUM 4.0 3.5 - 4.9 mmol/L [facility] CHLORIDE 104 96 - 108 mmol/L [facility] CO2 29 22 - 30 mmol/L [facility] CALCIUM 8.4(L) 8.6 - 10.2 mg/dL [facility] BUN 22(H) 6 - 20 mg/dL [facility] CREATININE 0.87 0.51 - 0.95 mg/dL [facility] GLUCOSE 156(H) 65 - 99 mg/dL [facility] TOTAL PROTEIN 5.7(L) 6.3 - 8.6 g/dL [facility] ALBUMIN 3.5 3.4 - 4.8 g/dL [facility] BILIRUBIN TOTAL 0.4 0.2 - 1.0 mg/dL [facility] ALKALINE PHOSPHATASE 37 35 - 104 U/L [facility] AST 118(H) 12 - 32 U/L [facility] ALT 130(H) 0 - 31 U/L [facility] GFR, >60 >=60 mL/min/1. 7 sq meter [facility] GFR >60 >=60 mL/min/1. 7 sq meter [facility] Comment: GFR is calculated using the IDMS-Traceable Modification of Diet in Renal Disease (MDRD) Study formula and is only valid for patients 18 years or older. Further interpretative information is available in the Laboratory Services Policy Manual on the [facility] at: [email or web address]/ Blood specimen (specimen) 12/05/2013 4:15 AM PCAT INSTRUCTOR 12/05/2013 4:29 AM PCAT INSTRUCTOR Ann Muhammad DO CHEMISTRY ORDERABLES [facility] CLIA# [id number] [address] [place] [address] * (ABNORMAL) CBC WITH DIFFERENTIAL (12/05/2013 4:15 AM PCAT INSTRUCTOR) WBC 13.3(H) 4.0 - 9.8 K/uL [facility] RBC 3.60(L) 3.90 - 4.90 M/uL [facility] HEMOGLOBIN 10.9(L) 11.8 - 14.8 g/dL [facility] - [facility] HEMATOCRIT 33.6(L) 35.5 - 44.0 % [facility] MCV 93.3 82.0 - 99.0 fL [facility] MCH 30.3 27.2 - 32.6 pg [facility] MCHC 32.4 31.5 - 35.5 % [facility] PLATELETS 236 140 - 350 K/uL [facility] MPV 11.2 9.3 - 12.4 fL [facility] RDW 13.8 11.5 - 14.5 % [facility] RDW-STDEV 47.2 37.1 - 48.7 fL [facility] NEUTROPHILS 83(H) 45 - 70 % [facility] LYMPHOCYTES 8(L) 16 - 45 % [facility] MONOCYTES 9 3 - 13 % [facility] EOSINOPHILS 0 0 - 7 % [facility] BASOPHILS 0 0 - 2 % [facility] NEUTROPHIL ABSOLUTE 11.09(H) 1.90 - 7.00 K/uL [facility] LYMPHOCYTE ABSOLUTE 1.06 0.70 - 4.50 K/uL [facility] MONOCYTE ABSOLUTE 1.18 0.10 - 1.30 K/uL [facility] EOSINOPHIL ABSOLUTE 0.00 0.00 - 0.70 K/uL [facility] - [facility] BASOPHILS ABSOLUTE 0.00 0.00 - 0.20 K/uL [facility] - [facility] Blood specimen (specimen) 12/05/2013 4:15 AM PCAT INSTRUCTOR 12/05/2013 4:29 AM PCAT INSTRUCTOR Ann Muhammad DO HEMATOLOGY ORDERABLE S [facility] CLIA# [id number] [address] [place] [address] * (ABNORMAL) POC GLUCOSE (12/05/2013 4:06 AM PCAT INSTRUCTOR) GLUCOSE POC 141(H) 65 - 99 mg/dL INTERFACE SYSTEM CLIA LICENSE [id number] [facility] Blood specimen (specimen) 12/05/2013 4:06 AM PCAT INSTRUCTOR 12/05/2013 4:06 AM PCAT INSTRUCTOR Ann Newberg DO POINT OF CARE TESTIN G Performing Organization Address City/[facility] Co de Phone Number INTERFACE SYSTEM Refer to clinic/hospital department * (ABNORMAL) POC GLUCOSE (12/04/2013 11:16 PM PCAT INSTRUCTOR) GLUCOSE POC 122(H) 65 - 99 mg/dL INTERFACE SYSTEM CLIA LICENSE [id number] [facility] Blood specimen (specimen) 12/04/2013 11:16 PM PCAT INSTRUCTOR 12/04/2013 11:16 PM PCAT INSTRUCTOR Ann Jb DO POINT OF CARE TESTIN G INTERFACE SYSTEM Refer to clinic/hospital department * (ABNORMAL) POC GLUCOSE (12/04/2013 8:15 PM PCAT INSTRUCTOR) GLUCOSE POC 140(H) 65 - 99 mg/dL INTERFACE SYSTEM CLIA LICENSE [id number] [facility] Blood specimen (specimen) 12/04/2013 8:15 PM PCAT INSTRUCTOR 12/04/2013 8:15 PM PCAT INSTRUCTOR Ann Muhammad DO POINT OF CARE TESTFREDI Carrasco Performing Organization Address [facility] de Phone Number INTERFACE SYSTEM Refer to clinic/hospital department * (ABNORMAL) POC GLUCOSE (12/04/2013 5:57 PM PCAT INSTRUCTOR) GLUCOSE POC 184(H) 65 - 99 mg/dL INTERFACE SYSTEM CLIA LICENSE [id number] [facility] Blood specimen (specimen) 12/04/2013 5:57 PM PCAT INSTRUCTOR 12/04/2013 5:57 PM PCAT INSTRUCTOR Ann Griggs MD POINT OF CARE TESTFREDI Carrasco Performing Organization Address [facility] de Phone Number INTERFACE SYSTEM Refer to clinic/hospital department * PATHOLOGY (12/04/2013 12:33 PM PCAT INSTRUCTOR) SURGICAL PATHOLOGY ?[facility] ?[address] ? [place], [place] ??[address] ? Patient: ??REBEL SCHULTZ ? : ??1950 ? Procedure Date: ??12/04/2013 ? Accession Date: ??12/04/2013 ? Case No: ??1- [id number] ? Ordering Dr: ??ANN GRIGGS ? Case type SW is performed by [facility], [address] [place] [address], ? [place], [place] ??[address]; all other case types are performed by [facility] ? [facility], [address], [place], [place] ??[address] ?SURGICAL PATHOLOGY & NON-GYNECOLOGIC CYTOPATHOLOGY REPORT ? DIAGNOSIS ? HEAD OF PANCREAS, STOMACH, DUODENUM, AND BILE DUCT, WHIPPLE PROCEDURE: ? 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 ? 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 1.2 MM, T1). ? - PANCREATIC INTRAEPITHELIAL NEOPLASIA, GRADE 2. ? - LYMPH NODES, NEGATIVE FOR MALIGNANCY (0/16, N0). ? - DUODENUM, WITH PYLORIC GLAND ADENOMA, WITH LOW-GRADE DYSPLASIA. ? - ALL MARGINS OF RESECTION ARE NEGATIVE FOR MALIGNANCY. ? GALLBLADDER, CHOLECYSTECTOMY: ? - CHRONIC CHOLECYSTITIS, WITH MILD ACTIVE INFLAMMATION. ? - CHOLESTEROLOSIS. ? OMENTUM, EXCISION: ? - NEGATIVE FOR MALIGNANCY. ? Specimen Description: ? Gallbladder, head of pancreas, duodenum, bile duct. ? Operative Procedure: ? Whipple procedure. ? Patient Information/History/ Diagnosis: ? Pancreatic head mucinous tumor. ? Gross: ? Received in a container labeled Rebel Schultz, gallbladder, head of ? pancreas, duodenum, bile duct is an 18.5 cm long and 6 cm circumference ? portion of duodenum, continuous with a 9 cm long and 10 cm maximum ? circumference portion of stomach. Attached is a 7 x 5 x 3-cm portion of ? pancreas. The stomach and duodenum are received closed, with the margins ? stapled. The pancreas has been previous incised by the surgeon, with a ? length of 5.5 cm and a depth of 2.5 cm. The pancreatic margins are inked as ? follows: uncinate process and groove of mesenteric vessels-yellow, ? pancreatic resection margin-green, anterior surface-blue, and posterior ? surface-black. The serosal surface of stomach and duodenum are pink-barrientos, ? smooth and glistening. The adipose tissue attached to the stomach is 12 x 5 ? x 1.5 cm. The wall of the stomach and small bowel has a thickness of 0.3 ? cm. The mucosal surface of the stomach is mackay and velvety with normal ? folds. The mucosal surface of the duodenum is barrientos-mackay and velvety with ? normal folds. An area of granularity is identified at the ampulla of Vater. ? The bile duct margin shows no evidence of dilatation; however, the ampulla ? of Vater is difficult to probe. The bile duct mucosa is macaky and smooth, ? without any compressing masses. The granular nodule at the ampulla of Vater ? is 1.1 x 0.5 x 0.5 cm. The bile duct mucosa is marked with yellow ink. ? Sectioning exhibits a multiloculated cyst with a thickened white wall, ? measuring 1.1 x 2.5 x 0.9 cm. The cyst is 1.4 cm from the green-inked ? resection margin, 0.2 cm from the blue-inked anterior surface, 0.4 cm from ? the yellow-inked groove of the mesenteric vessels, and approximately 1 cm ? from the yellow-inked uncinate process. The lesion is approximately 0.8 cm ? from the black-inked posterior surface. The lesion does not involve the ? bile duct mucosa or the ampulla of Vater. The remainder of the pancreatic ? parenchyma is pink-mackay and lobulated. The peripancreatic fat and the fat ? attached to the stomach is dissected for lymph nodes. Multiple potential ? lymph nodes are identified. [employer] sections are submitted in ? cassettes as follows: A1 and A2-uncinate process, perpendicularly sectioned ? and entirely submitted; A3-pancreatic resection margin, perpendicularly ? sectioned and entirely submitted; A4 through A7-cystic lesion, entirely ? submitted, proximal to distal; A8-unremarkable pancreas, including yellow-, ? blue-, and black-inked surfaces; A9 and L24-rltphkcs peripancreatic lymph ? nodes; A11 and G01-uldg with one peripancreatic lymph node, bisected; A13 ? through P95-twktotvlit around cystic lesion, entirely submitted; B1- ? duodenum margin, enface; B2-bile duct margin, en face; B3 and B4-ampulla ? with nodular lesion (entirely submitted), bile duct, and pancreas; C1 and ? C2-stomach margin, en face; C3-pylorus; C4 and C5-multiple lymph nodes from ? adipose tissue attached to stomach; C6-one lymph node, bisected, from ? adipose tissue attached to stomach; C13 though R06-qmalisimy of tissue ? around cystic lesion. Also received within the container is a 7.8 x 2 x ? 0.8-cm collapsed previously disrupted gallbladder. The serosal surface is ? purple-barrientos, smooth and glistening. The gallbladder wall has a uniform ? thickness of 0.3 cm. The mucosal surface is mackay and velvety, with focal ? yellow stippling. No distinct mucosal lesions are identified. ? [employer] sections are submitted in cassette D1 and D2. Also received ? loose within the container is a 27 x 9 x 1.4-cm piece of yellow adipose ? tissue, consistent with omentum. The cut surface is yellow-mackay, lobulated ? and unremarkable. [employer] sections are submitted in cassettes E1 and ? E2. ? [facility] 12.05.2013 03:32 pm ? Microscopic: ? Received are slides labeled [id number], Rebel Foreman. ? The submitted Whipple specimen shows the presence of a 2.5-cm intraductal ? papillary mucinous neoplasm (IPMN), which appears to predominately involve ? the branched ducts, but is also present within the main pancreatic duct. ? The IPMN is variably lined by low- and intermediate-grade dysplastic ? columnar epithelium. The wall of the cyst is fibrotic, with no evidence of ? ovarian stroma. Retention cysts are noted at the proximal aspect of the ? IPMN. There are two distinct foci of microinvasive carcinoma, characterized ? by angulated atypical glands within dysplastic stroma, and measuring 1 mm ? and 1.2 mm in maximal dimension (slide A6 and A15, respectively). Both foci ? are found immediately adjacent to the IPMN, without involvement of the ? extrapancreatic soft tissue, or evidence of lymphovascular or perineural ? invasion. The surrounding pancreas also shows small patchy foci of chronic ? pancreatitis. Pancreatic intraepithelial neoplasia, ranging from 1A to ? grade 2, is noted also within the background pancreas. Eight peripancreatic ? lymph nodes are sampled, which are all negative for malignancy. The grossly ? noted nodular lesion within the ampulla shows a haphazard arrangement of ? glands and smooth muscle bundles, compatible with an adenomyoma; within ? this lesion is a small collection of crowded rounded glands, lined by ? mildly dysplastic columnar cells with abundant pale pink cytoplasm, ? consistent with a pyloric gland adenoma; associated high-grade dysplasia or ? malignancy are not identified. Sections of pylorus show no significant ? histologic abnormalities. Sections from the proximal gastric and distal ? duodenal resection margins also show no significant histologic ? abnormalities. All margins of resection are negative for malignancy. Eight ? perigastric lymph nodes are negative for malignancy. ? Sections of gallbladder show the presence of patchy mild acute and chronic ? inflammation, mild to moderately thickened muscularis propria, numerous ? deeply penetrating Rokitansky-Aschoff sinuses, some developing into well- ? formed pseudo-diverticula with surrounding stromal reaction, and focal ? antral and foveolar-type metaplasia. Significant cytologic atypia is not ? identified within the pseudo-diverticula or overlying mucosa. Scattered ? superficial collections of foamy histocytes are present within the lamina ? propria, consistent with cholesterolosis. There is no evidence of dysplasia ? within the overlying mucosa. ? The submitted omentum shows no significant histologic abnormalities. ? Select slides (A6, A15, B4 and D1) of this case were shown at the ? intradepartmental review conference. ? Summary of Significant Characteristics: ? Specimen: Head of pancreas, duodenum, stomach, common bile duct, ? gallbladder and omentum. ? Procedure: Whipple-partial pancreatectomy. ? Tumor Site: Head of pancreas. ? Tumor Size: 1 and 1.2 mm. ? Histologic Type: Microinvasive carcinoma arising within an IPMN. ? Histologic Grade: Well-differentiated, grade 1. ? Microscopic Tumor Extension: Confined to the pancreas. ? Margins: Uninvolved by in situ or invasive carcinoma. ? Treatment Effect: Not identified. ? Lymph-Vascular Invasion: Not identified. ? Perineural Invasion: Not identified. ? Pathologic Staging (pTNM): pT1, N0, Mx. ? Lymph nodes: Number examined 16; Number involved 0. ? [facility] 12.06.2013 01:09 pm ? Staging Form: ? Yes. ? ELECTRONIC SIGNATURE FOR CHRISTINA ISLAS M.D.- 12/11/13 04:09 pm [facility] Tissue specimen (specimen) 12/04/2013 12:33 PM PCAT INSTRUCTOR Ann Muhammad DO PATHOLOGY/CYTOLOGY O RDERABLES [facility] CLIA# [id number] [address] [facility] [place] [address] * (ABNORMAL) POC GLUCOSE (12/04/2013 11:48 AM PCAT INSTRUCTOR) GLUCOSE POC 167(H) 65 - 99 mg/dL INTERFACE SYSTEM CLIA LICENSE [id number] INTERF YANY SYSTEM Blood specimen (specimen) 12/04/2013 11:48 AM PCAT INSTRUCTOR 12/04/2013 11:48 AM PCAT INSTRUCTOR Ann Griggs MD POINT OF CARE TESTIN G INTERFACE SYSTEM Refer to clinic/hospital department * (ABNORMAL) POC GLUCOSE (12/04/2013 7:11 AM PCAT INSTRUCTOR) GLUCOSE POC 127(H) 65 - 99 mg/dL INTERFACE SYSTEM CLIA LICENSE [id number] INTERF YANY SYSTEM Blood specimen (specimen) 12/04/2013 7:11 AM PCAT INSTRUCTOR 12/04/2013 7:11 AM PCAT INSTRUCTOR Ann Griggs MD POINT OF CARE TESTFREDI Carrasco INTERFACE SYSTEM Refer to clinic/hospital department documented in this encounter Visit Diagnoses Not on filedocumented in this encounter Administered Medications Inactive Administered Medications - up to 3 most recent administrations Medication Order MAR Action Action Date Dose Rate Site water sterile irrigation irrigation INTRA-PROCEDURE PRN, Starting on Wed12/04/13 at 0759, Until Wed12/04/13 at 1144, Routine, Intra-op Given 12/04/2013 7:59 AM PCAT INSTRUCTOR 1,000 mL Operative Site documented in this encounter Active and Recently Administered Medications Due to Daylight Saving Time, this section may contain times in both PCAT INSTRUCTOR and CDT. Scheduled Medication Order 12/08/2013 2013 12/10/2013 alvimopan (ENTEREG) capsule 12 mg (CANCELED) 12 mg, Oral, TWO TIMES DAILY, 14 doses, First dose on Wed12/05/13 at 0900, Last dose on Wed12/11/13 at 2100, Routine 0855 (Given - Provider: Samantha Perez RN)2110 (Given - Provider: Clara Doty RN) 09 (Given - Provider: Jennifer Cowan RN)2043 (Given - Provider: Clara Doty RN) 09 (Not Given - Provider: Jennifer Cowan RN - Reason: Patient condition - Comment: having loose stools) famotidine PF (PEPCID) 20 mg/2 mL injection 20 mg (CANCELED) 20 mg, IV, TWO TIMES DAILY, First dose on Wed12/04/13 at 2100, Until Discontinued, Routine 0849 (Given - Provider: Samantha Perez RN)2110 (Given - Provider: Clara Doty RN) 905 (Given - Provider: Jennifer N Cowan, RN)2044 (Given - Provider: Clara Doty RN) 0841 (Given - Provider: Jennifer Cowan RN) heparin injection 5,000 Units (CANCELED) 5,000 Units, subCUT, EVERY 12 HOURS (BlD), First dose (after last reorder) on Wed12/05/13 at 0600, Until Discontinued, Routine 0856 (Given - Provider: Samantha Preez RN) heparin injection 5,000 Units (CANCELED) 5,000 Units, subCUT, EVERY 8 HOURS EARLY, First dose on Wed12/08/13 at 1700, Until Discontinued, Routine 1734 (Given - Provider: Samantha Perez RN) 0039 (Given - Provider: Clara Doty RN)0906 (Given - Provider: Jennifer Cowan RN)1705 (Refused - Provider: Jennifer Cowan RN) 0100 (Canceled Entry - Provider: Clara Doty RN - Comment: refused)0900 (Refused - Provider: Jennifer Cowan RN) insulin aspart (NOVOLOG) 100 unit/mL variable dose (CANCELED) subCUT, FOUR TIMES DAILY BEFORE MEALS AND AT BEDTIME, First dose (after last modification) on Wed12/08/13 at 1600, Until Discontinued, Routine 1753 (Given - Provider: Samantha Perez RN - Comment: blood sugar [phone] (Given - Provider: Clara Doty RN) insulin aspart (NOVOLOG) 100 unit/mL variable dose (CANCELED) subCUT, FOUR TIMES DAILY WITH MEALS AND AT BEDTIME, First dose (after last modification) on Wed12/09/13 at 0700, Until Discontinued, Routine 0944 (Not Given - Provider: Jennifer Cowan RN - Reason: Lab results - Comment: [phone] (Refused - Provider: Jennifer Cowan RN - Comment: [phone] (Given - Provider: Jennifer Cowan RN - Comment: [phone] (Given - Provider: Clara Doty RN) 0839 (Given - Provider: Jennifer Cowan RN - Comment: 171) metFORMIN (GLUCOPHAGE) tablet 500 mg (CANCELED) 500 mg, Oral, DAILY WITH SUPPER, First dose on Wed12/08/13 at 1700, Until Discontinued 1732 (Given - Provider: Samantha Perez RN) 1711 (Given - Provider: Jennifer Cowan RN) metoprolol (LOPRESSOR) 5 mg/5 mL injection 2.5 mg (CANCELED) 2.5 mg, IV, EVERY 6 HOURS, First dose (after last modification) on Marina 12/07/13 at 1200, Until Discontinued, Routine 0846 (Given - Provider: Samantha Perez RN) metoprolol tartrate (LOPRESSOR) tablet 25 mg (CANCELED) 25 mg, Oral, TWO TIMES DAILY, First dose on Wed12/08/13 at 2100, Until Discontinued, Routine 2115 (Given - Provider: Clara Doty RN) 0905 (Given - Provider: Jennifer Cowan RN)2044 (Given - Provider: Clara Doty RN) 0840 (Given - Provider: Jennifer Cowan RN) potassium chloride (KLOR-CON,K-TAB) tablet 40 mEq (COMPLETED) 40 mEq, Oral, ONE TIME ONLY, 1 dose, On 12/09/13 at 1500, Routine 1610 (Given - Provider: Jennifer Cowan RN) potassium Cl 40 mEq in sodium chloride 0.9% 250 mL IVPB (COMPLETED) 40 mEq, IV, ONE TIME ONLY, 1 dose, On 12/09/13 at 1630, at 67.5 mL/hr, Administer over 4 Hours, Routine 1656 (New Bag - Provider: Jennifer Cowan RN) triamterene-hydrochloro thiazide (MAXZIDE 25) 37.5-25 mg per tablet 1 Tab (CANCELED) 1 Tablet, Oral, DAILY, First dose on Wed12/08/13 at 0900, Until Discontinued, Routine 1005 (Given - Provider: Samantha Perez RN) 0905 (Given - Provider: Jennifer Cowan RN) 0840 (Given - Provider: Jennifer Cowan RN) Continuous Medication Order 12/08/2013 2013 12/10/2013 bupivacaine PF 0.1 %, morphine PF 0.1 mg/mL in sodium chloride 0.9% 383.3 mL EPIDURAL 500 mL, Epidural, at 5 mL/hr, CONTINUOUS, Starting on Wed12/04/13 at 0745, Until Wed12/08/13 at 0744, #[id number] dextrose 5% - sodium chloride 0.45% infusion (CANCELED) IV, at 30 mL/hr, CONTINUOUS, Starting on Wed12/06/13 at 1700, Until Wed12/10/13 at 1209, Routine 0331 (Rate Verify - Provider: Roddy Marley RN)0906 (New Bag - Provider: Samantha Perez RN)0923 (Rate Verify - Provider: Samantha Perez RN)1821 (Rate Verify - Provider: Samantha Perez RN)1945 (Rate Verify - Provider: Clara Doty RN)2111 (New Bag - Provider: Clara Doty RN)2134 (Rate Verify - Provider: Clara Doty RN) 0150 (Rate Verify - Provider: Clara Doty RN)0416 (Rate Verify - Provider: Clara Doty RN)1100 (Stopped - Provider: Jennifer Cowan RN) PRN Medication Order 12/08/2013 2013 12/10/2013 diphenhydrAMINE (BENADRYL) injection 12.5 mg (CANCELED) 12.5 mg, IV, EVERY 6 HOURS PRN, Starting on Wed12/04/13 at 1359, Until Wed12/10/13 at 1209, Itching, Routine 0413 (Given - Provider: Clara Doty RN)2335 (Given - Provider: Clara Doty RN) morphine injection 2 mg (CANCELED) 2 mg, IV, EVERY 3 HOURS PRN, Starting on Wed12/04/13 at 1359, Until Wed12/08/13 at 0912, Pain, Break-Through, Routine 0331 (Given - Provider: Roddy Marley RN) ondansetron (ZOFRAN) 4 mg/2 mL injection 4 mg (CANCELED) 4 mg, IV, EVERY 6 HOURS PRN, Starting on Wed12/04/13 at 1359, Until Wed12/10/13 at 1209, Nausea/Emesis, Routine 0412 (Given - Provider: Clara Doty, [place])2334 (Given - Provider: Clara Doty RN) oxyCODONE-acetaminophen (PERCOCET) 10-325 mg per tablet 1 Tab (CANCELED) 1 Tablet, Oral, EVERY 3 HOURS PRN, Starting on 12/08/13 at 0911, Until 12/10/13 at 1209, Pain, Severe, Routine 1129 (Given - Provider: Samantha Perez RN)1733 (Given - Provider: Samantha Perez RN)2133 (Given - Provider: Clara Doty RN) 1307 (Given - Provider: Jennifer Cowan RN)2145 (Given - Provider: Clara Doty RN) documented in this encounter Care Teams Splicing Machine Operator Automatic Relationship Specialty Start Date End Date Jareth Lopez MD [address] [place] [address] PCP - General Family Practice 04/11/13 documented as of this encounter
--- OUTSIDE RECORDS SUMMARY | 2024-09-27 17:41 | XMS_ITS | Encounter Summary ---
Author Organization [facility] Address [address] [place] [address] Care Team Providers Care Sqe Name Role Phone Jareth Lopez MD Primary Care Provider [phone] Reason for Visit * Auth/Cert - Closed Specialty Diagnoses / Procedures Referred By Contac t Referred To Contact General Surgery Procedures [facility] [address] [place] [address] Referral ID Status Reason Start Date Expiration Date Visits Re quested Visits Authorized [id number] Closed 1 1 Encounter Details Date Type Department Care Team (Late st Contact Info) Description 12/04/2013 7:23 AM INSULATION AND FLOORING ASSEMBLER Anesthesia Event [facility] Operating Room [address] [place] [address] Jamar Arora MD [address] [place] [address] Bria Jacobson CRNA [address] [place] [address] Anesthesia Record Procedure Summary Procedure Name Responsible Anesthesiologist Anesthesia Start Time Anesthesia Stop Time [place] (Abdomen) Jamar Arora MD 12/04/13 0723 1151 Events Date Time Event Comment 12/04/2013 0639 AN Equip Check Anesthesia eq uipment and materials checked in accordance with local policy. 0723 An Start 0725 An Start Data 0728 Pre-Induction Immediate pre- induction anesthetic assessment performed. Vital signs as noted on graphic. 0731 An Induction 0735 An Intubation 0736 Anesthesia Ready 0737 Quick Note Tidal volumes 4 80--500, max ventilating pressures 20--23 0803 Handoff - Intraop Anesthesio logy transfer of care elements completed in accordance with procedure. 0809 0819 an capri now 0852 Quick Note Gave pt. Test d ose of 1 mg morphine. Will wait and evaluate for the small chance that she has a cross allergy from codeine allergy. If no indication of cross allergy, will start Morphine/bupivacaine epidural drip. 1144 An Extubation Emergence unev entful Awake, spontaneous respirations. Adequate muscle strength demonstrated Adequate tidal volume. Orapharynx suctioned. Extubated with positive pressure ventilation. 1144 an stop data 1151 An Stop Meds Name Total phenylephrine (DEA-SYNEPHRINE) 10??mg/mL injection 300 mcg clindamycin (CLEOCIN) IVPB 600 mg 600 mg gentamicin in saline (iso-os m) (GARAMYCIN) 120 mg/100 mL traditional dose IVPB 120 mg 120 mg propofol (DIPRIVAN) 10??mg/mL injection 200 mg lidocaine (XYLOCAINE) 2% injection 60 mg rocuronium (ZEMURON) 10mg/mL injection 7 0 mg fentaNYL (SUBLIMAZE) PF 50??mcg/mL injec tion 350 mcg dexamethasone (DECADRON) 4 mg/mL injecti on 8 mg ondansetron (ZOFRAN) 4??mg/2 mL injectio n 8 mg famotidine (pf) (PEPCID) 20 mg/2 mL inje ction 20 mg morphine 10 mg/mL syringe 1 mg bupivacaine PF 0.1 %, morphi ne PF 0.1 mg/mL in sodium chloride 0.9% 383.3 mL EPIDURAL 12.5 mL scopolamine (TRANSDERM-SCOP) 1.5 mg [place] sdermal patch 1.5 mg 1.5 mg morphine PF (ASTRAMORPH,DURAMORPH) 1 mg/ mL injection 3 mg neostigmine (PROSTIGMINE) 1 mg/mL inject ion 5 mg glycopyrrolate (ROBINUL) 0.2 mg/mL injec tion 0.8 mg BUPivacaine MPF (SENSORCAINE MPF) 0.25% injection 5 mL lactated ringers solution 3,500 mL * Agents Name Sevoflurane % Desflurane % Sevoflurane Desflurane O2 Inspired O2 N2O Inspired N2O * Blood No blood administrations on file. Lines, Drains, and Airways Type Details Placement Removal Endotracheal Airway Type: Oral; Size: 9 12/04/13 0000 by Andreina Bolden RN 12/04/13 1155 by Andreina Bolden RN Endotracheal Airway Type: ETT; Cuff Pressure: minimal leak technique, minimal occluding volume, cuff inflated; Secured: secured with tape; Verification: Auscultated bilateral breath sounds, Equal chest movement, Continuous waveform capnography 12/04/13 0639 by Bria Jacobson CRNA 12/04/13 1144 by Bria Jacobson CRNA Endotracheal Airway Type: ETT; Cuff Pressure: cuff inflated; Size: 7; Site: mouth; Attempts: 1; FOV: I; cm: 23; Device: Straight Blade; Blade: 2; Secured: secured with tape; Cricoid: Yes; Verification: Auscultated bilateral breath sounds, Equal chest movement, Continuous waveform capnography 12/04/13 0735 by Bria Jacobson CRNA 12/04/13 1144 by Bria Jacobson CRNA 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 Urethral 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 12/04/13; 0739; No; Indwelling double lumen catheter; latex; 16 Fr; inserted (by Ruthie WOODS); 1; 5; 10; 12/08/13; 1532 12/04/13 0739 by Megan Walls RN 12/08/13 1532 by Samantha Perez RN Peripheral IV Pre-Hospital Start: No; Orientation: Posterior, Right; Location: Hand; Device: Angiocath; Gauge: 16 gauge; Needle Length: 1.25 in length; Insertion Attempts: 1; Patient Tolerance: tolerated well; Removal Indication: site symptomatic; Removal Interventions: direct pressure 12/04/13 0757 by Bria Jacobson CRNA 12/07/13 0107 by Roddy Marley, RN ART Line Present on Admission : No; Orientation: Left:; Location: radial artery; Size (Ga): 20 Ga; Patient Tolerance: tolerated well 12/04/13 0759 by Bria Jacobson CRNA 12/04/13 1600 by Clara Diaz RN Epidural Present on Admission : No 12/04/13 0819 by 12/08/13 0900 by Samantha Perez RN Drain Present on Admission : No; Tube Number: #1; Location: abdomen; Type: round; Size (Fr): 19 Fr 12/04/13 0958 by Megan Walls RN 12/09/13 0730 by Jennifer Cowan RN Drain Present on Admission : No; Tube Number: #2; Location: abdomen; Type: round; Size (Fr): 19 Fr 12/04/13 1017 by Megan Walls RN 12/09/13 0730 by Jennifer Cowan RN Adult Incision 12/04/13; 1118; surgical incision; Bilateral; abdomen; 12/10/13; 2209 12/04/13 1118 by Megan Walls RN 12/10/13 2209 by PROVIDER, DISCHARGE PATIENT NG/OG Tube Present on Admission : No; Type: [place] sump; Size: 14 Fr; Location: left nostril 12/04/13 1222 by 12/07/13 1229 by Brea Galan RN Peripheral IV Pre-Hospital Start: No; Orientation: Left; Location: Wrist; Device: Angiocath; Gauge: 18 gauge; Removal Indication: site symptomatic; Removal Interventions: direct pressure 12/07/13 0000 by Roddy Marley RN 12/07/13 0107 by Roddy Marley RN documented in this encounter Social History [...] OR Notes * Anesthesia Postprocedure Evaluation - Jamar Arora MD - 12/04/2013 12:23 PM CST Phase I Postanesthesia Evaluation Including Modified Valerie Score Patient seen and evaluated: Modified Valerie Score: Score: 8 (12/04/13 1155) COMMENTS: No apparent Anesthesia related complications RESPIRATORY FUNCTION: Respiration: able to breath and cough freely (12/04/13 115) [2=able to breathe and cough freely, 1=dyspnea, limited breathing or tachypnea, 0=apnea or mechanicventilator] O2 Saturation: needs O2 inhalation to maintain O2 saturation greater than 90% (12/04/13 115) [2=able to maintain O2 saturation greater than 92% on room air, 1=needs O2 inhalation to maintain O2 saturation greater than 90%, 0=O2 saturation less than 90% even with O2 supplement] Resp: 18 (12/04/13 1200)SpO2: 98 % (12/04/13 1200) CARDIOVASCULAR FUNCTION: Heart Rate (Monitored): 92 bpm (12/04/13 1200) BP: 141/85 mmHg (12/04/13 1200) Circulation: BP within 20% of preanesthetic level (12/04/13 115) [2=BP within 20% of preanesthetic level, 1=BP within 20-49% of preanesthetic level, 0=BP within 50%of preanesthetic level] MENTAL STATUS, NEURO, ACTIVITY: Consciousness: arousable on calling (12/04/13 115) [2=fully awake, 1=arousable on calling, 0=not responding] Activity: able to move 4 extremities voluntarily or on command (12/04/13 115) [2=able to move 4 extremities voluntarily or on command, 1=able to move 2 extremities voluntarily or on command, 0=unable to move extremities voluntarily or on command] TEMPERATURE: Temp: 37 ??C (12/04/13 1145) PAIN: Pain Rating: Rest: 0 (12/04/13 0621) Presence of Pain: denies pain/discomfort (12/04/13 06) NAUSEA AND VOMITING: POSTOPERATIVE HYDRATION: Intake/Output Summary (Last 24 hours) at 12/04/13 1223 Last data filed at 12/04/13 1105 Gross per 24 hour Intake 3500 ml Output 450 ml Net 3050 ml Jamar Arora MD 12/04/2013 12:23 PM LATION AND FLOORING ASSEMBLER * Anesthesia Preprocedure Evaluation - Jamar Arora MD - 12/04/2013 8:07 AM CST Anesthesia Evaluation Airway Mallampati: II TM distance: >3 FB Neck ROM: full Dental - normal exam Pulmonary - negative ROS breath sounds clear to auscultation Cardiovascular Exercise tolerance: good (+) hypertension well controlled, ECG reviewed Rhythm: regular Rate: normal Neuro/Psych - negative ROS GI/Hepatic/Renal (+) PUD (PPI, no issues), (-) GERD Endo/Other (+) diabetes mellitus type 2 well controlled, arthritis Abdominal (-) obese Anesthesia History No history of anesthetic complications, no history of difficult intubation and no history of PONV. Anesthesia Plan ASA 2 General (Art line, NG tube) Intravenous induction Oral ETT airway maintenance NPO status > 8 hours Anesthetic plan and risks discussed with Patient and Spouse. Use of blood products: consented to blood products. Plan discussed with Nurse Stone Decorator. Post-op Pain Control Plan to use Epidural and IV or IM medication for post-op pain control. LATION AND FLOORING ASSEMBLER documented in this encounter Plan of Treatment Not on file documented as of this encounter Visit Diagnoses Not on filedocumented in this encounter Administered Medications Inactive Administered Medications - up to 3 most recent administrations Medication Order MAR Action Action Date Dose Rate Site bupivacaine PF 0.1 %, morphine PF 0.1 mg/mL in sodium chloride 0.9% 383.3 mL EPIDURAL 500 mL, Epidural, at 5 mL/hr, CONTINUOUS, Starting on Wed12/04/13 at 0745, Until Wed12/08/13 at 0744, #[id number] Rate Verify 12/07/2013 5:55 PM INSULATION AND FLOORING ASSEMBLER 5 mL/hr Rate Verify 12/07/2013 8:51 AM INSULATION AND FLOORING ASSEMBLER 5 mL/hr Rate Verify 12/06/2013 1:53 PM INSULATION AND FLOORING ASSEMBLER 5 mL/hr bupivacaine PF 0.25 % (SENSORCAINE MPF) injection INTRA-PROCEDURE PRN, Starting on Wed12/04/13 at 1113, Until Wed12/04/13 at 1151, Routine, Anesthesia Intra-op Given 12/04/2013 11:13 AM INSULATION AND FLOORING ASSEMBLER 5 mL clindamycin (CLEOCIN) IVPB 600 mg 600 mg, IV, PRE-PROCEDURE ONCE, 1 dose, Starting on Wed12/04/13 at 0627, Until Wed12/04/13 at 0723, Routine, Pre-op Given 12/04/2013 7:23 AM INSULATION AND FLOORING ASSEMBLER 600 mg dexamethasone (DECADRON) injection INTRA-PROCEDURE PRN, Starting on Wed12/04/13 at 0816, Until Wed12/04/13 at 1151, Routine, Anesthesia Intra-op Given 12/04/2013 8:16 AM INSULATION AND FLOORING ASSEMBLER 8 mg famotidine PF (PEPCID) 20 mg/2 mL injection INTRA-PROCEDURE PRN, Starting on Wed12/04/13 at 0817, Until Wed12/04/13 at 1151, Routine, Anesthesia Intra-op Given 12/04/2013 8:17 AM INSULATION AND FLOORING ASSEMBLER 20 mg fentaNYL PF (SUBLIMAZE) 50 mcg/mL injection INTRA-PROCEDURE PRN, Starting on Wed12/04/13 at 0731, Until Wed12/04/13 at 1151, Routine, Anesthesia Intra-op Given 12/04/2013 10:54 AM INSULATION AND FLOORING ASSEMBLER 100 mcg Given 12/04/2013 9:43 AM INSULATION AND FLOORING ASSEMBLER 50 mcg Given 12/04/2013 9:20 AM INSULATION AND FLOORING ASSEMBLER 100 mcg gentamicin in saline (iso-osm) (GARAMYCIN) 120 mg/100 mL traditional dose IVPB 120 mg 120 mg, IV, PRE-PROCEDURE ONCE, 1 dose, Starting on Wed12/04/13 at 0629, Until Wed12/04/13 at 0740, Routine Given 12/04/2013 7:40 AM INSULATION AND FLOORING ASSEMBLER 120 mg glycopyrrolate (ROBINUL) injection INTRA-PROCEDURE PRN, Starting on Wed12/04/13 at 1110, Until Wed12/04/13 at 1151, Routine, Anesthesia Intra-op Given 12/04/2013 11:10 AM INSULATION AND FLOORING ASSEMBLER 0.8 mg lactated ringers solution IV, at 150 mL/hr, PRE-PROCEDURE CONTINUOUS, Starting on Wed12/04/13 at 0630, Until Wed12/04/13 at 1348, Routine New Bag 12/04/2013 8:40 AM INSULATION AND FLOORING ASSEMBLER New Bag 12/04/2013 7:05 AM INSULATION AND FLOORING ASSEMBLER lidocaine 2 % (XYLOCAINE) injection INTRA-PROCEDURE PRN, Starting on Wed12/04/13 at 0731, Until Wed12/04/13 at 1151, Other (See Comment), Routine, Anesthesia Intra-op Given 12/04/2013 7:31 AM INSULATION AND FLOORING ASSEMBLER 60 mg morphine 10 mg/mL syringe INTRA-PROCEDURE PRN, Starting on Wed12/04/13 at 0852, Until Wed12/04/13 at 1151, Routine, Anesthesia Intra-op Given 12/04/2013 8:52 AM INSULATION AND FLOORING ASSEMBLER 1 mg morphine PF (ASTRAMORPH,DURAMORPH) 1 mg/mL injection INTRA-PROCEDURE PRN, Starting on Wed12/04/13 at 0920, Until Wed12/04/13 at 1151, Routine, Anesthesia Intra-op Given 12/04/2013 9:20 AM INSULATION AND FLOORING ASSEMBLER 3 mg neostigmine (PROSTIGMINE) 1 mg/mL injection INTRA-PROCEDURE PRN, Starting on Wed12/04/13 at 1110, Until Wed12/04/13 at 1151, Routine, Anesthesia Intra-op Given 12/04/2013 11:10 AM INSULATION AND FLOORING ASSEMBLER 5 mg ondansetron (ZOFRAN) 4 mg/2 mL injection INTRA-PROCEDURE PRN, Starting on Wed12/04/13 at 0816, Until Wed12/04/13 at 1151, Nausea/Emesis, Routine, Anesthesia Intra-op Given 12/04/2013 10:42 AM INSULATION AND FLOORING ASSEMBLER 4 mg Given 12/04/2013 8:16 AM INSULATION AND FLOORING ASSEMBLER 4 mg phenylephrine (DEA-SYNEPHRINE) 10 mg/mL injection INTRA-PROCEDURE PRN, Starting on Wed12/04/13 at 0805, Until Wed12/04/13 at 1151, Routine, Anesthesia Intra-op Given 12/04/2013 9:10 AM INSULATION AND FLOORING ASSEMBLER 100 mcg Given 12/04/2013 8:20 AM INSULATION AND FLOORING ASSEMBLER 100 mcg Given 12/04/2013 8:05 AM INSULATION AND FLOORING ASSEMBLER 100 mcg propofol (DIPRIVAN) injection INTRA-PROCEDURE PRN, Starting on Wed12/04/13 at 0731, Until Wed12/04/13 at 1151, Anesthesia Intra-op Given 12/04/2013 7:31 AM INSULATION AND FLOORING ASSEMBLER 200 mg rocuronium (ZEMURON) injection INTRA-PROCEDURE PRN, Starting on Wed12/04/13 at 0731, Until Wed12/04/13 at 1151, Routine, Anesthesia Intra-op Given 12/04/2013 10:10 AM INSULATION AND FLOORING ASSEMBLER 10 mg Given 12/04/2013 8:55 AM INSULATION AND FLOORING ASSEMBLER 10 mg Given 12/04/2013 7:31 AM INSULATION AND FLOORING ASSEMBLER 50 mg scopolamine (TRANSDERM-SCOP) 1.5 mg transdermal patch 1.5 mg 1.5 mg, Transdermal, ONE TIME ONLY, 1 dose, On Wed12/04/13 at 0930, Routine Given 12/04/2013 9:39 AM INSULATION AND FLOORING ASSEMBLER 1.5 mg documented in this encounter Care Teams Sqe Relationship Specialty Start Date End Date Jareth Lopez MD [address] [place] [address] PCP - General Family Practice 04/11/13 documented as of this encounter
--- OUTSIDE RECORDS SUMMARY | 2024-09-27 17:41 | XMS_ITS | Encounter Summary ---
Author Organization [facility] Address [address] [place] [address] Care Team Providers Care Brand Activation Manager Name Role Phone Jareth Lopez MD Primary Care Provider [phone] Encounter Details Date Type Department Care Team (Late st Contact Info) Description 07/18/2013 Abstract [facility] [place] [id number] [facility] [address] [place] [id number] Provider, Abstract NO ADDRESS ON FILE Social [...] on filedocumented in this encounter Care Teams Brand Activation Manager Relationship Specialty Start Date End Date Jareth Lopez MD [address] [place] [address] PCP - General Family Practice 04/11/13 documented as of this encounter
--- OUTSIDE RECORDS SUMMARY | 2024-09-27 17:41 | XMS_ITS | Encounter Summary ---
Author Organization [facility] Address [address] [place] [address] Care Team Providers Care Ophthalmic Dispenser Name Role Phone Jareth Lopez MD Primary Care Provider Encounter Details Date Type Department Care Team (Latest Contact Info) Description 11/27/2013 2:57 PM WIRE FENCE BUILDER - 11/27/2013 11:59 PM [facility] Hospital Encounter [facility] [address] [place] [address] Andi Marley MD [address] [facility] [address] [place] [address] Discharge Disposition: Home or Self Care Anesthesia Record Procedure Summary Procedure Name Responsible Anesthesiologist Anesthesia Start Time Anesthesia Stop Time WHIPPLE (Abdomen) Jamar Arora MD 12/04/13 0723 1151 [...] an stop data 1151 An Stop Meds * Agents No agents [...] Bria Jacobson CRNA 12/07/13 0107 by Roddy Marley RN ART Line Present on Admission : No; Orientation: Left:; Location: radial artery; Size (Ga): 20 Ga; Patient Tolerance: tolerated well 12/04/13 0759 by Bria Jacobson, AURELIA 12/04/13 1600 by Clara Diaz RN Epidural [...] Tube Present on Admission : No; Type: [place] sump; Size: 14 Fr; Location: left nostril [...] Sign Reading Time Taken Comments Blood Pressure 156/83 11/27/2013 3:17 PM WIRE FENCE BUILDER Pulse 92 11/27/2013 3:17 PM WIRE FENCE BUILDER Temperature - - Respiratory Rate - - Oxygen Saturation 97% 11/27/2013 3:17 PM WIRE FENCE BUILDER Inhaled Oxygen Concentration - - Weight 82.6 kg (182 lb) 11/27/2013 3:17 PM WIRE FENCE BUILDER Height 163.8 cm (5' 4.5 ) 11/27/2013 3:17 PM WIRE FENCE BUILDER Body Mass Index 30.76 11/27/2013 3:17 PM WIRE FENCE BUILDER documented in this encounter Medications at Time of Discharge Medication Sig Dispensed Refills Start Date End Date triamterene-hydrochloro thiazide (MAXZIDE 25) 37.5-25 mg tablet Take 1 Tab by mouth daily. L GASSERI/B BIFIDUM/B LONGUM ([employer] ORAL) Take by mouth. oxyCODONE-acetaminophen (PERCOCET) 5-325 [...] daily. 06/05 documented as of this encounter OR Notes * Anesthesia PAT Evaluation - Celia Diaz FNP - 11/27/2013 3:30 PM WIRE FENCE BUILDER Pre-Procedure Anesthesiology Consultation and Evaluation (PACE) Service 11/27/2013 3:30 PM Name: Elena Fernández Age: 62 y.o. Sex: female CSN: [id number] Procedure: Whipple Allergies Allergen Reactions ??? Adhesive Other (See Comments) Blisters ??? Codeine Other (See Comments) Respiratory arrest ??? Nickel Other (See Comments) Sores ??? Penicillins Anaphylaxis Respiratory distress ??? Sulfa (Sulfonamide Antibiotics) Hives Internal and external hives Current Outpatient Prescriptions Medication Sig Dispense Refill ??? triamterene-hydrochlorothiazide (MAXZIDE 25) 37.5-25 mg tablet Take 1 Tab by mouth daily. ??? L GASSERI/B BIFIDUM/B LONGUM ([facility] ORAL) Take by mouth. ??? MULTIVIT,CA,MIN/D3/HERBAL #161 (ESTROVEN PM ORAL) Take by mouth. ??? METFORMIN HCL (METFORMIN ORAL) Take 500 [...] (PROBIOTIC FORMULA ORAL) Take by mouth daily. No current facility-administered medications for this encounter. Advised pt to take the following medications AM DOS: Omeprazole Advised pt to stop the following medications on :ASA/NSAIDs Patient Active Problem List Diagnosis Date Noted [...] right ??? Endoscopy, gi ??? Chg colonoscopy,diagnostic History Substance Use Topics ??? Smoking status: [...] of PONV No Review of Systems Cardiovascular: positive for h/o MVP. Respiratory: negative,Snoring - Yes, JUDITH - No Gastrointestinal: positive for pt denies GERD, states she takes Omeprazole for GI irrititation/ulcerations found on endoscopy- no longer present. Genitourinary:negative. Musculoskeletal: positive for arthralgias and stiff joints Neurological: negative Endocrine positive for DM, pancreatic tumors Hepatic: negative Exercise tolerance: able to go up 1 flight of stairs w/o cp; states she walks on treadmill in between loads of laundry. Carries laundry up and down stairs multiple times a day PHYSICAL EXAM BP 156/83 Pulse 92 Ht 5' 4.5 (1.638 m) Wt 182 lb (82.555 kg) BMI 30.77 kg/m2 SpO2 97% Weight: Weight: 182 lb (82.555 kg) (11/27/13 1517) Height: Ht Readings from Last 1 Encounters: 11/27/13 5' 4.5 (1.638 m) BMI: Body mass index is 30.77 kg/(m^2). General Appearance: Alert, oriented, no acute distress and obese Airway: normal range of motion; Airway Class: II (soft palate, uvula, fauces visible); Special Considerations None Dentition: good Lungs: clear to auscultation bilaterally, normal respiratory effort Heart: regular rate and rhythm, S1, S2 normal, no murmur, click, rub or gallop, or carotid bruit Neuro: alert, oriented x 3, no defects noted in general exam. Extremities: extremities normal, atraumatic, no cyanosis or edema LABS No results found for this basename: WBC, MANUALWBC, HGB, HGBPOC, HCT, HCTPOC, PLT, MCV No results found for this basename: NA, K, CL, CO2, CA, BUN, CREAT, GLUCOSE, ANIONGAP, BCRATIO No results found for this basename: INR, PT, PROTIMEPOC No results found for this basename: HCGURPOC, HCGQUALUR, HCGQUAL, HCGQUANT, HCGINTACT [id number] normal sinus rhythm Other Studies/Considerations: None Risks/Alternatives discussed. Questions solicited and answered. Yes Postop pain management discussed yes Smoking/Tobacco Counseling: None Recommendations:None REPORT AND NECESSARY FOLLOW-UP History and physical performed in [facility]; tests (ECG, blood work) reviewed. Abnormal Results Found: no Further Testing or Evaluation Required: no Final [facility] Center Review: May proceed with procedure/surgery: yes KRISTINA Cortez FENCE BUILDER documented in this encounter Plan of Treatment Not on file documented as of this encounter Procedures Procedure Name Priority Date/Time Associated Diagnosis Comments CBC WITH DIFFERENTIAL Stat 11/27/2013 3:00 PM WIRE FENCE BUILDER PROTIME-INR Routine 11/27/2013 3:00 PM WIRE FENCE BUILDER TYPE AND CROSSMATCH Routine 11/27/2013 3 :00 PM WIRE FENCE BUILDER BASIC METABOLIC PANEL Stat 11/27/2013 3:00 PM WIRE FENCE BUILDER EKG 12-LEAD Routine 11/27/2013 2:56 PM WIRE FENCE BUILDER documented in this encounter Results * PROTIME-INR (11/27/2013 3:00 PM WIRE FENCE BUILDER) PROTIME 13.5 12.7 - 15.1 Seconds [facility] INR 1.0 0.9 - 1.1 [facility] Comment: INR Therapeutic Range: Adult: ?? 2.0 - 3.0 for pulmonary embolism or prophylaxis against venous ?thrombosis or systemic embolization. 2.0 - 3.0 for patients with tissue heart valves. 2.5 - 3.5 for patients with mechanical heart valves or post SC. Pediatric ??(12 years and under): 1.5 - 3.0 Although the target range in children is not well established, ?INR values of 1.5 - 3.0 are recommended for most patients. ?Higher values have been used in children with prosthetic ?cardiac valves and hereditary clotting disorders. (<3 days) therapeutic ranges have not been established. Blood specimen (specimen) 11/27/2013 3:00 PM WIRE FENCE BUILDER 11/27/2013 4:34 PM WIRE FENCE BUILDER Narrative [facility] - 11/27/2013 4:55 PM WIRE FENCE BUILDER 11 Andi Marley MD HEMATOLOGY ORDERABLE S Performing Organization Address [facility]/ZIP Co de Phone Number [facility]# [id number] [address] [place] [address] * TYPE AND CROSSMATCH (11/27/2013 3:00 PM WIRE FENCE BUILDER) SPECIMEN LIFE 3 days from OR date [facility] HISTORY CHECK No Historical ABO/Rh [facility] ABO/RH TYPE O Positive [facility] ANTIBODY SCREEN Negative [facility] Blood specimen (specimen) 11/27/2013 3:00 PM WIRE FENCE BUILDER 11/27/2013 4:34 PM WIRE FENCE BUILDER Andi Marley MD BLOOD BANK ORDERABLE S Performing Organization Address [facility]/ZIP Co de Phone Number [facility]# [id number] [address] [place] [address] * (ABNORMAL) BASIC METABOLIC PANEL (11/27/2013 3:00 PM WIRE FENCE BUILDER) SODIUM 138 135 - 145 mmol/L [facility] POTASSIUM 3.6 3.5 - 4.9 mmol/L [facility] CHLORIDE 98 96 - 108 mmol/L [facility] CO2 29 22 - 30 mmol/L [facility] CALCIUM 10.1 8.6 - 10.2 mg/dL [facility] BUN 20 6 - 20 mg/dL [facility] CREATININE 0.76 0.51 - 0.95 mg/dL [facility] GLUCOSE 146(H) 65 - 99 mg/dL [facility] GFR, >60 >=60 mL/min/1. 7 sq meter [facility] GFR >60 >=60 mL/min/1. 7 sq meter [facility] Comment: GFR is calculated using the IDMS-Traceable Modification of Diet in Renal Disease (MDRD) Study formula and is only valid for patients 18 years or older. Further interpretative information is available in the Laboratory Services Policy Manual on the [facility] Intranet at: [email or web address] Blood specimen (specimen) 11/27/2013 3:00 PM WIRE FENCE BUILDER 11/27/2013 4:34 PM WIRE FENCE BUILDER Andi Marley MD CHEMISTRY ORDERABLES [facility]# [id number] [address] [place] [address] * CBC WITH DIFFERENTIAL (11/27/2013 3:00 PM WIRE FENCE BUILDER) WBC 8.2 4.0 - 9.8 K/uL [facility] RBC 4.32 3.90 - 4.90 M/uL [facility] HEMOGLOBIN 12.9 11.8 - 14.8 g/dL [facility] HEMATOCRIT 39.4 35.5 - 44.0 % [facility] MCV 91.2 82.0 - 99.0 fL [facility] MCH 29.9 27.2 - 32.6 pg [facility] MCHC 32.7 31.5 - 35.5 % [facility] PLATELETS 295 140 - 350 K/uL [facility] MPV 11.7 9.3 - 12.4 CA [facility] RDW 13.4 11.5 - 14.5 % [facility] RDW-STDEV 44.3 37.1 - 48.7 CA [facility] NEUTROPHILS 62 45 - 70 % [facility] LYMPHOCYTES 28 16 - 45 % [facility] MONOCYTES 7 3 - 13 % [facility] EOSINOPHILS 3 0 - 7 % [facility] BASOPHILS 0 0 - 2 % [facility] NEUTROPHIL ABSOLUTE 5.11 1.90 - 7.00 K/uL [facility] LYMPHOCYTE ABSOLUTE 2.26 0.70 - 4.50 K/uL [facility] MONOCYTE ABSOLUTE 0.58 0.10 - 1.30 K/uL [facility] EOSINOPHIL ABSOLUTE 0.26 0.00 - 0.70 K/uL [facility] BASOPHILS ABSOLUTE 0.02 0.00 - 0.20 K/uL [facility] Blood specimen (specimen) 11/27/2013 3:00 PM WIRE FENCE BUILDER 11/27/2013 4:34 PM WIRE FENCE BUILDER Andi Marley MD HEMATOLOGY ORDERABLE S [facility] [id number] [address] [place] [address] * EKG 12-LEAD (11/27/2013 2:56 PM WIRE FENCE BUILDER) 11/27/2013 2:56 PM WIRE FENCE BUILDER Narrative INTERFACE SYSTEM - 11/28/2013 7:28 AM WIRE FENCE BUILDER ? Stationary ECG Study ? [facility] ? Test Date: ?11/27/2013 2:56:47 PM ? Pat Name: ? Elena Fernández ?Department: ?? 8 ?Room: ? Gender: ? F ?Assistant Chief Nursing Officer: ?? harrdd ? : ?1950 ? Requested by: Andi Ayaka L ? Order Number: [id number] ?Reading MD: ?? Diogenes Stickley ? Intervals ?[place] ? Rate: ? 87 ? P: ?64 ? [place]: ? 159 ?QRS: ?35 ? QRSD: ? 92 ? T: ?73 ? QT: ? 370 ? QTc: ?415 ? Interpretive Statements SINUS RHYTHM No previous ECG available for comparison Electronically Signed On 11-28-13 07:28:40 WIRE FENCE BUILDER by Diogenes Huynh Procedure Note Provider, Historical - 11/28/2013 Stationary ECG Study [facility] Test Date: 11/27/2013 2:56:47 PM Pat Name: Elena Fernández Department: 8 Room: Gender: F Assistant Chief Nursing Officer: juvenal : 1950 Requested by: Andi Wells Order Number: [id number] Fermín MD: Diogenes Huynh Intervals [place] Rate: 87 P: 64 [place]: 159 QRS: 35 QRSD: 92 T: 73 QT: 370 QTc: 415 Interpretive Statements SINUS RHYTHM No previous ECG available for comparison Electronically Signed On 11-28-13 07:28:40 WIRE FENCE BUILDER by Diogenes Huynh Andi Marley MD ECG ORDERABLES INTERFACE SYSTEM Refer to clinic/hospital department documented in this encounter Visit Diagnoses Not on filedocumented in this encounter Care Teams Ophthalmic Dispenser Relationship Specialty Start Date End Date Jareth Lopez MD [address] [place] [address] PCP - General Family Practice 04/11/13 documented as of this encounter
--- OUTSIDE RECORDS SUMMARY | 2024-09-27 17:41 | XMS_ITS | Encounter Summary ---
Author Organization [facility] Address [address] [place] [address] Care Team Providers Care Electric [employer] Salesperson Name Role Phone Jareth Lopez MD Primary Care Provider Encounter Details Date Type Department Care Team (Latest Contact Info) Description 12/21/2013 3:54 PM CDT - 12/21/2013 11:59 PM T Hospital Encounter [facility] [address] [place] [address] Andi Marley MD [address] [place] [address] Discharge Disposition: Home or Self [...] by mouth daily. L GASSERI/B BIFIDUM/B LONGUM ([facility] ORAL) Take by mouth. ondansetron (ZOFRAN ODT) 4 mg Tablet, Rapid Dissolve Place 1 Tab under tongue every 8 hours as needed for Nausea/Emesis. 16 Tab 0 12/14/2013 01/04/2014 oxyCODONE-acetaminophen (PERCOCET) 5-325 mg tablet Take 1-2 [...] daily. 06/05 documented as of this encounter Plan of Treatment Not on file documented as of this encounter Procedures Procedure Name Priority Date/Time Associated Diagnosis Comments CBC WITH DIFFERENTIAL Routine 12/21/2013 4:00 PM CDT Pancreas cyst COMPREHENSIVE METABOLIC PANEL Routine 12/21/2013 4:00 PM CDT Pancreas cyst documented in this encounter Results * (ABNORMAL) CBC WITH DIFFERENTIAL (12/21/2013 4:00 PM CDT) WBC 12.9(H) 4.0 - 9.8 K/uL [facility] RBC 4.39 3.90 - 4.90 M/uL [facility] HEMOGLOBIN 13.3 11.8 - 14.8 g/dL [facility] HEMATOCRIT 41.1 35.5 - 44.0 % [facility] MCV 93.6 82.0 - 99.0 fL [facility] MCH 30.3 27.2 - 32.6 pg [facility] MCHC 32.4 31.5 - 35.5 % [facility] PLATELETS 450(H) 140 - 350 K/uL [facility] MPV 11.1 9.3 - 12.4 fL [facility] RDW 13.7 11.5 - 14.5 % [facility] RDW-STDEV 46.1 37.1 - 48.7 fL [facility] NEUTROPHILS 74(H) 45 - 70 % [facility] LYMPHOCYTES 17 16 - 45 % [facility] . [facility] MONOCYTES 7 3 - 13 % [facility] . [facility] EOSINOPHILS 2 0 - 7 % [facility] . [facility] BASOPHILS 0 0 - 2 % [facility] . [facility] NEUTROPHIL ABSOLUTE 9.50(H) 1.90 - 7.00 K/uL [facility] LYMPHOCYTE ABSOLUTE 2.20 0.70 - 4.50 K/uL [facility] MONOCYTE ABSOLUTE 0.96 0.10 - 1.30 K/uL [facility] . [facility] EOSINOPHIL ABSOLUTE 0.22 0.00 - 0.70 K/uL [facility] . [facility] BASOPHILS ABSOLUTE 0.02 0.00 - 0.20 K/uL [facility] Blood specimen (specimen) 12/21/2013 4:00 PM CDT 12/22/2013 9:38 AM CDT Andi Marley MD HEMATOLOGY ORDERABLE S [facility]# [id number] [address] [place] [address] * (ABNORMAL) COMPREHENSIVE METABOLIC PANEL (12/21/2013 4:00 PM CDT) SODIUM 139 135 - 145 mmol/L [facility] POTASSIUM 4.2 3.5 - 4.9 mmol/L [facility] CHLORIDE 94(L) 96 - 108 mmol/L [facility] CO2 28 22 - 30 mmol/L [facility] CALCIUM 10.4(H) 8.6 - 10.2 mg/dL [facility] BUN 20 6 - 20 mg/dL [facility] CREATININE 0.83 0.51 - 0.95 mg/dL [facility] GLUCOSE 160(H) 65 - 99 mg/dL [facility] TOTAL PROTEIN 8.0 6.3 - 8.6 g/dL [facility] ALBUMIN 4.4 3.4 - 4.8 g/dL [facility] BILIRUBIN TOTAL 0.3 0.2 - 1.0 mg/dL [facility] ALKALINE PHOSPHATASE 75 35 - 104 U/L [facility] AST 22 12 - 32 U/L [facility] ALT 18 0 - 31 U/L [facility] GFR, >60 >=60 mL/min/1.7 sq meter [facility] GFR >60 >=60 mL/min/1.7 sq meter [facility] Comment: eGFR has not been validated [...] AM CDT Andi Marley MD CHEMISTRY ORDERABLES [facility]# [id number] [address] [place] [address] documented in this encounter Visit Diagnoses Diagnosis Pancreas cyst Cyst and pseudocyst of pancreas documented in this encounter Care Teams [employer] Salesperson Relationship Specialty Start Date End Date Jareth Lopez MD [address] [place] [id number] PCP - General Family Practice 04/11/13 documented as of this encounter
--- OUTSIDE RECORDS SUMMARY | 2024-09-27 17:41 | XMS_ITS | Encounter Summary ---
Author Organization [facility] Address [address] [place] [address] Care Team Providers Care Curing Supervisor Name Role Phone Jareth Lopez MD Primary Care Provider Reason for Visit * Reason Comments Follow Up Encounter Details Date Type Department Care Team (Late st Contact Info) Description 10/13/2013 10:00 AM EMERGENCY COMMUNICATIONS OFFICER Office Visit [facility] Surgical Spec [place] [address] [place] [address] Andi Marley MD [address] [place] [address] Pancreas cyst (Primary Dx) Social [...] Sign Reading Time Taken Comments Blood Pressure 144/81 10/13/2013 9:56 AM EMERGENCY COMMUNICATIONS OFFICER Pulse 105 10/13/2013 9:56 AM EMERGENCY COMMUNICATIONS OFFICER Temperature - - Respiratory Rate 20 10/13/2013 9:56 AM EMERGENCY COMMUNICATIONS OFFICER Oxygen Saturation - - Inhaled Oxygen Concentration - - Weight 85.7 kg (189 lb) 10/13/2013 9:56 AM EMERGENCY COMMUNICATIONS OFFICER Height 165.1 cm (5' 5 ) 10/13/2013 9:56 AM EMERGENCY COMMUNICATIONS OFFICER Body Mass Index 31.45 10/13/2013 9:56 AM EMERGENCY COMMUNICATIONS OFFICER documented in this encounter Progress Notes * Andi Marley MD - 10/16/2013 5:48 PM CST Subjective: 62-year-old female who follows up [...] eyed/glaucoma ??? Hx appendectomy ??? Hx section 1971 1976 ??? Hx sinus surgery ??? Hx [...] the procedure and is willing to proceed. GENCY COMMUNICATIONS OFFICER documented in this encounter Plan of Treatment Not on file documented as of this encounter Visit Diagnoses Diagnosis Pancreas cyst- Primary Cyst and pseudocyst of pancreas documented in this encounter Care Teams Curing Supervisor Relationship Specialty Start Date End Date Jareth Lopez MD [address] [place] [address] PCP - General Family Practice 04/11/13 documented as of this encounter
--- OUTSIDE RECORDS SUMMARY | 2024-09-27 17:41 | XMS_ITS | Encounter Summary ---
Author Organization [facility] Address [address] [place] [address] Care Team Providers Care Director Of Casino Marketing Name Role Phone Jareth Lopez MD Primary Care Provider Reason for Visit * Auth/Cert - Closed Specialty Diagnoses / Procedures Referred By Contac t Referred To Contact General Surgery Procedures [facility] [place] [address] [place] [address] Referral ID Status Reason Start Date Expiration Date Visits Re quested Visits Authorized [id number] Closed 1 1 Encounter Details Date Type Department Care Team (Latest Contact Info) Description 12/04/2013 4:51 AM HEAD BANDER AND LINER OPERATOR - 12/10/2013 10:09 AM CDT Hospital Encounter [facility] [address] [place] [address] Ann Griggs MD [address] [facility] [address] [place] [address] Hypertension Discharge Disposition: Home or Self Care Social [...] Sign Reading Time Taken Comments Blood Pressure 160/66 12/10/2013 8:36 AM CDT Pulse 99 12/10/2013 8:36 AM CDT Temperature 36.5 ??C (97.7 ??F) 12/10/2013 8:36 AM CD T Respiratory Rate 18 12/10/2013 8:36 AM CDT Oxygen Saturation 99% 12/10/2013 8:36 AM CDT Inhaled Oxygen Concentration - - Weight 88.5 kg (195 lb) 12/06/2013 4:00 AM HEAD BANDER AND LINER OPERATOR Height 163.8 cm (5' 4.5 ) 11/27/2013 3:20 PM HEAD BANDER AND LINER OPERATOR Body Mass Index 32.95 11/27/2013 3:20 PM HEAD BANDER AND LINER OPERATOR documented in this encounter Discharge Summaries * Ann Griggs MD - 12/10/2013 8:37 AM CDT Patient: Rebel Fernández / 63 y.o. / female : 1950 Admit date: 12/04/2013 Discharge date: 12/10/2013 Admission Dx: Patient Active Problem List Diagnosis Code ??? 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 Hypertension 401.9 ??? Diabetes mellitus 250.00 ??? GERD (gastroesophageal reflux disease) 530.81 ??? Hyperlipidemia 272.4 ??? Elevated LFTs 790.6 ??? Electrolyte imbalance 276.9 Discharge Dx: Same as problem list. Attending Physician: Dr. nAn Griggs Procedures: Procedure(s): [facility] Course: underwent mayetta and was d/c'd POD 6 Discharge Condition: [...] to home 2. Follow-up two weeks Office- [phone] 3. May shower without restrictions. No tub [...] not uncommon. The patient may take any ogei-pmw-xgfrdra medication(s) that have worked previously to correct [...] to call the office for postoperative appointment ([phone]). The patient will need to be seen [...] by mouth daily. L GASSERI/B BIFIDUM/B LONGUM (RunAlong ORAL) Take by mouth. oxyCODONE-acetaminophen (PERCOCET) 5-325 [...] RN - 12/10/2013 9:07 AM CDT Rebel Fernández will be discharged via wheelchair to home. Rebel Fernández is accompanied by spouse andwill be transported [...] 2.8- replace with iv and po kcl BANDER AND LINER OPERATOR * Ann Griggs MD - 2013 7:29 AM CST Min nausea, no emesis, + BM AVSS abd soft, nd, inc c/d/i Drains serosang Wbc 10 POD 5 Inc diet OOB Likely home w/in the next day or two Ayaka BANDER AND LINER OPERATOR * Jillian Gonzalez MD - 12/08/2013 11:37 AM CST [facility] Hospitalist Progress Note Admit Date: [...] the following: . Jillian Gonzalez MD MD [facility] Hospitalist [phone] BANDER AND LINER OPERATOR * Ann Griggs MD - 12/08/2013 8:00 AM CST C/o RUQ pain this am relieved with +flatus/BM Afeb, VSS abd soft, nd Inc c/d/i Drains serosang POD 4 Trial full liquids OOB D/c epidural, d/c lorenzo 6 hrs after BANDER AND LINER OPERATOR * Jamar Syed MD - 12/07/2013 5:56 PM CST Patient alert and up in chair. Epidural site hurts when laying in bed but not when up walking around. This was checked by Noman WOODS earlier in the day. No erythema. Pain control good. Wiggles feet well. Itching no longer bothersome. Continue epidural till tomorrow. BANDER AND LINER OPERATOR * Jillian Gonzalez MD - 12/07/2013 10:31 [...] now as she is npo, cont SSI BANDER AND LINER OPERATOR * Ann Griggs MD - 12/07/2013 6:44 AM CST BS better controlled Pain is a 6 of 10 Afeb, VSS abd soft, nd NGT bilious Drains serosang POD 3 Clamping trial NGT OOB Cont epidural another day Cont lorenzo 2/2 epirual BANDER AND LINER OPERATOR * Jillian Gonzalez MD - 12/06/2013 8:16 PM CST [facility] Hospitalist Progress Note Admit Date: 12/04/2013 Date [...] kcl On prophy heparin per primary team Lorenzo present Full code Current Planned Disposition - [...] the following: . Jillian Gonzalez MD MD [facility] Hospitalist [phone] BANDER AND LINER OPERATOR * Yi Mckee RN - 12/05/2013 3:17 PM CST Undress and Assess performed by ADRIAN stallworth and does not have skin breakdown. Wound care consult was notinitiated. Abdominal surgical sites covered by dressing; c/d/i. BANDER AND LINER OPERATOR * Maile West MD - 12/05/2013 11:06 AM CST 12/05/2013 11:06 AM Acute Pain Service Name: Rebel Fernández Age: 62 y.o. Sex: female CSN: [id number] POD # 1. Rebel is doing well, [...] po and NGT out.. Maile West MD BANDER AND LINER OPERATOR * Ann Griggs MD - 12/05/2013 11:03 AM CST No issues o/n AVSS u/o adequate abd soft, nd Inc c/d/i Drains serosang hgb stable POD 1 OOICU to 4th floor surgery only, my service hospitalist c/s Cont drains/NGT/lorenzo/epidural Lorenzo needed 2/2 epidural Ayaka BANDER AND LINER OPERATOR * Ann Muhammad DO - 12/05/2013 7:52 AM CST [facility] Transfer Note 12/05/2013 7:52 AM Patient transferring to Medicine Physician /PA/ CRYSTAL FLAT GRINDER Communication: Ann Muhammad DO to Physician Date/Time: 12/05/13 at 0810 Is the accepting physician aware that patient needs to be seen on day of transfer? yes (regarding patient's not seen by [facility] attending prior to transfer) Family Member Communication: Physician to patient; Relationship to patient: patient Transfer orders have been reviewed with the RN and the team caring for the patient: yes Any special needs for this patient? no If yes, describe: Attending Physician changed to accepting Hospitalist, if applicable: N/A BANDER AND LINER OPERATOR * Ann Muhammad DO - 12/05/2013 7:31 AM CST CRITICAL CARE MEDICINE DAILY PROGRESS NOTE ICU Timeline: Rebel Fernández is a 62 y.o. female admitted 12/04/2013 [...] hospitalist consult for diabetic management per Dr. Ayaka ACKERMAN- Pepcid BID Diverticulosis- Stable NG tube in [...] edema noted. Data Review: BMP: Recent Labs 12/05/13414 GLUCOSE 156* BUN 22* CREAT 0.87 NA 141 K 4.0 CL 104 CO2 29 estimated creatinine clearance is 73.6 ml/min (based on Cr of 0.87). LFTs: Recent Labs 12/05/135 ALKPHOS 37 ALT 130* AST 118* BILITOTAL 0.4 ALBUMIN 3.5 CBC: Recent Labs 12/05/13414 WBC 13.3* HGB 10.9* HCT 33.6* PLT 236 MCV 93.3 Coagulation: No results found for this basename: PT, INR, APTT, in the last 72 hours ABG: No results found for this basename: PHARTERIAL, TXV1JRF, PO2ART, ICX0ZYY, BASEEXCESS, SO2ABG, FOHBABG Central VBG: No results found for this basename: PHMIXEDVEN, XR1MFGMVZT, UIZ9KPJUMB, ZXZ0PBLJP, GB4FCGN Lactic acid: No results found for this basename: LACTATE Radiology: n/a BANDER AND LINER OPERATOR * Clara Diaz RN - 12/04/2013 2:00 PM CST Undress and Assess performed by: Clara Diaz RN & Celia Mcgrath RN does not have skin breakdown. Location of breakdown: Description of breakdown: Wound care consult was not initiated. BANDER AND LINER OPERATOR documented in this encounter H&P Notes * Ann Muhammad DO - 12/04/2013 3:47 PM CST CRITICAL CARE MEDICINE HISTORY & PHYSICAL Reason for ICU admission: Whipple Surgery HPI: Rebel Fernández is a 62 y.o. female admitted 12/04/2013 [...] No results found for this basename: PHARTERIAL, JRI2WZJ, PO2ART, CUD2LGG, BASEEXCESS, SO2ABG, FOHBABG Central VBG: No results found for this basename: PHMIXEDVEN, ZA5ZMXLUWI, PRH7QMTXBO, RGM7JYBWT, GM5UWNM Lactic acid: No results found for this [...] above with Fellow, who is in agreement BANDER AND LINER OPERATOR * Ann Griggs MD - 12/04/2013 6:40 [...] the procedure and is willing to proceed. BANDER AND LINER OPERATOR documented in this encounter Consult Notes * Saima Tian RN - 2013 4:42 PM CSTAssociated Order(s): IP CONSULT TO IV TEAM IV CONSULT: Request for IV consult. Reviewed electronic record and completed a vascular assessment. PIV startedand documented in EPIC. PIV is appropriate at this time. Bed in low position,HOB up 35 degrees,?? side rails up X2. Safety check completed. RN notified. ?? BANDER AND LINER OPERATOR * Jillian Gonzalez MD - 12/05/2013 12:23 PM CSTAssociated Order(s): IP CONSULT TO INTERNAL MEDICINE [facility] Hospitalist Consultation Consult requested by Ann Humphreys MD Patient Name: Rebel Fernández Primary Care Physician: Jareth Lopez MD Date [...] am On prophy heparin per primary team Lorenzo present Full code Plan d/w pt and [...] WHIPPLE performed by Ann Griggs MD at [facility] OR MAIN Current Medications: Current Facility-Administered Medications Medication Dose Route Frequency Provider Last Rate Last Dose ??? insulin aspart (NOVOLOG) 100 unit/mL variable dose subCUT PC TID Ann Muhammad, DO ??? diphenhydrAMINE (BENADRYL) injection 12.5 mg [...] injection 20 mg 20 mg IV BID Ann Griggs MD 20 mg at 12/05/13 0904 ??? [...] wheezing Cardiac: No CP, SOB, History of NE or angina GI: abd pain controlled : [...] 11/27/2013 3:00 PM Thank you for consulting [facility] Hospitalists for this interesting case. I have taken the liberty of writing orders consistent with my recommendations. We will gladly follow the patient throughout their stay. Jillian Gonzalez MD BANDER AND LINER OPERATOR documented in this encounter OR Notes * Operative Report - Ann Griggs MD - 12/22/2013 7:01 PM CDT [place], [place] [address] Operative Report CSN: [id number] DATE OF SERVICE: 12/04/2013 SURGEON Ann Griggs [...] and followed this up to the superior mesentericvein. Plane was entered of the superior mesenteric [...] uncinate process, I did not feel like Ihad to do a high portal dissection, so I stayed inferior to the edges of the cystic duct onto the bile duct and subsequently identified the cystic artery and cystic duct and clipped and transected these. I then the lymphadenopathy from the lateral aspect of the portal vein and the lateralaspect of the bile duct. I then dissected out the lesser omentum and divided the hepatogastric ligament. The right gastric artery and vein were then individually identified and ligated with Harmonic Scalpel. Dissection proceeded on the lateral aspect of the hepatic artery in order to identify the 3and 6 o'clock arteries of the bile duct, which were subsequently transected with a Harmonic scalpel. The bile duct and transected and a bulldog clamp was placed on the proximal aspect and a pursestring 2-0 silk suture was then used to close off the distal aspect of the bile duct. I then dissected on the anterior aspect of the portal vein to identify the gastroduodenal artery and duodenum vein andthey were subsequently individually ligated with interrupted 3-0 [...] pancreatic neck. The stomach was then transected at its junction between the antrum and body with a ALEXIS 80-mm green stapler and the lesser and greater om entums were then transected with the LigaSure. I [...] placed pursestring sutures at the 4 corners of the pancreatic neck and transected the pancreatic neck [...] tumor inferiorly, so I started inferiorly and tookthe uncinate process with the LigaSure and this [...] jejunotomy was created and an end-to-side hepaticojejunostomy wascreated with interrupted 5-0 PDS sutures with the [...] Distal to the ligament of Treitz, approximately 20 to 30 cm, I was able to satisfactorily piece the jejunum for a gastrojejunostomy and the transverse mesocolon was then incised and the jejunum brought through this in a retrocolic fashion. The staple line of the stomach was then oversewn with a running 3-0 Maxon suture in the superior half. The staple line in the inferior half was then excised and the next step in the procedure was then to excise the staple line of the stomach and create a longitudinal jejunotomy and an end-to-side gastrojejunostomy was completed with interrupted 3-0 silk sutures with full-thickness bites with the posterior rowhaving knots on the inside and the anterior [...] recovery room in stable condition. RLN:MEDQ DID: [id number] Dictated by: Ann Griggs M.D. * Operative Report - Ann Griggs MD - 12/20/2013 11:13 AM CDT [place], [place] [address] Operative Report CSN: [id number] DATE OF SERVICE: 12/04/2013 SURGEON Ann Griggs [...] with a pursestring 3-0 silk suture. I thenligated attachments to the ligament of Treitz, and the jejunal mesentery with a combination of LigaSure and Harmonic Scalpel in order to flip the jejunum up into the right upper quadrant. Transverse colon was then retracted inferiorly and I was then able to reflect the uncinate process of the pancreas off of the superior mesenteric vein and ligated the inferior pancreaticoduodenal vein with interrupted 3-0 silk ties and transected this. I then ligated the branch of the right gastroepiploic veinwith interrupted 3-0 silk ties and transected this. [...] with hemostats and 3-0 silk suture ligatures. Ithen continued to dissect the mucinous neoplasm away from the portal vein. This was a clean plane off of the superior mesenteric artery, and subsequently this inferior pancreaticoduodenal artery was identified in the uncinate process and transected with a Harmonic scalpel. There was no evidence of bleeding. At this point, I then continued to dissect the rest of the retroperitoneal attachments of the uncinate process and specimen was freed. At this point, there was no gross evidence of uncinate process left behind and there was good palpation of pulse to the superior mesenteric artery. Superior mesenteric vein and portal vein were not narrowed and I then proceeded with reconstruction. The jejunum was then brought up through ligament of Treitz and a Blumgart style pancreaticojejunostomy wasperformed with interrupted 3-0 Maxon sutures x5, placed [...] placed through the mucosa of the jejunum into the duct of the pancreas. At this point, once the mucosal to duct anastomosis was complete, the anterior layer of the jejunum was brought over to the anterior aspect of the pancreas with a 3-0 Maxon and this completed my pancreaticojejunostomy. Bull dog clamp was then removed from the bile duct and a duct to mucosa well- vascularized tension-free hepaticojejunostomy was performed with interrupted 5-0 Maxon sutures for a total 8 sutures being placed with 4 sutures being placed in the posterior rowand 4 sutures being placed on the anterior row with an anterior row having knots on the inside and the posterior row having knots on the inside. Jejunum was then tacked up to the gallbladder fossa with interrupted 4-0 PDS sutures to alleviate any tension on the anastomoses and subsequently the jejunum was brought up distal to the ligament of Treitz approximately 40 cm for a gastrojejunostomy. Thestaple line on the inferior aspect of the stomach was excised and the longitudinal jejunotomy was created and a hand-sewn well- vascularized tension-free anastomosis was completed with a single layer i nterrupted 3-0 silk sutures in order to restore [...] recovery room in stable condition. RLN:MEDQ DID: [id number] Dictated by: Ann Griggs M.D. * OR Anesthesia - Jamar Syed MD - 12/08/2013 9:12 AM CST 12/08/2013 9:12 AM Acute Pain Service Name: Rebel Fernández Age: 63 y.o. Sex: female CSN: [id number] POD # 4 Epidural Infusing Pain scale [...] Acute Pain Service may be contacted through [employer] phones [phone] during daytime resourcehours, or pager [phone] at any time. If there is no answer within 20 minutes, call [phone] for the Anesthesiologist operations research scientist. Jamar Syed MD BANDER AND LINER OPERATOR * OR Anesthesia - Joe Sanchez PA - 12/07/2013 8:01 AM CST Rebel Fernández POD # 3 Epidural Infusing at 5 [...] (*) 65 - 99 mg/dL CLIA LICENSE [id number] POC GLUCOSE Result Value Range POC GLUCOSE 154 (*) 65 - 99 mg/dL CLIA LICENSE [id number] POC GLUCOSE Result Value Range POC GLUCOSE 155 (*) 65 - 99 mg/dL CLIA LICENSE [id number] POC GLUCOSE Result Value Range POC GLUCOSE 137 (*) 65 - 99 mg/dL CLIA LICENSE [id number] Continue epidural at 5 cc/hr Discussed the [...] 8:32 AM Acute Pain Service Name: Rebel Fernández Age: 62 y.o. Sex: female CSN: [id number] POD # 2 Epidural Infusing at 5 [...] after NGT is out and tolerating PO. KRISTINA Cortez Although patient is having some itching, but is happy with taking the benadryl. She is alert and with good pain control. Will leave epidural at current rate BANDER AND LINER OPERATOR * Anesthesia Handoff - Bria Jacobson CRNA [...] 11:45 AM) 11:51 AM Bria Jacobson CRNA BANDER AND LINER OPERATOR * OR Anesthesia - Maile West MD [...] mL as BP tolerates. Maile West MD BANDER AND LINER OPERATOR documented in this encounter Miscellaneous Notes * Query - Shannon Hart - 12/12/2013 7:20 AM CDT Please respond within 48 hours. Thank you! The authenticated query note is part of the Legal Health Record Patient Name: Rebel Fernández Admission Date: 12/04/2013 Hospital [facility] #: [id number] Dear Doctor, Note: To answer the following question(s), please click F2 in front of the highlighted area(s). Question: Because bedside physician/CRYSTAL FLAT GRINDER/PA must provide clarification of pathological findings priorto [...] this coding query please contact me at [email or web address] or [phone] * Care Plan - Clara Doty RN - 12/10/2013 4:40 AM CDT Problem: General Plan of Care (Adult, Obstetrics) Goal: Individualization/Patient-Specific Goal (Adult, Obstetrics) The patient and/or their off premise service representative will achieve their patient-specific goals related [...] Goal (Adult, Obstetrics) The patient and/or their off premise service representative will achieve their patient-specific goals related [...] pain medication once and she took Percocet. BANDER AND LINER OPERATOR * Care Plan - Clara Doty RN - 2013 5:21 AM CST Problem: General Plan of Care (Adult, Obstetrics) Goal: Individualization/Patient-Specific Goal (Adult, Obstetrics) The patient and/or their off premise service representative will achieve their patient-specific goals related [...] other issues overnight. Call light within reach. BANDER AND LINER OPERATOR * Care Plan - Samatnha Perez RN - 12/08/2013 4:07 PM CST Problem: General Plan of Care (Adult, Obstetrics) Goal: Plan of Care Review (Adult, Obstetrics) The patient and/or their off premise service representative will communicate an understanding of their [...] sign on door, stand-by assist when ambulating. BANDER AND LINER OPERATOR * Care Plan - Carolyn Lei, RD - 12/08/2013 10:30 AM CST Nutrition diet screen: Rebel Fernández is a 63 y.o. female admitted for [...] full liq PO intake: 90% x1 LBM 3/7 Pt states she needs sugar free liquids since she is diabetic. States she drinks Glucerna once/day at home. Appetite fair. Plan: Send Glucerna at lunch As diet advances will add diabetic restriction Continue to monitor po intake, wts, labs, skin and f/u q4days/prn BANDER AND LINER OPERATOR * Care Plan - Roddy Marley RN - 12/08/2013 5:49 AM CST Problem: General Plan of Care (Adult, Obstetrics) Goal: Individualization/Patient-Specific Goal (Adult, Obstetrics) The patient and/or their off premise service representative will achieve their patient-specific goals related [...] bed, and Preventing Falls education handout reviewed. BANDER AND LINER OPERATOR * Care Plan - Brea Galan RN - 12/07/2013 5:49 PM CST Problem: General Plan of Care (Adult, Obstetrics) Goal: Individualization/Patient-Specific Goal (Adult, Obstetrics) The patient and/or their off premise service representative will achieve their patient-specific goals related [...] in good spirits. Will continue to monitor. BANDER AND LINER OPERATOR * Care Plan - Roddy Marley RN - 12/07/2013 8:15 AM CST Problem: General Plan of Care (Adult, Obstetrics) Goal: Individualization/Patient-Specific Goal (Adult, Obstetrics) The patient and/or their off premise service representative will achieve their patient-specific goals related to the plan of care. The patient-specific goals include: Rebel will have pain controlled with po medication and be free from s/s of infection. Outcome: Progressing Reble's pain has been well controled with her epidural. NG was at low intermittent suction throughout the night. This A.M. Clamp trial started. Slept between care throughout the night. Call light and personal items within reach. BANDER AND LINER OPERATOR * Care Plan - Brea Galan RN - 12/06/2013 5:55 PM CST Problem: General Plan of Care (Adult, Obstetrics) Goal: Individualization/Patient-Specific Goal (Adult, Obstetrics) The patient and/or their off premise service representative will achieve their patient-specific goals related [...] has increased ambulation. Will continue to monitor. BANDER AND LINER OPERATOR * Care Plan - Anupam Marley RN [...] admitted through same day surgery. Patient s/p Monica 12/04/13. Prior to admission, patient's functional level was independent. PCP verified as Dr. Lopez. Discussed discharge goals and possible discharge needs. Post hospital disposition is likely home. No discharge needs were identified at this time. Care Management contact information provided. Care Management will continue to follow and assist asneeded. Anupam Marley RN BSN Care Management [id number] BANDER AND LINER OPERATOR * Care Plan - Kay Hollingsworth RN - 12/06/2013 6:11 AM CST Problem: General Plan of Care (Adult, Obstetrics) Goal: Individualization/Patient-Specific Goal (Adult, Obstetrics) The patient and/or their off premise service representative will achieve their patient-specific goals related [...] get up later this AM and walk. BANDER AND LINER OPERATOR * Care Plan - Yi Mckee RN - 12/05/2013 4:36 PM CST Problem: General Plan of Care (Adult, Obstetrics) Goal: Individualization/Patient-Specific Goal (Adult, Obstetrics) The patient and/or their off premise service representative will achieve their patient-specific goals related [...] bed, and Preventing Falls education handout reviewed. BANDER AND LINER OPERATOR * Care Plan - Federico Byrd RN - 12/05/2013 1:53 PM CST Pt. Arrived to room 662 from 490 stable and un changed. Per Dr. Griggs's note pt. Trans. To room 44, report called to Adrian STALLWORTH. BANDER AND LINER OPERATOR * Care Plan - Sidney Tatum RN [...] Monitoring I&O's and lab values. Monitoring temps. BANDER AND LINER OPERATOR * Care Plan - Clara Diaz RN [...] DEC. Pt drowsy but awakens to voice. BANDER AND LINER OPERATOR * Care Plan - Nevaeh Bazzi RN [...] perioperative experience Outcome Met: Pt/family understands instructions BANDER AND LINER OPERATOR documented in this encounter Plan of Treatment Not on file documented as of this encounter Procedures Procedure Name Priority Date/Time Associated Diagnosis Comments TELEMETRY REPORT 12/19/2013 5:32 PM CDT POC GLUCOSE Routine 12/10/2013 8:34 AM CDT BASIC METABOLIC PANEL Routine 12/10/2013 4:50 AM CDT POC GLUCOSE Routine 2013 8:50 PM HEAD BANDER AND LINER OPERATOR POC GLUCOSE Routine 2013 5:08 PM HEAD BANDER AND LINER OPERATOR POC GLUCOSE Routine 2013 2:04 PM HEAD BANDER AND LINER OPERATOR POC GLUCOSE Routine 2013 9:37 AM HEAD BANDER AND LINER OPERATOR CBC WITH DIFFERENTIAL Routine 2013 4:37 AM HEAD BANDER AND LINER OPERATOR BASIC METABOLIC PANEL Routine 2013 4:37 AM HEAD BANDER AND LINER OPERATOR POC GLUCOSE Routine 12/08/2013 9:18 PM HEAD BANDER AND LINER OPERATOR POC GLUCOSE Routine 12/08/2013 5:51 PM HEAD BANDER AND LINER OPERATOR POC GLUCOSE Routine 12/08/2013 1:43 PM HEAD BANDER AND LINER OPERATOR CBC WITH DIFFERENTIAL Routine 12/08/2013 11:20 AM HEAD BANDER AND LINER OPERATOR POC GLUCOSE Routine 12/08/2013 5:29 AM HEAD BANDER AND LINER OPERATOR POC GLUCOSE Routine 12/07/2013 11:24 PM HEAD BANDER AND LINER OPERATOR POC GLUCOSE Routine 12/07/2013 5:52 PM HEAD BANDER AND LINER OPERATOR POC GLUCOSE Routine 12/07/2013 12:44 PM HEAD BANDER AND LINER OPERATOR CBC WITH DIFFERENTIAL Routine 12/07/2013 6:12 AM HEAD BANDER AND LINER OPERATOR COMPREHENSIVE METABOLIC PANEL Routine 12/07/2013 6:12 AM HEAD BANDER AND LINER OPERATOR POC GLUCOSE Routine 12/07/2013 5:44 AM HEAD BANDER AND LINER OPERATOR POC GLUCOSE Routine 12/07/2013 12:50 AM HEAD BANDER AND LINER OPERATOR POC GLUCOSE Routine 12/06/2013 6:47 PM HEAD BANDER AND LINER OPERATOR POC GLUCOSE Routine 12/06/2013 12:12 PM HEAD BANDER AND LINER OPERATOR CBC WITH DIFFERENTIAL Routine 12/06/2013 5:25 AM HEAD BANDER AND LINER OPERATOR COMPREHENSIVE METABOLIC PANEL Routine 12/06/2013 5:25 AM HEAD BANDER AND LINER OPERATOR POC GLUCOSE Routine 12/06/2013 5:11 AM HEAD BANDER AND LINER OPERATOR POC GLUCOSE Routine 12/05/2013 11:13 PM HEAD BANDER AND LINER OPERATOR POC GLUCOSE Routine 12/05/2013 5:09 PM HEAD BANDER AND LINER OPERATOR POC GLUCOSE Routine 12/05/2013 1:01 PM HEAD BANDER AND LINER OPERATOR POC GLUCOSE Routine 12/05/2013 9:10 AM HEAD BANDER AND LINER OPERATOR CBC WITH DIFFERENTIAL Routine 12/05/2013 4:15 AM HEAD BANDER AND LINER OPERATOR COMPREHENSIVE METABOLIC PANEL Routine 12/05/2013 4:15 AM HEAD BANDER AND LINER OPERATOR POC GLUCOSE Routine 12/05/2013 4:06 AM HEAD BANDER AND LINER OPERATOR POC GLUCOSE Routine 12/04/2013 11:16 PM HEAD BANDER AND LINER OPERATOR POC GLUCOSE Routine 12/04/2013 8:15 PM HEAD BANDER AND LINER OPERATOR POC GLUCOSE Routine 12/04/2013 5:57 PM HEAD BANDER AND LINER OPERATOR PATHOLOGY Routine 12/04/2013 12:33 PM HEAD BANDER AND LINER OPERATOR POC GLUCOSE Routine 12/04/2013 11:48 AM HEAD BANDER AND LINER OPERATOR POC GLUCOSE Routine 12/04/2013 7:11 AM HEAD BANDER AND LINER OPERATOR HOLDENIPPLE 12/04/2013 6:55 AM HEAD BANDER AND LINER OPERATOR Case Notes JOSE RAFAEL, [id number] YULIANA Jalen [id number] documented in this encounter Results * TELEMETRY REPORT (12/19/2013 5:32 PM CDT) Provider Scanning ECG ORDERABLES * (ABNORMAL) POC GLUCOSE (12/10/2013 8:34 AM CDT) GLUCOSE POC 171(H) 65 - 99 mg/dL INTERFACE SYSTEM CLIA LICENSE [id number] [facility]F [facility] SYSTEM Blood specimen (specimen) 12/10/2013 8:34 AM CDT 12/10/2013 8:34 AM CDT Ann Griggs MD POINT OF CARE TESTIN G INTERFACE SYSTEM Refer to clinic/hospital department * (ABNORMAL) BASIC METABOLIC PANEL (12/10/2013 4:50 AM CDT) SODIUM 138 135 - 145 mmol/L [facility] POTASSIUM 3.7 3.5 - 4.9 mmol/L [facility] CHLORIDE 100 96 - 108 mmol/L [facility] CO2 28 22 - 30 mmol/L [facility] CALCIUM 9.1 8.6 - 10.2 mg/dL [facility] BUN 11 6 - 20 mg/dL [facility] CREATININE 0.73 0.51 - 0.95 mg/dL [facility] GLUCOSE 149(H) 65 - 99 mg/dL [facility] GFR, >60 >=60 mL/min/1. 7 sq meter [facility] - [facility] GFR >60 >=60 mL/min/1. 7 sq meter [facility] Comment: GFR is calculated using the IDMS-Traceable Modification of Diet in Renal Disease (MDRD) Study formula and is only valid for patients 18 years or older. Further interpretative information is available in the Laboratory Services Policy Manual on the [facility] Intranet at: [email or web address] hospitalPushCall[facility]aritan [facility]/ Blood specimen (specimen) 12/10/2013 4:50 AM CDT 12/10/2013 5:45 AM CDT Jillian Gonzalez MD CHEMISTRY ORDERABLES [facility] CLIA# [id number] [place] [address] * (ABNORMAL) POC GLUCOSE (2013 8:50 PM HEAD BANDER AND LINER OPERATOR) GLUCOSE POC 161(H) 65 - 99 mg/dL INTERFACE SYSTEM CLIA LICENSE [id number] INTERF [facility] SYSTEM Blood specimen (specimen) 2013 8:50 PM HEAD BANDER AND LINER OPERATOR 2013 8:50 PM HEAD BANDER AND LINER OPERATOR Ann Griggs MD POINT OF CARE TESTFREDI G Performing Organization Address [facility] Co de Phone Number INTERFACE SYSTEM Refer to clinic/hospital department * (ABNORMAL) POC GLUCOSE (2013 5:08 PM HEAD BANDER AND LINER OPERATOR) GLUCOSE POC 169(H) 65 - 99 mg/dL INTERFACE SYSTEM CLIA LICENSE [id number] INTERF [facility] SYSTEM Blood specimen (specimen) 2013 5:08 PM HEAD BANDER AND LINER OPERATOR 2013 5:08 PM HEAD BANDER AND LINER OPERATOR Ann Griggs MD POINT OF CARE TESTIN G Performing Organization Address [facility] Co de Phone Number INTERFACE SYSTEM Refer to clinic/hospital department * (ABNORMAL) POC GLUCOSE (2013 2:04 PM HEAD BANDER AND LINER OPERATOR) GLUCOSE POC 160(H) 65 - 99 mg/dL INTERFACE SYSTEM CLIA LICENSE [id number] INTERF YANY SYSTEM Blood specimen (specimen) 2013 2:04 PM HEAD BANDER AND LINER OPERATOR 2013 2:04 PM HEAD BANDER AND LINER OPERATOR Ann Griggs MD POINT OF CARE TESTFREDI G Performing Organization Address City/[facility] Co de Phone Number INTERFACE SYSTEM Refer to clinic/hospital department * (ABNORMAL) POC GLUCOSE (2013 9:37 AM HEAD BANDER AND LINER OPERATOR) GLUCOSE POC 144(H) 65 - 99 mg/dL INTERFACE SYSTEM CLIA LICENSE [id number] INTERF [facility] SYSTEM Blood specimen (specimen) 2013 9:37 AM HEAD BANDER AND LINER OPERATOR 2013 9:37 AM HEAD BANDER AND LINER OPERATOR Ann Griggs MD POINT OF CARE TESTIN Danilo INTERFACE SYSTEM Refer to clinic/hospital department * (ABNORMAL) CBC WITH DIFFERENTIAL (2013 4:37 AM HEAD BANDER AND LINER OPERATOR) WBC 10.6(H) 4.0 - 9.8 K/uL [facility] RBC 4.00 3.90 - 4.90 M/uL [facility] HEMOGLOBIN 12.0 11.8 - 14.8 g/dL [facility] HEMATOCRIT 35.9 35.5 - 44.0 % [facility] MCV 89.8 82.0 - 99.0 fL [facility] MCH 30.0 27.2 - 32.6 pg [facility] MCHC 33.4 31.5 - 35.5 % [facility] PLATELETS 347 140 - 350 K/uL [facility] MPV 10.7 9.3 - 12.4 fL [facility] RDW 13.1 11.5 - 14.5 % [facility] RDW-STDEV 42.6 37.1 - 48.7 fL [facility] NEUTROPHILS 72(H) 45 - 70 % [facility] LYMPHOCYTES 13(L) 16 - 45 % [facility] MONOCYTES 11 3 - 13 % [facility] EOSINOPHILS 3 0 - 7 % [facility] BASOPHILS 0 0 - 2 % [facility] NEUTROPHIL ABSOLUTE 7.66(H) 1.90 - 7.00 K/uL [facility] LYMPHOCYTE ABSOLUTE 1.34 0.70 - 4.50 K/uL [facility] MONOCYTE ABSOLUTE 1.21 0.10 - 1.30 K/uL [facility] EOSINOPHIL ABSOLUTE 0.35 0.00 - 0.70 K/uL [facility] - [facility] BASOPHILS ABSOLUTE 0.01 0.00 - 0.20 K/uL [facility] Blood specimen (specimen) 2013 4:37 AM HEAD BANDER AND LINER OPERATOR 2013 5:34 AM HEAD BANDER AND LINER OPERATOR Ann Griggs MD HEMATOLOGY ORDERABLE S [facility] CLIA# [id number] [address] [facility] [place] [place] [address] * (ABNORMAL) BASIC METABOLIC PANEL (2013 4:37 AM HEAD BANDER AND LINER OPERATOR) SODIUM 140 135 - 145 mmol/L [facility] POTASSIUM 2.8(L) 3.5 - 4.9 mmol/L [facility] CHLORIDE 98 96 - 108 mmol/L [facility] CO2 26 22 - 30 mmol/L [facility] CALCIUM 9.4 8.6 - 10.2 mg/dL [facility] BUN 6 6 - 20 mg/dL [facility] CREATININE 0.72 0.51 - 0.95 mg/dL [facility] GLUCOSE 160(H) 65 - 99 mg/dL [facility] GFR, >60 >=60 mL/min/1. 7 sq meter [facility] GFR >60 >=60 mL/min/1. 7 sq meter [facility] Comment: GFR is calculated using the IDMS-Traceable Modification of Diet in Renal Disease (MDRD) Study formula and is only valid for patients 18 years or older. Further interpretative information is available in the Laboratory Services Policy Manual on the [facility] Intranet at: [email or web address]/ Blood specimen (specimen) 2013 4:37 AM HEAD BANDER AND LINER OPERATOR 2013 5:32 AM HEAD BANDER AND LINER OPERATOR Jillian Gonzalez MD CHEMISTRY ORDERABLES [facility] CLIA# [id number] [address] [place] [address] * (ABNORMAL) POC GLUCOSE (12/08/2013 9:18 PM HEAD BANDER AND LINER OPERATOR) GLUCOSE POC 176(H) 65 - 99 mg/dL INTERFACE SYSTEM CLIA LICENSE [id number] INTERF YANY SYSTEM Blood specimen (specimen) 12/08/2013 9:18 PM HEAD BANDER AND LINER OPERATOR 12/08/2013 9:18 PM HEAD BANDER AND LINER OPERATOR Ann Griggs MD POINT OF CARE TESTIN G Performing Organization Address [facility] Co de Phone Number INTERFACE SYSTEM Refer to clinic/hospital department * (ABNORMAL) POC GLUCOSE (12/08/2013 5:51 PM HEAD BANDER AND LINER OPERATOR) GLUCOSE POC 162(H) 65 - 99 mg/dL INTERFACE SYSTEM COMMENT, GLU POC Notified RN/MD INTERFACE SYSTEM CLIA LICENSE [id number] INTERF YANY SYSTEM Blood specimen (specimen) 12/08/2013 5:51 PM HEAD BANDER AND LINER OPERATOR 12/08/2013 5:51 PM HEAD BANDER AND LINER OPERATOR Ann Griggs MD POINT OF CARE TESTIN Danilo Performing Organization Address [facility] Co de Phone Number INTERFACE SYSTEM Refer to clinic/hospital department * (ABNORMAL) POC GLUCOSE (12/08/2013 1:43 PM HEAD BANDER AND LINER OPERATOR) GLUCOSE POC 137(H) 65 - 99 mg/dL INTERFACE SYSTEM CLIA LICENSE [id number] INTERF YANY SYSTEM Blood specimen (specimen) 12/08/2013 1:43 PM HEAD BANDER AND LINER OPERATOR 12/08/2013 1:43 PM HEAD BANDER AND LINER OPERATOR Ann Griggs MD POINT OF CARE TESTFREDI Carrasco Performing Organization Address [facility] Co de Phone Number INTERFACE SYSTEM Refer to clinic/hospital department * (ABNORMAL) CBC WITH DIFFERENTIAL (12/08/2013 11:20 AM HEAD BANDER AND LINER OPERATOR) WBC 12.1(H) 4.0 - 9.8 K/uL [facility] RBC 3.98 3.90 - 4.90 M/uL [facility] HEMOGLOBIN 11.9 11.8 - 14.8 g/dL [facility] HEMATOCRIT 36.0 35.5 - 44.0 % [facility] MCV 90.5 82.0 - 99.0 fL [facility] MCH 29.9 27.2 - 32.6 pg [facility] MCHC 33.1 31.5 - 35.5 % [facility] PLATELETS 303 140 - 350 K/uL [facility] MPV 10.6 9.3 - 12.4 fL [facility] RDW 13.1 11.5 - 14.5 % [facility] RDW-STDEV 42.8 37.1 - 48.7 fL [facility] NEUTROPHILS 79(H) 45 - 70 % [facility] LYMPHOCYTES 11(L) 16 - 45 % [facility] MONOCYTES 8 3 - 13 % [facility] EOSINOPHILS 1 0 - 7 % [facility] BASOPHILS 0 0 - 2 % [facility] NEUTROPHIL ABSOLUTE 9.64(H) 1.90 - 7.00 K/uL [facility] LYMPHOCYTE ABSOLUTE 1.32 0.70 - 4.50 K/uL [facility] MONOCYTE ABSOLUTE 1.03 0.10 - 1.30 K/uL [facility] EOSINOPHIL ABSOLUTE 0.13 0.00 - 0.70 K/uL [facility] BASOPHILS ABSOLUTE 0.01 0.00 - 0.20 K/uL [facility] Blood specimen (specimen) 12/08/2013 11:20 AM HEAD BANDER AND LINER OPERATOR 12/08/2013 11:25 AM HEAD BANDER AND LINER OPERATOR Ann Griggs MD HEMATOLOGY ORDERABLE S [facility] CLIA# [id number] [address] [place], [place] [address] * (ABNORMAL) POC GLUCOSE (12/08/2013 5:29 AM HEAD BANDER AND LINER OPERATOR) GLUCOSE POC 137(H) 65 - 99 mg/dL INTERFACE SYSTEM CLIA LICENSE [id number] INTERF YANY SYSTEM Blood specimen (specimen) 12/08/2013 5:29 AM HEAD BANDER AND LINER OPERATOR 12/08/2013 5:29 AM HEAD BANDER AND LINER OPERATOR Ann Griggs MD POINT OF CARE TESTIN G INTERFACE SYSTEM Refer to clinic/hospital department * (ABNORMAL) POC GLUCOSE (12/07/2013 11:24 PM HEAD BANDER AND LINER OPERATOR) GLUCOSE POC 155(H) 65 - 99 mg/dL INTERFACE SYSTEM CLIA LICENSE [id number] INTERF YANY SYSTEM Blood specimen (specimen) 12/07/2013 11:24 PM HEAD BANDER AND LINER OPERATOR 12/07/2013 11:24 PM HEAD BANDER AND LINER OPERATOR Ann Griggs MD POINT OF CARE TESTIN G INTERFACE SYSTEM Refer to clinic/hospital department * (ABNORMAL) POC GLUCOSE (12/07/2013 5:52 PM HEAD BANDER AND LINER OPERATOR) GLUCOSE POC 154(H) 65 - 99 mg/dL INTERFACE SYSTEM CLIA LICENSE [id number] INTERF YANY SYSTEM Blood specimen (specimen) 12/07/2013 5:52 PM HEAD BANDER AND LINER OPERATOR 12/07/2013 5:52 PM HEAD BANDER AND LINER OPERATOR Jillian Gonzalez MD POINT OF CARE TESTIN G INTERFACE SYSTEM Refer to clinic/hospital department * (ABNORMAL) POC GLUCOSE (12/07/2013 12:44 PM HEAD BANDER AND LINER OPERATOR) GLUCOSE POC 142(H) 65 - 99 mg/dL INTERFACE SYSTEM CLIA LICENSE [id number] INTERF YANY SYSTEM Blood specimen (specimen) 12/07/2013 12:44 PM HEAD BANDER AND LINER OPERATOR 12/07/2013 12:44 PM HEAD BANDER AND LINER OPERATOR Ann Griggs MD POINT OF CARE TESTIN Danilo INTERFACE SYSTEM Refer to clinic/hospital department * (ABNORMAL) COMPREHENSIVE METABOLIC PANEL (12/07/2013 6:12 AM HEAD BANDER AND LINER OPERATOR) SODIUM 138 135 - 145 mmol/L [facility] - [facility] POTASSIUM 3.4(L) 3.5 - 4.9 mmol/L [facility] - [facility] CHLORIDE 99 96 - 108 mmol/L [facility] - [facility] CO2 27 22 - 30 mmol/L [facility] - [facility] CALCIUM 8.9 8.6 - 10.2 mg/dL [facility] - . [facility] BUN 9 6 - 20 mg/dL [facility] CREATININE 0.67 0.51 - 0.95 mg/dL [facility] - [facility] GLUCOSE 156(H) 65 - 99 mg/dL [facility] TOTAL PROTEIN 6.5 6.3 - 8.6 g/dL [facility] ALBUMIN 3.3(L) 3.4 - 4.8 g/dL [facility] BILIRUBIN TOTAL 0.6 0.2 - 1.0 mg/dL [facility] ALKALINE PHOSPHATASE 51 35 - 104 U/L [facility] AST 58(H) 12 - 32 U/L [facility] - . [facility] ALT 74(H) 0 - 31 U/L [facility] - [facility] GFR, >60 >=60 mL/min/1. 7 sq meter [facility] - . [facility] GFR >60 >=60 mL/min/1. 7 sq meter [facility] Comment: GFR is calculated using the IDMS-Traceable Modification of Diet in Renal Disease (MDRD) Study formula and is only valid for patients 18 years or older. Further interpretative information is available in the Laboratory Services Policy Manual on the [facility] Intranet at: [email or web address]/ Blood specimen (specimen) 12/07/2013 6:12 AM HEAD BANDER AND LINER OPERATOR 12/07/2013 6:39 AM HEAD BANDER AND LINER OPERATOR Jillian Gonzalez MD CHEMISTRY ORDERABLES [facility] CLIA# [id number] [address] [facility] [place] [place], [place] [address] * (ABNORMAL) CBC WITH DIFFERENTIAL (12/07/2013 6:12 AM HEAD BANDER AND LINER OPERATOR) WBC 14.8(H) 4.0 - 9.8 K/uL [facility] RBC 3.68(L) 3.90 - 4.90 M/uL [facility] HEMOGLOBIN 11.0(L) 11.8 - 14.8 g/dL [facility] HEMATOCRIT 34.4(L) 35.5 - 44.0 % [facility] MCV 93.5 82.0 - 99.0 fL [facility] MCH 29.9 27.2 - 32.6 pg [facility] MCHC 32.0 31.5 - 35.5 % [facility] PLATELETS 241 140 - 350 K/uL [facility] MPV 11.2 9.3 - 12.4 fL [facility] - . [facility] RDW 13.4 11.5 - 14.5 % [facility] RDW-STDEV 45.8 37.1 - 48.7 fL [facility] NEUTROPHILS 83(H) 45 - 70 % [facility] . [facility] LYMPHOCYTES 9(L) 16 - 45 % [facility] . [facility] MONOCYTES 8 3 - 13 % [facility] . [facility] EOSINOPHILS 0 0 - 7 % [facility] . [facility] BASOPHILS 0 0 - 2 % [facility] . [facility] NEUTROPHIL ABSOLUTE 12.28(H) 1.90 - 7.00 K/uL [facility] . [facility] LYMPHOCYTE ABSOLUTE 1.36 0.70 - 4.50 K/uL [facility] . [facility] MONOCYTE ABSOLUTE 1.14 0.10 - 1.30 K/uL [facility] - [facility] EOSINOPHIL ABSOLUTE 0.05 0.00 - 0.70 K/uL [facility] - [facility] BASOPHILS ABSOLUTE 0.01 0.00 - 0.20 K/uL [facility] - [facility] Blood specimen (specimen) 12/07/2013 6:12 AM HEAD BANDER AND LINER OPERATOR 12/07/2013 6:38 AM HEAD BANDER AND LINER OPERATOR Jillian Gonzalez MD HEMATOLOGY ORDERABLE S [facility] CLIA# [id number] [address] [place], [place] [address] * (ABNORMAL) POC GLUCOSE (12/07/2013 5:44 AM HEAD BANDER AND LINER OPERATOR) GLUCOSE POC 148(H) 65 - 99 mg/dL INTERFACE SYSTEM CLIA LICENSE [id number] [facility]F [facility] SYSTEM Blood specimen (specimen) 12/07/2013 5:44 AM HEAD BANDER AND LINER OPERATOR 12/07/2013 5:44 AM HEAD BANDER AND LINER OPERATOR Jillian Gonzalez MD POINT OF CARE TESTIN G Performing Organization Address City/[facility] Co de Phone Number INTERFACE SYSTEM Refer to clinic/hospital department * (ABNORMAL) POC GLUCOSE (12/07/2013 12:50 AM HEAD BANDER AND LINER OPERATOR) GLUCOSE POC 102(H) 65 - 99 mg/dL INTERFACE SYSTEM CLIA LICENSE [id number] INTERF [facility] SYSTEM Blood specimen (specimen) 12/07/2013 12:50 AM HEAD BANDER AND LINER OPERATOR 12/07/2013 12:50 AM HEAD BANDER AND LINER OPERATOR Ann Griggs MD POINT OF CARE TESTIN G INTERFACE SYSTEM Refer to clinic/hospital department * POC GLUCOSE (12/06/2013 6:47 PM HEAD BANDER AND LINER OPERATOR) GLUCOSE POC 78 65 - 99 mg/dL INTERFACE SYSTEM CLIA LICENSE [id number] INTERF YANY SYSTEM Blood specimen (specimen) 12/06/2013 6:47 PM HEAD BANDER AND LINER OPERATOR 12/06/2013 6:47 PM HEAD BANDER AND LINER OPERATOR Ann Griggs MD POINT OF CARE TESTIN Danilo INTERFACE SYSTEM Refer to clinic/hospital department * POC GLUCOSE (12/06/2013 12:12 PM HEAD BANDER AND LINER OPERATOR) GLUCOSE POC 87 65 - 99 mg/dL INTERFACE SYSTEM COMMENT, GLU POC Notified RN/MD INTERFACE SYSTEM CLIA LICENSE [id number] INTERF Y[facility] SYSTEM Blood specimen (specimen) 12/06/2013 12:12 PM HEAD BANDER AND LINER OPERATOR 12/06/2013 12:12 PM HEAD BANDER AND LINER OPERATOR Jillian Gonzalez MD POINT OF CARE TESTIN G Performing Organization Address [facility] Co de Phone Number INTERFACE SYSTEM Refer to clinic/hospital department * (ABNORMAL) COMPREHENSIVE METABOLIC PANEL (12/06/2013 5:25 AM HEAD BANDER AND LINER OPERATOR) SODIUM 141 135 - 145 mmol/L [facility] POTASSIUM 3.3(L) 3.5 - 4.9 mmol/L [facility] CHLORIDE 101 96 - 108 mmol/L [facility] CO2 32(H) 22 - 30 mmol/L [facility] CALCIUM 8.6 8.6 - 10.2 mg/dL [facility] BUN 16 6 - 20 mg/dL [facility] CREATININE 0.86 0.51 - 0.95 mg/dL [facility] GLUCOSE 92 65 - 99 mg/dL [facility] TOTAL PROTEIN 5.6(L) 6.3 - 8.6 g/dL [facility] ALBUMIN 3.2(L) 3.4 - 4.8 g/dL [facility] BILIRUBIN TOTAL 0.4 0.2 - 1.0 mg/dL [facility] ALKALINE PHOSPHATASE 38 35 - 104 U/L [facility] [facility] AST 92(H) 12 - 32 U/L [facility] ALT 104(H) 0 - 31 U/L [facility] - [facility] GFR, >60 >=60 mL/min/1. 7 sq meter [facility] - [facility] GFR >60 >=60 mL/min/1. 7 sq meter [facility] Comment: GFR is calculated using the IDMS-Traceable Modification of Diet in Renal Disease (MDRD) Study formula and is only valid for patients 18 years or older. Further interpretative information is available in the Laboratory Services Policy Manual on the [facility] Intranet at: [email or web address]://[email or web address] for childrenAnywhere to Goet.[facility]a general hospitalPushCallsamaritan north health center.[facility]/ Blood specimen (specimen) 12/06/2013 5:25 AM HEAD BANDER AND LINER OPERATOR 12/06/2013 6:26 AM HEAD BANDER AND LINER OPERATOR Jillian Gonzalez MD CHEMISTRY ORDERABLES [facility] CLIA# [id number] [address] [facility] [place] [address] * (ABNORMAL) CBC WITH DIFFERENTIAL (12/06/2013 5:25 AM HEAD BANDER AND LINER OPERATOR) WBC 12.9(H) 4.0 - 9.8 K/uL [facility] RBC 3.42(L) 3.90 - 4.90 M/uL [facility] HEMOGLOBIN 10.1(L) 11.8 - 14.8 g/dL [facility] HEMATOCRIT 32.7(L) 35.5 - 44.0 % [facility] MCV 95.6 82.0 - 99.0 fL [facility] MCH 29.5 27.2 - 32.6 pg [facility] MCHC 30.9(L) 31.5 - 35.5 % [facility] PLATELETS 203 140 - 350 K/uL [facility] MPV 11.1 9.3 - 12.4 fL [facility] RDW 14.0 11.5 - 14.5 % [facility] RDW-STDEV 48.4 37.1 - 48.7 fL [facility] NEUTROPHILS 80(H) 45 - 70 % [facility] LYMPHOCYTES 11(L) 16 - 45 % [facility] MONOCYTES 9 3 - 13 % [facility] EOSINOPHILS 0 0 - 7 % [facility] BASOPHILS 0 0 - 2 % [facility] . [facility] NEUTROPHIL ABSOLUTE 10.28(H) 1.90 - 7.00 K/uL [facility] LYMPHOCYTE ABSOLUTE 1.44 0.70 - 4.50 K/uL [facility] - . [facility] MONOCYTE ABSOLUTE 1.17 0.10 - 1.30 K/uL [facility] - [facility] EOSINOPHIL ABSOLUTE 0.02 0.00 - 0.70 K/uL [facility] - . [facility] BASOPHILS ABSOLUTE 0.01 0.00 - 0.20 K/uL [facility] Blood specimen (specimen) 12/06/2013 5:25 AM HEAD BANDER AND LINER OPERATOR 12/06/2013 6:26 AM HEAD BANDER AND LINER OPERATOR Jillian Gonzalez MD HEMATOLOGY ORDERABLE S [facility] CLIA# [id number] [address] [place] [address] * POC GLUCOSE (12/06/2013 5:11 AM HEAD BANDER AND LINER OPERATOR) GLUCOSE POC 95 65 - 99 mg/dL INTER[facility] SYSTEM CLIA LICENSE [id number] [facility] Blood specimen (specimen) 12/06/2013 5:11 AM HEAD BANDER AND LINER OPERATOR 12/06/2013 5:11 AM HEAD BANDER AND LINER OPERATOR Ann Griggs MD POINT OF CARE TESTIN G INTERFACE SYSTEM Refer to clinic/hospital department * (ABNORMAL) POC GLUCOSE (12/05/2013 11:13 PM HEAD BANDER AND LINER OPERATOR) GLUCOSE POC 107(H) 65 - 99 mg/dL [facility] CLIA LICENSE [id number] [facility] Blood specimen (specimen) 12/05/2013 11:13 PM HEAD BANDER AND LINER OPERATOR 12/05/2013 11:13 PM HEAD BANDER AND LINER OPERATOR Ann Griggs MD POINT OF CARE TESTIN G Performing Organization Address City/[facility] Phone Number INTERFACE SYSTEM Refer to clinic/hospital department * (ABNORMAL) POC GLUCOSE (12/05/2013 5:09 PM HEAD BANDER AND LINER OPERATOR) GLUCOSE POC 125(H) 65 - 99 mg/dL [facility] CLIA LICENSE [id number] [facility] Blood specimen (specimen) 12/05/2013 5:09 PM HEAD BANDER AND LINER OPERATOR 12/05/2013 5:09 PM HEAD BANDER AND LINER OPERATOR Ann Griggs MD POINT OF CARE TESTFREDI Carrasco Performing Organization Address [facility] Phone Number INTERFACE SYSTEM Refer to clinic/hospital department * (ABNORMAL) POC GLUCOSE (12/05/2013 1:01 PM HEAD BANDER AND LINER OPERATOR) GLUCOSE POC 115(H) 65 - 99 mg/dL [facility] CLIA LICENSE [id number] [employer] SYSTEM Blood specimen (specimen) 12/05/2013 1:01 PM HEAD BANDER AND LINER OPERATOR 12/05/2013 1:01 PM HEAD BANDER AND LINER OPERATOR Ann Griggs MD POINT OF CARE TESTIN G Performing Organization Address [facility] Phone Number INTERFACE SYSTEM Refer to clinic/hospital department * (ABNORMAL) POC GLUCOSE (12/05/2013 9:10 AM HEAD BANDER AND LINER OPERATOR) GLUCOSE POC 140(H) 65 - 99 mg/dL [facility] CLIA LICENSE [id number] [employer] SYSTEM Blood specimen (specimen) 12/05/2013 9:10 AM HEAD BANDER AND LINER OPERATOR 12/05/2013 9:10 AM HEAD BANDER AND LINER OPERATOR Ann Griggs MD POINT OF CARE TESTIN Danilo Performing Organization Address [facility] Phone Number INTERFACE SYSTEM Refer to clinic/hospital department * (ABNORMAL) COMPREHENSIVE METABOLIC PANEL (12/05/2013 4:15 AM HEAD BANDER AND LINER OPERATOR) SODIUM 141 135 - 145 mmol/L [facility] - [facility] POTASSIUM 4.0 3.5 - 4.9 mmol/L [facility] - [facility] CHLORIDE 104 96 - 108 mmol/L [facility] SERVICES - . [facility] CO2 29 22 - 30 mmol/L [facility] CALCIUM 8.4(L) 8.6 - 10.2 mg/dL [facility] BUN 22(H) 6 - 20 mg/dL [facility] SERVICES [facility] CREATININE 0.87 0.51 - 0.95 mg/dL [facility] GLUCOSE 156(H) 65 - 99 mg/dL [facility]. [facility] TOTAL PROTEIN 5.7(L) 6.3 - 8.6 g/dL [facility]. [facility] ALBUMIN 3.5 3.4 - 4.8 g/dL [facility]. [facility] BILIRUBIN TOTAL 0.4 0.2 - 1.0 mg/dL [facility] ALKALINE PHOSPHATASE 37 35 - 104 U/L [facility] AST 118(H) 12 - 32 U/L [facility] - . [facility] ALT 130(H) 0 - 31 U/L [facility] GFR, >60 >=60 mL/min/1. 7 sq meter [facility] - [facility] GFR >60 >=60 mL/min/1. 7 sq meter [facility] Comment: GFR is calculated using the IDMS-Traceable Modification of Diet in Renal Disease (MDRD) Study formula and is only valid for patients 18 years or older. Further interpretative information is available in the Laboratory Services Policy Manual on the [facility] Intranet at: [email or web address]-[email or web address]/ Blood specimen (specimen) 12/05/2013 4:15 AM HEAD BANDER AND LINER OPERATOR 12/05/2013 4:29 AM HEAD BANDER AND LINER OPERATOR Ann Muhammad DO CHEMISTRY ORDERABLES [facility] CLIA# [id number] [address] [place] [address] * (ABNORMAL) CBC WITH DIFFERENTIAL (12/05/2013 4:15 AM HEAD BANDER AND LINER OPERATOR) [facility] WBC 13.3(H) 4.0 - 9.8 K/uL [facility] RBC 3.60(L) 3.90 - 4.90 M/uL [facility] HEMOGLOBIN 10.9(L) 11.8 - 14.8 g/dL [facility] . [facility] HEMATOCRIT 33.6(L) 35.5 - 44.0 % [facility] . [facility] MCV 93.3 82.0 - 99.0 fL [facility] MCH 30.3 27.2 - 32.6 pg [facility] MCHC 32.4 31.5 - 35.5 % [facility] PLATELETS 236 140 - 350 K/uL [facility] . [facility] MPV 11.2 9.3 - 12.4 fL [facility] . [facility] RDW 13.8 11.5 - 14.5 % [facility] RDW-STDEV 47.2 37.1 - 48.7 fL [facility] NEUTROPHILS 83(H) 45 - 70 % [facility] LYMPHOCYTES 8(L) 16 - 45 % [facility] MONOCYTES 9 3 - 13 % [facility] EOSINOPHILS 0 0 - 7 % [facility] BASOPHILS 0 0 - 2 % [facility] NEUTROPHIL ABSOLUTE 11.09(H) 1.90 - 7.00 K/uL [facility] LYMPHOCYTE ABSOLUTE 1.06 0.70 - 4.50 K/uL [facility] MONOCYTE ABSOLUTE 1.18 0.10 - 1.30 K/uL [facility] EOSINOPHIL ABSOLUTE 0.00 0.00 - 0.70 K/uL [facility] - . [facility] BASOPHILS ABSOLUTE 0.00 0.00 - 0.20 K/uL [facility] . [facility] Blood specimen (specimen) 12/05/2013 4:15 AM HEAD BANDER AND LINER OPERATOR 12/05/2013 4:29 AM HEAD BANDER AND LINER OPERATOR Ann Jb DO HEMATOLOGY ORDERABLE S [facility] CLIA# [id number] [address] [place] [address] * (ABNORMAL) POC GLUCOSE (12/05/2013 4:06 AM HEAD BANDER AND LINER OPERATOR) GLUCOSE POC 141(H) 65 - 99 mg/dL [facility] CLIA LICENSE [id number] [facility] Blood specimen (specimen) 12/05/2013 4:06 AM HEAD BANDER AND LINER OPERATOR 12/05/2013 4:06 AM HEAD BANDER AND LINER OPERATOR Ann Burlington DO POINT OF CARE TESTIN G INTERFACE SYSTEM Refer to clinic/hospital department * (ABNORMAL) POC GLUCOSE (12/04/2013 11:16 PM HEAD BANDER AND LINER OPERATOR) GLUCOSE POC 122(H) 65 - 99 mg/dL [facility] CLIA LICENSE [id number] [facility] SYSTEM Blood specimen (specimen) 12/04/2013 11:16 PM HEAD BANDER AND LINER OPERATOR 12/04/2013 11:16 PM HEAD BANDER AND LINER OPERATOR Ann Burlington DO POINT OF CARE TESTIN G INTERFACE SYSTEM Refer to clinic/hospital department * (ABNORMAL) POC GLUCOSE (12/04/2013 8:15 PM HEAD BANDER AND LINER OPERATOR) GLUCOSE POC 140(H) 65 - 99 mg/dL [facility] CLIA LICENSE [id number] [facility] SYSTEM Blood specimen (specimen) 12/04/2013 8:15 PM HEAD BANDER AND LINER OPERATOR 12/04/2013 8:15 PM HEAD BANDER AND LINER OPERATOR Ann Burlington DO POINT OF CARE TESTIN G INTERFACE SYSTEM Refer to clinic/hospital department * (ABNORMAL) POC GLUCOSE (12/04/2013 5:57 PM HEAD BANDER AND LINER OPERATOR) GLUCOSE POC 184(H) 65 - 99 mg/dL INTER[facility] SYSTEM CLIA LICENSE [id number] [facility] SYSTEM Blood specimen (specimen) 12/04/2013 5:57 PM HEAD BANDER AND LINER OPERATOR 12/04/2013 5:57 PM HEAD BANDER AND LINER OPERATOR Ann Griggs MD POINT OF CARE TESTIN G INTERFACE SYSTEM Refer to clinic/hospital department * PATHOLOGY (12/04/2013 12:33 PM HEAD BANDER AND LINER OPERATOR) SURGICAL PATHOLOGY ?[facility] ?[address] ? [place], [place] ??[address] ? Patient: ??MARION, REBEL ? : ??1950 ? Procedure Date: ??12/04/2013 ? Accession Date: ??12/04/2013 ? Case No: ??[id number] ? Ordering Dr: ??ANN GRIGGS ? Case type SW is performed by [facility], [address] [place] [address], ? [place], [place] ??[address]; all other case types are performed by [facility] ? [facility], [address] [place], [place] ??[address] ?SURGICAL PATHOLOGY & NON-GYNECOLOGIC CYTOPATHOLOGY REPORT ? [...] ? Received in a container labeled Rebel Fernández, gallbladder, head of ? pancreas, duodenum, bile [...] to probe. The bile duct mucosa is mackay and smooth, ? without any compressing masses. [...] Multiple potential ? lymph nodes are identified. Wood Carving Machine Operator sections are submitted in ? cassettes as follows: A1 and A2-uncinate process, perpendicularly sectioned ? and entirely submitted; A3-pancreatic resection margin, perpendicularly ? sectioned and entirely submitted; A4 through A7-cystic lesion, entirely ? submitted, proximal to distal; A8-unremarkable pancreas, including yellow-, ? blue-, and black-inked surfaces; A9 and C75-enfptnlz peripancreatic lymph ? nodes; A11 and X34-kdbe with one peripancreatic lymph node, bisected; A13 ? through A65-dalahezahr around cystic lesion, entirely submitted; B1- ? duodenum margin, enface; B2-bile duct margin, en face; B3 and B4-ampulla ? with nodular lesion (entirely submitted), bile duct, and pancreas; C1 and ? C2-stomach margin, en face; C3-pylorus; C4 and C5-multiple lymph nodes from ? adipose tissue attached to stomach; C6-one lymph node, bisected, from ? adipose tissue attached to stomach; C13 though S83-cuqqmakcy of tissue ? around cystic lesion. Also received within the container is a 7.8 x 2 x ? 0.8-cm collapsed previously disrupted gallbladder. The serosal surface is ? purple-barrientos, smooth and glistening. The gallbladder wall has a uniform ? thickness of 0.3 cm. The mucosal surface is mackay and velvety, with focal ? yellow stippling. No distinct mucosal lesions are identified. ? Wood Carving Machine Operator sections are submitted in cassette D1 and D2. Also received ? loose within the container is a 27 x 9 x 1.4-cm piece of yellow adipose ? tissue, consistent with omentum. The cut surface is yellow-mackay, lobulated ? and unremarkable. Wood Carving Machine Operator sections are submitted in cassettes E1 and ? E2. ? [facility] 12.05.2013 03:32 pm ? Microscopic: ? Received are slides labeled [id number], Rebel Foreman. ? The submitted Whipple specimen [...] Number examined 16; Number involved 0. ? [facility] 12.06.2013 01:09 pm ? Staging Form: ? Yes. ? ELECTRONIC SIGNATURE FOR CHRISTINA ISLAS M.D.- 12/11/13 04:09 pm [facility] Tissue specimen (specimen) 12/04/2013 12:33 PM HEAD BANDER AND LINER OPERATOR Ann Muhammad DO PATHOLOGY/CYTOLOGY O RDERAHEATH Performing Organization Address City/[facility]/ZIP Co de Phone Number [facility] CLIA# [id number] [address] [facility] [place] [address] * (ABNORMAL) POC GLUCOSE (12/04/2013 11:48 AM HEAD BANDER AND LINER OPERATOR) [facility] GLUCOSE POC 167(H) 65 - 99 mg/dL INTERFACE SYSTEM CLIA LICENSE [id number] [facility] SYSTEM Blood specimen (specimen) 12/04/2013 11:48 AM HEAD BANDER AND LINER OPERATOR 12/04/2013 11:48 AM HEAD BANDER AND LINER OPERATOR Ann Griggs MD POINT OF CARE TESTIN G INTERFACE SYSTEM Refer to clinic/hospital department * (ABNORMAL) POC GLUCOSE (12/04/2013 7:11 AM HEAD BANDER AND LINER OPERATOR) Pathologist [facility] GLUCOSE POC 127(H) 65 - 99 mg/dL INTERFACE SYSTEM CLIA LICENSE [id number] INTERF [facility] SYSTEM Blood specimen (specimen) 12/04/2013 7:11 AM HEAD BANDER AND LINER OPERATOR 12/04/2013 7:11 AM HEAD BANDER AND LINER OPERATOR Ann Griggs MD POINT OF CARE GREER Galvez Organization Address City/State/ZIP Co de Phone Number INTERFACE SYSTEM Refer to clinic/hospital department documented in this encounter Visit Diagnoses Diagnosis Pancreas cyst- Primary Cyst and pseudocyst of pancreas Pancreas cyst Cyst and pseudocyst of pancreas Diabetes mellitus Type II or unspecified type diabetes mellitus without mention of complication, not stated as uncontrolled Hypertension Unspecified essential hypertension GERD (gastroesophageal reflux disease) Esophageal reflux Elevated LFTs Other abnormal blood chemistry Hyperlipidemia Other and unspecified hyperlipidemia Electrolyte imbalance Electrolyte and fluid disorders not elsewhere classified Hypertension Unspecified essential hypertension Diabetes mellitus Type II or unspecified type diabetes mellitus without mention of complication, not stated as uncontrolled GERD (gastroesophageal reflux disease) Esophageal reflux Hyperlipidemia Other and unspecified hyperlipidemia Elevated LFTs Other abnormal blood chemistry Electrolyte imbalance Electrolyte and fluid disorders not elsewhere classified documented in this encounter Administered Medications Inactive Administered Medications - up to 3 most recent administrations Medication Order MAR Action Action Date Dose Rate Site alvimopan (ENTEREG) capsule 12 mg 12 mg, Oral, TWO TIMES DAILY, 14 doses, First dose on Wed12/05/13 at 0900, Last dose on Wed12/11/13 at 2100, Routine Given 2013 8:44 PM HEAD BANDER AND LINER OPERATOR 12 mg Given 2013 9:05 AM HEAD BANDER AND LINER OPERATOR 12 mg Given 12/08/2013 9:11 PM HEAD BANDER AND LINER OPERATOR 12 mg bupivacaine PF 0.1 %, morphine PF 0.1 mg/mL in sodium chloride 0.9% 383.3 mL EPIDURAL 500 mL, Epidural, at 5 mL/hr, CONTINUOUS, Starting on Wed12/04/13 at 0745, Until Wed12/08/13 at 0744, #[id number] Rate Verify 12/07/2013 5:55 PM HEAD BANDER AND LINER OPERATOR 5 mL/hr Rate Verify 12/07/2013 8:51 AM HEAD BANDER AND LINER OPERATOR 5 mL/hr Rate Verify 12/06/2013 1:53 PM HEAD BANDER AND LINER OPERATOR 5 mL/hr dextrose 5% - sodium chloride 0.45% infusion IV, at 30 mL/hr, CONTINUOUS, Starting on Wed12/06/13 at 1700, Until Wed12/10/13 at 1209, Routine Rate Verify 2013 4:16 AM HEAD BANDER AND LINER OPERATOR 30 mL/h r Rate Verify 2013 1:50 AM HEAD BANDER AND LINER OPERATOR 30 mL/hr Rate Verify 12/08/2013 9:34 PM HEAD BANDER AND LINER OPERATOR 30 mL/hr diphenhydrAMINE (BENADRYL) injection 12.5 mg 12.5 mg, IV, EVERY 6 HOURS PRN, Starting on Wed12/04/13 at 1359, Until Wed12/10/13 at 1209, Itching, Routine Given 2013 11:35 PM HEAD BANDER AND LINER OPERATOR 12.5 mg Given 2013 4:13 AM HEAD BANDER AND LINER OPERATOR 12.5 mg Given 12/06/2013 5:47 AM HEAD BANDER AND LINER OPERATOR 12.5 mg famotidine PF (PEPCID) 20 mg/2 mL injection 20 mg 20 mg, IV, TWO TIMES DAILY, First dose on Wed12/04/13 at 2100, Until Discontinued, Routine Given 12/10/2013 8:41 AM CDT 20 mg Given 2013 8:44 PM HEAD BANDER AND LINER OPERATOR 20 mg Given 2013 9:06 AM HEAD BANDER AND LINER OPERATOR 20 mg fentaNYL PF (SUBLIMAZE) 50 mcg/mL injection 25 mcg 25 mcg, IV, POST-PROCEDURE Q 3 MINUTES PRN, Starting on Wed12/04/13 at 0809, Until Wed12/04/13 at 1348, Pain, For pain 2-10, Routine, PACU Given 12/04/2013 12:23 PM HEAD BANDER AND LINER OPERATOR 25 mcg gentamicin (GARAMYCIN) 100 mg in sodium chloride 0.9% 100 mL traditional dose IVPB 100 mg, IV, EVERY 8 HOURS, 2 doses, First dose on Wed12/04/13 at 1600, Last dose on Wed12/05/13 at 0000, Routine, Post-op - Floor New Bag 12/04/2013 11:21 PM HEAD BANDER AND LINER OPERATOR 100 mg 205 mL/hr New Bag 12/04/2013 4:30 PM HEAD BANDER AND LINER OPERATOR 100 mg 205 mL/hr heparin injection 5,000 Units 5,000 Units, subCUT, EVERY 12 HOURS (BlD), First dose (after last reorder) on Wed12/05/13 at 0600, Until Discontinued, Routine Given 12/08/2013 8:56 AM HEAD BANDER AND LINER OPERATOR 5,000 Units Abdomen, Right Lower Quadrant Given 12/07/2013 8:30 PM HEAD BANDER AND LINER OPERATOR 5,000 Units A bdomen, Left Upper Quadrant Given 12/07/2013 8:47 AM HEAD BANDER AND LINER OPERATOR 5,000 Units A bdomen, Left Lower Quadrant heparin injection 5,000 Units 5,000 Units, subCUT, EVERY 8 HOURS EARLY, First dose on Wed12/08/13 at 1700, Until Discontinued, Routine Given 2013 9:06 AM HEAD BANDER AND LINER OPERATOR 5,000 Units Abdomen, Left Lower Quadrant Given 2013 12:39 AM HEAD BANDER AND LINER OPERATOR 5,000 Units Abdomen, Right Lower Quadrant Given 12/08/2013 5:34 PM HEAD BANDER AND LINER OPERATOR 5,000 Units A bdomen, Right Lower Quadrant insulin aspart (NOVOLOG) 100 unit/mL variable dose subCUT, EVERY 4 HOURS, First dose (after last modification) on Wed12/04/13 at 2000, Until Discontinued, Routine Given 12/05/2013 4:09 AM HEAD BANDER AND LINER OPERATOR 3 Units Arm, Left Upper Given 12/04/2013 8:17 PM HEAD BANDER AND LINER OPERATOR 3 Units Ar m, Right Upper insulin aspart (NOVOLOG) 100 unit/mL variable dose subCUT, EVERY 6 HOURS, First dose (after last modification) on Wed12/05/13 at 1800, Until Discontinued, Routine Given 12/07/2013 11:29 PM HEAD BANDER AND LINER OPERATOR 2 Units Arm, Left Given 12/07/2013 5:53 PM HEAD BANDER AND LINER OPERATOR 2 Units Ar m, Right Upper insulin aspart (NOVOLOG) 100 unit/mL variable dose subCUT, FOUR TIMES DAILY BEFORE MEALS AND AT BEDTIME, First dose (after last modification) on Wed12/08/13 at 1600, Until Discontinued, Routine Given 12/08/2013 9:19 PM HEAD BANDER AND LINER OPERATOR 2 Units Arm, Left Upper Given 12/08/2013 5:53 PM HEAD BANDER AND LINER OPERATOR 2 Units Ar m, Right Upper insulin aspart (NOVOLOG) 100 unit/mL variable dose subCUT, FOUR TIMES DAILY WITH MEALS AND AT BEDTIME, First dose (after last modification) on Wed12/09/13 at 0700, Until Discontinued, Routine Given 12/10/2013 8:39 AM CDT 2 Units Arm, Left Upper Given 2013 8:51 PM HEAD BANDER AND LINER OPERATOR 2 Units Ar m, Right Upper Given 2013 5:09 PM HEAD BANDER AND LINER OPERATOR 2 Units Ar m, Right Upper lactated ringers solution IV, at 110 mL/hr, CONTINUOUS, Starting on Wed12/04/13 at 1400, Until Wed12/06/13 at 1654, Routine Bag Switched 12/06/2013 11:13 AM HEAD BANDER AND LINER OPERATOR 110 mL/hr Rate Verify 12/06/2013 7:40 AM HEAD BANDER AND LINER OPERATOR 110 mL/hr New Bag 12/06/2013 1:58 AM HEAD BANDER AND LINER OPERATOR 110 mL/hr metFORMIN (GLUCOPHAGE) tablet 500 mg 500 mg, Oral, DAILY WITH SUPPER, First dose on Wed12/08/13 at 1700, Until Discontinued Given 2013 5:11 PM HEAD BANDER AND LINER OPERATOR 50 0 mg Given 12/08/2013 5:32 PM HEAD BANDER AND LINER OPERATOR 500 mg metoprolol (LOPRESSOR) 5 mg/5 mL injection 2.5 mg 2.5 mg, IV, EVERY 6 HOURS, First dose (after last modification) on Marina 12/07/13 at 1200, Until Discontinued, Routine Given 12/08/2013 8:46 AM HEAD BANDER AND LINER OPERATOR 2.5 mg Given 12/07/2013 11:28 PM HEAD BANDER AND LINER OPERATOR 2.5 mg Given 12/07/2013 5:45 PM HEAD BANDER AND LINER OPERATOR 2.5 mg metoprolol tartrate (LOPRESSOR) tablet 25 mg 25 mg, Oral, TWO TIMES DAILY, First dose on Wed12/08/13 at 2100, Until Discontinued, Routine Given 12/10/2013 8:40 AM CDT 25 mg Given 2013 8:44 PM HEAD BANDER AND LINER OPERATOR 25 mg Given 2013 9:05 AM HEAD BANDER AND LINER OPERATOR 25 mg metroNIDAZOLE (FLAGYL) IVPB 500 mg 500 mg, IV, EVERY 8 HOURS, 2 doses, First dose on Wed12/04/13 at 1500, Last dose on Wed12/04/13 at 2300, Routine, Post-op - Floor New Bag 12/04/2013 10:17 PM HEAD BANDER AND LINER OPERATOR 500 mg New Bag 12/04/2013 5:03 PM HEAD BANDER AND LINER OPERATOR 500 mg morphine injection 2 mg 2 mg, IV, EVERY 3 HOURS PRN, Starting on Wed12/04/13 at 1359, Until Wed12/08/13 at 0912, Pain, Break-Through, Routine Given 12/08/2013 3:31 AM HEAD BANDER AND LINER OPERATOR 2 mg Given 12/07/2013 6:39 AM HEAD BANDER AND LINER OPERATOR 2 mg ondansetron (ZOFRAN) 4 mg/2 mL injection 4 mg 4 mg, IV, EVERY 6 HOURS PRN, Starting on Wed12/04/13 at 1359, Until 12/10/13 at 1209, Nausea/Emesis, Routine Given 2013 11:34 PM HEAD BANDER AND LINER OPERATOR 4 mg Given 2013 4:12 AM HEAD BANDER AND LINER OPERATOR 4 mg oxyCODONE-acetaminophen (PERCOCET) 10-325 mg per tablet 1 Tab 1 Tablet, Oral, EVERY 3 HOURS PRN, Starting on Wed12/08/13 at 0911, Until Wed12/10/13 at 1209, Pain, Severe, Routine Given 2013 9:45 PM HEAD BANDER AND LINER OPERATOR 1 Tablet Given 2013 1:07 PM HEAD BANDER AND LINER OPERATOR 1 Tablet Given 12/08/2013 9:33 PM HEAD BANDER AND LINER OPERATOR 1 Tablet potassium chloride (KLOR-CON,K-TAB) tablet 20 mEq 20 mEq, Oral, ONE TIME ONLY, 1 dose, On Marina 12/07/13 at 0945, Routine Given 12/07/2013 12:24 PM HEAD BANDER AND LINER OPERATOR 20 mEq potassium chloride (KLOR-CON,K-TAB) tablet 40 mEq 40 mEq, Oral, ONE TIME ONLY, 1 dose, On 12/09/13 at 1500, Routine Given 2013 4:10 PM HEAD BANDER AND LINER OPERATOR 40 mEq potassium Cl 40 mEq in sodium chloride 0.9% 250 mL IVPB 40 mEq, IV, ONE TIME ONLY, 1 dose, On Wed12/06/13 at 2100, at 67.5 mL/hr, Administer over 4 Hours, Routine Restarted 12/07/2013 1:06 AM HEAD BANDER AND LINER OPERATOR 40 mEq 37 mL/hr New Bag 12/06/2013 9:01 PM HEAD BANDER AND LINER OPERATOR 40 mEq 67.5 mL/hr potassium Cl 40 mEq in sodium chloride 0.9% 250 mL IVPB 40 mEq, IV, ONE TIME ONLY, 1 dose, On 12/09/13 at 1630, at 67.5 mL/hr, Administer over 4 Hours, Routine New Bag 2013 4:56 PM HEAD BANDER AND LINER OPERATOR 40 mEq 67.5 mL/hr triamterene-hydrochlorothiazide (MAXZIDE 25) 37.5-25 mg per tablet 1 Tab 1 Tablet, Oral, DAILY, First dose on Wed12/08/13 at 0900, Until Discontinued, Routine Given 12/10/2013 8:40 AM CDT 1 Tablet Given 2013 9:05 AM HEAD BANDER AND LINER OPERATOR 1 Tablet Given 12/08/2013 10:05 AM HEAD BANDER AND LINER OPERATOR 1 Tablet documented in this encounter Active and Recently Administered Medications Due to Daylight Saving Time, this section may contain times in both HEAD BANDER AND LINER OPERATOR and CDT. Scheduled Medication Order 12/08/2013 2013 12/10/2013 alvimopan (ENTEREG) capsule 12 mg (CANCELED) 12 mg, Oral, TWO TIMES DAILY, 14 doses, First dose on Wed12/05/13 at 0900, Last dose on Wed12/11/13 at 2100, Routine 0855 (Given - Provider: Samantha Perez RN)211 (Given - Provider: Clara Doty RN) 09 (Given - Provider: Jennifer Cowan RN)204 (Given - Provider: Clara Doty RN) 0900 (Not Given - Provider: Jennifer Cowan RN [...] RN)2043 (Given - Provider: Clara Doty RN) 0841 (Given - Provider: Jennifer Cowan RN) heparin injection 5,000 Units (CANCELED) 5,000 Units, subCUT, EVERY 12 HOURS (BlD), First dose (after last reorder) on Wed12/05/13 at 0600, Until Discontinued, Routine 0856 (Given - Provider: Samantha Perez RN) heparin injection 5,000 Units (CANCELED) 5,000 [...] Discontinued, Routine 1753 (Given - Provider: Samantha L Ana, RN - Comment: blood sugar 162)2118 (Given - Provider: Clara Doty RN) insulin aspart (NOVOLOG) 100 unit/mL variable dose (CANCELED) subCUT, FOUR TIMES DAILY WITH MEALS AND AT BEDTIME, First dose (after last modification) on Wed12/09/13 at 0700, Until Discontinued, Routine 0944 (Not Given - Provider: Jennifer Cowan RN - Reason: Lab results - Comment: [phone] (Refused - Provider: Jennifer Cowan RN - Comment: 160)170 (Given - Provider: Jennifer Cowan RN - Comment: 169)2050 (Given - Provider: Clara Doty RN) 0839 (Given - Provider: Jennifer Cowan RN - Comment: 171) metFORMIN (GLUCOPHAGE) tablet 500 mg (CANCELED) 500 mg, Oral, DAILY WITH SUPPER, First dose on Wed12/08/13 at 1700, Until Discontinued 173 (Given - Provider: Samantha Perez RN) 171 (Given - Provider: Jennifer Cowan RN) metoprolol (LOPRESSOR) 5 mg/5 mL injection 2.5 mg (CANCELED) 2.5 mg, IV, EVERY 6 HOURS, First dose (after last modification) on [place] 12/07/13 at 1200, Until Discontinued, Routine 0846 (Given - Provider: Samantha Perez RN) metoprolol tartrate (LOPRESSOR) tablet 25 mg (CANCELED) 25 mg, Oral, TWO TIMES DAILY, First dose on Wed12/08/13 at 2100, Until Discontinued, Routine 2114 (Given - Provider: Clara Doty RN) 09 (Given - Provider: Jennifer Cowan RN)2043 (Given - Provider: Clara Doty RN) 0840 [...] Routine 1656 (New Bag - Provider: Jennifer Cowan, [place]) triamterene-hydrochloro thiazide (MAXZIDE 25) 37.5-25 mg per tablet 1 Tab (CANCELED) 1 Tablet, Oral, DAILY, First dose on Wed12/08/13 at 0900, Until Discontinued, Routine 1005 (Given - Provider: Samantha Perez RN) 0905 (Given - Provider: Jennifer Cowan, [place]) 0840 (Given - Provider: Jennifer Cowan, [place]) Continuous Medication Order 12/08/2013 2013 12/10/2013 bupivacaine PF 0.1 %, morphine PF 0.1 mg/mL in sodium chloride 0.9% 383.3 mL EPIDURAL 500 mL, Epidural, at 5 mL/hr, CONTINUOUS, Starting on Wed12/04/13 at 0745, Until Wed12/08/13 at 0744, #[id number] dextrose 5% - sodium chloride 0.45% infusion [...] Doty RN)2134 (Rate Verify - Provider: Clara Doty, [place]) 0150 (Rate Verify - Provider: Clara Doty RN)0416 (Rate Verify - Provider: Clara Doty RN)1100 (Stopped - Provider: Jennifer Cowan, [place]) PRN Medication Order 12/08/2013 2013 12/10/2013 diphenhydrAMINE (BENADRYL) injection 12.5 mg (CANCELED) 12.5 mg, IV, EVERY 6 HOURS PRN, Starting on 12/04/13 at 1359, Until 12/10/13 at 1209, Itching, Routine 0413 (Given - Provider: Clara Doty RN)2335 (Given - Provider: Clara Doty RN) morphine injection 2 mg (CANCELED) 2 mg, IV, EVERY 3 HOURS PRN, Starting on 12/04/13 at 1359, Until 12/08/13 at 0912, Pain, Break-Through, Routine 0331 (Given - Provider: Roddy Marley RN) ondansetron (ZOFRAN) 4 mg/2 mL injection 4 mg (CANCELED) 4 mg, IV, EVERY 6 HOURS PRN, Starting on 12/04/13 at 1359, Until 12/10/13 at 1209, Nausea/Emesis, Routine 0412 (Given - Provider: Clara Doty RN)2334 (Given - Provider: Clara Doty RN) oxyCODONE-acetaminophen [...] RN) documented in this encounter Care Teams Director Of Casino Marketing Relationship Specialty Start Date End Date Jareth Lopez MD [address] [place] [address] PCP - General Family Practice 04/11/13 documented as of this encounter
--- OUTSIDE RECORDS SUMMARY | 2024-09-27 17:41 | XMS_ITS | Encounter Summary ---
Author Organization [facility] Address [address] [place] [address] Care Team Providers Care Supervisor Enrobing Name Role Phone Jareth Lopez MD Primary Care Provider Encounter Details Date Type Department Care Team (Late st Contact Info) Description 09/18/2013 Abstract [facility] Surgical Spec [place] [address] [place] [id number] Provider, Abstract NO ADDRESS ON FILE Social [...] on filedocumented in this encounter Care Teams Supervisor Enrobing Relationship Specialty Start Date End Date Jareth Lopez MD [address] [place] [address] PCP - General Family Practice 04/11/13 documented as of this encounter
--- OUTSIDE RECORDS SUMMARY | 2024-09-27 17:41 | XMS_ITS | Encounter Summary ---
Author Organization [facility] Address [address] [place] [address] Care Team Providers Care Musical Therapist Name Role Phone Jareth Lopez MD Primary Care Provider [phone] Encounter Details Date Type Department Care Team (Late st Contact Info) Description 10/17/2013 Abstract [facility] Surgical Spec [place] [address] [address] Judy Stout, RN [address] [facility] [address] [place] [address] Social History Tobacco Use Types Packs/Day Years [...] on filedocumented in this encounter Care Teams Musical Therapist Relationship Specialty Start Date End Date Jareth Lopez MD [address] [place] [address] PCP - General Family Practice 04/11/13 documented as of this encounter
--- OUTSIDE RECORDS SUMMARY | 2024-09-27 17:41 | XMS_ITS | Encounter Summary ---
Author Organization [facility] Address [address] [place] [address] Care Team Providers Care Endodontist Name Role Phone Jareth Lopez MD Primary Care Provider [phone] Encounter Details Date Type Department Care Team (Late st Contact Info) Description 10/13/2013 Orders Only [facility] Surgical Spec [place] [address] [place] [address] Andi Marley MD [address] [place] [address] Social History Tobacco Use Types [...] on filedocumented in this encounter Care Teams Endodontist Relationship Specialty Start Date End Date Jareth Lopez MD [address] [place] [address] PCP - General Family Practice 04/11/13 documented as of this encounter
--- OUTSIDE RECORDS SUMMARY | 2024-09-27 17:41 | XMS_ITS | Encounter Summary ---
Author Organization [facility] Address [address] [place] [address] Care Team Providers Care Filling Winder Name Role Phone Jareth Lopez MD Primary Care Provider Encounter Details Date Type Department Care Team (Late st Contact Info) Description 09/20/2013 Orders Only [facility] Surgical Spec [place] [address] [place] [phone] Provider, Abstract NO ADDRESS ON FILE Social [...] Procedure Name Priority Date/Time Associated Diagnosis Comments PATHOLOGY REPORT Routine 09/18/2013 PATHOLOGY REPORT Routine 09/08/2013 PATHOLOGY REPORT Routine 09/08/2013 documented in this encounter Results * PATHOLOGY REPORT (09/18/2013) Abstract Provider PATHOLOGY/CYTOLOGY O RDERABLES Performing Organization Address [facility]/ZIP Co de Phone Number [facility] Second & Fourth [facility] CLIA# [id number] [address] [address] * PATHOLOGY REPORT (09/08/2013) Abstract Provider PATHOLOGY/CYTOLOGY O RDERABLES Performing Organization Address City/[facility]/ZIP Co de Phone Number [facility] LABORATORY [facility] CLIA# [id number] [address] [place], [place] [address] * PATHOLOGY REPORT (09/08/2013) Abstract Provider PATHOLOGY/CYTOLOGY O RDERABLES [facility] LABORATORY SERVICES [facility]# [id number] [address] [place] [address] documented in this encounter Visit Diagnoses Not on filedocumented in this encounter Care Teams Filling Winder Relationship Specialty Start Date End Date Jareth Lopez MD [address] [place] [address] PCP - General Family Practice 04/11/13 documented as of this encounter
--- OUTSIDE RECORDS SUMMARY | 2024-09-27 17:41 | XMS_ITS | Encounter Summary ---
Author Organization [facility] Address [address] [place] [address] Care Team Providers Care Office Support Specialist Name Role Phone Jareth Lopez MD Primary Care Provider Reason for Visit * Reason Onset Date Comments Nausea 12/14/2013 Encounter Details Date Type Department Care Team (Late st Contact Info) Description 12/14/2013 Telephone [facility] Surgical Spec [place] [address] [place] [address] Judy Suh, [place] Nausea Social History Tobacco Use Types Packs/Day Years [...] on filedocumented in this encounter Care Teams Office Support Specialist Relationship Specialty Start Date End Date aJreth Lopez MD [address] [place] [address] PCP - General Family Practice 04/11/13 documented as of this encounter
--- OUTSIDE RECORDS SUMMARY | 2024-09-27 17:41 | XMS_ITS | Encounter Summary ---
Author Organization [facility] Address [address] [place] [address] Care Team Providers Care Devops Engineer Name Role Phone Jareth Lopez MD Primary Care Provider Encounter Details Date Type Department Care Team (Late st Contact Info) Description 11/07/2013 Abstract [facility] Surgical Spec [place] [address] [facility] [address] [place] [address] Provider, Abstract NO ADDRESS ON FILE Social [...] on filedocumented in this encounter Care Teams Devops Engineer Relationship Specialty Start Date End Date Jareth Lopez MD [address] [place] [address] PCP - General Family Practice 04/11/13 documented as of this encounter
--- OUTSIDE RECORDS SUMMARY | 2024-09-27 17:41 | XMS_ITS | Encounter Summary ---
Author Organization [facility] Address [address] [place] [address] Care Team Providers Care Piano Maker Name Role Phone Jareth Lopez MD Primary Care Provider Reason for Visit * Reason Comments Cyst pancreatic Encounter Details Date Type Department Care Team (Late st Contact Info) Description 04/11/2013 3:30 PM CDT Office Visit [facility] Surgical Spec [place] [address] [place] [address] Andi Marley MD [address] [facility] [address] [place] [address] Pancreas cyst (Primary Dx) Social [...] Sign Reading Time Taken Comments Blood Pressure 132/62 04/11/2013 2:55 PM CDT Pulse 85 04/11/2013 2:55 PM CDT Temperature - - Respiratory Rate 16 04/11/2013 2:55 PM CDT Oxygen Saturation - - Inhaled Oxygen Concentration - - Weight 85.7 kg (189 lb) 04/11/2013 2:55 PM CDT Height 163.8 cm (5' 4.5 ) 04/11/2013 2:55 PM CDT Body Mass Index 31.94 04/11/2013 2:55 PM CDT documented in this encounter Progress Notes * Andi Marley MD - 04/13/2013 3:31 PM CDT Subjective: 62-year-old female who recently had an attack of diverticulitis and underwent a subsequent CT scan which demonstrated masses in her pancreas. She is recovered well from her diverticulitis is not require any surgery. She is having no pain currently. She has no trouble bowel movements. She is having no fevers. She's never had upper abdominal pain. She does have a CT scan which shows a mass in the head of her pancreas measuring 4 mm nature which was evaluated with an endoscopic ultrasound and MRCP. The masses in her pancreatic head/uncinate process arm cystic masses and the CEA level is low but the cytology on this was lost and so I do not know if they contained use in or not. Patient Active Problem List Diagnosis Date Noted [...] major depressive episodes requiring hospitalization Objective: BP 132/62 Pulse 85 Resp 16 Ht 5' 4.5 (1.638 m) Wt 189 lb (85.73 kg) BMI 31.95 kg/m2 General: Alert, cooperative, no distress, appears [...] and pelvis was reviewed by myself from an outside facility which demonstrated a West 1 cm mass in a pancreatic uncinate process with no surrounding lymphadenopathy. 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 Jones (45min). Given the size of the masses and the fact that the pathology/cytology was not able to be obtained from the mass as I do not think that surgical intervention is warranted at this time. I did explain to the patient that these lesions to carry at malignant potential and if they do grow to greater than 3 cm I would recommend surgery. I do not recommend surgery at this point as the patient's neoplasms are a low risk at this point which has less risk than the surgery to remove them which would include a pancreaticoduodenectomy or Whipple procedure. I did explain the procedure to the patient which includes removal of her head of the pancreas/gallbladder/duodenum/bile duct with subsequent reconstruction and a 1-2 week hospital stay with subsequent 1% mortality and 20 a 30% morbidity. We talked about the postoperativerecovery out of the hospital as well documented in this encounter Plan of Treatment Not on file documented as of this encounter Visit Diagnoses Diagnosis Pancreas cyst- Primary Cyst and pseudocyst of pancreas documented in this encounter Care Teams Piano Maker Relationship Specialty Start Date End Date Jareth Lopez MD [address] [place] [address] PCP - General Family Practice 04/11/13 documented as of this encounter
--- OUTSIDE RECORDS SUMMARY | 2024-09-27 23:25 | XMS_ITS | Encounter Summary ---
Author Organization [facility] Address [address] [place] [address] Care Team Providers Care [place] Dental Lab Technician Name Role Phone Jareth Lopez MD Primary Care Provider [phone] Encounter Details Date Type Department Care Team [...] on filedocumented in this encounter Care Teams [place] Dental Lab Technician Relationship Specialty Start Date End Date Jareth Lopez MD [address] [place] [address] PCP - General 05/31/09 documented as of this encounter
--- OUTSIDE RECORDS SUMMARY | 2024-09-27 23:25 | XMS_ITS | Clinical Summary ---
Author Organization [facility] Address [address] [place] [address] Care Team Providers Care Education Program Associate Name Role Phone Jareth Lopez MD Primary Care Provider [phone] Source Comments [facility],non-owned Affiliates and Associated Physician Practices is amultiple site organization consisting of ambulatory clinics and hospital sitesin [place], [place], [place] and [place]. This disclosure is being madepursuant to the Care Everywhere program and may not contain all information available regarding this patient. Last updated 18.[facility] Allergies Active Allergy Reactions Criticality Noted Date [...] age to complete this topic Care Teams Education Program Associate Relationship Specialty Start Date End Date Jareth Lopez MD [address] [place] [address] PCP - General 05/31/09
--- OUTSIDE RECORDS SUMMARY | 2024-09-27 23:25 | XMS_ITS | Clinical Summary ---
Author Organization [facility] Care Team Providers Care Asphalt Paving Superintendent Name Role Phone Unavailable Primary Care Provider Unavailabl e Allergies Active Allergy Reactions Criticality Noted Date Comments Adhesive Tape Unknown Codeine Sulfate Unknown Other Unknown metals Penicillins Unknown Sulfa Antibiotics Unknown Medications methylcellulose (CITRUCEL) 500 MG Tablet daily. Active Multiple Vitamin (MULTI-VITAMIN) Tablet daily. Active Calcium Carbonate-Vit D-Min (CALTRATE 600+D PLUS MINERALS) 600-800 MG-UNIT Chewable Tablet daily. Active Probiotic Product (Sequence) Capsule daily. Acti ve Ginkgo Biloba 120 [...]
--- OUTSIDE RECORDS SUMMARY | 2024-09-27 23:25 | XMS_ITS | Patient Health Summary ---
Author Organization [facility] Address [address] [place] [address] Care Team Providers Care Entomology Professor Name Role Phone Jareth Lopez MD Primary Care Provider [phone] Note from [facility],non-owned Affiliates and Associated Physician Practices is amultiple site organization consisting of ambulatory clinics and hospital sitesin [place], [place] and [place]. This disclosure is being madepursuant to the Care Everywhere program and may not contain all information available regarding this patient. Last updated 18.[facility] Allergies * Codeine(Shortness of Breath) * Penicillins(Shortness [...] - CHEMISTRY ORD ERABLES Performing Organization Address City/State/[facility] Co de Phone Number [facility] [address] [place] [address], [facility] Care Teams Entomology Professor Relationship Specialty Start Date End Date Jareth Lopez MD [address] [place] [address] PCP - General 05/31/09
--- OUTSIDE RECORDS SUMMARY | 2024-09-27 23:25 | XMS_ITS | Encounter Summary ---
Author Organization [facility] Address [address] [place] [address] Care Team Providers Care Mortgage Funder Name Role Phone Jareth Lopez MD Primary Care Provider [phone] Encounter Details Date Type Department Care Team (Late st Contact Info) Description 12/30/2020 Orders Only [facility] Medical Group - COVID Vax [address] [place] [address] Sanjay Dinh MD [address] [facility] [address] [address] [place] [address] Need for vaccination Social History [...] disease documented in this encounter Care Teams Mortgage Funder Relationship Specialty Start Date End Date Jareth Lopez MD [address] [place] [address] PCP - General 05/31/09 documented as of this encounter
--- OUTSIDE RECORDS SUMMARY | 2024-09-27 23:25 | XMS_ITS | Encounter Summary ---
Author Organization [facility] Address [address] [address] Care Team Providers Care Jailer Chief Name Role Phone Jareth Lopez MD Primary Care Provider [phone] Encounter Details Date Type Department Care Team (Late st Contact Info) Description 04/19/2020 10:00 AM CDT Office Visit [facility] [address] [place] [address] Provider, Joie Exp Nameokcydney Encounter [...] patient. Patient tolerated well. Megan Reed APRN, AUTO SALVAGE WORKER-C documented in this encounter Plan of Treatment Not on file documented as of this encounter Visit Diagnoses Diagnosis Encounter for vaccination- Primary documented in this encounter Care Teams Jailer Chief Relationship Specialty Start Date End Date Jareth Lopez MD [address] [place] [address] PCP - General 05/31/09 documented as of this encounter
--- OUTSIDE RECORDS SUMMARY | 2024-09-27 23:25 | XMS_ITS | Referral Summary ---
Author Organization [facility] Address [address] [place] [address] Care Team Providers Care Cut Off Saw Operator Name Role Phone Jareth Lopez MD Primary Care Provider [phone] Source Comments [facility],non-owned Affiliates and Associated Physician Practices is amultiple site organization consisting of ambulatory clinics and hospital sitesin [place], [place], [place] and [place]. This disclosure is being madepursuant to the Care Everywhere program and may not contain all information available regarding this patient. Last updated 18.[facility] Allergies Active Allergy Reactions Criticality Noted [...] of Treatment Not on file Care Teams Cut Off Saw Operator Relationship Specialty Start Date End Date Jareth Lopez MD [address] [place] [address] PCP - General 05/31/09
--- OUTSIDE RECORDS SUMMARY | 2024-09-27 23:26 | XMS_ITS | Encounter Summary ---
Author Organization [facility] Address [address] [place] [address] Care Team Providers Care Insolvency Practitioner Name Role Phone Jareth Lopez MD Primary Care Provider [phone] Reason for Referral * Outpatient Services (Routine) - Closed Specialty Diagnoses / Procedures Referred By Armandoac t Referred To Contact CT Scan Diagnoses Pancreatic adenocarcinoma Procedures CT ABDOMEN PELVIS W CONTRAST Andi Marley MD [address] [place] [phone] Referral ID Status Reason Start Date Expiration Date V isits Requested Visits Authorized [id number] Closed [facility] CTS 12/13/2018 01/11/2019 1 1 Reason for Visit * Outpatient Services (Routine) - Closed Specialty Diagnoses / Procedures Referred By Contmaggie gibbs Referred To Contact CT Scan Diagnoses Pancreatic adenocarcinoma Procedures CT ABDOMEN PELVIS W CONTRAST Andi Marley MD [address] [place] [phone] Referral ID Status Reason Start Date Expiration Date V isits Requested Visits Authorized [id number] Closed [facility] CTS 12/13/2018 01/11/2019 1 1 Encounter Details Date Type Department Care Team (Latest Contact Info) Description 12/16/2018 6:18 AM CDT - 12/16/2018 11:59 PM CDT Hospital Encounter [facility] CT Scan [address] [place] [address] Andi Marley MD [address] [facility] [address] [place] [address] Discharge Disposition: Home or Self [...] 1 TABLET BY MOUTH ONCE DAILY 11/14/2018 empagliflozin/metformi n HCl (SYNJARDY ORAL)Indications:2 a day [...] by mouth daily. L GASSERI/B BIFIDUM/B LONGUM (ChipIn ORAL) Take by mouth. docusate sodium (COLACE) 100 mg capsule Take 100 mg by mouth 2 times daily as needed for Constipation. 04/16/2021 documented as of this encounter Progress Notes * Minnie Roman, [place] - 12/16/2018 7:48 AM CDT For any pts 50 yrs of age or older, or any one with any history of renal disease; will need a creatine/GFR results from the past [address] Instructed pt to drink water for next 48 hrs to help flush contrast out of system. States understanding. * Minnie Roman RN - 12/16/2018 7:47 AM CDT IMAGING SERVICES- CT, MRI MEDICATION and FLUSH PROTOCOL [facility] ORDERS ARE ENTERED ???PER PROTOCOL?? Enter the protocol in the patient???s electronic health record using [employer]: .imagingctmriprotoIPDIA Communication Orders: o For ordered imaging procedures [...] 15 minutes prior to procedure) ??? Sucrose 24%(Tootsweet; Sweet-Ease) oral solution 0.2 mL oral (apply to tongue on pacifier or clean, gloved finger), ONE TIME 2 minutes prior to painful procedure. May repeat dose x1 PRN to complete procedure. o Sodium chloride 0.9% (normal saline) flush 10 mLs PRN for saline lock or medication administration. o For respiratory distress, initiate oxygen and/or increase O2 to maintain saturation greater than 90% PROCEDURE SPECIFIC MEDICATIONS ??? Cystogram (CT Pelvis): Iopamidol (Isovue 300) 61%, 50mL, diluted with 250mL of sterile NS. Inject Isovue into 250mL bag ofNS.. Clamp lorenzo catheter prior to instilling solution via catheter. o Instill up to 300mL of Isovue and NS solution into bladder via catheter, one time. CT ORAL CONTRAST PROTOCOLS FOR ADULTS ??? Use Iohexol (Omnipaque) 240 mg/mL for CT scan unless patient has a documented allergy to contrast dye. ??? If allergy present, use Barium Sulfate (EZ Paque) for procedure. ??? If at any time the Med Peds has a question about which option to administer, seek clarification from a Radiologist. o Iohexol (Omnipaque) 240 mg/mL: 50ml added to 960mL of clear liquid of patient???s choice. Preferred route is oral. May use [...] selected for procedure. ??? Barium Sulfate (EZ Paque) 96% oral suspension: preferred route is oral. May use nasoenteric tube if needed. Pampa to 3 months Administer up to 90mL [...] solution with the pateint???s nurse to CT Administer 45mL of diluted Iohexol oral solution, [...] 30 min x [address] RECTAL CONTRAST PROTOCOLS ADULTS: o Iohexol (Omnipaque) 240 mg/mL: Dilute 50mL of Omnipaque with 900mL of warm water in an enema bag.Administer the diluted solution rectally via gravity per patient???s tolerance, up to 950mLs, one time only. CT IV CONTRAST PROTOCOLS for ADULT ADULTS: (If patient is less than 55kg and confirm dose with radiologist) o Iopadmidol (Isovue-300): Administer 2.2mL/kg of Iopamidol 61%, intravenously, one time only. o See table below for maximum dose, unless otherwise authorized by radiologist.If exam has been completed before the entire dose has been administered, stop the injection. o If exam not included in table below, contact radiologist for orders. Procedure Maximum Dose CT Head with Contrast Up to [address] Chest with Contrast Up to [address] Maxilofacial with Contrast Up to [address] Soft Tissue Neck with Contrast CT Chest Abdomen Pelvis with Contrast CT Chest Abdomen with Contrast CT Abdomen Pelvis with Contrast CT Pelvis with Contrast CT Angiogram Examinations (all) CT Soft Tissue Neck and Chest Abomen Pelvis with Contrast Up to [address] Soft Tissue Neck and Chest with Contrast CT Urogram with Contrast CT IV CONTRAST PROTOCOLS for PEDIATRICS PEDIATRICS: Use weight based dosing if patient is less than 55kg and confirm dose with radiologist. Pampa to 15 years old Administer 2.2mL/kg (to MAX of 80 mL) of Iopamidol (Isovue-300) 61%, intravenously, one time only 15 years old and older Administer 2.2mL/kg (to MAX of 150mL) of Iopamidol (Isovue-300) 61%, intravenously, one time only MRI IV CONTRAST PROTOCOLS ADULTS: o Multihance and Prohance can be used for most MRI scans o For Liver studies, contact Radiologist to determine use of one of the following: o Gadobenate Dimeglumine (Multihance) (0.1mmol/0.2mL), Administer 0.1mmol/kg = 0.2mL/kg up to MAX of 30mL, intravenously, one time only o Gadoteridol (Prohance) (0.1mmol/0.2mL), Administer 0.1mmol/kg = 0.2mL/kg up to MAX of 30mL, intravenously, one time only o Gadoxetate (Eovist) 2.5 mmol/10mL, Administer 0.025mmol/kg = 0.1mL/kg MAX of 15mL, intravenously,one time only PEDIATRICS: o Radiologist to determine need and type of contrast Term neonates up to 2 years: Gadobutrol (Gadavist) 1mmol/mL injection, Administer 0.1mmol/kg = 0.1mL/kg up to MAX of 14mmol = 14mL, intravenously, one time only 2 years and older Gadobenate Dimeglumine (Multihance) (0.1mmol/0.2mL),Administer 0.1mmol/kg = 0.2mL/kg up to MAX of 20mL intravenously, one time only OR Gadoteridol (Prohance) (0.1mmol/0.2mL), Administer 0.1mmol/kg = 0.2mL/kg up to MAX of 20mL, intravenously, one time only Initiati Initi Initiating Department(s): 10/2013 Nuclear Medicine and Pharmacy Reviewed: 07/2014 ,02/2016, 02/2017; 05/2017; 10/2017; 02/2018; 05/2018 Revised: 07/2014, 11/2016, 02/2017; 05/2017; 10/2017; 02/2018; 05/2018 Approved by: Medical Executive Committee, Imaging Services, and Pharmacy & Therapeutics Committee Date: 06/2018 documented in this encounter Miscellaneous Notes * Treatment Plan - Bell Constantino, RT - 12/16/2018 7:53 AM CDT IMAGING SERVICES- CT, MRI MEDICATION and FLUSH PROTOCOL [facility] ORDERS ARE ENTERED ???PER PROTOCOL?? Enter the protocol in the patient???s electronic health record using for; to (do) [employer]: .imagingctmriprotocoCX Communication Orders: o For ordered imaging procedures [...] 15 minutes prior to procedure) ??? Sucrose 24%(Tootsweet; Sweet-Ease) oral solution 0.2 mL oral (apply to tongue on pacifier or clean, gloved finger), ONE TIME 2 minutes prior to painful procedure. May repeat dose x1 PRN to complete procedure. o Sodium chloride 0.9% (normal saline) flush 10 mLs PRN for saline lock or medication administration. o For respiratory distress, initiate oxygen and/or increase O2 to maintain saturation greater than 90% PROCEDURE SPECIFIC MEDICATIONS ??? Cystogram (CT Pelvis): Iopamidol (Isovue 300) 61%, 50mL, diluted with 250mL of sterile NS. Inject Isovue into 250mL bag ofNS.. Clamp lorenzo catheter prior to instilling solution via catheter. o Instill up to 300mL of Isovue and NS solution into bladder via catheter, one time. CT ORAL CONTRAST PROTOCOLS FOR ADULTS ??? Use Iohexol (Omnipaque) 240 mg/mL for CT scan unless patient has a documented allergy to contrast dye. ??? If allergy present, use Barium Sulfate (EZ Paque) for procedure. ??? If at any time the Med Peds has a question about which option to administer, seek clarification from a Radiologist. o Iohexol (Omnipaque) 240 mg/mL: 50ml added to 960mL of clear liquid of patient???s choice. Preferred route is oral. May use [...] selected for procedure. ??? Barium Sulfate (EZ Paque) 96% oral suspension: preferred route is oral. [...] solution with the pateint???s nurse to CT Administer 45mL of diluted Iohexol oral solution, [...] 30 min x [address] RECTAL CONTRAST PROTOCOLS ADULTS: o Iohexol (Omnipaque) 240 mg/mL: Dilute 50mL of Omnipaque with 900mL of warm water in an enema bag.Administer the diluted solution rectally via gravity per patient???s tolerance, up to 950mLs, one time only. CT IV CONTRAST PROTOCOLS for ADULT ADULTS: (If patient is less than 55kg and confirm dose with radiologist) o Iopadmidol (Isovue-300): Administer 2.2mL/kg of Iopamidol 61%, intravenously, one time only. o See table below for maximum dose, unless otherwise authorized by radiologist.If exam has been completed before the entire dose has been administered, stop the injection. o If exam not included in table below, contact radiologist for orders. Procedure Maximum Dose CT Head with Contrast Up to [address] Chest with Contrast Up to [address] Maxilofacial with Contrast Up to [address] Soft Tissue Neck with Contrast CT Chest Abdomen Pelvis with Contrast CT Chest Abdomen with Contrast CT Abdomen Pelvis with Contrast CT Pelvis with Contrast CT Angiogram Examinations (all) CT Soft Tissue Neck and Chest Abomen Pelvis with Contrast Up to [address] Soft Tissue Neck and Chest with Contrast CT Urogram with Contrast CT IV CONTRAST PROTOCOLS for PEDIATRICS PEDIATRICS: Use weight based dosing if patient is less than 55kg and confirm dose with radiologist. Pampa to 15 years old Administer 2.2mL/kg (to MAX of 80 mL) of Iopamidol (Isovue-300) 61%, intravenously, one time only 15 years old and older Administer 2.2mL/kg (to MAX of 150mL) of Iopamidol (Isovue-300) 61%, intravenously, one time only MRI IV CONTRAST PROTOCOLS ADULTS: o Multihance and Prohance can be used for most MRI scans o For Liver studies, contact Radiologist to determine use of one of the following: o Gadobenate Dimeglumine (Multihance) (0.1mmol/0.2mL), Administer 0.1mmol/kg = 0.2mL/kg up to MAX of 30mL, intravenously, one time only o Gadoteridol (Prohance) (0.1mmol/0.2mL), Administer 0.1mmol/kg = 0.2mL/kg up to MAX of 30mL, intravenously, one time only o Gadoxetate (Eovist) 2.5 mmol/10mL, Administer 0.025mmol/kg = 0.1mL/kg MAX of 15mL, intravenously,one time only PEDIATRICS: o Radiologist to determine need and type of contrast Term neonates up to 2 years: Gadobutrol (Gadavist) 1mmol/mL injection, Administer 0.1mmol/kg = 0.1mL/kg up to MAX of 14mmol = 14mL, intravenously, one time only 2 years and older Gadobenate Dimeglumine (Multihance) (0.1mmol/0.2mL),Administer 0.1mmol/kg = 0.2mL/kg up to MAX of 20mL intravenously, one time only OR Gadoteridol (Prohance) (0.1mmol/0.2mL), Administer 0.1mmol/kg = 0.2mL/kg up to MAX of 20mL, intravenously, one time only Initiati Initi Initiating Department(s): 10/2013 Nuclear Medicine and Pharmacy Reviewed: 07/2014 ,02/2016, 02/2017; 05/2017; 10/2017; 02/2018; 05/2018 Revised: 07/2014, 11/2016, 02/2017; 05/2017; 10/2017; 02/2018; 05/2018 Approved by: Medical Executive Committee, Imaging Services, and Pharmacy & Therapeutics Committee Date: 06/2018 documented in this encounter Plan of Treatment Not on file documented as of this encounter Procedures Procedure Name Priority Date/Time Associated Diagnosis Comments CT ABDOMEN PELVIS W CONTRAST Routine 12/16/2018 8:17 AM CDT Pancreatic adenocarcinoma POC CREATININE Routine 12/16/2018 8:09 AM CDT documented in this encounter Results * CT ABDOMEN PELVIS W CONTRAST (12/16/2018 8:17 AM CDT) Anatomical Region Laterality Modality Abdomen Computed Tomogra phy 12/16/2018 8:21 AM CDT Impressions 12/16/2018 8:39 AM CDT IMPRESSION: Stable appearance of abdomen and pelvis. No evidence of metastatic or recurrent disease. DICTATION LOCATION: Location [address] [place] [address] 12/16/2018 8:[address] abdomen and [...] or recurrent disease. DICTATION LOCATION: Location 1 [facility] Andi Marley MD CT ORDERABLES * POC CREATININE (12/16/2018 8:09 AM CDT) CREATININE POC 0.90 0.50 - 1.00 mg/dL 12/16/2018 8:14 AM T [facility] [employer] [facility] GFR >60 >=60 mL/min/1.7 3 sq meter 12/16/2018 8:14 AM CDT [facility] [employer] [facility] Comment: eGFR has not been validated [...] GFR, >60 >=60 mL/min/1.7 3 sq meter 12/16/2018 8:14 AM T [facility] [employer] [facility] Blood, capillary 12/16/2018 8:09 AM CDT 12/16/2018 8:14 AM CDT Andi Marley MD POINT OF CARE TESTIN G [facility]# [id number] [address] [place] [address] documented in this encounter Visit Diagnoses Diagnosis Pancreatic adenocarcinoma Malignant neoplasm of pancreas, part unspecified documented in this encounter Administered Medications Inactive Administered Medications - up to 3 most recent administrations Medication Order MAR Action Action Date Dose Rate Site iohexol (OMNIPAQUE) 240 mg/mL oral solution 50 mL 50 mL, Oral, PRE-PROCEDURE ONCE, 1 dose, Starting on Wed12/16/18 at 0753, Until Wed12/16/18 at 0702, Routine Given 12/16/2018 7:02 AM CDT 50 mL iopamidol (ISOVUE-300) 61 % injection 120 mL 120 mL, IV, INTRA-PROCEDURE ONCE, 1 dose, Starting on Wed12/16/18 at 0752, Until Wed12/16/18 at 0817, Routine Contrast Given 12/16/2018 8:17 AM CDT 120 mL sodium chloride flush injection 10 mL 10 mL, IV, SEE ADMIN INSTRUCTIONS, 1 dose, Starting on Wed12/16/18 at 0747, Until Wed12/16/18 at 0807, Routine Given 12/16/2018 8:07 AM CDT 10 mL sodium chloride flush injection 10 mL 10 mL, IV, ONE TIME ONLY, 1 dose, On Wed12/16/18 at 0800, Routine Given 12/16/2018 8:15 AM CDT 10 mL documented in this encounter Care Teams Insolvency Practitioner Relationship Specialty Start Date End Date Jareth Lopez MD [address] [place] [address] PCP - General Family Practice 04/11/13 documented as of this encounter
--- OUTSIDE RECORDS SUMMARY | 2024-09-27 23:26 | XMS_ITS | Encounter Summary ---
Author Organization [facility] Address [address] [place] [address] Care Team Providers Care Diamond Sawer Name Role Phone Jareth Lopez MD Primary Care Provider [phone] Reason for Visit * Auth/Cert Specialty Diagnoses / Procedures Referred By Contmaggie t Referred To Contact Perioperative Diagnoses Cyclical vomiting syndrome unrelated to migraine Personal history of malignant neoplasm of pancreas Procedures ESOPHAGOGASTRODUODENOSCOPY [facility] Lab [address] [place] [address] Referral ID Status Reason Start Date Expiration Date Visits Re quested Visits Authorized [id number] 1 1 Encounter Details Date Type Department Care Team (Latest Contact Info) Description 07/24/2021 6:09 AM CDT - 07/24/2021 8:19 AM T Hospital Encounter [facility] GI Lab S [facility] [address] [place] [address] Edmond Gant MD [address] [address] Cyclical vomiting syndrome unrelated to [...] by mouth daily. L GASSERI/B BIFIDUM/B LONGUM (My-Hammer ORAL) Take by mouth. documented as of [...] cause CP/SOB ??? 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 [...] REPAIR performed by Andi Marley MD at [facility] OR [facility] ??? HX LUMBAR DISKECTOMY Left 03/29/2015 SPINAL MICRODISCECTOMY MINIMALLY INVASIVE - LEFT L5-S1 M.I. DISCECTOMY performed by Truman Streeter MD at [facility] ??? HX SINUS SURGERY ??? HX TONSILLECTOMY age 6 ??? [place] COLONOSCOPY FLX DX W/COLLJ SPEC WHEN PFRMD N/A 04/11/2018 COLONOSCOPY performed by Edmond Gant MD at [facility] GI LAB ??? [place] COLONOSCOPY FLX DX W/COLLJ SPEC WHEN PFRMD N/A 04/24/2021 COLONOSCOPY performed by Edmond Gant MD at [facility] GI LAB ??? [place] ESOPHAGOGASTRODUODENOSCOPY TRANSORAL DIAGNOSTIC N/A 04/11/2018 ESOPHAGOGASTRODUODENOSCOPY performed by Edmond Gant MD at [facility] GI LAB ??? [place] PART REMV PANC,PROX+REMV DUOD 12/04/2013 WHIPPLE performed by Andi Marley MD at [facility] Medications Prior to Admission Medication Sig [...] daily. Past Weekat Unknown time ??? multivitamin (DAILY-JASPER) tablet Take 1 Tab by mouth daily. Past Week at Unknown time ??? triamterene-hydrochlorothiazide (MAXZIDE 25) 37.5-25 mg tablet Take 1 Tab by mouth daily. Past Week at Unknown time ??? L GASSERI/B BIFIDUM/B LONGUM (My-Hammer ORAL) Take by mouth. Past Week at [...] 8:00 AM CDTAssociated Order(s): UPPER ENDOSCOPY REPORT [facility] Endoscopy Patient Name: Elena Fernández Procedure [...] electronically. Number of Addenda: 0 [address] [facility]; [place] [address] * Elena John RN - 07/17/2021 12:35 PM CDT Images from the original note were not included. [facility] GI Nurse Assessment Patient: Elena Fernández : 1950 Endoscopist: Surgeon(s): Edmond Gant MD Upcoming Procedure: Procedure to be Performed: Procedure(s): ESOPHAGOGASTRODUODENOSCOPY Procedure Date/Time: 07/24/2021 at 0700 Diagnosis/Indication for procedure: Pre-Op Diagnosis Codes: * Cyclical vomiting syndrome unrelated to migraine [R11.15] * Personal history of malignant neoplasm of pancreas [Z85.07] Location: [facility] GI LAB Referring Physician: Jareth Lopez [...] REPAIR performed by Andi Marley MD at [facility] ??? HX LUMBAR DISKECTOMY Left 03/29/2015 SPINAL MICRODISCECTOMY MINIMALLY INVASIVE - LEFT L5-S1 M.I. DISCECTOMY performed by Truman Streeter MD at [facility] ??? HX SINUS SURGERY ??? HX TONSILLECTOMY age 6 ??? [place] COLONOSCOPY FLX DX W/COLLJ SPEC WHEN PFRMD N/A 04/11/2018 COLONOSCOPY performed by Edmond Gant MD at [facility] GI LAB ??? [place] COLONOSCOPY FLX DX W/COLLJ SPEC WHEN PFRMD N/A 04/24/2021 COLONOSCOPY performed by Edmond Gant MD at [facility] GI LAB ??? [place] ESOPHAGOGASTRODUODENOSCOPY TRANSORAL DIAGNOSTIC N/A 04/11/2018 ESOPHAGOGASTRODUODENOSCOPY performed by Edmond Gant MD at [facility] GI LAB ??? [place] PART REMV PANC,PROX+REMV DUOD 12/04/2013 WHIPPLE performed by Andi Marley MD at [facility] Past Medical History: Past Medical History: [...] cause CP/SOB ??? 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 ??? L GASSERI/B BIFIDUM/B LONGUM (My-Hammer ORAL) Take by mouth. documented in this encounter OR Notes * Amirah-OP - Candice Aguirre RN - 07/24/2021 6:43 AM CDT Patient/Family discussion included an explanation that: Standard practice for endoscopists at [facility] includes use of an oral bite block to facilitate upper endoscopy and to prevent you from biting onto the scope or yourself during the procedure.This bite block is placed by a [facility] procedure room nurse/communications technician prior to the procedure. Pressure that [...] same day or prompt dental evaluation by [facility] Dental Medicine. * Amirah-OP - Elena John RN - 07/17/2021 12:35 PM CDT Routine Pre-Anesthesia Protocol for GI Lab Procedures [facility] Approved by: [facility] - Medical Executive Committee Approval Date: 02/20/2021 ORDERS ARE ENTERED ???PER PROTOCOL?? Enter the protocol in the patient???s electronic health record using Exabre: .anestprotocolgilab NURSING ORDERS: Monitoring: o Obtain and [...] appropriate, may confirm POC with: Nursing Only [id number] (this lab can be obtained at no [...] injectable antihyperglycemic agents and glucose is less bsry850 mg/dl o NPO patients who have NOT [...] MEDICATION ORDERS - entered by the Pharmacist senior procurement specialist RESCUE ORDERS - entered by the Pharmacist or the electronic instrument trades worker Orders Patient has IV access and UNCONCIOUS, [...] Verbalizes understanding. Pt aware of need for auto driver. All of the patients questions answered. [...] Gant MD - 07/24/2021 8:[address] [facility] Endoscopy Patient Name: Elena Fernández Procedure [...] electronically. Number of Addenda: 0 [address] [facility] [place] [address] Edmond Gant MD GI PROCEDURE ORDERAB LES * POC GLUCOSE (07/24/2021 7:53 AM CDT) GLUCOSE POC 84 74 - 99 mg/dL 07/24/2021 7:53 AM CDT [facility] LAPEL PADDER NAME LÓPEZ MEDINA (SCHOELCH) 07/24/2021 7:53 AM CDT [facility] Blood, whole 07/24/2021 7:53 AM CDT 07/24/2021 8:03 AM CDT Edmond Gant MD POINT OF CARE TESTIN G [facility]# [id number] [address] [place] [address] * PATHOLOGY (07/24/2021 7:45 AM CDT) CASE REPORT Surgical Pathology R eport ? Case: [id number] ? Authorizing Provider: ??Edmond Gant MD ?Collected: ? 07/24/2021 07:45 AM ? Ordering Location: ? [facility] Lab S [address] ??Received: ?07/24/2021 09:26 AM ? Pathologist: ? Staic Lu MD ? Specimen: ?Small Intestine, bx ? 9:37 AM [facility] FINAL DIAGNOSIS Small intestine, biopsy: - Oxyntic mucosa with proton pump inhibitor effect (see microscopic). - No Helicobacter-type organisms identified on routine sections. 9:37 AM [facility] S DESCRIPTION Received in one container labeled Elena Fernández and small intestine biopsy are 4 pieces of pink-mackay tissue ranging from 0.1 to 0.2 cm in greatest dimension. All are submitted in cassette A1. [facility] 9:37 AM [facility] MICROSCOPIC DESCRIPTION The slides are labeled [id number] and Elena Fernández. Although the specimen is labeled small intestine biopsy, the endoscopic report states that biopsies of the gastric body were performed. Histologic sections show oxyntic mucosa with proton pump inhibitor effect with no significant inflammation. No Helicobacter-type organisms are identified on routine sections. 9:37 AM [facility] OPERATIVE PROCEDURE 1: ESOPHAGOGASTRODUODENOSCOP Y 9:37 AM [facility] CLINICAL INFORMATION Small bowel Bx's. Rule out sprue (chronic diarrhea and/or Iron deficiency anemia). Cyclical vomiting syndrome unrelated to migraine [R11.15] Personal history of malignant neoplasm of pancreas [Z85.07] 9:37 AM [facility] COMMENT Special stain and/or immunohistochemical results are interpreted with controls that demonstrate appropriate staining reactions. Note on use of immunocytochemistry reagents: This test was developed and its performance characteristics determined by [facility], Department of Laboratory Medicine. It has [...] part or completely in the following laboratories: [facility], [place] #[id number] [address] [place] [address] [facility] #[id number] [address] [place] [address] [facility]/[place], [place] #[id number] [address] [place] [address] This report was created with the [employer] voice-activated dictation system. Inherent to this system is the possibility of syntax, grammar, punctuation and other errors that could impact the interpretation of the report. If there are interpretative questions about aspects of this report, please contact the performing pathologist. 9:37 AM CDT [facility] Tissue (Small Intestine) Collection / Unknown 07/24/2021 7:45 AM CDT 07/24/2021 9:26 AM CDT Comment:Small bowel Bx's. Ru le out sprue (chronic diarrhea and/or Iron deficiency anemia. Edmond Gant MD PATHOLOGY/CYTOLOGY [facility] [id number] [address] [place] [address] * POC GLUCOSE (07/24/2021 6:52 AM CDT) GLUCOSE POC 98 74 - 99 mg/dL 07/24/2021 6:52 AM CDT [facility] LAPEL PADDER NAME POC OCTAVIO ADAMES 07/24/2021 6:52 AM CDT [facility] Blood, whole 07/24/2021 6:52 AM CDT 07/24/2021 6:59 AM CDT Edmond Gant MD POINT OF CARE TESTIN G [facility] NEAL CLIA# [id number] [address] [place] [address] documented in this encounter Visit Diagnoses Diagnosis [...] Thompson) documented in this encounter Care Teams Diamond Sawer Relationship Specialty Start Date End Date Jareth Lopez MD [address] [place] [address] PCP - General Family Practice 04/11/13 documented as of this encounter
--- OUTSIDE RECORDS SUMMARY | 2024-09-27 23:26 | XMS_ITS | Encounter Summary ---
Author Organization [facility] Address [address] [place] [address] Care Team Providers Care Former Hand Name Role Phone Jareth Lopez MD Primary Care Provider Encounter Details Date Type Department Care Team (Late st Contact Info) Description 12/29/2017 Orders Only [facility] GASTROENTEROLOGY [address] [facility] [address] [place] [address] Edmond Gant MD [address] [facility] [address] [place] [address] Social History Tobacco Use Types [...] on filedocumented in this encounter Care Teams Former Hand Relationship Specialty Start Date End Date Jareth Lopez MD [address] [place] [address] PCP - General Family Practice 04/11/13 documented as of this encounter
--- OUTSIDE RECORDS SUMMARY | 2024-09-27 23:26 | XMS_ITS | Encounter Summary ---
Author Organization [facility] Address [address] [place] [address] Attn: Epic Prelude ADT [place] [address] Care Team Providers Care Public Policy Associate Name Role Phone Jareth Lopez MD Primary Care Provider [phone] Encounter Details Date Type Department Care Team [...] on filedocumented in this encounter Care Teams Public Policy Associate Relationship Specialty Start Date End Date Jareth Lopez MD [address] [place] [address] PCP - General Family Practice 04/11/13 documented as of this encounter
--- OUTSIDE RECORDS SUMMARY | 2024-09-27 23:26 | XMS_ITS | Encounter Summary ---
Author Organization [facility] Address [address] [place] [address] Care Team Providers Care Lead Sharepoint Developer Name Role Phone Jareth Lopez MD Primary Care Provider Reason for Visit * Auth/Cert Specialty Diagnoses / Procedures Referred By Contac t Referred To Contact Gastroenterology Procedures COLONOSCOPY ESOPHAGOGASTRODUODENOSCOP Y [facility] [address] [place] [address] Referral ID Status Reason Start Date Expiration Date Visits Re quested Visits Authorized [id number] 1 1 Encounter Details Date Type Department Care Team (Late st Contact Info) Description 04/11/2018 7:00 AM CDT - 04/11/2018 7:40 AM CDT [facility] [address] [place] [address] Edmond Gant MD [address] [address] COLONOSCOPY Surgery Details Date/Time Status [...] by mouth daily. L GASSERI/B BIFIDUM/B LONGUM (TellWise ORAL) Take by mouth. docusate sodium (COLACE) [...] unspecified MVP ??? 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 [...] Marley MD at [facility] OR [facility] ??? HX LUMBAR DISKECTOMY Left 03/29/2015 SPINAL MICRODISCECTOMY MINIMALLY INVASIVE - LEFT L5-S1 M.I. DISCECTOMY performed by Truman Streeter MD at [facility] OR [facility] ??? HX SINUS SURGERY ??? HX TONSILLECTOMY age 6 ??? DE PART REMV PANC,PROX+REMV DUOD 12/04/2013 WHIPPLE performed by Adni Marley MD at [facility] OR [facility] Prescriptions Prior to Admission Medication Sig Dispense [...] daily. 04/09/2018 ??? L GASSERI/B BIFIDUM/B LONGUM (High[employer] HEALTH ORAL) Take by mouth. 12/15/2016 ??? [...] 04/11/2018 8:19 AM CDTAssociated Order(s): COLONOSCOPY REPORT [facility] Endoscopy Patient Name: Elena Fernández Procedure [...] Addenda: [address]; [place] [address] * Edmond Gant MD - 04/11/2018 8:15 AM CDTAssociated Order(s): UPPER ENDOSCOPY REPORT [facility] Endoscopy Patient Name: Elena Fernández Procedure [...] electronically. Number of Addenda: 0 [address] [facility]; [place] [address] documented in this encounter OR Notes * Amirah-OP - Fabiola Sapp RN - 04/11/2018 6:38 AM CDT Patient/Family discussion included an explanation that: Standard practice for endoscopists at [facility] includes use of an oral bite block to facilitate upper endoscopy and to prevent you from biting onto the scope or yourself during the procedure.This bite block is placed by a [facility] procedure room nurse/histologic technician prior to the procedure. Pressure that [...] same day or prompt dental evaluation by [facility] Dental Medicine. * Amirah-OP - Fabiola Sapp RN - 04/11/2018 6:38 AM CDT Routine Pre-Anesthesia Protocol for GI Lab Procedures ?? [facility] ? ORDERS ARE ENTERED ???PER PROTOCOL? Enter the protocol in the patient???s electronic health record using [employer]: .anestprotocolgilab ?? NURSING ORDERS: Monitoring: ?? Obtain [...] appropriate, may confirm POC with: Nursing Only [id number] (this lab can be obtained at no [...] MEDICATION ORDERS - entered by the Pharmacist scientific advisor ? Meter Glucose less than 70, patient [...] Gant MD - 04/11/2018 8:19 AM CDT [facility] Endoscopy Patient Name: Elena Fernández Procedure [...] of Addenda: 0 [address] ; [place] [address] Edmond Gant MD GI PROCEDURE ORDERAB LES * UPPER ENDOSCOPY REPORT (04/11/2018 8:16 AM CDT) Narrative Procedure Note Edmond Gant MD - 04/11/2018 8:15 AM CDT [facility] Endoscopy Patient Name: Elena Fernández Procedure [...] of Addenda: 0 [address] ; [place] [address] Edmond Gant MD GI PROCEDURE ORDERAB LES * (ABNORMAL) POC GLUCOSE (04/11/2018 8:12 AM CDT) GLUCOSE POC 114(H) 74 - 99 mg/dL 04/11/2018 8:24 AM CDT [facility] Faves [facility] HOT ROLL INSPECTOR NAME JUAN GOODMAN 04/11/2018 8:24 AM CDT [facility] Whole blood specimen (specimen) 04/11/2018 8:12 AM CDT 04/11/2018 8:24 AM CDT Edmond Gant MD POINT OF CARE TESTIN G [facility] CLIA# [id number] [address] [place] [address] * PATHOLOGY (04/11/2018 7:39 AM CDT) CASE REPORT Surgical Pathology Report ? Case: [id number] ? Authorizing Provider: ??Edmond Gant MD ?Collected: ? 04/11/2018 07:39 AM ? Ordering Location: ? [facility] [address] ??Received: ?04/11/2018 08:56 AM ? Pathologist: ? Liborio Wall, DO ? Specimens: ?? A) - Stomach, distal stomach nodule ? B) - Colon, right polyps ? 04/12/2018 6:11 PM [facility] Faves [facility] FINAL DIAGNOSIS Stomach, distal nodule, endoscopic biopsy: - Hyperplastic polyp, inflamed. - Adjacent mucosa with reactive (chemical) gastropathy. Large bowel, right colon polyps, endoscopic biopsy: - Tubular adenoma. - Sessile serrated adenoma, several fragments. 04/12/2018 6:11 PM [facility] Faves [facility] IMEN DESCRIPTION (A) Distal stomach nodule; (B) right colon polyps. 04/12/2018 6:11 PM [facility] OPERATIVE PROCEDURE Colonoscopy and EGD. 04/12/2018 6:11 PM [facility] CLINICAL DIAGNOSIS (A) Rule out dysplasia. (B) Colon polyp(s). Adenomatous vs. hyperplastic vs. other. 04/12/2018 6:11 PM [facility] GROSS DESCRIPTION Received are two containers labeled [...] B4-one piece trisected. ABEL/cassy 04/12/2018 6:11 PM [facility] Faves [facility] MICROSCOPIC DESCRIPTION The slides are received labeled [id number] and Elena Fernández. Sections of the distal [...] carcinoma is identified. 04/12/2018 6:11 PM CDT [facility] COMMENT Special stain and/or immunohistochemical results are interpreted with controls that demonstrate appropriate staining reactions. Note on use of immunocytochemistry reagents: This test was developed and its performance characteristic determined by [facility], Department of Laboratory Medicine. It has [...] WF, WB and WH are performed by [address], [address]. All other case types are performed by [facility] [address] [facility], [address]. 04/12/2018 6:11 PM CDT [facility] Tissue ENTIRE STOMACH / Unknown Collection / Unknown 04/11/2018 7:39 AM CDT 04/11/2018 8:56 AM CDT Comment:R/o dysplasia Tissue specimen (specimen) SPECIMEN FROM COLON / Unknown 04/11/2018 7:56 AM CDT 04/11/2018 8:56 AM CDT Comment:Colon Polyp(s). El omatous vs hyperplastic vs other. Edmond Gant MD PATHOLOGY/CYTOLOGY O RDERABLES [facility] CLIA# [id number] [address] [place] [address] [place] [address] * (ABNORMAL) POC GLUCOSE (04/11/2018 6:50 AM CDT) GLUCOSE POC 121(H) 74 - 99 mg/dL 04/11/2018 7:05 AM CDT [facility] LABORATORY [facility] COMMENT, GLU POC Notified RN/MD 04/11/2018 7:05 AM CDT [facility] LABORATORY [facility] HOT ROLL INSPECTOR NAME POC FABIOLA SAPP 04/11/2018 7:05 AM CDT [facility] LABORATORY [facility] Whole blood specimen (specimen) 04/11/2018 6:50 AM CDT 04/11/2018 7:05 AM CDT Edmond Gant MD POINT OF CARE TESTIN G [facility] LABORATORY [facility] CLIA# [id number] [address] [place] [address] documented in this encounter Visit Diagnoses Not [...] RN) documented in this encounter Care Teams Lead Sharepoint Developer Relationship Specialty Start Date End Date Jareth Lopez MD [address] [place] [phone] PCP - General Family Practice 04/11/13 documented as of this encounter
--- OUTSIDE RECORDS SUMMARY | 2024-09-27 23:26 | XMS_ITS | Encounter Summary ---
Author Organization [facility] Address [address] [place] [address] Care Team Providers Care Time Study Technologist Name Role Phone Jareth Lopez MD Primary Care Provider Reason for Visit * Reason Comments Follow Up pancreatic ca 1 year check, hx whipple Encounter Details Date Type Department Care Team (Latest Contact Info) Description 12/16/2018 10:00 AM CDT Office Visit [facility] Surgical Spec [place] [id number] [place] [address] Andi Marley MD [address] [place] [address] Pancreatic adenocarcinoma (Primary Dx); Uncomplicated [...] unspecified MVP ??? Temporomandibular joint disorder wears guard entrance [...] REPAIR performed by Andi Marley MD at [facility] OR [facility] ??? HX LUMBAR DISKECTOMY Left 03/29/2015 SPINAL MICRODISCECTOMY MINIMALLY INVASIVE - LEFT L5-S1 M.I. DISCECTOMY performed by Truman Streeter MD at [facility] OR [facility] ??? HX SINUS SURGERY ??? HX TONSILLECTOMY age 6 ??? [place] COLONOSCOPY FLX DX W/COLLJ SPEC WHEN PFRMD N/A 04/11/2018 COLONOSCOPY performed by Edmond Gant MD at [facility] GI LAB ??? [place] ESOPHAGOGASTRODUODENOSCOPY TRANSORAL DIAGNOSTIC N/A 04/11/2018 ESOPHAGOGASTRODUODENOSCOPY performed by Edmond Gant MD at [facility] GI LAB ??? [place] PART REMV PANC,PROX+REMV DUOD 12/04/2013 WHIPPLE performed by Anid Marley MD at [facility] OR [facility] (Not in a hospital admission) Allergies [...] unspecified documented in this encounter Care Teams Time Study Technologist Relationship Specialty Start Date End Date Jareth Lopez MD [address] [place] [phone] PCP - General Family Practice 04/11/13 documented as of this encounter
--- OUTSIDE RECORDS SUMMARY | 2024-09-27 23:26 | XMS_ITS | Clinical Summary ---
Author Organization [facility] Address [address] [place] [address] Phone Care Team Providers Care Engineering Test Specialist Name Role Phone Jareth Lopez MD Primary Care Provider Allergies Active Allergy Reactions Criticality Noted Date Comments Adhesive Other (See Comments) Low 04/11/2013 Blisters Codeine Other (See Comments) 04/11/2013 Respiratory arrest Nickel Other (See Comments) Low 04/11/2013 Sores Mkbnc-4-Wcu-Fish Oil Unknown 01/22/2023 Oxycodone Other (See Comments) 03/21/2015 Can tolerate small dose Penicillins Anaphylaxis High 04/11/2013 Sulfa (Sulfonamide Antibiotics) Hives High 04/11/2013 Medications Medication Sig Dispensed Refills Start Date End Date Status triamterene-hydroch lorothiazide (MAXZIDE 25) 37.5-25 mg tablet Take 1 Tab by mouth daily. Active L GASSERI/B BIFIDUM/B LONGUM (Thoughtful Movers HEALTH ORAL) Take by mouth. Active omeprazole (PRILOSEC) 20 mg Capsule, Delayed Release(E.C.) Take 20 mg by mouth daily. Active multivitamin (DAILY-JASPER) tablet Take 1 Tab by [...] 04/19/2030 04/19/2020 Medical Devices Implanted Type Area Falafel Cart Cook Device Identifier Shelf Expiration Date Model / Serial / Lot Tube Feed Dickerson [id number] - [id number] Implanted:Qty : 1 on 12/04/2013 by Andi Marley MD at [facility] Feeding Device CLIFF- [place] [id number] / / [id number] Description:used as stent in duct Mesh Proceed Med Pvpm - Spvpm Implanted:Qty : 1 on 02/07/2016 by Andi Marley MD at [facility] Mesh N/A: Abdomen J[employer]J- [employer] 06/03/2017 PVPM / PVPM / [id number] Sealant Floseal W/ Adptr 10ml [id number] - [id number] Implanted:Qty : 1 on 03/29/2015 by Truman Streeter MD at [facility] Sealant Left: Spine Lumbar [id number]- [id number] 06/03/2016 [id number] / / [id number] Procedures Procedure Name Priority Date/Time Associated Diagnosis Comments COLONOSCOPY REPORT 04/24/2021 12 :19 PM CDT from Last 3 Months or Most Recently Relevant to Health Maintenance Results * COLONOSCOPY REPORT (04/24/2021 12:19 PM CDT) Narrative Procedure Note Edmond Gant MD - 04/24/2021 12:19 PM CDT [facility] Patient Name: Elena Fernández Procedure Date: [...] of Addenda: [address]; [place] [address] Edmond Gant MD GI PROCEDURE ORDERAB LES from Last 3 Months or Most Recently Relevant to Health Maintenance Advance Directives For more information, please contact: [phone] * Full Code (Latest Code Status on [...] 9:16 AM 03/29/2015 11:14 AM Care Teams Engineering Test Specialist Relationship Specialty Start Date End Date Jareth Lopez MD [address] [place] [phone] PCP - General Family Practice 04/11/13
--- OUTSIDE RECORDS SUMMARY | 2024-09-27 23:26 | XMS_ITS | Encounter Summary ---
Author Organization [facility] Address [address] [place] [address] Care Team Providers Care Pot Firer Name Role Phone Jareth Lopez MD Primary Care Provider Reason for Referral * Outpatient Services (Routine) - Closed Specialty Diagnoses / Procedures Referred By Contac t Referred To Contact CT Scan Diagnoses Pancreatic adenocarcinoma Procedures CT ABDOMEN PELVIS W CONTRAST Andi Marley MD [address] [facility] [address] [place] [phone] Referral ID Status Reason Start Date Expiration Date V isits Requested Visits Authorized [id number] Closed STL CTS 12/13/2018 01/11/2019 1 1 * Eval and Treat (Routine) - Closed Specialty Diagnoses / Procedures Referred By Contac t Referred To Contact Gastroenterology Diagnoses Pancreatic adenocarcinoma Epigastric pain Andi Marley MD [address] [facility] [address] [place] [phone] Edmond Gant MD [address] [address] Referral ID Status Reason Start Date Expiration Date V isits Requested Visits Authorized [id number] Closed CRS To Schedule (STL) 12/21/2017 12/22/2018 1 1 Reason for Visit * Reason Comments Follow Up Encounter Details Date Type Department Care Team (Latest Contact Info) Description 12/21/2017 2:00 PM CDT Office Visit [facility] Surgical Spec [place] [address] [place] [address] Andi Marley MD [address] [facility] [address] [place] [address] Pancreatic adenocarcinoma (Primary Dx); Epigastric [...] unspecified MVP ??? 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 [...] REPAIR performed by Andi Marley MD at [facility] OR [facility] ??? HX LUMBAR DISKECTOMY Left 03/29/2015 SPINAL MICRODISCECTOMY MINIMALLY INVASIVE - LEFT L5-S1 M.I. DISCECTOMY performed by Truman Streeter MD at [facility] OR [facility] ??? HX SINUS SURGERY ??? HX TONSILLECTOMY age 6 ??? AK PART REMV PANC,PROX+REMV DUOD 12/04/2013 WHIPPLE performed by Andi Marley MD at [facility] OR [facility] (Not in a hospital admission) Allergies Allergen [...] of a screening colonoscopy Plan: The patient's generator technician in [facility] does not do EGDs and [...] or recurrent disease. DICTATION LOCATION: Location 1 [facility] Narrative 12/16/2018 8:[address] abdomen [...] recurrent disease. DICTATION LOCATION: Location 1 - [facility] Andi Marley MD CT ORDERABLES documented in this encounter Visit Diagnoses Diagnosis Pancreatic adenocarcinoma- Primary Malignant neoplasm of pancreas, part unspecified Epigastric pain Abdominal pain, epigastric Pancreatic adenocarcinoma Malignant neoplasm of pancreas, part unspecified documented in this encounter Care Teams Pot Firer Relationship Specialty Start Date End Date Jareth Lopez MD [address] [place] [address] PCP - General Family Practice 04/11/13 documented as of this encounter
--- OUTSIDE RECORDS SUMMARY | 2024-09-27 23:26 | XMS_ITS | Encounter Summary ---
Author Organization [facility] Address [address] [place] [address] Care Team Providers Care Internal Control Consultant Name Role Phone Jareth Lopez MD Primary Care Provider Reason for Visit * Auth/Cert Specialty Diagnoses / Procedures Referred By Vasquez t Referred To Contact Gastroenterology Procedures COLONOSCOPY ESOPHAGOGASTRODUODENOSCOP Y [facility] Lab [address] [place] [address] Referral ID Status Reason Start Date Expiration Date Visits Re quested Visits Authorized [id number] 1 1 Encounter Details Date Type Department Care Team (Latest Contact Info) Description 04/11/2018 6:26 AM CDT - 04/11/2018 8:43 AM CDT Hospital Encounter [facility] [address] [place] [address] Edmond Gant MD [address] [address] Discharge Disposition: Home or Self [...] Sign Reading Time Taken Comments Blood Pressure 121/68 04/11/2018 8:28 AM CDT Pulse 68 04/11/2018 8:28 AM CDT Temperature 36 ??C (96.8 ??F) 04/11/2018 8:09 AM CDT Respiratory Rate 16 04/11/2018 8:28 AM CDT Oxygen Saturation 100% 04/11/2018 8:28 AM CDT Inhaled Oxygen Concentration - - [...] by mouth daily. L GASSERI/B BIFIDUM/B LONGUM (CORP80 ORAL) Take by mouth. docusate sodium (COLACE) [...] unspecified MVP ??? 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 CHG ANES COLONOSCOPY,DIAGNOSTIC ??? CHG ANESTH,DX ARTHROSCOPIC PROC KNEE JOINT right ??? ENDOSCOPY, GI ??? HX APPENDECTOMY ??? HX SECTION 1972 1977 ??? HX CYST REMOVAL Left index and pointer finger ??? HX EYE SURGERY age 5 cross eyed/glaucoma ??? HX FOOT SURGERY Bilateral four different surgeries ??? HX HERNIA INCISIONAL REPAIR N/A 02/07/2016 HERNIA VENTRAL INCISIONAL REPAIR performed by Andi Marley MD at [facility] ??? HX LUMBAR DISKECTOMY Left 03/29/2015 SPINAL MICRODISCECTOMY MINIMALLY INVASIVE - LEFT L5-S1 M.I. DISCECTOMY performed by Truman Streeter MD at [facility] ??? HX SINUS SURGERY ??? HX TONSILLECTOMY age 6 ??? [place] PART REMV PANC,PROX+REMV DUOD 12/04/2013 WHIPPLE performed by Andi Marley MD at [facility] Prescriptions Prior to Admission Medication Sig Dispense [...] daily. 04/09/2018 ??? L GASSERI/B BIFIDUM/B LONGUM ([facility] ORAL) Take by mouth. 12/15/2016 ??? [...] 04/11/2018 8:19 AM CDTAssociated Order(s): COLONOSCOPY REPORT [facility] Endoscopy Patient Name: Elena Fernández Procedure [...] of Addenda: 0 [address] ; [place] [address] * Edmond Gant MD - 04/11/2018 8:15 AM CDTAssociated Order(s): UPPER ENDOSCOPY REPORT [facility] Endoscopy Patient Name: Elena Fernández Procedure [...] of Addenda: [address]; [place] [address] documented in this encounter OR Notes * Amirah-OP - Fabiola Sapp RN - 04/11/2018 6:38 AM CDT Patient/Family discussion included an explanation that: Standard practice for endoscopists at [facility] includes use of an oral bite block to facilitate upper endoscopy and to prevent you from biting onto the scope or yourself during the procedure.This bite block is placed by a [facility] procedure room nurse/computer repair technician prior to the procedure. Pressure that [...] day or prompt dental evaluation by [facility] Dental Medicine. * Amirah-OP - Fabiola Sapp RN - 04/11/2018 6:38 AM CDT Routine Pre-Anesthesia Protocol for GI Lab Procedures ?? [facility] ? ORDERS ARE ENTERED ???PER PROTOCOL? Enter the protocol in the patient???s electronic health record using Divergencee: .anestprotocolgilab ?? NURSING ORDERS: Monitoring: ?? Obtain [...] appropriate, may confirm POC with: Nursing Only [id number] (this lab can be obtained at no [...] MEDICATION ORDERS - entered by the Pharmacist loft worker head ? Meter Glucose less than 70, patient [...] Gant MD - 04/11/2018 8:19 AM CDT [facility] Endoscopy Patient Name: Elena Fernández Procedure [...] of Addenda: 0 [address] ; [place] [address] Edmond Gant MD GI PROCEDURE ORDERAB LES * UPPER ENDOSCOPY REPORT (04/11/2018 8:16 AM CDT) Narrative Procedure Note Edmond Gant MD - 04/11/2018 8:15 AM CDT [facility] Endoscopy Patient Name: Elena Fernández Procedure [...] of Addenda: [address]; [place] [address] Edmond Gant MD GI PROCEDURE ORDERAB LES * (ABNORMAL) POC GLUCOSE (04/11/2018 8:12 AM CDT) GLUCOSE POC 114(H) 74 - 99 mg/dL 04/11/2018 8:24 AM CDT [facility] LABORATORY SERVICES - [facility] FOOD SAFETY SPECIALIST NAME POC JUAN GILLESPIE 04/11/2018 8:24 AM CDT [facility] LABORATORY SERVICES [facility] Whole blood specimen (specimen) 04/11/2018 8:12 AM CDT 04/11/2018 8:24 AM CDT Edmond Gant MD POINT OF CARE TESTIN G [facility] MOHINI# [id number] [address] [place] [address] * PATHOLOGY (04/11/2018 7:39 AM CDT) CASE REPORT Surgical Pathology Report ? Case: [id number] ? Authorizing Provider: ??Edmond Gant MD ?Collected: ? 04/11/2018 07:39 AM ? Ordering Location: ? [facility] [address] ??Received: ?04/11/2018 08:56 AM ? Pathologist: ? Liborio Wall, DO ? Specimens: ?? A) - Stomach, distal stomach nodule ? B) - Colon, right polyps ? 04/12/2018 6:11 PM CDT [facility] FINAL DIAGNOSIS Stomach, distal nodule, endoscopic biopsy: - Hyperplastic polyp, inflamed. - Adjacent mucosa with reactive (chemical) gastropathy. Large bowel, right colon polyps, endoscopic biopsy: - Tubular adenoma. - Sessile serrated adenoma, several fragments. 04/12/2018 6:11 PM [facility] [employer] [facility] IMEN DESCRIPTION (A) Distal stomach nodule; (B) right colon polyps. 04/12/2018 6:11 PM [facility] OPERATIVE PROCEDURE Colonoscopy and EGD. 04/12/2018 6:11 PM [facility] CLINICAL DIAGNOSIS (A) Rule out dysplasia. (B) Colon polyp(s). Adenomatous vs. hyperplastic vs. other. 04/12/2018 6:11 PM [facility] GROSS DESCRIPTION Received are two containers labeled [...] B4-one piece trisected. ABEL/cassy 04/12/2018 6:11 PM [facility] MICROSCOPIC DESCRIPTION The slides are received labeled [id number] and Elena Fernández. Sections of the distal [...] carcinoma is identified. 04/12/2018 6:11 PM CDT [facility] COMMENT Special stain and/or immunohistochemical results are interpreted with controls that demonstrate appropriate staining reactions. Note on use of immunocytochemistry reagents: This test was developed and its performance characteristic determined by [facility], Department of Laboratory Medicine. It [...] WF, WB and WH are performed by [address], [address]. All other case types are performed by [address], [address]. 04/12/2018 6:11 PM CDT [facility] Tissue ENTIRE STOMACH / Unknown Collection / Unknown 04/11/2018 7:39 AM CDT 04/11/2018 8:56 AM CDT Comment:R/o dysplasia Tissue specimen (specimen) SPECIMEN FROM COLON / Unknown 04/11/2018 7:56 AM CDT 04/11/2018 8:56 AM CDT Comment:Colon Polyp(s). El omatous vs hyperplastic vs other. Edmond Gant MD PATHOLOGY/CYTOLOGY O RDERABLES [facility] CLIA# [id number] [address] [place] [address] [address] [address] * (ABNORMAL) POC GLUCOSE (04/11/2018 6:50 AM CDT) GLUCOSE POC 121(H) 74 - 99 mg/dL 04/11/2018 7:05 AM CDT [facility] COMMENT, GLU POC Notified RN/ 04/11/2018 7:05 AM CDT [facility] FOOD SAFETY SPECIALIST NAME POC FABIOLA SAPP 04/11/2018 7:05 AM CDT [facility] LABORATORY [facility] Whole blood specimen (specimen) 04/11/2018 6:50 AM CDT 04/11/2018 7:05 AM CDT Edmond Gant MD POINT OF CARE TESTIN G [facility] LABORATORY SERVICES [facility] CLIA# [id number] [address] [place] [address] documented in this encounter Visit Diagnoses Not [...] RN) documented in this encounter Care Teams Internal Control Consultant Relationship Specialty Start Date End Date Jareth Lopez MD [address] [place] [address] PCP - General Family Practice 04/11/13 documented as of this encounter
--- OUTSIDE RECORDS SUMMARY | 2024-09-27 23:26 | XMS_ITS | Encounter Summary ---
Author Organization [facility] Address [address] [place] [address] Care Team Providers Care Head Start Teacher Name Role Phone Jareth Lopez MD Primary Care Provider [phone] Reason for Visit * Auth/Cert Specialty Diagnoses / Procedures Referred By Contac t Referred To Contact Gastroenterology Procedures COLONOSCOPY ESOPHAGOGASTRODUODENOSCOP Y [facility] Lab [address] [place] [address] Referral ID Status Reason Start Date Expiration Date Visits Re quested Visits Authorized [id number] 1 1 Encounter Details Date Type Department Care Team (Late st Contact Info) Description 04/11/2018 7:24 AM CDT Anesthesia Event [facility] GI Lab S [facility] [address] [place] [address] Dorian Foster MD [address] [place] [address] Anesthesia Record Procedure Summary Procedure [...] benzocaine (HURRICAINE ONE) 20% PF spray 1 Flovilla lactated Ringers solution 900 mL * Agents [...] 04/11/18723 by Bigg Back 04/11/18819 by Suzan Ortiz RN documented in this encounter Social History [...] % (04/11/2018 8:09 AM) 8:10 AM Bigg Bcak * Anesthesia Preprocedure Evaluation - Dorian Foster [...] Intra-op Given 04/11/2018 7:29 AM CDT 1 Flov[place] lactated Ringers solution IV, at 125 mL/hr, [...] mg documented in this encounter Care Teams Head Start Teacher Relationship Specialty Start Date End Date Jareth Lopez MD [address] [place] [address] PCP - General Family Practice 04/11/13 documented as of this encounter
--- OUTSIDE RECORDS SUMMARY | 2024-09-27 23:26 | XMS_ITS | Encounter Summary ---
Author Organization [facility] Address [address] [place] [address] Care Team Providers Care Driver Guard Name Role Phone Jareth Lopez MD Primary Care Provider [phone] Reason for Referral * Outpatient Services (Routine) - Closed Specialty Diagnoses / Procedures Referred By Contac t Referred To Contact CT Scan Diagnoses Pancreatic adenocarcinoma Procedures CT CHEST ABDOMEN PELVIS W CONT Andi Marley MD [address] [place] [address] Referral ID Status Reason Start Date Expiration Date V isits Requested Visits Authorized [id number] Closed STL CTS 12/01/2016 12/30/2016 1 1 Reason for Visit * Reason Comments Post-op Visit Encounter Details Date Type Department Care Team (Latest Contact Info) Description 03/17/2016 2:15 PM CDT Office Visit [facility] Surgical Spec [place] [address] [place] [address] Andi Marley MD [address] [place] [address] Pancreatic adenocarcinoma (Primary Dx); Incisional [...] metastatic disease. DICTATION LOCATION: Location 1 - [facility] 12/16/2016 2:[address] [...] metastatic disease. DICTATION LOCATION: Location 1 - [facility] Andi Marley MD CT ORDERABLES documented in this encounter Visit Diagnoses Diagnosis Pancreatic adenocarcinoma- Primary Malignant neoplasm of pancreas, part unspecified Incisional hernia, without obstruction or gangrene Incisional hernia without mention of obstruction or gangrene Pancreatic adenocarcinoma Malignant neoplasm of pancreas, part unspecified documented in this encounter Care Teams Driver Guard Relationship Specialty Start Date End Date Jareth Lopez MD [address] [place] [address] PCP - General Family Practice 04/11/13 documented as of this encounter
--- OUTSIDE RECORDS SUMMARY | 2024-09-27 23:26 | XMS_ITS | Encounter Summary ---
Author Organization [facility] Address [address] [place] [address] Care Team Providers Care Button Station Worker Name Role Phone Jareth Lopez MD Primary Care Provider Encounter Details Date Type Department Care Team (Late st Contact Info) Description 12/28/2017 Orders Only [facility] Gastroenterology [place] A [address] [place] [address] Edmond Gant MD [address] [facility] [address] [place] [address] Social History Tobacco Use Types [...] on filedocumented in this encounter Care Teams Button Station Worker Relationship Specialty Start Date End Date Jareth Lopez MD [address] [place] [address] PCP - General Family Practice 04/11/13 documented as of this encounter
--- OUTSIDE RECORDS SUMMARY | 2024-09-27 23:26 | XMS_ITS | Encounter Summary ---
Author Organization [facility] Address [address] [place] [address] Care Team Providers Care Drywall Professional Name Role Phone Jareth Lopez MD Primary Care Provider [phone] Reason for Visit * Reason Onset Date Comments Results 04/28/2018 Encounter Details Date Type Department Care Team (Late st Contact Info) Description 04/28/2018 Telephone [facility] Gastroenterology [place] A [address] [facility] [address] [place] [address] Edmond Gant MD [address] [facility] [address] [place] [address] Results Social History Tobacco Use [...] on filedocumented in this encounter Care Teams Drywall Professional Relationship Specialty Start Date End Date Jareth Lopez MD [address] [place] [address] PCP - General Family Practice 04/11/13 documented as of this encounter
--- OUTSIDE RECORDS SUMMARY | 2024-09-27 23:26 | XMS_ITS ---
Author Organization [facility] Address [address] [place] [address] Phone Care Team Providers Care Assistant Professor Of Criminal Justice Name Role Phone Jareth Lopez MD Primary Care Provider Active Problems Problem Noted Date Diagnosed Date [...] treatments are documented for this patient in [facility]. Treatments may have been administered in [...]
--- OUTSIDE RECORDS SUMMARY | 2024-09-27 23:26 | XMS_ITS | Encounter Summary ---
Author Organization [facility] Address [address] [place] [address] Attn: Epic Prelude [place]T [place] [address] Care Team Providers Care Pump Tester Name Role Phone Jareth Lopez MD Primary Care Provider [phone] Encounter Details Date Type Department Care Team [...] on filedocumented in this encounter Care Teams Pump Tester Relationship Specialty Start Date End Date Jareth Lopez MD [address] [place] [address] PCP - General Family Practice 04/11/13 documented as of this encounter
--- OUTSIDE RECORDS SUMMARY | 2024-09-27 23:26 | XMS_ITS | Encounter Summary ---
Author Organization [facility] Address [address] [place] [address] Care Team Providers Care Plate Hanger Name Role Phone Jareth Lopez MD Primary Care Provider Encounter Details Date Type Department Care Team (Late st Contact Info) Description 05/15/2021 Orders Only [facility] Gastroenterology [place] A [address] [place] [address] Edmond Gant MD [address] [place] [address] Social History Tobacco Use Types [...] Received on 05/14/2021 a incoming referral (outside [facility]) entered referral into chart electronically and scanned referral + outside records into chart under Media tab. documented in this encounter Plan of Treatment Not on file documented as of this encounter Visit Diagnoses Not on filedocumented in this encounter Care Teams Plate Hanger Relationship Specialty Start Date End Date Jareth Lopez MD [address] [place] [address] PCP - General Family Practice 04/11/13 documented as of this encounter
--- OUTSIDE RECORDS SUMMARY | 2024-09-27 23:26 | XMS_ITS | Encounter Summary ---
Author Organization [facility] Address [address] [place] [address] Care Team Providers Care Business Analytics Faculty Member Name Role Phone Jareth Lopez MD Primary Care Provider Reason for Visit * Auth/Cert Specialty Diagnoses / Procedures Referred By Vasquez gibbs Referred To Contact Perioperative Procedures ESOPHAGOGASTRODUODENOSCOPY COLONOSCOPY [facility] [address] [place] [address] Referral ID Status Reason Start Date Expiration Date Visits Re quested Visits Authorized [id number] 1 1 Encounter Details Date Type Department Care Team (Latest Contact Info) Description 04/24/2021 10:00 AM CDT - 04/24/2021 1:14 PM CDT Hospital Encounter [facility] [address] [place] [address] Edmond Gant MD [address] [address] Discharge Disposition: Home or Self [...] by mouth daily. L GASSERI/B BIFIDUM/B LONGUM ([employer] ORAL) Take by mouth. documented as of [...] cause CP/SOB ??? 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 [...] REPAIR performed by Andi Marley MD at [facility] OR [facility] ??? HX LUMBAR DISKECTOMY Left 03/29/2015 SPINAL MICRODISCECTOMY MINIMALLY INVASIVE - LEFT L5-S1 M.I. DISCECTOMY performed by Truman Streeter MD at [facility] OR [facility] ??? HX SINUS SURGERY ??? HX TONSILLECTOMY age 6 ??? FL COLONOSCOPY FLX DX W/COLLJ SPEC WHEN PFRMD N/A 04/11/2018 COLONOSCOPY performed by Edmond Gant MD at [facility] GI LAB ??? FL ESOPHAGOGASTRODUODENOSCOPY TRANSORAL DIAGNOSTIC N/A 04/11/2018 ESOPHAGOGASTRODUODENOSCOPY performed by Edmond Gant MD at [facility] GI LAB ??? FL PART REMV PANC,PROX+REMV DUOD 12/04/2013 WHIPPLE performed by Andi Marley MD at [facility] OR MAIN Medications Prior to Admission [...] Unknown time ??? L GASSERI/B BIFIDUM/B LONGUM ([employer] ORAL) Take by mouth. Allergies Allergen Reactions [...] 04/24/2021 12:19 PM CDTAssociated Order(s): COLONOSCOPY REPORT [facility] Endoscopy Patient Name: Elena Fernández Procedure [...] Number of Addenda: 0 [address] [facility]; [place] [address] * Elena John RN - 04/16/2021 12:02 PM CDT Images from the original note were not included. [facility] GI Nurse Assessment Patient: Elena Fernández : 1950 Endoscopist: Surgeon(s): Edmond aGnt MD Upcoming Procedure: Procedure to be Performed: Procedure(s): ESOPHAGOGASTRODUODENOSCOPY COLONOSCOPY Procedure Date/Time: 04/24/2021 at 1100 Diagnosis/Indication for procedure: Z86.010-hx colonic polyps, K31.7 Gastric polyps Location: [facility] GI LAB Referring Physician: [...] of Addenda: [address]; [place] [address] Last Pathology: Collected: 04/11/2018 ??7:56 AM Received: 04/11/2018 ??8:56 AM Colon Polyp(s). ??Adenomatous vs hyperplastic vs other. PATHOLOGY: [id number] Order: [id number] Collected: 04/11/2018 07:39 Status: Final result ?Visible [...] REPAIR performed by Andi Marley MD at [facility] OR [facility] ??? HX LUMBAR DISKECTOMY Left 03/29/2015 SPINAL MICRODISCECTOMY MINIMALLY INVASIVE - LEFT L5-S1 M.I. DISCECTOMY performed by Truman Streeter MD at [facility] OR [facility] ??? HX SINUS SURGERY ??? HX TONSILLECTOMY age 6 ??? FL COLONOSCOPY FLX DX W/COLLJ SPEC WHEN PFRMD N/A 04/11/2018 COLONOSCOPY performed by Edmond Gant MD at [facility] GI LAB ??? FL ESOPHAGOGASTRODUODENOSCOPY TRANSORAL DIAGNOSTIC N/A 04/11/2018 ESOPHAGOGASTRODUODENOSCOPY performed by Edmond Gant MD at [facility] GI LAB ??? FL PART REMV PANC,PROX+REMV DUOD 12/04/2013 WHIPPLE performed by Andi Marley MD at [facility] OR [facility]IN Past Medical History: Past [...] cause CP/SOB ??? 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 ??? L GASSERI/B BIFIDUM/B LONGUM ([employer] ORAL) Take by mouth. documented in this encounter OR Notes * Amirah-OP - Judy Nye RN - 04/24/2021 10:43 AM CDT Patient/Family discussion included an explanation that: Standard practice for endoscopists at [facility] includes use of an oral bite block to facilitate upper endoscopy and to prevent you from biting onto the scope or yourself during the procedure.This bite block is placed by a [facility] procedure room nurse/survey field technician prior to the procedure. Pressure that [...] same day or prompt dental evaluation by [facility] Dental Medicine. * Amirah-OP - Judy Nye RN - 04/24/2021 10:29 AM CDT Patient/Family discussion included an explanation that: Standard practice for endoscopists at [facility] includes use of an oral bite block to facilitate upper endoscopy and to prevent you from biting onto the scope or yourself during the procedure.This bite block is placed by a [facility] procedure room nurse/survey field technician prior to the procedure. Pressure that [...] same day or prompt dental evaluation by [facility] Dental Medicine. * Amirah-OP - Elena John RN - 04/16/2021 12:02 PM CDT Routine Pre-Anesthesia Protocol for GI Lab Procedures [facility] Approved by: [facility] - Medical Executive Committee Approval Date: 02/20/2021 ORDERS ARE ENTERED ???PER PROTOCOL?? Enter the protocol in the patient???s electronic health record using [employer]: .anestprotocolgilab NURSING ORDERS: Monitoring: o Obtain and [...] appropriate, may confirm POC with: Nursing Only [id number] (this lab can be obtained at no [...] injectable antihyperglycemic agents and glucose is less zych012 mg/dl o NPO patients who have NOT [...] MEDICATION ORDERS - entered by the Pharmacist solar sales assessor RESCUE ORDERS - entered by the Pharmacist or the nutritional health coach Orders Patient has IV access and UNCONCIOUS, [...] Verbalizes understanding. Pt aware of need for guard driver. All of the patients questions answered. Encouraged to call back with any further questions. documented in this encounter Miscellaneous Notes * Query - Edmond Gant MD - 04/24/2021 6:49 AM CDT Please respond within 48 hours. Thank you! 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 No biopsies for diarrhea taken in diagnostic [...] query please contact me Jozef Dudley at [phone] documented in this encounter Plan of Treatment [...] - 99 mg/dL 04/24/2021 12:22 PM CDT [facility] CURBSTONE SETTER NAME POC SHUBHAM CORTES 04/24/2021 12:22 PM CDT [facility] Blood, whole 04/24/2021 12:2 2 PM CDT 04/24/2021 12:31 PM CDT Edmond Gant MD POINT OF CARE TESTIN G Performing Organization Address City/State/[facility] Co de Phone Number [facility]# [id number] [address] [facility] [place] [address] * COLONOSCOPY REPORT (04/24/2021 12:19 PM CDT) Narrative Procedure Note Edmond Gant MD - 04/24/2021 12:19 PM CDT [facility] Endoscopy Patient Name: Elena Fernández Procedure [...] of Addenda: 0 [address] ; [place] [address] Edmond Gant MD GI PROCEDURE ORDERAB LES * PATHOLOGY (04/24/2021 12:05 PM CDT) CASE REPORT Surgical Pathology Report ? Case: [id number] ? Authorizing Provider: ??Edmond Gant MD ?Collected: ? 04/24/2021 12:05 PM ? Ordering Location: ? [facility] GI Lab [address] ??Received: ?04/24/2021 02:00 PM ? Pathologist: ? Jarred Butler MD ? Specimen: ?Colon, polyps ? 04/25/2021 12:35 PM [facility] FINAL DIAGNOSIS A. Colon, polyps, biopsy: - Tubular adenoma, fragments of. - Sessile serrated adenoma, separate fragments of. 04/25/2021 12:35 PM [facility] S DESCRIPTION Received in one container labeled Elena Fernández and colon polyps are multiple (greater than 10) pieces of red-mackay tissue ranging from 0.2 to 1.0 cm in greatest dimension. All are submitted in cassette A1. [facility] 04/25/2021 12:35 PM [facility] MICROSCOPIC DESCRIPTION The slides are labeled [id number] and Elena Fernández. The colon polyps show [...] in shape or contour. 04/25/2021 12:35 PM [facility] OPERATIVE PROCEDURE 1: COLONOSCOPY 04/25/2021 12:35 PM [facility] CLINICAL INFORMATION 04/25/2021 12:35 PM [facility] COMMENT Special stain and/or immunohistochemical results are interpreted with controls that demonstrate appropriate staining reactions. Note on use of immunocytochemistry reagents: This test was developed and its performance characteristics determined by [facility] Department of Laboratory Medicine. It has not [...] part or completely in the following laboratories: [facility], CLIA #[id number] [address] [place] [address] [facility] CLIA #[id number] [address] [place] [address] [facility], CLIA #[id number] [address] [place] [address] 04/25/2021 12:35 PM CDT [facility] Tissue SPECIMEN FROM COLON / Unknown Collection / Unknown 04/24/2021 12:05 PM CDT 04/24/2021 2:00 PM CDT Edmond Gant MD PATHOLOGY/CYTOLOGY O RDERABLES Performing Organization Address [facility]/State/ZIP Co de Phone Number [facility] [id number] [address] [place] [address] * POC GLUCOSE (04/24/2021 10:38 AM CDT) GLUCOSE POC 88 74 - 99 mg/dL 04/24/2021 10:38 AM CDT [facility]ONE SETTER NAME POC PRISCILA ( pn. - GUERRERO )JUDY 04/24/2021 10:38 AM CDT [facility] Blood, whole 04/24/2021 10:3 8 AM CDT 04/24/2021 10:51 AM CDT Edmond Gant MD POINT OF CARE TESTIN G [facility]# [id number] [address] [place] [address] documented in this encounter Visit Diagnoses Not [...] 1042 (New Bag - Prov ider: Judy Ney RN)1138 (Continue from Pre-Op - Provider: Edmond Gant MD)1218 (Fluid Volume - Provider: CASANDRA Iniguez)1223 (Stopped - Provider: Dorothea Romero RN) documented in this encounter Care Teams Business Analytics Faculty Member Relationship Specialty Start Date End Date Jareth Lopez MD [address] [place] [id number] PCP - General Family Practice 04/11/13 documented as of this encounter
--- OUTSIDE RECORDS SUMMARY | 2024-09-27 23:26 | XMS_ITS | Encounter Summary ---
Author Organization [facility] Address [address] [place] [address] Care Team Providers Care Type Caster Name Role Phone Jareth Lopez MD Primary Care Provider [phone] Reason for Referral * Outpatient Services (Routine) - Closed Specialty Diagnoses / Procedures Referred By Contac t Referred To Contact CT Scan Diagnoses History of pancreatic cancer Procedures CT ABDOMEN PELVIS W CONTRAST CT ABDOMEN PELVIS W WO CONTRAST Andi Marley MD [address] [place] [address] Referral ID Status Reason Start Date Expiration Date V isits Requested Visits Authorized [id number] Closed [facility] CTS 11/24/2017 12/23/2017 1 1 Reason for Visit * Outpatient Services (Routine) - Closed Specialty Diagnoses / Procedures Referred By Contac t Referred To Contact CT Scan Diagnoses History of pancreatic cancer Procedures CT ABDOMEN PELVIS W CONTRAST CT ABDOMEN PELVIS W WO CONTRAST Andi Marley MD [address] [place] [phone] Referral ID Status Reason Start Date Expiration Date V isits Requested Visits Authorized [id number] Closed [facility] CTS 11/24/2017 12/23/2017 1 1 Encounter Details Date Type Department Care Team (Latest Contact Info) Description 12/21/2017 8:19 AM CDT - 12/21/2017 11:59 PM CDT Hospital Encounter [facility] [address] [place] [address] [place] [address] Andi Marley MD [address] [facility] [address] [place] [address] Discharge Disposition: Home or Self [...] by mouth daily. L GASSERI/B BIFIDUM/B LONGUM ([employer] [facility] HE[facility] ORAL) Take by mouth. docusate [...] and NUCLEAR MEDICINE MEDICATION and FLUSH PROTOCOL [facility] ORDERS ARE ENTERED ???PER PROTOCOL?? Enter the protocol in the patient???s electronic health record using [employer]: .imagingmedflushprotocol Communication Orders: o For ordered imaging [...] procedure. ??? If at any time the Armored Cable Machine Operator has a question about which option to [...] solution with the pateint???s nurse to [place] Administer 45mL of diluted Iohexol oral solution, [...] evidence of metastatic disease. DICTATION LOCATION: Location [address] [place] [address] 12/21/2017 10:[address] OF THE [...] DICTATION LOCATION: Location 1 - [facility] Andi Marley MD CT ORDERABLES * POC CREATININE (12/21/2017 9:31 AM CDT) CREATININE POC 0.80 0.50 - 1.00 mg/dL 12/21/2017 9:35 AM CDT [facility] GFR >60 >=60 mL/min/1.7 3 sq meter 12/21/2017 9:35 AM CDT [facility] Comment: eGFR has not been validated [...] 3 sq meter 12/21/2017 9:35 AM CDT [facility] Blood, capillary 12/21/2017 9:31 AM CDT 12/21/2017 9:35 AM CDT Andi Marley MD POINT OF CARE TESTFREDI Carrasco [facility] Organization Address City/State/ZIP Co de Phone Number [facility]# [id number] [address] [facility] [place] [address] documented in this encounter Visit Diagnoses Diagnosis [...] mL documented in this encounter Care Teams Type Caster Relationship Specialty Start Date End Date Jareth Lopez MD [address] [place] [address] PCP - General Family Practice 04/11/13 documented as of this encounter
--- OUTSIDE RECORDS SUMMARY | 2024-09-27 23:26 | XMS_ITS | Encounter Summary ---
Author Organization [facility] Address [address] [place] [address] Care Team Providers Care Yard Switcher Name Role Phone Jareth Lopez MD Primary Care Provider [phone] Encounter Details Date Type Department Care Team [...] on filedocumented in this encounter Care Teams Yard Switcher Relationship Specialty Start Date End Date Jareth Lopez MD [address] [place] [address] PCP - General Family Practice 04/11/13 documented as of this encounter
--- OUTSIDE RECORDS SUMMARY | 2024-09-27 23:26 | XMS_ITS | Encounter Summary ---
Author Organization [facility] Address [address] [place] [address] Attn: Epic Prelude ADT [place] [address] Care Team Providers Care Multiple Launch Rocket System Crewmember Name Role Phone Jareth Lopez MD Primary Care Provider [phone] Encounter Details Date Type Department Care Team [...] on filedocumented in this encounter Care Teams Multiple Launch Rocket System Crewmember Relationship Specialty Start Date End Date Jareth Lopez MD [address] [place] [address] PCP - General Family Practice 04/11/13 documented as of this encounter
--- OUTSIDE RECORDS SUMMARY | 2024-09-27 23:26 | XMS_ITS | Encounter Summary ---
Author Organization [facility] Address [address] [place] [address] Care Team Providers Care Property Site Manager Name Role Phone Jareth Lopez MD Primary Care Provider [phone] Reason for Visit * Auth/Cert Specialty Diagnoses / Procedures Referred By Contmaggie t Referred To Contact Perioperative Procedures ESOPHAGOGASTRODUODENOSCOPY COLONOSCOPY [facility] [address] [place] [address] Referral ID Status Reason Start Date Expiration Date Visits Re quested Visits Authorized [id number] 1 1 Encounter Details Date Type Department Care Team (Late st Contact Info) Description 04/24/2021 11:00 AM CDT - 04/24/2021 11:40 AM CDT Surgery [facility] [address] [place] [address] Edmond Gant MD [address] [address] COLONOSCOPY Surgery Details Date/Time Status [...] by mouth daily. L GASSERI/B BIFIDUM/B LONGUM ([employer] ORAL) Take by mouth. documented as of [...] cause CP/SOB ??? Temporomandibular joint disorder wears jail guard Past Surgical History: Procedure Laterality Date [...] REPAIR performed by Andi Marley MD at [facility] ??? HX LUMBAR DISKECTOMY Left 03/29/2015 SPINAL MICRODISCECTOMY MINIMALLY INVASIVE - LEFT L5-S1 M.I. DISCECTOMY performed by Truman Streeter MD at [facility] ??? HX SINUS SURGERY ??? HX TONSILLECTOMY age 6 ??? OK COLONOSCOPY FLX DX W/COLLJ SPEC WHEN PFRMD N/A 04/11/2018 COLONOSCOPY performed by Edmond Gant MD at [facility] GI LAB ??? OK ESOPHAGOGASTRODUODENOSCOPY TRANSORAL DIAGNOSTIC N/A 04/11/2018 ESOPHAGOGASTRODUODENOSCOPY performed by Edmond Gant MD at [facility] GI [facility] ??? OK PART REMV PANC,PROX+REMV DUOD 12/04/2013 WHIPPLE performed by Andi Marley MD at [facility] OR MAIN Medications Prior to [...] Unknown time ??? L GASSERI/B BIFIDUM/B LONGUM ([employer] ORAL) Take by mouth. Allergies Allergen Reactions [...] 04/24/2021 12:19 PM CDTAssociated Order(s): COLONOSCOPY REPORT [facility] Endoscopy Patient Name: Elena Fernández [...] recommend follow-up colonoscopy in 5 years Edmond Gatn MD 04/24/2021 12:19:04 PM This report has been signed electronically. Number of Addenda: 0 [address] [facility]; [place] [address] * Elena John RN - 04/16/2021 12:02 PM CDT Images from the original note were not included. [facility] GI Nurse Assessment Patient: Elena Fernández : 1950 Endoscopist: Surgeon(s): Edmond Gant MD Upcoming Procedure: Procedure to be Performed: Procedure(s): ESOPHAGOGASTRODUODENOSCOPY COLONOSCOPY Procedure Date/Time: 04/24/2021 at 1100 Diagnosis/Indication for procedure: Z86.010-hx colonic polyps, K31.7 Gastric polyps Location: [facility] GI [facility] Referring Physician: Jareth [...] Addenda: [address]; [place] [address] Last Pathology: Collected: 04/11/2018 ??7:56 AM Received: 04/11/2018 ??8:56 AM Colon Polyp(s). ??Adenomatous vs hyperplastic vs other. PATHOLOGY: [id number] Order: [id number] Collected: 04/11/2018 07:39 Status: Final result ?Visible [...] REPAIR performed by Andi Marley MD at [facility] ??? HX LUMBAR DISKECTOMY Left 03/29/2015 SPINAL MICRODISCECTOMY MINIMALLY INVASIVE - LEFT L5-S1 M.I. DISCECTOMY performed by Truman Streeter MD at [facility] ??? HX SINUS SURGERY ??? HX TONSILLECTOMY age 6 ??? OK COLONOSCOPY FLX DX W/COLLJ SPEC WHEN PFRMD N/A 04/11/2018 COLONOSCOPY performed by Edmond Gant MD at [facility] GI LAB ??? OK ESOPHAGOGASTRODUODENOSCOPY TRANSORAL DIAGNOSTIC N/A 04/11/2018 ESOPHAGOGASTRODUODENOSCOPY performed by Edmond Gant MD at [facility] GI LAB ??? OK PART REMV PANC,PROX+REMV DUOD 12/04/2013 WHIPPLE performed by Andi Marley MD at [facility] Past Medical History: Past Medical History: [...] cause CP/SOB ??? Temporomandibular joint disorder wears jail guard No current facility-administered medications on file [...] for Constipation. ??? L GASSERI/B BIFIDUM/B LONGUM ([employer] ORAL) Take by mouth. documented in this encounter OR Notes * Amirah-OP - Judy Nye RN - 04/24/2021 10:43 AM CDT Patient/Family discussion included an explanation that: Standard practice for endoscopists at [facility] includes use of an oral bite block to facilitate upper endoscopy and to prevent you from biting onto the scope or yourself during the procedure.This bite block is placed by a [facility] procedure room nurse/veterinary technician instructor prior to the procedure. Pressure that you [...] same day or prompt dental evaluation by [facility] Dental Medicine. * Amirah-OP Judy Paul RN - 04/24/2021 10:29 AM CDT Patient/Family discussion included an explanation that: Standard practice for endoscopists at [facility] includes use of an oral bite block to facilitate upper endoscopy and to prevent you from biting onto the scope or yourself during the procedure.This bite block is placed by a [facility] procedure room nurse/veterinary technician instructor prior to the procedure. Pressure that you [...] same day or prompt dental evaluation by [facility] Dental Medicine. * Amirah-OP - Elena John RN - 04/16/2021 12:02 PM CDT Routine Pre-Anesthesia Protocol for GI Lab Procedures [facility] Approved by: [facility] - Medical Executive Committee Approval Date: 02/20/2021 ORDERS ARE ENTERED ???PER PROTOCOL?? Enter the protocol in the patient???s electronic health record using [employer]: .anestprotocolgilab NURSING ORDERS: Monitoring: o Obtain and [...] appropriate, may confirm POC with: Nursing Only [id number] (this lab can be obtained at no [...] injectable antihyperglycemic agents and glucose is less [id number] mg/dl o NPO patients who have NOT [...] MEDICATION ORDERS - entered by the Pharmacist ornithology teacher RESCUE ORDERS - entered by the Pharmacist or the supervisor composing room Orders Patient has IV access and UNCONCIOUS, [...] Verbalizes understanding. Pt aware of need for train driver. All of the patients questions answered. Encouraged to call back with any further questions. documented in this encounter Miscellaneous Notes * Query - Edmond Gant MD - 04/24/2021 6:49 AM CDT Please respond within 48 hours. Thank you! 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 No biopsies for diarrhea taken in diagnostic In responding to this query, please exercise your independent professional judgment. Please be advised that coding regulations for inpatient admissions allow the physician to document presumptive/probable diagnoses. The fact that a question is asked does not imply that any particular answer is desired or expected. Thank you, This query was initiated by Linda uDdley. For questions on this coding query please contact me Jozef Dudley at [phone] documented in this encounter Plan of Treatment [...] - 99 mg/dL 04/24/2021 12:22 PM CDT [facility] SYSTEMS TRAINER NAME POC SHUBHAM CORTES 04/24/2021 12:22 PM CDT [facility] Blood, whole 04/24/2021 12:2 2 PM CDT 04/24/2021 12:31 PM CDT Edmond Gant MD POINT OF CARE TESTIN G [facility]# [id number] [address] [place] [address] * COLONOSCOPY REPORT (04/24/2021 12:19 PM CDT) Narrative Procedure Note Edmond Gant MD - 04/24/2021 12:19 PM CDT [facility] Endoscopy Patient Name: Elena Fernández [...] of Addenda: 0 [address] ; [place] [address] Edmond Gant MD GI PROCEDURE ORDERAB LES * PATHOLOGY (04/24/2021 12:05 PM CDT) CASE REPORT Surgical Pathology Report ? Case: [id number] ? Authorizing Provider: ??Edmond Gant MD ?Collected: ? 04/24/2021 12:05 PM ? Ordering Location: ? [facility] [address] ??Received: ?04/24/2021 02:00 PM ? Pathologist: ? Jarred Butler MD ? Specimen: ?Colon, polyps ? 04/25/2021 12:35 PM [facility] [employer] [facility] FINAL DIAGNOSIS A. Colon, polyps, biopsy: - Tubular adenoma, fragments of. - Sessile serrated adenoma, separate fragments of. 04/25/2021 12:35 PM [facility] S DESCRIPTION Received in one container labeled Elena Fernández and colon polyps are multiple (greater than 10) pieces of red-mackay tissue ranging from 0.2 to 1.0 cm in greatest dimension. All are submitted in cassette A1. [facility] 04/25/2021 12:35 PM [facility] [employer] [facility] MICROSCOPIC DESCRIPTION The slides are labeled [id number] and Elena Fernández. The colon polyps show [...] shape or contour. 04/25/2021 12:35 PM CDT [facility] OPERATIVE PROCEDURE 1: COLONOSCOPY 04/25/2021 12:35 PM CDT [facility] CLINICAL INFORMATION 04/25/2021 12:35 PM CDT [facility] COMMENT Special stain and/or immunohistochemical results are interpreted with controls that demonstrate appropriate staining reactions. Note on use of immunocytochemistry reagents: This test was developed and its performance characteristics determined by [facility], Department of Laboratory Medicine. It [...] part or completely in the following laboratories: [facility], CLIA #[id number] [address] [place] [address] [facility][id number] [address] [place] [address] [facility][id number] [address] [place] [address] 04/25/2021 12:35 PM CDT [facility] Tissue SPECIMEN FROM COLON / Unknown Collection / Unknown 04/24/2021 12:05 PM CDT 04/24/2021 2:00 PM CDT Edmond Gant MD PATHOLOGY/CYTOLOGY O RDERABLES [facility] CLIA# [id number] [address] [place] [address] * POC GLUCOSE (04/24/2021 10:38 AM CDT) GLUCOSE POC 88 74 - 99 mg/dL 04/24/2021 10:38 AM CDT [facility] SYSTEMS TRAINER NAME POC PRISCILA ( pn. - JUDY SINGLETARY 04/24/2021 10:38 AM CDT [facility] Blood, whole 04/24/2021 10:3 8 AM CDT 04/24/2021 10:51 AM CDT Edmond Gant MD POINT OF CARE TESTIN G [facility] CLIA# [id number] [address] [place] [address] documented in this encounter Visit Diagnoses Not [...] RN) documented in this encounter Care Teams Property Site Manager Relationship Specialty Start Date End Date Jareth Lopez MD [address] [place] [address] PCP - General Family Practice 04/11/13 documented as of this encounter
--- OUTSIDE RECORDS SUMMARY | 2024-09-27 23:26 | XMS_ITS | Encounter Summary ---
Author Organization [facility] Address [address] [place] [address] Care Team Providers Care Tip Stitcher Name Role Phone Jareth Lopez MD Primary Care Provider Encounter Details Date Type Department Care Team (Late st Contact Info) Description 12/22/2017 Chart Note [facility] [place] [address] [place] [address] Edmond Gant MD [address] [place] [address] Social History Tobacco Use Types [...] on filedocumented in this encounter Care Teams Tip Stitcher Relationship Specialty Start Date End Date Jareth Lopez MD [address] [place] [address] PCP - General Family Practice 04/11/13 documented as of this encounter
--- OUTSIDE RECORDS SUMMARY | 2024-09-27 23:26 | XMS_ITS | Encounter Summary ---
Author Organization [facility] Address [address] [place] [address] Care Team Providers Care System Administration Manager Name Role Phone Jareth Lopez MD Primary Care Provider [phone] Reason for Visit * Reason Comments Post-op Visit Encounter Details Date Type Department Care Team (Late st Contact Info) Description 02/25/2016 4:15 PM CDT Office Visit [facility] Surgical Spec [place] [address] [place] [address] Andi Marley MD [address] [place] [address] Incisional hernia, without obstruction or [...] gangrene documented in this encounter Care Teams System Administration Manager Relationship Specialty Start Date End Date Jareth Lopez MD [address] [place] [address] PCP - General Family Practice 04/11/13 documented as of this encounter
--- OUTSIDE RECORDS SUMMARY | 2024-09-27 23:26 | XMS_ITS | Encounter Summary ---
Author Organization [facility] Address [address] [place] [address] Care Team Providers Care Agricultural Engineering Technologist Name Role Phone Jareth Lopez MD Primary Care Provider Reason for Referral * Outpatient Services (Routine) - Closed Specialty Diagnoses / Procedures Referred By Contac t Referred To Contact CT Scan Diagnoses History of pancreatic cancer Procedures CT ABDOMEN PELVIS W CONTRAST CT ABDOMEN PELVIS W WO CONTRAST Andi Marley MD [address] [place] [address] Referral ID Status Reason Start Date Expiration Date V isits Requested Visits Authorized [id number] Closed [facility] CTS 11/24/2017 12/23/2017 1 1 [place] MEDIA SENIOR ASSOCIATE Encounter Details Date Type Department Care Team (Late st Contact Info) Description 11/10/2017 Orders Only [facility] Surgical Spec [place] [address] [place] [address] Judy Suh RN History of [...] metastatic disease. DICTATION LOCATION: Location 1 - [facility] 12/21/2017 10:[address] OF THE [...] metastatic disease. DICTATION LOCATION: Location 1 - [facility] Andi Marley MD CT ORDERABLES documented in this encounter Visit Diagnoses Diagnosis History of pancreatic cancer- Primary Personal history of malignant neoplasm of other site in gastrointestinal tract History of pancreatic cancer Personal history of malignant neoplasm of other site in gastrointestinal tract documented in this encounter Care Teams Agricultural Engineering Technologist Relationship Specialty Start Date End Date Jareth Lopez MD [address] [place] [address] PCP - General Family Practice 04/11/13 documented as of this encounter
--- OUTSIDE RECORDS SUMMARY | 2024-09-27 23:26 | XMS_ITS | Encounter Summary ---
Author Organization [facility] Address [address] [place] [address] Care Team Providers Care Bill Recapitulation Clerk Name Role Phone Jareth Lopez MD Primary Care Provider Reason for Visit * Auth/Cert Specialty Diagnoses / Procedures Referred By Contac t Referred To Contact Perioperative Diagnoses Cyclical vomiting syndrome unrelated to migraine Personal history of malignant neoplasm of pancreas Procedures ESOPHAGOGASTRODUODENOSCOPY [facility] [address] [place] [address] Referral ID Status Reason Start Date Expiration Date Visits Re quested Visits Authorized [id number] 1 1 Encounter Details Date Type Department Care Team (Latest Contact Info) Description 07/24/2021 7:00 AM CDT - 07/24/2021 7:40 AM CDT Surgery [facility] S Formerly [facility], [facility] [address] [place] [address] Edmond Gant MD [address] [address] ESOPHAGOGASTRODUODENOSCOPY Surgery Details Date/Time Status Location OR Service Patient Class Case Class Case Type Trauma Case? 07/24/2021 7:00 AM Posted [facility] GI 05 Gastroenterology Outpatient Elective No Panel 1 Procedure LRB Anes Op Region Wound Class Comments ESOPHAGOGASTRODUODENOSCOPY N/A General Mouth Surgeon Surgeon Role Service Panel Edmond Gant MD Primary Gastroenterology 1 Case Notes 07/17 no mm or email documented in this encounter Social History Tobacco [...] Sign Reading Time Taken Comments Blood Pressure 140/73 07/24/2021 6:51 AM CDT Pulse 78 07/24/2021 6:51 AM CDT Temperature 36.7 ??C (98 ??F) 07/24/2021 6:41 AM CDT Respiratory Rate 18 07/24/2021 6:51 AM CDT Oxygen Saturation 100% 07/24/2021 6:51 AM CDT Inhaled Oxygen Concentration - - Weight 65.6 kg (144 lb 9.6 oz) 07/24/2021 6:41 A M CDT Height 160 cm (5' 3 ) 07/24/2021 6:41 AM CDT Body Mass Index 25.61 07/24/2021 6:41 AM CDT documented in this encounter Discharge Instructions * Discharge Instructions* Paul Cuelol, [place] - 07/24/2021 7:57 AM CDT If you [...] by mouth daily. L GASSERI/B BIFIDUM/B LONGUM ([employer] ORAL) Take by mouth. documented as of [...] cause CP/SOB ??? 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 [...] REPAIR performed by Andi Marley MD at [facility] OR [facility] ??? HX LUMBAR DISKECTOMY Left 03/29/2015 SPINAL MICRODISCECTOMY MINIMALLY INVASIVE - LEFT L5-S1 M.I. DISCECTOMY performed by Truman Streeter MD at [facility] OR [facility] ??? HX SINUS SURGERY ??? HX TONSILLECTOMY age 6 ??? [place] COLONOSCOPY FLX DX W/COLLJ SPEC WHEN PFRMD N/A 04/11/2018 COLONOSCOPY performed by Edmond Gant MD at [facility] GI LAB ??? [place] COLONOSCOPY FLX DX W/COLLJ SPEC WHEN PFRMD N/A 04/24/2021 COLONOSCOPY performed by Edmond Gant MD at [facility] GI LAB ??? [place] ESOPHAGOGASTRODUODENOSCOPY TRANSORAL DIAGNOSTIC N/A 04/11/2018 ESOPHAGOGASTRODUODENOSCOPY performed by Edmond Gant MD at [facility] GI LAB ??? [place] PART REMV PANC,PROX+REMV DUOD 12/04/2013 WHIPPLE performed by Andi Marley MD at [facility] OR MAIN Medications Prior to Admission Medication [...] Unknown time ??? L GASSERI/B BIFIDUM/B LONGUM ([employer] ORAL) Take by mouth. Past Week at [...] 8:00 AM CDTAssociated Order(s): UPPER ENDOSCOPY REPORT [facility] Endoscopy Patient Name: Elena Fernández Procedure Date: [...] electronically. Number of Addenda: 0 [phone] [facility]; [place] [address] * Elena John RN - 07/17/2021 12:35 PM CDT Images from the original note were not included. [facility] GI Nurse Assessment Patient: Elena Fernández : 1950 Endoscopist: Surgeon(s): Edmond Gant MD Upcoming Procedure: Procedure to be Performed: Procedure(s): ESOPHAGOGASTRODUODENOSCOPY Procedure Date/Time: 07/24/2021 at 0700 Diagnosis/Indication for procedure: Pre-Op Diagnosis Codes: * Cyclical vomiting syndrome unrelated to migraine [R11.15] * Personal history of malignant neoplasm of pancreas [Z85.07] Location: [facility] GI LAB Referring Physician: Jareth Lopez Patient's [...] REPAIR performed by Andi Marley MD at [facility] OR [facility] ??? HX LUMBAR DISKECTOMY Left 03/29/2015 SPINAL MICRODISCECTOMY MINIMALLY INVASIVE - LEFT L5-S1 M.I. DISCECTOMY performed by Truman Streeter MD at [facility] OR [facility] ??? HX SINUS SURGERY ??? HX TONSILLECTOMY age 6 ??? [place] COLONOSCOPY FLX DX W/COLLJ SPEC WHEN PFRMD N/A 04/11/2018 COLONOSCOPY performed by Edmond Gant MD at [facility] GI LAB ??? [place] COLONOSCOPY FLX DX W/COLLJ SPEC WHEN PFRMD N/A 04/24/2021 COLONOSCOPY performed by Edmond Gant MD at [facility] GI LAB ??? [place] ESOPHAGOGASTRODUODENOSCOPY TRANSORAL DIAGNOSTIC N/A 04/11/2018 ESOPHAGOGASTRODUODENOSCOPY performed by Edmond Gant MD at [facility] GI LAB ??? [place] PART REMV PANC,PROX+REMV DUOD 12/04/2013 WHIPPLE performed by Andi Marley MD at [facility] OR [facility] Past Medical History: Past Medical [...] cause CP/SOB ??? 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 ??? L GASSERI/B BIFIDUM/B LONGUM ([employer] ORAL) Take by mouth. documented in this encounter OR Notes * Amirah-OP - Candice Aguirre RN - 07/24/2021 6:43 AM CDT Patient/Family discussion included an explanation that: Standard practice for endoscopists at [facility] includes use of an oral bite block to facilitate upper endoscopy and to prevent you from biting onto the scope or yourself during the procedure.This bite block is placed by a [facility] procedure room nurse/networking technician prior to the procedure. Pressure that [...] same day or prompt dental evaluation by [facility] Dental Medicine. * Amirah-OP - Elena John RN - 07/17/2021 12:35 PM CDT Routine Pre-Anesthesia Protocol for GI Lab Procedures [facility] Approved by: [facility] - Medical Executive Committee Approval Date: 02/20/2021 ORDERS ARE ENTERED ???PER PROTOCOL?? Enter the protocol in the patient???s electronic health record using [employer]: .anestprotocolgilab NURSING ORDERS: Monitoring: o Obtain and [...] appropriate, may confirm POC with: Nursing Only [id number] (this lab can be obtained at no [...] injectable antihyperglycemic agents and glucose is less [id number] mg/dl o NPO patients who have NOT [...] MEDICATION ORDERS - entered by the Pharmacist molded parts inspector RESCUE ORDERS - entered by the Pharmacist or the steel die engraver Orders Patient has IV access and [...] Verbalizes understanding. 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 All of the patients questions [...] Gant MD - 07/24/2021 8:00 AM CDT [facility] Endoscopy Patient Name: Elena Fernández Procedure Date: [...] electronically. Number of Addenda: 0 [phone]; [place] [address] Edmond Gant MD GI PROCEDURE ORDERAB LES * POC GLUCOSE (07/24/2021 7:53 AM CDT) GLUCOSE POC 84 74 - 99 mg/dL 07/24/2021 7:53 AM CDT [facility] BAKER PASTRY NAME POC MINA (SCHOELCH)LÓPEZ 07/24/2021 7:53 AM CDT [facility] Blood, whole 07/24/2021 7:53 AM CDT 07/24/2021 8:03 AM CDT Edmond Gant MD POINT OF CARE TESTIN G Performing Organization Address City/State/[facility] Co de Phone Number [facility] CLIA# [id number] [address] [address] * PATHOLOGY (07/24/2021 7:45 AM CDT) CASE REPORT Surgical Pathology R eport ? Case: [id number] ? Authorizing Provider: ??Edmond Gant MD ?Collected: ? 07/24/2021 07:45 AM ? Ordering Location: ? [facility] S Isaías Ivis ??Received: ?07/24/2021 09:26 AM ? Pathologist: ? Staci Lu MD ? Specimen: ?Small Intestine, bx ? 9:37 AM [facility] FINAL DIAGNOSIS Small intestine, biopsy: - Oxyntic mucosa with proton pump inhibitor effect (see microscopic). - No Helicobacter-type organisms identified on routine sections. 9:37 AM [facility] S DESCRIPTION Received in one container labeled Elena Fernández and small intestine biopsy are 4 pieces of pink-mackay tissue ranging from 0.1 to 0.2 cm in greatest dimension. All are submitted in cassette A1. [facility] 9:37 AM [facility] MICROSCOPIC DESCRIPTION The slides are labeled [id number] and Elena Fernández. Although the specimen is labeled small intestine biopsy, the endoscopic report states that biopsies of the gastric body were performed. Histologic sections show oxyntic mucosa with proton pump inhibitor effect with no significant inflammation. No Helicobacter-type organisms are identified on routine sections. 9:37 AM [facility] OPERATIVE PROCEDURE 1: ESOPHAGOGASTRODUODENOSCOP Y 9:37 AM [facility] CLINICAL INFORMATION Small bowel Bx's. Rule out sprue (chronic diarrhea and/or Iron deficiency anemia). Cyclical vomiting syndrome unrelated to migraine [R11.15] Personal history of malignant neoplasm of pancreas [Z85.07] 9:37 AM [facility] COMMENT Special stain and/or immunohistochemical results are interpreted with controls that demonstrate appropriate staining reactions. Note on use of immunocytochemistry reagents: This test was developed and its performance characteristics determined by [facility], Department of Laboratory Medicine. It has not [...] part or completely in the following laboratories: [facility], CLIA #[id number] [address] [place] [address] [facility], CLIA #[id number] [address] [place] [address] [facility], CLIA #[id number] [address] [place] [address] This report was created with the [employer] voice-activated dictation system. Inherent to this system is the possibility of syntax, grammar, punctuation and other errors that could impact the interpretation of the report. If there are interpretative questions about aspects of this report, please contact the performing pathologist. 9:37 AM CDT [facility] Tissue (Small Intestine) Collection / Unknown 07/24/2021 7:45 AM CDT 07/24/2021 9:26 AM CDT Comment:Small bowel Bx's. Ru le out sprue (chronic diarrhea and/or Iron deficiency anemia. Edmond Gant MD PATHOLOGY/CYTOLOGY O RDERABLES [facility]# [id number] [address] [place] [address] * POC GLUCOSE (07/24/2021 6:52 AM CDT) GLUCOSE POC 98 74 - 99 mg/dL 07/24/2021 6:52 AM CDT [facility] BAKER PASTRY NAME POC OCTAVIO ADAMES 07/24/2021 6:52 AM CDT [facility] Blood, whole 07/24/2021 6:52 AM CDT 07/24/2021 6:59 AM CDT Edmond Gant MD POINT OF CARE TESTIN G [facility] CLIA# [id number] [address] [place] [address] documented in this encounter Visit Diagnoses Diagnosis Cyclical vomiting syndrome unrelated to migraine Personal history of malignant neoplasm of pancreas Personal history of malignant neoplasm of other site in gastrointestinal tract Cyclical vomiting syndrome unrelated to migraine Personal [...] [place]) documented in this encounter Care Teams Bill Recapitulation Clerk Relationship Specialty Start Date End Date Jareth Lopez MD [address] [place] [address] PCP - General Family Practice 04/11/13 documented as of this encounter
--- OUTSIDE RECORDS SUMMARY | 2024-09-27 23:26 | XMS_ITS | Encounter Summary ---
Author Organization [facility] Address [address] [place] [address] Dr. Downingn: Epic Prelude ADT [place] [address] Care Team Providers Care Chemistry Technologist Name Role Phone Jareth Lopez MD [...] on filedocumented in this encounter Care Teams Chemistry Technologist Relationship Specialty Start Date End Date Jareth Lopez MD [address] [place] [address] PCP - General Family Practice 04/11/13 documented as of this encounter
--- OUTSIDE RECORDS SUMMARY | 2024-09-27 23:26 | XMS_ITS | Encounter Summary ---
Author Organization [facility] Address [address] [place] [address] Attn: Epic Prelude ADT [place] [address] Care Team Providers Care Ice Guard Skating Rink Name Role Phone Jareth Lopez MD Primary Care Provider [phone] Encounter Details Date Type Department Care Team [...] on filedocumented in this encounter Care Teams Ice Guard Skating Rink Relationship Specialty Start Date End Date Jareth Lopez MD [address] [place] [address] PCP - General Family Practice 04/11/13 documented as of this encounter
--- OUTSIDE RECORDS SUMMARY | 2024-09-27 23:26 | XMS_ITS | Encounter Summary ---
Author Organization [facility] Address [address] [place] [address] Care Team Providers Care Kitchen Lead Name Role Phone Jareth Lopez MD Primary [...] on filedocumented in this encounter Care Teams Kitchen Lead Relationship Specialty Start Date End Date Jareth Lopez MD [address] [place] [address] PCP - General Family Practice 04/11/13 documented as of this encounter
--- OUTSIDE RECORDS SUMMARY | 2024-09-27 23:26 | XMS_ITS | Encounter Summary ---
Author Organization [facility] Address [address] [place] [address] Care Team Providers Care Lines Tender Name Role Phone Jareth Lopez MD Primary [...] on filedocumented in this encounter Care Teams Lines Tender Relationship Specialty Start Date End Date Jareth Lopez MD [address] [place] [address] PCP - General Family Practice 04/11/13 documented as of this encounter
--- OUTSIDE RECORDS SUMMARY | 2024-09-27 23:26 | XMS_ITS | Encounter Summary ---
Author Organization [facility] Address [address] [place] [address] Care Team Providers Care Production Support Consultant Name Role Phone Jareth Lopez MD Primary Care Provider Encounter Details Date Type Department Care Team (Late st Contact Info) Description 04/03/2021 Abstract [facility] Gastroenterology [place] [address] [place] [address] [place] [address] Edmond Gant MD [address] [facility] [address] [place] [address] Social History Tobacco Use Types [...] on filedocumented in this encounter Care Teams Production Support Consultant Relationship Specialty Start Date End Date Jareth Lopez MD [address] [place] [address] PCP - General Family Practice 04/11/13 documented as of this encounter
--- OUTSIDE RECORDS SUMMARY | 2024-09-27 23:26 | XMS_ITS | Encounter Summary ---
Author Organization [facility] Address [address] [place] [address] Care Team Providers Care Ceo And President Name Role Phone Jareth Lopez MD Primary Care Provider [phone] Reason for Referral * Outpatient Services (Routine) - Closed Specialty Diagnoses / Procedures Referred By Vasquez gibbs Referred To Contact CT Scan Diagnoses Pancreatic adenocarcinoma Procedures CT CHEST ABDOMEN PELVIS W Andi Mas MD [address] [place] [address] Referral ID Status Reason Start Date Expiration Date V isits Requested Visits Authorized [id number] Closed [facility] 12/01/2016 12/30/2016 1 1 Reason for Visit * Outpatient Services (Routine) - Closed Specialty Diagnoses / Procedures Referred By Contmaggie gibbs Referred To Contact CT Scan Diagnoses Pancreatic adenocarcinoma Procedures CT CHEST ABDOMEN PELVIS W Andi Mas MD [address] [place] [address] Referral ID Status Reason Start Date Expiration Date V isits Requested Visits Authorized [id number] Closed [facility] 12/01/2016 12/30/2016 1 1 Encounter Details Date Type Department Care Team (Latest Contact Info) Description 12/15/2016 9:45 AM CDT - 12/15/2016 11:59 PM CDT Hospital Encounter [facility] CT Scan [address] [place] [address] Andi Marley MD [address] [facility] [address] [address] [place] [address] Discharge Disposition: Home or Self [...] by mouth daily. L GASSERI/B BIFIDUM/B LONGUM ([employer] HEALTH ORAL) Take by mouth. docusate sodium [...] metastatic disease. DICTATION LOCATION: Location 1 - [facility] 12/16/2016 2:[address] CHEST, [...] of metastatic disease. DICTATION LOCATION: Location 1 [facility] Andi Marley MD CT ORDERABLES * POC CREATININE (12/15/2016 10:48 AM CDT) CREATININE POC 0.70 0.50 - 1.00 mg/dL 12/15/2016 10:55 AM T [facility] Siri [facility] GFR >60 >=60 mL/min/1.7 3 sq meter 12/15/2016 10:55 AM [facility] Siri [facility] Comment: eGFR has not been validated [...] mL/min/1.7 3 sq meter 12/15/2016 10:55 AM [facility] Siri [facility] Blood, capillary 12/15/2016 10:48 AM CDT 12/15/2016 10:55 AM CDT Andi Marley MD POINT OF CARE GREER [facility]# [id number] [address] [place] [address] documented in this encounter Visit Diagnoses Diagnosis [...] mL documented in this encounter Care Teams Ceo And President Relationship Specialty Start Date End Date Jareth Lopez MD [address] [place] [address] PCP - General Family Practice 04/11/13 documented as of this encounter
--- OUTSIDE RECORDS SUMMARY | 2024-09-27 23:26 | XMS_ITS | Encounter Summary ---
Author Organization [facility] Address [address] [place] [address] Care Team Providers Care Coal Sample Tester Name Role Phone Jareth Lopez MD [...] on filedocumented in this encounter Care Teams Coal Sample Tester Relationship Specialty Start Date End Date Jareth Lopez MD [address] [place] [address] PCP - General Family Practice 04/11/13 documented as of this encounter
--- OUTSIDE RECORDS SUMMARY | 2024-09-27 23:26 | XMS_ITS | Encounter Summary ---
Author Organization [facility] Address [address] [place] [address] Care Team Providers Care Nursing Clerk Name Role Phone Jareth Lopez MD Primary Care Provider Reason for Visit * Reason Onset Date Comments Insurance Issues 04/17/2021 Peer to Peer Encounter Details Date Type Department Care Team (Late st Contact Info) Description 04/17/2021 Telephone [facility] JP BRIAN [address] [facility] [address] [place] [address] Edmond Gant MD [address] [address] Insurance Issues (Peer to Peer) [...] a peer to peer their number is [phone] and the Order ID is [id number]. Please advise how to proceed. Thank you so much! Dorcas Greene Auth/Cert Team GI documented in this encounter Plan of Treatment Not on file documented as of this encounter Visit Diagnoses Not on filedocumented in this encounter Care Teams Nursing Clerk Relationship Specialty Start Date End Date Jareth Lopez MD [address] [place] [address] PCP - General Family Practice 04/11/13 documented as of this encounter
--- OUTSIDE RECORDS SUMMARY | 2024-09-27 23:26 | XMS_ITS | Encounter Summary ---
Author Organization [facility] Address [address] [place] [address] Care Team Providers Care Supervisor [employer] Name Role Phone Jareth Lopez MD Primary [...] filedocumented in this encounter Care Teams Supervisor [employer] Relationship Specialty Start Date End Date Jareth Lopez MD [address] [place] [address] PCP - General Family Practice 04/11/13 documented as of this encounter
--- OUTSIDE RECORDS SUMMARY | 2024-09-27 23:26 | XMS_ITS | Encounter Summary ---
Author Organization [facility] Address [address] [place] [address] Care Team Providers Care Tutor Name Role Phone Jareth Lopez MD Primary Care Provider [phone] Reason for Visit * Reason Comments Follow Up Encounter Details Date Type Department Care Team (Latest Contact Info) Description 01/22/2023 9:00 AM CDT Office Visit [facility] Gastroenterology [address] [address] Edmond Gant MD [address] [place] [address] Acute blood loss anemia (Primary Dx) [...] Gant MD - 01/22/2023 9:57 AM CDT [facility] Gastroenterology - Advanced Endoscopy Office Note- Edmond Gant M.D. Patient: Elena Fernández / 72 y.o. / female : 1950 Date: 01/22/2023 CSN: [id number] PCP: Jareth Lopez MD Impression/Plan: Anemia. 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 DISCECTOMY performed by Truman Streeter MD at [facility] OR [facility] HX SINUS SURGERY HX TONSILLECTOMY age 6 [place] COLONOSCOPY FLX DX W/COLLJ SPEC WHEN PFRMD N/A 04/11/2018 COLONOSCOPY performed by Edmond Gant MD at [facility] GI LAB [place] COLONOSCOPY FLX DX W/COLLJ SPEC WHEN PFRMD N/A 04/24/2021 COLONOSCOPY performed by Edmond Gant MD at [facility] GI LAB [place] ESOPHAGOGASTRODUODENOSCOPY TRANSORAL DIAGNOSTIC N/A 04/11/2018 ESOPHAGOGASTRODUODENOSCOPY performed by Edmond Gant MD at [facility] GI LAB [place] ESOPHAGOGASTRODUODENOSCOPY TRANSORAL DIAGNOSTIC N/A 07/24/2021 ESOPHAGOGASTRODUODENOSCOPY performed by Edmond Gant MD at [facility] GI LAB [place] PNCRTECT WHIPPLE W/O PANCREATOJEJUNOSTOMY 12/04/2013 WHIPPLE performed by Andi Marley MD at [facility] OR [facility] Family History Problem Relation Name Age of [...] Hives Codeine Other (See Comments) Respiratory arrest Ppaow-6-Qyg-Fish Oil Unknown Oxycodone Other (See Comments) Can [...] to call. This note was transcribed using [employer] speaking computerized voice recognition without a human drum puller. This report may or may not have been adjusted for typographical, grammaticaland syntax errors. Edmond Gant MD Advanced Endoscopy, EUS/ERCP Office: documented in this encounter Plan of Treatment Not on file documented as of this encounter Visit Diagnoses Diagnosis Acute blood loss anemia- Primary Acute posthemorrhagic anemia documented in this encounter Care Teams Tutor Relationship Specialty Start Date End Date Jareth Lopez MD [address] [place] [address] PCP - General Family Practice 04/11/13 documented as of this encounter
--- OUTSIDE RECORDS SUMMARY | 2024-09-27 23:26 | XMS_ITS | Encounter Summary ---
Author Organization [facility] Address [address] [place] [address] Care Team Providers Care Extractor Plant Operator Name Role Phone Jareth Lopez MD Primary Care Provider [phone] Encounter Details Date Type Department Care Team (Late st Contact Info) Description 12/04/2022 Abstract [facility] Gastroenterology [facility] [address] [facility] [address] [place] [address] Edmond Gant MD [address] [facility] [address] [place] [address] Social History Tobacco Use Types [...] on filedocumented in this encounter Care Teams Extractor Plant Operator Relationship Specialty Start Date End Date Jareth Lopez MD [address] [place] [address] PCP - General Family Practice 04/11/13 documented as of this encounter
--- OUTSIDE RECORDS SUMMARY | 2024-09-27 23:26 | XMS_ITS | Encounter Summary ---
Author Organization [facility] Address [address] [place] [address] Care Team Providers Care Pickle Sorter Name Role Phone Jareth Lopez MD Primary Care Provider Encounter Details Date Type Department Care Team (Late st Contact Info) Description 04/03/2021 Abstract [facility] Gastroenterology [place] [address] [place] [address] Edmond Gant MD [address] [facility] [place] 1200 [place] [address] Social History Tobacco Use Types [...] on filedocumented in this encounter Care Teams Pickle Sorter Relationship Specialty Start Date End Date Jareth Lopez MD [address] [place] [address] PCP - General Family Practice 04/11/13 documented as of this encounter
--- OUTSIDE RECORDS SUMMARY | 2024-09-27 23:26 | XMS_ITS | Encounter Summary ---
Author Organization [facility] Address [address] [place] [address] Care Team Providers Care Deep Submergence Vehicle Crewmember Name Role Phone Jareth Lopez MD Primary Care Provider Reason for Visit * Reason Comments Follow Up Encounter Details Date Type Department Care Team (Latest Contact Info) Description 12/15/2016 1:00 PM CDT Office Visit [facility] Surgical Spec [place] [address] [place] [address] Andi Marley MD [address] [place] [address] Pancreatic adenocarcinoma (Primary Dx) Social [...] unspecified MVP ??? 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 [...] WHIPPLE performed by Andi Marley MD at [facility] OR [facility] ??? Hx lumbar diskectomy Left 03/29/2015 SPINAL MICRODISCECTOMY MINIMALLY INVASIVE - LEFT L5-S1 M.I. DISCECTOMY performed by Truman Streeter MD at [facility] OR [facility] ??? Hx hernia incisional repair N/A 02/07/2016 HERNIA VENTRAL INCISIONAL REPAIR performed by Andi Marley MD at [facility] OR [facility] (Not in a hospital admission) Allergies Allergen [...] unspecified documented in this encounter Care Teams Deep Submergence Vehicle Crewmember Relationship Specialty Start Date End Date Jareth Lopez MD [address] [place] [address] PCP - General Family Practice 04/11/13 documented as of this encounter
--- OUTSIDE RECORDS SUMMARY | 2024-09-27 23:27 | XMS_ITS | Encounter Summary ---
Author Organization [facility] Address [address] [place] [address] Care Team Providers Care Store Stock Associate Name Role Phone Jareth Lopez MD Primary Care Provider [phone] Reason for Referral * Outpatient Services (Routine) - Closed Specialty Diagnoses / Procedures Referred By Contac t Referred To Contact CT Scan Diagnoses Pancreatic adenocarcinoma Procedures CT ABDOMEN PELVIS W CONTRAST Andi Marley MD [address] [place] [address] Referral ID Status Reason Start Date Expiration Date V isits Requested Visits Authorized [id number] Closed [facility] CTS 06/04/2015 07/03/2015 1 1 Reason for Visit * Reason Comments Follow Up 6 months Encounter Details Date Type Department Care Team (Latest Contact Info) Description 12/25/2014 1:00 PM CDT Office Visit [facility] Surgical Spec [place] [address] [place] [address] Andi Marley MD [address] [place] [address] Pancreatic adenocarcinoma (Primary Dx) Social [...] WHIPPLE performed by Andi Marley MD at [facility] OR [facility] (Not in a hospital admission) Allergies Allergen [...] DLP: 312.29 mGy-cm Dictated from Location 1: [facility] Narrative 06/26/2015 10:[address] ABDOMEN [...] unspecified documented in this encounter Care Teams Store Stock Associate Relationship Specialty Start Date End Date Jareth Lopez MD [address] [place] [address] PCP - General Family Practice 04/11/13 documented as of this encounter
--- OUTSIDE RECORDS SUMMARY | 2024-09-27 23:27 | XMS_ITS | Encounter Summary ---
Author Organization [facility] Address [address] [place] [address] Care Team Providers Care Patient Relations Manager Name Role Phone Jareth Lopez MD Primary Care Provider [phone] Reason for Referral * Outpatient Services (Routine) - Closed Specialty Diagnoses / Procedures Referred By Contac t Referred To Contact CT Scan Diagnoses Pancreatic adenocarcinoma Procedures CT ABDOMEN PELVIS W CONTRAST Andi Marley MD [address] [place] [address] Referral ID Status Reason Start Date Expiration Date V isits Requested Visits Authorized [id number] Closed [facility] CTS 12/24/2014 01/22/2015 1 1 Reason for Visit * Reason Comments Follow Up Encounter Details Date Type Department Care Team (Latest Contact Info) Description 07/03/2014 1:00 PM CDT Office Visit [facility] Surgical Spec [place] [address] [place] [address] Andi Marley MD [address] [place] [address] Pancreatic adenocarcinoma (Primary Dx) Social [...] at [facility] OR [facility] (Not in a hospital admission) Allergies [...] pelvic disease. Dictated from location 1 - [facility]. DLP = ??386.82 Narrative 12/25/2014 11:30 AM [...] pelvic disease. Dictated from location 1 - [facility]. DLP = 386.[address] ORDERABLES documented in this encounter Visit Diagnoses Diagnosis Pancreatic adenocarcinoma- Primary Malignant neoplasm of pancreas, part unspecified Pancreatic adenocarcinoma Malignant neoplasm of pancreas, part unspecified documented in this encounter Care Teams Patient Relations Manager Relationship Specialty Start Date End Date Jareth Lopez MD [address] [place] [address] PCP - General Family Practice 04/11/13 documented as of this encounter
--- OUTSIDE RECORDS SUMMARY | 2024-09-27 23:27 | XMS_ITS | Encounter Summary ---
Author Organization [facility] Address [address] [place] [address] Care Team Providers Care Flatwork Finisher Name Role Phone Jareth Lopez MD Primary Care Provider [phone] Reason for Visit * Auth/Cert Specialty Diagnoses / Procedures Referred By Contac t Referred To Contact General Surgery Diagnoses Ventral incisional hernia Procedures HERNIA VENTRAL REPAIR [facility] [address] [place] [address] Referral ID Status Reason Start Date Expiration Date Visits Re quested Visits Authorized [id number] 1 1 Encounter Details Date Type Department Care Team (Latest Contact Info) Description 02/07/2016 6:50 AM CDT - 02/07/2016 4:35 PM CDT Hospital Encounter [facility] [address] [facility] [address] [place] [place] [address] Andi Marley MD [address] [place] [address] Ventral incisional hernia Discharge Disposition: [...] not uncommon. The patient may take any ityb-qtk-jotprim medication(s) that have worked previously to correct [...] to call the office for postoperative appointment ([phone]). The patient will need to be seen [...] or come to the Emergency Room at [facility] ([phone]) or the nearest Emergency Room. In an [...] by mouth daily. L GASSERI/B BIFIDUM/B LONGUM ([facility] ORAL) Take by mouth. cyclobenzaprine (FLEXERIL) [...] WHIPPLE?? performed by Andi Marley MD at [facility] OR [facility]? Hx lumbar diskectomy?? Left?? 03/29/2015? SPINAL MICRODISCECTOMY MINIMALLY INVASIVE - LEFT L5-S1 M.I. DISCECTOMY performed by Truman Streeter MD at [facility] OR [facility]? Prescriptions Prior to Admission (Not in [...] Marley MD - 02/07/2016 11:04 PM CDT [place], [place] [address] Operative Report CSN: [id number] DATE OF SERVICE: 02/07/2016 SURGEON Andi Marley [...] recovery room in stable condition. RLN:MEDQ DID: [id number] Dictated by: Andi Marley M.D. * Amirah-OP - Мария Alatorre RN - 02/07/2016 2:01 PM CDT Patient instructed on use of incentive spirometer. * Brief Op Note - Andi Marley MD - 02/07/2016 12:42 PM CDT Brief Postoperative Note Elena Fernández [id number] Pre-operative Diagnosis: Ventral incisional hernia [K43.2] Post-operative [...] Implant Name Type Inv. Item Serial No. Skeet Operator Lot No. LRB No. Used Action MESH PROCEED MED PVPM - [id number] Mesh MESH PROCEED MED PVPM pvpm [employer] [id number] N/A1 Implanted Estimated Blood Loss: [address] Andi Marley MD * Amirah-OP - Lorna Yepez RN - 02/07/2016 9:31 AM CDT glucoscan 142 documented in this encounter Miscellaneous Notes * Care Plan - Renea Cary RN - 02/07/2016 3:57 PM CDT Potential for pain related to surgical/procedural intervention Interventions: Assess level of pain/comfort utilizing verbal/nonverbal pain scales; assess culturalor mandaeism indicators attached to pain; administer pain medications [...] Discharge instructions explained to patient and responsible libertarian understanding verified. * Care Plan - Мария Alatorre RN - 02/07/2016 12:52 PM CDT Potential for pain related to surgical/procedural intervention Interventions: Assess level of pain/comfort utilizing verbal/nonverbal pain scales; assess culturalor mandaeism indicators attached to pain; administer pain medications [...] - 99 mg/dL 02/07/2016 1:10 PM CDT [facility] [employer] [facility] Whole blood specimen (specimen) 02/07/2016 1:07 PM CDT 02/07/2016 1:10 PM CDT Andi Marley MD POINT OF CARE TESTIN G [facility] [employer] [facility] CLIA# [id number] [address] [place] [address] * PATHOLOGY (02/07/2016 12:20 PM CDT) CASE REPORT Surgical Pathology Report ? Case: [id number] ? Authorizing Provider: ??Andi Marley MD ? Collected: ? 02/07/2016 12:20 PM ? Ordering Location: ? [facility] ?Received: ?02/07/2016 12:48 PM ? Operating Room ? Pathologist: ? Isai Olson MD ? Specimen: ?Skin, abdominal scar ? 02/10/2016 11:35 AM CDT [facility] FINAL DIAGNOSIS SKIN, ABDOMEN, EXCISION: - DERMAL SCAR AND KELOID. 02/10/2016 11:35 AM T [facility] IMEN DESCRIPTION Abdominal scar. 02/10/2016 11:35 AM T [facility] OPERATIVE PROCEDURE Hernia ventral incisional repair. 02/10/2016 11:35 AM T [facility] CLINICAL INFORMATION Ventral incisional hernia, K43.2. 02/10/2016 11:35 AM CDT [facility] GROSS DESCRIPTION Received in a single container labeled Elena Fernández, abdominal scar is a 20.5 x 1.7 x 1.9-cm unoriented excision of mackay skin. The skin surface is remarkable for a 20.5-cm long healed linear scar. No additional lesions are identified. Administrator sections are submitted in cassette A1. KLA/jmp 02/10/2016 11:35 AM T [facility] MICROSCOPIC DESCRIPTION The slide is labeled [id number] and Elena Fernández. The abdominal excision demonstrates dermal scar with lobulated collections of increased number of fibroblasts, blood vessels, and entrapped thick, eosinophilic, keloidal collagen bundles. 02/10/2016 11:35 AM T [facility] COMMENT Special stain and/or immunohistochemical results are interpreted with controls that demonstrate appropriate staining reactions. Note on use of immunocytochemistry reagents: This test was developed and its performance characteristic determined by [facility], Department of Laboratory Medicine. It has [...] WF, WB and WH are performed by [address], [address]. All other case types are performed by [address] [facility], [address]. 02/10/2016 11:35 AM T [facility] Tissue TISSUE SPECIMEN FROM SKIN / Unknown 02/07/2016 12:20 PM CDT 02/07/2016 12:48 PM CDT Andi Marley MD PATHOLOGY/CYTOLOGY Corinne JIMENEZ [facility] CLIA# [id number] [address] [place] [address] * (ABNORMAL) POC GLUCOSE (02/07/2016 9:29 AM CDT) GLUCOSE POC 142(H) 79 - 99 mg/dL 02/07/2016 9:40 AM CDT [facility] Whole blood specimen (specimen) 02/07/2016 9:29 AM CDT 02/07/2016 9:40 AM CDT Andi Marley MD POINT OF CARE TESTIN G [facility] [employer] [facility]# [id number] [address] [place] [address] documented in this encounter Visit Diagnoses Diagnosis [...] Pre-op documented in this encounter Care Teams Flatwork Finisher Relationship Specialty Start Date End Date Jareth Lopez MD [address] [place] [address] PCP - General Family Practice 04/11/13 documented as of this encounter
--- OUTSIDE RECORDS SUMMARY | 2024-09-27 23:27 | XMS_ITS | Encounter Summary ---
Author Organization [facility] Address [address] [place] [address] Care Team Providers Care Milanese Knitting Machine Operator Name Role Phone Jareth Lopez MD Primary Care Provider [phone] Reason for Visit * Auth/Cert - Closed Specialty Diagnoses / Procedures Referred By Contac t Referred To Contact General Surgery Diagnoses HERNIATED LUMBAR DISC Procedures SPINAL MICRODISCECTOMY MINIMALLY INVASIVE [facility] [address] [place] [address] Referral ID Status Reason Start Date Expiration Date Visits Re quested Visits Authorized [id number] Closed 1 1 Encounter Details Date Type Department Care Team (Late st Contact Info) Description 03/29/2015 9:15 AM CDT - 03/29/2015 11:15 AM CDT Surgery [facility] Operating Room [address] [place] [address] Truman Streeter MD [address] [id number] SPINAL MICRODISCECTOMY MINIMALLY INVASIVE - LEFT L5-S1 [...] Neurological Surgery 1 Case Notes BCBS, # [id number], CPT: 95046 documented in this encounter Social History Tobacco [...] the BRAT diet (Bananas, Rice, Applesauce and [place]). Pain Medication given at . Next dose [...] or come to the Emergency Room at [facility] ([phone]) or the nearest Emergency Room. In an [...] by mouth daily. L GASSERI/B BIFIDUM/B LONGUM ([employer] ORAL) Take by mouth. HYDROcodone-acetaminophen (NORCO) 10-325 [...] Streeter MD - 03/29/2015 8:15 PM CDT [place], [place] [address] Operative Report CSN: [id number] DATE OF SERVICE: 03/29/2015 SURGEON Truman Streeter MD PREOPERATIVE DIAGNOSIS Right L5-S1 disk herniation with radiculopathy. POSTOPERATIVE DIAGNOSIS Right L5-S1 disk herniation with radiculopathy. OPERATION NAME 1. Right L5-S1 microdiskectomy and foraminotomy. 2. Interpretation of intraoperative fluoroscopy. 3. Utilization of intraoperative microsurgical technique. HOME ECONOMIST CONSUMER SERVICE YANCY Benjamin ANESTHESIA Endotracheal. COMPLICATION None. ESTIMATED [...] aspect of the set was drilled with Nulu high-speed air drill. The ligamentum flavum was removed exposing the thecal sac and the exiting nerve root.These were retracted medially, and there was a large free disk fragment and clear annular tear. Using the [place] and down pushing curettes, several large free [...] the duration of the procedure. KE:CHANDRAKANT DID: [id number] Dictated by: Truman Streeter MD * Anesthesia [...] - 03/29/2015 11:17 AM CDT Dictation #: [id number] * Operative Report - Truman Streeter MD - 03/29/2015 11:16 AM CDT Brief Post-Operative Note Pre-Operative Diagnosis: Right L5-S1 disc herniation with radiculopathy Post-Operative Diagnosis: Right L5-S1 disc herniation with radiculopathy Operation: Right L5-S1 microdiscectomy Surgeon: Truman Streeter MD, FACS Parachute Packer: YANCY Benjamin Anesthetic: General Endotracheal Complications:None EBL: Minimal Truman Streeter MD, FACS Neurosurgery documented in this encounter Miscellaneous Notes * Care Plan - Clau Guzmán RN - 03/29/2015 1:35 PM CDT Potential for pain related to surgical/procedural intervention Interventions: Assess level of pain/comfort utilizing verbal/nonverbal pain scales; assess culturalor anglican indicators attached to pain; administer pain medications [...] pain/comfort utilizing verbal/nonverbal pain scales; assess culturalor anglican indicators attached to pain; administer pain medications [...] HERNIATED LUMBAR DISC Case Notes BCBS, # [id number], CPT: 14481 POC GLUCOSE Routine 03/29/2015 7:32 AM CDT [...] - 99 mg/dL 03/29/2015 7:35 AM CDT [facility] Blood, capillary 03/29/2015 7:32 AM CDT 03/29/2015 7:35 AM CDT Truman Streeter MD POINT OF CARE GREER [facility] Organization Address City/State/[facility] Co de Phone Number [facility]# [id number] [address] [place] [address] documented in this encounter Visit Diagnoses Not [...] MD) documented in this encounter Care Teams Milanese Knitting Machine Operator Relationship Specialty Start Date End Date Jareth Lopez MD [address] [place] [address] PCP - General Family Practice 04/11/13 documented as of this encounter
--- OUTSIDE RECORDS SUMMARY | 2024-09-27 23:27 | XMS_ITS | Encounter Summary ---
Author Organization [facility] Address [address] [place] [address] Care Team Providers Care Zoology Teacher Name Role Phone Jareth Lopez MD Primary Care Provider Reason for Visit * Reason Comments Post-op Visit panc Encounter Details Date Type Department Care Team (Latest Contact Info) Description 01/04/2014 10:30 AM CDT Office Visit [facility] Surgical Spec [place] B [address] [place] [address] Andi Marley MD [address] [place] [address] Pancreas cyst (Primary Dx); Pancreatic [...] She has no drainage from the incision. Nuuk-wquy-ktwlbq transverse incision with no signs of infection, [...] unspecified documented in this encounter Care Teams Zoology Teacher Relationship Specialty Start Date End Date Jareth Lopez MD [address] [place] [address] PCP - General Family Practice 04/11/13 documented as of this encounter
--- OUTSIDE RECORDS SUMMARY | 2024-09-27 23:27 | XMS_ITS | Encounter Summary ---
Author Organization [facility] Address [address] [place] [address] Care Team Providers Care Silk Top Hat Body Maker Name Role Phone Jareth Lopez MD Primary Care Provider Reason for Visit * Reason Comments Post-op Visit panc Encounter Details Date Type Department Care Team (Latest Contact Info) Description 01/18/2014 10:30 AM CDT Office Visit [facility] Surgical Spec [place] B [address] [place] [address] Andi Marley MD [address] [place] [address] Pancreatic adenocarcinoma (Primary Dx) Social [...] She has not lost any further weight. Yrwj-ouqz-hisiwx transverse incision with no signs of infection [...] unspecified documented in this encounter Care Teams Silk Top Hat Body Maker Relationship Specialty Start Date End Date Jareth Lopez MD [address] [place] [address] PCP - General Family Practice 04/11/13 documented as of this encounter
--- OUTSIDE RECORDS SUMMARY | 2024-09-27 23:27 | XMS_ITS | Encounter Summary ---
Author Organization [email or web address] [facility] Address [address] [place] [address] Care Team Providers Care Boiler Room Helper Name Role Phone Jareth Lopez MD Primary Care Provider Reason for Referral * Outpatient Services (Routine) - Closed Specialty Diagnoses / Procedures Referred By Armandoac bernie Referred To Contact CT Scan Diagnoses Pancreatic adenocarcinoma Procedures CT ABDOMEN PELVIS W CONTRAST Andi Marley MD [address] [place] [address] Referral ID Status Reason Start Date Expiration Date V isits Requested Visits Authorized [id number] Closed STL CTS 11/26/2015 12/25/2015 1 1 Reason for Visit * Outpatient Services (Routine) - Closed Specialty Diagnoses / Procedures Referred By Vasquez gibbs Referred To Contact CT Scan Diagnoses Pancreatic adenocarcinoma Procedures CT ABDOMEN PELVIS W CONTRAST Andi Marley MD [address] [place] [address] Referral ID Status Reason Start Date Expiration Date V isits Requested Visits Authorized [id number] Closed STL CTS 11/26/2015 12/25/2015 1 1 Encounter Details Date Type Department Care Team (Latest Contact Info) Description 12/24/2015 9:54 AM CDT - 12/24/2015 11:59 PM CDT Hospital Encounter [facility] CT Scan [address] [place] [address] [place] [address] [place] [address] Andi Marley MD [address] [facility] [address] [place] [address] Discharge Disposition: Home or Self [...] Body Mass Index 26.93 09/26/2015 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 multivitamin (DAILY-JASPER) tablet Take 1 Tab by mouth daily. triamterene-hydrochlorothi azide (MAXZIDE 25) 37.5-25 mg tablet Take 1 Tab by mouth daily. L GASSERI/B BIFIDUM/B LONGUM ([employer] ORAL) Take by mouth. documented as of [...] - 1.00 mg/dL 12/24/2015 10:50 AM CDT [facility] GFR >60 >=60 mL/min/1.7 3 sq meter 12/24/2015 10:50 AM CDT [facility] [employer] [facility] Comment: eGFR has not been [...] 3 sq meter 12/24/2015 10:50 AM CDT [facility] [employer] [facility] Blood, capillary 12/24/2015 10:44 AM CDT 12/24/2015 10:50 AM CDT Andi Marley MD POINT OF CARE TESTIN G [facility] [employer] [facility]# [id number] [address] [place] [address] [place] [address] documented in this encounter Visit Diagnoses Diagnosis [...] mL documented in this encounter Care Teams Boiler Room Helper Relationship Specialty Start Date End Date Jareth Lopez MD [address] [place] [address] PCP - General Family Practice 04/11/13 documented as of this encounter
--- OUTSIDE RECORDS SUMMARY | 2024-09-27 23:27 | XMS_ITS | Encounter Summary ---
Author Organization [facility] Address [address] [place] [address] Care Team Providers Care Service Desk Team Lead Name Role Phone Jareth Lopez MD Primary Care Provider Reason for Referral * Outpatient Services (Routine) - Closed Specialty Diagnoses / Procedures Referred By Contac t Referred To Contact CT Scan Diagnoses Pancreatic adenocarcinoma Procedures CT ABDOMEN PELVIS W CONTRAST [facility] [place] [address] [place] [address] [place] [phone] Referral ID Status Reason Start Date Expiration Date V isits Requested Visits Authorized [id number] Closed STL CTS 06/12/2014 07/13/2014 1 1 Reason for Visit * Outpatient Services (Routine) - Closed Specialty Diagnoses / Procedures Referred By Contac t Referred To Contact CT Scan Diagnoses Pancreatic adenocarcinoma Procedures CT ABDOMEN PELVIS W CONTRAST [facility] Surgical Spec [place] [address] [place] [address] [place] [address] Referral ID Status Reason Start Date Expiration Date V isits Requested Visits Authorized [id number] Closed STL CTS 06/12/2014 07/13/2014 1 1 Encounter Details Date Type Department Care Team (Latest Contact Info) Description 07/03/2014 8:18 AM CDT - 07/03/2014 11:59 PM CDT Hospital Encounter [facility] CT [address] [address] [place] [address] Andi Marley MD [address] [facility] [address] [place] [address] Discharge Disposition: Home or Self [...] by mouth daily. L GASSERI/B BIFIDUM/B LONGUM ([employer] HEALTH ORAL) Take by mouth. docusate sodium [...] CDT IMAGING SERVICES MEDICATION and FLUSH PROTOCOL [facility] ORDERS ARE ENTERED ???PER PROTOCOL?? Communication Orders: [...] other acute abnormality. Dictated from Location 1, [facility] ? Narrative 07/03/2014 10:[address] [...] other acute abnormality. Dictated from Location 1, [facility] Andi Marley MD CT ORDERABLES * POC CREATININE (07/03/2014 9:03 AM CDT) CREATININE POC 0.9 0.5 - 1.0 mg/dL INTERFACE SYSTEM Comment: The calculation for the estimated GFR on the i-STAT POC instrument has been changed to correspond to the IDMS-traceable MDRD Study, upon the recommendation of the micro photographer of the i-STAT instrument. ??The change was effective in our laboratory 09/10/2008. ??The impact of this change to the estimated GFR is minimal. ??This calculation is used by the main laboratory methodology also. CLIA LICENSE [id number] 1 INTERFACE SYSTEM GFR, >60 >=60 mL/min/1. [...] mL documented in this encounter Care Teams Service Desk Team Lead Relationship Specialty Start Date End Date Jareth Lopez MD [address] [place] [address] PCP - General Family Practice 04/11/13 documented as of this encounter
--- OUTSIDE RECORDS SUMMARY | 2024-09-27 23:27 | XMS_ITS | Encounter Summary ---
Author Organization [facility] Address [address] [place] [address] Care Team Providers Care Hotel Services Sales Representative Name Role Phone Jareth Lopez MD Primary Care Provider [phone] Reason for Referral * Outpatient Services (Routine) - Closed Specialty Diagnoses / Procedures Referred By Vasquez gibbs Referred To Contact CT Scan Diagnoses Pancreatic adenocarcinoma Procedures CT ABDOMEN PELVIS W CONTRAST Andi Marley MD [address] [place] [phone] Referral ID Status Reason Start Date Expiration Date V isits Requested Visits Authorized [id number] Closed STL CTS 12/24/2014 01/22/2015 1 1 Reason for Visit * Auth/Cert - Closed Specialty Diagnoses / Procedures Referred By Vasquez gibbs Referred To Contact Radiology [facility] Scan [address] [place] [address] Referral ID Status Reason Start Date Expiration Date Visits Re quested Visits Authorized [id number] Closed 1 1 Encounter Details Date Type Department Care Team (Latest Contact Info) Description 12/25/2014 8:59 AM CDT - 12/25/2014 11:59 PM CDT Hospital [facility] [address] [place] [address] Andi Marley MD [address] [place] [phone] Discharge Disposition: Home or Self Care Social [...] by mouth daily. L GASSERI/B BIFIDUM/B LONGUM ([employer] ORAL) Take by mouth. METHYLCELLULOSE ([employer] ORAL) [...] abdominal or pelvic disease. Dictated from location [address] [place] [address]. DLP = ??386.82 Narrative 12/25/2014 11:30 AM [...] or pelvic disease. Dictated from location - [facility]. DLP = [phone] ORDERABLES * POC CREATININE (12/25/2014 9:29 AM CDT) CREATININE POC 0.7 0.5 - 1.0 mg/dL INTERFACE SYSTEM Comment: The calculation for the estimated GFR on the i-STAT POC instrument has been changed to correspond to the IDMS-traceable MDRD Study, upon the recommendation of the hand box coverer of the i-STAT instrument. ??The change was effective in our laboratory 09/10/2008. ??The impact of this change to the estimated GFR is minimal. ??This calculation is used by the main laboratory methodology also. Your.MDIA LICENSE [id number] 1 INTERFACE SYSTEM GFR, >60 >=60 mL/min/1. [...] mL documented in this encounter Care Teams Hotel Services Sales Representative Relationship Specialty Start Date End Date Jareth Lopez MD [address] [place] [address] PCP - General Family Practice 04/11/13 documented as of this encounter
--- OUTSIDE RECORDS SUMMARY | 2024-09-27 23:27 | XMS_ITS | Encounter Summary ---
Author Organization [facility] Address [address] [place] [address] Care Team Providers Care Rejected Items Clerk Name Role Phone Jareth Lopez MD Primary Care Provider Encounter Details Date Type Department Care Team (Latest Contact Info) Description 12/21/2013 3:54 PM CDT - 12/21/2013 11:59 PM T Hospital Encounter [facility] Laboratory Services [facility] [place] A [address] [place] [address], [place] [address] Andi Marley MD [address] [place] [address] Discharge Disposition: Home or Self [...] by mouth daily. L GASSERI/B BIFIDUM/B LONGUM ([employer] [facility] ORAL) Take by mouth. ondansetron (ZOFRAN [...] CDT) WBC 12.9(H) 4.0 - 9.8 K/uL [employer] LABORATORY SERVICES - [facility] RBC 4.39 3.90 - 4.90 M/uL [employer] [facility]ATORY SERVICES - [facility] HEMOGLOBIN 13.3 11.8 - 14.8 g/dL [employer] [facility]ORATORY SERVICES - [facility] HEMATOCRIT 41.1 35.5 - 44.0 % [facility] LABORATORY SERVICES - [facility] MCV 93.6 82.0 - 99.0 fL [facility] LABORATORY SERVICES - [facility] MCH 30.3 27.2 - 32.6 pg [facility] LABOR[facility]ORY SERVICES - [facility] MCHC 32.4 31.5 - 35.5 % [facility] LABORATORY SERVICES - [facility] PLATELETS 450(H) 140 - 350 K/uL [facility] MPV 11.1 9.3 - 12.4 fL [facility] - . [facility] RDW 13.7 11.5 - 14.5 % [facility] RDW-STDEV 46.1 37.1 - 48.7 fL [facility] NEUTROPHILS 74(H) 45 - 70 % [facility] LYMPHOCYTES 17 16 - 45 % [facility] - . [facility] MONOCYTES 7 3 - 13 % [facility] EOSINOPHILS 2 0 - 7 % [facility] - . [facility] BASOPHILS 0 0 - 2 % [facility] - . [facility] NEUTROPHIL ABSOLUTE 9.50(H) 1.90 - 7.00 K/uL [facility] LYMPHOCYTE ABSOLUTE 2.20 0.70 - 4.50 K/uL [facility] MONOCYTE ABSOLUTE 0.96 0.10 - 1.30 K/uL [facility] - [facility] EOSINOPHIL ABSOLUTE 0.22 0.00 - 0.70 K/uL [facility] - . [facility] BASOPHILS ABSOLUTE 0.02 0.00 - 0.20 K/uL [facility] Blood specimen (specimen) 12/21/2013 4:00 PM CDT 12/22/2013 9:38 AM CDT Andi Marley MD HEMATOLOGY ORDERABLE S [employer] LABORATORY SERVICES [facility]# [id number] [address] [facility] [place] [id number] * (ABNORMAL) COMPREHENSIVE METABOLIC PANEL (12/21/2013 4:00 PM CDT) SODIUM 139 135 - 145 mmol/L [employer] LABORATORY SERVICES [facility] POTASSIUM 4.2 3.5 - 4.9 mmol/L [facility] CHLORIDE 94(L) 96 - 108 mmol/L [facility] CO2 28 22 - 30 mmol/L [facility] CALCIUM 10.4(H) 8.6 - 10.2 mg/dL [facility] BUN 20 6 - 20 mg/dL [facility] LABORATORY [facility] CREATININE 0.83 0.51 - 0.95 mg/dL [facility] LABORATORY [facility] GLUCOSE 160(H) 65 - 99 mg/dL [facility] LABORATORY [facility] TOTAL PROTEIN 8.0 6.3 - 8.6 g/dL [facility] LABORATORY [facility] ALBUMIN 4.4 3.4 - 4.8 g/dL [facility] LABORATORY [facility] BILIRUBIN TOTAL 0.3 0.2 - 1.0 mg/dL [facility] LABORATORY [facility] ALKALINE PHOSPHATASE 75 35 - 104 U/L [facility] LABORATORY [facility] AST 22 12 - 32 U/L [facility] LABORATORY [facility] ALT 18 0 - 31 U/L [facility] LAB[facility]ORY [facility] GFR, >60 >=60 mL/min/1.7 sq meter [facility] LAB[facility]ATORY [facility] GFR >60 >=60 mL/min/1.7 sq meter [facility] LABORATORY [facility] Comment: eGFR has not been validated [...] AM CDT Andi Marley MD CHEMISTRY ORDERABLES [facility]# [id number] [address] [place] [address] documented in this encounter Visit Diagnoses Diagnosis Pancreas cyst Cyst and pseudocyst of pancreas documented in this encounter Care Teams Rejected Items Clerk Relationship Specialty Start Date End Date Jareth Lopez MD [address] [place] [phone] PCP - General Family Practice 04/11/13 documented as of this encounter
--- OUTSIDE RECORDS SUMMARY | 2024-09-27 23:27 | XMS_ITS | Encounter Summary ---
Author Organization [facility] Address [address] [place] [address] Care Team Providers Care Preventive Maintenance Coordinator Name Role Phone Jareth Lopez MD Primary Care Provider [phone] Reason for Referral * Outpatient Services (Routine) - Closed Specialty Diagnoses / Procedures Referred By Vasquez gibbs Referred To Contact CT Scan Diagnoses Pancreatic adenocarcinoma Procedures CT ABDOMEN PELVIS W CONTRAST Andi Marley MD [address] [place] [phone] Referral ID Status Reason Start Date Expiration Date V isits Requested Visits Authorized [id number] Closed STL CTS 06/04/2015 07/03/2015 1 1 Reason for Visit * Auth/Cert - Closed Specialty Diagnoses / Procedures Referred By Vasquez gibbs Referred To Contact Radiology [facility] Scan [address] [place] [address] Referral ID Status Reason Start Date Expiration Date Visits Re quested Visits Authorized [id number] Closed 1 1 Encounter Details Date Type Department Care Team (Latest Contact Info) Description 06/25/2015 9:10 AM CDT - 06/25/2015 11:59 PM CDT [facility] [address] [place] [address] Andi Marley MD [address] [place] [phone] Discharge Disposition: Home or Self Care Social [...] by mouth daily. L GASSERI/B BIFIDUM/B LONGUM ([employer] ORAL) Take by mouth. documented as of [...] DLP: 312.29 mGy-cm Dictated from Location 1: [facility] Narrative 06/26/2015 10:[address] [...] - 1.00 mg/dL 06/25/2015 9:30 AM CDT [facility] LABORATORY [facility] GFR >60 >=60 mL/min/1.7 3 sq meter 06/25/2015 9:30 AM CDT [facility] LABORATORY [facility] Comment: eGFR has not been [...] 3 sq meter 06/25/2015 9:30 AM CDT [facility] LABORATORY SERVICES [facility] Blood, capillary 06/25/2015 9:26 AM CDT 06/25/2015 9:30 AM CDT Andi Marley MD POINT OF CARE TESTIN G [facility] Organization Address City/State/ZIP Co de Phone Number [facility] LABORATORY SERVICES [facility]# [id number] [address] [facility] [place] [address] documented in this encounter Visit Diagnoses Diagnosis [...] mL documented in this encounter Care Teams Preventive Maintenance Coordinator Relationship Specialty Start Date End Date Jareth Lopez MD [address] [place] [address] PCP - General Family Practice 04/11/13 documented as of this encounter
--- OUTSIDE RECORDS SUMMARY | 2024-09-27 23:27 | XMS_ITS | Encounter Summary ---
Author Organization [facility] Address [address] [place] [address] Care Team Providers Care Wrecking Supervisor Name Role Phone Jareth Lopez MD Primary Care Provider Encounter Details Date Type Department Care Team (Latest Contact Info) Description 01/27/2016 2:48 PM CDT - 01/27/2016 11:59 PM T Hospital Encounter [facility] S [facility] [address] [place] [place] [address] Ann Griggs MD [address] [facility] [address] [place] [address] Discharge Disposition: Home or Self [...] by mouth daily. L GASSERI/B BIFIDUM/B LONGUM ([facility] [employer] HEALTH ORAL) Take by mouth. cyclobenzaprine (FLEXERIL) [...] Schultz Age: 65 y.o. Sex: female CSN: [id number] Procedure: HERNIA VENTRAL INCISIONAL REPAIR Dr. Griggs [...] mouth daily. ??? L GASSERI/B BIFIDUM/B LONGUM ([employer] [facility] ORAL) Take by mouth. ??? [...] a child ??? 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 At risk for obstructive sleep apnea [...] WHIPPLE performed by Ann Griggs MD at [facility] OR [facility] ??? Hx lumbar diskectomy Left 03/29/2015 SPINAL MICRODISCECTOMY MINIMALLY INVASIVE - LEFT L5-S1 M.I. DISCECTOMY performed by Truman Streeter MD at [facility] OR MAIN History Substance Use Topics ??? [...] was obtained directly from the patient or appliance service representative or caregiver or another available healthcare resource and updated in [facility] EMR. REPORT AND NECESSARY FOLLOW-UP History and physical performed in [place], tests (ECG and/or blood work) reviewed. Abnormal Results Found: no Further Testing or Evaluation Required: no Final [place] Center Review: May proceed with procedure/surgery: yes Stop bang score is 2. Contreras Moulton CLINICAL SOCIOLOGIST-C * Amirah-OP - Deidre Donovan RN - [...] - 145 mmol/L 01/27/2016 5:51 PM CDT [employer] LABORATORY SERVICES - [facility] POTASSIUM 3.9 3.5 - 5.0 mmol/L 01/27/2016 5:51 PM CDT [employer] LABORATORY SERVICES - . [facility] CHLORIDE 99 98 - 107 mmol/L 01/27/2016 5:51 PM CDT [employer] LABORATORY SERVICES - . [facility] CO2 26 22 - 29 mmol/L 01/27/2016 5:51 PM CDT [employer] LABORATORY SERVICES - . [facility] CALCIUM 8.7 8.6 - 10.2 mg/dL 01/27/2016 5:51 PM CDT [employer] LABORATORY SERVICES - [facility] BUN 14 8 - 23 mg/dL 01/27/2016 5:51 PM CDT [employer] LABORATORY SERVICES - . [facility] CREATININE 0.71 0.51 - 0.95 mg/dL 01/27/2016 5:51 PM CDT [employer] LABORATORY SERVICES - . [facility] GLUCOSE 138(H) 79 - 99 mg/dL 01/27/2016 5:51 PM CDT [employer] LABORATORY SERVICES - [facility] GFR >60 >=60 mL/min/1.7 3 sq meter 01/27/2016 5:51 PM CDT [facility] Comment: eGFR has not been validated [...] 3 sq meter 01/27/2016 5:51 PM CDT [facility] ANION GAP 16 8 - 16 mmol/L 01/27/2016 5:51 PM CDT [facility] Blood Collection / Unknown 01/27/2016 4:36 PM CDT 01/27/2016 4:36 PM CDT Landen Osman MD CHEMISTRY ORDERABLES [facility]# [id number] [place] [address] * EKG 12-LEAD (01/27/2016 3:33 PM CDT) 01/27/2016 3:33 PM CDT Narrative INTERFACE SYSTEM - 01/27/2016 5:00 PM CDT ? Stationary ECG Study ? [facility] ? Test Date: ?01/27/2016 3:33 PM Pat Name: ? ELENA SCHULTZ ?Department: ?? 7 ?Room: ? Gender: ? 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 : ?[id number] ? Requested By: ANN GRIGGS L Order Number: [id number] ?Reading MD: ?? Allan Barrera ? Measurements Intervals ?[place] ? Rate: ? 77 ? P: ?43 AL: ? 152 ?QRS: ?37 QRSD: ? 93 ? T: ?67 QT: ? 393 ? QTc: ?446 ? Interpretive Statements ? 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: : 1950 Requested By: ANN Wells Order Number: [id number] Reading MD: Allan Barrera Measurements Intervals [place] Rate: 77 P: 43 AL: 152 QRS: 37 QRSD: 93 T: 67 QT: 393 QTc: 446 Interpretive Statements SINUS RHYTHM Nonspecific ST Segment Abnormality Electronically Signed On 01-27-2016 17:00:51 CDT by Allan Barrera Landen Osman MD ECG ORDERABLES Performing Organization Address City/State/[facility] Co de Phone Number INTERFACE SYSTEM Refer to clinic/hospital department documented in this encounter Visit Diagnoses Not on filedocumented in this encounter Care Teams Wrecking Supervisor Relationship Specialty Start Date End Date Jareth Lopez MD [address] [place] [address] PCP - General Family Practice 04/11/13 documented as of this encounter
--- OUTSIDE RECORDS SUMMARY | 2024-09-27 23:27 | XMS_ITS | Encounter Summary ---
Author Organization [facility] Address [address] [place] [address] Care Team Providers Care Claim Investigator Name Role Phone Jareth Lopez MD Primary Care Provider Encounter Details Date Type Department Care Team (Latest Contact Info) Description 03/21/2015 3:06 PM CDT - 03/21/2015 11:59 PM [facility][NOTE 3] Hospital Encounter [facility] [address] [place] [phone] Truman Streeter MD [address] [facility] [address] [place] [address] Discharge Disposition: Home or Self [...] by mouth daily. L GASSERI/B BIFIDUM/B LONGUM ([facility] ORAL) Take by mouth. HYDROcodone-acetaminophen (NORCO) [...] Schultz Age: 64 y.o. Sex: female CSN: [id number] Procedure:SPINAL MICRODISCECTOMY MINIMALLY INVASIVE - LEFT L5-S1 [...] mouth daily. ??? L GASSERI/B BIFIDUM/B LONGUM ([facility]) Take by mouth. ??? [...] WHIPPLE performed by Andi Marley MD at [facility] OR MAIN History Substance Use Topics ??? [...] was obtained directly from the patient or business representative or caregiver or another available healthcare resource and updated in [facility] EMR. REPORT AND NECESSARY FOLLOW-UP History and physical performed in [place], tests (ECG, blood work) reviewed. Abnormal Results Found: no Further Testing or Evaluation Required: no Final [place] [facility] Review: May proceed with procedure/surgery: yes [...] ABO GROUP O 03/21/2015 11:12 PM CDT [facility] LABORATORY [facility] RH (D) TYPE Positive 03/21/2015 11:12 PM CDT [facility] LAB[facility]ORY [facility] ANTIBODY SCREEN Negative 03/21/2015 11:12 PM CDT [facility] Blood specimen (specimen) 03/21/2015 4:43 PM CDT 03/21/2015 4:43 PM CDT Truman Streeter MD BLOOD BANK ORDERABLE S [facility] CLIA# [id number] [address] [place] [address] * CBC WITH DIFFERENTIAL (03/21/2015 4:12 PM CDT) WBC 8.2 4.0 - 9.8 K/uL 03/21/2015 4:35 PM CDT [facility] RBC 4.38 3.90 - 4.90 M/uL 03/21/2015 4:35 PM CDT [facility] HEMOGLOBIN 14.0 11.8 - 14.8 g/dL 03/21/2015 4:35 PM CDT [facility] HEMATOCRIT 40.6 35.5 - 44.0 % 03/21/2015 4:35 PM CDT [facility] MCV 92.7 82.0 - 99.0 fL 03/21/2015 4:35 PM CDT [facility] MCH 32.0 27.2 - 32.6 pg 03/21/2015 4:35 PM CDT [facility] MCHC 34.5 30.0 - 36.0 g/dL 03/21/2015 4:35 PM CDT [facility] RDW 12.7 11.5 - 14.5 % 03/21/2015 4:35 PM CDT [facility] RDW-STDEV 42.1 37.1 - 48.7 fL 03/21/2015 4:35 PM CDT [facility] PLATELETS 266 140 - 350 K/uL 03/21/2015 4:35 PM CDT [facility] MPV 11.5 9.3 - 12.4 fL 03/21/2015 4:35 PM CDT [facility] NEUTROPHILS 65 45 - 70 % 03/21/2015 4:35 PM CDT [facility] LYMPHOCYTES 23 16 - 45 % 03/21/2015 4:35 PM CDT [facility] - . NEAL MONOCYTES 8 3 - 13 % 03/21/2015 4:35 PM CDT [facility] - . NEAL EOSINOPHILS 4 <7 % 03/21/2015 4:35 PM CDT [facility] . NE[facility] BASOPHILS 0 <3 % 03/21/2015 4:35 PM CDT [facility] NEUTROPHIL ABSOLUTE 5.31 1.90 - 7.00 K/uL 03/21/2015 4:35 PM CDT [facility] LYMPHOCYTE ABSOLUTE 1.91 0.70 - 4.50 K/uL 03/21/2015 4:35 PM [address] [facility] - . NEAL MONOCYTE ABSOLUTE 0.62 0.10 - 1.30 K/uL 03/21/2015 4:35 PM CD[address] [facility] - ST. NEAL EOSINOPHIL ABSOLUTE 0.29 <0.70 K/uL 03/21/2015 4:35 PM CD[address] [facility] - . NEAL BASOPHILS ABSOLUTE 0.02 <0.30 K/uL 03/21/2015 4:35 PM CDT [facility] LABORATORY SERVICES - . NEAL Blood 03/21/2015 4:12 PM CDT 03/21/2015 4:12 PM CDT Truman Streeter MD HEMATOLOGY ORDERABLE S [facility] LABORATORY SERVICES - [facility]# [id number] [address] [facility] [place] [address] * (ABNORMAL) BASIC METABOLIC PANEL (03/21/2015 4:12 PM CDT) SODIUM 138 136 - 145 mmol/L 03/21/2015 4:59 PM CDT [facility] POTASSIUM 4.0 3.5 - 5.0 mmol/L 03/21/2015 4:59 PM CDT [facility] CHLORIDE 96(L) 98 - 107 mmol/L 03/21/2015 4:59 PM CDT [facility] CO2 31(H) 22 - 29 mmol/L 03/21/2015 4:59 PM CDT [facility] - . NEAL CALCIUM 9.6 8.6 - 10.2 mg/dL 03/21/2015 4:59 PM CDT [facility] - . NEAL BUN 14 8 - 23 mg/dL 03/21/2015 4:59 PM CDT [facility] - . NEAL CREATININE 0.58 0.51 - 0.95 mg/dL 03/21/2015 4:59 PM CDT [facility] - . [facility] GLUCOSE 115(H) 79 - 99 mg/dL 03/21/2015 4:59 PM CDT [facility] - . NEAL GFR >60 >=60 mL/min/1.7 3 sq meter 03/21/2015 4:59 PM CDT [facility]AT[facility] Comment: eGFR has not been validated [...] 3 sq meter 03/21/2015 4:59 PM CDT [facility] ANION GAP 11 8 - 16 mmol/L 03/21/2015 4:59 PM CDT [facility] Blood 03/21/2015 4:12 PM CDT 03/21/2015 4:12 PM CDT Truman Streeter MD CHEMISTRY ORDERABLES [facility] i'mma [facility]# [id number] [address] [facility] [place] [address] * PROTIME-INR (03/21/2015 4:12 PM CDT) PROTIME 13.6 12.7 - 15.1 Seconds 03/21/2015 4:39 PM CDT [facility] INR 1.1 0.9 - 1.1 03/21/2015 4:39 PM CDT [facility] Comment: INR Therapeutic Range: Adult: ?? 2.0 - 3.0 for pulmonary embolism or prophylaxis against venous ?thrombosis or systemic embolization. 2.0 - 3.0 for patients with tissue heart valves. 2.5 - 3.5 for patients with mechanical heart valves or post [place]. Pediatric ??(12 years and under): 1.5 - 3.0 Although the target range in children is not well established, ?INR values of 1.5 - 3.0 are recommended for most patients. ?Higher values have been used in children with prosthetic ?cardiac valves and hereditary clotting disorders. [place] (<3 days) therapeutic ranges have not been established. Blood 03/21/2015 4:12 PM CDT 03/21/2015 4:12 PM CDT Truman Streeter MD HEMATOLOGY ORDERABLE S Performing Organization Address [facility] de Phone Number [facility] i'mma [facility]# [id number] [address] [place] [address] * PTT (03/21/2015 4:12 PM CDT) PTT 28.0 24.4 - 36.4 seconds 03/21/2015 4:40 PM CDT [facility] Comment: PTT Therapeutic Range: Heparin Level ? PTT (seconds) <0.10 units/mL ? <53 0.10 - 0.30 units/mL ? 53 - 67 0.30 - 0.70 units/mL* ?67 - 95* 0.70 - 1.00 units/mL ? 95 - 116 *corresponds to therapeutic range for unfractionated heparin Blood 03/21/2015 4:12 PM CDT 03/21/2015 4:12 PM CDT Truman Streeter MD HEMATOLOGY ORDERABLE S Performing Organization Address [facility] de Phone Number [facility] i'mma [facility]# [id number] [address] [place] [address] * EKG 12-LEAD (03/21/2015 3:36 PM CDT) 03/21/2015 3:36 PM CDT Narrative INTERFACE SYSTEM - 03/22/2015 8:35 AM CDT ? Stationary ECG Study ? [facility] ? Test Date: ?03/21/2015 3:36 PM Pat Name: ? ELENA SCHULTZ ?Department: ?? 7 ?Room: ? Gender: ? F ?Senior Process Engineer: ?? : ?[id number] ? Requested By: TRUMAN Almeida Order Number: [id number] ?Reading MD: ?? López Downey ? Measurements Intervals ?[place] ? Rate: ? 88 ? P: ?53 OR: ? 153 ?QRS: ?29 QRSD: ? 102 ?T: ?74 QT: ? 364 ? QTc: ?442 ? Interpretive Statements ? SINUS RHYTHM WITH SINUS ARRHYTHMIA IN A PATTERN OF BIGEMINY ABNORMAL RHYTHM ECG Electronically Signed On 03-22-2015 8:35:39 CDT by López Downey Procedure Note Provider, Mega Pacheco MD - 12/16/2021 Stationary ECG Study [facility] Test Date: 03/21/2015 3:36 PM Pat Name: ELENA SCHULTZ Department: 7 Room: Gender: F Senior Process Engineer: : [id number] Requested By: TRUMAN Almeida Order Number: [id number] Reading MD: López Downey Measurements Intervals [place] Rate: 88 P: 53 OR: 153 QRS: 29 QRSD: 102 T: 74 QT: 364 QTc: 442 Interpretive Statements SINUS RHYTHM WITH SINUS ARRHYTHMIA IN A PATTERN OF BIGEMINY ABNORMAL RHYTHM ECG Electronically Signed On 03-22-2015 8:35:39 CDT by López Downey Truman Streeter MD ECG ORDERABLES Performing Organization Address City/State/[facility] Co de Phone Number INTERFACE SYSTEM Refer to clinic/hospital department * URINE CULTURE (03/21/2015 3:31 PM CDT) CULTURE No growth at 24 hours ANGELA METHOD AEROBIC CULTURE 03/22/2015 3:11 PM CDT [facility] Urine, clean catch URINE SPECIMEN OBTAINED BY CLEAN CATCH PROCEDURE / Unknown Collection / Unknown 03/21/2015 3:31 PM CDT 03/21/2015 4:11 PM CDT Truman Streeter MD MICROBIOLOGY - GENER AL ORDERABLES [facility] LABORATORY SERVICES [facility] CLIA# [id number] [address] [facility] [facility] [place] [address] * (ABNORMAL) URINALYSIS WITH REFLEX CULTURE (03/21/2015 3:31 PM CDT) COLOR UA Yellow Pale to Dark Yellow 03/21/2015 4:55 PM CDT [facility] CLARITY UA Clear Clear 03/21/2015 4:55 PM T [facility] - [facility] SPECIFIC GRAVITY UA 1.004 1.003 - 1.035 03/21/2015 4:55 PM T [facility] - [facility] PH UA 6.0 5.0 - 8.0 03/21/2015 4:55 PM T [facility] LEUKOCYTE ESTERASE UA 1+(A) Negative 03/21/2015 4:55 PM T [facility] - [facility] NITRITE UA Negative Negative 03/21/2015 4:55 PM CDT [facility] - [facility] PROTEIN UA Negative Negative 03/21/2015 4:55 PM CDT [facility] GLUCOSE UA Negative Negative 03/21/2015 4:55 PM CDT [facility] KETONES UA Negative Negative 03/21/2015 4:55 PM T [facility] UROBILINOGEN UA Normal <2.0 mg/dL 03/21/2015 4:55 PM CDT [facility] BILIRUBIN UA Negative Negative 03/21/2015 4:55 PM CDT [facility] BLOOD UA Negative Negative 03/21/2015 4:55 PM CDT [facility] LABORATORY SERVICES - [facility] WBC UA 6-10(A) 0 - 2 /hpf 03/21/2015 4:55 PM CDT [facility]ATORY SERVICES - [facility] RBC UA 0-2 0 - 2 /hpf 03/21/2015 4:55 PM CDT [facility]ATORY SERVICES - [facility] BACTERIA UA Negative Negative /hpf 03/21/2015 4:55 PM CDT [facility] LABORATORY [facility] Urine, clean catch Collection / Unknown 03/21/2015 3:31 PM CDT 03/21/2015 4:11 PM CDT Narrative [facility]ATORY SERVICES - [facility] - 03/21/2015 4:55 PM CDT Based on results, a urine culture has been reflexed. Truman Streeter MD URINE ORDERABLES [facility] LABORATORY [facility]# [id number] [address] [facility] [place] [address] documented in this encounter Visit Diagnoses Not on filedocumented in this encounter Care Teams Claim Investigator Relationship Specialty Start Date End Date Jareth Lopez MD [address] [place] [address] PCP - General Family Practice 04/11/13 documented as of this encounter
--- OUTSIDE RECORDS SUMMARY | 2024-09-27 23:27 | XMS_ITS | Encounter Summary ---
Author Organization [facility] Address [address] [place] [address] Care Team Providers Care Band Machine Operator Name Role Phone Jareth Lopez MD Primary Care Provider Reason for Visit * Auth/Cert - Closed Specialty Diagnoses / Procedures Referred By Contac t Referred To Contact General Surgery Diagnoses HERNIATED LUMBAR DISC Procedures SPINAL MICRODISCECTOMY MINIMALLY INVASIVE [facility] [address] [place] [address] Referral ID Status Reason Start Date Expiration Date Visits Re quested Visits Authorized [id number] Closed 1 1 Encounter Details Date Type Department Care Team (Latest Contact Info) Description 03/29/2015 6:53 AM CDT - 03/29/2015 2:31 PM CDT Hospital Encounter [facility] [address] [place] [address] Truman Streeter MD [address] [place] [address] Discharge Disposition: Home or Self Care [...] the BRAT diet (Bananas, Rice, Applesauce and [place]). Pain Medication given at . Next dose [...] or come to the Emergency Room at [facility] ([phone]) or the nearest Emergency Room. In an [...] by mouth daily. L GASSERI/B BIFIDUM/B LONGUM ([facility]) Take by mouth. HYDROcodone-acetaminophen [...] Streeter MD - 03/29/2015 8:15 PM CDT [place], [place] [address] Operative Report CSN: [id number] DATE OF SERVICE: 03/29/2015 SURGEON Truman Streeter MD PREOPERATIVE DIAGNOSIS Right L5-S1 disk herniation with radiculopathy. POSTOPERATIVE DIAGNOSIS Right L5-S1 disk herniation with radiculopathy. OPERATION NAME 1. Right L5-S1 microdiskectomy and foraminotomy. 2. Interpretation of intraoperative fluoroscopy. 3. Utilization of intraoperative microsurgical technique. ACCOUNT SERVICES COORDINATOR YANCY Benjamin ANESTHESIA Endotracheal. COMPLICATION None. ESTIMATED [...] aspect of the set was drilled with Dashlane high-speed air drill. The ligamentum flavum was removed exposing the thecal sac and the exiting nerve root.These were retracted medially, and there was a large free disk fragment and clear annular tear. Using the [place] and down pushing curettes, several large free [...] the duration of the procedure. KE:MEDQ DID: [id number] Dictated by: Truman Streeter MD * Anesthesia [...] - 03/29/2015 11:17 AM CDT Dictation #: [id number] * Operative Report - Truman Streeter MD - 03/29/2015 11:16 AM CDT Brief Post-Operative Note Pre-Operative Diagnosis: Right L5-S1 disc herniation with radiculopathy Post-Operative Diagnosis: Right L5-S1 disc herniation with radiculopathy Operation: Right L5-S1 microdiscectomy Surgeon: Truman Streeter MD, FACS Diesel Powerplant Mechanic Helper: YANCY Benjamin Anesthetic: General Endotracheal Complications:None EBL: Minimal Truman Streeter MD, FACS Neurosurgery documented in this encounter Miscellaneous Notes * Care Plan - Clau Guzmán RN - 03/29/2015 1:35 PM CDT Potential for pain related to surgical/procedural intervention Interventions: Assess level of pain/comfort utilizing verbal/nonverbal pain scales; assess culturalor sikhism indicators attached to pain; administer pain medications [...] pain/comfort utilizing verbal/nonverbal pain scales; assess culturalor sikhism indicators attached to pain; administer pain medications [...] AM CDT HERNIATED LUMBAR DISC Case Notes [facility], # [id number], CPT: 40336 POC GLUCOSE Routine 03/29/2015 7:32 AM CDT [...] - 99 mg/dL 03/29/2015 7:35 AM CDT [facility] Blood, capillary 03/29/2015 7:32 AM CDT 03/29/2015 7:35 AM CDT Truman Streeter MD POINT OF CARE TESTIN G [facility]# [id number] [address] [place] [address] documented in this encounter Visit Diagnoses Not [...] MD) documented in this encounter Care Teams Band Machine Operator Relationship Specialty Start Date End Date Jareth Lopez MD [address] [place] [address] PCP - General Family Practice 04/11/13 documented as of this encounter
--- OUTSIDE RECORDS SUMMARY | 2024-09-27 23:27 | XMS_ITS | Encounter Summary ---
Author Organization [facility] Address [address] [place] [address] Care Team Providers Care Historic Sites Supervisor Name Role Phone Jareth Lopez MD Primary Care Provider [phone] Reason for Referral * Outpatient Services (Routine) - Closed Specialty Diagnoses / Procedures Referred By Contac t Referred To Contact CT Scan Diagnoses Pancreatic adenocarcinoma Procedures CT ABDOMEN PELVIS W CONTRAST Andi Marley MD [address] [place] [address] Referral ID Status Reason Start Date Expiration Date V isits Requested Visits Authorized [id number] Closed STL CTS 11/26/2015 12/25/2015 1 1 O ASSISTANT Reason for Visit * Reason Comments Follow Up spot on lung Encounter Details Date Type Department Care Team (Latest Contact Info) Description 09/26/2015 11:30 AM ORTHO ASSISTANT Office Visit [facility] Surgical Spec [place] [id number] [place] [address] Andi Marley MD [address] [place] [address] Pancreatic adenocarcinoma (Primary Dx) Social [...] Comments Blood Pressure 119/68 09/26/2015 10:41 AM ORTHO ASSISTANT ri ght arm Pulse 80 09/26/2015 10:41 AM ORTHO ASSISTANT Temperature - - Respiratory Rate - - Oxygen Saturation - - Inhaled Oxygen Concentration - - Weight 68.9 kg (152 lb) 09/26/2015 10:41 AM ORTHO ASSISTANT Height 160 cm (5' 3 ) 09/26/2015 10:41 AM ORTHO ASSISTANT Body Mass Index 26.93 09/26/2015 10:41 AM ORTHO ASSISTANT documented in this encounter Progress Notes * [...] [facility] ??? Hx lumbar diskectomy Left 03/29/2015 SPINAL MICRODISCECTOMY MINIMALLY INVASIVE - LEFT L5-S1 M.I. DISCECTOMY performed by Truman Streeter MD at [facility] (Not in a hospital admission) Allergies [...] back in December for a6 month check O ASSISTANT documented in this encounter Plan of Treatment [...] unspecified documented in this encounter Care Teams Historic Sites Supervisor Relationship Specialty Start Date End Date Jareth Lopez MD [address] [place] [phone] PCP - General Family Practice 04/11/13 documented as of this encounter
--- OUTSIDE RECORDS SUMMARY | 2024-09-27 23:27 | XMS_ITS | Encounter Summary ---
Author Organization [facility] Address [address] [place] [address] Care Team Providers Care Sergeant Missile Crewman Name Role Phone Jareth Lopez MD Primary Care Provider Reason for Referral * Outpatient Services (Routine) - Closed Specialty Diagnoses / Procedures Referred By Contac t Referred To Contact CT Scan Diagnoses Pancreatic adenocarcinoma Procedures CT ABDOMEN PELVIS W CONTRAST [facility] Surgical Spec [place] [address] [place] [address] Referral ID Status Reason Start Date Expiration Date V isits Requested Visits Authorized [id number] Closed L CTS 06/12/2014 07/13/2014 1 1 Encounter Details Date Type Department Care Team (Late st Contact Info) Description 06/12/[address] [facility] Surgical Spec [place] [address] [place] [address] Judy Suh RN Pancreatic adenocarcinoma (Primary Dx) Social History Tobacco [...] other acute abnormality. Dictated from Location 1, [facility] ? Narrative 07/03/2014 10:55 AM CDT [...] other acute abnormality. Dictated from Location 1, [facility] Andi Marley MD CT ORDERABLES documented in this encounter Visit Diagnoses Diagnosis Pancreatic adenocarcinoma- Primary Malignant neoplasm of pancreas, part unspecified Pancreatic adenocarcinoma Malignant neoplasm of pancreas, part unspecified documented in this encounter Care Teams Sergeant Missile Crewman Relationship Specialty Start Date End Date Jareth Lopez MD [address] [place] [address] PCP - General Family Practice 04/11/13 documented as of this encounter
--- OUTSIDE RECORDS SUMMARY | 2024-09-27 23:27 | XMS_ITS | Encounter Summary ---
Author Organization [facility] Address [address] [place] [address] Care Team Providers Care Qualitative Executive Researcher Name Role Phone Jareth Lopez MD Primary Care Provider Reason for Visit * Reason Onset Date Comments Nausea 12/14/2013 Encounter Details Date Type Department Care Team (Late st Contact Info) Description 12/14/2013 Telephone [facility] Surgical Spec [place] [address] [place] [address] Judy Suh, [place] Nausea Social [...] on filedocumented in this encounter Care Teams Qualitative Executive Researcher Relationship Specialty Start Date End Date Jareth Lopez MD [address] [place] [address] PCP - General Family Practice 04/11/13 documented as of this encounter
--- OUTSIDE RECORDS SUMMARY | 2024-09-27 23:27 | XMS_ITS | Encounter Summary ---
Author Organization [facility] Address [address] [place] [address] Care Team Providers Care High Frequency Mill Operator Name Role Phone Jareth Lopez MD Primary Care Provider [phone] Reason for Referral * Outpatient Services (Routine) - Closed Specialty Diagnoses / Procedures Referred By Contac t Referred To Contact CT Scan Diagnoses Nodule of left lung Procedures CT CHEST W CONTRAST Andi Marley MD [address] [place] [address] Referral ID Status Reason Start Date Expiration Date V isits Requested Visits Authorized [id number] Closed STL CTS 09/05/2015 10/04/2015 1 1 Reason for Visit * Reason Onset Date Comments Other 06/26/[address] Chest 3 mo [facility] Encounter Details Date Type Department Care Team (Late st Contact Info) Description 06/26/2015 Patient Outreach [facility] Surgical Spec [place] [address] [place] [address] Judy Suh, RN Other (fu [...] CT CHEST W CONTRAST (09/26/2015 8:45 AM CANDY MAKER) Anatomical Region Laterality Modality Chest Computed Tomogra phy 09/26/2015 8:36 AM CANDY MAKER Impressions 09/30/2015 7:42 AM CANDY MAKER IMPRESSION: 1. The previous described left lower lobe nodule is unchanged. With the dedicated chest imaging, several additional groundglass nodules are identified, primarily within the left lower lobe. The findings are most suggestive of an infectious or inflammatory process, but nonetheless continued followup is recommended. 2. Additional findings as above. Dictated from Location 1: [facility] Narrative 09/30/2015 7:[address] CHEST WITH INTRAVENOUS CONTRAST DATE: September [...] findings as above. Dictated from Location 1: [facility] Andi Marley MD CT ORDERABLES documented in this encounter Visit Diagnoses Diagnosis Nodule of left lung- Primary Solitary pulmonary nodule Nodule of left lung Solitary pulmonary nodule documented in this encounter Care Teams High Frequency Mill Operator Relationship Specialty Start Date End Date Jareth Lopez MD [address] [place] [address] PCP - General Family Practice 04/11/13 documented as of this encounter
--- OUTSIDE RECORDS SUMMARY | 2024-09-27 23:27 | XMS_ITS | Encounter Summary ---
Author Organization [facility] Address [address] [place] [address] Care Team Providers Care Manager Process Name Role Phone Jareth Lopez MD Primary Care Provider Reason for Referral * Outpatient Services (Routine) - Closed Specialty Diagnoses / Procedures Referred By Contac t Referred To Contact CT Scan Diagnoses Nodule of left lung Procedures CT CHEST W CONTRAST Andi Marley MD [address] [place] [phone] Referral ID Status Reason Start Date Expiration Date V isits Requested Visits Authorized [id number] Closed STL CTS 09/05/2015 10/04/2015 1 1 GRINDER Reason for Visit * Outpatient Services (Routine) - Closed Specialty Diagnoses / Procedures Referred By Contac bernie Referred To Contact CT Scan Diagnoses Nodule of left lung Procedures CT CHEST W CONTRAST Andi Marley MD [address] [place] [phone] Referral ID Status Reason Start Date Expiration Date V isits Requested Visits Authorized [id number] Closed STL CTS 09/05/2015 10/04/2015 1 1 Encounter Details Date Type Department Care Team (Latest Contact Info) Description 09/26/2015 8:26 AM RAIL GRINDER - 09/26/2015 11:59 PM RAIL GRINDER Hospital Encounter [facility] CT Scan [address] [place] [address] Andi Marley MD [address] [facility] [address] [place] [address] Discharge Disposition: Home or Self [...] by mouth daily. L GASSERI/B BIFIDUM/B LONGUM ([employer] ORAL) Take by mouth. documented as of this encounter Miscellaneous Notes * Treatment Plan - Edmond Manuel, RT - 09/26/2015 8:35 AM CST Images from the original note were not included. GRINDER documented in this encounter Plan of Treatment Not on file documented as of this encounter Procedures Procedure Name Priority Date/Time Associated Diagnosis Comments CT CHEST W CONTRAST Routine 09/26/2015 8 :45 AM RAIL GRINDER Nodule of left lung POC CREATININE Routine 09/26/2015 8:35 AM RAIL GRINDER documented in this encounter Results * CT CHEST W CONTRAST (09/26/2015 8:45 AM RAIL GRINDER) Anatomical Region Laterality Modality Chest Computed Tomogra phy 09/26/2015 8:36 AM RAIL GRINDER Impressions 09/30/2015 7:42 AM RAIL GRINDER IMPRESSION: 1. The previous described left lower lobe nodule is unchanged. With the dedicated chest imaging, several additional groundglass nodules are identified, primarily within the left lower lobe. The findings are most suggestive of an infectious or inflammatory process, but nonetheless continued followup is recommended. 2. Additional findings as above. Dictated from Location 1: [facility] Narrative 09/30/2015 7:[address] CHEST WITH INTRAVENOUS CONTRAST DATE: September [...] findings as above. Dictated from Location 1: [facility] Andi Marley MD CT ORDERABLES * POC CREATININE (09/26/2015 8:35 AM RAIL GRINDER) CREATININE POC 0.70 0.50 - 1.00 mg/dL 09/26/2015 8:40 AM RAIL GRINDER [facility] GFR >60 >=60 mL/min/1.7 3 sq meter 09/26/2015 8:40 AM RAIL GRINDER [facility] Comment: eGFR has not been validated [...] mL/min/1.7 3 sq meter 09/26/2015 8:40 AM RAIL GRINDER [facility] Blood, capillary 09/26/2015 8:35 AM RAIL GRINDER 09/26/2015 8:40 AM RAIL GRINDER Andi Marley MD POINT OF CARE TESTIN [facility]# [id number] [facility] [place] [place] [id number] documented in this encounter Visit Diagnoses Diagnosis [...] 09/26/15 at 0901 Given 09/26/2015 9:01 AM RAIL GRINDER 125 mL documented in this encounter Care Teams Manager Process Relationship Specialty Start Date End Date Jareth Lopez MD [address] [place] [address] PCP - General Family Practice 04/11/13 documented as of this encounter
--- OUTSIDE RECORDS SUMMARY | 2024-09-27 23:27 | XMS_ITS | Encounter Summary ---
Author Organization [facility] Address [address] [place] [address] Care Team Providers Care Monumental Stonemason Name Role Phone Jareth Lopez MD Primary Care Provider Reason for Visit * Auth/Cert Specialty Diagnoses / Procedures Referred By Contac t Referred To Contact General Surgery Diagnoses Ventral incisional hernia Procedures HERNIA VENTRAL REPAIR [facility] Or [address] [place] [address] Referral ID Status Reason Start Date Expiration Date Visits Re quested Visits Authorized [id number] 1 1 Encounter Details Date Type Department Care Team (Late st Contact Info) Description 02/07/2016 11:15 AM CDT - 02/07/2016 12:45 PM CDT Surgery [facility] Operating Room [address] [place] [address] Andi Marley MD [address] [facility] [address] [place] [address] HERNIA VENTRAL INCISIONAL REPAIR Surgery [...] not uncommon. The patient may take any rzzy-ygh-pjumkvc medication(s) that have worked previously to correct [...] to call the office for postoperative appointment ([phone]). The patient will need to be seen [...] or come to the Emergency Room at [facility] ([phone]) or the nearest Emergency Room. In an [...] by mouth daily. L GASSERI/B BIFIDUM/B LONGUM ([employer] ORAL) Take by mouth. cyclobenzaprine (FLEXERIL) 10 [...] WHIPPLE?? performed by Andi Marley MD at [facility] OR [facility]? Hx lumbar diskectomy?? Left?? 03/29/2015? SPINAL MICRODISCECTOMY MINIMALLY INVASIVE - LEFT L5-S1 M.I. DISCECTOMY performed by Truman Streeter MD at [facility] OR [facility]? Prescriptions Prior to Admission (Not in [...] Marley MD - 02/07/2016 11:04 PM CDT [place], [place] [address] Operative Report CSN: [id number] DATE OF SERVICE: 02/07/2016 SURGEON Andi Marley [...] recovery room in stable condition. RLN:MEDQ DID: [id number] Dictated by: Andi Marley M.D. * Amirah-OP - Мария Alatorre RN - 02/07/2016 2:01 PM CDT Patient instructed on use of incentive spirometer. * Brief Op Note - Andi Marley MD - 02/07/2016 12:42 PM CDT Brief Postoperative Note Elena Fernández [id number] Pre-operative Diagnosis: Ventral incisional hernia [K43.2] Post-operative [...] Implant Name Type Inv. Item Serial No. Subwarehouse Supervisor Lot No. LRB No. Used Action MESH PROCEED MED PVPM - [id number] Mesh MESH PROCEED MED PVPM pvpm [employer] [id number] N/A1 Implanted Estimated Blood Loss: [address] Andi Marley MD * Amirah-OP - Lorna Yepez RN - 02/07/2016 9:31 AM CDT glucoscan 142 documented in this encounter Miscellaneous Notes * Care Plan - Renea Cary RN - 02/07/2016 3:57 PM CDT Potential for pain related to surgical/procedural intervention Interventions: Assess level of pain/comfort utilizing verbal/nonverbal pain scales; assess culturalor taoism indicators attached to pain; administer pain medications [...] Discharge instructions explained to patient and responsible republican understanding verified. * Care Ksenia - Мария Alatorre RN - 02/07/2016 12:52 PM CDT Potential for pain related to surgical/procedural intervention Interventions: Assess level of pain/comfort utilizing verbal/nonverbal pain scales; assess culturalor taoism indicators attached to pain; administer pain medications [...] - 99 mg/dL 02/07/2016 1:10 PM CDT [facility] Whole blood specimen (specimen) 02/07/2016 1:07 PM CDT 02/07/2016 1:10 PM CDT Andi Marley MD POINT OF CARE GREER Carrasco Performing Organization Address [facility] Co de Phone Number [facility]# [id number] [address] [place] [address] * PATHOLOGY (02/07/2016 12:20 PM CDT) CASE REPORT Surgical Pathology Report ? Case: [id number] ? Authorizing Provider: ??Andi Marley MD ? Collected: ? 02/07/2016 12:20 PM ? Ordering Location: ? [facility] ?Received: ?02/07/2016 12:48 PM ? Operating Room ? Pathologist: ? Isai Olson MD ? Specimen: ?Skin, abdominal scar ? 02/10/2016 11:35 AM [facility] FINAL DIAGNOSIS SKIN, ABDOMEN, EXCISION: - DERMAL SCAR AND KELOID. 02/10/2016 11:35 AM [facility] IMEN DESCRIPTION Abdominal scar. 02/10/2016 11:35 AM [facility] OPERATIVE PROCEDURE Hernia ventral incisional repair. 02/10/2016 11:35 AM [facility] CLINICAL INFORMATION Ventral incisional hernia, K43.2. 02/10/2016 11:35 AM [facility] GROSS DESCRIPTION Received in a single container labeled Elena Fernández, abdominal scar is a 20.5 x 1.7 x 1.9-cm unoriented excision of mackay skin. The skin surface is remarkable for a 20.5-cm long healed linear scar. No additional lesions are identified. Computer Instructor sections are submitted in cassette A1. MARTIR/silvia 02/10/2016 11:35 AM [facility] MICROSCOPIC DESCRIPTION The slide is labeled [id number] and Elena Fernández. The abdominal excision demonstrates dermal scar with lobulated collections of increased number of fibroblasts, blood vessels, and entrapped thick, eosinophilic, keloidal collagen bundles. 02/10/2016 11:35 AM [facility] COMMENT Special stain and/or immunohistochemical results are interpreted with controls that demonstrate appropriate staining reactions. Note on use of immunocytochemistry reagents: This test was developed and its performance characteristic determined by [facility], Department of Laboratory Medicine. It [...] WF, WB and WH are performed by [address], [address]. All other case types are performed by [address], [address]. 02/10/2016 11:35 AM [facility] Tissue TISSUE SPECIMEN FROM SKIN / Unknown 02/07/2016 12:20 PM CDT 02/07/2016 12:48 PM CDT Andi Marley MD PATHOLOGY/CYTOLOGY O RDERABLES Performing Organization Address [facility]/ZIP Co de Phone Number [facility] First Opinion [facility]# [id number] [address] [place] [address] * (ABNORMAL) POC GLUCOSE (02/07/2016 9:29 AM CDT) GLUCOSE POC 142(H) 79 - 99 mg/dL 02/07/2016 9:40 AM CDT [facility] Whole blood specimen (specimen) 02/07/2016 9:29 AM CDT 02/07/2016 9:40 AM CDT Adni Marley MD POINT OF CARE TESTIN G Performing Organization Address [facility]/ZIP Co de Phone Number [facility] [employer] [facility]# [id number] [address] [place] [address] documented in this encounter Visit Diagnoses Diagnosis [...] Pre-op documented in this encounter Care Teams Monumental Stonemason Relationship Specialty Start Date End Date Jareth Lopez MD [address] [place] [address] PCP - General Family Practice 04/11/13 documented as of this encounter
--- OUTSIDE RECORDS SUMMARY | 2024-09-27 23:27 | XMS_ITS | Encounter Summary ---
Author Organization [facility] Address [address] [place] [address] Care Team Providers Care Lock Master Name Role Phone Jareth Lopez MD Primary Care Provider Reason for Referral * Outpatient Services (Urgent) - Closed Specialty Diagnoses / Procedures Referred By Armandoac bernie Referred To Contact CT Scan Diagnoses Pancreas cancer Vomiting bile Procedures CT ABDOMEN PELVIS W CONTRAST Andi Marley MD [address] [place] [address] Referral ID Status Reason Start Date Expiration Date V isits Requested Visits Authorized [id number] Closed STL CTS 02/07/2014 03/08/2014 1 1 Reason for Visit * Outpatient Services (Urgent) - Closed Specialty Diagnoses / Procedures Referred By Contac bernie Referred To Contact CT Scan Diagnoses Pancreas cancer Vomiting bile Procedures CT ABDOMEN PELVIS W CONTRAST Andi Marley MD [address] [place] [phone] Referral ID Status Reason Start Date Expiration Date V isits Requested Visits Authorized [id number] Closed STL CTS 02/07/2014 03/08/2014 1 1 Encounter Details Date Type Department Care Team (Latest Contact Info) Description 02/07/2014 1:58 PM CDT - 02/07/2014 11:59 PM CDT Hospital Encounter [facility] CT Scan [address] [place] [address] Andi Marley MD [address] [place] [address] Discharge Disposition: Home or Self [...] by mouth daily. L GASSERI/B BIFIDUM/B LONGUM ([employer] HEALTH ORAL) Take by mouth. cyclobenzaprine (FLEXERIL) [...] IMAGING SERVICES MEDICATION and FLUSH PROTOCOL [facility] ORDERS ARE ENTERED ???PER PROTOCOL?? [...] _10/2013 IMAGING SERVICES MEDICATION and FLUSH PROTOCOL [facility] ORDERS ARE ENTERED ???PER PROTOCOL?? [...] _10/2013 IMAGING SERVICES MEDICATION and FLUSH PROTOCOL [facility] ORDERS ARE ENTERED ???PER PROTOCOL?? [...] Date: IMAGING SERVICES MEDICATION and FLUSH PROTOCOL [facility] ORDERS ARE ENTERED ???PER PROTOCOL?? [...] incidental findings as discussed above. Dictated from [facility] 02/07/2014 4:[address] abdomen [...] incidental findings as discussed above. Dictated from [facility] Andi Marley MD CT ORDERABLES documented in [...] mL documented in this encounter Care Teams Lock Master Relationship Specialty Start Date End Date Jareth Lopez MD [address] [place] [phone] PCP - General Family Practice 04/11/13 documented as of this encounter
--- OUTSIDE RECORDS SUMMARY | 2024-09-27 23:27 | XMS_ITS | Encounter Summary ---
Author Organization [facility] Address [address] [place] [address] Care Team Providers Care Coal And Ash Supervisor Name Role Phone Jareth Lopez MD Primary Care Provider Reason for Visit * Auth/Cert Specialty Diagnoses / Procedures Referred By Contac t Referred To Contact General Surgery Diagnoses Ventral incisional hernia Procedures HERNIA VENTRAL REPAIR [facility] [address] [place] [address] Referral ID Status Reason Start Date Expiration Date Visits Re quested Visits Authorized [id number] 1 1 Encounter Details Date Type Department Care Team (Late st Contact Info) Description 02/07/2016 11:35 AM CDT Anesthesia Event [facility] Operating Room [address] [place] [address] Jamar Syed MD [address] [place] [address] Michaela Ryan CRNA [address] [place] [address] Anesthesia Record Procedure Summary Procedure [...] Continuous waveform capnography 02/07/16810 by Michaela Ryan, PARADI OPERATOR 02/07/16810 by Brian Chaves AA-C Peripheral IV [...] ml Output 15 ml Net 685 ml Jennifer Hooper MD 02/07/2016 1:41 PM Jennifer Hooper [...] discussed with Patient. Plan discussed with Nurse Siding Applicator. Pre-Anesthesia Evaluation - Long Form 02/07/2016 9:42 AM Name: Elena Fernández Age: 65 y.o. Sex: female CSN: [id number] Allergies Allergen Reactions ??? Adhesive Other (See [...] daily. 01/31/2016 ??? L GASSERI/B BIFIDUM/B LONGUM ([employer] HEALTH ORAL) Take by mouth. Unknown ??? [...] mcg IV Post-Proc q 3 min PRN Jamra Syed MD ??? fentaNYL PF (SUBLIMAZE) 50 [...] a child ??? Temporomandibular joint disorder wears night time babysitter ??? At risk for obstructive sleep apnea [...] at [facility] OR [facility] ??? Hx lumbar diskectomy Left 03/29/2015 SPINAL MICRODISCECTOMY MINIMALLY INVASIVE - LEFT L5-S1 M.I. DISCECTOMY performed by Truman Streeter MD at [facility] OR [facility] History Substance Use Topics ??? Smoking status: [...] mg documented in this encounter Care Teams Coal And Ash Supervisor Relationship Specialty Start Date End Date Jareth Lopez MD [address] [place] [phone] PCP - General Family Practice 04/11/13 documented as of this encounter
--- OUTSIDE RECORDS SUMMARY | 2024-09-27 23:27 | XMS_ITS | Encounter Summary ---
Author Organization [facility] Address [address] [place] [address] Care Team Providers Care Palm Gatherer Name Role Phone Jareth Lopez MD Primary Care Provider [phone] Encounter Details Date Type Department Care Team (Late st Contact Info) Description 12/27/2015 Orders Only [facility] Surgical Spec [place] [address] [place] [address] Andi Marley MD [address] [place] [address] Social History Tobacco Use Types [...] on filedocumented in this encounter Care Teams Palm Gatherer Relationship Specialty Start Date End Date Jareth Lopez MD [address] [place] [address] PCP - General Family Practice 04/11/13 documented as of this encounter
--- OUTSIDE RECORDS SUMMARY | 2024-09-27 23:27 | XMS_ITS | Encounter Summary ---
Author Organization [facility] Address [address] [place] [address] Care Team Providers Care Acid Tank Liner Name Role Phone Jareth Lopez MD Primary Care Provider Reason for Visit * Reason Comments Follow Up Encounter Details Date Type Department Care Team (Latest Contact Info) Description 06/25/2015 1:15 PM CDT Office Visit [facility] Surgical Spec [place] [address] [place] [address] Andi Marley MD [address] [place] [address] Pancreatic adenocarcinoma (Primary Dx) Social [...] Sign Reading Time Taken Comments Blood Pressure 143/70 06/25/2015 1:02 PM CDT rig ht wrist Pulse 88 06/25/2015 1:02 PM CDT Temperature - - Respiratory Rate 20 06/25/2015 1:02 PM CDT Oxygen Saturation - - Inhaled Oxygen Concentration - - Weight 68.9 kg (152 lb) 06/25/2015 1:02 PM CDT Height 160 cm (5' 3 ) 06/25/2015 1:02 PM CDT Body Mass Index 26.93 06/25/2015 1:02 PM CDT documented in this encounter Progress Notes * Andi Marley MD - 06/28/2015 9:29 AM CDT Subjective: 64-year-old female who follows up the year and a half after her 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 There is no lymph nodemetastasis at that time. She has had a spinal disc surgery since her last office visit. She has notlost any further weight. She still is a small bulge at the middle of her transverse incision consistent with a hernia which is not causing her any problems. She has no change in bowel or bladder habits as her bowel movements are normal color and sinking. She has no nausea or vomiting. She has no abdominal pain Patient Active Problem List Diagnosis Date Noted [...] WHIPPLE performed by Andi Marley MD at [facility] OR [facility] ??? Hx lumbar diskectomy Left 03/29/2015 SPINAL MICRODISCECTOMY MINIMALLY INVASIVE - LEFT L5-S1 M.I. DISCECTOMY performed by Truman Streeter MD at [facility] OR [facility] (Not in a hospital admission) Allergies [...] major depressive episodes requiring hospitalization Objective: BP 143/70 mmHg Pulse 88 Resp 20 Ht 5' 3 (1.6 m) Wt 152 [...] Bowel sounds normal. No masses, No organomegaly.small ventral hernia at the middle portion of her transverse incision which is reducible Extremities: Extremities normal, atraumatic, no cyanosis or edema. Pulses: 2+ and symmetric all extremities. Skin: Skin color, texture, turgor normal. No rashes or lesions. Lymph nodes: Cervical, supraclavicular, and axillary nodes normal. Neurologic: CNII-XII intact. Normal strength, sensation and reflexes throughout. DATA REVIEW CT scan of the abdomen and pelvis was reviewed by myself which shows a questionable new lesion in the liver being 1 cm which I think I can make out a previous exam from 6 months ago. There is also a new 4 mm nodule in her lung, Assessment: 64-year-old female who's doing well 18 months status post her Whipple operation for an incidental pancreatic adenocarcinoma Plan: Repeat CT scan of the chest in 3 months to be sure no progression of a 4 mm nodule. I think this will also include the top portion of her liver and we'll be able to assess if liver lesion has changedin size at that time. See me back in 3 months if the scan has documented change otherwise I'll see her back in 6 months documented in this encounter Plan of Treatment Not on file documented as of this encounter Visit Diagnoses Diagnosis Pancreatic adenocarcinoma- Primary Malignant neoplasm of pancreas, part unspecified documented in this encounter Care Teams Acid Tank Liner Relationship Specialty Start Date End Date Jareth Lopez MD [address] [place] [phone] PCP - General Family Practice 04/11/13 documented as of this encounter
--- OUTSIDE RECORDS SUMMARY | 2024-09-27 23:27 | XMS_ITS | Encounter Summary ---
Author Organization [facility] Address [address] [place] [address] Care Team Providers Care Wood Floor Layer Name Role Phone Jareth Lopez MD Primary Care Provider [phone] Reason for Visit * Auth/Cert - Closed Specialty Diagnoses / Procedures Referred By Contac t Referred To Contact General Surgery Diagnoses HERNIATED LUMBAR DISC Procedures SPINAL MICRODISCECTOMY MINIMALLY INVASIVE [facility] Or [address] [place] [address] Referral ID Status Reason Start Date Expiration Date Visits Re quested Visits Authorized [id number] Closed 1 1 Encounter Details Date Type Department Care Team (Late st Contact Info) Description 03/29/2015 10:08 AM CDT Anesthesia Event [facility] Operating Room [address] [place] [address] Celia Rowell MD [address] [place] [address] [place] [phone] Anesthesia Record Procedure Summary Procedure Name [...] Patient and Spouse. Plan discussed with Anesthesiologist Child Protective Investigator. Post-op Pain Control Plan to use IV [...] mg documented in this encounter Care Teams Wood Floor Layer Relationship Specialty Start Date End Date Jareth Lopez MD [address] [place] [id number] PCP - General Family Practice 04/11/13 documented as of this encounter
--- OUTSIDE RECORDS SUMMARY | 2024-09-27 23:27 | XMS_ITS | Encounter Summary ---
Author Organization [facility] Address [address] [place] [address] Care Team Providers [facility] [employer] Name Role Phone Jareth Lopez MD Primary Care Provider [phone] Reason for Visit * Auth/Cert - Closed Specialty Diagnoses / Procedures Referred By Contac t Referred To Contact General Surgery Procedures [facility] Or [address] [place] [address] Referral ID Status Reason Start Date Expiration Date Visits Re quested Visits Authorized [id number] Closed 1 1 Encounter Details Date Type Department Care Team (Latest Contact Info) Description 12/04/2013 4:51 AM ANGLE ROLL OPERATOR - 12/10/2013 10:09 AM CDT Hospital Encounter [facility] Trauma and Surgery [address] [place] [address] Ann Griggs MD [address] [facility] [address] [place] [address] Hypertension Discharge Disposition: Home or [...] 88.5 kg (195 lb) 12/06/2013 4:00 AM ANGLE ROLL OPERATOR Height 163.8 cm (5' 4.5 ) 11/27/2013 3:20 PM ANGLE ROLL OPERATOR Body Mass Index 32.95 11/27/2013 3:20 PM ANGLE ROLL OPERATOR documented in this encounter Discharge Summaries [...] Attending Physician: Dr. Ann Griggs Procedures: Procedure(s): [facility] Course: underwent coral and was d/c'd POD 6 Discharge Condition: [...] to home 2. Follow-up two weeks Office- [phone] 3. May shower without restrictions. No tub [...] not uncommon. The patient may take any gjdj-iyr-qflbknv medication(s) that have worked previously to correct [...] to call the office for postoperative appointment ([phone]). The patient will need to be seen [...] by mouth daily. L GASSERI/B BIFIDUM/B LONGUM ([employer] ORAL) Take by mouth. oxyCODONE-acetaminophen (PERCOCET) 5-325 [...] 2.8- replace with iv and po kcl E ROLL OPERATOR * Ann Griggs MD - 2013 7:29 AM CST Min nausea, no emesis, + BM AVSS abd soft, nd, inc c/d/i Drains serosang Wbc 10 POD 5 Inc diet OOB Likely home w/in the next day or two Ayaka E ROLL OPERATOR * Jillian Gonzalez MD - 12/08/2013 11:37 AM CST [facility] Hospitalist Progress Note Admit Date: [...] the following: . Jillian Gonzalez MD MD [facility] Hospitalist [phone] E ROLL OPERATOR * Ann Griggs MD - 12/08/2013 8:00 AM CST C/o RUQ pain this am relieved with +flatus/BM Afeb, VSS abd soft, nd Inc c/d/i Drains serosang POD 4 Trial full liquids OOB D/c epidural, d/c lorenzo 6 hrs after E ROLL OPERATOR * Jamar Syed MD - 12/07/2013 5:56 PM CST Patient alert and up in chair. Epidural site hurts when laying in bed but not when up walking around. This was checked by Noman WOODS earlier in the day. No erythema. Pain control good. Wiggles feet well. Itching no longer bothersome. Continue epidural till tomorrow. E ROLL OPERATOR * Jillian Gonzalez MD - 12/07/2013 [...] now as she is npo, cont SSI E ROLL OPERATOR * Ann Griggs MD - 12/07/2013 6:44 AM CST BS better controlled Pain is a 6 of 10 Afeb, VSS abd soft, nd NGT bilious Drains serosang POD 3 Clamping trial NGT OOB Cont epidural another day Cont lorenzo 2/2 epirual E ROLL OPERATOR * Jillian Gonzalez MD - 12/06/2013 8:16 PM CST [facility] Admit Date: 12/04/2013 Date of [...] the following: . Jillian Gonzalez MD MD [facility] [phone] E ROLL OPERATOR * Yi Mckee RN - 12/05/2013 3:17 PM CST Undress and Assess performed by ADRIAN stallworth and does not have skin breakdown. Wound care consult was notinitiated. Abdominal surgical sites covered by dressing; c/d/i. E ROLL OPERATOR * Maile West MD - 12/05/2013 11:06 AM CST 12/05/2013 11:06 AM Acute Pain Service Name: Rebel Fernández Age: 62 y.o. Sex: female CSN: [id number] POD # 1. Rebel is doing well, [...] po and NGT out.. Maile West MD E ROLL OPERATOR * Ann Griggs MD - 12/05/2013 11:03 AM CST No issues o/n AVSS u/o adequate abd soft, nd Inc c/d/i Drains serosang hgb stable POD 1 OOICU to 4th floor surgery only, my service hospitalist c/s Cont drains/NGT/lorenzo/epidural Lorenzo needed 2/2 epidural Ayaka E ROLL OPERATOR * Ann Muhammad DO - 12/05/2013 7:52 AM CST [facility] Transfer Note 12/05/2013 7:52 AM Patient transferring to Medicine Physician /PA/ MOBILE UI DESIGNER Communication: Ann Muhammad DO to Physician Date/Time: 12/05/13 at 0810 Is the accepting physician aware that patient needs to be seen on day of transfer? yes (regarding patient's not seen by [facility] attending prior to transfer) Family Member Communication: Physician to patient; Relationship to patient: patient Transfer orders have been reviewed with the RN and the team caring for the patient: yes Any special needs for this patient? no If yes, describe: Attending Physician changed to accepting Hospitalist, if applicable: N/A E ROLL OPERATOR * Ann Muhammad DO - 12/05/2013 [...] No results found for this basename: PHARTERIAL, GNU3VYX, PO2ART, TAC4ROJ, BASEEXCESS, SO2ABG, FOHBABG Central VBG: No results found for this basename: PHMIXEDVEN, VG0VTPIHEL, SSU0NWZVDP, EAL5CNDME, IV7JAXX Lactic acid: No results found for this basename: LACTATE Radiology: n/a E ROLL OPERATOR * Clara Diaz RN - 12/04/2013 2:00 PM CST Undress and Assess performed by: Clara Diaz RN & Celia Mcgrath RN does not have skin breakdown. Location of breakdown: Description of breakdown: Wound care consult was not initiated. E ROLL OPERATOR documented in this encounter H&P Notes [...] No results found for this basename: PHARTERIAL, AIH9QLV, PO2ART, HZI0WHK, BASEEXCESS, SO2ABG, FOHBABG Central VBG: No results found for this basename: PHMIXEDVEN, AK5UGQYSAR, ZNU0PNYGDD, ROV4QIUHW, CY6BDTB Lactic acid: No results found for this [...] above with Fellow, who is in agreement E ROLL OPERATOR * Ann Griggs MD - 12/04/2013 [...] the procedure and is willing to proceed. E ROLL OPERATOR documented in this encounter Consult Notes [...] X2. Safety check completed. RN notified. ?? E ROLL OPERATOR * Jillian Gonzalez MD - 12/05/2013 12:23 PM CSTAssociated Order(s): IP CONSULT TO INTERNAL MEDICINE [facility] Hospitalist Consultation Consult requested by Ann Humphreys [...] WHIPPLE performed by Ann Griggs MD at [facility] OR MAIN Current Medications: Current Facility-Administered [...] wheezing Cardiac: No CP, SOB, History of [place] or angina GI: abd pain controlled : [...] 11/27/2013 3:00 PM [facility] you for [facility]. I have taken the liberty of writing orders consistent with my recommendations. We will gladly follow the patient throughout their stay. Jillian Gonzalez MD E ROLL OPERATOR documented in this encounter OR Notes * Operative Report - Ann Griggs MD - 12/22/2013 7:01 PM CDT [place], [place] [address] Operative Report CSN: [id number] DATE OF SERVICE: 12/04/2013 SURGEON Ann Griggs [...] recovery room in stable condition. RLN:MEDQ DID: [id number] Dictated by: Ann Griggs M.D. * Operative Report - Ann Griggs MD - 12/20/2013 11:13 AM CDT [place], [place] [address] Operative Report CSN: [id number] DATE OF SERVICE: 12/04/2013 SURGEON Ann Griggs [...] recovery room in stable condition. RLN:MEDQ DID: [id number] Dictated by: Ann Griggs M.D. * OR Anesthesia - Jamar Syed MD - 12/08/2013 9:12 AM CST 12/08/2013 9:12 AM Acute Pain Service Name: Rebel Fernández Age: 63 y.o. Sex: female CSN: [id number] POD # 4 Epidural Infusing Pain scale [...] Acute Pain Service may be contacted through [employer] phones [phone] during daytime resourcehours, or pager [phone] at any time. If there is no answer within 20 minutes, call [phone] for the Anesthesiologist environmental engineering assistant. Jamar Syed MD E ROLL OPERATOR * OR Anesthesia - Joe Sanchez [...] (*) 65 - 99 mg/dL CLIA LICENSE [id number] POC GLUCOSE Result Value Range POC GLUCOSE 154 (*) 65 - 99 mg/dL CLIA LICENSE [id number] POC GLUCOSE Result Value Range POC GLUCOSE 155 (*) 65 - 99 mg/dL CLIA LICENSE [id number] POC GLUCOSE Result Value Range POC GLUCOSE 137 (*) 65 - 99 mg/dL CLIA LICENSE [id number] Continue epidural at 5 cc/hr Discussed the [...] Fernández Age: 62 y.o. Sex: female CSN: [id number] POD # 2 Epidural Infusing at 5 [...] control. Will leave epidural at current rate E ROLL OPERATOR * Anesthesia Handoff - Bria Jacobson [...] 11:45 AM) 11:51 AM Bria Jacobson CRNA E ROLL OPERATOR * OR Anesthesia - Maile West [...] mL as BP tolerates. Maile West MD E ROLL OPERATOR documented in this encounter Miscellaneous Notes * Query - Shannon Hart - 12/12/2013 7:20 AM CDT Please respond within 48 hours. Thank you! The authenticated query note is part of the Legal Health Record Patient Name: Rebel Fernández Admission Date: 12/04/2013 Hospital [facility] #: [id number] Dear Doctor, Note: To answer the following question(s), please click F2 in front of the highlighted area(s). Question: Because bedside physician/MOBILE UI DESIGNER/PA must provide clarification of pathological findings priorto [...] this coding query please contact me at [email or web address] or [phone] * Care Plan - Clara Doty RN - 12/10/2013 4:40 AM CDT Problem: General Plan of Care (Adult, Obstetrics) Goal: Individualization/Patient-Specific Goal (Adult, Obstetrics) The patient and/or their resources representative will achieve their patient-specific goals related [...] Goal (Adult, Obstetrics) The patient and/or their resources representative will achieve their patient-specific goals related [...] pain medication once and she took Percocet. E ROLL OPERATOR * Care Plan - Clara Doty RN - 2013 5:21 AM CST Problem: General Plan of Care (Adult, Obstetrics) Goal: Individualization/Patient-Specific Goal (Adult, Obstetrics) The patient and/or their resources representative will achieve their patient-specific goals related [...] other issues overnight. Call light within reach. E ROLL OPERATOR * Care Plan - Samantha Perez RN - 12/08/2013 4:07 PM CST Problem: General Plan of Care (Adult, Obstetrics) Goal: Plan of Care Review (Adult, Obstetrics) The patient and/or their resources representative will communicate an understanding of their [...] sign on door, stand-by assist when ambulating. E ROLL OPERATOR * Care Plan - Carolyn Lei, [...] intake, wts, labs, skin and f/u q4days/prn E ROLL OPERATOR * Care Plan - Roddy Marley RN - 12/08/2013 5:49 AM CST Problem: General Plan of Care (Adult, Obstetrics) Goal: Individualization/Patient-Specific Goal (Adult, Obstetrics) The patient and/or their resources representative will achieve their patient-specific goals related [...] bed, and Preventing Falls education handout reviewed. E ROLL OPERATOR * Care Plan - Brea Galan RN - 12/07/2013 5:49 PM CST Problem: General Plan of Care (Adult, Obstetrics) Goal: Individualization/Patient-Specific Goal (Adult, Obstetrics) The patient and/or their resources representative will achieve their patient-specific goals related [...] in good spirits. Will continue to monitor. E ROLL OPERATOR * Care Plan - Roddy Marley RN - 12/07/2013 8:15 AM CST Problem: General Plan of Care (Adult, Obstetrics) Goal: Individualization/Patient-Specific Goal (Adult, Obstetrics) The patient and/or their resources representative will achieve their patient-specific goals related [...] Call light and personal items within reach. E ROLL OPERATOR * Care Plan - Brea Galan RN - 12/06/2013 5:55 PM CST Problem: General Plan of Care (Adult, Obstetrics) Goal: Individualization/Patient-Specific Goal (Adult, Obstetrics) The patient and/or their resources representative will achieve their patient-specific goals related [...] has increased ambulation. Will continue to monitor. E ROLL OPERATOR * Care Plan - Anupam Marley [...] asneeded. Anupam Marley RN BSN Care Management [id number] E ROLL OPERATOR * Care Plan - Kay Hollingsworth RN - 12/06/2013 6:11 AM CST Problem: General Plan of Care (Adult, Obstetrics) Goal: Individualization/Patient-Specific Goal (Adult, Obstetrics) The patient and/or their resources representative will achieve their patient-specific goals related [...] get up later this AM and walk. E ROLL OPERATOR * Care Plan - Yi Mckee RN - 12/05/2013 4:36 PM CST Problem: General Plan of Care (Adult, Obstetrics) Goal: Individualization/Patient-Specific Goal (Adult, Obstetrics) The patient and/or their resources representative will achieve their patient-specific goals related [...] bed, and Preventing Falls education handout reviewed. E ROLL OPERATOR * Care Plan - Federico Byrd RN - 12/05/2013 1:53 PM CST Pt. Arrived to room 662 from 490 stable and un changed. Per Dr. Griggs's note pt. Trans. To room 44, report called to Adrian STALLWORTH. E ROLL OPERATOR * Care Plan - Sidney Tatum [...] Monitoring I&O's and lab values. Monitoring temps. E ROLL OPERATOR * Care Plan - Clara Diaz [...] DEC. Pt drowsy but awakens to voice. E ROLL OPERATOR * Care Plan - Nevaeh Bazzi [...] perioperative experience Outcome Met: Pt/family understands instructions E ROLL OPERATOR documented in this encounter Plan of Treatment Not on file documented as of this encounter Procedures Procedure Name Priority Date/Time Associated Diagnosis Comments TELEMETRY REPORT 12/19/2013 5:32 PM CDT POC GLUCOSE Routine 12/10/2013 8:34 AM CDT BASIC METABOLIC PANEL Routine 12/10/2013 4:50 AM CDT POC GLUCOSE Routine 2013 8:50 PM ANGLE ROLL OPERATOR POC GLUCOSE Routine 2013 5:08 PM ANGLE ROLL OPERATOR POC GLUCOSE Routine 2013 2:04 PM ANGLE ROLL OPERATOR POC GLUCOSE Routine 2013 9:37 AM ANGLE ROLL OPERATOR CBC WITH DIFFERENTIAL Routine 2013 4:37 AM ANGLE ROLL OPERATOR BASIC METABOLIC PANEL Routine 2013 4:37 AM ANGLE ROLL OPERATOR POC GLUCOSE Routine 12/08/2013 9:18 PM ANGLE ROLL OPERATOR POC GLUCOSE Routine 12/08/2013 5:51 PM ANGLE ROLL OPERATOR POC GLUCOSE Routine 12/08/2013 1:43 PM ANGLE ROLL OPERATOR CBC WITH DIFFERENTIAL Routine 12/08/2013 11:20 AM ANGLE ROLL OPERATOR POC GLUCOSE Routine 12/08/2013 5:29 AM ANGLE ROLL OPERATOR POC GLUCOSE Routine 12/07/2013 11:24 PM ANGLE ROLL OPERATOR POC GLUCOSE Routine 12/07/2013 5:52 PM ANGLE ROLL OPERATOR POC GLUCOSE Routine 12/07/2013 12:44 PM ANGLE ROLL OPERATOR CBC WITH DIFFERENTIAL Routine 12/07/2013 6:12 AM ANGLE ROLL OPERATOR COMPREHENSIVE METABOLIC PANEL Routine 12/07/2013 6:12 AM ANGLE ROLL OPERATOR POC GLUCOSE Routine 12/07/2013 5:44 AM ANGLE ROLL OPERATOR POC GLUCOSE Routine 12/07/2013 12:50 AM ANGLE ROLL OPERATOR POC GLUCOSE Routine 12/06/2013 6:47 PM ANGLE ROLL OPERATOR POC GLUCOSE Routine 12/06/2013 12:12 PM ANGLE ROLL OPERATOR CBC WITH DIFFERENTIAL Routine 12/06/2013 5:25 AM ANGLE ROLL OPERATOR COMPREHENSIVE METABOLIC PANEL Routine 12/06/2013 5:25 AM ANGLE ROLL OPERATOR POC GLUCOSE Routine 12/06/2013 5:11 AM ANGLE ROLL OPERATOR POC GLUCOSE Routine 12/05/2013 11:13 PM ANGLE ROLL OPERATOR POC GLUCOSE Routine 12/05/2013 5:09 PM ANGLE ROLL OPERATOR POC GLUCOSE Routine 12/05/2013 1:01 PM ANGLE ROLL OPERATOR POC GLUCOSE Routine 12/05/2013 9:10 AM ANGLE ROLL OPERATOR CBC WITH DIFFERENTIAL Routine 12/05/2013 4:15 AM ANGLE ROLL OPERATOR COMPREHENSIVE METABOLIC PANEL Routine 12/05/2013 4:15 AM ANGLE ROLL OPERATOR POC GLUCOSE Routine 12/05/2013 4:06 AM ANGLE ROLL OPERATOR POC GLUCOSE Routine 12/04/2013 11:16 PM ANGLE ROLL OPERATOR POC GLUCOSE Routine 12/04/2013 8:15 PM ANGLE ROLL OPERATOR POC GLUCOSE Routine 12/04/2013 5:57 PM ANGLE ROLL OPERATOR PATHOLOGY Routine 12/04/2013 12:33 PM ANGLE ROLL OPERATOR POC GLUCOSE Routine 12/04/2013 11:48 AM ANGLE ROLL OPERATOR POC GLUCOSE Routine 12/04/2013 7:11 AM ANGLE ROLL OPERATOR HOLDENIPPLE 12/04/2013 6:55 AM ANGLE ROLL OPERATOR Case Notes JOSE RAFAEL, [id number] YULIANA Jalen [id number] documented in this encounter Results * TELEMETRY REPORT (12/19/2013 5:32 PM CDT) Provider Scanning ECG ORDERABLES * (ABNORMAL) POC GLUCOSE (12/10/2013 8:34 AM CDT) GLUCOSE POC 171(H) 65 - 99 mg/dL INTERFACE SYSTEM CLIA LICENSE [id number] INTERF YANY SYSTEM Blood specimen (specimen) 12/10/2013 8:34 AM CDT 12/10/2013 8:34 AM CDT Ann Griggs MD POINT OF CARE TESTIN G INTERFACE SYSTEM Refer to clinic/hospital department * (ABNORMAL) BASIC METABOLIC PANEL (12/10/2013 4:50 AM CDT) SODIUM 138 135 - 145 mmol/L [facility] POTASSIUM 3.7 3.5 - 4.9 mmol/L [facility] CHLORIDE 100 96 - 108 mmol/L [facility] CO2 28 22 - 30 mmol/L [facility] CALCIUM 9.1 8.6 - 10.2 mg/dL [facility] BUN 11 6 - 20 mg/dL [facility] CREATININE 0.73 0.51 - 0.95 mg/dL [facility] GLUCOSE 149(H) 65 - 99 mg/dL [facility] GFR, >60 >=60 mL/min/1. 7 sq meter [facility] - [facility] GFR >60 >=60 mL/min/1. 7 sq meter [facility] Comment: GFR is calculated using the IDMS-Traceable Modification of Diet in Renal Disease (MDRD) Study formula and is only valid for patients 18 years or older. Further interpretative information is available in the Laboratory Services Policy Manual on the [facility] Intranet at: [email or web address]-intranet.[facility] regional health care corporationImproveit! 360[facility]/ Blood specimen (specimen) 12/10/2013 4:50 AM CDT 12/10/2013 5:45 AM CDT Jillian Gonzalez MD CHEMISTRY ORDERABLES [facility] CLIA# [id number] [address] * (ABNORMAL) POC GLUCOSE (2013 8:50 PM ANGLE ROLL OPERATOR) GLUCOSE POC 161(H) 65 - 99 mg/dL INTERFACE SYSTEM CLIA LICENSE [id number] INTERF YANY SYSTEM Blood specimen (specimen) 2013 8:50 PM ANGLE ROLL OPERATOR 2013 8:50 PM ANGLE ROLL OPERATOR Ann Griggs MD POINT OF CARE TESTFREDI G Performing Organization Address [facility] Co de Phone Number INTERFACE SYSTEM Refer to clinic/hospital department * (ABNORMAL) POC GLUCOSE (2013 5:08 PM ANGLE ROLL OPERATOR) GLUCOSE POC 169(H) 65 - 99 mg/dL INTERFACE SYSTEM CLIA LICENSE [id number] INTERF YANY SYSTEM Blood specimen (specimen) 2013 5:08 PM ANGLE ROLL OPERATOR 2013 5:08 PM ANGLE ROLL OPERATOR Ann Griggs MD POINT OF CARE TESTIN G Performing Organization Address [facility] Co de Phone Number INTERFACE SYSTEM Refer to clinic/hospital department * (ABNORMAL) POC GLUCOSE (2013 2:04 PM ANGLE ROLL OPERATOR) GLUCOSE POC 160(H) 65 - 99 mg/dL INTERFACE SYSTEM CLIA LICENSE [id number] INTERF YANY SYSTEM Blood specimen (specimen) 2013 2:04 PM ANGLE ROLL OPERATOR 2013 2:04 PM ANGLE ROLL OPERATOR Ann Griggs MD POINT OF CARE TESTFREDI G Performing Organization Address City/[facility] Co de Phone Number INTERFACE SYSTEM Refer to clinic/hospital department * (ABNORMAL) POC GLUCOSE (2013 9:37 AM ANGLE ROLL OPERATOR) GLUCOSE POC 144(H) 65 - 99 mg/dL INTERFACE SYSTEM CLIA LICENSE [id number] INTERF YANY SYSTEM Blood specimen (specimen) 2013 9:37 AM ANGLE ROLL OPERATOR 2013 9:37 AM ANGLE ROLL OPERATOR Ann Griggs MD POINT OF CARE TESTIN Danilo INTERFACE SYSTEM Refer to clinic/hospital department * (ABNORMAL) CBC WITH DIFFERENTIAL (2013 4:37 AM ANGLE ROLL OPERATOR) WBC 10.6(H) 4.0 - 9.8 K/uL [facility] RBC 4.00 3.90 - 4.90 M/uL [facility] HEMOGLOBIN 12.0 11.8 - 14.8 g/dL [facility] HEMATOCRIT 35.9 35.5 - 44.0 % [facility] MCV 89.8 82.0 - 99.0 fL [facility] MCH 30.0 27.2 - 32.6 pg [facility] MCHC 33.4 31.5 - 35.5 % [facility] PLATELETS 347 140 - 350 K/uL [facility] MPV 10.7 9.3 - 12.4 fL [facility] RDW 13.1 11.5 - 14.5 % [facility] RDW-STDEV 42.6 37.1 - 48.7 fL [facility] NEUTROPHILS 72(H) 45 - 70 % [facility] LYMPHOCYTES 13(L) 16 - 45 % [facility] MONOCYTES 11 3 - 13 % [facility] EOSINOPHILS 3 0 - 7 % [facility] BASOPHILS 0 0 - 2 % [facility] NEUTROPHIL ABSOLUTE 7.66(H) 1.90 - 7.00 K/uL [facility] LYMPHOCYTE ABSOLUTE 1.34 0.70 - 4.50 K/uL [facility] MONOCYTE ABSOLUTE 1.21 0.10 - 1.30 K/uL [facility] EOSINOPHIL ABSOLUTE 0.35 0.00 - 0.70 K/uL [facility] BASOPHILS ABSOLUTE 0.01 0.00 - 0.20 K/uL [facility] Blood specimen (specimen) 2013 4:37 AM ANGLE ROLL OPERATOR 2013 5:34 AM ANGLE ROLL OPERATOR Ann Griggs MD HEMATOLOGY ORDERABLE S [facility] CLIA# [id number] [address] [facility] [place] [address] * (ABNORMAL) BASIC METABOLIC PANEL (2013 4:37 AM ANGLE ROLL OPERATOR) SODIUM 140 135 - 145 mmol/L [facility] POTASSIUM 2.8(L) 3.5 - 4.9 mmol/L [facility] CHLORIDE 98 96 - 108 mmol/L [facility] CO2 26 22 - 30 mmol/L [facility] CALCIUM 9.4 8.6 - 10.2 mg/dL [facility] BUN 6 6 - 20 mg/dL [facility] CREATININE 0.72 0.51 - 0.95 mg/dL [facility] GLUCOSE 160(H) 65 - 99 mg/dL [facility] GFR, >60 >=60 mL/min/1. 7 sq meter [facility] GFR >60 >=60 mL/min/1. 7 sq meter [facility] Comment: GFR is calculated using the IDMS-Traceable Modification of Diet in Renal Disease (MDRD) Study formula and is only valid for patients 18 years or older. Further interpretative information is available in the Laboratory Services Policy Manual on the [facility] Intranet at: [email or web address]/ Blood specimen (specimen) 2013 4:37 AM ANGLE ROLL OPERATOR 2013 5:32 AM ANGLE ROLL OPERATOR Jillian Gonzalez MD CHEMISTRY ORDERABLES [facility] CLIA# [id number] [address] [place] [address] * (ABNORMAL) POC GLUCOSE (12/08/2013 9:18 PM ANGLE ROLL OPERATOR) GLUCOSE POC 176(H) 65 - 99 mg/dL INTERFACE SYSTEM CLIA LICENSE [id number] INTERF YANY SYSTEM Blood specimen (specimen) 12/08/2013 9:18 PM ANGLE ROLL OPERATOR 12/08/2013 9:18 PM ANGLE ROLL OPERATOR Ann Griggs MD POINT OF CARE TESTIN G Performing Organization Address [facility] Co de Phone Number INTERFACE SYSTEM Refer to clinic/hospital department * (ABNORMAL) POC GLUCOSE (12/08/2013 5:51 PM ANGLE ROLL OPERATOR) GLUCOSE POC 162(H) 65 - 99 mg/dL INTERFACE SYSTEM COMMENT, GLU POC Notified RN/MD INTERFACE SYSTEM CLIA LICENSE [id number] INTERF YANY SYSTEM Blood specimen (specimen) 12/08/2013 5:51 PM ANGLE ROLL OPERATOR 12/08/2013 5:51 PM ANGLE ROLL OPERATOR Ann Griggs MD POINT OF CARE TESTIN Danilo Performing Organization Address [facility] Co de Phone Number INTERFACE SYSTEM Refer to clinic/hospital department * (ABNORMAL) POC GLUCOSE (12/08/2013 1:43 PM ANGLE ROLL OPERATOR) GLUCOSE POC 137(H) 65 - 99 mg/dL INTERFACE SYSTEM CLIA LICENSE [id number] INTERF YANY SYSTEM Blood specimen (specimen) 12/08/2013 1:43 PM ANGLE ROLL OPERATOR 12/08/2013 1:43 PM ANGLE ROLL OPERATOR Ann Griggs MD POINT OF CARE TESTFREDI Carrasco Performing Organization Address [facility] Co de Phone Number INTERFACE SYSTEM Refer to clinic/hospital department * (ABNORMAL) CBC WITH DIFFERENTIAL (12/08/2013 11:20 AM ANGLE ROLL OPERATOR) WBC 12.1(H) 4.0 - 9.8 K/uL [facility] RBC 3.98 3.90 - 4.90 M/uL [facility] HEMOGLOBIN 11.9 11.8 - 14.8 g/dL [facility] HEMATOCRIT 36.0 35.5 - 44.0 % [facility] MCV 90.5 82.0 - 99.0 fL [facility] MCH 29.9 27.2 - 32.6 pg [facility] MCHC 33.1 31.5 - 35.5 % [facility] PLATELETS 303 140 - 350 K/uL [facility] MPV 10.6 9.3 - 12.4 fL [facility] RDW 13.1 11.5 - 14.5 % [facility] RDW-STDEV 42.8 37.1 - 48.7 fL [facility] NEUTROPHILS 79(H) 45 - 70 % [facility] LYMPHOCYTES 11(L) 16 - 45 % [facility] MONOCYTES 8 3 - 13 % [facility] EOSINOPHILS 1 0 - 7 % [facility] BASOPHILS 0 0 - 2 % [facility] NEUTROPHIL ABSOLUTE 9.64(H) 1.90 - 7.00 K/uL [facility] LYMPHOCYTE ABSOLUTE 1.32 0.70 - 4.50 K/uL [facility] MONOCYTE ABSOLUTE 1.03 0.10 - 1.30 K/uL [facility] EOSINOPHIL ABSOLUTE 0.13 0.00 - 0.70 K/uL [facility] BASOPHILS ABSOLUTE 0.01 0.00 - 0.20 K/uL [facility] Blood specimen (specimen) 12/08/2013 11:20 AM ANGLE ROLL OPERATOR 12/08/2013 11:25 AM ANGLE ROLL OPERATOR Ann Griggs MD HEMATOLOGY ORDERABLE S [facility] CLIA# [id number] [address] [place], [place] [address] * (ABNORMAL) POC GLUCOSE (12/08/2013 5:29 AM ANGLE ROLL OPERATOR) GLUCOSE POC 137(H) 65 - 99 mg/dL INTERFACE SYSTEM CLIA LICENSE [id number] INTERF YANY SYSTEM Blood specimen (specimen) 12/08/2013 5:29 AM ANGLE ROLL OPERATOR 12/08/2013 5:29 AM ANGLE ROLL OPERATOR Ann Griggs MD POINT OF CARE TESTIN G INTERFACE SYSTEM Refer to clinic/hospital department * (ABNORMAL) POC GLUCOSE (12/07/2013 11:24 PM ANGLE ROLL OPERATOR) GLUCOSE POC 155(H) 65 - 99 mg/dL INTERFACE SYSTEM CLIA LICENSE [id number] INTERF YANY SYSTEM Blood specimen (specimen) 12/07/2013 11:24 PM ANGLE ROLL OPERATOR 12/07/2013 11:24 PM ANGLE ROLL OPERATOR Ann Griggs MD POINT OF CARE TESTIN G INTERFACE SYSTEM Refer to clinic/hospital department * (ABNORMAL) POC GLUCOSE (12/07/2013 5:52 PM ANGLE ROLL OPERATOR) GLUCOSE POC 154(H) 65 - 99 mg/dL INTERFACE SYSTEM CLIA LICENSE [id number] INTERF YANY SYSTEM Blood specimen (specimen) 12/07/2013 5:52 PM ANGLE ROLL OPERATOR 12/07/2013 5:52 PM ANGLE ROLL OPERATOR Jillian Gonzalez MD POINT OF CARE TESTIN G INTERFACE SYSTEM Refer to clinic/hospital department * (ABNORMAL) POC GLUCOSE (12/07/2013 12:44 PM ANGLE ROLL OPERATOR) GLUCOSE POC 142(H) 65 - 99 mg/dL INTERFACE SYSTEM CLIA LICENSE [id number] INTERF YANY SYSTEM Blood specimen (specimen) 12/07/2013 12:44 PM ANGLE ROLL OPERATOR 12/07/2013 12:44 PM ANGLE ROLL OPERATOR Ann Griggs MD POINT OF CARE TESTIN Danilo INTERFACE SYSTEM Refer to clinic/hospital department * (ABNORMAL) COMPREHENSIVE METABOLIC PANEL (12/07/2013 6:12 AM ANGLE ROLL OPERATOR) SODIUM 138 135 - 145 mmol/L [facility] POTASSIUM 3.4(L) 3.5 - 4.9 mmol/L [facility] - [facility] CHLORIDE 99 96 - 108 mmol/L [facility] CO2 27 22 - 30 mmol/L [facility] LABORATORY [facility] CALCIUM 8.9 8.6 - 10.2 mg/dL [facility] LABORATORY [facility] - . [facility] BUN 9 6 - 20 mg/dL [facility] LABORATORY [facility] CREATININE 0.67 0.51 - 0.95 mg/dL [facility] GLUCOSE 156(H) 65 - 99 mg/dL [facility] LABORATORY [facility] TOTAL PROTEIN 6.5 6.3 - 8.6 g/dL [facility] LABORATORY [facility] ALBUMIN 3.3(L) 3.4 - 4.8 g/dL [facility] LABORATORY [facility] BILIRUBIN TOTAL 0.6 0.2 - 1.0 mg/dL [facility] LABORATORY [facility] ALKALINE PHOSPHATASE 51 35 - 104 U/L [facility]AT[facility] AST 58(H) 12 - 32 U/L [facility] LABORATORY [facility] - . [facility] ALT 74(H) 0 - 31 U/L [facility] LAB[facility]AT[facility] GFR, >60 >=60 mL/min/1. 7 sq meter [facility]ATORY SERVICES - . [facility] GFR >60 >=60 mL/min/1. 7 sq meter [facility] LABORATORY SERVICES [facility] Comment: GFR is calculated using the IDMS-Traceable Modification of Diet in Renal Disease (MDRD) Study formula and is only valid for patients 18 years or older. Further interpretative information is available in the Laboratory Services Policy Manual on the [facility] Intranet at: [email or web address].[email or web address] include 234 beds at the [facility]/ Blood specimen (specimen) 12/07/2013 6:12 AM ANGLE ROLL OPERATOR 12/07/2013 6:39 AM ANGLE ROLL OPERATOR Jillian Gonzalez MD CHEMISTRY ORDERABLES [facility] CLIA# [id number] [address] [facility] [place] [place], [place] [address] * (ABNORMAL) CBC WITH DIFFERENTIAL (12/07/2013 6:12 AM ANGLE ROLL OPERATOR) WBC 14.8(H) 4.0 - 9.8 K/uL [facility] RBC 3.68(L) 3.90 - 4.90 M/uL [facility] HEMOGLOBIN 11.0(L) 11.8 - 14.8 g/dL [facility] HEMATOCRIT 34.4(L) 35.5 - 44.0 % [facility] MCV 93.5 82.0 - 99.0 fL [facility] MCH 29.9 27.2 - 32.6 pg [facility] MCHC 32.0 31.5 - 35.5 % [facility] PLATELETS 241 140 - 350 K/uL [facility] MPV 11.2 9.3 - 12.4 fL [facility] - . [facility] RDW 13.4 11.5 - 14.5 % [facility] RDW-STDEV 45.8 37.1 - 48.7 fL [facility] NEUTROPHILS 83(H) 45 - 70 % [facility] LYMPHOCYTES 9(L) 16 - 45 % [facility] MONOCYTES 8 3 - 13 % [facility] EOSINOPHILS 0 0 - 7 % [facility] BASOPHILS 0 0 - 2 % [facility] NEUTROPHIL ABSOLUTE 12.28(H) 1.90 - 7.00 K/uL [facility] - [facility] LYMPHOCYTE ABSOLUTE 1.36 0.70 - 4.50 K/uL [facility] - . [facility] MONOCYTE ABSOLUTE 1.14 0.10 - 1.30 K/uL [facility] - [facility] EOSINOPHIL ABSOLUTE 0.05 0.00 - 0.70 K/uL [facility] - [facility] BASOPHILS ABSOLUTE 0.01 0.00 - 0.20 K/uL [facility] - [facility] Blood specimen (specimen) 12/07/2013 6:12 AM ANGLE ROLL OPERATOR 12/07/2013 6:38 AM ANGLE ROLL OPERATOR Jillian Gonzalez MD HEMATOLOGY ORDERABLE S [facility] LABORATORY SERVICES [facility] CLIA# [id number] [address] [place], [place] [address] * (ABNORMAL) POC GLUCOSE (12/07/2013 5:44 AM ANGLE ROLL OPERATOR) GLUCOSE POC 148(H) 65 - 99 mg/dL INTERFACE SYSTEM CLIA LICENSE [id number] INTERF YANY SYSTEM Blood specimen (specimen) 12/07/2013 5:44 AM ANGLE ROLL OPERATOR 12/07/2013 5:44 AM ANGLE ROLL OPERATOR Jillian Gonzalez MD POINT OF CARE TESTIN G Performing Organization Address City/[facility] Co de Phone Number INTERFACE SYSTEM Refer to clinic/hospital department * (ABNORMAL) POC GLUCOSE (12/07/2013 12:50 AM ANGLE ROLL OPERATOR) GLUCOSE POC 102(H) 65 - 99 mg/dL INTERFACE SYSTEM CLIA LICENSE [id number] INTERF YANY SYSTEM Blood specimen (specimen) 12/07/2013 12:50 AM ANGLE ROLL OPERATOR 12/07/2013 12:50 AM ANGLE ROLL OPERATOR Ann Griggs MD POINT OF CARE TESTIN G INTERFACE SYSTEM Refer to clinic/hospital department * POC GLUCOSE (12/06/2013 6:47 PM ANGLE ROLL OPERATOR) GLUCOSE POC 78 65 - 99 mg/dL INTERFACE SYSTEM CLIA LICENSE [id number] INTERF YANY SYSTEM Blood specimen (specimen) 12/06/2013 6:47 PM ANGLE ROLL OPERATOR 12/06/2013 6:47 PM ANGLE ROLL OPERATOR Ann Griggs MD POINT OF CARE TESTIN Danilo INTERFACE SYSTEM Refer to clinic/hospital department * POC GLUCOSE (12/06/2013 12:12 PM ANGLE ROLL OPERATOR) GLUCOSE POC 87 65 - 99 mg/dL INTERFACE SYSTEM COMMENT, GLU POC Notified RN/MD INTERFACE SYSTEM CLIA LICENSE [id number] INTERF YANY SYSTEM Blood specimen (specimen) 12/06/2013 12:12 PM ANGLE ROLL OPERATOR 12/06/2013 12:12 PM ANGLE ROLL OPERATOR Jillian Gonzalez MD POINT OF CARE TESTIN G Performing Organization Address [facility] Co de Phone Number INTERFACE SYSTEM Refer to clinic/hospital department * (ABNORMAL) COMPREHENSIVE METABOLIC PANEL (12/06/2013 5:25 AM ANGLE ROLL OPERATOR) SODIUM 141 135 - 145 mmol/L [facility] POTASSIUM 3.3(L) 3.5 - 4.9 mmol/L [facility] CHLORIDE 101 96 - 108 mmol/L [facility] CO2 32(H) 22 - 30 mmol/L [facility] CALCIUM 8.6 8.6 - 10.2 mg/dL [facility] LABORATORY SERVICES [facility] BUN 16 6 - 20 mg/dL [facility] LABORATORY SERVICES [facility] CREATININE 0.86 0.51 - 0.95 mg/dL [facility] LABORATORY [facility] GLUCOSE 92 65 - 99 mg/dL [facility] LABORATORY SERVICES [facility] TOTAL PROTEIN 5.6(L) 6.3 - 8.6 g/dL [facility] LABORATORY SERVICES [facility] ALBUMIN 3.2(L) 3.4 - 4.8 g/dL [facility] BILIRUBIN TOTAL 0.4 0.2 - 1.0 mg/dL [facility] LABORATORY SERVICES [facility] ALKALINE PHOSPHATASE 38 35 - 104 U/L [facility] AST 92(H) 12 - 32 U/L [facility] ALT 104(H) 0 - 31 U/L [facility] LABORATORY SERVICES [facility] GFR, >60 >=60 mL/min/1. 7 sq meter [facility]ATORY SERVICES - [facility] GFR >60 >=60 mL/min/1. 7 sq meter [facility] LABORATORY SERVICES [facility] Comment: GFR is calculated using the IDMS-Traceable Modification of Diet in Renal Disease (MDRD) Study formula and is only valid for patients 18 years or older. Further interpretative information is available in the Laboratory Services Policy Manual on the [facility] Intranet at: [email or web address] [email or web address] health care corporationImproveit! [facility]/ Blood specimen (specimen) 12/06/2013 5:25 AM ANGLE ROLL OPERATOR 12/06/2013 6:26 AM ANGLE ROLL OPERATOR Jillian Gonzalez MD CHEMISTRY ORDERABLES [facility] LABORATORY [facility] CLIA# [id number] [address] [place] [address] * (ABNORMAL) CBC WITH DIFFERENTIAL (12/06/2013 5:25 AM ANGLE ROLL OPERATOR) WBC 12.9(H) 4.0 - 9.8 K/uL [facility]ATORY [facility] RBC 3.42(L) 3.90 - 4.90 M/uL [facility] LABORATORY [facility] HEMOGLOBIN 10.1(L) 11.8 - 14.8 g/dL [facility] LABORATORY [facility] HEMATOCRIT 32.7(L) 35.5 - 44.0 % [facility]ORATORY [facility] MCV 95.6 82.0 - 99.0 fL [facility]ATORY [facility] MCH 29.5 27.2 - 32.6 pg [facility]AT[facility] MCHC 30.9(L) 31.5 - 35.5 % [facility] LAB[facility]ATORY [facility] PLATELETS 203 140 - 350 K/uL [facility]ATORY [facility] MPV 11.1 9.3 - 12.4 fL [facility] LAB[facility]ATORY [facility] RDW 14.0 11.5 - 14.5 % [facility] LABORATORY [facility] RDW-STDEV 48.4 37.1 - 48.7 fL [facility] NEUTROPHILS 80(H) 45 - 70 % [facility] LYMPHOCYTES 11(L) 16 - 45 % [facility] MONOCYTES 9 3 - 13 % [facility] EOSINOPHILS 0 0 - 7 % [facility] BASOPHILS 0 0 - 2 % [facility] - . [facility] NEUTROPHIL ABSOLUTE 10.28(H) 1.90 - 7.00 K/uL [facility] LYMPHOCYTE ABSOLUTE 1.44 0.70 - 4.50 K/uL [facility] - . [facility] MONOCYTE ABSOLUTE 1.17 0.10 - 1.30 K/uL [facility] - . [facility] EOSINOPHIL ABSOLUTE 0.02 0.00 - 0.70 K/uL [facility] - [facility] BASOPHILS ABSOLUTE 0.01 0.00 - 0.20 K/uL [facility] Blood specimen (specimen) 12/06/2013 5:25 AM ANGLE ROLL OPERATOR 12/06/2013 6:26 AM ANGLE ROLL OPERATOR Jillian Gonzalez MD HEMATOLOGY ORDERABLE S [facility] LABORATORY SERVICES [facility] CLIA# [id number] [address] [place] [address] * POC GLUCOSE (12/06/2013 5:11 AM ANGLE ROLL OPERATOR) GLUCOSE POC 95 65 - 99 mg/dL INTERFACE SYSTEM CLIA LICENSE [id number] INTERF YANY SYSTEM Blood specimen (specimen) 12/06/2013 5:11 AM ANGLE ROLL OPERATOR 12/06/2013 5:11 AM ANGLE ROLL OPERATOR Ann Griggs MD POINT OF CARE TESTIN G INTERFACE SYSTEM Refer to clinic/hospital department * (ABNORMAL) POC GLUCOSE (12/05/2013 11:13 PM ANGLE ROLL OPERATOR) GLUCOSE POC 107(H) 65 - 99 mg/dL INTERFACE SYSTEM CLIA LICENSE [id number] INTERF YANY SYSTEM Blood specimen (specimen) 12/05/2013 11:13 PM ANGLE ROLL OPERATOR 12/05/2013 11:13 PM ANGLE ROLL OPERATOR Ann Griggs MD POINT OF CARE TESTIN G Performing Organization Address City/[facility] Phone Number INTERFACE SYSTEM Refer to clinic/hospital department * (ABNORMAL) POC GLUCOSE (12/05/2013 5:09 PM ANGLE ROLL OPERATOR) GLUCOSE POC 125(H) 65 - 99 mg/dL INTERFACE SYSTEM CLIA LICENSE [id number] INTERF YANY SYSTEM Blood specimen (specimen) 12/05/2013 5:09 PM ANGLE ROLL OPERATOR 12/05/2013 5:09 PM ANGLE ROLL OPERATOR Ann Griggs MD POINT OF CARE TESTFREDI Carrasco Performing Organization Address [facility] Phone Number INTERFACE SYSTEM Refer to clinic/hospital department * (ABNORMAL) POC GLUCOSE (12/05/2013 1:01 PM ANGLE ROLL OPERATOR) GLUCOSE POC 115(H) 65 - 99 mg/dL INTERFACE SYSTEM CLIA LICENSE [id number] [employer] SYSTEM Blood specimen (specimen) 12/05/2013 1:01 PM ANGLE ROLL OPERATOR 12/05/2013 1:01 PM ANGLE ROLL OPERATOR Ann Griggs MD POINT OF CARE TESTIN G Performing Organization Address [facility] Phone Number INTERFACE SYSTEM Refer to clinic/hospital department * (ABNORMAL) POC GLUCOSE (12/05/2013 9:10 AM ANGLE ROLL OPERATOR) GLUCOSE POC 140(H) 65 - 99 mg/dL INTERFACE SYSTEM CLIA LICENSE [id number] [employer] SYSTEM Blood specimen (specimen) 12/05/2013 9:10 AM ANGLE ROLL OPERATOR 12/05/2013 9:10 AM ANGLE ROLL OPERATOR Ann Griggs MD POINT OF CARE TESTIN Danilo Performing Organization Address [facility] Phone Number INTERFACE SYSTEM Refer to clinic/hospital department * (ABNORMAL) COMPREHENSIVE METABOLIC PANEL (12/05/2013 4:15 AM ANGLE ROLL OPERATOR) SODIUM 141 135 - 145 mmol/L [facility]ATORY SERVICES - [facility] POTASSIUM 4.0 3.5 - 4.9 mmol/L [facility]ATORY SERVICES - [facility] CHLORIDE 104 96 - 108 mmol/L [facility] LABORATORY SERVICES - . [facility] CO2 29 22 - 30 mmol/L [facility] LABORATORY SERVICES [facility] CALCIUM 8.4(L) 8.6 - 10.2 mg/dL [facility] LABORATORY SERVICES [facility] BUN 22(H) 6 - 20 mg/dL [facility] LABORATORY SERVICES [facility]. [facility] CREATININE 0.87 0.51 - 0.95 mg/dL [facility] LABORATORY [facility] GLUCOSE 156(H) 65 - 99 mg/dL [facility] LABORATORY [facility] TOTAL PROTEIN 5.7(L) 6.3 - 8.6 g/dL [facility] LABORATORY [facility]. [facility] ALBUMIN 3.5 3.4 - 4.8 g/dL [facility] LABORATORY [facility]. [facility] BILIRUBIN TOTAL 0.4 0.2 - 1.0 mg/dL [facility] LABORATORY [facility] ALKALINE PHOSPHATASE 37 35 - 104 U/L [facility] LABORATORY [facility] AST 118(H) 12 - 32 U/L [facility] LABORATORY [facility] - . [facility] ALT 130(H) 0 - 31 U/L [facility] LABORATORY [facility] GFR, >60 >=60 mL/min/1. 7 sq meter [facility]ATORY SERVICES - [facility] GFR >60 >=60 mL/min/1. 7 sq meter [facility] LABORATORY [facility] Comment: GFR is calculated using the IDMS-Traceable Modification of Diet in Renal Disease (MDRD) Study formula and is only valid for patients 18 years or older. Further interpretative information is available in the Laboratory Services Policy Manual on the [facility] Intranet at: [email or web address]/ Blood specimen (specimen) 12/05/2013 4:15 AM ANGLE ROLL OPERATOR 12/05/2013 4:29 AM ANGLE ROLL OPERATOR Ann Muhammad DO CHEMISTRY ORDERABLES [facility] LABORATORY [facility] CLIA# [id number] [address] [place] [address] * (ABNORMAL) CBC WITH DIFFERENTIAL (12/05/2013 4:15 AM ANGLE ROLL OPERATOR) [facility] WBC 13.3(H) 4.0 - 9.8 K/uL [facility] - . [facility] RBC 3.60(L) 3.90 - 4.90 M/uL [facility] - . [facility] HEMOGLOBIN 10.9(L) 11.8 - 14.8 g/dL [facility] - . [facility] HEMATOCRIT 33.6(L) 35.5 - 44.0 % [facility] - . [facility] MCV 93.3 82.0 - 99.0 fL [facility] - . [facility] MCH 30.3 27.2 - 32.6 pg [facility] MCHC 32.4 31.5 - 35.5 % [facility] PLATELETS 236 140 - 350 K/uL [facility] - . [facility] MPV 11.2 9.3 - 12.4 fL [facility] - . [facility] RDW 13.8 11.5 - 14.5 % [facility] - . [facility] RDW-STDEV 47.2 37.1 - 48.7 fL [facility] [...] 0.70 K/uL [facility] - . [facility] BASOPHILS ABSOLUTE 0.00 0.00 - 0.20 K/uL [facility] - . [facility] Blood specimen (specimen) 12/05/2013 4:15 AM ANGLE ROLL OPERATOR 12/05/2013 4:29 AM ANGLE ROLL OPERATOR Ann Jb DO HEMATOLOGY ORDERABLE S [facility] CLIA# [id number] [address] [place] [address] * (ABNORMAL) POC GLUCOSE (12/05/2013 4:06 AM ANGLE ROLL OPERATOR) GLUCOSE POC 141(H) 65 - 99 mg/dL INTERFACE SYSTEM CLIA LICENSE [id number] INTERF YANY SYSTEM Blood specimen (specimen) 12/05/2013 4:06 AM ANGLE ROLL OPERATOR 12/05/2013 4:06 AM ANGLE ROLL OPERATOR Ann Bruceton DO POINT OF CARE TESTIN G INTERFACE SYSTEM Refer to clinic/hospital department * (ABNORMAL) POC GLUCOSE (12/04/2013 11:16 PM ANGLE ROLL OPERATOR) GLUCOSE POC 122(H) 65 - 99 mg/dL INTERFACE SYSTEM CLIA LICENSE [id number] INTERF YANY SYSTEM Blood specimen (specimen) 12/04/2013 11:16 PM ANGLE ROLL OPERATOR 12/04/2013 11:16 PM ANGLE ROLL OPERATOR Ann Bruceton DO POINT OF CARE TESTIN G INTERFACE SYSTEM Refer to clinic/hospital department * (ABNORMAL) POC GLUCOSE (12/04/2013 8:15 PM ANGLE ROLL OPERATOR) GLUCOSE POC 140(H) 65 - 99 mg/dL INTERFACE SYSTEM CLIA LICENSE [id number] INTERF YANY SYSTEM Blood specimen (specimen) 12/04/2013 8:15 PM ANGLE ROLL OPERATOR 12/04/2013 8:15 PM ANGLE ROLL OPERATOR Ann Bruceton DO POINT OF CARE TESTIN G INTERFACE SYSTEM Refer to clinic/hospital department * (ABNORMAL) POC GLUCOSE (12/04/2013 5:57 PM ANGLE ROLL OPERATOR) GLUCOSE POC 184(H) 65 - 99 mg/dL INTERFACE SYSTEM CLIA LICENSE [id number] INTERF YANY SYSTEM Blood specimen (specimen) 12/04/2013 5:57 PM ANGLE ROLL OPERATOR 12/04/2013 5:57 PM ANGLE ROLL OPERATOR Ann Griggs MD POINT OF CARE TESTIN G INTERFACE SYSTEM Refer to clinic/hospital department * PATHOLOGY (12/04/2013 12:33 PM ANGLE ROLL OPERATOR) SURGICAL PATHOLOGY ?[facility] ?[address] ? [place], [place] ??[id number] ? Patient: ??MARION, REBEL ? : ??1950 ? Procedure Date: ??12/04/2013 ? Accession Date: ??12/04/2013 ? Case No: ??[id number] ? Ordering Dr: ??ANN GRIGGS ? Case type SW is performed by [facility], [address] [place] [address], ? [place], [place] ??[id number]; all other case types are performed by [facility] ? [facility], [address] [place], [place] ??[address] ?SURGICAL PATHOLOGY & NON-GYNECOLOGIC CYTOPATHOLOGY REPORT ? [...] Multiple potential ? lymph nodes are identified. Photographer'S Assistant sections are submitted in ? cassettes as follows: A1 and A2-uncinate process, perpendicularly sectioned ? and entirely submitted; A3-pancreatic resection margin, perpendicularly ? sectioned and entirely submitted; A4 through A7-cystic lesion, entirely ? submitted, proximal to distal; A8-unremarkable pancreas, including yellow-, ? blue-, and black-inked surfaces; A9 and X75-ovkcicml peripancreatic lymph ? nodes; A11 and H12-ploy with one peripancreatic lymph node, bisected; A13 ? through J13-dvksasiwty around cystic lesion, entirely submitted; B1- ? duodenum margin, enface; B2-bile duct margin, en face; B3 and B4-ampulla ? with nodular lesion (entirely submitted), bile duct, and pancreas; C1 and ? C2-stomach margin, en face; C3-pylorus; C4 and C5-multiple lymph nodes from ? adipose tissue attached to stomach; C6-one lymph node, bisected, from ? adipose tissue attached to stomach; C13 though Z69-fgclijppv of tissue ? around cystic lesion. Also received within the container is a 7.8 x 2 x ? 0.8-cm collapsed previously disrupted gallbladder. The serosal surface is ? purple-barrientos, smooth and glistening. The gallbladder wall has a uniform ? thickness of 0.3 cm. The mucosal surface is mackay and velvety, with focal ? yellow stippling. No distinct mucosal lesions are identified. ? Photographer'S Assistant sections are submitted in cassette D1 and D2. Also received ? loose within the container is a 27 x 9 x 1.4-cm piece of yellow adipose ? tissue, consistent with omentum. The cut surface is yellow-mackay, lobulated ? and unremarkable. Photographer'S Assistant sections are submitted in cassettes E1 and ? E2. ? [facility] 12.05.2013 03:32 pm ? Microscopic: ? Received are slides labeled [id number], Rebel Foreman. ? The submitted Whipple specimen [...] FOR CHRISTINA ISLAS M.D.- 12/11/13 04:09 pm [facility] Tissue specimen (specimen) 12/04/2013 12:33 PM ANGLE ROLL OPERATOR Ann Muhammad DO PATHOLOGY/CYTOLOGY O RDERAHEATH Performing Organization Address City/[facility]/ZIP Co de Phone Number [facility] CLIA# [id number] [address] [facility] [place] [address] * (ABNORMAL) POC GLUCOSE (12/04/2013 11:48 AM ANGLE ROLL OPERATOR) [facility] GLUCOSE POC 167(H) 65 - 99 mg/dL INTERFACE SYSTEM CLIA LICENSE [id number] INTERF YANY SYSTEM Blood specimen (specimen) 12/04/2013 11:48 AM ANGLE ROLL OPERATOR 12/04/2013 11:48 AM ANGLE ROLL OPERATOR Ann Griggs MD POINT OF CARE TESTIN G INTERFACE SYSTEM Refer to clinic/hospital department * (ABNORMAL) POC GLUCOSE (12/04/2013 7:11 AM ANGLE ROLL OPERATOR) Pathologist [facility] GLUCOSE POC 127(H) 65 - 99 mg/dL INTERFACE SYSTEM CLIA LICENSE [id number] INTERF YANY SYSTEM Blood specimen (specimen) 12/04/2013 7:11 AM ANGLE ROLL OPERATOR 12/04/2013 7:11 AM ANGLE ROLL OPERATOR Ann Griggs MD POINT OF CARE [...] at 2100, Routine Given 2013 8:44 PM ANGLE ROLL OPERATOR 12 mg Given 2013 9:05 AM ANGLE ROLL OPERATOR 12 mg Given 12/08/2013 9:11 PM ANGLE ROLL OPERATOR 12 mg bupivacaine PF 0.1 %, morphine PF 0.1 mg/mL in sodium chloride 0.9% 383.3 mL EPIDURAL 500 mL, Epidural, at 5 mL/hr, CONTINUOUS, Starting on Wed12/04/13 at 0745, Until Wed12/08/13 at 0744, #[id number] Rate Verify 12/07/2013 5:55 PM ANGLE ROLL OPERATOR 5 mL/hr Rate Verify 12/07/2013 8:51 AM ANGLE ROLL OPERATOR 5 mL/hr Rate Verify 12/06/2013 1:53 PM ANGLE ROLL OPERATOR 5 mL/hr dextrose 5% - sodium chloride 0.45% infusion IV, at 30 mL/hr, CONTINUOUS, Starting on Wed12/06/13 at 1700, Until Wed12/10/13 at 1209, Routine Rate Verify 2013 4:16 AM ANGLE ROLL OPERATOR 30 mL/h r Rate Verify 2013 1:50 AM ANGLE ROLL OPERATOR 30 mL/hr Rate Verify 12/08/2013 9:34 PM ANGLE ROLL OPERATOR 30 mL/hr diphenhydrAMINE (BENADRYL) injection 12.5 mg 12.5 mg, IV, EVERY 6 HOURS PRN, Starting on Wed12/04/13 at 1359, Until Wed12/10/13 at 1209, Itching, Routine Given 2013 11:35 PM ANGLE ROLL OPERATOR 12.5 mg Given 2013 4:13 AM ANGLE ROLL OPERATOR 12.5 mg Given 12/06/2013 5:47 AM ANGLE ROLL OPERATOR 12.5 mg famotidine PF (PEPCID) 20 mg/2 mL injection 20 mg 20 mg, IV, TWO TIMES DAILY, First dose on Wed12/04/13 at 2100, Until Discontinued, Routine Given 12/10/2013 8:41 AM CDT 20 mg Given 2013 8:44 PM ANGLE ROLL OPERATOR 20 mg Given 2013 9:06 AM ANGLE ROLL OPERATOR 20 mg fentaNYL PF (SUBLIMAZE) 50 mcg/mL injection 25 mcg 25 mcg, IV, POST-PROCEDURE Q 3 MINUTES PRN, Starting on Wed12/04/13 at 0809, Until Wed12/04/13 at 1348, Pain, For pain 2-10, Routine, PACU Given 12/04/2013 12:23 PM ANGLE ROLL OPERATOR 25 mcg gentamicin (GARAMYCIN) 100 mg in sodium chloride 0.9% 100 mL traditional dose IVPB 100 mg, IV, EVERY 8 HOURS, 2 doses, First dose on Wed12/04/13 at 1600, Last dose on Wed12/05/13 at 0000, Routine, Post-op - Floor New Bag 12/04/2013 11:21 PM ANGLE ROLL OPERATOR 100 mg 205 mL/hr New Bag 12/04/2013 4:30 PM ANGLE ROLL OPERATOR 100 mg 205 mL/hr heparin injection 5,000 Units 5,000 Units, subCUT, EVERY 12 HOURS (BlD), First dose (after last reorder) on Wed12/05/13 at 0600, Until Discontinued, Routine Given 12/08/2013 8:56 AM ANGLE ROLL OPERATOR 5,000 Units Abdomen, Right Lower Quadrant Given 12/07/2013 8:30 PM ANGLE ROLL OPERATOR 5,000 Units A bdomen, Left Upper Quadrant Given 12/07/2013 8:47 AM ANGLE ROLL OPERATOR 5,000 Units A bdomen, Left Lower Quadrant heparin injection 5,000 Units 5,000 Units, subCUT, EVERY 8 HOURS EARLY, First dose on Wed12/08/13 at 1700, Until Discontinued, Routine Given 2013 9:06 AM ANGLE ROLL OPERATOR 5,000 Units Abdomen, Left Lower Quadrant Given 2013 12:39 AM ANGLE ROLL OPERATOR 5,000 Units Abdomen, Right Lower Quadrant Given 12/08/2013 5:34 PM ANGLE ROLL OPERATOR 5,000 Units A bdomen, Right Lower Quadrant insulin aspart (NOVOLOG) 100 unit/mL variable dose subCUT, EVERY 4 HOURS, First dose (after last modification) on Wed12/04/13 at 2000, Until Discontinued, Routine Given 12/05/2013 4:09 AM ANGLE ROLL OPERATOR 3 Units Arm, Left Upper Given 12/04/2013 8:17 PM ANGLE ROLL OPERATOR 3 Units Ar m, Right Upper insulin aspart (NOVOLOG) 100 unit/mL variable dose subCUT, EVERY 6 HOURS, First dose (after last modification) on Wed12/05/13 at 1800, Until Discontinued, Routine Given 12/07/2013 11:29 PM ANGLE ROLL OPERATOR 2 Units Arm, Left Given 12/07/2013 5:53 PM ANGLE ROLL OPERATOR 2 Units Ar m, Right Upper insulin aspart (NOVOLOG) 100 unit/mL variable dose subCUT, FOUR TIMES DAILY BEFORE MEALS AND AT BEDTIME, First dose (after last modification) on Wed12/08/13 at 1600, Until Discontinued, Routine Given 12/08/2013 9:19 PM ANGLE ROLL OPERATOR 2 Units Arm, Left Upper Given 12/08/2013 5:53 PM ANGLE ROLL OPERATOR 2 Units Ar m, Right Upper insulin aspart (NOVOLOG) 100 unit/mL variable dose subCUT, FOUR TIMES DAILY WITH MEALS AND AT BEDTIME, First dose (after last modification) on Wed12/09/13 at 0700, Until Discontinued, Routine Given 12/10/2013 8:39 AM CDT 2 Units Arm, Left Upper Given 2013 8:51 PM ANGLE ROLL OPERATOR 2 Units Ar m, Right Upper Given 2013 5:09 PM ANGLE ROLL OPERATOR 2 Units Ar m, Right Upper lactated ringers solution IV, at 110 mL/hr, CONTINUOUS, Starting on Wed12/04/13 at 1400, Until Wed12/06/13 at 1654, Routine Bag Switched 12/06/2013 11:13 AM ANGLE ROLL OPERATOR 110 mL/hr Rate Verify 12/06/2013 7:40 AM ANGLE ROLL OPERATOR 110 mL/hr New Bag 12/06/2013 1:58 AM ANGLE ROLL OPERATOR 110 mL/hr metFORMIN (GLUCOPHAGE) tablet 500 mg 500 mg, Oral, DAILY WITH SUPPER, First dose on Wed12/08/13 at 1700, Until Discontinued Given 2013 5:11 PM ANGLE ROLL OPERATOR 50 0 mg Given 12/08/2013 5:32 PM ANGLE ROLL OPERATOR 500 mg metoprolol (LOPRESSOR) 5 mg/5 mL injection 2.5 mg 2.5 mg, IV, EVERY 6 HOURS, First dose (after last modification) on Marina 12/07/13 at 1200, Until Discontinued, Routine Given 12/08/2013 8:46 AM ANGLE ROLL OPERATOR 2.5 mg Given 12/07/2013 11:28 PM ANGLE ROLL OPERATOR 2.5 mg Given 12/07/2013 5:45 PM ANGLE ROLL OPERATOR 2.5 mg metoprolol tartrate (LOPRESSOR) tablet 25 mg 25 mg, Oral, TWO TIMES DAILY, First dose on Wed12/08/13 at 2100, Until Discontinued, Routine Given 12/10/2013 8:40 AM CDT 25 mg Given 2013 8:44 PM ANGLE ROLL OPERATOR 25 mg Given 2013 9:05 AM ANGLE ROLL OPERATOR 25 mg metroNIDAZOLE (FLAGYL) IVPB 500 mg 500 mg, IV, EVERY 8 HOURS, 2 doses, First dose on Wed12/04/13 at 1500, Last dose on Wed12/04/13 at 2300, Routine, Post-op - Floor New Bag 12/04/2013 10:17 PM ANGLE ROLL OPERATOR 500 mg New Bag 12/04/2013 5:03 PM ANGLE ROLL OPERATOR 500 mg morphine injection 2 mg 2 mg, IV, EVERY 3 HOURS PRN, Starting on Wed12/04/13 at 1359, Until Wed12/08/13 at 0912, Pain, Break-Through, Routine Given 12/08/2013 3:31 AM ANGLE ROLL OPERATOR 2 mg Given 12/07/2013 6:39 AM ANGLE ROLL OPERATOR 2 mg ondansetron (ZOFRAN) 4 mg/2 mL injection 4 mg 4 mg, IV, EVERY 6 HOURS PRN, Starting on Wed12/04/13 at 1359, Until 12/10/13 at 1209, Nausea/Emesis, Routine Given 2013 11:34 PM ANGLE ROLL OPERATOR 4 mg Given 2013 4:12 AM ANGLE ROLL OPERATOR 4 mg oxyCODONE-acetaminophen (PERCOCET) 10-325 mg per tablet 1 Tab 1 Tablet, Oral, EVERY 3 HOURS PRN, Starting on Wed12/08/13 at 0911, Until Wed12/10/13 at 1209, Pain, Severe, Routine Given 2013 9:45 PM ANGLE ROLL OPERATOR 1 Tablet Given 2013 1:07 PM ANGLE ROLL OPERATOR 1 Tablet Given 12/08/2013 9:33 PM ANGLE ROLL OPERATOR 1 Tablet potassium chloride (KLOR-CON,K-TAB) tablet 20 mEq 20 mEq, Oral, ONE TIME ONLY, 1 dose, On Marina 12/07/13 at 0945, Routine Given 12/07/2013 12:24 PM ANGLE ROLL OPERATOR 20 mEq potassium chloride (KLOR-CON,K-TAB) tablet 40 mEq 40 mEq, Oral, ONE TIME ONLY, 1 dose, On 12/09/13 at 1500, Routine Given 2013 4:10 PM ANGLE ROLL OPERATOR 40 mEq potassium Cl 40 mEq in sodium chloride 0.9% 250 mL IVPB 40 mEq, IV, ONE TIME ONLY, 1 dose, On Wed12/06/13 at 2100, at 67.5 mL/hr, Administer over 4 Hours, Routine Restarted 12/07/2013 1:06 AM ANGLE ROLL OPERATOR 40 mEq 37 mL/hr New Bag 12/06/2013 9:01 PM ANGLE ROLL OPERATOR 40 mEq 67.5 mL/hr potassium Cl 40 mEq in sodium chloride 0.9% 250 mL IVPB 40 mEq, IV, ONE TIME ONLY, 1 dose, On 12/09/13 at 1630, at 67.5 mL/hr, Administer over 4 Hours, Routine New Bag 2013 4:56 PM ANGLE ROLL OPERATOR 40 mEq 67.5 mL/hr triamterene-hydrochlorothiazide (MAXZIDE 25) 37.5-25 mg per tablet 1 Tab 1 Tablet, Oral, DAILY, First dose on Wed12/08/13 at 0900, Until Discontinued, Routine Given 12/10/2013 8:40 AM CDT 1 Tablet Given 2013 9:05 AM ANGLE ROLL OPERATOR 1 Tablet Given 12/08/2013 10:05 AM ANGLE ROLL OPERATOR 1 Tablet documented in this encounter Active and Recently Administered Medications Due to Daylight Saving Time, this section may contain times in both ANGLE ROLL OPERATOR and CDT. Scheduled Medication Order 12/08/2013 [...] Wed12/04/13 at 0745, Until Wed12/08/13 at 0744, #[id number] dextrose 5% - sodium chloride 0.45% infusion [...] RN) documented in this encounter Care Teams Flake Miller Wheat And Oats Relationship Specialty Start Date End Date Jareth Lopez MD [address] [place] [address] PCP - General Family Practice 04/11/13 documented as of this encounter
--- OUTSIDE RECORDS SUMMARY | 2024-09-27 23:28 | XMS_ITS | Encounter Summary ---
Author Organization [facility] Address [address] [place] [address] Care Team Providers Care Security Operations Center Operator Name Role Phone Jareth Lopez MD Primary Care Provider Encounter Details Date Type Department Care Team (Late st Contact Info) Description 10/17/2013 Abstract [facility] Surgical Spec [place] [address] [address] Judy Stout, RN [address] [facility] [address] [place] [address] Social History Tobacco Use Types Packs/Day [...] filedocumented in this encounter Care Teams Security Operations Center Operator Relationship Specialty Start Date End Date Jareth Lopez MD [address] [place] [address] PCP - General Family Practice 04/11/13 documented as of this encounter
--- OUTSIDE RECORDS SUMMARY | 2024-09-27 23:28 | XMS_ITS | Encounter Summary ---
Author Organization [facility] Address [address] [place] [address] Care Team Providers Care Automobile Upholsterer Name Role Phone Jareth Lopez MD Primary Care Provider [phone] Encounter Details Date Type Department Care Team (Late st Contact Info) Description 11/07/2013 Abstract [facility] Surgical Spec [place] [address] [facility] [address] [place] [address] Provider, Abstract NO ADDRESS ON [...] on filedocumented in this encounter Care Teams Automobile Upholsterer Relationship Specialty Start Date End Date Jareth Lopez MD [address] [place] [address] PCP - General Family Practice 04/11/13 documented as of this encounter
--- OUTSIDE RECORDS SUMMARY | 2024-09-27 23:28 | XMS_ITS | Encounter Summary ---
Author Organization [facility] Address [address] [place] [address] Care Team Providers Care Industrial Relations Specialist Name Role Phone Jareth Lopez MD Primary Care Provider [phone] Reason for Visit * Auth/Cert - Closed Specialty Diagnoses / Procedures Referred By Contac t Referred To Contact General Surgery Procedures [facility] [address] [place] [address] Referral ID Status Reason Start Date Expiration Date Visits Re quested Visits Authorized [id number] Closed 1 1 Encounter Details Date Type Department Care Team (Late st Contact Info) Description 12/04/2013 7:23 AM LENGTH CONTROL TESTER Anesthesia Event [facility] Operating Room [address] [place] [address] Jamar Arora MD [address] [place] [address] Bria Jacobson CRNA [address] [place] [address] Anesthesia Record Procedure Summary Procedure Name Responsible Anesthesiologist Anesthesia Start Time Anesthesia Stop Time VAIL (Abdomen) Jamar Arora MD 12/04/13 0723 1151 [...] Tube Present on Admission : No; Type: Love sump; Size: 14 Fr; Location: left nostril [...] ml Jamar Arora MD 12/04/2013 12:23 PM TH CONTROL TESTER * Anesthesia Preprocedure Evaluation - Jamar Arora [...] to blood products. Plan discussed with Nurse Apprentice/Lineman. Post-op Pain Control Plan to use Epidural and IV or IM medication for post-op pain control. TH CONTROL TESTER documented in this encounter Plan of Treatment [...] Wed12/04/13 at 0745, Until Wed12/08/13 at 0744, #[id number] Rate Verify 12/07/2013 5:55 PM LENGTH CONTROL TESTER 5 mL/hr Rate Verify 12/07/2013 8:51 AM LENGTH CONTROL TESTER 5 mL/hr Rate Verify 12/06/2013 1:53 PM LENGTH CONTROL TESTER 5 mL/hr bupivacaine PF 0.25 % (SENSORCAINE MPF) injection INTRA-PROCEDURE PRN, Starting on Wed12/04/13 at 1113, Until Wed12/04/13 at 1151, Routine, Anesthesia Intra-op Given 12/04/2013 11:13 AM LENGTH CONTROL TESTER 5 mL clindamycin (CLEOCIN) IVPB 600 mg 600 mg, IV, PRE-PROCEDURE ONCE, 1 dose, Starting on Wed12/04/13 at 0627, Until Wed12/04/13 at 0723, Routine, Pre-op Given 12/04/2013 7:23 AM LENGTH CONTROL TESTER 600 mg dexamethasone (DECADRON) injection INTRA-PROCEDURE PRN, Starting on Wed12/04/13 at 0816, Until Wed12/04/13 at 1151, Routine, Anesthesia Intra-op Given 12/04/2013 8:16 AM LENGTH CONTROL TESTER 8 mg famotidine PF (PEPCID) 20 mg/2 mL injection INTRA-PROCEDURE PRN, Starting on Wed12/04/13 at 0817, Until Wed12/04/13 at 1151, Routine, Anesthesia Intra-op Given 12/04/2013 8:17 AM LENGTH CONTROL TESTER 20 mg fentaNYL PF (SUBLIMAZE) 50 mcg/mL injection INTRA-PROCEDURE PRN, Starting on Wed12/04/13 at 0731, Until Wed12/04/13 at 1151, Routine, Anesthesia Intra-op Given 12/04/2013 10:54 AM LENGTH CONTROL TESTER 100 mcg Given 12/04/2013 9:43 AM LENGTH CONTROL TESTER 50 mcg Given 12/04/2013 9:20 AM LENGTH CONTROL TESTER 100 mcg gentamicin in saline (iso-osm) (GARAMYCIN) 120 mg/100 mL traditional dose IVPB 120 mg 120 mg, IV, PRE-PROCEDURE ONCE, 1 dose, Starting on Wed12/04/13 at 0629, Until Wed12/04/13 at 0740, Routine Given 12/04/2013 7:40 AM LENGTH CONTROL TESTER 120 mg glycopyrrolate (ROBINUL) injection INTRA-PROCEDURE PRN, Starting on Wed12/04/13 at 1110, Until Wed12/04/13 at 1151, Routine, Anesthesia Intra-op Given 12/04/2013 11:10 AM LENGTH CONTROL TESTER 0.8 mg lactated ringers solution IV, at 150 mL/hr, PRE-PROCEDURE CONTINUOUS, Starting on Wed12/04/13 at 0630, Until Wed12/04/13 at 1348, Routine New Bag 12/04/2013 8:40 AM LENGTH CONTROL TESTER New Bag 12/04/2013 7:05 AM LENGTH CONTROL TESTER lidocaine 2 % (XYLOCAINE) injection INTRA-PROCEDURE PRN, Starting on Wed12/04/13 at 0731, Until Wed12/04/13 at 1151, Other (See Comment), Routine, Anesthesia Intra-op Given 12/04/2013 7:31 AM LENGTH CONTROL TESTER 60 mg morphine 10 mg/mL syringe INTRA-PROCEDURE PRN, Starting on Wed12/04/13 at 0852, Until Wed12/04/13 at 1151, Routine, Anesthesia Intra-op Given 12/04/2013 8:52 AM LENGTH CONTROL TESTER 1 mg morphine PF (ASTRAMORPH,DURAMORPH) 1 mg/mL injection INTRA-PROCEDURE PRN, Starting on Wed12/04/13 at 0920, Until Wed12/04/13 at 1151, Routine, Anesthesia Intra-op Given 12/04/2013 9:20 AM LENGTH CONTROL TESTER 3 mg neostigmine (PROSTIGMINE) 1 mg/mL injection INTRA-PROCEDURE PRN, Starting on Wed12/04/13 at 1110, Until Wed12/04/13 at 1151, Routine, Anesthesia Intra-op Given 12/04/2013 11:10 AM LENGTH CONTROL TESTER 5 mg ondansetron (ZOFRAN) 4 mg/2 mL injection INTRA-PROCEDURE PRN, Starting on Wed12/04/13 at 0816, Until Wed12/04/13 at 1151, Nausea/Emesis, Routine, Anesthesia Intra-op Given 12/04/2013 10:42 AM LENGTH CONTROL TESTER 4 mg Given 12/04/2013 8:16 AM LENGTH CONTROL TESTER 4 mg phenylephrine (DEA-SYNEPHRINE) 10 mg/mL injection INTRA-PROCEDURE PRN, Starting on Wed12/04/13 at 0805, Until Wed12/04/13 at 1151, Routine, Anesthesia Intra-op Given 12/04/2013 9:10 AM LENGTH CONTROL TESTER 100 mcg Given 12/04/2013 8:20 AM LENGTH CONTROL TESTER 100 mcg Given 12/04/2013 8:05 AM LENGTH CONTROL TESTER 100 mcg propofol (DIPRIVAN) injection INTRA-PROCEDURE PRN, Starting on Wed12/04/13 at 0731, Until Wed12/04/13 at 1151, Anesthesia Intra-op Given 12/04/2013 7:31 AM LENGTH CONTROL TESTER 200 mg rocuronium (ZEMURON) injection INTRA-PROCEDURE PRN, Starting on Wed12/04/13 at 0731, Until Wed12/04/13 at 1151, Routine, Anesthesia Intra-op Given 12/04/2013 10:10 AM LENGTH CONTROL TESTER 10 mg Given 12/04/2013 8:55 AM LENGTH CONTROL TESTER 10 mg Given 12/04/2013 7:31 AM LENGTH CONTROL TESTER 50 mg scopolamine (TRANSDERM-SCOP) 1.5 mg transdermal patch 1.5 mg 1.5 mg, Transdermal, ONE TIME ONLY, 1 dose, On Wed12/04/13 at 0930, Routine Given 12/04/2013 9:39 AM LENGTH CONTROL TESTER 1.5 mg documented in this encounter Care Teams Industrial Relations Specialist Relationship Specialty Start Date End Date Jareth Lopez MD [address] [place] [address] PCP - General Family Practice 04/11/13 documented as of this encounter
--- OUTSIDE RECORDS SUMMARY | 2024-09-27 23:28 | XMS_ITS | Encounter Summary ---
Author Organization [facility] Address [address] [place] [address] Care Team Providers Care Steel Placer Name Role Phone Jareth Lopez MD Primary Care Provider [phone] Encounter Details Date Type Department Care Team (Late st Contact Info) Description 10/13/2013 Orders Only [facility] Surgical Spec [place] [address] [place] [address] Andi Marley MD [address] [place] [address] Social History Tobacco Use Types [...] on filedocumented in this encounter Care Teams Steel Placer Relationship Specialty Start Date End Date Jareth Lopez MD [address] [place] [address] PCP - General Family Practice 04/11/13 documented as of this encounter
--- OUTSIDE RECORDS SUMMARY | 2024-09-27 23:28 | XMS_ITS | Encounter Summary ---
Author Organization [facility] Address [address] [place] [address] Care Team Providers Care Furniture Inspector Name Role Phone Jareth Lopez MD Primary Care Provider Reason for Visit * Reason Comments Follow Up Encounter Details Date Type Department Care Team (Late st Contact Info) Description 10/13/2013 10:00 AM CONTINUOUS PROCESS TANNER ROTARY DRUM Office Visit [facility] Surgical Spec [place] [address] [place] [address] Andi Marley MD [address] [place] [address] Pancreas cyst (Primary Dx) Social [...] Comments Blood Pressure 144/81 10/13/2013 9:56 AM CONTINUOUS PROCESS TANNER ROTARY DRUM Pulse 105 10/13/2013 9:56 AM CONTINUOUS PROCESS TANNER ROTARY DRUM Temperature - - Respiratory Rate 20 10/13/2013 9:56 AM CONTINUOUS PROCESS TANNER ROTARY DRUM Oxygen Saturation - - Inhaled Oxygen Concentration - - Weight 85.7 kg (189 lb) 10/13/2013 9:56 AM CONTINUOUS PROCESS TANNER ROTARY DRUM Height 165.1 cm (5' 5 ) 10/13/2013 9:56 AM CONTINUOUS PROCESS TANNER ROTARY DRUM Body Mass Index 31.45 10/13/2013 9:56 AM CONTINUOUS PROCESS TANNER ROTARY DRUM documented in this encounter Progress Notes * [...] the procedure and is willing to proceed. INUOUS PROCESS TANNER ROTARY DRUM documented in this encounter Plan of Treatment Not on file documented as of this encounter Visit Diagnoses Diagnosis Pancreas cyst- Primary Cyst and pseudocyst of pancreas documented in this encounter Care Teams Furniture Inspector Relationship Specialty Start Date End Date Jareth Lopez MD [address] [place] [address] PCP - General Family Practice 04/11/13 documented as of this encounter
--- OUTSIDE RECORDS SUMMARY | 2024-09-27 23:28 | XMS_ITS | Encounter Summary ---
Author Organization [facility] Address [address] [place] [address] Care Team Providers Care Dietary Aide Name Role Phone Jareth Lopez MD Primary Care Provider [phone] Encounter Details Date Type Department Care Team (Late st Contact Info) Description 09/20/2013 Orders Only [facility] Surgical Spec [place] [address] [place] [address] Provider, Abstract NO ADDRESS ON FILE Social [...] Provider PATHOLOGY/CYTOLOGY O RDERABLES Performing Organization Address [facility]/ZIP Co de Phone Number [facility] [employer] [facility] CLIA# [id number] [address] [place] [address] * PATHOLOGY REPORT (09/08/2013) Abstract Provider PATHOLOGY/CYTOLOGY O RDERABLES Performing Organization Address City/[facility]/ZIP Co de Phone Number [facility] CLIA# [id number] [address] [place], [place] [address] * PATHOLOGY REPORT (09/08/2013) Abstract Provider PATHOLOGY/CYTOLOGY O RDERABLES [facility]# [id number] [address] [place] [address] documented in this encounter Visit Diagnoses Not on filedocumented in this encounter Care Teams Dietary Aide Relationship Specialty Start Date End Date Jareth Lopez MD [address] [place] [address] PCP - General Family Practice 04/11/13 documented as of this encounter
--- OUTSIDE RECORDS SUMMARY | 2024-09-27 23:28 | XMS_ITS | Encounter Summary ---
Author Organization [facility] Address [address] [place] [address] Care Team Providers Care Applications Sales Consultant Name Role Phone Jareth Lopez MD Primary Care Provider [phone] Encounter Details Date Type Department Care Team (Late st Contact Info) Description 04/20/2013 Abstract [facility] Dev Technical Mgr [address] [address] Jareth Lopez MD [address] [place] [address] Social History Tobacco Use Types [...] on filedocumented in this encounter Care Teams Applications Sales Consultant Relationship Specialty Start Date End Date Jareth Lopez MD [address] [place] [address] PCP - General Family Practice 04/11/13 documented as of this encounter
--- OUTSIDE RECORDS SUMMARY | 2024-09-27 23:28 | XMS_ITS | Encounter Summary ---
Author Organization [facility] Address [address] [place] [address] Care Team Providers Care Shopping Centre Manager Name Role Phone Jareth Lopez MD Primary Care Provider [phone] Reason for Visit * Auth/Cert - Closed Specialty Diagnoses / Procedures Referred By Vasquez gibbs Referred To Contact General Surgery Procedures [facility] Or [address] [place] [address] Referral ID Status Reason Start Date Expiration Date Visits Re quested Visits Authorized [id number] Closed 1 1 Encounter Details Date Type Department Care Team (Late st Contact Info) Description 12/04/2013 7:15 AM CLERICAL SUPERVISOR - 12/04/2013 12:45 PM CLERICAL SUPERVISOR Surgery [facility] Operating Room [address] [place] [address] Ann Griggs MD [address] [facility] [address] [place] [address] [facility] Surgery Details Date/Time Status Location OR Service Patient Class Case Class Case Type Trauma Case? 12/04/2013 7:15 AM Posted [facility] OR General Surgery Surgery Admit Elective No Panel 1 Procedure LRB Anes Op Region Wound Class Comments [facility] N/A General Abdomen Clean Contaminated-I I Surgeon Surgeon Role Service Panel Ann Griggs MD Primary General Surgery 1 Case Notes JOSE RAFAEL, [id number] YULIANA Gibbs [id number] documented in this encounter Social History Tobacco [...] Comments Blood Pressure 134/62 12/04/2013 12:30 PM CLERICAL SUPERVISOR Pulse 84 12/04/2013 6:21 AM CLERICAL SUPERVISOR Temperature 37 ??C (98.6 ??F) 12/04/2013 11:45 AM CLERICAL SUPERVISOR Respiratory Rate 16 12/04/2013 12:30 PM CLERICAL SUPERVISOR Oxygen Saturation 97% 12/04/2013 12:30 PM CLERICAL SUPERVISOR Inhaled Oxygen Concentration - - Weight 88 kg (194 lb) 12/04/2013 6:21 AM CLERICAL SUPERVISOR Height 163.8 cm (5' 4.5 ) 11/27/2013 3:20 PM CLERICAL SUPERVISOR Body Mass Index 32.95 11/27/2013 3:20 PM CLERICAL SUPERVISOR documented in this encounter Discharge Summaries * [...] Attending Physician: Dr. Ann Griggs Procedures: Procedure(s): [facility] Course: underwent [place] and was d/c'd POD 6 Discharge Condition: [...] to home 2. Follow-up two weeks Office- [phone] 3. May shower without restrictions. No tub [...] not uncommon. The patient may take any kkxl-djn-ghgpwbu medication(s) that have worked previously to correct [...] to call the office for postoperative appointment ([phone]). The patient will need to be seen [...] by mouth daily. L GASSERI/B BIFIDUM/B LONGUM ([facility] [facility]) Take by mouth. oxyCODONE-acetaminophen (PERCOCET) 5-325 [...] 2.8- replace with iv and po kcl ICAL SUPERVISOR * Ann Griggs MD - 2013 7:29 AM CST Min nausea, no emesis, + BM AVSS abd soft, nd, inc c/d/i Drains serosang Wbc 10 POD 5 Inc diet OOB Likely home w/in the next day or two Ayaka ICAL SUPERVISOR * Jillian Gonzalez MD - 12/08/2013 11:[address] [facility] Hospitalist Progress Note Admit Date: 12/04/2013 Date [...] the following: . Jillian Gonzalez MD MD [facility] [phone] ICAL SUPERVISOR * Ann Griggs MD - 12/08/2013 8:00 AM CST C/o RUQ pain this am relieved with +flatus/BM Afeb, VSS abd soft, nd Inc c/d/i Drains serosang POD 4 Trial full liquids OOB D/c epidural, d/c lorenzo 6 hrs after ICAL SUPERVISOR * Jamar Syed MD - 12/07/2013 5:56 PM CST Patient alert and up in chair. Epidural site hurts when laying in bed but not when up walking around. This was checked by Noman WOODS earlier in the day. No erythema. Pain control good. Wiggles feet well. Itching no longer bothersome. Continue epidural till tomorrow. ICAL SUPERVISOR * Jillian Gonzalez MD - 12/07/2013 10:31 [...] now as she is npo, cont SSI ICAL SUPERVISOR * Ann Griggs MD - 12/07/2013 6:44 AM CST BS better controlled Pain is a 6 of 10 Afeb, VSS abd soft, nd NGT bilious Drains serosang POD 3 Clamping trial NGT OOB Cont epidural another day Cont lorenzo / epirual ICAL SUPERVISOR * Jillian Gonzalez MD - 12/06/2013 8:16 PM CST [facility] Hospitalist Progress Note Admit Date: 12/04/2013 [...] the following: . Jillian Gonzalez MD MD [facility] [phone] ICAL SUPERVISOR * Yi Mckee RN - 12/05/2013 3:17 PM CST Undress and Assess performed by ADRIAN stallworth and does not have skin breakdown. Wound care consult was notinitiated. Abdominal surgical sites covered by dressing; c/d/i. ICAL SUPERVISOR * Maile West MD - 12/05/2013 11:06 AM CST 12/05/2013 11:06 AM Acute Pain Service Name: Rebel Schultz Age: 62 y.o. Sex: female CSN: [id number] POD # 1. Rebel is doing well, [...] po and NGT out.. Maile West MD ICAL SUPERVISOR * Ann Griggs MD - 12/05/2013 11:03 AM CST No issues o/n AVSS u/o adequate abd soft, nd Inc c/d/i Drains serosang hgb stable POD 1 OOICU to 4th floor surgery only, my service hospitalist c/s Cont drains/NGT/lorenzo/epidural Lorenzo needed 2/2 epidural Ayaka ICAL SUPERVISOR * Ann Muhammad DO - 12/05/2013 7:52 AM CST [facility] Transfer Note 12/05/2013 7:52 AM Patient transferring to Medicine Physician /PA/ ADVERTISING MANAGER Communication: Ann Muhammad DO to Physician Date/Time: 12/05/13 at 0810 Is the accepting physician aware that patient needs to be seen on day of transfer? yes (regarding patient's not seen by [facility] attending prior to transfer) Family Member Communication: Physician to patient; Relationship to patient: patient Transfer orders have been reviewed with the RN and the team caring for the patient: yes Any special needs for this patient? no If yes, describe: Attending Physician changed to accepting Hospitalist, if applicable: N/A ICAL SUPERVISOR Ann Anaya DO - 12/05/2013 7:31 AM [...] No results found for this basename: PHARTERIAL, XBY2EPE, PO2ART, CQE4EJQ, BASEEXCESS, SO2ABG, FOHBABG Central VBG: No results found for this basename: PHMIXEDVEN, NY1IHQDQTU, JUR1TDVXMH, UCO6NTONJ, FX9RERL Lactic acid: No results found for this basename: LACTATE Radiology: n/a ICAL SUPERVISOR * Clara Diaz, [place] - 12/04/2013 2:00 PM CST Undress and Assess performed by: Clara Diaz RN & Celia Mcgrath RN does not have skin breakdown. Location of breakdown: Description of breakdown: Wound care consult was not initiated. ICAL SUPERVISOR documented in this encounter H&P Notes * [...] No results found for this basename: PHARTERIAL, IFE6NBM, PO2ART, HRN9EKI, BASEEXCESS, SO2ABG, FOHBABG Central VBG: No results found for this basename: PHMIXEDVEN, VM2DCDEVGY, STT7TEDHVM, AQD5SVFGG, EW8UIYJ Lactic acid: No results found for this [...] above with Fellow, who is in agreement ICAL SUPERVISOR * Ann Griggs MD - 12/04/2013 6:40 [...] the procedure and is willing to proceed. ICAL SUPERVISOR documented in this encounter Consult Notes * Saima Tian RN - 2013 4:42 PM CSTAssociated Order(s): IP CONSULT TO IV TEAM IV CONSULT: Request for IV consult. Reviewed electronic record and completed a vascular assessment. PIV startedand documented in [facility]. PIV is appropriate at this time. Bed in low position,HOB up 35 degrees,?? side rails up X2. Safety check completed. RN notified. ?? ICAL SUPERVISOR * Jillian Gonzalez MD - 12/05/2013 12:23 PM CSTAssociated Order(s): IP CONSULT TO INTERNAL MEDICINE [facility] Consultation Consult requested by Ann Humphreys [...] WHIPPLE performed by Ann Griggs MD at [facility] OR MAIN Current Medications: Current Facility-Administered [...] wheezing Cardiac: No CP, SOB, History of AK or angina GI: abd pain controlled : [...] 11/27/2013 3:00 PM Thank you for consulting [facility] for this interesting case. I have taken the liberty of writing orders consistent with my recommendations. We will gladly follow the patient throughout their stay. Jillian Gonzalez MD ICAL SUPERVISOR documented in this encounter OR Notes * Operative Report - Ayaka, Ann Wells MD - 12/22/2013 7:01 PM CDT [place], [place] [address] Operative Report CSN: [id number] DATE OF SERVICE: 12/04/2013 SURGEON Ann Griggs [...] recovery room in stable condition. RLN:MEDQ DID: [id number] Dictated by: Ann Griggs M.D. * Operative Report - Ann Griggs MD - 12/20/2013 11:13 AM CDT [place], [place] [address] Operative Report CSN: [id number] DATE OF SERVICE: 12/04/2013 SURGEON Ann Griggs [...] recovery room in stable condition. RLN:MEDQ DID: [id number] Dictated by: Ann Griggs M.D. * OR Anesthesia - Jamar Syed MD - 12/08/2013 9:12 AM CST 12/08/2013 9:12 AM Acute Pain Service Name: Rebel Schultz Age: 63 y.o. Sex: female CSN: [id number] POD # 4 Epidural Infusing Pain scale [...] Acute Pain Service may be contacted through [employer] phones [phone] during daytime resourcehours, or pager [phone] at any time. If there is no answer within 20 minutes, call [phone] for the Anesthesiologist cotton tier. Jamar Syed MD ICAL SUPERVISOR * OR Anesthesia - Joe Sanchez PA [...] (*) 65 - 99 mg/dL CLIA LICENSE [id number] POC GLUCOSE Result Value Range POC GLUCOSE 154 (*) 65 - 99 mg/dL CLIA LICENSE [id number] POC GLUCOSE Result Value Range POC GLUCOSE 155 (*) 65 - 99 mg/dL CLIA LICENSE [id number] POC GLUCOSE Result Value Range POC GLUCOSE 137 (*) 65 - 99 mg/dL CLIA LICENSE [id number] Continue epidural at 5 cc/hr Discussed the [...] Schultz Age: 62 y.o. Sex: female CSN: [id number] POD # 2 Epidural Infusing at 5 [...] is out and tolerating PO. Celia Diaz, SIGN INSTALLER Although patient is having some itching, but is happy with taking the benadryl. She is alert and with good pain control. Will leave epidural at current rate ICAL SUPERVISOR * Anesthesia Handoff - Bria Jacobson CRNA [...] 11:45 AM) 11:51 AM Bria Jacobson CRNA ICAL SUPERVISOR * OR Anesthesia - Maile West MD [...] mL as BP tolerates. Maile West MD ICAL SUPERVISOR documented in this encounter Miscellaneous Notes * Query - TannerShannon Russell - 12/12/2013 7:20 AM CDT Please respond within 48 hours. Thank you! The authenticated query note is part of the Legal Health Record Patient Name: Rebel Schultz Admission Date: 12/04/2013 [facility] #: [id number] Dear Doctor, Note: To answer the following question(s), please click F2 in front of the highlighted area(s). Question: Because bedside physician/ADVERTISING MANAGER/PA must provide clarification of pathological findings priorto [...] this coding query please contact me at [email or web address] or [phone] * Care Plan - Clara Doty RN - 12/10/2013 4:40 AM CDT Problem: General Plan of Care (Adult, Obstetrics) Goal: Individualization/Patient-Specific Goal (Adult, Obstetrics) The patient and/or their construction sales representative will achieve their patient-specific goals related [...] Goal (Adult, Obstetrics) The patient and/or their construction sales representative will achieve their patient-specific goals related [...] pain medication once and she took Percocet. ICAL SUPERVISOR * Care Plan - Clara Doty RN - 2013 5:21 AM CST Problem: General Plan of Care (Adult, Obstetrics) Goal: Individualization/Patient-Specific Goal (Adult, Obstetrics) The patient and/or their construction sales representative will achieve their patient-specific goals related [...] other issues overnight. Call light within reach. ICAL SUPERVISOR * Care Plan - Samantha Perez RN - 12/08/2013 4:07 PM CST Problem: General Plan of Care (Adult, Obstetrics) Goal: Plan of Care Review (Adult, Obstetrics) The patient and/or their construction sales representative will communicate an understanding of their [...] sign on door, stand-by assist when ambulating. ICAL SUPERVISOR * Care Plan - Carolyn Lei, VALENCIA - 12/08/2013 10:30 AM CST Nutrition diet [...] intake, wts, labs, skin and f/u q4days/prn ICAL SUPERVISOR * Care Plan - Roddy Marley RN - 12/08/2013 5:49 AM CST Problem: General Plan of Care (Adult, Obstetrics) Goal: Individualization/Patient-Specific Goal (Adult, Obstetrics) The patient and/or their construction sales representative will achieve their patient-specific goals related [...] bed, and Preventing Falls education handout reviewed. ICAL SUPERVISOR * Care Plan - Brea Galan RN - 12/07/2013 5:49 PM CST Problem: General Plan of Care (Adult, Obstetrics) Goal: Individualization/Patient-Specific Goal (Adult, Obstetrics) The patient and/or their construction sales representative will achieve their patient-specific goals related [...] in good spirits. Will continue to monitor. ICAL SUPERVISOR * Care Plan - Roddy Marley RN - 12/07/2013 8:15 AM CST Problem: General Plan of Care (Adult, Obstetrics) Goal: Individualization/Patient-Specific Goal (Adult, Obstetrics) The patient and/or their construction sales representative will achieve their patient-specific goals related [...] Call light and personal items within reach. ICAL SUPERVISOR * Care Plan - Brea Galan RN - 12/06/2013 5:55 PM CST Problem: General Plan of Care (Adult, Obstetrics) Goal: Individualization/Patient-Specific Goal (Adult, Obstetrics) The patient and/or their construction sales representative will achieve their patient-specific goals related [...] has increased ambulation. Will continue to monitor. ICAL SUPERVISOR * Care Plan - Anupam Marley RN [...] to follow and assist asneeded. Anupam Marley [employer] Care Management [id number] ICAL SUPERVISOR * Care Plan - aKy Hollingsworth RN - 12/06/2013 6:11 AM CST Problem: General Plan of Care (Adult, Obstetrics) Goal: Individualization/Patient-Specific Goal (Adult, Obstetrics) The patient and/or their construction sales representative will achieve their patient-specific goals related [...] get up later this AM and walk. ICAL SUPERVISOR * Care Plan - Yi Mckee RN - 12/05/2013 4:36 PM CST Problem: General Plan of Care (Adult, Obstetrics) Goal: Individualization/Patient-Specific Goal (Adult, Obstetrics) The patient and/or their construction sales representative will achieve their patient-specific goals related [...] bed, and Preventing Falls education handout reviewed. ICAL SUPERVISOR * Care Plan - Federico Byrd RN - 12/05/2013 1:53 PM CST Pt. Arrived to room 662 from 490 stable and un changed. Per Dr. Griggs's note pt. Trans. To room 44, report called to Adrian STALLWORTH. ICAL SUPERVISOR * Care Plan - Sidney Tatum RN [...] Monitoring I&O's and lab values. Monitoring temps. ICAL SUPERVISOR * Care Plan - Clara Diaz RN [...] DEC. Pt drowsy but awakens to voice. ICAL SUPERVISOR * Care Plan - Nevaeh Bazzi RN [...] perioperative experience Outcome Met: Pt/family understands instructions ICAL SUPERVISOR documented in this encounter Plan of Treatment Not on file documented as of this encounter Procedures Procedure Name Priority Date/Time Associated Diagnosis Comments TELEMETRY REPORT 12/19/2013 5:32 PM CDT POC GLUCOSE Routine 12/10/2013 8:34 AM CDT BASIC METABOLIC PANEL Routine 12/10/2013 4:50 AM CDT POC GLUCOSE Routine 2013 8:50 PM CLERICAL SUPERVISOR POC GLUCOSE Routine 2013 5:08 PM CLERICAL SUPERVISOR POC GLUCOSE Routine 2013 2:04 PM CLERICAL SUPERVISOR POC GLUCOSE Routine 2013 9:37 AM CLERICAL SUPERVISOR CBC WITH DIFFERENTIAL Routine 2013 4:37 AM CLERICAL SUPERVISOR BASIC METABOLIC PANEL Routine 2013 4:37 AM CLERICAL SUPERVISOR POC GLUCOSE Routine 12/08/2013 9:18 PM CLERICAL SUPERVISOR POC GLUCOSE Routine 12/08/2013 5:51 PM CLERICAL SUPERVISOR POC GLUCOSE Routine 12/08/2013 1:43 PM CLERICAL SUPERVISOR CBC WITH DIFFERENTIAL Routine 12/08/2013 11:20 AM CLERICAL SUPERVISOR POC GLUCOSE Routine 12/08/2013 5:29 AM CLERICAL SUPERVISOR POC GLUCOSE Routine 12/07/2013 11:24 PM CLERICAL SUPERVISOR POC GLUCOSE Routine 12/07/2013 5:52 PM CLERICAL SUPERVISOR POC GLUCOSE Routine 12/07/2013 12:44 PM CLERICAL SUPERVISOR CBC WITH DIFFERENTIAL Routine 12/07/2013 6:12 AM CLERICAL SUPERVISOR COMPREHENSIVE METABOLIC PANEL Routine 12/07/2013 6:12 AM CLERICAL SUPERVISOR POC GLUCOSE Routine 12/07/2013 5:44 AM CLERICAL SUPERVISOR POC GLUCOSE Routine 12/07/2013 12:50 AM CLERICAL SUPERVISOR POC GLUCOSE Routine 12/06/2013 6:47 PM CLERICAL SUPERVISOR POC GLUCOSE Routine 12/06/2013 12:12 PM CLERICAL SUPERVISOR CBC WITH DIFFERENTIAL Routine 12/06/2013 5:25 AM CLERICAL SUPERVISOR COMPREHENSIVE METABOLIC PANEL Routine 12/06/2013 5:25 AM CLERICAL SUPERVISOR POC GLUCOSE Routine 12/06/2013 5:11 AM CLERICAL SUPERVISOR POC GLUCOSE Routine 12/05/2013 11:13 PM CLERICAL SUPERVISOR POC GLUCOSE Routine 12/05/2013 5:09 PM CLERICAL SUPERVISOR POC GLUCOSE Routine 12/05/2013 1:01 PM CLERICAL SUPERVISOR POC GLUCOSE Routine 12/05/2013 9:10 AM CLERICAL SUPERVISOR CBC WITH DIFFERENTIAL Routine 12/05/2013 4:15 AM CLERICAL SUPERVISOR COMPREHENSIVE METABOLIC PANEL Routine 12/05/2013 4:15 AM CLERICAL SUPERVISOR POC GLUCOSE Routine 12/05/2013 4:06 AM CLERICAL SUPERVISOR POC GLUCOSE Routine 12/04/2013 11:16 PM CLERICAL SUPERVISOR POC GLUCOSE Routine 12/04/2013 8:15 PM CLERICAL SUPERVISOR POC GLUCOSE Routine 12/04/2013 5:57 PM CLERICAL SUPERVISOR PATHOLOGY Routine 12/04/2013 12:33 PM CLERICAL SUPERVISOR POC GLUCOSE Routine 12/04/2013 11:48 AM CLERICAL SUPERVISOR POC GLUCOSE Routine 12/04/2013 7:11 AM CLERICAL SUPERVISOR MACON 12/04/2013 6:55 AM CLERICAL SUPERVISOR Case Notes JOSE RAFAEL, [id number] YULAINA Gibbs [id number] documented in this encounter Results * TELEMETRY REPORT (12/19/2013 5:32 PM CDT) Provider Scanning ECG ORDERABLES * (ABNORMAL) POC GLUCOSE (12/10/2013 8:34 AM CDT) GLUCOSE POC 171(H) 65 - 99 mg/dL INTERFACE SYSTEM CLIA LICENSE [id number] INTERF YANY SYSTEM Blood specimen (specimen) 12/10/2013 8:34 AM CDT 12/10/2013 8:34 AM CDT Ann Griggs MD POINT OF CARE TESTIN G INTERFACE SYSTEM Refer to clinic/hospital department * (ABNORMAL) BASIC METABOLIC PANEL (12/10/2013 4:50 AM CDT) SODIUM 138 135 - 145 mmol/L [facility] LABORATORY SERVICES - [facility] POTASSIUM 3.7 3.5 - 4.9 mmol/L [facility]ORY [facility] - [facility] CHLORIDE 100 96 - 108 mmol/L [facility]ATORY SERVICES - [facility] CO2 28 22 - 30 mmol/L [facility] SERVICES - [facility] CALCIUM 9.1 8.6 - 10.2 mg/dL [facility]ATORY SERVICES [facility] BUN 11 6 - 20 mg/dL [facility] CREATININE 0.73 0.51 - 0.95 mg/dL [facility] GLUCOSE 149(H) 65 - 99 mg/dL [facility] GFR, >60 >=60 mL/min/1. 7 sq meter [facility] - [facility] GFR >60 >=60 mL/min/1. 7 sq meter [facility] Comment: GFR is calculated using the IDMS-Traceable Modification of Diet in Renal Disease (MDRD) Study formula and is only valid for patients 18 years or older. Further interpretative information is available in the Laboratory Services Policy Manual on the [facility] Intranet at: [email or web address]/ Blood specimen (specimen) 12/10/2013 4:50 AM CDT 12/10/2013 5:45 AM CDT Jillian Gonzalez MD CHEMISTRY ORDERABLES [facility] CLIA# [id number] [address] [place], [place] [address] * (ABNORMAL) POC GLUCOSE (2013 8:50 PM CLERICAL SUPERVISOR) GLUCOSE POC 161(H) 65 - 99 mg/dL INTERFACE SYSTEM CLIA LICENSE [id number] INTERF YANY SYSTEM Blood specimen (specimen) 2013 8:50 PM CLERICAL SUPERVISOR 2013 8:50 PM CLERICAL SUPERVISOR Ann Griggs MD POINT OF CARE TESTFREDI Carrasco Performing Organization Address City/[facility] Co de Phone Number INTERFACE SYSTEM Refer to clinic/hospital department * (ABNORMAL) POC GLUCOSE (2013 5:08 PM CLERICAL SUPERVISOR) GLUCOSE POC 169(H) 65 - 99 mg/dL INTERFACE SYSTEM CLIA LICENSE [id number] INTERF YANY SYSTEM Blood specimen (specimen) 2013 5:08 PM CLERICAL SUPERVISOR 2013 5:08 PM CLERICAL SUPERVISOR Ann Griggs MD POINT OF CARE TESTFREDI Carrasco Performing Organization Address City/[facility]/ZIP Co de Phone Number INTERFACE SYSTEM Refer to clinic/hospital department * (ABNORMAL) POC GLUCOSE (2013 2:04 PM CLERICAL SUPERVISOR) GLUCOSE POC 160(H) 65 - 99 mg/dL INTERFACE SYSTEM CLIA LICENSE [id number] INTERF YANY SYSTEM Blood specimen (specimen) 2013 2:04 PM CLERICAL SUPERVISOR 2013 2:04 PM CLERICAL SUPERVISOR Ann Griggs MD POINT OF CARE TESTFREDI Carrasco INTERFACE SYSTEM Refer to clinic/hospital department * (ABNORMAL) POC GLUCOSE (2013 9:37 AM CLERICAL SUPERVISOR) GLUCOSE POC 144(H) 65 - 99 mg/dL INTERFACE SYSTEM CLIA LICENSE [id number] INTERF YANY SYSTEM Blood specimen (specimen) 2013 9:37 AM CLERICAL SUPERVISOR 2013 9:37 AM CLERICAL SUPERVISOR Ann Griggs MD POINT OF CARE TESTIN G INTERFACE SYSTEM Refer to clinic/hospital department * (ABNORMAL) CBC WITH DIFFERENTIAL (2013 4:37 AM CLERICAL SUPERVISOR) Pathologist [facility] WBC 10.6(H) 4.0 - 9.8 K/uL [facility] - [facility] RBC 4.00 3.90 - 4.90 M/uL [facility] - [facility] HEMOGLOBIN 12.0 11.8 - 14.8 g/dL [facility] HEMATOCRIT 35.9 35.5 - 44.0 % [facility] MCV 89.8 82.0 - 99.0 fL [facility] MCH 30.0 27.2 - 32.6 pg [facility] MCHC 33.4 31.5 - 35.5 % [facility] PLATELETS 347 140 - 350 K/uL [facility] MPV 10.7 9.3 - 12.4 fL [facility] RDW 13.1 11.5 - 14.5 % [facility] RDW-STDEV 42.6 37.1 - 48.7 fL [facility] NEUTROPHILS 72(H) 45 - 70 % [facility] LYMPHOCYTES 13(L) 16 - 45 % [facility] MONOCYTES 11 3 - 13 % [facility] - . [facility] EOSINOPHILS 3 0 - 7 % [facility] - . [facility] BASOPHILS 0 0 - 2 % [facility] NEUTROPHIL ABSOLUTE 7.66(H) 1.90 - 7.00 K/uL [facility] LAB[facility]ATORY SERVICES - . [facility] LYMPHOCYTE ABSOLUTE 1.34 0.70 - 4.50 K/uL [facility]ATORY [facility] - . [facility] MONOCYTE ABSOLUTE 1.21 0.10 - 1.30 K/uL [facility] LAB[facility]ATORY SERVICES - . [facility] EOSINOPHIL ABSOLUTE 0.35 0.00 - 0.70 K/uL [facility] LAB[facility]ATORY SERVICES - . [facility] BASOPHILS ABSOLUTE 0.01 0.00 - 0.20 K/uL [facility] Blood specimen (specimen) 2013 4:37 AM CLERICAL SUPERVISOR 2013 5:34 AM CLERICAL SUPERVISOR Ann Griggs MD HEMATOLOGY ORDERABLE S [facility] [id number] [address] [facility] [place] [address] * (ABNORMAL) BASIC METABOLIC PANEL (2013 4:37 AM CLERICAL SUPERVISOR) SODIUM 140 135 - 145 mmol/L [facility] POTASSIUM 2.8(L) 3.5 - 4.9 mmol/L [facility] [facility] CHLORIDE 98 96 - 108 mmol/L [facility] CO2 26 22 - 30 mmol/L [facility] CALCIUM 9.4 8.6 - 10.2 mg/dL [facility] BUN 6 6 - 20 mg/dL [facility] CREATININE 0.72 0.51 - 0.95 mg/dL [facility] GLUCOSE 160(H) 65 - 99 mg/dL [facility] GFR, >60 >=60 mL/min/1. 7 sq meter [facility] GFR >60 >=60 mL/min/1. 7 sq meter [facility] Comment: GFR is calculated using the IDMS-Traceable Modification of Diet in Renal Disease (MDRD) Study formula and is only valid for patients 18 years or older. Further interpretative information is available in the Laboratory Services Policy Manual on the [facility] Intranet at: [email or web address]/ Blood specimen (specimen) 2013 4:37 AM CLERICAL SUPERVISOR 2013 5:32 AM CLERICAL SUPERVISOR Jillian Gonzalez MD CHEMISTRY ORDERABLES [facility] CLIA# [id number] [address] [place] [address] * (ABNORMAL) POC GLUCOSE (12/08/2013 9:18 PM CLERICAL SUPERVISOR) GLUCOSE POC 176(H) 65 - 99 mg/dL INTERFACE SYSTEM CLIA LICENSE [id number] [facility] SYSTEM Blood specimen (specimen) 12/08/2013 9:18 PM CLERICAL SUPERVISOR 12/08/2013 9:18 PM CLERICAL SUPERVISOR Ann Griggs MD POINT OF CARE TESTIN G Performing Organization Address City/[facility]/ZIP Co de Phone Number INTERFACE SYSTEM Refer to clinic/hospital department * (ABNORMAL) POC GLUCOSE (12/08/2013 5:51 PM CLERICAL SUPERVISOR) GLUCOSE POC 162(H) 65 - 99 mg/dL INTERFACE SYSTEM COMMENT, GLU POC Notified RN/MD INTERFACE SYSTEM CLIA LICENSE [id number] INTERF [facility] SYSTEM Blood specimen (specimen) 12/08/2013 5:51 PM CLERICAL SUPERVISOR 12/08/2013 5:51 PM CLERICAL SUPERVISOR Ann Griggs MD POINT OF CARE TESTIN G INTERFACE SYSTEM Refer to clinic/hospital department * (ABNORMAL) POC GLUCOSE (12/08/2013 1:43 PM CLERICAL SUPERVISOR) GLUCOSE POC 137(H) 65 - 99 mg/dL INTERFACE SYSTEM CLIA LICENSE [id number] INTERF [facility] SYSTEM Blood specimen (specimen) 12/08/2013 1:43 PM CLERICAL SUPERVISOR 12/08/2013 1:43 PM CLERICAL SUPERVISOR Ann Griggs MD POINT OF CARE TESTIN G INTERFACE SYSTEM Refer to clinic/hospital department * (ABNORMAL) CBC WITH DIFFERENTIAL (12/08/2013 11:20 AM CLERICAL SUPERVISOR) WBC 12.1(H) 4.0 - 9.8 K/uL [facility] RBC 3.98 3.90 - 4.90 M/uL [facility] HEMOGLOBIN 11.9 11.8 - 14.8 g/dL [facility] HEMATOCRIT 36.0 35.5 - 44.0 % [facility] MCV 90.5 82.0 - 99.0 fL [facility] MCH 29.9 27.2 - 32.6 pg [facility] MCHC 33.1 31.5 - 35.5 % [facility] PLATELETS 303 140 - 350 K/uL [facility] MPV 10.6 9.3 - 12.4 fL [facility] RDW 13.1 11.5 - 14.5 % [facility] RDW-STDEV 42.8 37.1 - 48.7 fL [facility] NEUTROPHILS 79(H) 45 - 70 % [facility] LYMPHOCYTES 11(L) 16 - 45 % [facility] MONOCYTES 8 3 - 13 % [facility] EOSINOPHILS 1 0 - 7 % [facility] BASOPHILS 0 0 - 2 % [facility] NEUTROPHIL ABSOLUTE 9.64(H) 1.90 - 7.00 K/uL [facility] LYMPHOCYTE ABSOLUTE 1.32 0.70 - 4.50 K/uL [facility] MONOCYTE ABSOLUTE 1.03 0.10 - 1.30 K/uL [facility] EOSINOPHIL ABSOLUTE 0.13 0.00 - 0.70 K/uL [facility] BASOPHILS ABSOLUTE 0.01 0.00 - 0.20 K/uL [facility] Blood specimen (specimen) 12/08/2013 11:20 AM CLERICAL SUPERVISOR 12/08/2013 11:25 AM CLERICAL SUPERVISOR Ann Griggs MD HEMATOLOGY ORDERABLE S [facility] CLIA# [id number] [address] [place] [address] * (ABNORMAL) POC GLUCOSE (12/08/2013 5:29 AM CLERICAL SUPERVISOR) GLUCOSE POC 137(H) 65 - 99 mg/dL INTERFACE SYSTEM CLIA LICENSE [id number] INTERF [facility] SYSTEM Blood specimen (specimen) 12/08/2013 5:29 AM CLERICAL SUPERVISOR 12/08/2013 5:29 AM CLERICAL SUPERVISOR Ann Griggs MD POINT OF CARE TESTIN G Performing Organization Address [facility] Co de Phone Number INTERFACE SYSTEM Refer to clinic/hospital department * (ABNORMAL) POC GLUCOSE (12/07/2013 11:24 PM CLERICAL SUPERVISOR) GLUCOSE POC 155(H) 65 - 99 mg/dL INTERFACE SYSTEM CLIA LICENSE [id number] INTERF [facility] SYSTEM Blood specimen (specimen) 12/07/2013 11:24 PM CLERICAL SUPERVISOR 12/07/2013 11:24 PM CLERICAL SUPERVISOR Ann Griggs MD POINT OF CARE TESTIN G Performing Organization Address City/[facility]/ZIP Co de Phone Number INTERFACE SYSTEM Refer to clinic/hospital department * (ABNORMAL) POC GLUCOSE (12/07/2013 5:52 PM CLERICAL SUPERVISOR) GLUCOSE POC 154(H) 65 - 99 mg/dL INTERFACE SYSTEM CLIA LICENSE [id number] INTERF [facility] SYSTEM Blood specimen (specimen) 12/07/2013 5:52 PM CLERICAL SUPERVISOR 12/07/2013 5:52 PM CLERICAL SUPERVISOR Jillian Gonzalez MD POINT OF CARE TESTIN G INTERFACE SYSTEM Refer to clinic/hospital department * (ABNORMAL) POC GLUCOSE (12/07/2013 12:44 PM CLERICAL SUPERVISOR) GLUCOSE POC 142(H) 65 - 99 mg/dL INTERFACE SYSTEM CLIA LICENSE [id number] INTERF [facility] SYSTEM Blood specimen (specimen) 12/07/2013 12:44 PM CLERICAL SUPERVISOR 12/07/2013 12:44 PM CLERICAL SUPERVISOR Ann Griggs MD POINT OF CARE TESTFREDI Carrasco INTERFACE SYSTEM Refer to clinic/hospital department * (ABNORMAL) COMPREHENSIVE METABOLIC PANEL (12/07/2013 6:12 AM CLERICAL SUPERVISOR) SODIUM 138 135 - 145 mmol/L [facility] POTASSIUM 3.4(L) 3.5 - 4.9 mmol/L [facility] CHLORIDE 99 96 - 108 mmol/L [facility] CO2 27 22 - 30 mmol/L [facility] CALCIUM 8.9 8.6 - 10.2 mg/dL [facility] BUN 9 6 - 20 mg/dL [facility] CREATININE 0.67 0.51 - 0.95 mg/dL [facility] GLUCOSE 156(H) 65 - 99 mg/dL [facility] TOTAL PROTEIN 6.5 6.3 - 8.6 g/dL [facility] ALBUMIN 3.3(L) 3.4 - 4.8 g/dL [facility] BILIRUBIN TOTAL 0.6 0.2 - 1.0 mg/dL [facility] ALKALINE PHOSPHATASE 51 35 - 104 U/L [facility] AST 58(H) 12 - 32 U/L [facility] ALT 74(H) 0 - 31 U/L [facility] GFR, >60 >=60 mL/min/1. 7 sq meter [facility] GFR >60 >=60 mL/min/1. 7 sq meter [facility] Comment: GFR is calculated using the IDMS-Traceable Modification of Diet in Renal Disease (MDRD) Study formula and is only valid for patients 18 years or older. Further interpretative information is available in the Laboratory Services Policy Manual on the [facility] Intranet at: [email or web address] physicians medical centerFiteezatogus va medical center.[facility]/ Blood specimen (specimen) 12/07/2013 6:12 AM CLERICAL SUPERVISOR 12/07/2013 6:39 AM CLERICAL SUPERVISOR Jillian Gonzalez MD CHEMISTRY ORDERABLES [facility] LAB[facility]ATORY SERVICES [facility] CLIA# [id number] [address] [facility] [place] [address] * (ABNORMAL) CBC WITH DIFFERENTIAL (12/07/2013 6:12 AM CLERICAL SUPERVISOR) WBC 14.8(H) 4.0 - 9.8 K/uL [facility]ATORY SERVICES [facility] RBC 3.68(L) 3.90 - 4.90 M/uL [facility] LAB[facility]ATORY SERVICES [facility] HEMOGLOBIN 11.0(L) 11.8 - 14.8 g/dL [facility] LAB[facility]ATORY SERVICES [facility] HEMATOCRIT 34.4(L) 35.5 - 44.0 % [facility] LAB[facility]ATORY SERVICES [facility] MCV 93.5 82.0 - 99.0 fL [facility] LAB[facility]ATORY SERVICES [facility] MCH 29.9 27.2 - 32.6 pg [facility] LAB[facility]ATORY SERVICES [facility] MCHC 32.0 31.5 - 35.5 % [facility] LAB[facility]ATORY SERVICES [facility] PLATELETS 241 140 - 350 K/uL [facility]ATORY SERVICES [facility] MPV 11.2 9.3 - 12.4 fL [facility]ATORY SERVICES [facility] RDW 13.4 11.5 - 14.5 % [facility] RDW-STDEV 45.8 37.1 - 48.7 fL [facility]ATORY SERVICES [facility] NEUTROPHILS 83(H) 45 - 70 % [facility] LAB[facility]ATORY SERVICES [facility] LYMPHOCYTES 9(L) 16 - 45 % [facility] LABORATORY SERVICES [facility] MONOCYTES 8 3 - 13 % [facility] EOSINOPHILS 0 0 - 7 % [facility] BASOPHILS 0 0 - 2 % [facility] NEUTROPHIL ABSOLUTE 12.28(H) 1.90 - 7.00 K/uL [facility] LYMPHOCYTE ABSOLUTE 1.36 0.70 - 4.50 K/uL [facility] MONOCYTE ABSOLUTE 1.14 0.10 - 1.30 K/uL [facility] EOSINOPHIL ABSOLUTE 0.05 0.00 - 0.70 K/uL [facility] BASOPHILS ABSOLUTE 0.01 0.00 - 0.20 K/uL [facility] Blood specimen (specimen) 12/07/2013 6:12 AM CLERICAL SUPERVISOR 12/07/2013 6:38 AM CLERICAL SUPERVISOR Jillian Gonzalez MD HEMATOLOGY ORDERABLE S [facility] LAB[facility]ATORY SERVICES [facility] CLIA# [id number] [address] [place] [address] * (ABNORMAL) POC GLUCOSE (12/07/2013 5:44 AM CLERICAL SUPERVISOR) GLUCOSE POC 148(H) 65 - 99 mg/dL INTERFACE SYSTEM CLIA LICENSE [id number] INTERF [facility] SYSTEM Blood specimen (specimen) 12/07/2013 5:44 AM CLERICAL SUPERVISOR 12/07/2013 5:44 AM CLERICAL SUPERVISOR Jillian Gonzalez MD POINT OF CARE TESTIN G INTERFACE SYSTEM Refer to clinic/hospital department * (ABNORMAL) POC GLUCOSE (12/07/2013 12:50 AM CLERICAL SUPERVISOR) GLUCOSE POC 102(H) 65 - 99 mg/dL INTERFACE SYSTEM CLIA LICENSE [id number] INTERF [facility] SYSTEM Blood specimen (specimen) 12/07/2013 12:50 AM CLERICAL SUPERVISOR 12/07/2013 12:50 AM CLERICAL SUPERVISOR Ann Griggs MD POINT OF CARE TESTIN G INTERFACE SYSTEM Refer to clinic/hospital department * POC GLUCOSE (12/06/2013 6:47 PM CLERICAL SUPERVISOR) GLUCOSE POC 78 65 - 99 mg/dL INTERFACE SYSTEM CLIA LICENSE [id number] [employer] SYSTEM Blood specimen (specimen) 12/06/2013 6:47 PM CLERICAL SUPERVISOR 12/06/2013 6:47 PM CLERICAL SUPERVISOR Ann Griggs MD POINT OF CARE TESTIN G INTERFACE SYSTEM Refer to clinic/hospital department * POC GLUCOSE (12/06/2013 12:12 PM CLERICAL SUPERVISOR) GLUCOSE POC 87 65 - 99 mg/dL INTERFACE SYSTEM COMMENT, GLU POC Notified RN/MD INTERFACE SYSTEM CLIA LICENSE [id number] [employer] SYSTEM Blood specimen (specimen) 12/06/2013 12:12 PM CLERICAL SUPERVISOR 12/06/2013 12:12 PM CLERICAL SUPERVISOR Jillian Gonzalez MD POINT OF CARE TESTIN G Performing Organization Address City/[facility] Co de Phone Number INTERFACE SYSTEM Refer to clinic/hospital department * (ABNORMAL) COMPREHENSIVE METABOLIC PANEL (12/06/2013 5:25 AM CLERICAL SUPERVISOR) SODIUM 141 135 - 145 mmol/L [facility] LAB[facility]ATORY SERVICES - [facility] POTASSIUM 3.3(L) 3.5 - 4.9 mmol/L [facility] LAB[facility]ATORY SERVICES - [facility] CHLORIDE 101 96 - 108 mmol/L [facility] CO2 32(H) 22 - 30 mmol/L [facility] CALCIUM 8.6 8.6 - 10.2 mg/dL [facility] BUN 16 6 - 20 mg/dL [facility] CREATININE 0.86 0.51 - 0.95 mg/dL [facility] LAB[facility]ATORY SERVICES [facility] GLUCOSE 92 65 - 99 mg/dL [facility] LAB[facility]ATORY SERVICES [facility] TOTAL PROTEIN 5.6(L) 6.3 - 8.6 g/dL [facility] ALBUMIN 3.2(L) 3.4 - 4.8 g/dL [facility] BILIRUBIN TOTAL 0.4 0.2 - 1.0 mg/dL [facility] ALKALINE PHOSPHATASE 38 35 - 104 U/L [facility] AST 92(H) 12 - 32 U/L [facility] ALT 104(H) 0 - 31 U/L [facility] GFR, >60 >=60 mL/min/1. 7 sq meter [facility] GFR >60 >=60 mL/min/1. 7 sq meter [facility] LAB[facility]ATORY [facility] Comment: GFR is calculated using the IDMS-Traceable Modification of Diet in Renal Disease (MDRD) Study formula and is only valid for patients 18 years or older. Further interpretative information is available in the Laboratory Services Policy Manual on the [facility] Intranet at: [email or web address] [email or web address] physicians medical [email or web address] va medical center.[facility]/ Blood specimen (specimen) 12/06/2013 5:25 AM CLERICAL SUPERVISOR 12/06/2013 6:26 AM CLERICAL SUPERVISOR Jillian Gonzalez MD [facility]MISTRY [facility]ABLES [id number] [address] [place] [address] * (ABNORMAL) CBC WITH DIFFERENTIAL (12/06/2013 5:25 AM CLERICAL SUPERVISOR) WBC 12.9(H) 4.0 - 9.8 K/uL [facility] RBC 3.42(L) 3.90 - 4.90 M/uL [facility] HEMOGLOBIN 10.1(L) 11.8 - 14.8 g/dL [facility] HEMATOCRIT 32.7(L) 35.5 - 44.0 % [facility] MCV 95.6 82.0 - 99.0 fL [facility] MCH 29.5 27.2 - 32.6 pg [facility] MCHC 30.9(L) 31.5 - 35.5 % [facility] PLATELETS 203 140 - 350 K/uL [facility] MPV 11.1 9.3 - 12.4 [place] [facility] RDW 14.0 11.5 - 14.5 % [facility] RDW-STDEV 48.4 37.1 - 48.7 [place] [facility] NEUTROPHILS 80(H) 45 - 70 % [facility] LYMPHOCYTES 11(L) 16 - 45 % [facility] MONOCYTES 9 3 - 13 % [facility] EOSINOPHILS 0 0 - 7 % [facility] BASOPHILS 0 0 - 2 % [facility] NEUTROPHIL ABSOLUTE 10.28(H) 1.90 - 7.00 K/uL [facility] LYMPHOCYTE ABSOLUTE 1.44 0.70 - 4.50 K/uL [facility] MONOCYTE ABSOLUTE 1.17 0.10 - 1.30 K/uL [facility] EOSINOPHIL ABSOLUTE 0.02 0.00 - 0.70 K/uL [facility] BASOPHILS ABSOLUTE 0.01 0.00 - 0.20 K/uL [facility] Blood specimen (specimen) 12/06/2013 5:25 AM CLERICAL SUPERVISOR 12/06/2013 6:26 AM CLERICAL SUPERVISOR Jillian Gonzalez MD HEMATOLOGY ORDERABLE S [facility]ATORY SERVICES - [facility] CLIA# [id number] [address] [place] [address] * POC GLUCOSE (12/06/2013 5:11 AM CLERICAL SUPERVISOR) GLUCOSE POC 95 65 - 99 mg/dL INTERFACE SYSTEM CLIA LICENSE [id number] [facility] SYSTEM Blood specimen (specimen) 12/06/2013 5:11 AM CLERICAL SUPERVISOR 12/06/2013 5:11 AM CLERICAL SUPERVISOR Ann Griggs MD POINT OF CARE TESTIN G INTERFACE SYSTEM Refer to clinic/hospital department * (ABNORMAL) POC GLUCOSE (12/05/2013 11:13 PM CLERICAL SUPERVISOR) GLUCOSE POC 107(H) 65 - 99 mg/dL INTERFACE SYSTEM CLIA LICENSE [id number] [facility] SYSTEM Blood specimen (specimen) 12/05/2013 11:13 PM CLERICAL SUPERVISOR 12/05/2013 11:13 PM CLERICAL SUPERVISOR Ann Griggs MD POINT OF CARE TESTIN G Performing Organization Address [facility] Co de Phone Number INTERFACE SYSTEM Refer to clinic/hospital department * (ABNORMAL) POC GLUCOSE (12/05/2013 5:09 PM CLERICAL SUPERVISOR) GLUCOSE POC 125(H) 65 - 99 mg/dL INTERFACE SYSTEM CLIA LICENSE [id number] [facility] SYSTEM Blood specimen (specimen) 12/05/2013 5:09 PM CLERICAL SUPERVISOR 12/05/2013 5:09 PM CLERICAL SUPERVISOR Ann Griggs MD POINT OF CARE TESTIN G Performing Organization Address [facility] Co de Phone Number INTERFACE SYSTEM Refer to clinic/hospital department * (ABNORMAL) POC GLUCOSE (12/05/2013 1:01 PM CLERICAL SUPERVISOR) GLUCOSE POC 115(H) 65 - 99 mg/dL INTERFACE SYSTEM CLIA LICENSE [id number] [facility] SYSTEM Blood specimen (specimen) 12/05/2013 1:01 PM CLERICAL SUPERVISOR 12/05/2013 1:01 PM CLERICAL SUPERVISOR Ann Griggs MD POINT OF CARE TESTFREDI G Performing Organization Address [facility] Co de Phone Number INTERFACE SYSTEM Refer to clinic/hospital department * (ABNORMAL) POC GLUCOSE (12/05/2013 9:10 AM CLERICAL SUPERVISOR) GLUCOSE POC 140(H) 65 - 99 mg/dL INTERFACE SYSTEM CLIA LICENSE [id number] [facility] SYSTEM Blood specimen (specimen) 12/05/2013 9:10 AM CLERICAL SUPERVISOR 12/05/2013 9:10 AM CLERICAL SUPERVISOR Ann Griggs MD POINT OF CARE TESTIN Danilo INTERFACE SYSTEM Refer to clinic/hospital department * (ABNORMAL) COMPREHENSIVE METABOLIC PANEL (12/05/2013 4:15 AM CLERICAL SUPERVISOR) SODIUM 141 135 - 145 mmol/L [facility] LABORATORY [facility] POTASSIUM 4.0 3.5 - 4.9 mmol/L [facility]AT[facility] CHLORIDE 104 96 - 108 mmol/L [facility] CO2 29 22 - 30 mmol/L [facility] CALCIUM 8.4(L) 8.6 - 10.2 mg/dL [facility] LAB[facility]AT[facility] BUN 22(H) 6 - 20 mg/dL [facility] LAB[facility]AT[facility] CREATININE 0.87 0.51 - 0.95 mg/dL [facility] LAB[facility]AT[facility] GLUCOSE 156(H) 65 - 99 mg/dL [facility] TOTAL PROTEIN 5.7(L) 6.3 - 8.6 g/dL [facility] LABORATORY [facility] ALBUMIN 3.5 3.4 - 4.8 g/dL [facility] LABORAT[facility] BILIRUBIN TOTAL 0.4 0.2 - 1.0 mg/dL [facility] LABORAT[facility] ALKALINE PHOSPHATASE 37 35 - 104 U/L [facility] AST 118(H) 12 - 32 U/L [facility] ALT 130(H) 0 - 31 U/L [facility] GFR, >60 >=60 mL/min/1. 7 sq meter [facility] LAB[facility]AT[facility] GFR >60 >=60 mL/min/1. 7 sq meter [facility] Comment: GFR is calculated using the IDMS-Traceable Modification of Diet in Renal Disease (MDRD) Study formula and is only valid for patients 18 years or older. Further interpretative information is available in the Laboratory Services Policy Manual on the [facility] Intranet at: [email or web address]/ Blood specimen (specimen) 12/05/2013 4:15 AM CLERICAL SUPERVISOR 12/05/2013 4:29 AM CLERICAL SUPERVISOR Ann Muhammad DO CHEMISTRY ORDERABLES [facility] CLIA# [id number] [address] [place] [address] * (ABNORMAL) CBC WITH DIFFERENTIAL (12/05/2013 4:15 AM CLERICAL SUPERVISOR) WBC 13.3(H) 4.0 - 9.8 K/uL [facility] RBC 3.60(L) 3.90 - 4.90 M/uL [facility] HEMOGLOBIN 10.9(L) 11.8 - 14.8 g/dL [facility] HEMATOCRIT 33.6(L) 35.5 - 44.0 % [facility] MCV 93.3 82.0 - 99.0 fL [facility] MCH 30.3 27.2 - 32.6 pg [facility] MCHC 32.4 31.5 - 35.5 % [facility] PLATELETS 236 140 - 350 K/uL [facility] MPV 11.2 9.3 - 12.4 fL [facility] RDW 13.8 11.5 - 14.5 % [facility] RDW-STDEV 47.2 37.1 - 48.7 fL [facility] NEUTROPHILS 83(H) 45 - 70 % [facility] LYMPHOCYTES 8(L) 16 - 45 % [facility] MONOCYTES 9 3 - 13 % [facility] NEAL EOSINOPHILS 0 0 - 7 % [facility] BASOPHILS 0 0 - 2 % [facility] NEUTROPHIL ABSOLUTE 11.09(H) 1.90 - 7.00 K/uL [facility] LYMPHOCYTE ABSOLUTE 1.06 0.70 - 4.50 K/uL [facility] MONOCYTE ABSOLUTE 1.18 0.10 - 1.30 K/uL [facility] EOSINOPHIL ABSOLUTE 0.00 0.00 - 0.70 K/uL [facility] LABORATORY SERVICES - [facility] BASOPHILS ABSOLUTE 0.00 0.00 - 0.20 K/uL [facility] LABORATORY SERVICES - [facility] Blood specimen (specimen) 12/05/2013 4:15 AM CLERICAL SUPERVISOR 12/05/2013 4:29 AM CLERICAL SUPERVISOR Ann Muhammad DO HEMATOLOGY ORDERABLE S [facility] LABORATORY SERVICES [facility] CLIA# [id number] [address] [place] [address] * (ABNORMAL) POC GLUCOSE (12/05/2013 4:06 AM CLERICAL SUPERVISOR) GLUCOSE POC 141(H) 65 - 99 mg/dL INTERFACE SYSTEM CLIA LICENSE [id number] INTERF YANY SYSTEM Blood specimen (specimen) 12/05/2013 4:06 AM CLERICAL SUPERVISOR 12/05/2013 4:06 AM CLERICAL SUPERVISOR Ann Nunica DO POINT OF CARE TESTIN G Performing Organization Address City/[facility] Co de Phone Number INTERFACE SYSTEM Refer to clinic/hospital department * (ABNORMAL) POC GLUCOSE (12/04/2013 11:16 PM CLERICAL SUPERVISOR) GLUCOSE POC 122(H) 65 - 99 mg/dL INTERFACE SYSTEM CLIA LICENSE [id number] INTERF YANY SYSTEM Blood specimen (specimen) 12/04/2013 11:16 PM CLERICAL SUPERVISOR 12/04/2013 11:16 PM CLERICAL SUPERVISOR Ann Jb DO POINT OF CARE TESTIN G INTERFACE SYSTEM Refer to clinic/hospital department * (ABNORMAL) POC GLUCOSE (12/04/2013 8:15 PM CLERICAL SUPERVISOR) GLUCOSE POC 140(H) 65 - 99 mg/dL INTERFACE SYSTEM CLIA LICENSE [id number] INTERF YANY SYSTEM Blood specimen (specimen) 12/04/2013 8:15 PM CLERICAL SUPERVISOR 12/04/2013 8:15 PM CLERICAL SUPERVISOR Ann Muhammad DO POINT OF CARE TESTFREDI Carrasco Performing Organization Address [facility] de Phone Number INTERFACE SYSTEM Refer to clinic/hospital department * (ABNORMAL) POC GLUCOSE (12/04/2013 5:57 PM CLERICAL SUPERVISOR) GLUCOSE POC 184(H) 65 - 99 mg/dL INTERFACE SYSTEM CLIA LICENSE [id number] INTERF YANY SYSTEM Blood specimen (specimen) 12/04/2013 5:57 PM CLERICAL SUPERVISOR 12/04/2013 5:57 PM CLERICAL SUPERVISOR Ann Griggs MD POINT OF CARE TESTFREDI Carrasco Performing Organization Address [facility] de Phone Number INTERFACE SYSTEM Refer to clinic/hospital department * PATHOLOGY (12/04/2013 12:33 PM CLERICAL SUPERVISOR) SURGICAL PATHOLOGY ?[facility] ?[address] ? [place], [place] ??[address] ? Patient: ??REBEL SCHULTZ ? : ??1950 ? Procedure Date: ??12/04/2013 ? Accession Date: ??12/04/2013 ? Case No: ??[id number] ? Ordering Dr: ??ANN GRIGGS ? Case type SW is performed by [facility], [address] [place] [address], ? [place], [place] ??[address]; all other case types are performed by [facility] ? [facility], [address], [place], [place] ??[address] ?SURGICAL PATHOLOGY & NON-GYNECOLOGIC CYTOPATHOLOGY REPORT ? [...] Multiple potential ? lymph nodes are identified. Roundhouse Firer/Fireman sections are submitted in ? cassettes as follows: A1 and A2-uncinate process, perpendicularly sectioned ? and entirely submitted; A3-pancreatic resection margin, perpendicularly ? sectioned and entirely submitted; A4 through A7-cystic lesion, entirely ? submitted, proximal to distal; A8-unremarkable pancreas, including yellow-, ? blue-, and black-inked surfaces; A9 and N74-wuopmxxy peripancreatic lymph ? nodes; A11 and X53-zjns with one peripancreatic lymph node, bisected; A13 ? through P50-fijzpzreza around cystic lesion, entirely submitted; B1- ? duodenum margin, enface; B2-bile duct margin, en face; B3 and B4-ampulla ? with nodular lesion (entirely submitted), bile duct, and pancreas; C1 and ? C2-stomach margin, en face; C3-pylorus; C4 and C5-multiple lymph nodes from ? adipose tissue attached to stomach; C6-one lymph node, bisected, from ? adipose tissue attached to stomach; C13 though Y16-newqbewwo of tissue ? around cystic lesion. Also received within the container is a 7.8 x 2 x ? 0.8-cm collapsed previously disrupted gallbladder. The serosal surface is ? purple-barrientos, smooth and glistening. The gallbladder wall has a uniform ? thickness of 0.3 cm. The mucosal surface is mackay and velvety, with focal ? yellow stippling. No distinct mucosal lesions are identified. ? Roundhouse Firer/Fireman sections are submitted in cassette D1 and D2. Also received ? loose within the container is a 27 x 9 x 1.4-cm piece of yellow adipose ? tissue, consistent with omentum. The cut surface is yellow-mackay, lobulated ? and unremarkable. Roundhouse Firer/Fireman sections are submitted in cassettes E1 and ? E2. ? [facility] 12.05.2013 03:32 pm ? Microscopic: ? Received are slides labeled [id number], Rebel Foreman. ? The submitted Whipple specimen [...] Number examined 16; Number involved 0. ? [facility] 12.06.2013 01:09 pm ? Staging Form: ? Yes. ? ELECTRONIC SIGNATURE FOR CHRISTINA ISLAS M.D.- 12/11/13 04:09 pm [facility] LABORATORY [facility] Tissue specimen (specimen) 12/04/2013 12:33 PM CLERICAL SUPERVISOR Ann Muhammad DO PATHOLOGY/CYTOLOGY O RDERABLES [facility] LABORATORY [facility] CLIA# [id number] [address] [facility] [address] * (ABNORMAL) POC GLUCOSE (12/04/2013 11:48 AM CLERICAL SUPERVISOR) GLUCOSE POC 167(H) 65 - 99 mg/dL INTERFACE SYSTEM CLIA LICENSE [id number] INTERF YANY SYSTEM Blood specimen (specimen) 12/04/2013 11:48 AM CLERICAL SUPERVISOR 12/04/2013 11:48 AM CLERICAL SUPERVISOR Ann Griggs MD POINT OF CARE TESTIN G INTERFACE SYSTEM Refer to clinic/hospital department * (ABNORMAL) POC GLUCOSE (12/04/2013 7:11 AM CLERICAL SUPERVISOR) GLUCOSE POC 127(H) 65 - 99 mg/dL INTERFACE SYSTEM CLIA LICENSE [id number] INTERF YANY SYSTEM Blood specimen (specimen) 12/04/2013 7:11 AM CLERICAL SUPERVISOR 12/04/2013 7:11 AM CLERICAL SUPERVISOR Ann Griggs MD POINT OF CARE TESTFREDI [...] 1144, Routine, Intra-op Given 12/04/2013 7:59 AM CLERICAL SUPERVISOR 1,000 mL Operative Site documented in this encounter Active and Recently Administered Medications Due to Daylight Saving Time, this section may contain times in both CLERICAL SUPERVISOR and CDT. Scheduled Medication Order 12/08/2013 2013 [...] Wed12/04/13 at 0745, Until Wed12/08/13 at 0744, #[id number] dextrose 5% - sodium chloride 0.45% infusion [...] RN) documented in this encounter Care Teams Shopping Centre Manager Relationship Specialty Start Date End Date Jareth Lopez MD [address] [place] [address] PCP - General Family Practice 04/11/13 documented as of this encounter
--- OUTSIDE RECORDS SUMMARY | 2024-09-27 23:28 | XMS_ITS | Encounter Summary ---
Author Organization [facility] Address [address] [place] [address] Care Team Providers Care Returns Supervisor Name Role Phone Jareth Lopez MD Primary Care Provider [phone] Encounter Details Date Type Department Care Team (Latest Contact Info) Description 11/27/2013 2:57 PM STRUCTURAL SHOP HELPER - 11/27/2013 11:59 PM [facility] Hospital Encounter [facility] [address] [place] [address] Andi Marley MD [address] [facility] [address] [place] [address] Discharge Disposition: Home or Self [...] Tube Present on Admission : No; Type: [place] sump; Size: 14 Fr; Location: left nostril [...] Comments Blood Pressure 156/83 11/27/2013 3:17 PM STRUCTURAL SHOP HELPER Pulse 92 11/27/2013 3:17 PM STRUCTURAL SHOP HELPER Temperature - - Respiratory Rate - - Oxygen Saturation 97% 11/27/2013 3:17 PM STRUCTURAL SHOP HELPER Inhaled Oxygen Concentration - - Weight 82.6 kg (182 lb) 11/27/2013 3:17 PM STRUCTURAL SHOP HELPER Height 163.8 cm (5' 4.5 ) 11/27/2013 3:17 PM STRUCTURAL SHOP HELPER Body Mass Index 30.76 11/27/2013 3:17 PM STRUCTURAL SHOP HELPER documented in this encounter Medications at Time of Discharge Medication Sig Dispensed Refills Start Date End Date triamterene-hydrochloro thiazide (MAXZIDE 25) 37.5-25 mg tablet Take 1 Tab by mouth daily. L GASSERI/B BIFIDUM/B LONGUM ([employer] ORAL) Take by mouth. oxyCODONE-acetaminophen (PERCOCET) 5-325 [...] Celia Diaz FNP - 11/27/2013 3:30 PM STRUCTURAL SHOP HELPER Pre-Procedure Anesthesiology Consultation and Evaluation (PACE) Service 11/27/2013 3:30 PM Name: Elena Fernández Age: 62 y.o. Sex: female CSN: [id number] Procedure: Whipple Allergies Allergen Reactions ??? Adhesive Other (See Comments) Blisters ??? Codeine Other (See Comments) Respiratory arrest ??? Nickel Other (See Comments) Sores ??? Penicillins Anaphylaxis Respiratory distress ??? Sulfa (Sulfonamide Antibiotics) Hives Internal and external hives Current Outpatient Prescriptions Medication Sig Dispense Refill ??? triamterene-hydrochlorothiazide (MAXZIDE 25) 37.5-25 mg tablet Take 1 Tab by mouth daily. ??? L GASSERI/B BIFIDUM/B LONGUM ([facility] ORAL) Take by mouth. [...] NECESSARY FOLLOW-UP History and physical performed in [facility]; tests (ECG, blood work) reviewed. Abnormal Results Found: no Further Testing or Evaluation Required: no Final [facility] Center Review: May proceed with procedure/surgery: yes KRISTINA Cortez CTURAL SHOP HELPER documented in this encounter Plan of Treatment Not on file documented as of this encounter Procedures Procedure Name Priority Date/Time Associated Diagnosis Comments CBC WITH DIFFERENTIAL Stat 11/27/2013 3:00 PM STRUCTURAL SHOP HELPER PROTIME-INR Routine 11/27/2013 3:00 PM STRUCTURAL SHOP HELPER TYPE AND CROSSMATCH Routine 11/27/2013 3 :00 PM STRUCTURAL SHOP HELPER BASIC METABOLIC PANEL Stat 11/27/2013 3:00 PM STRUCTURAL SHOP HELPER EKG 12-LEAD Routine 11/27/2013 2:56 PM STRUCTURAL SHOP HELPER documented in this encounter Results * PROTIME-INR (11/27/2013 3:00 PM STRUCTURAL SHOP HELPER) PROTIME 13.5 12.7 - 15.1 Seconds [facility] LABORATORY [facility] INR 1.0 0.9 - 1.1 [facility] Comment: INR Therapeutic Range: Adult: ?? 2.0 - 3.0 for pulmonary embolism or prophylaxis against venous ?thrombosis or systemic embolization. 2.0 - 3.0 for patients with tissue heart valves. 2.5 - 3.5 for patients with mechanical heart valves or post NV. Pediatric ??(12 years and under): 1.5 - 3.0 Although the target range in children is not well established, ?INR values of 1.5 - 3.0 are recommended for most patients. ?Higher values have been used in children with prosthetic ?cardiac valves and hereditary clotting disorders. (<3 days) therapeutic ranges have not been established. Blood specimen (specimen) 11/27/2013 3:00 PM STRUCTURAL SHOP HELPER 11/27/2013 4:34 PM STRUCTURAL SHOP HELPER Narrative [facility] LABORATORY SERVICES [facility] - 11/27/2013 4:55 PM STRUCTURAL SHOP HELPER 11 Andi Marley MD HEMATOLOGY ORDERABLE S Performing Organization Address [facility]/ZIP Co de Phone Number [facility]ORATORY SERVICES [facility]# [id number] [address] [place] [address] * TYPE AND CROSSMATCH (11/27/2013 3:00 PM STRUCTURAL SHOP HELPER) SPECIMEN LIFE 3 days from OR date [facility] HISTORY CHECK No Historical ABO/Rh [facility] SERVICES [facility] ABO/RH TYPE O Positive [facility] SERVICES [facility] ANTIBODY SCREEN Negative [facility] Blood specimen (specimen) 11/27/2013 3:00 PM STRUCTURAL SHOP HELPER 11/27/2013 4:34 PM STRUCTURAL SHOP HELPER Andi Marley MD BLOOD BANK ORDERABLE S Performing Organization Address [facility]/ZIP Co de Phone Number [facility] LABORATORY SERVICES [facility]# [id number] [address] [place] [address] * (ABNORMAL) BASIC METABOLIC PANEL (11/27/2013 3:00 PM STRUCTURAL SHOP HELPER) SODIUM 138 135 - 145 mmol/L [facility]ORATORY [facility] POTASSIUM 3.6 3.5 - 4.9 mmol/L [facility] LABORATORY [facility] CHLORIDE 98 96 - 108 mmol/L [facility] CO2 29 22 - 30 mmol/L [facility]ORAT[facility] CALCIUM 10.1 8.6 - 10.2 mg/dL [facility] BUN 20 6 - 20 mg/dL [facility] CREATININE 0.76 0.51 - 0.95 mg/dL [facility] GLUCOSE 146(H) 65 - 99 mg/dL [facility] GFR, >60 >=60 mL/min/1. 7 sq meter [facility]ATORY [facility] GFR >60 >=60 mL/min/1. 7 sq meter [facility]AT[facility] Comment: GFR is calculated using the IDMS-Traceable Modification of Diet in Renal Disease (MDRD) Study formula and is only valid for patients 18 years or older. Further interpretative information is available in the Laboratory Services Policy Manual on the [facility] Intranet at: [email or web address]/ Blood specimen (specimen) 11/27/2013 3:00 PM STRUCTURAL SHOP HELPER 11/27/2013 4:34 PM STRUCTURAL SHOP HELPER Andi Marley MD CHEMISTRY ORDERABLES [facility]# [id number] [address] [place] [address] * CBC WITH DIFFERENTIAL (11/27/2013 3:00 PM STRUCTURAL SHOP HELPER) WBC 8.2 4.0 - 9.8 K/uL [facility] LABORATORY [facility] RBC 4.32 3.90 - 4.90 M/uL [facility] HEMOGLOBIN 12.9 11.8 - 14.8 g/dL [facility] LABORATORY [facility] HEMATOCRIT 39.4 35.5 - 44.0 % [facility] MCV 91.2 82.0 - 99.0 fL [facility] LABORATORY [facility] MCH 29.9 27.2 - 32.6 pg [facility] MCHC 32.7 31.5 - 35.5 % [facility] PLATELETS 295 140 - 350 K/uL [facility] MPV 11.7 9.3 - 12.4 NC [facility] RDW 13.4 11.5 - 14.5 % [facility] RDW-STDEV 44.3 37.1 - 48.7 NC [facility] NEUTROPHILS 62 45 - 70 % [facility] LYMPHOCYTES 28 16 - 45 % [facility] MONOCYTES 7 3 - 13 % [facility] EOSINOPHILS 3 0 - 7 % [facility] BASOPHILS 0 0 - 2 % [facility] NEUTROPHIL ABSOLUTE 5.11 1.90 - 7.00 K/uL [facility] LYMPHOCYTE ABSOLUTE 2.26 0.70 - 4.50 K/uL [facility] MONOCYTE ABSOLUTE 0.58 0.10 - 1.30 K/uL [facility] EOSINOPHIL ABSOLUTE 0.26 0.00 - 0.70 K/uL [facility] . [facility] BASOPHILS ABSOLUTE 0.02 0.00 - 0.20 K/uL [facility] Blood specimen (specimen) 11/27/2013 3:00 PM STRUCTURAL SHOP HELPER 11/27/2013 4:34 PM STRUCTURAL SHOP HELPER Andi Marley MD HEMATOLOGY ORDERABLE S [facility] [id number] [address] [place] [address] * EKG 12-LEAD (11/27/2013 2:56 PM STRUCTURAL SHOP HELPER) 11/27/2013 2:56 PM STRUCTURAL SHOP HELPER Narrative INTERFACE SYSTEM - 11/28/2013 7:28 AM STRUCTURAL SHOP HELPER ? Stationary ECG Study ? [facility] ? Test Date: ?11/27/2013 2:56:47 PM ? Pat Name: ? Elena Fernández ?Department: ?? 8 ?Room: ? Gender: ? F ?Instrumentation Specialist: ?? harrdd ? : ?1950 ? Requested by: Andi Ayaka L ? Order Number: [id number] ?Reading MD: ?? Diogenes Stickley ? Intervals ?[place] ? Rate: ? 87 ? P: ?64 ? NH: ? 159 ?QRS: ?35 ? QRSD: ? 92 ? T: ?73 ? QT: ? 370 ? QTc: ?415 ? Interpretive Statements SINUS RHYTHM No previous ECG available for comparison Electronically Signed On 11-28-13 07:28:40 STRUCTURAL SHOP HELPER by Diogenes Huynh Procedure Note Provider, Historical - 11/28/2013 Stationary ECG Study [facility] Test Date: 11/27/2013 2:56:47 PM Pat Name: Elena Fernández Department: 8 Room: Gender: F Instrumentation Specialist: juvenal : 1950 Requested by: Andi Wells Order Number: [id number] Fermín MD: Diogenes Huynh Intervals [place] Rate: 87 P: 64 NH: 159 QRS: 35 QRSD: 92 T: 73 QT: 370 QTc: 415 Interpretive Statements SINUS RHYTHM No previous ECG available for comparison Electronically Signed On 11-28-13 07:28:40 STRUCTURAL SHOP HELPER by Diogenes Huynh Andi Marley MD ECG ORDERABLES INTERFACE SYSTEM Refer to clinic/hospital department documented in this encounter Visit Diagnoses Not on filedocumented in this encounter Care Teams Returns Supervisor Relationship Specialty Start Date End Date Jareth Lopez MD [address] [place] [address] PCP - General Family Practice 04/11/13 documented as of this encounter
--- OUTSIDE RECORDS SUMMARY | 2024-09-27 23:28 | XMS_ITS | Encounter Summary ---
Author Organization [facility] Address [address] [place] [address] Care Team Providers Care Shirt Ironer Name Role Phone Jareth Lopez MD Primary Care Provider Encounter Details Date Type Department Care Team (Late st Contact Info) Description 07/18/2013 Abstract [facility] Surgical Spec [place] [address] [facility] [address] [place] [address] Provider, Abstract NO ADDRESS ON FILE Social [...] on filedocumented in this encounter Care Teams Shirt Ironer Relationship Specialty Start Date End Date Jareth Lopez MD [address] [place] [address] PCP - General Family Practice 04/11/13 documented as of this encounter
--- OUTSIDE RECORDS SUMMARY | 2024-09-27 23:28 | XMS_ITS | Encounter Summary ---
Author Organization [facility] Address [address] [place] [address] Care Team Providers Care Hydraulic Governor Assembler Name Role Phone Jareth Lopez MD Primary Care Provider Reason for Visit * Reason Comments Cyst pancreatic Encounter Details Date Type Department Care Team (Late st Contact Info) Description 04/11/2013 3:30 PM CDT Office Visit [facility] Surgical Spec [place] [address] [place] [address] Andi Marley MD [address] [place] [address] Pancreas cyst (Primary Dx) Social [...] pancreas documented in this encounter Care Teams Hydraulic Governor Assembler Relationship Specialty Start Date End Date Jareth Lopez MD [address] [place] [address] PCP - General Family Practice 04/11/13 documented as of this encounter
--- OUTSIDE RECORDS SUMMARY | 2024-09-27 23:28 | XMS_ITS | Encounter Summary ---
Author Organization [facility] Address [address] [place] [address] Care Team Providers Care Chemical Preparer Name Role Phone Jareth Lopez MD Primary Care Provider [phone] Encounter Details Date Type Department Care Team (Late st Contact Info) Description 09/15/[address] [facility] Surgical Spec [place] [address] [place] [address] Solo Capps MD [address] [facility] [address] [place] [address] Social History Tobacco Use Types Packs/Day [...] on filedocumented in this encounter Care Teams Chemical Preparer Relationship Specialty Start Date End Date Jareth Lopez MD [address] [place] [address] PCP - General Family Practice 04/11/13 documented as of this encounter
--- OUTSIDE RECORDS SUMMARY | 2024-09-27 23:28 | XMS_ITS | Encounter Summary ---
Author Organization [facility] Address [address] [place] [address] Care Team Providers Care Spray Gunner Name Role Phone Jareth Lopez MD Primary Care Provider Encounter Details Date Type Department Care Team (Late st Contact Info) Description 09/18/2013 Abstract [facility] Surgical Spec [place] [address] [facility] [address] [place] [phone] Provider, Abstract NO ADDRESS ON FILE Social [...] on filedocumented in this encounter Care Teams Spray Gunner Relationship Specialty Start Date End Date Jareth Lopez MD [address] [place] [address] PCP - General Family Practice 04/11/13 documented as of this encounter
== END 2024-09-21 18:54 | DRG 536 ==
LOC: ANHED 14:25 → ANH3MEDSUR 17:43
PROVIDERS: Nurse Practitioner; Admitting Provider Internal Medicine; Emergency Provider Emergency Medicine; PCP Family Medicine; Visit Provider Nurse Practitioner Adult Health
DX: S32.810A Multiple fractures of pelvis with stable disruption of pelvic ring, initial encounter for closed fracture (principal); W01.0XXA Fall on same level from slipping, tripping and stumbling without subsequent striking against object, initial encounter; M19.90 Unspecified osteoarthritis, unspecified site; E03.9 Hypothyroidism, unspecified; E11.65 Type 2 diabetes mellitus with hyperglycemia; I10 Essential (primary) hypertension; K21.9 Gastro-esophageal reflux disease without esophagitis; I35.0 Nonrheumatic aortic (valve) stenosis; E78.5 Hyperlipidemia, unspecified; Z85.07 Personal history of malignant neoplasm of pancreas; Z90.49 Acquired absence of other specified parts of digestive tract; Z96.1 Presence of intraocular lens; Z98.42 Cataract extraction status, left eye; Z98.41 Cataract extraction status, right eye
CPT/HCPCS: 36415; 71101; 73502; 80053; 82948; 83036; 83690; 83735; 85025; 96374; 96375; 97110; 97161; 97165; 97530; 97535; 99285; A9270; G0378; J1741; J2270; J3010

== ENCOUNTER 2024-10-23 11:37 | Outpatient (CLI) | payer BC, SELFPAY ==
--- NOTE | ~2024-10-23 | US_ITS ---
EXAMINATION: US venous doppler [facility] DATE: 10/23/2024 12:24 INDICATION: Left lower limb localized edema. TECHNIQUE: Grayscale ultrasound images without and with compression and Doppler ultrasound images of the left lower extremity veins were obtained. COMPARISON: None. FINDINGS: The visualized portions of left common femoral vein, profunda (deep) femoral vein, femoral vein, popl iteal vein, peroneal veins, posterior tibial veins, and greater saphenous vein outflow are patent. IMPRESSION: 1. No deep venous thrombosis. Reviewed, dictated and finalized at location B. ZINE PUBLISHER
--- OUTSIDE RECORDS SUMMARY | 2024-10-26 13:03 | XMS_ITS | Clinical Summary ---
Author Organization [facility] Care Team Providers Care Unit Operator Name Role Phone Unavailable Primary Care Provider Unavailabl e Allergies Active Allergy Reactions Criticality Noted Date Comments Adhesive Tape Unknown Codeine Sulfate Unknown Other Unknown metals Penicillins Unknown Sulfa Antibiotics Unknown Medications methylcellulose (CITRUCEL) 500 MG Tablet daily. Active Multiple Vitamin (MULTI-VITAMIN) Tablet daily. Active Calcium Carbonate-Vit D-Min (CALTRATE 600+D PLUS MINERALS) 600-800 MG-UNIT Chewable Tablet daily. Active Probiotic Product ([employer]) Capsule daily. Acti ve Ginkgo Biloba 120 [...] Virus (HCV) Screening 1950 TdaP Immunization 1950 Diabetes: Nephropathy Screening 12/08/1969 Pneumococcal Immunization (5 0+ years) (1 of 2 - PCV) 12/08/1970 Cologuard 12/08/2001 Immunochemical Fecal Occult Blood 12/08/2001 Mammogram 12/08/2001 Zoster Immunization (1 of 2) 12/08/2001 Influenza Immunization (#1) 2024 SARS-COV-2 Immunization ( - season) 2024 Colonoscopy 08/03/2024 08/03/2014 Colorectal Cancer Screening 08/03/2024 Respiratory Syncytial Virus (RSV) Immunization (Adult) (1 - 1-dose 75+ series) 12/08/2026 08/03/2014 Hepatitis B Immunization Aged Out No [...] Maintenance Results * [facility] COLONOSCOPY (08/03/2014) us Jareth Lopez MD PROCEDURE/MINOR SURGICAL ORDE AMANDA Final Result from Last 3 Months or Most Recently Relevant to Health Maintenance
--- OUTSIDE RECORDS SUMMARY | 2024-10-26 13:03 | XMS_ITS ---
Author Organization [facility] Address [address] [place] [address] Phone Care Team Providers Care Orientation & Mobility Specialist Name Role Phone Jareth Lopez MD Primary Care Provider [phone] Active Problems Problem Noted Date Diagnosed Date [...] 4 Hyperlipidemia 12/05/2013 Elevated LFTs 12/05/2013 Current Treatment and Therapy Plans No current plan information found. Past Treatment and Therapy Plans No past plan information found. Lifetime Dose Tracking * Chemical Lifetime Dose [...]
--- OUTSIDE RECORDS SUMMARY | 2024-10-26 13:03 | XMS_ITS | Clinical Summary ---
Author Organization [facility] Address [address] [place] [address] Phone Care Team Providers Care Taper/Finisher Name Role Phone Jareth Lopez MD Primary Care Provider Allergies Active Allergy Reactions Criticality Noted Date Comments Adhesive Other (See Comments) Low 04/11/2013 Blisters Codeine Other (See Comments) 04/11/2013 Respiratory arrest Nickel Other (See Comments) Low 04/11/2013 Sores Auddj-9-Lwh-Fish Oil Unknown 01/22/2023 Oxycodone Other (See Comments) 03/21/2015 Can tolerate small dose Penicillins Anaphylaxis High 04/11/2013 Sulfa (Sulfonamide Antibiotics) Hives High 04/11/2013 Medications triamterene-hyd rochlorothiazid e (MAXZIDE 25) 37.5-25 mg tablet Take 1 Tab by mouth daily. Active L GASSERI/B BIFIDUM/B LONGUM ([employer] HEALTH ORAL) Take by mouth. Activ e omeprazole (PRILOSEC) 20 mg Capsule, Delayed Release(E.C.) Take 20 mg by mouth daily. Active multivitamin (DAILY-JASPER) tablet Take 1 Tab by mouth daily. Active POTASSIUM GLUCONATE ORAL Take 595 mg by mouth Daily LATE. Active Cholecalciferol , Vitamin D3, 3,000 unit Tablet Take 2,000 Units by mouth daily. Active MULTIVITAMIN WITH MINERALS (HAIR,SKIN AND NAILS ORAL) Take by mouth. Act chepe docusate sodium (COLACE) 100 mg capsule Take 1 Capsule (100 mg) by mouth 2 times daily Take while taking narcotics for pain. 30 Capsule 0 6 Active empagliflozin/m etformin HCl (SYNJARDY ORAL)Indication s:2 a day in the morning Take by mouth. Act chepe metoprolol succinate (TOPROL XL) 50 mg Extended Release 24 hour tablet TAKE 1 TABLET BY MOUTH ONCE DAILY 9 Active lipase/protease /amylase (CREON ORAL) Take 2 Capsules by mouth [...] being observed with serial endoscopic ultrasound Immunizations Immunization Administration Dates Next Due Influenza Seasonal Unspecified [...] = 0.6 oz pur e alcohol) rarely Comments No Sex and Gender Information Value Date Recorded Sex Assigned at Not on file Legal Sex Female 1:16 PM CDT Gender Identity Not on file Sexual Orientation Not on file Occupation Industry Job Start Date Job End Date Not on file Not on file Not on file Not on file Last Filed Vital Signs [...] Health Maintenance Due Date Last Done Comments DIABETES ANNUAL FOOT EXAM 12/08/1969 DIABETES ANNUAL RETINAL EXAM 12/08/1969 DIABETES HBA1C Q 6 MONTHS 12/08/1969 DIABETES MICROALBUMIN ANNUAL SCREEN 12/08/1969 LDL CHOLESTEROL ANNUAL 12/08/1969 PNEUMOCOCCAL VACCINE 65+ YEA RS (1 of 2 - PCV) 12/08/1970 BREAST CANCER SCREENING 1991 FIT-DNA Q 3 [...] 04/19/2030 04/19/2020 Medical Devices Implanted Type Area Sales Order Clerk Device Identifier Shelf Expiration Date Model / Serial / Lot Tube Feed [place] [id number] - [id number] Implanted:Qty : 1 on 12/04/2013 by Andi Marley MD at [facility] Feeding Device [employer]- [place] [id number] / / [id number] Description:used as stent in duct Mesh Proceed Med Pvpm - Spvpm Implanted:Qty : 1 on 02/07/2016 by Andi Marley MD at [facility] Mesh N/A: Abdomen J&J- [employer] 06/03/2017 PVPM / PVPM / [id number] Sealant Floseal W/ Adptr 10ml [id number] - [id number] Implanted:Qty : 1 on 03/29/2015 by Truman Streeter MD at [facility] Sealant Left: Spine Lumbar HERNANDEZ- [employer] 06/03/2016 [id number] / / [id number] Procedures Procedure Name Priority Date/Time Associated Diagnosis Comments COLONOSCOPY REPORT 04/24/2021 12 :19 PM CDT from Last 3 Months or Most Recently Relevant to Health Maintenance Results * COLONOSCOPY REPORT (04/24/2021 12:19 PM CDT) Narrative Procedure Note Edmond Gant MD - 04/24/2021 12:19 PM CDT [facility] Endoscopy Patient Name: Elena Schultz Procedure Date: 04/24/2021 Date of : 1950 [...] electronically. Number of Addenda: [address] ; [place] [address] Edmond Gant MD GI PROCEDURE ORDERABLES Danitza l Result from Last 3 Months or Most Recently Relevant to Health Maintenance Insurance [facility] FEDERAL Advance Directives For more information, please contact: [phone] * Full Code (Latest Code Status on [...] 9:16 AM 03/29/2015 11:14 AM Care Teams Taper/Finisher Relationship Specialty Start Date End Date Jareth Lopez MD [address] [place] [address] PCP - General Family Practice 04/11/13
--- OUTSIDE RECORDS SUMMARY | 2024-10-26 13:03 | XMS_ITS | Patient Health Summary ---
Author Organization [facility] Address [address] [place] [address] Care Team Providers Care Manager French Name Role Phone Jareht Lopez MD Primary Care Provider [phone] Note from [facility],non-owned Affiliates and Associated Physician Practices is amultiple site organization consisting of ambulatory clinics and hospital sitesin [place], [place], [place] and [place]. This disclosure is being madepursuant to the Care Everywhere program and may not contain all information available regarding this patient. Last updated 18.[facility] Allergies * Codeine(Shortness of Breath) * Penicillins(Shortness [...] - CHEMISTRY ORD ERABLES Performing Organization Address City/State/[facility] Co de Phone Number [facility] [address] [place] [address], [facility] Care Teams Manager French Relationship Specialty Start Date End Date Jareth Lopez MD [address] [place] [address] PCP - General 05/31/09
--- OUTSIDE RECORDS SUMMARY | 2024-10-26 13:03 | XMS_ITS | Referral Summary ---
Author Organization [facility] Address [address] [place] [address] Care Team Providers Care Emergency Dispatch Operator Name Role Phone Jareth Lopez MD Primary Care Provider [phone] Source Comments [facility],non-owned Affiliates and Associated Physician Practices is amultiple site organization consisting of ambulatory clinics and hospital sitesin [place], [place], [place] and [place]. This disclosure is being madepursuant to the Care Everywhere program and may not contain all information available regarding this patient. Last updated 18.[facility] Allergies Active Allergy Reactions Criticality Noted [...] of Treatment Not on file Care Teams Emergency Dispatch Operator Relationship Specialty Start Date End Date Jareth Lopez MD [address] [place] [address] PCP - General 05/31/09
--- OUTSIDE RECORDS SUMMARY | 2024-10-26 13:03 | XMS_ITS | Clinical Summary ---
Author Organization [facility] Address [address] [place] [address] Care Team Providers Care Tamping Machine Operator Name Role Phone Jareth Lopez MD Primary Care Provider [phone] [facility],non-owned Affiliates and Associated Physician Practices is amultiple site organization consisting of ambulatory clinics and hospital sitesin [place], [place], [place] and [place]. This disclosure is being madepursuant to the Care Everywhere program and may not contain all information available regarding this patient. Last updated 18.[facility] Allergies Active Allergy Reactions Criticality Noted Date [...] 1950 MAMMOGRAM 1950 HEPATITIS C SCREENING 12/04/1969 PNEUMOCOCCAL VACCINE 50+ (1 of 1 - PCV) 12/08/2001 ZOSTER VACCINE (1 of 2) 12/08/2001 COVID-19 VACCINE (1 - 2023-2 5 season) 2024 INFLUENZA VACCINE (#1) 2024 08/04/2015 DEPRESSION SCREENING 10/04/2024 Respiratory Syncytial Virus (RSV) Vaccine Pt: or [...] patient's age to complete this topic MENINGOCOCCAL (Group B) VACCINE Aged Out No longer eligible based on patient's age to complete this topic MENINGOCOCCAL VACCINE Aged Out No nathanael kenji eligible based on patient's age to complete this topic Care Teams Tamping Machine Operator Relationship Specialty Start Date End Date Jareth Lopez MD [address] [place] [address] PCP - General 05/31/09
== END 2024-10-23 11:38 | disposition home or self-care (01) ==
PROVIDERS: PCP Family Medicine; Visit Provider Internal Medicine Cardiovascular Disease
DX: R60.0 Localized edema (principal)
CPT/HCPCS: 93971

== ENCOUNTER 2025-06-01 12:48 | Outpatient (CLI) | payer BC, SELFPAY ==
--- OUTSIDE RECORDS SUMMARY | 2025-06-01 12:52 | XMS_ITS | Clinical Summary ---
Author Organization [facility] Address [address] [place] [address] Phone Care Team Providers Care Manager Documentation Name Role Phone Jareth Lopez MD Primary Care Provider Allergies Active Allergy Reactions Criticality Noted Date Comments Adhesive Other (See Comments) Low 04/11/2013 Blisters Codeine Other (See Comments) 04/11/2013 Respiratory arrest Levothyroxine Unknown High 02/08/2025 Edema Nickel Other (See Comments) Low 04/11/2013 Sores Rckjh-3-Aei-Fish Oil Unknown 01/22/2023 Oxycodone Other (See Comments) 03/21/2015 Can tolerate small dose Penicillins Anaphylaxis High 04/11/2013 Sulfa (Sulfonamide Antibiotics) Hives High 04/11/2013 Medications triamterene-hy drochlorothiaz hedy (MAXZIDE 25) 37.5-25 mg tablet Take 1 Tab by mouth daily. Active L GASSERI/B BIFIDUM/B LONGUM ([employer] HEALTH ORAL) Take by mouth. Activ e omeprazole (PRILOSEC) 20 mg Capsule, Delayed Release(E.C.) Take 20 mg by mouth daily. Active multivitamin (DAILY-JASPER) tablet Take 1 Tab by mouth daily. Active POTASSIUM GLUCONATE ORAL Take 595 mg by mouth Daily LATE. Active Cholecalcifero l, Vitamin D3, 3,000 unit Tablet Take 2,000 Units by mouth daily. Active MULTIVITAMIN WITH MINERALS (HAIR,SKIN AND NAILS ORAL) Take by mouth. Act chepe docusate sodium (COLACE) 100 mg capsule Take 1 Capsule (100 mg) by mouth 2 times daily Take while taking narcotics for pain. 30 Capsule 0 6 Active empagliflozin/ metformin HCl (SYNJARDY ORAL)Indicatio ns:2 a day in the morning Take by mouth. Act chepe metoprolol succinate (TOPROL XL) 50 mg Extended Release 24 hour tablet TAKE 1 TABLET BY MOUTH ONCE DAILY 9 Active lipase/proteas e/amylase (CREON ORAL) Take 2 Capsules by mouth 2 times daily. Active pantoprazole (PROTONIX) 40 mg Tablet, Delayed Release (E.C.) Take 40 mg by mouth daily. Active ezetimibe (ZETIA) 10 mg tablet Take 10 mg by mouth daily. Active ALPRAZolam (XANAX) 0.5 mg tablet Take 0.5 mg by mouth nightly as needed for Anxiety. Active traZODone (DESYREL) 50 mg tablet Take 50 mg by mouth daily at bedtime. 5 Active folic acid (FOLVITE) 1 mg tablet Take 1 mg by mouth daily. 5 Active furosemide (LASIX) 20 mg tablet Take 20 mg by mouth daily. Active amLODIPine (NORVASC) 5 mg tablet Take 5 mg by mouth daily. 4 Active methotrexate (RHEUMATREX) 2.5 mg Tablet Take 10 mg by mouth every 7 days. 5 Active clotrimazole-b etamethasone (LOTRISONE) 1-0.05 % Cream by See Admin Instructions route see administration instructions. 5 Active Jardiance 10 mg tablet Take 1 Tablet by mouth daily. 5 Active cyanocobalamin 1,000 mcg Tablet Take 1,000 mcg by mouth daily in the morning. Active Active Problems Problem Noted Date Diagnosed [...] cm being observed with serial endoscopic ultrasound Encounters Date Type Department Care Team Description 05/22/2025 External Device Data ST[facility] ABSTRACTION Provider, Abstract 05/09/2025 External Device Data ST[facility] ABSTRACTION Provider, Abstract 05/08/2025 External Device Data [facility] ABSTRACTION Provider, Abstract 04/26/2025 10:00 AM CDT Office Visit [facility] Oncology and Hematology [facility] [address] [place] [address] Julian Frederick MD Chronic anemia (Primary Dx) 04/18/2025 External Device Data STL ABSTRACTION Provider, Abstract 04/17/2025 External Device Data STL ABSTRACTION Provider, Abstract 04/17/2025 Orders Only Initial Department [address] [facility] ATTN: [place] [address] Provider, Historical 03/20/2025 External Device Data STL ABSTRACTION Provider, Abstract from Last 3 Months Immunizations Immunization Administration Dates Next Due Influenza [...] Sign Reading Time Taken Comments Blood Pressure 121/67 04/26/2025 10:08 AM CDT Pulse 82 04/26/2025 10:04 AM CDT Temperature 36.6 C (97.8 F) 04/26/2025 10:04 AM CDT Respiratory Rate 14 04/26/2025 10:04 AM CDT Oxygen Saturation 93% 04/26/2025 10:04 AM CDT Inhaled Oxygen Concentration - - Weight 59 kg (130 lb) 04/26/2025 10:04 AM CDT Height 160 cm (5' 3) 02/08/2025 2:49 PM CDT Body Mass Index 23.03 02/08/2025 2:49 PM CDT Plan of Treatment Upcoming Encounters Date Type Department Care Team (Late st Contact Info) Description 07/02/2025 10:00 AM CDT Office Visit [facility] Oncology and Hematology - Branch [address] [facility] [address] [place] [address] Julian Frederick MD [address] [address] [place] [address] Health Maintenance Due Date Last Done Comments DIABETES ANNUAL FOOT EXAM 12/08/1969 DIABETES ANNUAL RETINAL EXAM 12/08/1969 DIABETES HBA1C Q 6 MONTHS 12/08/1969 DIABETES MICROALBUMIN ANNUAL SCREEN 12/08/1969 LDL CHOLESTEROL ANNUAL 12/08/1969 PNEUMOCOCCAL VACCINE 50+ YEA RS (1 of 2 - PCV) 12/08/1970 BREAST CANCER SCREENING 1991 FIT-DNA Q 3 years 12/08/1996 FIT/FOBT Q 1 year 12/08/1996 Flex Sig/CT Colonography Q 5 years 12/08/1996 ZOSTER VACCINE (1 of 2) 12/08/2001 RSV VACCINE (60+ or ) (1 - Risk 60-74 years 1-dose series) 2011 OSTEOPOROSIS SCREENING 12/08/2016 INFLUENZA VACCINE (#1) 2025 08/04/2015 COLORECTAL SCREENING 04/24/2026 04/24/2021, 04/24/2021, 10/04/2020, Additional history exists Colorectal Cancer Screening 04/24/2026 DTAP/TDAP/TD VACCINES (2 - T d or Tdap) 04/19/2030 04/19/2020 Medical Devices Implanted Type Area Customer Resource Specialist Device Identifier Shelf Expiration Date Model / Serial / Lot Tube Feed [place] [id number] - [id number] Implanted:Qty : 1 on 12/04/2013 by Andi Marley MD at [facility] Feeding Device [employer]- [employer] CO [id number] / / [id number] Description:used as stent in duct Mesh Proceed Med Pvpm - Spvpm Implanted:Qty : 1 on 02/07/2016 by Andi Marley MD at [facility] Mesh N/A: Abdomen J[employer]J- [employer] 06/03/2017 PVPM / PVPM / [id number] Sealant Floseal W/ Adptr 10ml [id number] - [id number] Implanted:Qty : 1 on 03/29/2015 by Truman Streeter MD at [facility] Sealant Left: Spine Lumbar [employer] 06/03/2016 [id number] / / [id number] Procedures Procedure Name Priority Date/Time Associated Diagnosis Comments CBC WITHOUT DIFFERENTIAL Routine 04/17/2025 9:01 AM CDT FERRITIN Routine 04/17/2025 9:01 AM CDT BASIC METABOLIC PANEL Routine 04/17/2025 9:01 AM CDT IRON, TIBC, AND PERCENT SATURATION Routine 04/17/2025 9:01 AM CDT COLONOSCOPY REPORT 04/24/2021 12 :19 PM CDT from Last 3 Months or Most Recently Relevant to Health Maintenance Results * (ABNORMAL) IRON, TIBC, AND PERCENT SATURATION (04/17/2025 9:01 AM CDT) [facility] IRON 31(L) 45 - 160 mcg/dL [facility] TIBC 311 250 - 450 mcg/dL (calc) [facility] IRON % SATURATION 10(L) 16 - 45 % (calc) [facility] Comment: [facility] Performed [facility]: [facility] [address] [facility] [place] [address] Kaylie Rodriguez MD 04/17/2025 9:01 AM CDT 04/17/2025 9:02 AM CDT us Julian Frederick MD CHEMISTRY ORDERABLES Final Resu lt [facility] [phone] [facility] [address] [facility] [place] [address] * (ABNORMAL) CBC WITHOUT DIFFERENTIAL (04/17/2025 9:01 AM CDT) [facility] WBC 7.1 3.8 - 10.8 Thousand/u L [facility] RBC 3.54(L) 3.80 - 5.10 Million/uL [facility] HEMOGLOBIN 10.5(L) 11.7 - 15.5 g/dL [facility] HEMATOCRIT 35.6 35.0 - 45.0 % [facility] MCV 100.6(H) 80.0 - 100.0 fL [facility] MCH 29.7 27.0 - 33.0 pg [facility] MCHC 29.5(L) 32.0 - 36.0 g/dL [facility] Comment: For adults, a slight decrease in the calculated MCHC value (in the range of 30 to 32 g/dL) is most likely not clinically significant; however, it should be interpreted with caution in correlation with other red cell parameters and the patient's clinical condition. RDW 21.2(H) 11.0 - 15.0 % [facility] PLATELETS 415(H) 140 - 400 Thousand/u L [facility] MPV 10.4 7.5 - 12.5 fL [facility] Comment: FASTING:YES FASTING: YES Test Performed at: [facility] [address] [facility] [place] [address] Kaylie Rodriguez MD 04/17/2025 9:01 AM CDT 04/17/2025 9:02 AM CDT Julian Frederick MD HEMATOLOGY ORDERABLES Final Res ult Performing Organization Address City/[facility]/ZIP Co de Phone Number [facility] [phone] [facility] [address] [facility] [place] [address] * FERRITIN (04/17/2025 9:01 AM CDT) Pathologist [facility] FERRITIN 27 16 - 288 ng/mL [facility] Comment: FASTING:YES FASTING: YES Test Performed at: [facility] [address] [facility] [place] [address] Kaylie Rodriguez MD 04/17/2025 9:01 AM CDT 04/17/2025 9:02 AM CDT Julian Frederick MD CHEMISTRY ORDERABLES Final Resu lt Performing Organization Address [facility] Co de Phone Number [facility] [phone] [facility] [address] [place] [address] [place] [address] * (ABNORMAL) BASIC METABOLIC PANEL (04/17/2025 9:01 AM CDT) GLUCOSE 139(H) 65 - 99 mg/dL [facility] Comment: Fasting reference interval For someone without known diabetes, a glucose value >125 mg/dL indicates that they may have diabetes and this should be confirmed with a follow-up test. BUN 25 7 - 25 mg/dL [facility] CREATININE 0.70 0.60 - 1.00 mg/dL [facility] GFR 91 > OR = 60 mL/min/1.7 3m2 [facility] BUN/CREAT RATIO SEE NOTE: (calc) [facility] Comment: Not Reported: BUN and Creatinine are within reference range. SODIUM 138 135 - 146 mmol/L [facility] POTASSIUM 4.7 3.5 - 5.3 mmol/L [facility] CHLORIDE 102 98 - 110 mmol/L [facility] CO2 27 20 - 32 mmol/L [facility] CALCIUM 9.2 8.6 - 10.4 mg/dL [facility] Comment: Test Performed at: [facility] [address] [place] [address] Kaylie Rodriguez MD 04/17/2025 9:01 AM CDT 04/17/2025 9:02 AM CDT Julian Frederick MD CHEMISTRY ORDERABLES Final Resu lt [facility] [phone] [facility] [address] [place] [address] * COLONOSCOPY REPORT (04/24/2021 12:19 PM CDT) Narrative Procedure Note Edmond Gant MD - 04/24/2021 12:19 PM CDT [facility] Endoscopy Patient Name: Elena Schultz [...] Number of Addenda: [address]; [place] [address] Edmond Gnat MD GI PROCEDURE ORDERABLES Danitza l Result from Last 3 Months or Most Recently Relevant to Health Maintenance Insurance FEDERAL FEDERAL Advance Directives For more information, please contact: [phone] * Full Code (Latest Code Status on [...] 9:16 AM 03/29/2015 11:14 AM Care Teams Manager Documentation Relationship Specialty Start Date End Date Jareth Lopez MD [address] [place] [address] PCP - General Family Practice 04/11/13
--- OUTSIDE RECORDS SUMMARY | 2025-06-01 12:52 | XMS_ITS | Clinical Summary ---
Author Organization [facility] Care Team Providers Care Steel Heater Name Role Phone Unavailable Primary Care Provider Unavailabl e Allergies Active Allergy Reactions Criticality Noted Date Comments Adhesive Tape Unknown Codeine Sulfate Unknown Other Unknown metals Penicillins Unknown Sulfa Antibiotics Unknown Medications methylcellulose (CITRUCEL) 500 MG Tablet daily. Active Multiple Vitamin (MULTI-VITAMIN) Tablet daily. Active Calcium Carbonate-Vit D-Min (CALTRATE 600+D PLUS MINERALS) 600-800 MG-UNIT Chewable Tablet daily. Active Probiotic Product (Winster) Capsule daily. Acti ve Ginkgo Biloba 120 [...] Health Maintenance Due Date Last Done Comments Diabetes: Eye Exam 1950 Diabetes: Foot Exam 1950 Diabetes: Hemoglobin A1c 1950 Hepatitis C Virus (HCV) Screening 1950 TdaP Immunization 1950 Diabetes: Nephropathy Screening 12/08/1969 Pneumococcal Immunization (5 0+ years) (1 of 2 - PCV) 12/08/1970 Cologuard 12/08/1996 Immunochemical Fecal Occult Blood 12/08/1996 Zoster Immunization (1 of 2) 12/08/2001 SARS-COV-2 Immunization (1 - 2023- season) 2024 Colonoscopy 08/03/2024 08/03/2014 Colorectal Cancer Screening 08/03/2024 Influenza Immunization (#1) 2025 Respiratory Syncytial Virus (RSV) Immunization (Adult) (1 - 1-dose 75+ series) 12/08/2026 Hepatitis B Immunization Aged Out No longer eligible based on patient's age to complete this topic Human Papillomavirus (HPV) Immunization Aged Out No longer eligible b ased on patient's age to complete this topic [...]
--- OUTSIDE RECORDS SUMMARY | 2025-06-01 12:52 | XMS_ITS | Clinical Summary ---
Author Organization [facility] Address [address] [address] Care Team Providers Care Assistant Surveyor Name Role Phone Jareth Lopez MD Primary Care Provider [phone] Source Comments [facility],non-owned Affiliates and Associated Physician Practices is amultiple site organization consisting of ambulatory clinics and hospital sitesin [place], [place], [place] and [place]. This disclosure is being madepursuant to the Care Everywhere program and may not contain all information available regarding this patient. Last updated 18.[facility] Allergies Active Allergy Reactions Criticality Noted Date Comments Adhesive Sensitivity Other Low 04/11/2013 Blisters Codeine Shortness of Breath 08/14/2011 [id number] Oil-[place] 3 Fa-Soy Other 01/22/2023 Levothyroxine Other High 02/08/2025 Edema Nickel Other Low 04/11/2013 Sores Oxycodone Anaphylaxis High 03/21/2015 Can tolerate small dose Penicillins Shortness of Breath,Anaphylaxis,Un known High 08/14/2011 Sulfa Drugs Skin Reactions,Urticaria Medium 08/14/2011 Medications * Be aware that medications may not be up to date on this document. Alwaysverify current medications with the patient. amLODIPine (Norvasc) 5 MG tablet Take 1 (one) tablet by mouth once daily 10/01/20 24 Active vitamin D3 (Cholecalcifer ol) 75 MCG (3000 UT) tablet Take 2,000 Units by mouth once daily Active traZODone (Desyrel) 50 MG tablet Take 1 (one) tablet by mouth 11/24/19 25 Active pantoprazole EC (Protonix) 40 MG tablet Take 1 (one) tablet by mouth every morning Active Multiple Vitamin (Daily Vites) TABS Take 1 (one) tablet by mouth once daily Active Zenpep 77188-70071 units capsule TAKE 3 CAPSULES BY MOUTH 4 TIMES DAILY WITH MEALS OR SNACKS 11/07/19 25 Active furosemide (Lasix) 20 MG tablet TAKE 1 TABLET BY MOUTH IN THE MORNING NEEDED FOR EDEMA 12/19/19 25 Active Synjardy XR 10-1000 MG tablet Take 1 (one) tablet by mouth every morning 11/22/19 25 Active ferrous sulfate 325 (65 FE) MG tablet Active niacin CR (Niaspan) 500 MG tablet Take 1 (one) tablet by mouth at bedtime Active ascorbic acid (Vitamin C) 250 MG tablet Take 1 (one) tablet by mouth once daily Active ALPRAZolam (Xanax) 0.5 MG tablet Take 1 (one) tablet by mouth anxiety Active Calcium Carbonate-Vit D-Min (Caltrate 600+D Plus Minerals) 600-800 MG-UNIT CHEW once daily Active clotrimazole-b etamethasone (Lotrisone) 1-0.05 % cream Use as instructed SEE ADMIN INSTRUCTIONS 01/09/20 25 Active metoprolol succinate XL 24hr (Toprol XL) 50 MG tablet Take 1 (one) tablet by mouth once daily Active potassium chloride ER (Klor-Con M) 20 MEQ tablet Take 1 (one) tablet by mouth once daily Active triamterene-hy droCHLOROthiaz hedy (Maxzide-25) 37.5-25 MG tablet Take 1 (one) tablet by mouth every morning Active eszopiclone (Lunesta) 2 MG tablet Take 1 (one) tablet by mouth Active Jardiance 10 MG tablet Take 1 (one) tablet by mouth once daily 04/02/20 25 Active cyanocobalamin (Vitamin B-12) 1000 MCG tablet Take 1 (one) tablet by mouth once daily Active Methotrexate Sodium (methotrexate, PF AND NON-PF,) 25 MG/ML injectionIndic ations:Rheumat oid Arthritis Inject 1 mL subcutaneously every 7 days (once a week) Replaces use of oral tablets effective Wednesday05/23/2025. Reasons: Rheumatoid Arthritis 4 mL 2 05/23/20 25 Active folic acid (Folvite) 1 MG tabletIndicati ons:Methotrexa te, corporation lawyer, current use Take 2 (two) tablets by mouth once daily Dose Increase Effective on 05/29/2025. To reduce potential from Methotrexate side effect 60 tablet 11 05/30/20 25 Active folic acid (Folvite) 1 MG tabletIndicati ons:Methotrexa te, corporation lawyer, current use Take 1 (one) tablet by mouth once daily To reduce potential from Methotrexate side effect 30 tablet 11 01/23/20 25 025 Discontin ued(Reord er) methotrexate 2.5 MG tabletIndicati ons:Rheumatoid Arthritis Take 7 (seven) tablets by mouth every 7 days (once a week) Note dose increase effective Wednesday03/28/25 Reasons: Rheumatoid Arthritis 28 tablet 1 03/28/20 25 025 Discontin ued(Clini lila Decision) Active Problems Problem Noted Date Diagnosed Date Trochanteric bursitis of left hip 03/26/2025 Assessment & Plan (03/26/2025 11:56 AM CDT): Point tenderness over the left greater trochanter on exam. Advised to continue physical therapy. Apply heat prior to stretching. If no improvement, consider steroid injection. Holding off for now on injection due to risk of delayed healing in the setting of recent hip fracture. 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 Notes methotrexate seems to provide benefit for initial 5 days after each dose and then tends to experience increasing symptoms of articular pain and stiffness. Discussed available treatment options including further dose titration of oral methotrexate or transition to subcutaneous weekly methotrexate to try to enhance bio availability and thus efficacy towards achieving rheumatoid arthritis remission status. Patient is familiar with insulin injections ( takes insulin for diabetes and she feels comfortable with providing subcutaneous injections) and was in agreement to change to parental subcutaneous weekly methotrexate at this point. Assessment & Plan (03/26/2025 1:03 PM CDT): Still experiencing hand stiffness. Increased MTX to 17.5mg weekly. Labs stable. Assessment & Plan (02/19/2025 1:34 PM CDT): Feeling improved following the recent start of MTX and will titrate dose up to 15 mg p.o. Q 7 days and reassess again following for additional weekly dose cycles. Methotrexate, chcf, current use 01/22/2025 Assessment & Plan (05/21/2025 12:09 PM CDT): Tolerating methotrexate well without identified side effects. Continue daily folic acid supplementation. Does need routine methotrexate monitoring lab repeated especially including liver function test not checked for the past 12 weeks at this point and will provide standing orders for CBC with differential and CMP Q 12 weeks. Assessment & Plan (02/19/2025 1:35 PM CDT): Tolerating MTX well without identified problem and compliant with daily folic acid supplement. Monitoring CBC and CMP Q 4-12 weeks. Other specified disorders of nose and nasal sinu ses 06/21/2012 Dysphonia 02/16/2012 Allergic rhinitis 08/14/2011 Chronic maxillary sinusitis 08/14/2011 Resolved Problems Problem Noted Date Diagnosed Date Resolved Date Trochanteric bursitis of both hips 03/26/2025 03/26/2025 Encounters Date Type Department Care Team Description 05/29/2025 Results Follow-Up [facility] - Rheumatology [address] [place] [address], [address] [place] [address] Davi Allred DO Results 05/22/2025 Orders Only [facility] - Rheumatology [address] [place] [address] Davi Allred DO 05/21/2025 11:20 AM CDT Office Visit [facility] - Rheumatology [address] [place] [address], [address] [place] [address] Davi Allred DO Rheumatoid arthritis involving multiple joints (HCC) (Primary Dx); Methotrexate, chcf, current use 04/25/2025 Orders Only [facility] - Rheumatology [facility] [address], [address] [place] [address] Davi Allred DO 03/26/2025 11:20 AM CDT Office Visit [facility] - Rheumatology [facility] [address], [address] [place] [address] Davi Allred DO Trochanteric bursitis of left hip (Primary Dx); Rheumatoid arthritis involving multiple joints (HCC) from Last 3 Months Immunizations Immunization Administration Dates Next Due TDAP (7yrs+) 04/19/2020 Family History Medical History Relation Name Comments Cancer Mother Relation Name Status Comments Mother Social History Tobacco Use Types Packs/Day Years Used Date Smoking Tobacco: Never Smokeless Tobacco: Never Alcohol Use Standard Drinks/Week Comments No 0 (1 standard drink = 0.6 oz pur e alcohol) PHQ-2 Answer Date Recorded Patient Health Questionnaire-2 Score 0 05/21/2025 Comments Unknown Sex and Gender Information Value Date Recorded Sex Assigned at Not on file 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 Gender Identity Not on file Sexual Orientation Not on file Last Filed Vital Signs Vital Sign Reading Time Taken Comments Blood Pressure 110/50 05/21/2025 11:09 AM CDT Pulse 82 05/21/2025 11:09 AM CDT Temperature 36.1 C (97 F) 05/21/2025 11:09 AM CDT Respiratory Rate 16 05/21/2025 11:09 AM CDT Oxygen Saturation 96% 05/21/2025 11:09 AM CDT Inhaled Oxygen Concentration - - Weight 60.8 kg (134 lb) 05/21/2025 11:09 AM CDT Height 160 cm (5' 3) 03/26/2025 11:17 AM CDT Body Mass Index 23.74 03/26/2025 11:17 AM CDT Plan of Treatment Upcoming Encounters Date Type Department Care Team (Late st Contact Info) Description 07/03/2025 11:20 AM CDT Office Visit [facility] - Rheumatology [facility] [address], [address] [place] [phone] Davi Allred DO [facility] [address] [place] [address] Health Maintenance Due Date Last Done Comments BONE DENSITY TESTING 1950 COLOGUARD (AGES 45-75) - COL ON CA SCREENING 1950 COLON MONITORING 1950 COLONOSCOPY - COLON CA SCREENING 1950 CT COLONOGRAPHY - COLON CA SCREENING 1950 Colorectal Cancer Screening 1950 FIT - COLON CA SCREENING 1950 FLEX SIG - COLON CA SCREENING 1950 LIPID TESTING 1950 MAMMOGRAM 1950 PNEUMOCOCCAL VACCINE 50+ (1 of 1 - PCV) 12/08/2001 ZOSTER VACCINE (1 of 2) 12/08/2001 Respiratory Syncytial Virus (RSV) Vaccine Pt: or over 60 yrs (1 - Risk 60-74 years 1-dose series) 2011 COVID-19 VACCINE (2023-2 5 season) 2024 INFLUENZA VACCINE (#1) 2025 08/04/2015 DTAP/TDAP/TD VACCINES (2 - T d or Tdap) 04/19/2030 04/19/2020 HEPATITIS C SCREENING Completed 01/23/2025 DEPRESSION SCREENING Completed 02/19/2025 HEPATITIS B VACCINE Aged Out No longe r eligible based on patient's age to complete this topic HIB VACCINE Aged Out No longer eligi ble based on patient's age to complete this topic HPV VACCINE Aged Out No longer eligi ble based on patient's age to complete this topic MENINGOCOCCAL (Group B) VACC INE SHARED DECISION-MAKING Aged Out No longer eligibl e based on patient's age to complete this topic MENINGOCOCCAL GROUPS A/C/Y/W VACCINE Aged Out No longer eligible b ased on patient's age to complete this topic Procedures Procedure Name Priority Date/Time Associated Diagnosis Comments C-REACTIVE PROTEIN Routine 05/28/2025 9: 17 AM CDT Rheumatoid arthritis involving multiple joints (HCC) COMPREHENSIVE METABOLIC PANEL Routine 05/28/2025 9:17 AM CDT Methotrexate, corporation lawyer, current use CBC W AUTO DIFFERENTIAL Routine 05/28/2025 9:17 AM CDT Methotrexate, corporation lawyer, current use HEPATITIS C AB W/RFLX TO HCV RNA QN PCR Routine 01/23/2025 11:05 AM CDT Methotrexate, chcf, current use from Last 3 Months or Most Recently Relevant to Health Maintenance Results * (ABNORMAL) C-REACTIVE PROTEIN (05/28/2025 9:17 AM CDT) Pathologist [facility] C-Reactive Protein 39.1(H) <8.0 mg/L [facility] Comment: Test Performed at: [facility] [id number] [facility] [address] HECTOR CR MD Blood BLOOD SPECIMEN / Unknown 05/28/2025 9:17 AM CDT 05/28/2025 9:17 AM CDT Davi Allred DO LAB - CHEMISTRY ORDERABLES Final Result [facility] [id number] [place] [address] * (ABNORMAL) CBC WITH DIFFERENTIAL (05/28/2025 9:17 AM CDT) [facility] White Blood Cell Count 10.6 3.8 - 10.8 Thousand/ uL [facility] RBC 2.88(L) 3.80 - 5.10 Million/u L [facility] Hemoglobin 9.3(L) 11.7 - 15.5 g/dL [facility] Hematocrit 30.4(L) 35.0 - 45.0 % [facility] MCV 105.6(H) 80.0 - 100.0 fL [facility] MCH 32.3 27.0 - 33.0 pg [facility] MCHC 30.6(L) 32.0 - 36.0 g/dL [facility] Comment: For adults, a slight decrease in the calculated MCHC value (in the range of 30 to 32 g/dL) is most likely not clinically significant; however, it should be interpreted with caution in correlation with other red cell parameters and the patient's clinical condition. RDW 18.5(H) 11.0 - 15.0 % [facility] Platelet Count 422(H) 140 - 400 Thousand/ uL [facility] MPV 10.5 7.5 - 12.5 fL [facility] Neutrophil Absolute 8597(H) 1500 - 7800 cells/uL [facility] Lymphocytes Absolute 880 850 - 3900 cells/uL [facility] Absolute Monocytes 890 200 - 950 cells/uL [facility] Eosinophils Absolute 223 15 - 500 cells/uL [facility] Basophils Absolute 11 0 - 200 cells/uL [facility] Granulocytes % 81.1 % [facility] Lymphocytes % 8.3 % [facility] Monocytes % 8.4 % [facility] Eosinophils % 2.1 % [facility] Basophils % 0.1 % [facility] Comment: Test Performed at: [facility] [id number] [facility] [place] [place] [address] HECTOR CR MD Blood BLOOD SPECIMEN / Unknown 05/28/2025 9:17 AM CDT 05/28/2025 9:17 AM CDT us Davi Allred DO LAB - HEMATOLOGY ORDERABLES Danitza song Result [facility] [address] [place] [address] * (ABNORMAL) COMPREHENSIVE METABOLIC PANEL (05/28/2025 9:17 AM CDT) Glucose 169(H) 65 - 99 mg/dL [facility] Comment: Fasting reference interval For someone without known diabetes, a glucose value >125 mg/dL indicates that they may have diabetes and this should be confirmed with a follow-up test. BUN 18 7 - 25 mg/dL [facility] Creatinine 0.61 0.60 - 1.00 mg/dL [facility] eGFR by Cystatin C 94 > OR = 60 mL/min/1. 73m2 [facility] BUN/Creatinine Ratio SEE NOTE: 6 - 22 (calc) [facility] Comment: Not Reported: BUN and Creatinine are within reference range. Sodium 138 135 - 146 mmol/L [facility] Potassium 4.8 3.5 - 5.3 mmol/L [facility] Chloride 102 98 - 110 mmol/L [facility] CO2 29 20 - 32 mmol/L [facility] Calcium 8.6 8.6 - 10.4 mg/dL [facility] Protein Total 5.4(L) 6.1 - 8.1 g/dL [facility] Albumin 3.2(L) 3.6 - 5.1 g/dL [facility] Globulin Total 2.2 1.9 - 3.7 g/dL (calc) [facility] Albumin/Globulin Ratio 1.5 1.0 - 2.5 (calc) [facility] Bilirubin Total 0.1(L) 0.2 - 1.2 mg/dL [facility] Alkaline Phosphatase 123 37 - 153 U/L [facility] AST 17 10 - 35 U/L [facility] ALT 28 6 - 29 U/L [facility] Comment: Test Performed at: [facility] [id number] [facility] [place] [address] HECTOR CR MD Blood BLOOD SPECIMEN / Unknown 05/28/2025 9:17 AM CDT 05/28/2025 9:17 AM CDT Davi Allred DO LAB - CHEMISTRY ORDERABLES Final Result Performing Organization Address [facility] de Phone Number [facility] [phone] [place] [address] * HEPATITIS C AB W/RFLX TO HCV RNA QN PCR (01/23/2025 11:05 AM CDT) Hepatitis C Antibody NON-REACTI VE NON-REACT KALEE [facility] Comment: HCV antibody was non-reactive. There is no laboratory evidence of HCV infection. In most cases, no further action is required. However, if recent HCV exposure is suspected, a test for HCV RNA (test code 36219) is suggested. For additional information please refer to http://education.Mavent/faq/AGY54z9 (This link is being provided for informational/ educational purposes only.) Test Performed at: [facility] [id number] [place] [address] HECTOR CR MD Blood BLOOD SPECIMEN / Unknown 01/23/2025 11:05 AM CDT 01/23/2025 11:06 AM CDT Davi Allred DO LAB - CHEMISTRY ORDERABLES Final Result Performing Organization Address [facility] de Phone Number [facility] [phone] [place] [address] from Last 3 Months or Most Recently Relevant to Health Maintenance Insurance ANTHEM Care Teams Assistant Surveyor Relationship Specialty Start Date End Date Jareth Lopez MD [address] [place] [address] PCP - General Family Medicine 01/22/25
--- OUTSIDE RECORDS SUMMARY | 2025-06-01 12:52 | XMS_ITS ---
Author Organization [facility] Address [address] [place] [address] Phone Care Team Providers Care Service Engine Repairer Name Role Phone Jareth Lopez MD [...]
--- NOTE | 2025-06-01 13:01 | ECHO_ITS ---
Patient Info Name: Elena Fernández Age: 74 years : 1950 Gender: Female Ht: 63 in Wt: 128 lbs BSA: 1.61 m2 HR: 72 bpm BP: 111 / 71 mmHg Heart Rhythm: Sinus Rhythm Technical Quality: Good Exam Date: 06/01/2025 1:13 PM Patient Status: O Admit Date: 06/01/2025 Exam Type: CA echo doppler color flow Complete two-dimensional, color flow and Doppler transthoracic echocardiogram is performed. Tracer Bullet Section Supervisor: Landen Manuel III Attending Provider: Hany Grove DO Summary 1. Complete two-dimensional, color flow and Doppler transthoracic echocardiogram is performed. 2. There is moderate aortic valve sclerosis. 3. There is mild aortic valve stenosis with a peak velocity of 278 cm/s, mean gradient of 14 mmHg, and aortic valve area of 1.9 cm2. 4. There is mild aortic valve regurgitation. 5. Left ventricular chamber dimension is normal. 6. Left ventricular systolic function is hyperdynamic, estimated at >70. 7. There is mild concentric increased left ventricular wall thickness. 8. The left ventricular diastolic function is grade I diastolic dysfunction. 9. E/e' 11 is mildly elevated. 10. Left atrial chamber dimension is mildly enlarged. 11. The mitral valve has a mildly calcified annulus. 12. There is mild mitral valve regurgitation. 13. There is trace tricuspid valve regurgitation. 14. There is trace pulmonic regurgitation. 15. Dilated inferior vena cava with >50% collapse upon inspiration consistent with elevated right atrial pressure, 10 mmHg. Left Ventricle E/e' 11 is mildly elevated. Left ventricular chamber dimension is normal. Left ventricular systolic function is hyperdynamic, estimated at >70. There is mild concentric increased left ventricular wall thickness. The left ventricular diastolic function is grade I diastolic dysfunction. Right Ventricle Right ventricular chamber dimension is normal. Right ventricular systolic function is normal and with normal TAPSE 2.2 cm. Left Atria Left atrial chamber dimension is mildly enlarged. Right Atria Right atrial chamber dimension is normal. Aortic Valve The aortic valve is trileaflet. There is moderate aortic valve sclerosis. There is mild aortic valve stenosis with a peak velocity of 278 cm/s, mean gradient of 14 mmHg, and aortic valve area of 1.9 cm2. There is mild aortic valve regurgitation. Pulmonic Valve There is trace pulmonic regurgitation. Mitral Valve The mitral valve has a mildly calcified annulus. There is no mitral valve stenosis. There is mild mitral valve regurgitation. Tricuspid Valve There is trace tricuspid valve regurgitation. RVSP is not measured due to an inadequate TR jet. Pericardium/Pleural There is no pericardial effusion. Inferior Vena Cava Dilated inferior vena cava with >50% collapse upon inspiration consistent with elevated right atrial pressure, 10 mmHg. Aorta The aortic root size at the sinus of Valsalva is normal. Left Ventricular Outflow Tract Name Value Normal LVOT 2D LVOT Diameter 2.0 cm LVOT Doppler LVOT Peak Velocity 132 cm/s LVOT Peak Gradient 7 mmHg LVOT Mean Gradient 4 mmHg LVOT VTI 32 cm LVOT VTI/AV VTI Ratio 0.6 LVOT Stroke Volume 96 ml LVOT CO 16.9 l/min LVOT CI 10.5 l/min/m2 Pulmonic Valve Name Value Normal PV Doppler PV Peak Velocity 145 cm/s PV Peak Gradient 8 mmHg PV Mean Gradient 4 mmHg Mitral Valve Name Value Normal MV Doppler MV Peak Gradient 9 mmHg MV Mean Gradient 4 mmHg MV Area (Cont Eq VTI) 2.6 cm2 MV Diastolic Function MV E Peak Velocity 132 cm/s MV A Peak Velocity 153 cm/s MV E/A 0.9 MV Decel Time (PW) 310 ms MV Annular TDI MV E/e' (Septal) 14.2 MV E/e' (Lateral) 10.2 MV E/e' (Average) 12.2 Tricuspid Valve Name Value Normal Estimated PAP/RSVP RA Pressure 10 mmHg <=5 TV Annular TDI TV Lateral Gloria s' Velocity 12.2 cm/s >=9.5 Aortic Valve Name Value Normal AV Doppler AV Peak Velocity 278 cm/s AV Peak Gradient 30 mmHg AV Mean Gradient 14 mmHg AV VTI 51 cm AV Area (Cont Eq VTI) 1.9 cm2 >=3.0 AV Area (Cont Eq Charles) 1.4 cm2 AV DI (Charles) 0.48 AV Regurgitation 2D LVOT Area 3.0 cm2 Ventricles Name Value Normal LV Dimensions 2D/MM IVS Diastolic Thickness (2D) 1.3 cm 0.6-1.0 LVID Diastole (2D) 3.2 cm 3.8-5.2 LVIW Diastolic Thickness (2D) 1.2 cm 0.6-0.9 LVID Systole (2D) 2.0 cm 2.2-3.5 LVOT Diameter 2.0 cm LV Mass (2D Cubed) 120.92 g 67.00-162.00 LV Mass Index (2D Cubed) 75 g/m2 43-95 Relative Wall Thickness (2D) 0.74 <=0.42 LV Fractional Shortening/Ejection Fraction 2D/MM LV Fractional Shortening (2D) 38 % 27-45 LV EF (2D Teichholz) 69 % LV Diastolic Volume (4C MOD) 50 ml LV EF (4C MOD) 71 % LV Diastolic Length (4C) 7.8 cm LV Systolic Length (4C) 6.4 cm LV Stroke Volume (4C MOD) 35 ml Atria Name Value Normal LA Dimensions LA Volume (4C A-L) 46 ml LA Volume (BP A-L) 51 ml RA Dimensions RA Systolic Major Burt Length (4C) 5.4 cm 2.2-2.8 RA Area (4C) 14.5 cm2 <=18.0 Report Signatures
== END 2025-06-01 12:49 | disposition home or self-care (01) ==
PROVIDERS: PCP Family Medicine; Visit Provider Internal Medicine Cardiovascular Disease
DX: I35.0 Nonrheumatic aortic (valve) stenosis (principal)
CPT/HCPCS: 93306; C8929

== ENCOUNTER 2025-08-22 07:21 | Outpatient (CLI) | payer BC, SELFPAY ==
--- NOTE | ~2025-08-22 | CT_ITS ---
EXAM/PROCEDURE: CT chest abdomen pelvis w con HISTORY: Pancreatic adenocarcinoma-remission since 2020 COMPARISON: 08/12/2024 and November 21, 2022 TECHNIQUE: IV contrast enhanced CT of the chest abdomen and pelvis FINDINGS: CHEST CT: The lungs are clear. No bulky lymphadenopathy or masses. Heart and great vessels stable. The bones appear intact with no aggressive lesion seen. Extra thoracic soft tissues unremarkable. ABDOMEN PELVIS: Postsurgical changes in the proximal pancreatic body and head region stable in appearance. The distal body and tail appear stable. cholecystectomy clips. Liver spleen adrenal glands kidneys and stomach appear stable for technique. Scattered nonpathologic sized retroperitoneal mesenteric lymph nodes as well as at least one pathologic size mesenteric lymph node image 122 series 3 measuring 1.3 cm in short axis, which appears grossly unchanged from the August 2024 exam. Compared to image 74 series 3 of the 2023 exam. No bulky mesenteric or retroperitoneal lymphadenopathy or masses seen. Vascular structures appear patent. No grossly inflamed appendix or AAA. Uterus and adnexal regions appear stable. Moderate amount of stool in otherwise nondistended and unopacified large bowel with no obvious mass or acute process seen. No hydroureteronephrosis. Diffuse degenerative changes throughout the bones which otherwise appear intact. IMPRESSION: 1. No gross evidence of progression in metastatic or malignant disease. Lymphadenopathy in the mesenteric region appear stable. Continued surveillance recommended. 2. No gross acute process seen. 3. Chronic findings as above. Reviewed, dictated and finalized at location A. TER SET PRODUCTION DESIGNER IMPRESSION: 1. No gross evidence of progression in metastatic or malignant disease. Lymphad enopathy in the mesenteric region appear stable. Continued surveillance recomme nded. 2. No gross acute process seen. 3. Chronic findings as above.
[2025-08-22 07:55] LABS: Estimated Glomerular Filt Rate > 60
== END 2025-08-22 07:22 | disposition home or self-care (01) ==
PROVIDERS: PCP Family Medicine; Visit Provider Internal Medicine Hematology & Oncology
DX: C25.9 Malignant neoplasm of pancreas, unspecified (principal); R59.0 Localized enlarged lymph nodes; M19.09 Primary osteoarthritis, other specified site; Z90.411 Acquired partial absence of pancreas; Z90.49 Acquired absence of other specified parts of digestive tract
CPT/HCPCS: 71260; 74177; Q9967